=== PATIENT | male | born 1940 | race Caucasian/White ===

== ENCOUNTER → 2017-09-21 14:53 | Outpatient (CLI) | payer MEDICARE, OTHER, SELFPAY ==
[2017-09-21 18:01] LABS: BNP,B-Type NATRIURETIC PEPTIDE 116.3 pg/mL (0-100)
[2017-09-21 18:04] LABS: Anion Gap 8 (5-15); BUN 20 mg/dL (7-18); BUN/Creat Ratio 15.9 RATIO (10-20); Calcium,Total 8.7 mg/dL (8.5-10.1); Chloride 101 mmol/L (98-107); Creatinine, Serum 1.26 mg/dL (0.70-1.30); EST Glomerular Filtration Rate 59 mL/min (>60); Est Glom Filt Rate - Afr Amer 71 mL/min (>60); Glucose 116 mg/dL (70-110); Potassium 3.8 mmol/L (3.5-5.1); Sodium Level 136 mmol/L (136-145); Thyroid Stim Hormone (TSH) 2.13 uIU/mL (0.358-3.74)
== END ==
PROVIDERS: Family Provider Family Medicine; PCP Family Medicine; Visit Provider Family Medicine
DX: I50.9 Heart failure, unspecified (principal); R06.00 Dyspnea, unspecified
CPT/HCPCS: 36415; 80048; 83880; 84443

== ENCOUNTER → 2017-10-07 13:56 | Outpatient (CLI) | payer MEDICARE, OTHER, SELFPAY | PROVIDERS: Family Provider Family Medicine; PCP Family Medicine; Visit Provider Family Medicine | DX: I50.9 Heart failure, unspecified (principal); R06.00 Dyspnea, unspecified | CPT/HCPCS: 93306 ==

== ENCOUNTER → 2017-11-30 13:47 | Outpatient (CLI) | payer MEDICARE, OTHER, SELFPAY ==
[2017-11-30 15:59] LABS: AST(SGOT) 50 U/L (15-37); Alanine Aminotransfer ALT/SGPT 46 U/L (16-61); Albumin, Serum 3.6 g/dL (3.2-5.0); Alkaline Phosphatase 110 U/L (45-117); Anion Gap 9 (5-15); BUN 21 mg/dL (7-18); BUN/Creat Ratio 15.9 RATIO (10-20); Calcium,Total 8.7 mg/dL (8.5-10.1); Chloride 104 mmol/L (98-107); Creatinine, Serum 1.32 mg/dL (0.70-1.30); EST Glomerular Filtration Rate 56 mL/min (>60); Est Glom Filt Rate - Afr Amer 67 mL/min (>60); Globulin 3.6 g/dL (2.2-4.2); Glucose 102 mg/dL (74-106); Magnesium 1.9 mg/dL (1.6-2.6); Potassium 3.5 mmol/L (3.5-5.1); Protein, Total 7.2 g/dL (6.4-8.2); Sodium Level 141 mmol/L (136-145); T4 Free Direct 1.08 ng/dL (0.76-1.46); Thyroid Stim Hormone (TSH) 3.48 uIU/mL (0.358-3.74)
== END ==
PROVIDERS: Family Provider Family Medicine; PCP Family Medicine; Visit Provider Family Medicine
DX: I49.9 Cardiac arrhythmia, unspecified (principal); I10 Essential (primary) hypertension; E11.9 Type 2 diabetes mellitus without complications; R60.9 Edema, unspecified
CPT/HCPCS: 36415; 80053; 83735; 84439; 84443

== ENCOUNTER → 2017-12-24 12:53 | Outpatient (CLI) | payer MEDICARE, OTHER, SELFPAY ==
--- NOTE | 2017-12-24 12:55 | ECHOD_ITS ---
Reason For Study: NEW ONSET AFIB Procedure This was a 2D Doppler, Color Flow transthoracic echocardiogram. The exam was of poor technical quality due to body habitus. The study was technically difficult. Exam performed in department. Left Ventricle Normal LV size. Moderate concentric left ventricular hypertrophy. Left ventricular systolic function is normal. The estimated ejection fraction is 60 %. Unable to assess diastolic dysfunction due to arrhythmia. No regional wall motion abnormalities noted. Right Ventricle Normal RV size. Normal systolic function. Atria The left atrium is mildly enlarged. The right atrium is moderately enlarged. No doppler evidence for ASD. Mitral Valve There is no mitral annular calcification. Normal mitral valve. Trivial mitral valve insufficiency. Tricuspid Valve Normal tricuspid valve. Mild tricuspid valve insufficiency. Right ventricular systolic pressure estimated to be 37 mmHg. Aortic Valve Trisinus/trileaflet aortic valve. Mild focal aortic valve thickening. Pulmonic Valve The pulmonic valve is not well visualized. Trivial pulmonic valve insufficiency. Great Vessels Normal sized aortic root. Pericardium/Pleural No pericardial effusion. MMode/2D Measurements & Calculations LVIDd: 4.0 cm IVSd: 1.8 cm Ao root diam: 3.3 cm LVIDs: 2.9 cm LVPWd: 1.6 cm RVDd: 4.3 cm FS: 27.6 % LAV(MOD-bp): 77.1 ml EDV(MOD-sp4): 89.4 ml SV(MOD-sp4): 47.0 ml LAV(MOD-bp) Indexed: 33.7 ml/m2 ESV(MOD-sp4): 42.4 ml LAV(MOD-sp2): 88.0 ml EF(MOD-sp4): 52.5 % LAV(MOD-sp4): 64.6 ml LA A4 area: 22.7 cm2 RA A4 area: 21.5 cm2 Doppler Measurements & Calculations MV E max mary: 78.0 cm/sec Ao V2 max: 95.6 cm/sec LV V1 max: 86.7 cm/sec Ao max P.7 mmHg LV V1 max P.0 mmHg PA V2 max: 99.9 cm/sec TR max mary: 270.6 cm/sec TR max P.3 mmHg Interpretation Summary The study was technically difficult. Left ventricular systolic function is normal. The estimated ejection fraction is 60 %. Moderate concentric left ventricular hypertrophy. The left atrium is mildly enlarged. The right atrium is moderately enlarged. Trivial mitral valve insufficiency. Mild tricuspid valve insufficiency. Mild focal aortic valve thickening. Trivial pulmonic valve insufficiency. Right ventricular systolic pressure estimated to be 37 mmHg. Unable to assess diastolic dysfunction due to arrhythmia. Ordering Physician: Man Cha Referring Physician: Man Cha Performed By: Clemencia Matos RDCS
== END ==
PROVIDERS: Family Provider Family Medicine; PCP Family Medicine; Visit Provider Family Medicine
DX: I48.91 Unspecified atrial fibrillation (principal); R60.0 Localized edema
CPT/HCPCS: 93306

== ENCOUNTER → 2018-03-22 10:57 | Day surgery (SDC) | payer MEDICARE, OTHER, SELFPAY ==
[2018-03-21 10:48] VITALS: BMI 37.4
[2018-03-22 11:16] LABS: Prothrombin Time Fingerstick 23.7 SEC (11.9-14.4)
--- NOTE | 2018-03-22 13:08 | OP.PCM_ITS ---
Operative Report Date of Procedure: 03/22/18 CONSCIOUS SEDATION REPORT DATE OF SERVICE: March 22, 2018 BRIEF HISTORY OF PRESENT ILLNESS: The patient is a 77-year-old male who presented to [facility] for elective outpatient cardioversion due to underlying atrial fibrillation. The patient's last surface echocardiogram completed in December 2017 revealed moderate concentric LVH with an ejection fraction of 60%. The patient does have suspected obstructive sleep apnea, but is never undergone formal polysomnogram. He denies a history of COPD or asthma. He is not oxygen dependent at his baseline. He denies any recent constitutional symptoms such as fevers, chills, nausea or vomiting. He has never undergone a previous cardioversion. PHYSICAL EXAMINATION: VITAL SIGNS: Reviewed and were acceptable. GENERAL: The patient is a male, in no apparent distress, speaking in full sentences. HEENT: Normocephalic, atraumatic. Mucous membranes are moist and pink. Good mouth opening noted. Trachea is midline. Good neck mobility. MP III CHEST: S1, S2 irregularly irregular. No murmurs, rubs or gallops were noted. LUNGS: Clear to auscultation bilaterally without appreciable wheezes, rales or rhonchi. ABDOMEN: Soft, nontender, nondistended. Positive bowel sounds. Obese. EXTREMITIES: There is no clubbing, cyanosis or edema. ASA Class: II DESCRIPTION OF PROCEDURE: After confirmation of informed consent, the patient's anesthesia plan was reviewed in detail. Propofol was chosen. Risks and benefits were reviewed and the patient agreed to proceed. At 1238, the patient was given 40 mg of propofol. The patient achieved an appropriate level of sedation and was given a 200 joule synchronized cardioversion by Dr. Sanabria at the bedside. This was successful in achieving normal sinus rhythm. The patient was monitored until 1246, at which time he reached his baseline mental status and function. The patient tolerated the procedure well. COMPLICATIONS: None ESTIMATED BLOOD LOSS: None RECOMMENDATIONS: Okay to recover in usual fashion. Code Visit 9xxxx: Other Procedure See Report - [id number]
--- NOTE | 2018-03-22 13:50 | PCM.OP.BLANK ---
Problem List (1) Atrial fibrillation Status: Acute Qualifiers: Atrial fibrillation type: persistent Qualified Code(s): I48.1 - Persistent atrial fibrillation Operative Report Date of Procedure: 03/22/18 Procedure: Synchronized biphasic DC cardioversion Indications: Atrial fibrillation Consent: Per the patient Anesthesia: Per Dr. Dalton of pulmonology and critical care medicine with propofol 40 mg IV push total Procedure: Synchronized biphasic DC cardioversion: 200 J ?1: Result: Sinus rhythm; PACs Complications: No apparent complications This note was generated with TRIRIGAation software. It may contain incorrect words, spelling, and punctuation that were not noted in checking the note before signing.
--- NOTE | 2018-03-22 13:53 | OP.PCM_ITS ---
Problem List (1) Atrial fibrillation Status: Acute Qualifiers: Atrial fibrillation type: persistent Qualified Code(s): I48.1 - Persistent atrial fibrillation Operative Report Date of Procedure: 03/22/18 Procedure: Synchronized biphasic DC cardioversion Indications: Atrial fibrillation Consent: Per the patient Anesthesia: Per Dr. Dalton of pulmonology and critical care medicine with propofol 40 mg IV push total Procedure: Synchronized biphasic DC cardioversion: 200 J ?1: Result: Sinus rhythm; PACs Complications: No apparent complications This note was generated with CrossTxation software. It may contain incorrect words, spelling, and punctuation that were not noted in checking the note before signing.
== END ==
PROVIDERS: Family Provider Family Medicine; PCP Family Medicine; Visit Provider Internal Medicine Cardiovascular Disease
DX: I48.0 Paroxysmal atrial fibrillation (principal); I48.1 Persistent atrial fibrillation; I10 Essential (primary) hypertension; E78.5 Hyperlipidemia, unspecified; E11.9 Type 2 diabetes mellitus without complications; Z79.01 Long term (current) use of anticoagulants; Z79.84 Long term (current) use of oral hypoglycemic drugs; Z79.899 Other long term (current) drug therapy
CPT/HCPCS: 36416; 85610; 92960; 93005; J7040

== ENCOUNTER → 2018-06-21 12:44 | Outpatient (CLI) | payer MEDICARE, OTHER, SELFPAY ==
--- NOTE | 2018-06-21 12:46 | CT_ITS ---
STUDY: CT LEFT SHOULDER REASON FOR EXAM: Male, 77 years old. Osteoarthritis. RADIATION DOSAGE (If Supplied By Facility): CTDIvol = ( 47.97 ) mGy, DLP = ( 1258.83 ) mGycm TECHNIQUE: The patient was scanned in a multi detector CT scanner. High resolution transaxial imaging was performed without the administration of intravenous contrast material. Sagittal and coronal images were reconstructed. Individualized dose optimization techniques were used for this CT. COMPARISON: None. FINDINGS: There is severe osteoarthritis, with severe articular joint space narrowing, osteoarthritic spurring, articular remodeling, and with articular erosions. There is joint effusion. There is 0.8 cm loose body in the joint. There is decreased subacromial space consistent with chronic rotator cuff tear. There is atrophy of the supraspinatus and infraspinatus muscles Normal glenoid rim, neck and visualized scapula. Normal humeral head, neck and tuberosities. Normal coracoid process. Normal visualized lateral clavicle. There is hypertrophic osteoarthritis with prominent osseous hypertrophy, with a potential for impingement upon the supraspinatus muscle. There is a Type II morphology (curved) acromion, with a neutral orientation. Normal visualized soft tissue structures. Fibrotic densities in the lungs. CT/Extremity Upper without Contra IMPRESSION: Glenohumeral and acromioclavicular arthrosis. Chronic rotator cuff tear. Electronically Signed: Maxim Espinoza MD at 20:34 EDT , Service support ,
== END ==
PROVIDERS: Family Provider Family Medicine; PCP Family Medicine; Referring Provider Specialist; Visit Provider Specialist
DX: Z01.818 Encounter for other preprocedural examination (principal); M19.212 Secondary osteoarthritis, left shoulder
CPT/HCPCS: 73200

== ENCOUNTER 2018-08-03 05:27 | Inpatient (IN) | payer MEDICARE, OTHER, SELFPAY ==
[2018-03-21 10:48] VITALS: BMI 37.4
[2018-07-22 15:35] VITALS: BP 136/65; PULSE 77; RESP 16; TEMP 36.4; O2SAT 97; BMI 37.8
[2018-07-22 16:13] LABS: Absolute Lymphocyte Count 1.33 X10^3/ul (0.83-4.51); Absolute Neutrophil Count 7.3 X10^3/uL (2.0-7.7); Basophil# 0.02 X10^3/uL; Basophil% 0.2 % (0-1); Eosinophil# 0.04 X10^3/uL; Eosinophils% 0.4 % (0-5); Hemoglobin 15.2 g/dl (13.0-16.5); Lymphocyte # 1.33 X10^3/ul (4.0); Lymphocyte % 14.2 % (19-41); Mean Corp Hgb Conc 33.8 g/gl (32-36); Mean Corpuscular Hgb 31.2 pg (27.0-32.0); Mean Corpuscular Volume 92.4 fL (80-94); Mean Platelet Vol. 9.3 fl (6.2-12.0); Monocyte# 0.63 X10^3/uL; Monocyte% 6.7 % (0-10); Neutrophil # 7.34 X10^3/uL (2.7-7.7); Neutrophil % 78.2 % (47-70); Platelet Count 244 K/mm3 (150-450); RBC Distribution Width SD 43.7 fl (35.1-43.9); Red Blood Count 4.87 M/mm3 (4.6-6.2); White Blood Count 9.4 K/mm3 (4.4-11.0)
[2018-07-22 16:14] LABS: POSITIVE COUNT NO; POSITIVE DIFFERENTIAL NO; POSITIVE MORPHOLOGY NO
[2018-07-22 17:07] LABS: Anion Gap 9 (5-15); BUN 21 mg/dL (7-18); BUN/Creat Ratio 16.3 RATIO (10-20); Calcium,Total 8.9 mg/dL (8.5-10.1); Chloride 102 mmol/L (98-107); Creatinine, Serum 1.29 mg/dL (0.70-1.30); EST Glomerular Filtration Rate 57 mL/min (>60); Est Glom Filt Rate - Afr Amer 69 mL/min (>60); Estimated Creatinine Clearance 45.67 ml/min; Glucose 164 mg/dL (74-106); Potassium 3.7 mmol/L (3.5-5.1); Sodium Level 139 mmol/L (136-145)
--- NOTE | 2018-07-22 22:54 | HP.PCM_ITS ---
History and Physical DATE OF SURGERY: 08/03/2018 SCHEDULED PROCEDURE: Left Reverse Total Shoulder Arthroplasty HISTORY OF PRESENT ILLNESS: This is an 78-year-old male whose been having ongoing pain in his left shoulder for several years. Patient does report having an injury years ago when he tripped and fell. He states over the past several months it has progressively increased. Patient has difficult time and pain with activities overhead. Patient has limited motion on the left side when compared to his right dominant side. X-rays do reveal severe rotator cuff arthropathy on the left shoulder. After failing conservative measures and discussing treatment options with Dr. Vick Faulkner, the patient would like to proceed with a reverse left total shoulder arthroplasty. Patient does have a medical history pertinent for history of atrial fibrillation in which she underwent a cardioversion approximately 2-3 months ago. Patient has been on Coumadin. He has been treated and seen by his cash management clerk Dr. Henry. We have obtain surgical clearance from the cash management clerk and able to stop the Coumadin 3-5 days prior to surgery. We will also obtain surgical clearance from the primary care physician. Patient also has medical history pertinent for hypertension, gout, type 2 diabetes mellitus. Patient currently denies any recent chest pain, shortness of breath, fevers chills. REVIEW OF SYSTEMS: ROS: Const: Denies change in appetite, fever and weight change. CV: Reports irregular heartbeat, but denies chest pain and heart murmur. Resp: Denies cough, pneumonia, shortness of breath, tuberculosis and wheezing. GI: Denies constipation, diarrhea, heartburn, nausea, rectal itching, bloody stools and vomiting. : Denies incontinence. Musculo: Reports leg swelling, trouble walking and weakness, but denies pain. Skin: Denies Raynaud's, history of shingles and tattoo. Neuro: Reports difficulty with balance and numbness/tingling but denies ambulatory dysfunction, dizziness and tremor. Psych: Denies anxiety, insomnia and stress. Rowdy/Lymph: Denies anemia, bleeding/bruising tendency and past transfusion. Reviewed, no changes. PAST MEDICAL HISTORY: Advance Care Plan: Other Directive, POA Effective Date: 06/16/2018 Other Directive, LIVING WILL Effective Date: 06/16/2018 PMH: Medical Problems: Arthritis, Congestive Heart Failure (CHF), Diabetes, Gout, High Blood Pressure, Kidney Stones Accidents: Fracture - RT WRIST---1951 Surgical Hx: Hernia Repair - (2009) Kidney Stones - (1999) RT CTR, LT CTR RT TKR - (2003) LT TKR - (2009) Back SX - (2009) Anesthesia Complications: None Assistive Devices: Cane Reviewed, no changes. SOCIAL HISTORY: SH: Marital: .Occupation: Retired.Work Status: Retired.Hand Dominance: Right-handed. Personal Habits: Cigarette Use: Light tobacco smoker (10 or fewer cigarettes/day) - PIPE.Smokeless Tobacco: Never Used Smokeless Tobacco.Alcohol: Denies use.Drug Use: Denies Use.Enjoy Exercising: Never Exercises. Reviewed, no changes. VITALS: Ht: 68.5 Wt: 252lb Wt k.307 BMI: 37.8 BP: 136/80 Pulse: 76 Resp: 16 T: 97.5 T: 36.4C ALLERGIES: No Known Drug Allergy MEDICATIONS: Metformin HCL 500 mg 1 by mouth twice a day, Atenolol 100 mg 1 tab PO daily, Allopurinol 100 mg 1 tab PO daily, Oxybutynin Chloride ER 20mg 1 tab PO daily, Amlodipine Besylate 5 mg 1 tab PO daily, Hydrochlorothiazide 12.5 mg 1 tab PO daily, Warfarin Sodium 2.5 mg 1 tab PO daily, Warfarin Sodium 1 mg 1 tab PO along with 2.5 mg every other day (3.5mg) PRE-OP EXAM: General appearance:NORMAL Other: Eyes: Conjunctivae and lids: NORMAL Pupils: ERR Ears, Nose, Mouth, and Throat: NORMAL Other: Inspection of lips, teeth and gums: NORMAL Other: Neck: Examination of neck: no masses noted. Respiratory: Assessment of respiratory effort: NORMAL Other: Auscultation of lungs: clear to auscultation no wheezes, rhonchi or rales. Cardiovascular: Auscultation of heart: regular rate and rhythm, no murmurs, gallops or rubs. Exam of carotid arteries: NORMAL Other: Gastrointestinal: Exam of abdomen: soft, nontender, nondistended bowel sounds present. PHYSICAL EXAMINATION: Left shoulder is cool to touch without erythema or signs of infection. Patient has tenderness to palpation diffusely left shoulder. Range of motion left shoulder internal rotation to beltline, forward elevation 50 actively, 140 passively, sensation intact to light touch axillary, radial, median, ulnar nerve distribution. Patient has 1/5 supraspinatus strength test. Motor intact to AIN, PA, and ulnar nerve. IMAGING STUDIES: X-rays of the left shoulder reveals severe glenohumeral joint space narrowing with superior migration of the humeral head and impaction lesions on the undersurface of the acromion and lateral greater tuberosity. This is consistent with severe rotator cuff arthropathy. There is associated subchondral sclerosis and osteophyte formation. IMPRESSION: 1. Severe left shoulder rotator cuff arthropathy 2. History of atrial fibrillation: Currently on Coumadin 3. Type 2 diabetes mellitus 4. History of gout 5. Hypertension 6. History of kidney stones. PLAN: Dr. Vick Faulkner did discuss and review with the patient all treatment options including surgical versus nonsurgical options. Patient does wish to proceed with the above-stated procedure. Potential risks, benefits, and complications of the procedure were discussed in detail including but not limited to , infection, nerve and blood vessel damage, persistent pain, numbness, tingling, paresthesias, blood clot, pulmonary embolism, and requirement for possible further surgery. The patient expressed full understanding and has no further questions for the doctor. Patient does agree to proceed with the above-stated procedure and has signed the surgery consent form. This dictation was created using voice recognition software. Phonetic and/or grammatical errors may exist.. ___ I have re-examined the patient. There are no clinical changes since date of exam. ___ See progress notes for changes. ___ Dictated on admission Date: Time: Signature:
[2018-07-27 13:56] LABS: Albumin, Serum 3.4 g/dL (3.2-5.0)
[2018-08-03] VITALS (10 sets, daily range): BP systolic 95–123; BP diastolic 63–76; PULSE 62–73; RESP 16–18; TEMP 36.1–36.7; O2SAT 96–100; BMI 37.8
[2018-08-03] MEDS: Acetaminophen 500 MG Tablet 1000 MG PO ×3 (06:15→22:14)
[2018-08-03] MEDS: Celecoxib 200 MG Capsule 400 MG PO (06:16)
[2018-08-03 06:25] LABS: Bedside Glucose 146 mg/dL (70-110)
[2018-08-03] MEDS: Ipratropium/Albuterol Sulfate 3 ML AMPUL.NEB INHALATION (07:00)
[2018-08-03] MEDS: Cefazolin 2 GM in 0.9% Normal Saline 100 ML IV (07:15)
[2018-08-03] MEDS: Ketorolac 30 MG/ML Syringe (08:40)
--- NOTE | 2018-08-03 08:41 | PCM.OPRPT ---
Report of Operation Date of Procedure: 08/03/18 Pre-Operative Diagnosis: Left shoulder cuff tear arthropathy Post-Operative Diagnosis: Left shoulder cuff tear arthropathy Surgery/Procedure Performed:: Left reverse total shoulder replacement Description of Surgical Findings:: Stable shoulder retail account specialist: Renata Salamanca Type of Anesthesia:: General Anesthesiologist: Jakob Livingston Special Medications: 2 g Ancef, 2 g TXA 1 minute lavage in joint at end of case, 10 mg Decadron, joint cocktail (5 mg Duramorph, 30 mL of 0.5% Ropivicaine, 1000 units of epinephrine, 30 mg of Toradol) vancomycin IV throughout the case Specimen's removed: Bony cuts Estimated Blood Loss (mL): 150 Fluids Replaced: 600 mL crystalloid Description of Procedure: Components used 1. glenoid baseplate for reverse TSA 2. 36, 2 mm eccentric, +2 mm Glenosphere 3. 36 mm, 4mm humeral liner 4. Reverse TSA humeral adapter tray 36, 4mm 5. Humeral stem primary press-fit 4mm size Brief history/Operative indications: 78 yo m with history of l shoulder pain and cuff tear arthropathy. Patient failed conservative measures as mentioned in the H&P. After discussion of risk and benefits of reverse total shoulder replacement including but not limited to blood loss, DVTs, PEs, nerve vessel damage, infection, general risk of anesthesia including loss of life, instability and stiffness patient demonstrating understanding wish to proceed was able to sign informed consent. Medical clearance was obtained. Procedure: On the date of the procedure, patient's L upper extremity was marked in the preoperative area. Patient was taken back to the operating room where they were placed on the table in the supine position. Anesthesia assumed control of the C-spine and airway, then administered anesthetic. All bony prominences were identified well-padded, the head was secured and the patient was placed in the beachchair position at about 35? inclination. Anesthesia remained in control of the C-spine airway throughout the remainder of the procedure. Patient was then appropriately fastened to the table and the L upper extremity was prepped in a sterile fashion. The surgeons then scrubbed. Upon reentering the room, the L upper extremity was draped in a sterile fashion and the incision was marked out. Timeout was called, everyone agreed upon the side, the site, the procedure to be performed, patient identity and antibiotics given. Incision was taken down through skin and subcutaneous tissue, fat down to fascia. The stripe of the deltopectoral interval and cephalic vein were identified and blunt dissection was used to retract the deltoid. The cephalic vein was retracted laterally. Clavipectoral fascia was then incised and a cobra retractor was placed in the wound. The proximal one third of the pectoralis major insertion was released. Pectoralis tendon insertion was used to tenodesed the biceps tendon which was identified in the bicipital groove. Tenodesis was done with #1 Vicryl. Proximally we followed the biceps tendon after transecting it into the rotator interval. The rotator interval was split and the arm was externally rotated. The split was 1 cm medial to the bicipital groove. Subscapularis tendon was released. We released down the anterior portion of the humeral head and a phan elevator was used to release the inferior portion of the humeral head. The arm was externally rotated and the shoulder was dislocated. The [employer] humeral head cutting guide was used to make humeral cut. This was done at 20? retroversion. Once his humeral head cut was made humerus was retracted out of the way and the glenoid was exposed. After exposing the glenoid, the labrum and the remaining proximal biceps were debrided. At this time we are able to view the entire outer edge of the glenoid. A central pin was placed we sequentially reamed over this central pin to 36mm. Once this was completed the central pedicle was drilled. The glenoid baseplate was impacted into place. Wound was closely irrigated out with normal saline we then drilled sequentially for 2 screws. Screws were placed superiorly and inferiorly and tightened down the screws. Once the screws were appropriately tightened into place the glenoid baseplate was compressed against the exposed subchondral bone. A 36 mm glenosphere was impacted into place engaging the Celaya taper. Attention was then turned towards the humerus. The humerus was again externally rotated exposing the proximal portion of the humerus. Central canal finder was then used to open up the canal. We reamed to a 16mm reamer. We then broached to a 16mm stem. We trialed the 4mm liner, with the 4mm humeral baseplate. We obtained an adequate reduction at this time with a nice stable shoulder. Good internal rotation to the gluteus, forward elevation to 140?, external rotation to 20?. Final components were then assembled on the back table, trials were removed and the wound was copiously irrigated with normal saline after dislocating the shoulder. Once the final components were assembled they were impacted into place. Shoulder was then reduced and found to be stable with good range of motion. Subscapularis tendon was not repairable. The wound was then copiously irrigated out with a 1 L normal saline lavage. The deltopectoral fascia was then closed using #1 Vicryl skin was closed using 2-0 Vicryl interrupted sutures and final skin closure was done with 3-0 Monocryl. Steri-Strips are placed for final skin closure. Sterile dressing was placed patient was then placed in a sling and awakened by anesthesia. Patient was then transferred to the PACU for recovery. Postoperative plan: Patient will be admitted to the hospital overnight. They will get physical therapy starting in 2 weeks with normal postoperative regimen. Patient will be placed on asa daily for DVT prophylaxis. The first postoperative appointment will be in 2 weeks for wound check and initiation of phase 1 physical therapy. Grafts/Implants Used: Sloan reunion reverse total shoulder - Complications None - Admit VTE Documentation VTE Present on Admission: No VTE Mechan Device Prophylaxis: SCD's, Thigh High ALBERTO Hose VTE Pharm Prophylaxis ordered?: Yes
[2018-08-03] MEDS: Scopolamine 1mg/72hr Patch 1 PATCH TD (09:45)
--- NOTE | 2018-08-03 09:45 | RAD_ITS ---
STUDY: X-RAY - LEFT SHOULDER REASON FOR EXAM: Male, 78 years old. Status post left shoulder replacement. TECHNIQUE: 2 view(s) of the shoulder. COMPARISON: Comparison is made with prior CT scan of the left shoulder dated June 21, 2018. FINDINGS: The patient is status post left reverse shoulder replacement. There is good alignment. Postoperative soft tissue changes. RAD/Shoulder One View IMPRESSION: Status post left shoulder replacement. There is good alignment. Postoperative soft tissue changes. Electronically Signed: Dong Multani MD at 12:18 EST Tel [phone], Service support ,
[2018-08-03 10:15] LABS: Bedside Glucose 196 mg/dL (70-110)
[2018-08-03] MEDS: Lactated Ringers 1,000 ML 125 ML IV ×3 (10:18→20:29)
[2018-08-03 12:10] LABS: Bedside Glucose 180 mg/dL (70-110)
--- NOTE | 2018-08-03 12:22 | PCM.PN.HOSP ---
Subjective: Patient seen and examined. 78-year-old male past medical history of CHF with preserved EF, type II DM, hypertension, history of gout, kidney stones, who has been having ongoing left shoulder pain after an injury. Pain in the left shoulder has been restricting his activities. He was admitted for elective left shoulder arthroplasty Patient is postop day #0 status post left shoulder arthroplasty Vitals/I&O's: Vital Signs Temp Pulse Resp BP Pulse Ox 97.8 F 64 18 104/71 96 08/03/18 10:41 08/03/18 10:41 08/03/18 10:41 08/03/18 10:41 08/03/18 10:41 Oxygen Flow Rate (L/min) 2 Oxygen Delivery Method Room Air Weight: 116.3 kg Body Mass Index (BMI) 37.8 Finger Stick Blood Glucose 196 Intake and Output for Last 24 Hours 08/01/18 08/02/18 08/03/18 23:59 23:59 23:59 Intake Total 1000 / 1000 Balance 1000 / 1000 General: Alert, Oriented x3, Cooperative, No apparent distress, - - obese HEENT: Atraumatic, PERRLA, EOMI, Normocephalic Oral: Moist Mucosa Neck: Supple, No JVD, Negative Carotid Bruits Lungs: Clear to auscultation, Normal air movement Cardiovascular: Regular rate, No murmurs Abdomen: Bowel Sounds Present, Soft, Non Tender, Non-Distended, No Hepato-splenomegaly Extremities: No edema, Edema - Left shoulder in a brace, dressing and cooling mat in place. Skin: No rashes, No breakdown Musculoskeletal: No Tenderness to Palpation of Joints or Extremities Lymphatic: No Cervical, Supraclavicular, or Inguinal Adenopathy Neurological: Cranial nerves II-XII grossly intact, Neuro grossly intact Psych/Mental Status: Normal Affect, Appropriate Laboratory Results 08/03/18 05:56: POC Glucose 146 H 08/03/18 05:58: POC PT 14.0, INR 1.20 08/03/18 10:09: POC Glucose 196 H 08/03/18 11:54: POC Glucose 180 H Current Medications Acetaminophen (Tylenol) 1,000 mg PO Q8 DENIZ Albuterol Sulfate (Ventolin Aerosols) 2.5 mg INHALATION Q4H PRN PRN PRN Reason: SOB &/OR WHEEZING Allopurinol (Zyloprim) 300 mg PO DAILY@0800 [facility] Amlodipine Besylate (Norvasc) 5 mg PO DAILY [facility] Famotidine (Pepcid) 20 mg PO DAILY [facility] Furosemide (Lasix) 20 mg PO MOWE [facility] Hydrochlorothiazide () 12.5 mg PO DAILY [facility] Cefazolin Sodium () 1 gm in 50 mls @ 150 mls/hr IV Q8H [facility] Stop: 08/03/18 23:19 Lactated Ringer's () 1,000 mls @ 125 mls/hr IV .Q8H [facility] Last Admin: 08/03/18 11:45 Dose: 125 mls/hr Insulin Human Lispro (Humalog Kwikpen (Bkc)) 0 unit SC [facility]; Protocol Last Admin: 08/03/18 11:55 Dose: Not Given Ketorolac Tromethamine (Toradol) 15 mg IV Q6H PRN PRN PRN Reason: PAIN [facility] Last Admin: 08/03/18 10:49 Dose: Not Given Metoprolol Succinate (Toprol Xl (Beta Zeina)) 50 mg PO DAILY [facility] Morphine Sulfate () 2 - 4 mg IV Q2H PRN PRN PRN Reason: Severe pain (6-10) Morphine Sulfate () 2 - 4 mg IV Q2H PRN PRN PRN Reason: Severe pain (6-10) Nutritional Formula (Lactose Free) (Glucerna Shake) 120 [facility] Ondansetron HCl (Zofran) 4 mg IV Q6H PRN PRN PRN Reason: Nausea Oxycodone HCl (Oxyir) 5 - 10 mg PO Q4H PRN PRN PRN Reason: PAIN Potassium Chloride (K-Dur) 20 meq [facility] Last Admin: 08/03/18 10:49 Dose: Not Given Promethazine HCl (Phenergan) 12.5 mg IV Q6H PRN PRN PRN Reason: NAUSEA/VOMITING Scopolamine HBr (Transderm-Scop) 1 patch TD Q3D [facility] Last Admin: 08/03/18 09:45 Dose: 1 patch Senna/Docusate Sodium (Senokot-S, Meseret-Colace) 2 tablet PO BID PRN PRN PRN Reason: Constipation Sodium Chloride () 5 - 15 ml IV UD PRN PRN Reason: SALINE FLUSH Tolterodine Tartrate (Detrol La) 4 mg PO DAILY [facility] Warfarin Sodium (Coumadin (Pbkc)) 2.5 mg PO QODAY@1700 [facility] Warfarin Sodium (Coumadin (Pbkc)) 3 mg PO QODAY@1700 [facility] Medical Necessity - Tobacco Use Smoking Status: Current some day smoker Tobacco Use: Pipe Assessment/Plan All Active Problems Atrial fibrillation (Acute) 78-year-old with past medical history of chronic atrial fibrillation, heart failure preserved EF, hypertension, type II DM, who comes in with complaints of left shoulder pain ongoing for years, limiting his activities. Patient is status post left shoulder replacement. 1. POD #0 status post left total shoulder arthroplasty for left shoulder cuff tear arthroplasty, pain is controlled, further management per orthopedic surgery. 2. Chronic atrial fibrillation, rate controlled, metoprolol, Coumadin, INR is subtherapeutic now at 1.20 3. Hypertension, controlled, on amlodipine, HCTZ, metoprolol, will continue to monitor. 4. Type II DM, HgBA1c is 7.0, on metformin, will continue with accucheks and ISS 5. Gout, no signs of acute gouty attack, on allopurinol 6. DVT PPx- on coumadin, SCDS and early ambulation; INR is subtherapeutic. Code Visit Inpatient E&M: 16509 Subs Hosp L2
--- NOTE | 2018-08-03 12:28 | PN_ITS ---
Subjective: Patient seen and examined. 78-year-old male past medical history of CHF with preserved EF, type II DM, hypertension, history of gout, kidney stones, who has been having ongoing left shoulder pain after an injury. Pain in the left shoulder has been restricting his activities. He was admitted for elective left shoulder arthroplasty Patient is postop day #0 status post left shoulder arthroplasty Vitals/I&O's: Vital Signs Temp Pulse Resp BP Pulse Ox 97.8 F 64 18 104/71 96 08/03/18 10:41 08/03/18 10:41 08/03/18 10:41 08/03/18 10:41 08/03/18 10:41 Oxygen Flow Rate (L/min) 2 Oxygen Delivery Method Room Air Weight: 116.3 kg Body Mass Index (BMI) 37.8 Finger Stick Blood Glucose 196 Intake and Output for Last 24 Hours 08/01/18 08/02/18 08/03/18 23:59 23:59 23:59 Intake Total 1000 / 1000 Balance 1000 / 1000 General: Alert, Oriented x3, Cooperative, No apparent distress, - - obese HEENT: Atraumatic, PERRLA, EOMI, Normocephalic Oral: Moist Mucosa Neck: Supple, No JVD, Negative Carotid Bruits Lungs: Clear to auscultation, Normal air movement Cardiovascular: Regular rate, No murmurs Abdomen: Bowel Sounds Present, Soft, Non Tender, Non-Distended, No Hepato- splenomegaly Extremities: No edema, Edema - Left shoulder in a brace, dressing and cooling mat in place. Skin: No rashes, No breakdown Musculoskeletal: No Tenderness to Palpation of Joints or Extremities Lymphatic: No Cervical, Supraclavicular, or Inguinal Adenopathy Neurological: Cranial nerves II-XII grossly intact, Neuro grossly intact Psych/Mental Status: Normal Affect, Appropriate Laboratory Results 08/03/18 05:56: POC Glucose 146 H 08/03/18 05:58: POC PT 14.0, INR 1.20 08/03/18 10:09: POC Glucose 196 H 08/03/18 11:54: POC Glucose 180 H Current Medications Acetaminophen (Tylenol) 1,000 mg PO Q8 DENIZ Albuterol Sulfate (Ventolin Aerosols) 2.5 mg INHALATION Q4H PRN PRN PRN Reason: SOB &/OR WHEEZING Allopurinol (Zyloprim) 300 mg PO DAILY@0800 [facility] Amlodipine Besylate (Norvasc) 5 mg PO DAILY [facility] Famotidine (Pepcid) 20 mg PO DAILY [facility] Furosemide (Lasix) 20 mg PO MOWE [facility] Hydrochlorothiazide () 12.5 mg PO DAILY [facility] Cefazolin Sodium () 1 gm in 50 mls @ 150 mls/hr IV Q8H [facility] Stop: 08/03/18 23:19 Lactated Ringer's () 1,000 mls @ 125 mls/hr IV .Q8H [facility] Last Admin: 08/03/18 11:45 Dose: 125 mls/hr Insulin Human Lispro (Humalog Kwikpen (Bkc)) 0 unit SC [facility]; Protocol Last Admin: 08/03/18 11:55 Dose: Not Given Ketorolac Tromethamine (Toradol) 15 mg IV Q6H PRN PRN PRN Reason: PAIN Metformin [facility] (Glucophage) [facility] Last Admin: 08/03/18 10:49 Dose: Not Given Metoprolol Succinate (Toprol Xl (Beta Zeina)) 50 mg PO DAILY [facility] Morphine Sulfate () 2 - 4 mg IV Q2H PRN PRN PRN Reason: Severe pain (6-10) Morphine Sulfate () 2 - 4 mg IV Q2H PRN PRN PRN Reason: Severe pain (6-10) Nutritional Formula (Lactose Free) (Glucerna Shake) 120 [facility] Ondansetron HCl (Zofran) 4 mg IV Q6H PRN PRN PRN Reason: Nausea Oxycodone HCl (Oxyir) 5 - 10 mg PO Q4H PRN PRN PRN Reason: PAIN Potassium Chloride (K-Dur) 20 meq [facility] Last Admin: 08/03/18 10:49 Dose: Not Given Promethazine HCl (Phenergan) 12.5 mg IV Q6H PRN PRN PRN Reason: NAUSEA/VOMITING Scopolamine HBr (Transderm-Scop) 1 patch TD Q3D [facility] Last Admin: 08/03/18 09:45 Dose: 1 patch Senna/Docusate Sodium (Senokot-S, Meseret-Colace) 2 tablet PO BID PRN PRN PRN Reason: Constipation Sodium Chloride () 5 - 15 ml IV UD PRN PRN Reason: SALINE FLUSH Tolterodine Tartrate (Detrol La) 4 mg PO DAILY [facility] Warfarin Sodium (Coumadin (Pbkc)) 2.5 mg PO QODAY@1700 [facility] Warfarin Sodium (Coumadin (Pbkc)) 3 mg PO QODAY@1700 [facility] Medical Necessity - Tobacco Use Smoking Status: Current some day smoker Tobacco Use: Pipe Assessment/Plan All Active Problems Atrial fibrillation (Acute) 78-year-old with past medical history of chronic atrial fibrillation, heart failure preserved EF, hypertension, type II DM, who comes in with complaints of left shoulder pain ongoing for years, limiting his activities. Patient is status post left shoulder replacement. 1. POD #0 status post left total shoulder arthroplasty for left shoulder cuff tear arthroplasty, pain is controlled, further management per orthopedic surgery. 2. Chronic atrial fibrillation, rate controlled, metoprolol, Coumadin, INR is subtherapeutic now at 1.20 3. Hypertension, controlled, on amlodipine, HCTZ, metoprolol, will continue to monitor. 4. Type II DM, HgBA1c is 7.0, on metformin, will continue with accucheks and ISS 5. Gout, no signs of acute gouty attack, on allopurinol 6. DVT PPx- on coumadin, SCDS and early ambulation; INR is subtherapeutic. Code Visit Inpatient E&M: 14899 Subs Hosp L2
[2018-08-03] MEDS: hydroCHLOROthiazide 12.5mg 12.5 MG PO (12:41)
[2018-08-03] MEDS: Famotidine 20 MG Tablet PO (12:41)
[2018-08-03] MEDS: Tolterodine Tartrate 4 MG CAP.SA PO (12:42)
[2018-08-03] MEDS: Allopurinol 300 MG Tablet PO (12:42)
[2018-08-03] MEDS: Cefazolin 1 GM/50 ML BAG IV ×2 (15:00→22:57)
[2018-08-03 16:35] LABS: Bedside Glucose 169 mg/dL (70-110)
[2018-08-03 22:36] LABS: Bedside Glucose 118 mg/dL (70-110)
[2018-08-03] MEDS: MELATONIN 10 MG TABLET 5 MG PO (23:15)
[2018-08-04 02:35] VITALS: BP 126/70; PULSE 80; RESP 18; TEMP 36.8; O2SAT 95
[2018-08-04] MEDS: 0.9% NaCl Peripheral Flush Adult/Peds IV (03:03)
[2018-08-04] MEDS: Ketorolac 15 MG/ML Vial IV (03:03)
[2018-08-04 06:35] VITALS: BP 146/87; PULSE 99; RESP 20; TEMP 36.7; O2SAT 96
--- NOTE | 2018-08-04 06:40 | NURSING ---
SCOURING TRAIN OPERATOR CHIEF notified this nurse that pt was found sitting on the floor. Pt stated that I was leaning over to get my cane and slid out of the chair.. States that he did not hit his head or his shoulder. No injuries noted. Neuro checks wnl. BP 146/87, HR 99, R 20, 96% RA. Hand tank farm attendant equal. Denies pain, numbness/tingling to lt shoulder/hand. Call light was in reach, pt denied using it. Dr Faulkner notified. made aware.
[2018-08-04] MEDS: Acetaminophen 500 MG Tablet 1000 MG PO ×3 (06:47→22:18)
[2018-08-04 06:56] LABS: Bedside Glucose 140 mg/dL (70-110)
[2018-08-04 07:20] VITALS: BP 125/70; PULSE 80; RESP 18; TEMP 36.8; O2SAT 95
--- NOTE | 2018-08-04 07:41 | PN.ORTHO_ITS ---
Subjective: Patient is doing well this morning. He did have a reported fall overnight when he was trying to get out of his bed sounds like he slipped over the side of the bed when leaning forward. He reported some pulling in his shoulder during the time of the incident while they were helping him up however he reports no significant change in pain in his shoulder right now. X-rays been ordered we will follow-up on those. He has no chest pain or shortness of breath. He still eager to be discharged home today. Objective: Postoperative left shoulder radiographs show stable well-placed well reduced left reverse total shoulder replacement. - Physical Exam General: Alert, Oriented x3, Cooperative Extremities: - - Left upper extremity: Dressing has small area of spotting roughly the size of a quarter. Otherwise intact. Sensations intact light touch axillary/R/M/U. Motor is intact R/M/2 distally. Palpable radial pulse. Vital Signs Temp Pulse Resp BP Pulse Ox 98.2 F 80 18 126/70 H 95 08/04/18 02:35 08/04/18 02:35 08/04/18 02:35 08/04/18 02:35 08/04/18 02:35 Oxygen Flow Rate (L/min) 2 Oxygen Delivery Method Room Air Weight: 256 lb 6.362 oz Body Mass Index (BMI) 37.8 Finger Stick Blood Glucose 196 Intake and Output for Last 24 Hours 08/02/18 08/03/18 08/04/18 23:59 23:59 23:59 Intake Total 2189 / 2189 1396 / 1396 Output Total 200 / 200 Balance 2189 / 2189 1196 / 1196 POC Glucose 08/04/18 08/03/18 08/03/18 06:44 22:12 16:25 POC Glucose 140 H 118 H 169 H 08/03/18 08/03/18 11:54 10:09 POC Glucose 180 H 196 H Medical Necessity - Tobacco Use Smoking Status: Current some day smoker Tobacco Use: Pipe Assessment/Plan All Active Problems Atrial fibrillation (Acute) Postop day 1 left reverse total shoulder replacement, with follow overnight 1. Fall: We will have physical therapy assess for ambulation and transfers if he does well we will plan for discharge today 2. DVT prophylaxis: Aspirin daily 3. Therapy: PT to assess ambulation and transfers. OT for ADLs 4. Pain control: Pain controlled under current regimen 5. Disposition: Patient is doing well aside from the fall. Will obtain follow- up x-rays and have physical therapy assist in ambulation and transfers. If he does well we will plan on discharge today. [facility] Office:
--- NOTE | 2018-08-04 07:42 | PN_ITS ---
Subjective: Patient was seen and examined. No acute events. Denies any pain. Eyes any chest pain or dizziness or palpitation. In the left arm sling immobilizer. Objective: Physical exam: General: Alert, Oriented x3, Cooperative, No apparent distress, - - obese HEENT: Atraumatic, PERRLA, EOMI, Normocephalic Oral: Moist Mucosa Neck: Supple, No JVD, Negative Carotid Bruits Lungs: Clear to auscultation, Normal air movement Cardiovascular: Regular rate, No murmurs Abdomen: Bowel Sounds Present, Soft, Non Tender, Non-Distended, No Hepato- splenomegaly Extremities: No edema, Edema - Left shoulder in a brace, dressing and cooling mat in place. Skin: No rashes, No breakdown Musculoskeletal: No Tenderness to Palpation of Joints or Extremities Lymphatic: No Cervical, Supraclavicular, or Inguinal Adenopathy Neurological: Cranial nerves II-XII grossly intact, Neuro grossly intact Psych/Mental Status: Normal Affect, Appropriate Vitals/I&O's: Vital Signs Temp Pulse Resp BP Pulse Ox 98.2 F 80 18 126/70 H 95 08/04/18 02:35 08/04/18 02:35 08/04/18 02:35 08/04/18 02:35 08/04/18 02:35 Oxygen Flow Rate (L/min) 2 Oxygen Delivery Method Room Air Weight: 116.3 kg Body Mass Index (BMI) 37.8 Finger Stick Blood Glucose 196 Intake and Output for Last 24 Hours 08/02/18 08/03/18 08/04/18 23:59 23:59 23:59 Intake Total 2189 / 2189 1396 / 1396 Output Total 200 / 200 Balance 2189 / 2189 1196 / 1196 Laboratory Results 08/03/18 10:09: POC Glucose 196 H 08/03/18 11:54: POC Glucose 180 H 08/03/18 16:25: POC Glucose 169 H 08/03/18 22:12: POC Glucose 118 H 08/04/18 06:44: POC Glucose 140 H Current Medications Acetaminophen (Tylenol) 1,000 mg PO Q8 DENIZ Last Admin: 08/04/18 06:47 Dose: 1,000 mg Albuterol Sulfate (Ventolin Aerosols) 2.5 mg INHALATION Q4H PRN PRN PRN Reason: SOB &/OR WHEEZING Allopurinol (Zyloprim) 300 mg PO DAILY@0800 [facility] Last Admin: 08/03/18 12:42 Dose: 300 mg Amlodipine Besylate (Norvasc) 5 mg PO DAILY [facility] Famotidine (Pepcid) 20 mg PO DAILY [facility] Last Admin: 08/03/18 12:41 Dose: 20 mg Furosemide (Lasix) 20 mg PO MOWEFR [facility] Last Admin: 08/03/18 12:45 Dose: Not Given Hydrochlorothiazide () 12.5 mg PO DAILY [facility] Last Admin: 08/03/18 12:41 Dose: 12.5 mg Insulin Human Lispro (Humalog Kwikpen (Bkc)) 0 unit SC [facility]; Protocol Last Admin: 08/04/18 06:46 Dose: Not Given Ketorolac Tromethamine (Toradol) 15 mg IV Q6H PRN PRN PRN Reason: PAIN Last Admin: 08/04/18 03:03 Dose: 15 mg Melatonin (Melatonin) 5 mg PO QHS PRN PRN Reason: SLEEP Last Admin: 08/03/18 23:15 Dose: 5 mg Metformin [facility] ([facility]) [facility] Last Admin: 08/03/18 16:26 Dose: 500 mg Metoprolol Succinate (Toprol Xl (Beta Zeina)) 50 mg PO DAILY [facility] Morphine Sulfate () 2 - 4 mg IV Q2H PRN PRN PRN Reason: Severe pain (6-10) Morphine Sulfate () 2 - 4 mg IV Q2H PRN PRN PRN Reason: Severe pain (6-10) Nutritional Formula (Lactose Free) (Glucerna Shake) [facility] Last Admin: 08/03/18 16:27 Dose: Not Given Ondansetron HCl (Zofran) 4 mg IV Q6H PRN PRN PRN Reason: Nausea Oxycodone HCl (Oxyir) 5 - 10 mg PO Q4H PRN PRN PRN Reason: PAIN Potassium Chloride (K-Dur) [facility] Last Admin: 08/03/18 10:49 Dose: Not Given Promethazine HCl (Phenergan) 12.5 mg IV Q6H PRN PRN PRN Reason: NAUSEA/VOMITING Scopolamine HBr (Transderm-Scop) 1 patch TD Q3D [facility] Last Admin: 08/03/18 09:45 Dose: 1 patch Senna/Docusate Sodium (Senokot-S, Meseret-Colace) 2 tablet PO BID PRN PRN PRN Reason: Constipation Sodium Chloride () 5 - 15 ml IV UD PRN PRN Reason: SALINE FLUSH Last Admin: 08/04/18 03:03 Dose: 10 ml Tolterodine Tartrate (Detrol La) 4 mg PO DAILY [facility] Last Admin: 08/03/18 12:42 Dose: 4 mg Warfarin Sodium (Coumadin (Pbkc)) 2.5 mg PO QODAY@1700 [facility] Warfarin Sodium (Coumadin (Pbkc)) 3 mg PO QODAY@1700 [facility] Medical Necessity - Tobacco Use Smoking Status: Current some day smoker Tobacco Use: Pipe Assessment/Plan All Active Problems Atrial fibrillation (Acute) 78-year-old with past medical history of chronic atrial fibrillation, heart failure preserved EF, hypertension, type II DM, who comes in with complaints of left shoulder pain ongoing for years, limiting his activities. Patient is status post left shoulder replacement. 1. POD #1 status post left total shoulder arthroplasty for left shoulder cuff tear arthroplasty, pain is controlled, in left arm sling immobilizer, PT and OT consulted, further management per orthopedic surgery. 2. Chronic atrial fibrillation, rate controlled, metoprolol and Coumadin, INR is subtherapeutic now at 1.30 3. Hypertension, controlled, on amlodipine, HCTZ, metoprolol, will continue to monitor. 4. Type II DM, HgBA1c is 7.0, blood sugars are fairly controlled, on metformin, will continue with accucheks and ISS 5. Gout, no signs of acute gouty attack, on allopurinol 6. DVT PPx- on coumadin, SCDS and early ambulation; INR is subtherapeutic. Code Visit Inpatient E&M: 84691 Subs Hosp L2
[2018-08-04 08:23] LABS: International Normalized Ratio 1.3; Prothrombin Time (Protime)PT. 15.8 SECONDS (11.7-14.9)
--- NOTE | 2018-08-04 10:33 | RAD_ITS ---
STUDY: X-RAY - LEFT SHOULDER REASON FOR EXAM: Male, 78 years old. Recent shoulder replacement. Pain following fall. TECHNIQUE: 2 view(s) of the shoulder. COMPARISON: Comparison is made with prior study dated August 03, 2018. FINDINGS: The patient is status post left shoulder replacement of the reverse type. There is good alignment. Postoperative soft tissue swelling. Normal visualized pulmonary apex. RAD/Shoulder min 2 Views IMPRESSION: Status post left shoulder replacement. There has been no change. Electronically Signed: Dong Multani MD at 10:46 EST Tel [phone], Service support ,
[2018-08-04] MEDS: Famotidine 20 MG Tablet PO (10:41)
[2018-08-04] MEDS: amLODIPine 5 MG Tablet PO (10:42)
[2018-08-04] MEDS: Allopurinol 300 MG Tablet PO (10:42)
[2018-08-04] MEDS: Tolterodine Tartrate 4 MG CAP.SA PO (10:42)
[2018-08-04] MEDS: hydroCHLOROthiazide 12.5mg 12.5 MG PO (10:42)
[2018-08-04 10:43] VITALS: PULSE 82
[2018-08-04] MEDS: Metoprolol(XL)Succ 50 MG Tablet PO (10:43)
[2018-08-04] MEDS: Glucerna Shake 120 ML LIQUID PO ×2 (10:46→16:13)
--- NOTE | 2018-08-04 10:47 | DCINST_ITS ---
Discharge Diet: 1800 Calorie Control Diet Discharge Activity: May Not Drive May shower in (days): 1 - Turned dressing away from water Ice area for (Minutes): 20 - Ice area for 20 minutes each hour while awake Weight Bearing Status: Weight bearing as tolerated Keep extremity elevated above heart level: Operative Extremity Call your doctor if your incision/area has: Continuous Slow Oozing, Sudden Increased Bleeding, Increased Pain/ Swelling, Increased Redness, Foul Smelling Discharge Call your doctor if you observe: Fever of 101 or Higher, Coldness, Increased Pain, Numbness or Tingling, Change in Color Remove Dressing in (days):: 4 - Okay to remove on August 08, 2018 Additional Instructions: Follow [facility] postop instructions Allergies/Adverse Reactions: Allergies No Known Allergies Allergy (Verified 07/22/18 15:08) Medications to take at Discharge Allopurinol 300 mg PO DAILY 07/23/15 Metformin HCl [Glucophage] 500 mg PO BIDCM 07/23/15 Albuterol Inhaler [Ventolin Hfa] 2 puff INHALATION Q4H PRN PRN 03/21/18 Amlodipine [Norvasc] 5 mg PO DAILY 03/21/18 Furosemide [Lasix] 20 mg PO MOWEFR 03/21/18 Metoprolol Succinate [Toprol Xl] 50 mg PO DAILY 03/21/18 Oxybutynin Chloride [Ditropan Xl] 10 mg PO BID 03/21/18 Warfarin [Coumadin] 2.5 mg PO QODAY 03/21/18 Warfarin [Coumadin] 3 mg PO QODAY 03/21/18 hydroCHLOROthiazide [Hydrochlorothiazide] 12.5 mg PO DAILY 03/21/18 Magnesium 250 mg PO DAILY 07/22/18 Potassium Chloride [Klor-Con] 20 meq PO DAILY 07/22/18 Vitamin B Complex 1 each PO DAILY 07/22/18 Acetaminophen [Tylenol Extra Strength] 1,000 mg PO Q4H PRN PRN #100 tab 08/04/18 Oxycodone [Oxyir] 5 - 10 mg PO Q4H PRN PRN 4 Days #30 tab 08/04/18 Senna/Docusate Sodium [Senokot-S] 2 tab PO BID PRN PRN #20 tab 08/04/18 The following prescriptions were given: Acetaminophen [Tylenol Extra Strength] 1,000 mg PO Q4H PRN PRN #100 tab PRN Reason: Pain Oxycodone [Oxyir] 5 - 10 mg PO Q4H PRN PRN 4 Days #30 tab PRN Reason: Pain Senna/Docusate Sodium [Senokot-S] 2 tab PO BID PRN PRN #20 tab PRN Reason: Constipation Primary Care Physician: Man Cha MD [Primary Care Provider] - Test Results: Test results from this visit will be discussed in further detail at your follow- up appointment, if applicable. Please Follow Up With: [facility] When: 08/18/18 @ 3:30 pm with [place] Please Follow Up With: Dennis Page PA-C When: 08/18/18 @ 2:15 pm
--- NOTE | 2018-08-04 11:45 | CASEMGMT ---
ANTONIETA SCHWARTZ Face to Face with patient for initial transition planning/care coordination assessment. ANTONIETA SCHWARTZ introduced self and role at [facility]. Patient sitting in chair, alert and oriented, at bedside. Patient willing to participate in assessment and is able to answer all questions appropriately. Care providers, pharmacy, and demographics verified. Patient wishes to discharge home, discussed therapy's recommendations for placement at discharge. Patient and agreeable to placement with first choice TCU. Patient states he has no further needs or concerns at this time. FRANKLYN Levin updated with request for placement. Disposition Plan: Patient to discharge to TCU pending acceptance. Halina GUERRIER, RN, CM
[2018-08-04 11:51] LABS: Bedside Glucose 166 mg/dL (70-110)
[2018-08-04 13:20] VITALS: BP 139/77; PULSE 88; RESP 16; TEMP 36.9; O2SAT 99
--- NOTE | 2018-08-04 13:30 | CASEMGMT ---
Received update from that patient was accepted to TCU with planned discharge for Monday 08/06. ANTONIETA CM updated patient and .
[2018-08-04 16:21] LABS: Bedside Glucose 155 mg/dL (70-110)
--- NOTE | 2018-08-04 16:32 | CASEMGMT ---
Social Work Note SW received referral from RN EFREN that pt would like to go to TCU at discharge. SW placed a call to Beth in TCU. Per Beth she is able to accept pt. Plan: TCU Wednesday Halina Levin DATA ANALYST ETL DEVELOPER, CLAM BED WORKER
[2018-08-04 20:01] VITALS: BP 125/73; PULSE 100; RESP 18; TEMP 37.2; O2SAT 96
[2018-08-04 22:25] LABS: Bedside Glucose 133 mg/dL (70-110)
[2018-08-04] MEDS: MELATONIN 10 MG TABLET 5 MG PO (22:54)
[2018-08-05 02:12] VITALS: BP 157/107; PULSE 88; RESP 18; TEMP 37.1; O2SAT 96
[2018-08-05] MEDS: Acetaminophen 500 MG Tablet 1000 MG PO ×3 (06:45→22:08)
[2018-08-05 07:10] LABS: Bedside Glucose 117 mg/dL (70-110)
--- NOTE | 2018-08-05 07:32 | PN.ORTHO_ITS ---
Subjective: The patient was sitting in bed upon examination. Patient denies any chest pain, shortness of breath, dizziness, lightheadedness, nausea or vomiting, or calf pain. Pain is controlled on medications. No adverse overnight events. Plan was for possible discharge home yesterday. However patient did sustain a fall and after having therapy assessment patient is a fall risk. He has very unsteady when he is on his feet. Nursing states it took 2-3 people for patient to use the restroom due to his unsteadiness. At this time case management has b bethany on board and patient will be placed in transitional care unit. They are able to accept him tomorrow. Objective: Dressing is with minimal drainage over the distal one third which has been stable from yesterday Ultra-sling fitting appropriately Sensation intact to axillary, radial, median, and ulnar distribution Motor intact to AIN, PIN, and ulnar nerve - Physical Exam General: Alert, Oriented x3, Cooperative, No apparent distress Vital Signs Temp Pulse Resp BP Pulse Ox 98.7 F 88 18 157/107 H 96 08/05/18 02:12 08/05/18 02:12 08/05/18 02:12 08/05/18 02:12 08/05/18 02:12 Oxygen Flow Rate (L/min) 2 Oxygen Delivery Method Room Air Weight: 116.3 kg Body Mass Index (BMI) 37.8 Finger Stick Blood Glucose 196 Intake and Output for Last 24 Hours 08/03/18 08/04/18 08/05/18 23:59 23:59 23:59 Intake Total 2189 / 2189 2136 / 2136 200 / 200 Output Total 775 / 775 1450 / 1450 Balance 2189 / 2189 1361 / 1361 -1250 / -1250 Laboratory Tests Past 24 Hrs 08/04/18 07:52 PT 15.8 H INR 1.3 POC Glucose 08/05/18 08/04/18 08/04/18 06:41 22:17 16:12 POC Glucose 117 H 133 H 155 H 08/04/18 11:48 POC Glucose 166 H Medical Necessity - Tobacco Use Smoking Status: Current some day smoker Tobacco Use: Pipe Assessment/Plan All Active Problems Atrial fibrillation (Acute) 1. S/P left reverse total shoulder arthroplasty POD #2 2. Continue Pain Medications: Tylenol and OxyIR 3. DVT Prophylaxis: Patient has been placed back on his warfarin 4. PT/OT: No formal physical therapy until 2 weeks postoperatively. Physical therapy can work on pendulum exercises for the left shoulder. Also work on elbow, wrist, hand range of motion. 5. Continue postoperative medical management per medicine 6. Encouraged Incentive Spirometry 7. Disposition: Due to patient's fall risk and unsteadiness, patient will require transfer to half-way facility. Patient will be going to the transitional care unit at [facility] tomorrow August 06, 2018. Patient's prescriptions are attached to the chart.
[2018-08-05 08:00] VITALS: BP 133/90; PULSE 88; RESP 20; TEMP 36.8; O2SAT 94
--- NOTE | 2018-08-05 08:57 | PN_ITS ---
Subjective: Patient was seen and examined. He feels better. Denies any dizziness or shortness of breath. Waiting on insurance precertification for discharge to TCU Objective: Physical exam: General: Alert, Oriented x3, Cooperative, No apparent distress, - - obese HEENT: Atraumatic, PERRLA, EOMI, Normocephalic Oral: Moist Mucosa Neck: Supple, No JVD, Negative Carotid Bruits Lungs: Clear to auscultation, Normal air movement Cardiovascular: Regular rate, No murmurs Abdomen: Bowel Sounds Present, Soft, Non Tender, Non-Distended, No Hepato- splenomegaly Extremities: No edema, Edema - Left shoulder in a brace, dressing and cooling mat in place. Skin: No rashes, No breakdown Musculoskeletal: No Tenderness to Palpation of Joints or Extremities Lymphatic: No Cervical, Supraclavicular, or Inguinal Adenopathy Neurological: Cranial nerves II-XII grossly intact, Neuro grossly intact Psych/Mental Status: Normal Affect, Appropriate Vitals/I&O's: Vital Signs Temp Pulse Resp BP Pulse Ox 98.2 F 88 20 H 133/90 H 94 08/05/18 08:00 08/05/18 08:00 08/05/18 08:00 08/05/18 08:00 08/05/18 08:00 Oxygen Flow Rate (L/min) 2 Oxygen Delivery Method Room Air Weight: 116.3 kg Body Mass Index (BMI) 37.8 Finger Stick Blood Glucose 196 Intake and Output for Last 24 Hours 08/03/18 08/04/18 08/05/18 23:59 23:59 23:59 Intake Total 2189 / 2189 2136 / 2136 200 / 200 Output Total 775 / 775 1450 / 1450 Balance 2189 / 2189 1361 / 1361 -1250 / -1250 Laboratory Results 08/04/18 11:48: POC Glucose 166 H 08/04/18 16:12: POC Glucose 155 H 08/04/18 22:17: POC Glucose 133 H 08/05/18 06:41: POC Glucose 117 H Current Medications Acetaminophen (Tylenol) 1,000 mg PO Q8 DENIZ Last Admin: 08/05/18 06:45 Dose: 1,000 mg Albuterol Sulfate (Ventolin Aerosols) 2.5 mg INHALATION Q4H PRN PRN PRN Reason: SOB &/OR WHEEZING Allopurinol (Zyloprim) 300 mg PO DAILY@0800 [facility] Last Admin: 08/04/18 10:42 Dose: 300 mg Amlodipine Besylate (Norvasc) 5 mg PO DAILY [facility] Last Admin: 08/04/18 10:42 Dose: 5 mg Famotidine (Pepcid) 20 mg PO DAILY [facility] Last Admin: 08/04/18 10:41 Dose: 20 mg Furosemide (Lasix) 20 mg PO MOWEFR [facility] Last Admin: 08/03/18 12:45 Dose: Not Given Hydrochlorothiazide () 12.5 mg PO DAILY [facility] Last Admin: 08/04/18 10:42 Dose: 12.5 mg Insulin Human Lispro (Humalog Kwikpen (Bkc)) 0 unit SC [facility]; Protocol Last Admin: 08/05/18 06:44 Dose: Not Given Ketorolac Tromethamine (Toradol) 15 mg IV Q6H PRN PRN PRN Reason: PAIN Last Admin: 08/04/18 03:03 Dose: 15 mg Melatonin (Melatonin) 5 mg PO QHS PRN PRN Reason: SLEEP Last Admin: 08/04/18 22:54 Dose: 5 mg [facility] ([facility]) [facility] Last Admin: 08/04/18 16:12 Dose: 500 mg Metoprolol Succinate (Toprol Xl (Beta Zeina)) 50 mg PO DAILY [facility] Last Admin: 08/04/18 10:43 Dose: 50 mg Morphine Sulfate () 2 - 4 mg IV Q2H PRN PRN PRN Reason: Severe pain (6-10) Morphine Sulfate () 2 - 4 mg IV Q2H PRN PRN PRN Reason: Severe pain (6-10) Nutritional Formula (Lactose Free) (Glucerna Shake) [facility] Last Admin: 08/04/18 16:13 Dose: 120 ml Ondansetron HCl (Zofran) 4 mg IV Q6H PRN PRN PRN Reason: Nausea Oxycodone HCl (Oxyir) 5 - 10 mg PO Q4H PRN PRN PRN Reason: PAIN Potassium Chloride (K-Dur) 20 meq [facility] Last Admin: 08/04/18 10:42 Dose: 20 meq Promethazine HCl (Phenergan) 12.5 mg IV Q6H PRN PRN PRN Reason: NAUSEA/VOMITING Scopolamine HBr (Transderm-Scop) 1 patch TD Q3D [facility] Last Admin: 08/03/18 09:45 Dose: 1 patch Senna/Docusate Sodium (Senokot-S, Meseret-Colace) 2 tablet PO BID PRN PRN PRN Reason: Constipation Sodium Chloride () 5 - 15 ml IV UD PRN PRN Reason: SALINE FLUSH Last Admin: 08/04/18 03:03 Dose: 10 ml Tolterodine Tartrate (Detrol La) 4 mg PO DAILY [facility] Last Admin: 08/04/18 10:42 Dose: 4 mg Warfarin Sodium (Coumadin (Pbkc)) 2.5 mg PO QODAY@1700 [facility] Last Admin: 08/04/18 16:13 Dose: 2.5 mg Warfarin Sodium (Coumadin (Pbkc)) 3 mg PO QODAY@1700 [facility] Medical Necessity - Tobacco Use Smoking Status: Current some day smoker Tobacco Use: Pipe Assessment/Plan All Active Problems Atrial fibrillation (Acute) 78-year-old with past medical history of chronic atrial fibrillation, heart failure preserved EF, hypertension, type II DM, who comes in with complaints of left shoulder pain ongoing for years, limiting his activities. Patient is status post left shoulder replacement. 1. POD #2 status post left total shoulder arthroplasty for left shoulder cuff tear arthroplasty, pain is controlled, in left arm sling immobilizer, PT and OT consulted, further management per orthopedic surgery. 2. Chronic atrial fibrillation, rate controlled, metoprolol and Coumadin, INR is subtherapeutic 3. Hypertension, controlled, on amlodipine, HCTZ, metoprolol, will continue to monitor. 4. Type II DM, HgBA1c is 7.0, blood sugars are fairly controlled, on metformin, will continue with accucheks and ISS 5. Gout, no signs of acute gouty attack, on allopurinol 6. DVT PPx- on coumadin, SCDS and early ambulation; INR is subtherapeutic. Code Visit Inpatient E&M: 64048 Subs Hosp L2
[2018-08-05] MEDS: Glucerna Shake 120 ML LIQUID PO ×2 (09:34→18:05)
[2018-08-05] MEDS: Allopurinol 300 MG Tablet PO (09:35)
[2018-08-05 09:36] VITALS: BP 133/90; PULSE 88
[2018-08-05] MEDS: Metoprolol(XL)Succ 50 MG Tablet PO (09:36)
[2018-08-05] MEDS: Famotidine 20 MG Tablet PO (09:36)
[2018-08-05] MEDS: hydroCHLOROthiazide 12.5mg 12.5 MG PO (09:36)
[2018-08-05] MEDS: amLODIPine 5 MG Tablet PO (09:36)
[2018-08-05] MEDS: Tolterodine Tartrate 4 MG CAP.SA PO (09:37)
--- NOTE | 2018-08-05 10:16 | CASEMGMT ---
Social Work RN notified SW that pt presenting questions regarding insurance coverage in TCU. SW met with pt, and two adult children in room. SW explained Medicare coverage in SNF. SW also explained services and differences provided in SNF, home health services and outpatient therapy. All questions answered and pt and family are agreeable to short stay in TCU. Pt aware that d/c is planned for Wednesday08/06/18. Plan: TCU, Wednesday JASPREET Doherty
[2018-08-05 11:25] LABS: Bedside Glucose 149 mg/dL (70-110)
[2018-08-05 13:39] VITALS: BP 125/78; PULSE 91; RESP 20; TEMP 36.6; O2SAT 94
[2018-08-05 18:11] LABS: Bedside Glucose 137 mg/dL (70-110)
[2018-08-05 20:35] VITALS: BP 136/87; PULSE 91; RESP 20; TEMP 36.8; O2SAT 97
[2018-08-05] MEDS: Insulin Lispro 100 UNIT/ML INSULN.PEN SC (22:07)
[2018-08-05 22:56] LABS: Bedside Glucose 177 mg/dL (70-110)
[2018-08-06 03:32] VITALS: BP 143/86; PULSE 98; RESP 20; TEMP 36.9; O2SAT 95
[2018-08-06] MEDS: Acetaminophen 500 MG Tablet 1000 MG PO (06:00)
[2018-08-06] MEDS: Famotidine 20 MG Tablet PO (06:06)
[2018-08-06 07:05] LABS: Bedside Glucose 148 mg/dL (70-110)
--- NOTE | 2018-08-06 07:09 | PN.ORTHO_ITS ---
Subjective: Patient doing well this morning. Less confusion over the last 24 hours. Medically stable. Patient is received precertification for TCU today. Objective: Postoperative x-rays were reviewed showing stable well-placed left reverse total shoulder replacement - Physical Exam General: Alert, Oriented x3, Cooperative Extremities: - - Left upper extremity: Dressing clean dry and intact with stable quarter size saturation. Sensations intact light touch axillary/R/M/U. Motor is intact axillary/R/M/U. Palpable pulse readily. Vital Signs Temp Pulse Resp BP Pulse Ox 98.4 F 98 20 H 143/86 H 95 08/06/18 03:32 08/06/18 03:32 08/06/18 03:32 08/06/18 03:32 08/06/18 03:32 Oxygen Flow Rate (L/min) 2 Oxygen Delivery Method Room Air Weight: 256 lb 6.362 oz Body Mass Index (BMI) 37.8 Finger Stick Blood Glucose 196 Intake and Output for Last 24 Hours 08/04/18 08/05/18 08/06/18 23:59 23:59 23:59 Intake Total 2136 / 2136 1120 / 1120 700 / 700 Output Total 775 / 775 2660 / 2660 450 / 450 Balance 1361 / 1361 -1540 / -1540 250 / 250 POC Glucose 08/06/18 08/05/18 08/05/18 06:57 22:03 18:01 POC Glucose 148 H 177 H 137 H 08/05/18 08/05/18 11:18 06:41 POC Glucose 149 H 117 H Medical Necessity - Tobacco Use Smoking Status: Current some day smoker Tobacco Use: Pipe Assessment/Plan All Active Problems Atrial fibrillation (Acute) Postop day 3 left reverse total shoulder replacement, with follow overnight 1. Fall: Physical therapy was able to assess patient is having difficulty with ambulation and transfers. Recommended care home 2. DVT prophylaxis: Aspirin daily 3. Therapy: PT ambulation and transfers. OT for ADLs 4. Pain control: Pain controlled under current regimen 5. Disposition: Patient doing well. Precertification for TCU obtained. Patient will be discharged today. [facility] Office:
[2018-08-06 07:50] LABS: Absolute Lymphocyte Count 0.93 X10^3/ul (0.83-4.51); Absolute Neutrophil Count 8.2 X10^3/uL (2.0-7.7); Basophil# 0.01 X10^3/uL; Basophil% 0.1 % (0-1); Eosinophil# 0.09 X10^3/uL; Eosinophils% 0.9 % (0-5); Hematocrit 32.4 % (40-54); Hemoglobin 10.9 g/dl (13.0-16.5); Lymphocyte # 0.93 X10^3/ul (4.0); Lymphocyte % 9.2 % (19-41); Mean Corp Hgb Conc 33.6 g/gl (32-36); Mean Corpuscular Hgb 31.3 pg (27.0-32.0); Mean Corpuscular Volume 93.1 fL (80-94); Mean Platelet Vol. 9.3 fl (6.2-12.0); Monocyte# 0.85 X10^3/uL; Monocyte% 8.4 % (0-10); Neutrophil # 8.19 X10^3/uL (2.7-7.7); Neutrophil % 81.2 % (47-70); Platelet Count 207 K/mm3 (150-450); RBC Distribution Width CV 13.3 % (11.6-14.6); RBC Distribution Width SD 44.9 fl (35.1-43.9); Red Blood Count 3.48 M/mm3 (4.6-6.2); White Blood Count 10.1 K/mm3 (4.4-11.0)
[2018-08-06 07:55] LABS: POSITIVE COUNT NO; POSITIVE DIFFERENTIAL NO; POSITIVE MORPHOLOGY NO
[2018-08-06 07:57] LABS: International Normalized Ratio 1.3; Prothrombin Time (Protime)PT. 15.9 SECONDS (11.7-14.9)
[2018-08-06 08:14] LABS: Anion Gap 10 (5-15); BUN 20 mg/dL (7-18); BUN/Creat Ratio 17.9 RATIO (10-20); Calcium,Total 8.2 mg/dL (8.5-10.1); Chloride 103 mmol/L (98-107); Creatinine, Serum 1.12 mg/dL (0.70-1.30); EST Glomerular Filtration Rate 67 mL/min (>60); Est Glom Filt Rate - Afr Amer 81 mL/min (>60); Glucose 140 mg/dL (74-106); Potassium 3.2 mmol/L (3.5-5.1); Sodium Level 140 mmol/L (136-145)
[2018-08-06] MEDS: Glucerna Shake 120 ML LIQUID PO (08:15)
[2018-08-06] MEDS: amLODIPine 5 MG Tablet PO (08:20)
[2018-08-06 08:25] VITALS: PULSE 95
[2018-08-06] MEDS: Metoprolol(XL)Succ 50 MG Tablet PO (08:25)
[2018-08-06] MEDS: Allopurinol 300 MG Tablet PO (08:25)
[2018-08-06] MEDS: hydroCHLOROthiazide 12.5mg 12.5 MG PO (08:26)
[2018-08-06] MEDS: Tolterodine Tartrate 4 MG CAP.SA PO (08:26)
[2018-08-06 08:30] VITALS: BP 111/76; PULSE 97; RESP 20; TEMP 36.8; O2SAT 94
--- NOTE | 2018-08-06 08:40 | NURSING ---
Sitting up in chair eating breakfast. call light in reach. Personal Alarm on.
--- NOTE | 2018-08-06 09:27 | PN_ITS ---
Subjective: Patient was seen and examined. Complains of feeling slightly SOB. Denies chest pain, dizziness, fever or chills. Not on oxygen. Objective: Physical exam: General: Alert, Oriented x3, Cooperative, No apparent distress, - - obese HEENT: Atraumatic, PERRLA, EOMI, Normocephalic Oral: Moist Mucosa Neck: Supple, No JVD, Negative Carotid Bruits Lungs: Clear to auscultation, Normal air movement Cardiovascular: Regular rate, No murmurs Abdomen: Bowel Sounds Present, Soft, Non Tender, Non-Distended, No Hepato- splenomegaly Extremities: No edema, Edema - Left shoulder in a brace/sling, dressing and cooling mat in place. Skin: No rashes, No breakdown Musculoskeletal: No Tenderness to Palpation of Joints or Extremities Lymphatic: No Cervical, Supraclavicular, or Inguinal Adenopathy Neurological: Cranial nerves II-XII grossly intact, Neuro grossly intact Psych/Mental Status: Normal Affect, Appropriate Vitals/I&O's: Vital Signs Temp Pulse Resp BP Pulse Ox 98.2 F 97 20 H 111/76 94 08/06/18 08:30 08/06/18 08:30 08/06/18 08:30 08/06/18 08:30 08/06/18 08:30 Oxygen Flow Rate (L/min) 2 Oxygen Delivery Method Room Air Weight: 116.3 kg Body Mass Index (BMI) 37.8 Finger Stick Blood Glucose 196 Intake and Output for Last 24 Hours 08/04/18 08/05/18 08/06/18 23:59 23:59 23:59 Intake Total 2136 / 2136 1120 / 1120 700 / 700 Output Total 775 / 775 2660 / 2660 450 / 450 Balance 1361 / 1361 -1540 / -1540 250 / 250 Laboratory Results 08/05/18 11:18: POC Glucose 149 H 08/05/18 18:01: POC Glucose 137 H 08/05/18 22:03: POC Glucose 177 H 08/06/18 06:57: POC Glucose 148 H 08/06/18 07:30: WBC 10.1, RBC 3.48 L, Hgb 10.9 L, Hct 32.4 L, MCV 93.1, MCH 31.3, MCHC 33.6, RDW 13.3, RDW Differential 44.9 H, Plt Count 207, MPV 9.3, Immature Gran % (Auto) 0.200, Neut % (Auto) 81.2 H, Lymph % (Auto) 9.2 L, [place] % (Auto) 8.4, Eos % (Auto) 0.9, Baso % (Auto) 0.1, Absolute Neuts (auto) 8.2 H, A bsolute Lymphs (auto) 0.93, Total Counted Not Reportable 08/06/18 07:30: PT 15.9 H, INR 1.3 08/06/18 07:30: Sodium 140, Potassium 3.2 L, Chloride 103, Carbon Dioxide 27.0, Anion Gap 10, BUN 20 H, Creatinine 1.12, Estim Creat Clear Calc 52.60, Est GFR (MDRD) Af Amer 81, Est GFR (MDRD) Non-Af 67, BUN/Creatinine Ratio 17.9, Glucose 140 H, Calcium 8.2 L Current Medications Acetaminophen (Tylenol) 1,000 mg PO Q8 [facility] Last Admin: 08/06/18 06:00 Dose: 1,000 mg Albuterol Sulfate (Ventolin Aerosols) 2.5 mg INHALATION Q4H PRN PRN PRN Reason: SOB &/OR WHEEZING Allopurinol (Zyloprim) 300 mg PO DAILY@0800 [facility] Last Admin: 08/06/18 08:25 Dose: 300 mg Amlodipine Besylate (Norvasc) 5 mg PO DAILY [facility] Last Admin: 08/06/18 08:20 Dose: 5 mg Famotidine (Pepcid) 20 mg PO DAILY [facility] Last Admin: 08/06/18 06:06 Dose: 20 mg Furosemide (Lasix) 20 mg PO MOWEFR [facility] Last Admin: 08/05/18 09:37 Dose: Not Given Hydrochlorothiazide () 12.5 mg PO DAILY [facility] Last Admin: 08/06/18 08:26 Dose: 12.5 mg Insulin Human Lispro (Humalog Kwikpen (Bkc)) 0 unit SC [facility]; Protocol Last Admin: 08/06/18 06:59 Dose: Not Given Ketorolac Tromethamine (Toradol) 15 mg IV Q6H PRN PRN PRN Reason: PAIN Last Admin: 08/04/18 03:03 Dose: 15 mg Melatonin (Melatonin) 5 mg PO QHS PRN PRN Reason: SLEEP Last Admin: 08/04/18 22:54 Dose: 5 mg Met[facility] ([facility]) [facility] Last Admin: 08/06/18 08:26 Dose: 500 mg Metoprolol Succinate (Toprol Xl (Beta Zeina)) 50 mg PO DAILY [facility] Last Admin: 08/06/18 08:25 Dose: 50 mg Morphine Sulfate () 2 - 4 mg IV Q2H PRN PRN PRN Reason: Severe pain (6-10) Morphine Sulfate () 2 - 4 mg IV Q2H PRN PRN PRN Reason: Severe pain (6-10) Nutritional Formula (Lactose Free) (Glucerna Shake) [facility] Last Admin: 08/06/18 08:15 Dose: 120 ml Ondansetron HCl (Zofran) 4 mg IV Q6H PRN PRN PRN Reason: Nausea Oxycodone HCl (Oxyir) 5 - 10 mg PO Q4H PRN PRN PRN Reason: PAIN Potassium Chloride (K-Dur) [facility] Last Admin: 08/06/18 08:26 Dose: 20 meq Promethazine HCl (Phenergan) 12.5 mg IV Q6H PRN PRN PRN Reason: NAUSEA/VOMITING Scopolamine HBr (Transderm-Scop) 1 patch TD Q3D [facility] Last Admin: 08/06/18 04:56 Dose: Not Given Senna/Docusate Sodium (Senokot-S, Meseret-Colace) 2 tablet PO BID PRN PRN PRN Reason: Constipation Sodium Chloride () 5 - 15 ml IV UD PRN PRN Reason: SALINE FLUSH Last Admin: 08/04/18 03:03 Dose: 10 ml Tolterodine Tartrate (Detrol La) 4 mg PO DAILY [facility] Last Admin: 08/06/18 08:26 Dose: 4 mg Warfarin Sodium (Coumadin (Pbkc)) 2.5 mg PO QODAY@1700 [facility] Last Admin: 08/04/18 16:13 Dose: 2.5 mg Warfarin Sodium (Coumadin (Pbkc)) 3 mg PO QODAY@1700 [facility] Last Admin: 08/05/18 18:04 Dose: 3 mg Medical Necessity - Tobacco Use Smoking Status: Current some day smoker Tobacco Use: Pipe Assessment/Plan All Active Problems Atrial fibrillation (Acute) 78-year-old with past medical history of chronic atrial fibrillation, heart failure preserved EF, hypertension, type II DM, who comes in with complaints of left shoulder pain ongoing for years, limiting his activities. Patient is stat us post left shoulder replacement. 1. POD #2 status post left total shoulder arthroplasty for left shoulder cuff tear arthroplasty, pain is controlled, in left arm sling immobilizer, PT and OT consulted, further management per orthopedic surgery. 2. Chronic atrial fibrillation, rate controlled, metoprolol and Coumadin, INR is subtherapeutic 3. Hypertension, controlled, on amlodipine, HCTZ, metoprolol, will continue to monitor. 4. Type II DM, HgBA1c is 7.0, blood sugars are fairly controlled, on metformin, will continue with accucheks and ISS 5. Gout, no signs of acute gouty attack, on allopurinol 6. DVT PPx- on coumadin, SCDS and early ambulation; INR is subtherapeutic. Code Visit Inpatient E&M: 47289 Subs Hosp L2
--- NOTE | 2018-08-06 11:29 | NURSING ---
Report given to Joshua mendez in TCU at this time.
[2018-08-06 11:40] LABS: Bedside Glucose 156 mg/dL (70-110)
--- NOTE | 2018-08-08 07:32 | PCM.DC.SUM ---
Discharge Date and Diagnosis - Primary Discharge Diagnosis Left shoulder rotator cuff arthropathy - Secondary Discharge Diagnosis Chronic Problems Atrial fibrillation (Chronic) Right rotator cuff tear arthropathy (Chronic) Diabetes mellitus (Chronic) Hypertension (Chronic) Gout (Chronic) Osteoarthritis (Chronic) Chronic diastolic heart failure (Chronic) Kidney stones (Chronic) Hospital Course and Treatment Medicine Summary of Care Provided: Patient is a 78-year-old male who has left shoulder rotator cuff arthropathy. After failing conservative measures, the patient opted to proceed with a left reverse total shoulder arthroplasty. The patient underwent the above-stated procedure on August 03, 2018. Patient did receive perioperative antibiotics. Intraoperatively was uneventful. For details please see dictated operative note. The patient was placed in left shoulder UltraSling, bilateral SCDs, remained stable in recovery. Patient was admitted to the 3rd floor at [facility]. The patient's pain was managed with the use of IV and p.o. pain medications. Medicine was consulted for postoperative medical management. Patient participated in physical therapy. Patient did have difficulty with balance and required significant assistance with physical therapy. It was recommended that patient required fdc facility upon discharge. Patient was discharged on postoperative day #3 to transitional care unit at [facility]. Patient was given medications stated below. Patient will follow up with [facility] per postop instructions for reassessment. - Physical Exam Vital Signs Temp Pulse Resp BP Pulse Ox 98.2 F 97 20 H 111/76 94 08/06/18 08:30 08/06/18 08:30 08/06/18 08:30 08/06/18 08:30 08/06/18 08:30 Oxygen Flow Rate (L/min) 2 Oxygen Delivery Method Room Air Weight: 116.3 kg Body Mass Index (BMI) 37.8 Finger Stick Blood Glucose 196 Intake and Output for Last 24 Hours 08/06/18 08/07/18 08/08/18 23:59 23:59 23:59 Intake Total 700 / 700 Output Total 450 / 450 Balance 250 / 250 Discharge Diet: 1800 Calorie Control Diet Discharge Activity: May Not Drive May shower in (days): 1 - Turned dressing away from water Ice area for (Minutes): 20 - Ice area for 20 minutes each hour while awake Weight Bearing Status: Weight bearing as tolerated Keep extremity elevated above heart level: Operative Extremity Call your doctor if your incision/area has: Continuous Slow Oozing, Sudden Increased Bleeding, Increased Pain/ Swelling, Increased Redness, Foul Smelling Discharge Call your doctor if you observe: Fever of 101 or Higher, Coldness, Increased Pain, Numbness or Tingling, Change in Color Remove Dressing in (days):: 4 - Okay to remove on August 08, 2018 Home Medications: Medications to take at Discharge Allopurinol 300 mg PO DAILY 07/23/15 Metformin HCl [Glucophage] 500 mg PO BIDCM 07/23/15 Albuterol Inhaler [Ventolin Hfa] 2 puff INHALATION Q4H PRN PRN 03/21/18 Amlodipine [Norvasc] 5 mg PO DAILY 03/21/18 Furosemide [Lasix] 20 mg PO MOWEFR 03/21/18 Metoprolol Succinate [Toprol Xl] 50 mg PO DAILY 03/21/18 Oxybutynin Chloride [Ditropan Xl] 10 mg PO BID 03/21/18 Warfarin [Coumadin] 2.5 mg PO QODAY 03/21/18 Warfarin [Coumadin] 3 mg PO QODAY 03/21/18 hydroCHLOROthiazide [Hydrochlorothiazide] 12.5 mg PO DAILY 03/21/18 Magnesium 250 mg PO DAILY 07/22/18 Potassium Chloride [Klor-Con] 20 meq PO DAILY 07/22/18 Vitamin B Complex 1 each PO DAILY 07/22/18 Senna/Docusate Sodium [Senokot-S] 2 tab PO BID PRN PRN #20 tab 08/04/18 Acetaminophen [Tylenol Extra Strength] 1,000 mg PO Q8H PRN PRN 08/06/18 Following Prescrptions Were Given to Patient: Senna/Docusate Sodium [Senokot-S] 2 tab PO BID PRN PRN #20 tab PRN Reason: Constipation Primary Care Physician: Man Cha MD [Primary Care Provider] - Please Follow Up With: [facility] physical therapy When: 08/18/18 @ 3:30 pm with [place] Please Follow Up With: Dennis Page PA-C When: 08/18/18 @ 2:15 pm Additional Instructions: Follow [facility] postop instructions Medical Necessity - Tobacco Use Smoking Status: Current some day smoker Tobacco Use: Pipe Meaningful Use Info Meaningful Use Diagnoses (Choose all that apply): None applicable
--- OUTSIDE RECORDS SUMMARY | 2018-09-19 01:52 | XMS RPT_ITS ---
:1940 Author Organization OHIP Support Name Relationship Address Phone DONELL FLOYD Unavailable [address] + [place] [address] R Unavailable Unavailable Unavailable FOZIA, DONELL Unavailable [address] + [place] [address] R Unavailable Unavailable Unavailable FOZIA DONELL Unavailable [address] + [place] [address] R Unavailable Unavailable Unavailable FOZIA, DONELL Unavailable [address] + [place] [address] R Unavailable Unavailable Unavailable FOZIA, DONELL Unavailable [address] + [place] [address] R Unavailable Unavailable Unavailable FOZIA, DONELL Unavailable [address] + [place] [address] R Unavailable Unavailable Unavailable FOZIA, DONELL Unavailable [address] + [place] [address] R Unavailable Unavailable Unavailable FOZIA, DONELL Unavailable [address] + [place] [address] R Unavailable Unavailable Unavailable FOZIA, DONELL Unavailable [address] + [place] [address] R Unavailable Unavailable Unavailable FOZIA, DONELL Unavailable [address] + [place] [address] R Unavailable Unavailable Unavailable FOZAI, DONELL Unavailable [address] + [place] [address] R Unavailable Unavailable Unavailable FOZIA, DONELL Unavailable [address] + [place] [address] R Unavailable Unavailable Unavailable FOZIA, DONELL Unavailable [address] + [place] [address] R Unavailable Unavailable Unavailable FOZIA, DONELL Unavailable [address] + [place] [address] R Unavailable Unavailable Unavailable FOZIADUSTINCY Unavailable [address] + [place] [address] R Unavailable Unavailable Unavailable FOZIADUSTINCY Unavailable [address] + [place] [address] R Unavailable Unavailable Unavailable FOZIADONELL Unavailable [address] + [place] [address] R Unavailable Unavailable Unavailable FOZIADUSTINCY Unavailable [address] + [place] [address] R Unavailable Unavailable Unavailable FOZIADUSTINCY Unavailable [address] + [place] [address] R Unavailable Unavailable Unavailable FOZIADUSTINCY Unavailable [address] + [place] [address] R Unavailable Unavailable Unavailable FOZIADUSTINCY Unavailable [address] + [place] [address] R Unavailable Unavailable Unavailable FOZIADUSTINCY Unavailable [address] + [place] [address] R Unavailable Unavailable Unavailable Care Team Providers Name Role Phone Jp Sanabria Attending Unavailable Kaushik, Vick Referring Unavailable Kaushik, Vick Admitting Unavailable Paintsil, [place] Attending Unavailable Juve Faulkneren Referring Unavailable [facility] Care Unavailable Paintsil, [place] Consulting Unavailable Kaushik, Vick Consulting Unavailable Kaushik, Vick Admitting Unavailable Paintsil, [place] Attending Unavailable Kaushik Vick Referring Unavailable [facility], Man [facility] Care Unavailable Paintsil, [place] Consulting Unavailable Kaushik, Vick Consulting Unavailable Kaushik, Vick Admitting Unavailable Paintsil, [place] Attending Unavailable Kaushik Vick Referring Unavailable [facility], Man Primary Care Unavailable Paintsil, [place] Consulting Unavailable Kaushik Vick Consulting Unavailable Man Cha Attending Unavailable Starla, Man Primary Care Unavailable Man Cha Attending Unavailable Starla, Man Referring Unavailable [facility], Man Primary Care Unavailable Darwin Louis Attending Unavailable Starla, Man Referring Unavailable Kaushik, Vick Admitting Unavailable Paintsil, [place] Attending Unavailable Juve Faulkneren Referring Unavailable [facility], Man Primary Care Unavailable Paintsil, [place] Consulting Unavailable Kaushik, Vick Consulting Unavailable Franco, Nima Chi Admitting Unavailable Franco, Nima Chi Attending Unavailable [facility], Man Primary Care Unavailable Polo Carpenter Attending Unavailable Franco, Nima Chi Referring Unavailable Starla, Man Primary Care Unavailable Manoj Alberto Attending Unavailable Starla, Man Attending Unavailable Starla, Man Referring Unavailable Starla, Man Primary Care Unavailable Starla, Man Attending Unavailable Starla, Man Primary Care Unavailable Starla, Man Attending Unavailable Starla, Man Referring Unavailable Starla, Man Primary Care Unavailable Jp Sanabria Attending Unavailable Starla, Man Referring Unavailable Moodissen, Jp Attending Unavailable AnyisJp chatterjee Referring Unavailable Starla, Man Primary Care Unavailable Anish Dalton D.O. Attending Unavailable Jp Sanabria Referring Unavailable Starla, Man Primary Care Unavailable Jp Sanabria Consulting Unavailable Elly, Jp Attending Unavailable Jp Sanabria Referring Unavailable Starla, Man Primary Care Unavailable Jp Sanabria Consulting Unavailable Elly, Jp Attending Unavailable Jp Sanabria Referring Unavailable Vick Faulkner Attending Unavailable Starla, Man Primary Care Unavailable Kaushik Vick Referring Unavailable Kaushik Vick Admitting Unavailable Vick Faulkner Attending Unavailable Juve Faulkneren Referring Unavailable Starla, Man Primary Care Unavailable Paintsil, [place] Consulting Unavailable Vick Faulkner Attending Unavailable Starla, Man Primary Care Unavailable JUAN CHIN Attending Unavailable GIUSEPPE, JUAN E Referring Unavailable JUAN CHIN E Attending Unavailable GIUSEPPE, JUAN E Referring Unavailable GIUSEPPE, JUAN E Attending Unavailable GIUSEPPE, JUAN E Referring Unavailable GIUSEPPE, JUAN E Referring Unavailable GIUSEPPE, JUAN E Referring Unavailable GIUSEPPE, JUAN E Referring Unavailable GIUSEPPE, JUAN E Attending Unavailable GIUSEPPE, JUAN E Referring Unavailable NATHAN CHENEY Referring Unavailable GIUSEPPE, JUAN E Referring Unavailable GIUSEPPE, JUAN E Attending Unavailable GIUSEPPE, JUAN E Referring Unavailable GEOVANY CHINNETH Attending Unavailable GIUSEPPE, JUAN Referring Unavailable [facility], MAN Primary Care Unavailable JUAN CHIN Attending Unavailable GIUSEPPE, JUAN Referring Unavailable PROBLEMS PROBLEMS DATE TYPE CONDITION / CODE ATTENDING STATUS SOURCE 09/10/2018 Unknown R52 - Pain, Dolly, Active [place] unspecified / [place] Community R52(ICD-10) Hospital Repository 08/31/2018 Unknown R00.0 - Polo Carpenter Active [place] Tachycardia, Community unspecified / Hospital R00.0(ICD-10) Repository 08/09/2018 Unknown Z47.1 - Aftercare Franco, Nima Chi Active [place] following joint Community replacement surgery Hospital / Z47.1(ICD-10) Repository 08/09/2018 Unknown M12.811 - Other Franco, Nima Chi Active [place] specific Community arthropathies, not Hospital elsewhere Repository classified, right shoulder / M12.811(ICD-10) 08/09/2018 Unknown M75.101 - Franco, Nima Chi Active [place] Unspecified rotator Community cuff tear or Hospital rupture of right Repository shoulder, not specified as traumatic / M75.101(ICD-10) 08/06/2018 Unknown 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 KaushikVick hayden Active [place] of left artificial Community shoulder joint / Hospital Z96.612(ICD-10) Repository 08/01/2018 Unknown I10 - Essential MoodispawJp Active [place] (primary) Community hypertension / Hospital I10(ICD-10) Repository 05/02/2018 Unknown I48.0 - Paroxysmal MoodispawJp Active [place] atrial fibrillation Community / I48.0(ICD-10) Hospital Repository 05/02/2018 Unknown 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, 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 / I48.1(ICD-10) Hospital Repository 02/10/2018 Active Paroxysmal atrial NA Active [place] fibrillation / Clinic Main I48.0(ICD-10) [place] Repository 01/18/2018 Active Encounter for NA Active [place] screening for Clinic Main malignant neoplasm [place] of colon / Repository Z12.11(ICD-10) 2015 Active [facility] (primary) NA Active [place] hypertension / Clinic Main I10(ICD-10) [place] Repository 01/07/2018 Active 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) / Repository D50.0(ICD-10) 01/07/2018 Admitting Unknown / JUAN CHIN Active [place] General diagnosis [facility](Unknown[facility] Repository 11/30/2017 Unknown I49.9 - Cardiac Man Cha Active [place] arrhythmia, Community unspecified / Hospital I49.9(ICD-10) Repository 11/30/2017 Unknown E11.9 - Type 2 Man Cha diabetes mellitus Community without Hospital complications / Repository E11.9(ICD-10) 11/30/2017 Unknown R60.9 - Edema, Man Cha [place] unspecified / Community R60.9(ICD-10) Hospital Repository 10/07/2017 Unknown I50.9 - Heart Man Cha failure, Community unspecified / Hospital I50.9(ICD-10) Repository 10/07/2017 Unknown R06.00 - Dyspnea, Man Cha Active [place] unspecified / Community R06.00(ICD-10) Hospital Repository PROCEDURES PROCEDURES No Procedure Records FoundRESULTS RESULTS EXTREMITY LOWER Observed: 09/13/2018 Status: F Source: [place] WITHOUT CONTRA 11:46 AM [facility] REPOSITORY [facility] Imaging Services [address] [place] [address] Extremity Lower without Contra MR#: [id number] Acct: [id number] Name: PANDA FLOYD Rep #: [id number] : 1940 M 78 From: Dong Multani MD PCP: Man Cha MD Status: REG CLI Study: Extremity Lower without Contra Date of Exam: 09/13/18 Exam# [id number] Ordering Dr: Man Cha MD STUDY: CT SCAN HIP RIGHT REASON FOR EXAM: Male, 78 years old. 5 day history of hip pain. No known injury. RADIATION DOSAGE (If Supplied By Facility): CTDIvol = ( 44.30 ) mGy, DLP = ( 1530.44 ) mGycm. Individualized dose optimization techniques were used for this CT.? TECHNIQUE: Multiple axial tomographic images of the right hip joint were obtained without intravenous contrast administration. Coronal and sagittal reconstruction was obtained as well. COMPARISON: Comparison is made with prior radiograph of the right hip performed earlier today. FINDINGS: Is evidence of a diffuse soft tissue density within the hip joints. This extends to the overlying musculature. An inflammatory process or synovial hypertrophy should be ruled out. There is a mild irregularity of the greater trochanter of the hip. There is also evidence of a soft tissue prominence of the iliac is muscle. Tqaj-[id number] degree of degenerative changes of the hip joint. CT/Extremity Lower without Contra IMPRESSION: Diffuse soft tissue swelling involving the hip joint as described. An inflammatory process or synovial hypertrophy should be ruled out. Degenerative changes of the hip joint. Electronically Signed: Dong Multani MD at 13:48 EST Tel [phone], Service support , CC: Man Cha MD Business Support Administrator: Signed EMERGENCY DEPARTMENT Observed: 09/10/2018 Status: F Source: [place] SUMMARY 2:47 PM [facility] REPOSITORY [facility] Medical Records Department [address] [place] [address] Emergency Department Summary 09/10/18 0803 MR#: [id number] Acct: [id number] Name: PANDA FLOYD Rep #: [id number] : 1940 78 From: Manoj Alberto MD PCP: Man Cha MD Status: DEP ER - ER Visit Summary Date of Service: 09/10/18 Chief Complaint: [] 3 days of right posterior hip pain History of Present Illness: The patient is a 78 M [] history of left shoulder replacement 5 weeks ago, prior lumbar back surgery 7 years ago he reports for about 3 days he has had pain to the right hip that radiates from the right back region across the pelvic brim into the anterior thigh right, he is actually indicating when he walks forward he has more pain but can walk backwards with less pain he has trouble flexing at the hip, when you ask him to flex his knee toward his chest it causes pain, no trauma no fever no cough normal bowel bladder habits no other complaints he is healing well from his prior left shoulder replacement surgery and he has a long splint on Physical Examination: [] 152/80 afebrile General, no distress resting comfortably HEENT is generally unremarkable The neck is supple no adenopathy Cardiovascular, regular rate and rhythm Lungs, clear bilateral Abdomen, soft nontender Extremities, no clubbing cyanosis or edema, he has a pain from the right paralumbar musculature that crosses the pelvic ridge, goes down into the mid anterior right thigh, he cannot forward elevate or flex the hip knee toward chest, causes pain logrolling causes some pain, his knee function tib-fib ankle and foot are unremarkable pulses symmetric cap refill normal sensation normal, he indicates he has trouble going from supine to the standing position and when he stands he feels better but again if he tries to put his right foot in front of himself he complains of pain Neurologic, awake alert answering questions appropriately moving all 4 extremities Test Results: [] Emergency Department Course and Treatment: [] Patient indicates his health has been good his healing from the left shoulder surgery, he has been using a cane to support himself right upper extremity, he denies any trauma, his back condition lumbar spine surgery status is stable we discussed the long differential he is eating and drinking well no abdominal pain normal bowel bladder habits at this time x-rays were obtained pain management Treatment Plan: [] The patient's x-ray show DJD at all levels see those reports, no fractures nothing acute, reevaluation is resting cuffing the bed he states he feels much better we discussed inpatient versus outpatient management he does not wish to be under the hospital wants to go home prefers outpatient management, he and the indicate he is been leaning to the right side with a cane quite a bit and believe this may have exacerbated things, he is on Coumadin he does not believe he is a fall risk as again he is been very stable with a cane and he feels that he will have the walker to use should he require additional ambulatory support, his INRs have been therapeutic he will be prescribed a walker [place] No. 12 for pain to use as needed if Tylenol is ineffective and follow-up with his family physicians and return for change in symptoms Disposition: [] Impression: [] Right hip posterior back pain with some radicular symptoms, status post left shoulder replacement This note was generated with [employer] software. It may contain incorrect words, spelling, and punctuation that were not noted in review of the chart prior to signing ED Disposition - Plan for ED Patient: Chief Complaint: Lower Extremity Injury Instructions: ED Contusion Hip Prescriptions: Hydrocodone Bitart/Apap 5-325 [[place] 5MG-325MG] 1 tab PO Q4H PRN PRN 2 Days #10 tab PRN Reason: Pain Referrals: Man Cha MD [Primary Care Provider] - What to do if you have Problems For any increased pain, shortness of breath, bleeding, nausea or vomiting, chest pain, or any unexpected problems, contact your Primary Care Provider. Call [facility] ([phone]) or report to the closest Emergency Room. Call 911 if necessary. 09/10/18 1447 <Electronically signed by Manoj Alberto MD> Date Manoj Alberto MD Cosigner Signature (If Indicated): Date CC: Man Cha MD DISCHARGE INSTRUCTION Observed: 09/10/2018 Status: F Source: [place] 9:29 AM [facility] REPOSITORY [facility] Medical Records Department [address] [place] [address] Discharge Instruction 09/10/18926 MR#: [id number] Acct: [id number] Name: PANDA FLOYD Rep #: [id number] : 1940 78 From: Manoj Alberto MD PCP: Man Cha MD Status: REG ER ED Disposition - Plan for ED Patient: Chief Complaint: Lower Extremity Injury Instructions: ED Contusion Hip Prescriptions: Hydrocodone Bitart/Apap 5-325 [[place] 5MG-325MG] 1 tab PO Q4H PRN PRN 2 Days #10 tab PRN Reason: Pain Referrals: Man Cha MD [Primary Care Provider] - What to do if you have Problems For any increased pain, shortness of breath, bleeding, nausea or vomiting, chest pain, or any unexpected problems, contact your Primary Care Provider. Call [facility] ([phone]) or report to the closest Emergency Room. Call 911 if necessary. 09/10/18 0929 <Electronically signed by Manoj Alberto MD> Date Manoj Alberto MD Cosigner Signature (If Indicated): Date CC: Man Cha MD HIP, UNI W/ PELVIS Observed: 09/10/2018 Status: F Source: [place] 2-3 VIEWS 8:01 AM [facility] REPOSITORY [facility] Imaging Services [address] [facility] [place] [address] HIP, UNI W/ Pelvis 2-3 Views MR#: [id number] Acct: [id number] Name: PANDA FLOYD Rep #: [id number] : 1940 78 From: Fadumo Rivera MD PCP: Man Cha MD Status: REG ER Study: HIP, UNI W/ Pelvis 2-3 Views Date of Exam: 09/10/18 Exam# [id number] Ordering Dr: Manoj Alberto MD STUDY: X-RAY - RIGHT HIP REASON FOR EXAM: Male, 78 years old. Right-sided hip and thigh pain for several days. TECHNIQUE: 3 views of the hip. COMPARISON: MRI of the pelvis dated November 01, 2014. FINDINGS: There is multilevel degenerative disc disease in the degenerative arthropathy of the lumbar spine. There are osteoarthritic changes of the femoral head with marginal osteophyte formation. There is osteoarthritic spur formation of the acetabular rim. There is mild articular joint space narrowing. Normal visualized superior and inferior pubic rami and ischial tuberosities. There is no demonstrated hip fracture. RAD/HIP, UNI W/ Pelvis 2-3 Views IMPRESSION: 1. Moderately severe degenerative arthropathy of the right hip and mild degenerative arthropathy of left hip. 2. Moderately severe multilevel degenerative changes of the lumbar spine. Electronically Signed: Fadumo Rivera MD at 9:02 EST , Service support , CC: MD Sabina Alberto; Man Cha MD Business Support Administrator: Signed LUMBAR SPINE 2 OR 3 Observed: 09/10/2018 Status: F Source: [place] VIEWS 8:01 AM [facility] REPOSITORY [facility] Imaging Services [address] [place] [address] Lumbar Spine 2 or 3 Views MR#: [id number] Acct: [id number] Name: PANDA FLOYD Rep #: [id number] : 1940 M 78 From: Fadumo Rivera MD PCP: Man Cha MD Status: REG ER Study: Lumbar Spine 2 or 3 Views Date of Exam: 09/10/18 Exam# [id number] Ordering Dr: Manoj Alberto MD STUDY: X-RAY - LUMBAR SPINE REASON FOR EXAM: Male, 78 years old. Low back pain. TECHNIQUE: 3 view(s) of the lumbar spine were obtained. COMPARISON: Prior comparable comparison studies are not available for review at this time. FINDINGS: Normal lumbar lordosis. There is no substantial scoliosis. There is a normal alignment of the vertebrae. There is multilevel endplate spondylosis of the lumbar vertebrae. There is multi-level degenerative disc disease with multi-level disc space narrowing. There is moderately severe degenerative arthropathy the facet joints. Patient appears to have had laminectomies of L3, L4 and L5. There appears be dilated small bowel with maximum transverse dimension of approximately 4.5 cm. Pelvic calcifications are probably phleboliths. There are degenerative changes of the right hip. There are vascular calcifications of the abdominal aorta. RAD/Lumbar Spine 2 or 3 Views IMPRESSION: 1. Moderately severe multilevel degenerative disc disease and degenerative arthropathy of the lumbar spine. 2. Postoperative changes of the lumbar spine. 3. Dilated small bowel suggesting bowel obstruction. Electronically Signed: Fadumo Rivera MD at 9:06 EST , Service support , CC: MD Sabina Alberto; Man Cha MD Business Support Administrator: Signed 12 LEAD ELECTROCARDIOGRAM Observed: 08/17/2018 Status: F Source: [place] 2:53 PM [facility] REPOSITORY [facility] Cardiovascular Services [address] [place] [address] 12 Lead EKG 08/08/18 0937 MR#: [id number] Acct: [id number] Name: PANDA FLOYD Rep #: [id number] : 1940 78 From: Polo Carpenter MD Attending Dr: Franco LOPES,Nima Nguyen Status: DIS IN Ordering Dr: Nima Gamez MD Date: 08/08/18 Location: [facility] Sex: M C Admitted: 08/06/18 Test Reason : Blood Pressure : / mmHG Vent. Rate : 101 BPM Atrial Rate : 101 BPM P-R Int : 176 ms QRS Dur : 090 ms QT Int : 374 ms P-R-T Axes : 084 012 046 degrees QTc Int : 484 ms Sinus tachycardia with frequent Premature ventricular complexes Otherwise normal ECG When compared with ECG of 22-JUL-2018 15:43, Premature ventricular complexes are now Present Confirmed by POLO CARPENTER ([id number]), editor index QUENTIN RIVERA ([id number]) on 08/17/2018 2:53:15 PM Referred By: FRANCO Confirmed By:POLO CARPENTER 08/17/18 1453 Date Polo Carpenter MD CC: Man Cha MD; Nima Gamez MD Signed BEDSIDE GLUCOSE Collected: 08/09/2018 Status: F Source: [place] 6:16 AM [facility] REPOSITORY TYPE CODE TESTS RESULT OUT OF REFERENCE UNITS RANGE LAB L501.080 70-110 mg/dL High BEDSIDE GLU 163 Result Comment: MANAGEMENT OF PATIENT CARE PER NURSING PROTOCOL Performed By: #### L501.080 #### [facility] Laboratory Point of Care [address] [place] [address] DISCHARGE SUMMARY Observed: 08/08/2018 Status: F Source: [place] 8:26 PM [facility] REPOSITORY [facility] Medical Records Department [address] [place] [address] Discharge Summary 08/08/182024 MR#: [id number] Acct: [id number] Name: PANDA FLOYD Rep #: [id number] : 1940 78 From: Nima Gamez MD PCP: Man Cha MD Status: ADM IN Location: [place] [address] Discharge Date and Diagnosis Date of Admission: 08/06/18 Date of Discharge: 08/09/18 - Secondary Discharge Diagnosis Chronic Problems Atrial fibrillation (Chronic) Right rotator cuff tear arthropathy (Chronic) Diabetes mellitus (Chronic) Hypertension (Chronic) Gout (Chronic) Osteoarthritis (Chronic) Chronic diastolic heart failure (Chronic) Kidney stones (Chronic) Hospital Course and Treatment Imaging Results: 08/06/18 12:07 Diet: Calorie Controlled How many daily calories?: 1800 calorie Clinical Impression(s) from Imaging Studies Chest X-Ray 08/08/18 09:49 IMPRESSION: Mild increased markings at the lung bases suggestive of linear scarring. Electronically Signed: Dong Multani MD at 10:48 EST Tel [phone], Service support , Labs (Last 48 Hours) WBC 9.6 RBC 3.53 L Hgb 10.9 L Hct 33.2 L MCV 94.1 H MCH 30.9 MCHC 32.8 RDW 13.3 WBC RBC Hgb Hct MCV MCH MCHC WBC Operations: None Procedures: None Summary of Care Provided: The patient is a 78 year old Male with below past medical history hospitalized for left reverse total shoulder replacement 08/03/[address] Kaushik, complicated by fall, admitted to TCU with debility, here for rehabilitation, strengthening, prior to discharge home with spouse. Discharge home with spouse. - Physical Exam Vital Signs Temp Pulse Resp BP Pulse Ox 98.0 F 96 20 H 131/72 H 93 08/08/18 16:00 08/08/18 16:00 08/08/18 16:00 08/08/18 16:00 08/08/18 16:00 Oxygen Delivery Method Room Air Weight: 122.833 kg Body Mass Index (BMI) 39.9 Finger Stick Blood Glucose 196 Orthostatic Vital Signs Start: 08/08/18 10:38 Freq: X1 Status: Active Protocol: Activity Type Activity Date Activity User E-Sign Co-Sign Detail Recorded Client Recorded Date Recorded By Document 08/08/18 10:38 LATRELL [id number] 08/08/18 10:40 LATRELL Orthostatic Vitals Standing -Blood Pressure (90/60-120/80) 150/88 H -Extremity Use Right Arm -Pulse Rate (60-100) 90 Sitting -Blood Pressure (90/60-120/80) 140/92 H Intake and Output for Last 24 Hours Intake Total 360 / 360 1440 / 1440 1080 / 1080 Balance 360 / 360 1440 / 1440 1080 / 1080 Laboratory Tests Past 24 Hrs PT 16.1 H INR 1.3 POC Glucose POC Glucose 143 H 155 H Discharge Diet: No Restrictions Discharge Activity: Return to Normal Activity, May Shower, Use Walker Weight Bearing Status: Weight bearing as tolerated Call your doctor if you observe: Fever of 101 or Higher, Inability to urinate, Inability to have a bowel movement, Shortness of breath, Chest pain, Uncontrolled pain Home Medications: Medications to take at Discharge Allopurinol 300 mg PO DAILY 07/23/15 Metformin HCl [Glucophage] 500 mg PO BIDCM 07/23/15 Amlodipine [Norvasc] 5 mg PO DAILY 03/21/18 Oxybutynin Chloride [Ditropan Xl] 10 mg PO BID 03/21/18 Warfarin [Coumadin] 2.5 mg PO QODAY 03/21/18 Warfarin [Coumadin] 3 mg PO QODAY 03/21/18 hydroCHLOROthiazide [Hydrochlorothiazide] 12.5 mg PO DAILY 03/21/18 Magnesium 250 mg PO DAILY 07/22/18 Vitamin B Complex 1 each PO DAILY 07/22/18 Acetaminophen [Tylenol] 1,000 mg PO Q8H PRN PRN 08/06/18 Albuterol Inhaler [Ventolin Hfa] 2 puff INHALATION Q4H PRN PRN #1 inhaler 08/08/18 Furosemide [Lasix] 20 mg PO MOWEFR #12 tablet 08/08/18 Metoprolol(XL)Succ [Toprol Xl (Beta Armando)] 50 mg PO DAILY #30 tablet 08/08/18 Oxycodone [Oxyir] 5 - 10 mg PO Q4H PRN PRN 7 Days #30 tab 08/08/18 Peg 3350/Na Sulf,Bicarb,Cl/KCl [Peg-3350 and Electrolytes Soln] 4,000 ml PO X1 1 Days #4000 soln.recon 08/08/18 Polyethylene Glycol 3350 [Miralax] 17 gm PO DAILY #30 packet 08/08/18 Potassium Chloride [K-Dur] 20 meq PO DAILYCM #30 tablet 08/08/18 Senna/Docusate Sodium [Senokot-S] 2 tab PO BID PRN PRN #60 tab 08/08/18 Following Prescrptions Were Given to Patient: Albuterol Inhaler [Ventolin Hfa] 2 puff INHALATION Q4H PRN PRN #1 inhaler PRN Reason: Sob AND /Or Wheezing Oxycodone [Oxyir] 5 - 10 mg PO Q4H PRN PRN 7 Days #30 tab PRN Reason: Mod-Severe Pain (4-10/10) Furosemide [Lasix] 20 mg PO MOWEFR #12 tablet Metoprolol(XL)Succ [Toprol Xl (Beta Armando)] 50 mg PO DAILY #30 tablet Peg 3350/Na Sulf,Bicarb,Cl/KCl [Peg-3350 and Electrolytes Soln] 4,000 ml PO X1 1 Days #4000 soln.recon Polyethylene Glycol 3350 [Miralax] 17 gm PO DAILY #30 packet Potassium Chloride [K-Dur] 20 meq PO DAILYCM #30 tablet Senna/Docusate Sodium [Senokot-S] 2 tab PO BID PRN PRN #60 tab PRN Reason: Constipation Primary Care Physician: Man Cha MD [Primary Care Provider] - Please follow up with your Primary Care Physician in: 1 week. Please Follow Up With: Dennis Page PA-C When: 2 weeks. Please Follow Up With: [facility]- [place] When: 1 week. Please Follow Up With: Man Cha MD When: after DC Disposition: Home Minutes spent on discharge:: 30 Patient Condition:: Stable Medical Necessity - Tobacco Use Smoking Status: Current some day smoker Tobacco Use: Cigarettes Meaningful Use Info Meaningful Use Diagnoses (Choose all that apply): None applicable 08/08/182025 <Electronically signed by Nima Gamez MD> Date Nima Gamez MD Cosigner Signature (if applicable): Date CC: Man Cha MD; Nima Gamez MD Signed DISCHARGE INSTRUCTION Observed: 08/08/2018 Status: F Source: [place] 8:25 PM [facility] REPOSITORY [facility] Medical Records Department [address] [place] [address] Instructions for Home/Discharge Instructions 08/08/182022 MR#: [id number] Acct: [id number] Name: PANDA FLOYD Rep #: [id number] : 1940 78 From: Nima Gamez MD PCP: Man Cha MD Status: ADM IN - Discharge Diagnoses Current Active Problems: Current Active and Chronic Problems Right rotator cuff tear arthropathy (Chronic) Diabetes mellitus (Chronic) Hypertension (Chronic) Gout (Chronic) Osteoarthritis (Chronic) Chronic diastolic heart failure (Chronic) Kidney stones (Chronic) You will use the following diet at home:: No restrictions, Regular Your food should be the consistency of: Regular Your liquids should be the consistency of: Regular/Thin Discharge Activity: Return to Normal Activity, May Shower, Use Walker Weight Bearing Status: Weight bearing as tolerated Call your doctor if you observe: Fever of 101 or Higher, Inability to urinate, Inability to have a bowel movement, Shortness of breath, Chest pain, Uncontrolled pain Allergies/Adverse Reactions: Allergies No Known Allergies Allergy (Verified 07/22/18 15:08) Medications to take at Discharge Allopurinol 300 mg PO DAILY 07/23/15 Metformin HCl [Glucophage] 500 mg PO BIDCM 07/23/15 Amlodipine [Norvasc] 5 mg PO DAILY 03/21/18 Oxybutynin Chloride [Ditropan Xl] 10 mg PO BID 03/21/18 Warfarin [Coumadin] 2.5 mg PO QODAY 03/21/18 Warfarin [Coumadin] 3 mg PO QODAY 03/21/18 hydroCHLOROthiazide [Hydrochlorothiazide] 12.5 mg PO DAILY 03/21/18 Magnesium 250 mg PO DAILY 07/22/18 Vitamin B Complex 1 each PO DAILY 07/22/18 Acetaminophen [Tylenol] 1,000 mg PO Q8H PRN PRN 08/06/18 Albuterol Inhaler [Ventolin Hfa] 2 puff INHALATION Q4H PRN PRN #1 inhaler 08/08/18 Furosemide [Lasix] 20 mg PO MOWEFR #12 tablet 08/08/18 Metoprolol(XL)Succ [Toprol Xl (Beta Armando)] 50 mg PO DAILY #30 tablet 08/08/18 Oxycodone [Oxyir] 5 - 10 mg PO Q4H PRN PRN 7 Days #30 tab 08/08/18 Peg 3350/Na Sulf,Bicarb,Cl/KCl [Peg-3350 and Electrolytes Soln] 4,000 ml PO X1 1 Days #4000 soln.recon 08/08/18 Polyethylene Glycol 3350 [Miralax] 17 gm PO DAILY #30 packet 08/08/18 Potassium Chloride [K-Dur] 20 meq PO DAILYCM #30 tablet 08/08/18 Senna/Docusate Sodium [Senokot-S] 2 tab PO BID PRN PRN #60 tab 08/08/18 The following prescriptions were given: Albuterol Inhaler [Ventolin Hfa] 2 puff INHALATION Q4H PRN PRN #1 inhaler PRN Reason: Sob AND /Or Wheezing Oxycodone [Oxyir] 5 - 10 mg PO Q4H PRN PRN 7 Days #30 tab PRN Reason: Mod-Severe Pain (4-10/10) Furosemide [Lasix] 20 mg PO MOWEFR #12 tablet Metoprolol(XL)Succ [Toprol Xl (Beta Armando)] 50 mg PO DAILY #30 tablet Peg 3350/Na Sulf,Bicarb,Cl/KCl [Peg-3350 and Electrolytes Soln] 4,000 ml PO X1 1 Days #4000 soln.recon Polyethylene Glycol 3350 [Miralax] 17 gm PO DAILY #30 packet Potassium Chloride [K-Dur] 20 meq PO DAILYCM #30 tablet Senna/Docusate Sodium [Senokot-S] 2 tab PO BID PRN PRN #60 tab PRN Reason: Constipation Primary Care Physician: Man Cha MD [Primary Care Provider] - Please follow up with your Primary Care Physician in: 1 week. Test Results: Test results from this visit will be discussed in further detail at your follow-up appointment, if applicable. Please Follow Up With: Dennis Page PA-C When: 2 weeks. Please Follow Up With: [facility] [place] When: 1 week. Please Follow Up With: Man Cha MD When: after DC Proposed Discharge Date: 08/09/18 08/08/182024 <Electronically signed by Nima Gamez MD> Date Nima Gamez MD CC: Man Cha MD CHEST PA AND LATERAL Observed: 08/08/2018 Status: F Source: [place] 9:50 AM [facility] REPOSITORY [facility] Imaging Services [address] [place] [address] Chest PA and Lateral MR#: [id number] Acct: [id number] Name: PANDA FLOYD Rep #: [id number] : 1940 M 78 From: Dong Multani MD PCP: Man Cha MD Status: ADM IN Study: Chest PA and Lateral Date of Exam: 08/08/18 Exam# [id number] Ordering Dr: Nima Gamez MD STUDY: X-RAY CHEST REASON FOR EXAM: Male, 78 years old. Acute onset of chest pain. Recent left shoulder surgery. TECHNIQUE: PA and lateral views of the chest. COMPARISON: None. FINDINGS: Focal eventration of the anterior medial aspect of the right hemidiaphragm. Mild increased linear markings at the lung bases suggestive of mild bibasilar scarring. No focal infiltrate is seen. There is no demonstrated pleural abnormality. Normal size heart. Normal mediastinum and amauri. Normal visualized pulmonary arteries. There is atherosclerotic tortuosity of the aortic arch and descending thoracic aorta. There are diffuse degenerative changes of the visualized thoracic spine. The patient is status post left shoulder replacement. There is no demonstrated abnormality of the visualized soft tissue structures of the upper abdomen. RAD/Chest PA and Lateral IMPRESSION: Mild increased markings at the lung bases suggestive of linear scarring. Electronically Signed: Dong Multani MD at 10:48 EST Tel [phone], Service support , CC: Man Cha MD; iNma Gamez MD Business Support Administrator: Signed DISCHARGE SUMMARY Observed: 08/08/2018 Status: F Source: [place] 7:37 AM [facility] REPOSITORY [facility] Medical Records Department [address] [place] [id number] Discharge Summary 08/08/18 0732 MR#: [id number] Acct: [id number] Name: PANDA FLOYD Rep #: [id number] : 1940 78 From: Dennis Page PA-C PCP: Man Cha MD Status: DIS IN Y Location: [facility] [id number] Discharge Date and Diagnosis - Primary Discharge Diagnosis Left shoulder rotator cuff arthropathy - Secondary Discharge Diagnosis Chronic Problems Atrial fibrillation (Chronic) Right rotator cuff tear arthropathy (Chronic) Diabetes mellitus (Chronic) Hypertension (Chronic) Gout (Chronic) Osteoarthritis (Chronic) Chronic diastolic heart failure (Chronic) Kidney stones (Chronic) Hospital Course and Treatment Medicine Summary of Care Provided: Patient is a 78-year-old male who has left shoulder rotator cuff arthropathy. After failing conservative measures, the patient opted to proceed with a left reverse total shoulder arthroplasty. The patient underwent the above-stated procedure on August 03, 2018. Patient did receive perioperative antibiotics. Intraoperatively was uneventful. For details please see dictated operative note. The patient was placed in left shoulder UltraSling, bilateral SCDs, remained stable in recovery. Patient was admitted to the 3rd floor at [facility]. The patient's pain was managed with the use of IV and p.o. pain medications. Medicine was consulted for postoperative medical management. Patient participated in physical therapy. Patient did have difficulty with balance and required significant assistance with physical therapy. It was recommended that patient required care home facility upon discharge. Patient was discharged on postoperative day #3 to transitional care unit at [facility]. Patient was given medications stated below. Patient will follow up with [facility] per postop instructions for reassessment. - Physical Exam Vital Signs Temp Pulse Resp BP Pulse Ox 98.2 F 97 20 H 111/76 94 08/06/18 08:30 08/06/18 08:30 08/06/18 08:30 08/06/18 08:30 08/06/18 08:30 Oxygen Flow Rate (L/min) 2 Oxygen Delivery Method Room Air Weight: 116.3 kg Body Mass Index (BMI) 37.8 Finger Stick Blood Glucose 196 Intake and Output for Last 24 Hours Intake Total 700 / 700 Output Total 450 / 450 Balance 250 / 250 Discharge Diet: 1800 Calorie Control Diet Discharge Activity: May Not Drive May shower in (days): 1 - Turned dressing away from water Ice area for (Minutes): 20 - Ice area for 20 minutes each hour while awake Weight Bearing Status: Weight bearing as tolerated Keep extremity elevated above heart level: Operative Extremity Call your doctor if your incision/area has: Continuous Slow Oozing, Sudden Increased Bleeding, Increased Pain/ Swelling, Increased Redness, Foul Smelling Discharge Call your doctor if you observe: Fever of 101 or Higher, Coldness, Increased Pain, Numbness or Tingling, Change in Color Remove Dressing in (days):: 4 - Okay to remove on August 08, 2018 Home Medications: Medications to take at Discharge Allopurinol 300 mg PO DAILY 07/23/15 Metformin HCl [Glucophage] 500 mg PO BIDCM 07/23/15 Albuterol Inhaler [Ventolin Hfa] 2 puff INHALATION Q4H PRN PRN 03/21/18 Amlodipine [Norvasc] 5 mg PO DAILY 03/21/18 Furosemide [Lasix] 20 mg PO MOWEFR 03/21/18 Metoprolol Succinate [Toprol Xl] 50 mg PO DAILY 03/21/18 Oxybutynin Chloride [Ditropan Xl] 10 mg PO BID 03/21/18 Warfarin [Coumadin] 2.5 mg PO QODAY 03/21/18 Warfarin [Coumadin] 3 mg PO QODAY 03/21/18 hydroCHLOROthiazide [Hydrochlorothiazide] 12.5 mg PO DAILY 03/21/18 Magnesium 250 mg PO DAILY 07/22/18 Potassium Chloride [Klor-Con] 20 meq PO DAILY 07/22/18 Vitamin B Complex 1 each PO DAILY 07/22/18 Senna/Docusate Sodium [Senokot-S] 2 tab PO BID PRN PRN #20 tab 08/04/18 Acetaminophen [Tylenol Extra Strength] 1,000 mg PO Q8H PRN PRN 08/06/18 Following Prescrptions Were Given to Patient: Senna/Docusate Sodium [Senokot-S] 2 tab PO BID PRN PRN #20 tab PRN Reason: Constipation Primary Care Physician: Man Cha MD [Primary Care Provider] - Please Follow Up With: [facility] physical therapy When: 08/18/18 @ 3:30 pm with [place] Please Follow Up With: Dennis Page PA-C When: 08/18/18 @ 2:15 pm Additional Instructions: Follow [facility] postop instructions Medical Necessity - Tobacco Use Smoking Status: Current some day smoker Tobacco Use: Pipe Meaningful Use Info Meaningful Use Diagnoses (Choose all that apply): None applicable 08/08/18 0737 <Electronically signed by Dennis Page PA-C> Date Dennis Page PA-C Cosigner Signature (if applicable): Date CC: Dennis JOHNSON; Man Cha MD Signed BEDSIDE GLUCOSE Collected: 08/08/2018 Status: F Source: [place] 6:59 AM [facility] REPOSITORY TYPE CODE TESTS RESULT OUT OF REFERENCE UNITS RANGE LAB L501.080 70-110 mg/dL High BEDSIDE GLU 143 Result Comment: MANAGEMENT OF PATIENT CARE PER NURSING PROTOCOL Performed By: #### L501.080 #### [facility] Laboratory Point of Care [address] [place] [address] PROTHROMBIN TIME W/INR Collected: 08/08/2018 Status: F Source: [place] 5:10 AM [facility] REPOSITORY TYPE CODE TESTS RESULT OUT OF RANGE REFERENCE UNITS LAB L300.4150 11.7-14.9 SECONDS High PROTIME 16.1 LAB L300.4200 Normal INR 1.3 Performed By: #### L300.3900 #### [facility] Laboratory [address] [place], [address] BEDSIDE GLUCOSE Collected: 08/07/2018 Status: F Source: [place] 9:01 PM [facility] REPOSITORY TYPE CODE TESTS RESULT OUT OF REFERENCE UNITS RANGE LAB L501.080 70-110 mg/dL High BEDSIDE GLU 155 Result Comment: MANAGEMENT OF PATIENT CARE PER NURSING PROTOCOL Performed By: #### L501.080 #### [facility] Laboratory Point of Care [address] [place] [address] BEDSIDE GLUCOSE Collected: 08/07/2018 Status: F Source: [place] 5:33 PM [facility] REPOSITORY TYPE CODE TESTS RESULT OUT OF REFERENCE UNITS RANGE LAB L501.080 70-110 mg/dL High BEDSIDE GLU 180 Result Comment: MANAGEMENT OF PATIENT CARE PER NURSING PROTOCOL Performed By: #### L501.080 #### [facility] Laboratory Point of Care [address] [place] [address] BEDSIDE GLUCOSE Collected: 08/07/2018 Status: F Source: [place] 11:26 AM [facility] REPOSITORY TYPE CODE TESTS RESULT OUT OF REFERENCE UNITS RANGE LAB L501.080 70-110 mg/dL High BEDSIDE GLU 119 Result Comment: Dr Germain Followed MANAGEMENT OF PATIENT CARE PER NURSING PROTOCOL Performed By: #### L501.080 #### [facility] Laboratory Point of Care [address] [place] [address] CBC W/DIFF, AUTOMATED Collected: 08/07/2018 Status: F Source: [place] 6:46 AM [facility] REPOSITORY TYPE CODE TESTS RESULT OUT OF RANGE REFERENCE UNITS LAB L100.1000 4.4-11.0 K/mm3 Normal WBC 9.6 LAB L100.1200 4.6-6.2 M/mm3 Low RBC 3.53 LAB L100.1300 13.0-16.5 g/dl Low HGB 10.9 LAB L100.1400 40-54 % Low HCT 33.2 LAB L100.1500 80-94 fL High MCV 94.1 LAB L100.1600 27.0-32.0 pg Normal MCH 30.9 LAB L100.1700 32-36 g/gl Normal MCHC 32.8 LAB L100.1810 11.6-14.6 % Normal RDW CV 13.3 LAB L100.1820 35.1-43.9 fl High RDW SD 45.8 LAB L100.1900 150-450 K/mm3 Normal PLT 248 LAB L100.2000 6.2-12.0 fl Normal MPV 9.2 LAB L100.2100 47-70 % High NEUT% 82.0 LAB L100.2200 19-41 % Low LY% 7.4 LAB L100.2300 0-10 % Normal MONO% 9.7 LAB L100.2400 0-5 % Normal EO% 0.6 LAB L100.2500 0-1 % Normal BASO% 0.1 LAB L100.2550 0.0-0.9 % Normal IM GRAN % 0.200 Result Comment: IG% - Immature Granulocytes (promyelocytes, myelocytes and metamyelocytes) > 1% indicates that a LEFT SHIFT is Present. LAB L100.2620 2.0-7.7 X10 3/uL High Absolute Neut 7.8 LAB L100.2720 0.83-4.51 X10 3/ul Low Absolute Lymph 0.71 Performed By: #### L100.0100 #### [facility] Laboratory [address] [place], [address] BASIC METABOLIC Collected: 08/07/2018 Status: F Source: [place] PROFILE (BMP) 6:46 AM [facility] REPOSITORY TYPE CODE TESTS RESULT OUT OF RANGE REFERENCE UNITS LAB L501.0100 74-106 mg/dL High GLU 160 Result Comment: Fasting Glucose result greater than or equal to 126 mg/dL suggests DIABETES MELLITUS per A.D.A. criteria. Please note revised GLUCOSE reference range effective 2017. LAB L501.1000 7-18 mg/dL High BUN 19 LAB L501.1100 0.70-1.30 mg/dL Normal CREAT,SERUM 1.05 Result Comment: The validity of the calculated GFR AND GFRAA in patients over 70 years has not been determined. Clinical correlation is essential. LAB L501.1110 >60 mL/min Normal EST GFR 72 Result Comment: Non- GFR Calc LAB L501.1115 >60 mL/min Normal EST GFR - AA 87 Result Comment: GFR Calc LAB L501.1255 ml/min Normal Estimated CRCL 56.11 LAB L501.1300 10-20 RATIO Normal BUN/CRE 18.1 LAB L501.2200 8.5-10 mg/dL Low .1 CA 8.4 LAB L501.5300 136-14 mmol/L Normal 5 NA 139 LAB L501.5600 3.5-5. mmol/L Normal 1 K 3.9 LAB L501.5900 98-107 mmol/L Normal CL 103 LAB L501.6100 21.0-3 mmol/L Normal 2.0 CO2 29.0 LAB L501.6200 5-15 Normal GAP 7 Performed By: #### L500.2500 #### [facility] Laboratory [address] [place], [address] BEDSIDE GLUCOSE Collected: 08/07/2018 Status: F Source: [place] 6:36 AM [facility] REPOSITORY TYPE CODE TESTS RESULT OUT OF REFERENCE UNITS RANGE LAB L501.080 70-110 mg/dL High BEDSIDE GLU 153 Result Comment: MANAGEMENT OF PATIENT CARE PER NURSING PROTOCOL Performed By: #### L501.080 #### [facility] Laboratory Point of Care [address] [place], [place] [address] BEDSIDE GLUCOSE Collected: 08/06/2018 Status: F Source: [place] 9:05 PM [facility] REPOSITORY TYPE CODE TESTS RESULT OUT OF REFERENCE UNITS RANGE LAB L501.080 70-110 mg/dL High BEDSIDE GLU 146 Result Comment: MANAGEMENT OF PATIENT CARE PER NURSING PROTOCOL Performed By: #### L501.080 #### [facility] Laboratory Point of Care [address] [place], [place] [address] BEDSIDE GLUCOSE Collected: 08/06/2018 Status: F Source: [place] 5:02 PM [facility] REPOSITORY TYPE CODE TESTS RESULT OUT OF REFERENCE UNITS RANGE LAB L501.080 70-110 mg/dL High BEDSIDE GLU 150 Result Comment: MANAGEMENT OF PATIENT CARE PER NURSING PROTOCOL Performed By: #### L501.080 #### [facility] Laboratory Point of Care [address] [place] [address] HISTORY AND PHYSICAL Observed: 08/06/2018 Status: F Source: [place] EXAM 5:00 PM [facility] REPOSITORY [facility] Medical Records Department [address] [place] [address] History and Physical 08/06/18 1645 MR#: [id number] Acct: [id number] Name: PANDA FLOYD Rep #: [id number] : 1940 78 From: Nima Gamez MD PCP: Man Cha MD Status: ADM IN Y Location: [place] [address] Problem List (1) Right rotator cuff tear arthropathy Status: Chronic (2) Diabetes mellitus Status: Chronic (3) Hypertension Status: Chronic (4) Gout Status: Chronic (5) Osteoarthritis Status: Chronic (6) Chronic diastolic heart failure Status: Chronic (7) Kidney stones Status: Chronic (8) Atrial fibrillation Status: Chronic Qualifiers: History of Present Illness Date of Admission: 08/06/18 Chief Complaint: Here for rehabilitation, strengthening, prior to discharge home with spouse. The patient is a 78 year old Male with below past medical history admitted to hospital for left reverse total shoulder replacement 08/03/[address] Faulkner. 08/04/2018 Patient suffered fall while going to restroom due to unsteadiness, fall risk. 08/05/2018 On coumadin, INR subtherapeutic, recommend TCU. 08/06/2018 Admit to TCU with debility here for rehabilitation, strengthening, prior to discharge home with spouse. Past Medical History Past Medical History (Chronic Problems): Chronic Problems Atrial fibrillation (Chronic) Right rotator cuff tear arthropathy (Chronic) Diabetes mellitus (Chronic) Hypertension (Chronic) Gout (Chronic) Osteoarthritis (Chronic) Chronic diastolic heart failure (Chronic) Kidney stones (Chronic) Allergies No Known Allergies Allergy (Verified 07/22/18 15:08) Home Medications: Ambulatory Orders Medication Instructions Recorded Allopurinol 300 mg PO DAILY 07/23/15 Metformin HCl [Glucophage] 500 mg PO BIDCM 07/23/15 Albuterol Inhaler [Ventolin Hfa] 2 puff INHALATION Q4H PRN PRN 03/21/18 Surgical History: herniorrhaphy, total knee arthroplasty - Bilateral., - - Right wrist fracture, Kidney stones, Bilateral carpal tunnel release, back surgery. Psychiatric History: No pertinent psych hx Lives: Spouse/ Significant Other Smoking Status: Current some day smoker Tobacco Use: Cigarettes Alcohol: None Drugs: None - *Family History Maternal History Items: No pertinent history Paternal History Items: No pertinent history Review of Systems Constitutional: Denies: Chills, Fever, Weight Change HEENT: Denies: Head Aches, Sinus Congestion, Sinus Drainage Cardiovascular: Denies: Chest Pain, Palpitations Respiratory: Denies: Cough, Shortness of breath at rest, Sputum production Gastrointestinal: Reports: Abdominal Pain, Constipation. Denies: Nausea, Vomiting Genitourinary: Denies: Dysuria Musculoskeletal: Denies: Joint Pain, Joint Tenderness Skin: Denies: Rash, Wounds Neurological: Denies: Numbness, Tingling, Focal weakness Psychiatric: Denies: Anxiety, Depression, Homicidal Ideations, Suicidal Ideations Hematologic/ Lymphatic: Denies: Easy Bruising, Easy Bleeding VTE Information - Inpt Only VTE Present on Admission: No VTE Mechan Device Prophylaxis: Knee High ALBERTO Hose VTE Pharm Prophylaxis ordered?: No Reason prophylaxis not ordered:: Treatment Not Indicated - Physical Exam General: Alert, Oriented x3, Cooperative HEENT: Atraumatic, PERRLA, EOMI, Normocephalic Neck: Supple, No JVD, Negative Carotid Bruits Lungs: Clear to auscultation, Normal air movement Cardiovascular: Regular rate, No murmurs Abdomen: Bowel Sounds Present, Soft, Non Tender Extremities: No edema, Capillary Refill Less than 3 Seconds Skin: No rashes, No breakdown Musculoskeletal: No Tenderness to Palpation of Joints or Extremities, - - Left shoulder Ultra Sling, dressing clean, dry, intact. Neurological: Cranial nerves II-XII grossly intact Psych/Mental Status: Normal Affect, Appropriate Vital Signs Temp Pulse Resp BP Pulse Ox 98.2 F 97 20 H 111/76 94 08/06/18 16:00 08/06/18 16:00 08/06/18 16:00 08/06/18 16:00 08/06/18 16:00 Oxygen Delivery Method Room Air Weight: 122.833 kg Body Mass Index (BMI) 39.9 Finger Stick Blood Glucose 196 Assessment/Plan 78 year old male with below past medical history hospitalized for left reverse total shoulder replacement 08/03/[address] Faulkner, complicated by fall, admitted to TCU with debility, here for rehabilitation, strengthening, prior to discharge home with spouse. * Debility - PT/OT. * Pain - Tylenol 1000MG Q8H PRN mild pain, Oxycodone 5-10MG Q4H PRN moderate to severe pain. * Bowel - Miralax 17GM daily, Senna/colace 2 tablets BID, Dulcolax 10MG PO daily PRN, Mag citrate 300ML PO x 1 dose for clean out, may need Soap Suds Enema. * Pneumonia vaccination - Administer Prevnar 13 and/or Pneumovax 23 as necessary. * DVT prophylaxis - Not necessary, already on warfarin. * Shortness of breath - Albuterol 2 puffs Q4H PRN. * Gout - Allopurinol 300MG daily. * Hypertension - Metoprolol succinate 50MG daily, Amlodipine 5MG daily, HCTZ 12.5MG daily. * Chronic diastolic heart failure - Metoprolol succinate 50MG daily, Lasix 20MG MWF. * Nutrition - Glucerna Shake 120ML 4x/day. * Diabetes Mellitus II - Metformin 500MG BID. * Hypokalemia - K-Dur 20MEQ daily. * Overactive Bladder - Tolterodine 4MG daily. * Atrial Fibrillation - Metoprolol succinate 50MG daily, Warfarin 2.5/3MG alternating, follow INR. 08/06/18 1700 <Electronically signed by Nima Gamez MD> Date Nima Gamez MD Cosigner Signature: Date (if applicable) CC: Man Cha MD; Nima Gamez MD Signed BEDSIDE GLUCOSE Collected: 08/06/2018 Status: F Source: [place] 11:35 AM [facility] REPOSITORY TYPE CODE TESTS RESULT OUT OF REFERENCE UNITS RANGE LAB L501.080 70-110 mg/dL High BEDSIDE GLU 156 Result Comment: MANAGEMENT OF PATIENT CARE PER NURSING PROTOCOL Performed By: #### L501.080 #### [facility] Laboratory Point of Care [facility] [place] [address] CBC W/DIFF, AUTOMATED Collected: 08/06/2018 Status: F Source: [place] 7:30 AM [facility] REPOSITORY TYPE CODE TESTS RESULT OUT OF RANGE REFERENCE UNITS LAB L100.1000 4.4-11.0 K/mm3 Normal WBC 10.1 LAB L100.1200 4.6-6.2 M/mm3 Low RBC 3.48 LAB L100.1300 13.0-16.5 g/dl Low HGB 10.9 LAB L100.1400 40-54 % Low HCT 32.4 LAB L100.1500 80-94 fL Normal MCV 93.1 LAB L100.1600 27.0-32.0 pg Normal MCH 31.3 LAB L100.1700 32-36 g/gl Normal MCHC 33.6 LAB L100.1810 11.6-14.6 % Normal RDW CV 13.3 LAB L100.1820 35.1-43.9 fl High RDW SD 44.9 LAB L100.1900 150-450 K/mm3 Normal PLT 207 LAB L100.2000 6.2-12.0 fl Normal MPV 9.3 LAB L100.2100 47-70 % High NEUT% 81.2 LAB L100.2200 19-41 % Low LY% 9.2 LAB L100.2300 0-10 % Normal MONO% 8.4 LAB L100.2400 0-5 % Normal EO% 0.9 LAB L100.2500 0-1 % Normal BASO% 0.1 LAB L100.2550 0.0-0.9 % Normal IM GRAN % 0.200 Result Comment: IG% - Immature Granulocytes (promyelocytes, myelocytes and metamyelocytes) > 1% indicates that a LEFT SHIFT is Present. LAB L100.2620 2.0-7.7 X10 3/uL High Absolute Neut 8.2 LAB L100.2720 0.83-4.51 X10 3/ul Normal Absolute Lymph 0.93 Performed By: #### L100.0100 #### [facility] [address] [place], [address] PROTHROMBIN TIME W/INR Collected: 08/06/2018 Status: F Source: [place] 7:30 AM [facility] REPOSITORY TYPE CODE TESTS RESULT OUT OF RANGE REFERENCE UNITS LAB L300.4150 11.7-14.9 SECONDS High PROTIME 15.9 LAB L300.4200 Normal INR 1.3 Performed By: #### L300.3900 #### [facility] [address] [place], [address] BASIC METABOLIC Collected: 08/06/2018 Status: F Source: [place] PROFILE (BMP) 7:30 AM [facility] REPOSITORY TYPE CODE TESTS RESULT OUT OF RANGE REFERENCE UNITS LAB L501.0100 74-106 mg/dL High GLU 140 Result Comment: Fasting Glucose result greater than or equal to 126 mg/dL suggests DIABETES MELLITUS per A.D.A. criteria. Please note revised GLUCOSE reference range effective 2017. LAB L501.1000 7-18 mg/dL High BUN 20 LAB L501.1100 0.70-1.30 mg/dL Normal CREAT,SERUM 1.12 Result Comment: The validity of the calculated GFR AND GFRAA in patients over 70 years has not been determined. Clinical correlation is essential. LAB L501.1110 >60 mL/min Normal EST GFR 67 Result Comment: Non- GFR Calc LAB L501.1115 >60 mL/min Normal EST GFR - AA 81 Result Comment: GFR Calc LAB L501.1255 ml/min Normal Estimated CRCL 52.60 LAB L501.1300 10-20 RATIO Normal BUN/CRE 17.9 LAB L501.2200 8.5-10 mg/dL Low .1 CA 8.2 LAB L501.5300 136-14 mmol/L Normal 5 NA 140 LAB L501.5600 3.5-5. mmol/L Low 1 K 3.2 LAB L501.5900 98-107 mmol/L Normal CL 103 LAB L501.6100 21.0-3 mmol/L Normal 2.0 CO2 27.0 LAB L501.6200 5-15 Normal GAP 10 Performed By: #### L500.2500 #### [facility] [address] [place], [address] BEDSIDE GLUCOSE Collected: 08/06/2018 Status: F Source: [place] 6:57 AM [facility] REPOSITORY TYPE CODE TESTS RESULT OUT OF REFERENCE UNITS RANGE LAB L501.080 70-110 mg/dL High BEDSIDE GLU 148 Result Comment: MANAGEMENT OF PATIENT CARE PER NURSING PROTOCOL Performed By: #### L501.080 #### [facility] Point of Care [address] [place] [address] BEDSIDE GLUCOSE Collected: 08/05/2018 Status: F Source: [place] 10:03 PM [facility] REPOSITORY TYPE CODE TESTS RESULT OUT OF REFERENCE UNITS RANGE LAB L501.080 70-110 mg/dL High BEDSIDE GLU 177 Result Comment: MANAGEMENT OF PATIENT CARE PER NURSING PROTOCOL Performed By: #### L501.080 #### [facility] Point of Care [address] [place] [address] BEDSIDE GLUCOSE Collected: 08/05/2018 Status: F Source: [place] 6:01 PM [facility] REPOSITORY TYPE CODE TESTS RESULT OUT OF REFERENCE UNITS RANGE LAB L501.080 70-110 mg/dL High BEDSIDE GLU 137 Result Comment: MANAGEMENT OF PATIENT CARE PER NURSING PROTOCOL Performed By: #### L501.080 #### [facility] Point of Care [address] [place] [address] BEDSIDE GLUCOSE Collected: 08/05/2018 Status: F Source: [place] 11:18 AM [facility] REPOSITORY TYPE CODE TESTS RESULT OUT OF REFERENCE UNITS RANGE LAB L501.080 70-110 mg/dL High BEDSIDE GLU 149 Result Comment: MANAGEMENT OF PATIENT CARE PER NURSING PROTOCOL Performed By: #### L501.080 #### [facility] Point of Care [address] [place] [address] BEDSIDE GLUCOSE Collected: 08/05/2018 Status: F Source: [place] 6:41 AM [facility] REPOSITORY TYPE CODE TESTS RESULT OUT OF REFERENCE UNITS RANGE LAB L501.080 70-110 mg/dL High BEDSIDE GLU 117 Result Comment: MANAGEMENT OF PATIENT CARE PER NURSING PROTOCOL Performed By: #### L501.080 #### [facility] Point of Care [address] [place] [address] BEDSIDE GLUCOSE Collected: 08/04/2018 Status: F Source: [place] 10:17 PM [facility] REPOSITORY TYPE CODE TESTS RESULT OUT OF REFERENCE UNITS RANGE LAB L501.080 70-110 mg/dL High BEDSIDE GLU 133 Result Comment: MANAGEMENT OF PATIENT CARE PER NURSING PROTOCOL Performed By: #### L501.080 #### [facility] Point of Care [address] [place] [address] BEDSIDE GLUCOSE Collected: 08/04/2018 Status: F Source: [place] 4:12 PM [facility] REPOSITORY TYPE CODE TESTS RESULT OUT OF REFERENCE UNITS RANGE LAB L501.080 70-110 mg/dL High BEDSIDE GLU 155 Result Comment: MANAGEMENT OF PATIENT CARE PER NURSING PROTOCOL Performed By: #### L501.080 #### [facility] Point of Care [address] [place] [address] BEDSIDE GLUCOSE Collected: 08/04/2018 Status: F Source: [place] 11:48 AM [facility] REPOSITORY TYPE CODE TESTS RESULT OUT OF REFERENCE UNITS RANGE LAB L501.080 70-110 mg/dL High BEDSIDE GLU 166 Result Comment: MANAGEMENT OF PATIENT CARE PER NURSING PROTOCOL Performed By: #### L501.080 #### [facility] Point of Care [address] [place] [address] DISCHARGE INSTRUCTION Observed: 08/04/2018 Status: F Source: [place] 10:47 AM [facility] REPOSITORY [facility] Medical Records Department [address] [place] [address] Instructions for Home/Discharge Instructions 08/04/18 1045 MR#: [id number] Acct: [id number] Name: PANDA FLOYD Rep #: [id number] : 1940 78 From: Dennis Page PA-C PCP: Man Cha MD Status: ADM IN Discharge Diet: 1800 Calorie Control Diet Discharge Activity: May Not Drive May shower in (days): 1 - Turned dressing away from water Ice area for (Minutes): 20 - Ice area for 20 minutes each hour while awake Weight Bearing Status: Weight bearing as tolerated Keep extremity elevated above heart level: Operative Extremity Call your doctor if your incision/area has: Continuous Slow Oozing, Sudden Increased Bleeding, Increased Pain/ Swelling, Increased Redness, Foul Smelling Discharge Call your doctor if you observe: Fever of 101 or Higher, Coldness, Increased Pain, Numbness or Tingling, Change in Color Remove Dressing in (days):: 4 - Okay to remove on August 08, 2018 Additional Instructions: Follow [facility] postop instructions Allergies/Adverse Reactions: Allergies No Known Allergies Allergy (Verified 07/22/18 15:08) Medications to take at Discharge Allopurinol 300 mg PO DAILY 07/23/15 Metformin HCl [Glucophage] 500 mg PO BIDCM 07/23/15 Albuterol Inhaler [Ventolin Hfa] 2 puff INHALATION Q4H PRN PRN 03/21/18 Amlodipine [Norvasc] 5 mg PO DAILY 03/21/18 Furosemide [Lasix] 20 mg PO MOWEFR 03/21/18 Metoprolol Succinate [Toprol Xl] 50 mg PO DAILY 03/21/18 Oxybutynin Chloride [Ditropan Xl] 10 mg PO BID 03/21/18 Warfarin [Coumadin] 2.5 mg PO QODAY 03/21/18 Warfarin [Coumadin] 3 mg PO QODAY 03/21/18 hydroCHLOROthiazide [Hydrochlorothiazide] 12.5 mg PO DAILY 03/21/18 Magnesium 250 mg PO DAILY 07/22/18 Potassium Chloride [Klor-Con] 20 meq PO DAILY 07/22/18 Vitamin B Complex 1 each PO DAILY 07/22/18 Acetaminophen [Tylenol Extra Strength] 1,000 mg PO Q4H PRN PRN #100 tab 08/04/18 Oxycodone [Oxyir] 5 - 10 mg PO Q4H PRN PRN 4 Days #30 tab 08/04/18 Senna/Docusate Sodium [Senokot-S] 2 tab PO BID PRN PRN #20 tab 08/04/18 The following prescriptions were given: Acetaminophen [Tylenol Extra Strength] 1,000 mg PO Q4H PRN PRN #100 tab PRN Reason: Pain Oxycodone [Oxyir] 5 - 10 mg PO Q4H PRN PRN 4 Days #30 tab PRN Reason: Pain Senna/Docusate Sodium [Senokot-S] 2 tab PO BID PRN PRN #20 tab PRN Reason: Constipation Primary Care Physician: Man Cha MD [Primary Care Provider] - Test Results: Test results from this visit will be discussed in further detail at your follow-up appointment, if applicable. Please Follow Up With: [facility] physical therapy When: 08/18/18 @ 3:30 pm with [place] Please Follow Up With: Dennis Page PA-C When: 08/18/18 @ 2:15 pm 08/04/18 1047 <Electronically signed by Dennis Page PA-C> Date Dennis Page PA-C CC: Felipa Adames MD; Man Cha MD PROTHROMBIN TIME W/INR Collected: 08/04/2018 Status: F Source: [place] 7:52 AM [facility] REPOSITORY TYPE CODE TESTS RESULT OUT OF RANGE REFERENCE UNITS LAB L300.4150 11.7-14.9 SECONDS High PROTIME 15.8 LAB L300.4200 Normal INR 1.3 Performed By: #### L300.3900 #### [facility] [address] [place], [address] SHOULDER MIN 2 VIEWS Observed: 08/04/2018 Status: F Source: [place] 6:53 AM [facility] REPOSITORY [facility] Imaging Services [address] [place] [address] Shoulder min 2 Views MR#: [id number] Acct: [id number] Name: PANDA FLOYD Rep #: [id number] : 1940 M 78 From: Dong Multani MD PCP: Man Cha MD Status: ADM IN Study: Shoulder min 2 Views Date of Exam: 08/04/18 Exam# [id number] Ordering Dr: Vick Faulkner MD STUDY: X-RAY - LEFT SHOULDER REASON FOR EXAM: Male, 78 years old. Recent shoulder replacement. Pain following fall. TECHNIQUE: 2 view(s) of the shoulder. COMPARISON: Comparison is made with prior study dated August 03, 2018. FINDINGS: The patient is status post left shoulder replacement of the reverse type. There is good alignment. Postoperative soft tissue swelling. Normal visualized pulmonary apex. RAD/Shoulder min 2 Views IMPRESSION: Status post left shoulder replacement. There has been no change. Electronically Signed: Dong Multani MD at 10:46 EST Tel [phone], Service support , CC: Man Cha MD; Vick Faulkner MD Business Support Administrator: Signed BEDSIDE GLUCOSE Collected: 08/04/2018 Status: F Source: [place] 6:44 AM [facility] REPOSITORY TYPE CODE TESTS RESULT OUT OF REFERENCE UNITS RANGE LAB L501.080 70-110 mg/dL High BEDSIDE GLU 140 Result Comment: MANAGEMENT OF PATIENT CARE PER NURSING PROTOCOL Performed By: #### L501.080 #### [facility] Point of Care [address] [place], [place] [address] BEDSIDE GLUCOSE Collected: 08/03/2018 Status: F Source: [place] 10:12 PM [facility] REPOSITORY TYPE CODE TESTS RESULT OUT OF REFERENCE UNITS RANGE LAB L501.080 70-110 mg/dL High BEDSIDE GLU 118 Result Comment: MANAGEMENT OF PATIENT CARE PER NURSING PROTOCOL Performed By: #### L501.080 #### [facility] Point of Care [address] [place], [place] [address] BEDSIDE GLUCOSE Collected: 08/03/2018 Status: F Source: [place] 4:25 PM [facility] REPOSITORY TYPE CODE TESTS RESULT OUT OF REFERENCE UNITS RANGE LAB L501.080 70-110 mg/dL High BEDSIDE GLU 169 Result Comment: MANAGEMENT OF PATIENT CARE PER NURSING PROTOCOL Performed By: #### L501.080 #### [facility] Point of Care [address] [place], [place] [address] BEDSIDE GLUCOSE Collected: 08/03/2018 Status: F Source: [place] 11:54 AM [facility] REPOSITORY TYPE CODE TESTS RESULT OUT OF REFERENCE UNITS RANGE LAB L501.080 70-110 mg/dL High BEDSIDE GLU 180 Result Comment: MANAGEMENT OF PATIENT CARE PER NURSING PROTOCOL Performed By: #### L501.080 #### [facility] Point of Care [address] [place], [place] [address] BEDSIDE GLUCOSE Collected: 08/03/2018 Status: F Source: [place] 10:09 AM [facility] REPOSITORY TYPE CODE TESTS RESULT OUT OF REFERENCE UNITS RANGE LAB L501.080 70-110 mg/dL High BEDSIDE GLU 196 Result Comment: MANAGEMENT OF PATIENT CARE PER NURSING PROTOCOL Performed By: #### L501.080 #### [facility] Point of Care [address] [place], [place] [address] OPERATIVE REPORT Observed: 08/03/2018 Status: F Source: [place] 8:46 AM [facility] Medical Records Department [address] [place] [address] Operative Report 08/03/18 0841 MR#: [id number] Acct: [id number] Name: PANDA FLOYD Rep #: [id number] : 1940 78 From: Vick Faulkner MD PCP: Man Cha MD Status: ADM IN Y Location: MS3 [id number] Report of Operation Date of Procedure: 08/03/18 Pre-Operative Diagnosis: Left shoulder cuff tear arthropathy Post-Operative Diagnosis: Left shoulder cuff tear arthropathy Surgery/Procedure Performed:: Left reverse total shoulder replacement Description of Surgical Findings:: Stable shoulder vice president research: Renata Salamanca Type of Anesthesia:: General Anesthesiologist: Jakob Livingston Special Medications: 2 g Ancef, 2 g TXA 1 minute lavage in joint at end of case, 10 mg Decadron, joint cocktail (5 mg Duramorph, 30 mL of 0.5% Ropivicaine, 1000 units of epinephrine, 30 mg of Toradol) vancomycin IV throughout the case Specimen's removed: Bony cuts Estimated Blood Loss (mL): 150 Fluids Replaced: 600 mL crystalloid Description of Procedure: Components used 1. glenoid baseplate for reverse TSA 2. 36, 2 mm eccentric, +2 mm Glenosphere 3. 36 mm, 4mm humeral liner 4. Reverse TSA humeral adapter tray 36, 4mm 5. Humeral stem primary press-fit 4mm size Brief history/Operative indications: 78 yo m with history of l shoulder pain and cuff tear arthropathy. Patient failed conservative measures as mentioned in the H AND P. After discussion of risk and benefits of reverse total shoulder replacement including but not limited to blood loss, DVTs, PEs, nerve vessel damage, infection, general risk of anesthesia including loss of life, instability and stiffness patient demonstrating understanding wish to proceed was able to sign informed consent. Medical clearance was obtained. Procedure: On the date of the procedure, patient's L upper extremity was marked in the preoperative area. Patient was taken back to the operating room where they were placed on the table in the supine position. Anesthesia assumed control of the C-spine and airway, then administered anesthetic. All bony prominences were identified well-padded, the head was secured and the patient was placed in the beachchair position at about 35 inclination. Anesthesia remained in control of the C-spine airway throughout the remainder of the procedure. Patient was then appropriately fastened to the table and the L upper extremity was prepped in a sterile fashion. The surgeons then scrubbed. Upon reentering the room, the L upper extremity was draped in a sterile fashion and the incision was marked out. Timeout was called, everyone agreed upon the side, the site, the procedure to be performed, patient identity and antibiotics given. Incision was taken down through skin and subcutaneous tissue, fat down to fascia. The stripe of the deltopectoral interval and cephalic vein were identified and blunt dissection was used to retract the deltoid. The cephalic vein was retracted laterally. Clavipectoral fascia was then incised and a cobra retractor was placed in the wound. The proximal one third of the pectoralis major insertion was released. Pectoralis tendon insertion was used to tenodesed the biceps tendon which was identified in the bicipital groove. Tenodesis was done with #1 Vicryl. Proximally we followed the biceps tendon after transecting it into the rotator interval. The rotator interval was split and the arm was externally rotated. The split was 1 cm medial to the bicipital groove. Subscapularis tendon was released. We released down the anterior portion of the humeral head and a phan elevator was used to release the inferior portion of the humeral head. The arm was externally rotated and the shoulder was dislocated. The [employer] humeral head cutting guide was used to make humeral cut. This was done at 20 retroversion. Once his humeral head cut was made humerus was retracted out of the way and the glenoid was exposed. After exposing the glenoid, the labrum and the remaining proximal biceps were debrided. At this time we are able to view the entire outer edge of the glenoid. A central pin was placed we sequentially reamed over this central pin to 36mm. Once this was completed the central pedicle was drilled. The glenoid baseplate was impacted into place. Wound was closely irrigated out with normal saline we then drilled sequentially for 2 screws. Screws were placed superiorly and inferiorly and tightened down the screws. Once the screws were appropriately tightened into place the glenoid baseplate was compressed against the exposed subchondral bone. A 36 mm glenosphere was impacted into place engaging the [employer] taper. Attention was then turned towards the humerus. The humerus was again externally rotated exposing the proximal portion of the humerus. Central canal finder was then used to open up the canal. We reamed to a 16mm reamer. We then broached to a 16mm stem. We trialed the 4mm liner, with the 4mm humeral baseplate. We obtained an adequate reduction at this time with a nice stable shoulder. Good internal rotation to the gluteus, forward elevation to 140 , external rotation to 20 . Final components were then assembled on the back table, trials were removed and the wound was copiously irrigated with normal saline after dislocating the shoulder. Once the final components were assembled they were impacted into place. Shoulder was then reduced and found to be stable with good range of motion. Subscapularis tendon was not repairable. The wound was then copiously irrigated out with a 1 L normal saline lavage. The deltopectoral fascia was then closed using #1 Vicryl skin was closed using 2-0 Vicryl interrupted sutures and final skin closure was done with 3- 0 Monocryl. Steri-Strips are placed for final skin closure. Sterile dressing was placed patient was then placed in a sling and awakened by anesthesia. Patient was then transferred to the PACU for recovery. Postoperative plan: Patient will be admitted to the hospital overnight. They will get physical therapy starting in 2 weeks with normal postoperative regimen. Patient will be placed on asa daily for DVT prophylaxis. The first postoperative appointment will be in 2 weeks for wound check and initiation of phase 1 physical therapy. Grafts/Implants Used: Sloan reunion reverse total shoulder - Complications None - Admit VTE Documentation VTE Present on Admission: No VTE Mechan Device Prophylaxis: SCD's, Thigh High ALBERTO Hose VTE Pharm Prophylaxis ordered?: Yes 08/03/18 0846 <Electronically signed by Vick Faulkner MD> Date Vick Faulkner MD CC: Man Cha MD; Vick Faulkner MD Signed SHOULDER ONE VIEW Observed: 08/03/2018 Status: F Source: [place] 7:12 AM [facility] REPOSITORY [facility] Imaging Services [address] [place] [address] Shoulder One View MR#: [id number] Acct: [id number] Name: PANDA FLOYD Rep #: [id number] : 1940 M 78 From: Dong Multani MD PCP: Man Cha MD Status: ADM IN Study: Shoulder One View Date of Exam: 08/03/18 Exam# [id number] Ordering Dr: Vick Faulkner MD STUDY: X-RAY - LEFT SHOULDER REASON FOR EXAM: Male, 78 years old. Status post left shoulder replacement. TECHNIQUE: 2 view(s) of the shoulder. COMPARISON: Comparison is made with prior CT scan of the left shoulder dated June 21, 2018. FINDINGS: The patient is status post left reverse shoulder replacement. There is good alignment. Postoperative soft tissue changes. RAD/Shoulder One View IMPRESSION: Status post left shoulder replacement. There is good alignment. Postoperative soft tissue changes. Electronically Signed: Dong Multani MD at 12:18 EST Tel [phone], Service support , CC: Man Cha MD; Vick Faulkner MD Business Support Administrator: Signed PROTIME W/INR Collected: 08/03/2018 Status: F Source: [place] 5:58 AM [facility] REPOSITORY TYPE CODE TESTS RESULT OUT OF RANGE REFERENCE UNITS LAB L9200.1001 11.9-14.4 SEC Normal PROTIME ISTAT 14.0 Result Comment: Reference Range 11.9 - 14.4 LAB L9200.2000 Normal INR ISTAT 1.20 Result Comment: Critical Value > 3.5 Performed By: #### L9200.0000 #### [facility] Point of Care [address] [place], [place] [address] BEDSIDE GLUCOSE Collected: 08/03/2018 Status: F Source: [place] 5:56 AM [facility] REPOSITORY TYPE CODE TESTS RESULT OUT OF REFERENCE UNITS RANGE LAB L501.080 70-110 mg/dL High BEDSIDE GLU 146 Result Comment: MANAGEMENT OF PATIENT CARE PER NURSING PROTOCOL Performed By: #### L501.080 #### [facility] Point of Care [address] [place] [address] ALBUMIN, SERUM Collected: 07/27/2018 Status: F Source: [place] 12:13 PM [facility] REPOSITORY TYPE CODE TESTS RESULT OUT OF RANGE REFERENCE UNITS LAB L501.1800 3.2-5.0 g/dL Normal ALB 3.4 Performed By: #### L501.1800 #### [facility] [address] [place], [address] HISTORY AND PHYSICAL Observed: 07/22/2018 Status: F Source: [place] EXAM 10:54 PM [facility] REPOSITORY [facility] Medical Records Department [address] [place] [address] History and Physical 07/22/18 2253 MR#: [id number] Acct: [id number] Name: PANDA FLOYD Rep #: [id number] : 1940 78 From: Dennis Page PA-C PCP: Man Cha MD Status: PRE IN Y [facility] [facility] History and Physical DATE OF SURGERY: 08/03/2018 SCHEDULED PROCEDURE: Left Reverse Total Shoulder Arthroplasty HISTORY OF PRESENT ILLNESS: This is an 78-year-old male whose been having ongoing pain in his left shoulder for several years. Patient does report having an injury years ago when he tripped and fell. He states over the past several months it has progressively increased. Patient has difficult time and pain with activities overhead. Patient has limited motion on the left side when compared to his right dominant side. X-rays do reveal severe rotator cuff arthropathy on the left shoulder. After failing conservative measures and discussing treatment options with Dr. Vick Faulkner, the patient would like to proceed with a reverse left total shoulder arthroplasty. Patient does have a medical history pertinent for history of atrial fibrillation in which she underwent a cardioversion approximately 2-3 months ago. Patient has been on Coumadin. He has been treated and seen by his is architect Dr. Chin. We have obtain surgical clearance from the is architect and able to stop the Coumadin 3-5 days prior to surgery. We will also obtain surgical clearance from the primary care physician. Patient also has medical history pertinent for hypertension, gout, type 2 diabetes mellitus. Patient currently denies any recent chest pain, shortness of breath, fevers chills. REVIEW OF SYSTEMS: ROS: Const: Denies change in appetite, fever and weight change. CV: Reports irregular heartbeat, but denies chest pain and heart murmur. Resp: Denies cough, pneumonia, shortness of breath, tuberculosis and wheezing. GI: Denies constipation, diarrhea, heartburn, nausea, rectal itching, bloody stools and vomiting. : Denies incontinence. Musculo: Reports leg swelling, trouble walking and weakness, but denies pain. Skin: Denies Raynaud's, history of shingles and tattoo. Neuro: Reports difficulty with balance and numbness/tingling but denies ambulatory dysfunction, dizziness and tremor. Psych: Denies anxiety, insomnia and stress. Rowdy/Lymph: Denies anemia, bleeding/bruising tendency and past transfusion. Reviewed, no changes. PAST MEDICAL HISTORY: Advance Care Plan: Other Directive, POA Effective Date: 06/16/2018 Other Directive, LIVING WILL Effective Date: 06/16/2018 PMH: Medical Problems: Arthritis, Congestive Heart Failure (CHF), Diabetes, Gout, High Blood Pressure, Kidney Stones Accidents: Fracture - RT WRIST---1953 Surgical Hx: Hernia Repair - (2009) Kidney Stones - (1999) RT CTR, LT CTR RT TKR - (2003) LT TKR - (2009) Back SX - (2009) Anesthesia Complications: None Assistive Devices: Cane Reviewed, no changes. SOCIAL HISTORY: SH: Marital: .Occupation: Retired.Work Status: Retired.Hand Dominance: Right-handed. Personal Habits: Cigarette Use: Light tobacco smoker (10 or fewer cigarettes/day) - PIPE.Smokeless Tobacco: Never Used Smokeless Tobacco.Alcohol: Denies use.Drug Use: Denies Use.Enjoy Exercising: Never Exercises. Reviewed, no changes. VITALS: Ht: 68.5 Wt: 252lb Wt k.307 BMI: 37.8 BP: 136/80 Pulse: 76 Resp: 16 T: 97.5 T: 36.4C ALLERGIES: No Known Drug Allergy MEDICATIONS: Metformin HCL 500 mg 1 by mouth twice a day, Atenolol 100 mg 1 tab PO daily, Allopurinol 100 mg 1 tab PO daily, Oxybutynin Chloride ER 20mg 1 tab PO daily, Amlodipine Besylate 5 mg 1 tab PO daily, Hydrochlorothiazide 12.5 mg 1 tab PO daily, Warfarin Sodium 2.5 mg 1 tab PO daily, Warfarin Sodium 1 mg 1 tab PO along with 2.5 mg every other day (3.5mg) PRE-OP EXAM: General appearance:NORMAL Other: Eyes: Conjunctivae and lids: NORMAL Pupils: ERR Ears, Nose, Mouth, and Throat: NORMAL Other: Inspection of lips, teeth and gums: NORMAL Other: Neck: Examination of neck: no masses noted. Respiratory: Assessment of respiratory effort: NORMAL Other: Auscultation of lungs: clear to auscultation no wheezes, rhonchi or rales. Cardiovascular: Auscultation of heart: regular rate and rhythm, no murmurs, gallops or rubs. Exam of carotid arteries: NORMAL Other: Gastrointestinal: Exam of abdomen: soft, nontender, nondistended bowel sounds present. PHYSICAL EXAMINATION: Left shoulder is cool to touch without erythema or signs of infection. Patient has tenderness to palpation diffusely left shoulder. Range of motion left shoulder internal rotation to beltline, forward elevation 50 actively, 140 passively, sensation intact to light touch axillary, radial, median, ulnar nerve distribution. Patient has 1/5 supraspinatus strength test. Motor intact to AIN, PA, and ulnar nerve. IMAGING STUDIES: X-rays of the left shoulder reveals severe glenohumeral joint space narrowing with superior migration of the humeral head and impaction lesions on the undersurface of the acromion and lateral greater tuberosity. This is consistent with severe rotator cuff arthropathy. There is associated subchondral sclerosis and osteophyte formation. IMPRESSION: 1. Severe left shoulder rotator cuff arthropathy 2. History of atrial fibrillation: Currently on Coumadin 3. Type 2 diabetes mellitus 4. History of gout 5. Hypertension 6. History of kidney stones. PLAN: Dr. Vick Faulkner did discuss and review with the patient all treatment options including surgical versus nonsurgical options. Patient does wish to proceed with the above-stated procedure. Potential risks, benefits, and complications of the procedure were discussed in detail including but not limited to , infection, nerve and blood vessel damage, persistent pain, numbness, tingling, paresthesias, blood clot, pulmonary embolism, and requirement for possible further surgery. The patient expressed full understanding and has no further questions for the doctor. Patient does agree to proceed with the above-stated procedure and has signed the surgery consent form. This dictation was created using voice recognition software. Phonetic and/or grammatical errors may exist.. ___ I have re-examined the patient. There are no clinical changes since date of exam. ___ See progress notes for changes. ___ Dictated on admission Date: Time: Signature: 07/22/182253 <Electronically signed by Dennis Page PA-C> Date Dennis Page PA-C Cosigner Signature: Date (if applicable) CC: Dennis JOHNSON; Man Cha MD Signed CBC W/DIFF, AUTOMATED Collected: 07/22/2018 Status: F Source: [place] 3:50 PM [facility] REPOSITORY TYPE CODE TESTS RESULT OUT OF RANGE REFERENCE UNITS LAB L100.1000 4.4-11.0 K/mm3 Normal WBC 9.4 LAB L100.1200 4.6-6.2 M/mm3 Normal RBC 4.87 LAB L100.1300 13.0-16.5 g/dl Normal HGB 15.2 LAB L100.1400 40-54 % Normal HCT 45.0 LAB L100.1500 80-94 fL Normal MCV 92.4 LAB L100.1600 27.0-32.0 pg Normal MCH 31.2 LAB L100.1700 32-36 g/gl Normal MCHC 33.8 LAB L100.1810 11.6-14.6 % Normal RDW CV 13.0 LAB L100.1820 35.1-43.9 fl Normal RDW SD 43.7 LAB L100.1900 150-450 K/mm3 Normal PLT 244 LAB L100.2000 6.2-12.0 fl Normal MPV 9.3 LAB L100.2100 47-70 % High NEUT% 78.2 LAB L100.2200 19-41 % Low LY% 14.2 LAB L100.2300 0-10 % Normal MONO% 6.7 LAB L100.2400 0-5 % Normal EO% 0.4 LAB L100.2500 0-1 % Normal BASO% 0.2 LAB L100.2550 0.0-0.9 % Normal IM GRAN % 0.300 Result Comment: IG% - Immature Granulocytes (promyelocytes, myelocytes and metamyelocytes) > 1% indicates that a LEFT SHIFT is Present. LAB L100.2620 2.0-7.7 X10 3/uL Normal Absolute Neut 7.3 LAB L100.2720 0.83-4.51 X10 3/ul Normal Absolute Lymph 1.33 Performed By: #### L100.0100 #### [facility] [address] [place], [place], [address] BASIC METABOLIC Collected: 07/22/2018 Status: F Source: [place] PROFILE (BMP) 3:50 PM [facility] REPOSITORY TYPE CODE TESTS RESULT OUT OF RANGE REFERENCE UNITS LAB L501.0100 74-106 mg/dL High GLU 164 Result Comment: Fasting Glucose result greater than or equal to 126 mg/dL suggests DIABETES MELLITUS per A.D.A. criteria. Please note revised GLUCOSE reference range effective 2017. LAB L501.1000 7-18 mg/dL High BUN 21 LAB L501.1100 0.70-1.30 mg/dL Normal CREAT,SERUM 1.29 Result Comment: The validity of the calculated GFR AND GFRAA in patients over 70 years has not been determined. Clinical correlation is essential. LAB L501.1110 >60 mL/min Low EST GFR 57 Result Comment: Non- GFR Calc LAB L501.1115 >60 mL/min Normal EST GFR - AA 69 Result Comment: GFR Calc LAB L501.1255 ml/min Normal Estimated CRCL 45.67 LAB L501.1300 10-20 RATIO Normal BUN/CRE 16.3 LAB L501.2200 8.5-10 mg/dL Normal .1 CA 8.9 LAB L501.5300 136-14 mmol/L Normal 5 NA 139 LAB L501.5600 3.5-5. mmol/L Normal 1 K 3.7 LAB L501.5900 98-107 mmol/L Normal CL 102 LAB L501.6100 21.0-3 mmol/L Normal 2.0 CO2 28.0 LAB L501.6200 5-15 Normal GAP 9 Performed By: #### L500.2500 #### [facility] [address] [place], [address] HEMOGLOBIN A1C Collected: 07/22/2018 Status: F Source: [place] 3:50 PM [facility] REPOSITORY TYPE CODE TESTS RESULT OUT OF RANGE REFERENCE UNITS LAB L501.9985 4.2-6.3 % High HGB A1C 7.0 Performed By: #### L501.9985 #### [facility] [address] [place], [address] Observed: 07/22/2018 Status: F Source: [place] MRSA/SAID SCREEN 3:50 PM [facility] REPOSITORY MRSA/SAID SCRN S. AUREUS S. aureus Negative MRSA MRSA Negative Performed By: #### M100.651 #### [facility] [address], [address] PROGRESS Observed: 07/12/2018 Status: COMPLETED Source: [place] 2:06 PM [facility] REPOSITORY HNO ID: [id number] Author: Juan Chin Service: (none) Author Type: Physician Type: Progress Notes Filed: 07/12/2018 3:28 PM Note Text: PERTINENT CARDIAC HISTORY Abnormal EKG Hypertension Hyperlipidemia Diabetes PAF - C-V >2 ADHERENCE TO GUIDELINES ANAMARIA-I or ARB for HF with prior LVEF<40 (NQF 0081) - CRF ASA or Plavix for ASHD (NQF 0067) - N/A Beta armando for ASHD with prior [place] or prior LVEF<40 (NQF 0070) - N/A Beta armando for HF with prior LVEF<40 (NQF 0083) - N/A ANAMARIA-I or ARB for ASHD with DM or prior LVEF<40 (NQF 0066) - N/A Statin therapy for ASHD or FHL or DM - N/A BMI documented and plan if >25 (NQ 0421) - lifestyle recommendation form Tobacco use screening and referral (NQ 0028) - lifestyle recommendation form Recommendation for whole food, plant based diet - lifestyle recommendation form CLINICAL IMPRESSION/PLAN: Panda Floyd is doing well. There is no evidence of unstable ischemic heart disease, decompensated heart failure or arrhythmia. Exercise tolerance has been improving. There is no cardiac contraindication to surgery as planned. Risk of perioperative cardiac complications is low to intermediate. No further studies are recommended. No guarantees were made. I have no objection to him holding the warfarin for a few days prior to surgery. It should be restarted as soon as possible following surgery. INR will need to be checked 1 week after restart. This is currently followed in primary care. He is advised to continue his current medication. I will see him in 6 months or as needed. If he has recurrent atrial fibrillation, we will need to consider an antiarrhythmic drug. Written and verbal health teaching given to patient, patient verbalizes understanding and agrees with treatment plan. DIAGNOSIS FOR VISIT: Preoperative cardiac risk assessment Hypertension PAF HISTORY OF PRESENT ILLNESS Panda Floyd returns for preoperative cardiac risk assessment. He reports improvement in exercise tolerance since cardioversion. He's had better control of his edema and takes Lasix infrequently. He's had no chest discomfort. He is able to walk up stairs without difficulty. He has had no edema, syncope, palpitations, TIAs, amaurosis or claudication. Shoulder surgery is planned in the near future. General anesthesia will be required. ALLERGIES: ALLERGIES No Known Allergies CURRENT OUTPATIENT MEDICATIONS: B Complex Vitamins capsule Take 1 capsule by mouth once daily. warfarin (COUMADIN) 3 mg tablet Take 1 tablet by mouth once daily. As directed furosemide (LASIX) 20 mg tablet Take 1 tablet by mouth once daily. As needed warfarin (COUMADIN) 2 mg tablet Take 1 tablet by mouth daily as directed. Or as directed metoprolol succinate ER (TOPROL XL) 50 mg 24 hr tablet Take 100 mg by mouth once daily. warfarin (COUMADIN) 5 mg tablet Take 1 tablet by mouth once daily. metFORMIN (GLUCOPHAGE) 500 mg tablet TAKE 1 TABLET BY MOUTH TWICE DAILY WITH MEALS albuterol HFA (VENTOLIN HFA) 90 mcg/actuation inhaler Inhale 2 Puffs as instructed every 4 hours as needed for Wheezing/Shortness of Breath. Hydrochlorothiazide 12.5 mg capsule Take 1 capsule by mouth once daily. oxybutynin ER (DITROPAN XL) 10 mg 24 hr tablet Take 2 tablets by mouth once daily. allopurinol (ZYLOPRIM) 300 mg tablet Take 1 tablet by mouth once daily. For gout. amLODIPine (NORVASC) 5 mg tablet Take 1 tablet by mouth once daily. aspirin, enteric coated (ECOTRIN LOW STRENGTH) 81 mg EC tablet Take 1 tablet by mouth once daily. PHYSICAL EXAMINATION: VITAL SIGNS: BP 146/84 Pulse 88 Wt 254 lb 1.6 oz (115.3kg) Chest: Clear to auscultation. Trachea is midline. Air entry is equal. Cardiac: Regular rhythm. S1 and S2 are normal. PMI is nondisplaced. ThThere is a soft systolic ejection murmur Carotids are brisk without bruits. JVP is less than 10 cm. Abdomen: Soft and nontender. There are no pulsatile masses or bruits. No liver enlargement. Bowel sounds are active. Extremities: trace edema. Pulses are intact and symmetrical. Rhythm is sinus today. Electronically Signed: Juan Chin MD July 12, 2018 2:06 PM CC: Man Cha MD CNOV Observed: 07/12/2018 Status: COMPLETED Source: [place] 1:30 PM [facility] REPOSITORY Office Visit (CAWSTR) PANDA FLOYD ([id number]) 1940 M Date Time Provider Department 07/12/18 1:30 PM JUAN CHIN During your visit today, we recorded the following information about you: Pulse Blood pressure Weight 88/minute 146/84 115.3 kg Juan Chin MD 07/12/2018 3:28 PM Signed PERTINENT CARDIAC HISTORY Abnormal EKG Hypertension Hyperlipidemia Diabetes PAF - C-V >2 ADHERENCE TO GUIDELINES ANAMARIA-I or ARB for HF with prior LVEF<40 (NQF 0081) - CRF ASA or Plavix for ASHD (NQF 0067) - N/A Beta armando for ASHD with prior [place] or prior LVEF<40 (NQF 0070) - N/A Beta armando for HF with prior LVEF<40 (NQF 0083) - N/A ANAMARIA-I or ARB for ASHD with DM or prior LVEF<40 (NQF 0066) - N/A Statin therapy for ASHD or FHL or DM - N/A BMI documented and plan if >25 (NQF 0421) - lifestyle recommendation form Tobacco use screening and referral (NQF 0028) - lifestyle recommendation form Recommendation for whole food, plant based diet - lifestyle recommendation form CLINICAL IMPRESSION/PLAN: Panda Floyd is doing well. There is no evidence of unstable ischemic heart disease, decompensated heart failure or arrhythmia. Exercise tolerance has been improving. There is no cardiac contraindication to surgery as planned. Risk of perioperative cardiac complications is low to intermediate. No further studies are recommended. No guarantees were made. I have no objection to him holding the warfarin for a few days prior to surgery. It should be restarted as soon as possible following surgery. INR will need to be checked 1 week after restart. This is currently followed in primary care. He is advised to continue his current medication. I will see him in 6 months or as needed. If he has recurrent atrial fibrillation, we will need to consider an antiarrhythmic drug. Written and verbal health teaching given to patient, patient verbalizes understanding and agrees with treatment plan. DIAGNOSIS FOR VISIT: Preoperative cardiac risk assessment Hypertension PAF HISTORY OF PRESENT ILLNESS Panda Floyd returns for preoperative cardiac risk assessment. He reports improvement in exercise tolerance since cardioversion. He's had better control of his edema and takes Lasix infrequently. He's had no chest discomfort. He is able to walk up stairs without difficulty. He has had no edema, syncope, palpitations, TIAs, amaurosis or claudication. Shoulder surgery is planned in the near future. General anesthesia will be required. ALLERGIES: ALLERGIES No Known Allergies CURRENT OUTPATIENT MEDICATIONS: B Complex Vitamins capsule Take 1 capsule by mouth once daily. warfarin (COUMADIN) 3 mg tablet Take 1 tablet by mouth once daily. As directed furosemide (LASIX) 20 mg tablet Take 1 tablet by mouth once daily. As needed warfarin (COUMADIN) 2 mg tablet Take 1 tablet by mouth daily as directed. Or as directed metoprolol succinate ER (TOPROL XL) 50 mg 24 hr tablet Take 100 mg by mouth once daily. warfarin (COUMADIN) 5 mg tablet Take 1 tablet by mouth once daily. metFORMIN (GLUCOPHAGE) 500 mg tablet TAKE 1 TABLET BY MOUTH TWICE DAILY WITH MEALS albuterol HFA (VENTOLIN HFA) 90 mcg/actuation inhaler Inhale 2 Puffs as instructed every 4 hours as needed for Wheezing/Shortness of Breath. Hydrochlorothiazide 12.5 mg capsule Take 1 capsule by mouth once daily. oxybutynin ER (DITROPAN XL) 10 mg 24 hr tablet Take 2 tablets by mouth once daily. allopurinol (ZYLOPRIM) 300 mg tablet Take 1 tablet by mouth once daily. For gout. amLODIPine (NORVASC) 5 mg tablet Take 1 tablet by mouth once daily. aspirin, enteric coated (ECOTRIN LOW STRENGTH) 81 mg EC tablet Take 1 tablet by mouth once daily. PHYSICAL EXAMINATION: VITAL SIGNS: BP 146/84 Pulse 88 Wt 254 lb 1.6 oz (115.3kg) Chest: Clear to auscultation. Trachea is midline. Air entry is equal. Cardiac: Regular rhythm. S1 and S2 are normal. PMI is nondisplaced. ThThere is a soft systolic ejection murmur Carotids are brisk without bruits. JVP is less than 10 cm. Abdomen: Soft and nontender. There are no pulsatile masses or bruits. No liver enlargement. Bowel sounds are active. Extremities: trace edema. Pulses are intact and symmetrical. Rhythm is sinus today. Electronically Signed: Juan Chin MD July 12, 2018 2:06 PM CC: Man Cha MD Referring Provider: JUAN CHIN [[id number]] Allergies As of Date: 07/12/2018 (No Known Allergies) Date Reviewed: 07/12/2018 Reviewed by: Lizzie Timmons Ma - Fully Assessed Primary Visit Diagnosis:Preop cardiovascular exam [Z01.810] Other Visit Diagnosis:PAF (paroxysmal atrial fibrillation) (HCC) [I48.0] Prescriptions as of 07/12/2018 Sig: VITAMIN B COMPLEX CAPSULE Take 1 capsule by mouth once * WARFARIN 3 MG TABLET Take 1 tablet by mouth once d* FUROSEMIDE 20 MG TABLET Take 1 tablet by mouth once d* WARFARIN 2 MG TABLET Take 1 tablet by mouth daily * METOPROLOL SUCCINATE ER 50 MG* Take 100 mg by mouth once precious* WARFARIN 5 MG TABLET Take 1 tablet by mouth once d* METFORMIN 500 MG TABLET TAKE 1 TABLET BY MOUTH TWICE * ALBUTEROL SULFATE HFA 90 MCG/* Inhale 2 Puffs as instructed * HYDROCHLOROTHIAZIDE 12.5 MG C* Take 1 capsule by mouth once * OXYBUTYNIN CHLORIDE ER 10 MG * Take 2 tablets by mouth once * ALLOPURINOL 300 MG TABLET Take 1 tablet by mouth once d* AMLODIPINE 5 MG TABLET Take 1 tablet by mouth once d* ASPIRIN 81 MG TABLET,DELAYED * Take 1 tablet by mouth once d* Problem List As Of Date 07/12/2018 Noted Resolved Essential hypertension [I10] INVALID FOR* BENIGN HYPERTENSION [I10] 01/28/2006 DYSMETABOLIC SYNDROME X [E88.81] INVALID FOR*09/06/2007 Other malignant neoplasm of other specified sit*INVALID FOR*05/07/2011 Calculus of kidney [N20.0] INVALID FOR*05/07/2011 HEMATURIA [599.7] INVALID FOR*09/08/2006 PAIN ABDOMEN( Left Lower Quadrant) [R10.32] INVALID FOR*09/08/2006 Other specified disorders of pelvic joint [M25.*INVALID FOR*05/07/2011 Special Screening for Malignant Neoplasms, Seffner*INVALID FOR*10/11/2009 POLYP COLON [D12.6] INVALID FOR*10/11/2009 NEURALGIA/NEURITIS NOS [UPF3813] INVALID FOR* OBESITY NOS [E66.9] INVALID FOR* UMBILICAL HERNIA W/O GANGRENE/OBSTRUCTION [K42.*INVALID FOR*12/25/2010 PERSONAL HISTORY OF COLONIC POLYPS [Z86.010] INVALID FOR*05/07/2011 BPH (benign prostatic hypertrophy) with urinary*INVALID FOR* 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*10/11/2009 COPD (Chronic Obstructive Pulmonary Disease) [J*INVALID FOR* Smoker [F17.200] INVALID FOR* Cough due to angiotensin-converting enzyme inhi*INVALID FOR*03/29/2015 Metabolic syndrome [E88.81] INVALID FOR* Ganglion cyst [M67.40] INVALID FOR*03/29/2015 LBP (low back pain) [M54.5] INVALID FOR* Spinal stenosis [M48.00] INVALID FOR* Personal history of colonic polyps [Z86.010] INVALID FOR* Hematoma [T14.8XXA] INVALID FOR*03/29/2015 Gout [M10.9] INVALID FOR* Nocturia [R35.1] INVALID FOR* Frequency of micturition [R35.0] INVALID FOR*04/13/2016 Urgency of urination [R39.15] INVALID FOR* Type 2 diabetes mellitus with complication, wit*INVALID FOR* Chronic bronchitis (HCC) [J42] INVALID FOR* PAF (paroxysmal atrial fibrillation) (HCC) [I48*INVALID FOR* Encounter Status:Closed by JUAN CHIN MD on 07/12/18 EXTREMITY UPPER Observed: 06/21/2018 Status: F Source: [place] WITHOUT CONTRA 12:47 PM [facility] REPOSITORY [facility] Imaging Services [address] [place] [id number] Extremity Upper without Contra MR#: [id number] Acct: [id number] Name: PANDA FLOYD Rep #: [id number] : 1940 M 77 From: Maxim Espinoza MD PCP: Man Cha MD Status: REG CLI Study: Extremity Upper without Contra Date of Exam: 06/21/18 Exam# [id number] Ordering Dr: Vick Faulkner MD STUDY: CT LEFT SHOULDER REASON FOR EXAM: Male, 77 years old. Osteoarthritis. RADIATION DOSAGE (If Supplied By Facility): CTDIvol = ( 47.97 ) mGy, DLP = ( 1258.83 ) mGycm TECHNIQUE: The patient was scanned in a multi detector CT scanner. High resolution transaxial imaging was performed without the administration of intravenous contrast material. Sagittal and coronal images were reconstructed. Individualized dose optimization techniques were used for this CT. COMPARISON: None. FINDINGS: There is severe osteoarthritis, with severe articular joint space narrowing, osteoarthritic spurring, articular remodeling, and with articular erosions. There is joint effusion. There is 0.8 cm loose body in the joint. There is decreased subacromial space consistent with chronic rotator cuff tear. There is atrophy of the supraspinatus and infraspinatus muscles Normal glenoid rim, neck and visualized scapula. Normal humeral head, neck and tuberosities. Normal coracoid process. Normal visualized lateral clavicle. There is hypertrophic osteoarthritis with prominent osseous hypertrophy, with a potential for impingement upon the supraspinatus muscle. There is a Type II morphology (curved) acromion, with a neutral orientation. Normal visualized soft tissue structures. Fibrotic densities in the lungs. CT/Extremity Upper without Contra IMPRESSION: Glenohumeral and acromioclavicular arthrosis. Chronic rotator cuff tear. Electronically Signed: Maxim Espinoza MD at 20:34 EDT , Service support , CC: Man Cha MD; Vick Faulkner MD Business Support Administrator: Signed PROGRESS Observed: 05/12/2018 Status: COMPLETED Source: [place] 11:47 AM [facility] REPOSITORY HNO ID: [id number] Author: Juan Chin Service: (none) Author Type: Physician Type: Progress Notes Filed: 05/12/2018 4:33 PM Note Text: PERTINENT CARDIAC HISTORY Abnormal EKG Hypertension Hyperlipidemia Diabetes PAF - C-V >2 ADHERENCE TO GUIDELINES ANAMARIA-I or ARB for HF with prior LVEF<40 (NQF 0081) - CRF ASA or Plavix for ASHD (NQF 0067) - N/A Beta armando for ASHD with prior [place] or prior LVEF<40 (NQF 0070) - N/A Beta armando for HF with prior LVEF<40 (NQF 0083) - N/A ANAMARIA-I or ARB for ASHD with DM or prior LVEF<40 (NQF 0066) - N/A Statin therapy for ASHD or FHL or DM - N/A BMI documented and plan if >25 (NQF 0421) - lifestyle recommendation form Tobacco use screening and referral (NQF 0028) - lifestyle recommendation form Recommendation for whole food, plant based diet - lifestyle recommendation form CLINICAL IMPRESSION/PLAN: Panda Floyd is maintaining sinus rhythm. He has mild volume overload. I recommend that he use Lasix on a when necessary basis and let me know if this becomes a regular medication. We may need to discontinue HCTZ and go with Lasix and Aldactone/KCl . He confirmed the INR is followed in primary care. He will continue his current medications. I will see him in 6 months. I've asked him to pay attention to his heart rhythm and let me know if it becomes irregular again. Written and verbal health teaching given to patient, patient verbalizes understanding and agrees with treatment plan. DIAGNOSIS FOR VISIT: PAF Hypertension HISTORY OF PRESENT ILLNESS Panda Floyd returns for follow-up of his atrial fibrillation and hypertension. He underwent successful cardioversion. He reports that his exercise tolerance has improved. He is no longer taking Lasix. He denies chest pain. He's had no orthopnea. His edema has worsened slightly. He's had no syncope, palpitations, TIAs, amaurosis or claudication ALLERGIES: ALLERGIES No Known Allergies CURRENT OUTPATIENT MEDICATIONS: warfarin (COUMADIN) 3 mg tablet Take 1 tablet by mouth once daily. furosemide (LASIX) 20 mg tablet Take 1 tablet by mouth once daily. As needed warfarin (COUMADIN) 2 mg tablet Take 1 tablet by mouth daily as directed. Or as directed metoprolol succinate ER (TOPROL XL) 50 mg 24 hr tablet Take 100 mg by mouth once daily. warfarin (COUMADIN) 5 mg tablet Take 1 tablet by mouth once daily. metFORMIN (GLUCOPHAGE) 500 mg tablet TAKE 1 TABLET BY MOUTH TWICE DAILY WITH MEALS albuterol HFA (VENTOLIN HFA) 90 mcg/actuation inhaler Inhale 2 Puffs as instructed every 4 hours as needed for Wheezing/Shortness of Breath. Hydrochlorothiazide 12.5 mg capsule Take 1 capsule by mouth once daily. oxybutynin ER (DITROPAN XL) 10 mg 24 hr tablet Take 2 tablets by mouth once daily. allopurinol (ZYLOPRIM) 300 mg tablet Take 1 tablet by mouth once daily. For gout. amLODIPine (NORVASC) 5 mg tablet Take 1 tablet by mouth once daily. aspirin, enteric coated (ECOTRIN LOW STRENGTH) 81 mg EC tablet Take 1 tablet by mouth once daily. PHYSICAL EXAMINATION: VITAL SIGNS: BP 152/90 Pulse 87 Wt 256 lb 1.6 oz (116.2kg) Chest: Clear to auscultation. Trachea is midline. Air entry is equal. Cardiac: Regular rhythm. S1 and S2 are normal. PMI is nondisplaced. There is a soft systolic ejection murmur. Carotids are brisk without bruits. JVP is less than 10 cm. Abdomen: Soft and nontender. There are no pulsatile masses or bruits. No liver enlargement. Bowel sounds are active. Extremities: 2 plus edema. Pulses are intact and symmetrical. EKG post cardioversion shows sinus rhythm with ventricular bigeminy. Rhythm today is sinus without ectopy. Recent labs were reviewed. Renal function is noted. Magnesium level was normal. Electronically Signed: Juan Chin MD May 12, 2018 11:47 AM CC: Man Cha MD CNOV Observed: 05/12/2018 Status: COMPLETED Source: [place] 11:15 AM [facility] REPOSITORY Office Visit (CAWSTR) PANDA FLOYD ([id number]) 1940 M Date Time Provider Department 05/12/18 11:15 AM JUAN CHIN CAWSTR During your visit today, we recorded the following information about you: Pulse Blood pressure Weight 87/minute 152/90 116.2 kg Juan Chin MD 05/12/2018 4:33 PM Signed PERTINENT CARDIAC HISTORY Abnormal EKG Hypertension Hyperlipidemia Diabetes PAF - C-V >2 ADHERENCE TO GUIDELINES ANAMARIA-I or ARB for HF with prior LVEF<40 (NQF 0081) - CRF ASA or Plavix for ASHD (NQF 0067) - N/A Beta armando for ASHD with prior [place] or prior LVEF<40 (NQF 0070) - N/A Beta armando for HF with prior LVEF<40 (NQF 0083) - N/A ANAMARIA-I or ARB for ASHD with DM or prior LVEF<40 (NQF 0066) - N/A Statin therapy for ASHD or FHL or DM - N/A BMI documented and plan if >25 (NQF 0421) - lifestyle recommendation form Tobacco use screening and referral (NQF 0028) - lifestyle recommendation form Recommendation for whole food, plant based diet - lifestyle recommendation form CLINICAL IMPRESSION/PLAN: Panda Floyd is maintaining sinus rhythm. He has mild volume overload. I recommend that he use Lasix on a when necessary basis and let me know if this becomes a regular medication. We may need to discontinue HCTZ and go with Lasix and Aldactone/KCl . He confirmed the INR is followed in primary care. He will continue his current medications. I will see him in 6 months. I've asked him to pay attention to his heart rhythm and let me know if it becomes irregular again. Written and verbal health teaching given to patient, patient verbalizes understanding and agrees with treatment plan. DIAGNOSIS FOR VISIT: PAF Hypertension HISTORY OF PRESENT ILLNESS Panda Floyd returns for follow-up of his atrial fibrillation and hypertension. He underwent successful cardioversion. He reports that his exercise tolerance has improved. He is no longer taking Lasix. He denies chest pain. He's had no orthopnea. His edema has worsened slightly. He's had no syncope, palpitations, TIAs, amaurosis or claudication ALLERGIES: ALLERGIES No Known Allergies CURRENT OUTPATIENT MEDICATIONS: warfarin (COUMADIN) 3 mg tablet Take 1 tablet by mouth once daily. furosemide (LASIX) 20 mg tablet Take 1 tablet by mouth once daily. As needed warfarin (COUMADIN) 2 mg tablet Take 1 tablet by mouth daily as directed. Or as directed metoprolol succinate ER (TOPROL XL) 50 mg 24 hr tablet Take 100 mg by mouth once daily. warfarin (COUMADIN) 5 mg tablet Take 1 tablet by mouth once daily. metFORMIN (GLUCOPHAGE) 500 mg tablet TAKE 1 TABLET BY MOUTH TWICE DAILY WITH MEALS albuterol HFA (VENTOLIN HFA) 90 mcg/actuation inhaler Inhale 2 Puffs as instructed every 4 hours as needed for Wheezing/Shortness of Breath. Hydrochlorothiazide 12.5 mg capsule Take 1 capsule by mouth once daily. oxybutynin ER (DITROPAN XL) 10 mg 24 hr tablet Take 2 tablets by mouth once daily. allopurinol (ZYLOPRIM) 300 mg tablet Take 1 tablet by mouth once daily. For gout. amLODIPine (NORVASC) 5 mg tablet Take 1 tablet by mouth once daily. aspirin, enteric coated (ECOTRIN LOW STRENGTH) 81 mg EC tablet Take 1 tablet by mouth once daily. PHYSICAL EXAMINATION: VITAL SIGNS: BP 152/90 Pulse 87 Wt 256 lb 1.6 oz (116.2kg) Chest: Clear to auscultation. Trachea is midline. Air entry is equal. Cardiac: Regular rhythm. S1 and S2 are normal. PMI is nondisplaced. There is a soft systolic ejection murmur. Carotids are brisk without bruits. JVP is less than 10 cm. Abdomen: Soft and nontender. There are no pulsatile masses or bruits. No liver enlargement. Bowel sounds are active. Extremities: 2 plus edema. Pulses are intact and symmetrical. EKG post cardioversion shows sinus rhythm with ventricular bigeminy. Rhythm today is sinus without ectopy. Recent labs were reviewed. Renal function is noted. Magnesium level was normal. Electronically Signed: Juan Chin MD May 12, 2018 11:47 AM CC: MD Juan Cerda MD 05/12/2018 11:47 AM Signed LIFESTYLE CHANGE A healthy lifestyle is the most important component of your overall treatment plan. Please give serious thought to the following areas and commit to making mcc changes. EAT A WHOLE FOOD, PLANT BASED DIET The nutrition your body gets is more important than the medicine you take. What matters most is the overall way you eat. We encourage you to minimize the use of animal products (which include dairy and all meats except fatty fish) and use whole, unprocessed plant foods to provide your protein, vitamins and other nutrients. We have a lot of information to share with you on this topic. This is not a diet. It is a way of life that you will keep with you. EXERCISE REGULARLY It is not important to spend hours in the gym, lifting weights and perspiring heavily. A total of 2-3 hours per week of aerobic (causing you to be moderately short of breath) exercise is sufficient to improve your health. Talk to us before you begin a new exercise program, if you have heart disease or experience shortness of breath or chest pain. REDUCE STRESS Chronic emotional and physical stress leads to disease. Ways of reducing stress include meditation, visualization, prayer, yoga and other forms of relaxation therapy. Consistency is the phan. Find a technique that works for you and do it every day. CULTIVATE RELATIONSHIPS Loneliness and isolation have a major negative impact on health. Seek out others who can love, care for and nurture you. Avoid hurtful relationships. MAINTAIN IDEAL BODY WEIGHT The best way to do this is to do all the things above. Our bodies naturally find the right weight if we keep moving and feed ourselves the right food. If your BMI is greater than 25, we strongly recommend a referral to a weight management program. Please speak to us or your family physician about available programs. AVOID NICOTINE IN ALL FORMS This includes all tobacco products, whether chewed, smoked, vaped, or rubbed on the skin. Smoking cessation programs, which can make use of tobacco substitutes, medications to suppress cravings and behavior management, are available. Please contact your family physician about programs in your area. Referring Provider: JUAN CHIN [[id number]] Allergies As of Date: 05/12/2018 (No Known Allergies) Date Reviewed: 05/12/2018 Reviewed by: Alfonso Elliott RN - Fully Assessed Reason for Visit: Recheck [92] Primary Visit Diagnosis:Hypertension, essential [I10] Other Visit Diagnosis:PAF (paroxysmal atrial fibrillation) (HCC) [I48.0] Prescriptions as of 05/12/2018 Sig: WARFARIN 3 MG TABLET Take 1 tablet by mouth once d* FUROSEMIDE 20 MG TABLET Take 1 tablet by mouth once d* WARFARIN 2 MG TABLET Take 1 tablet by mouth daily * METOPROLOL SUCCINATE ER 50 MG* Take 100 mg by mouth once precious* WARFARIN 5 MG TABLET Take 1 tablet by mouth once d* METFORMIN 500 MG TABLET TAKE 1 TABLET BY MOUTH TWICE * ALBUTEROL SULFATE HFA 90 MCG/* Inhale 2 Puffs as instructed * HYDROCHLOROTHIAZIDE 12.5 MG C* Take 1 capsule by mouth once * OXYBUTYNIN CHLORIDE ER 10 MG * Take 2 tablets by mouth once * ALLOPURINOL 300 MG TABLET Take 1 tablet by mouth once d* AMLODIPINE 5 MG TABLET Take 1 tablet by mouth once d* ASPIRIN 81 MG TABLET,DELAYED * Take 1 tablet by mouth once d* Patient not taking: Reported on 01/07/2018 Problem List As Of Date 05/12/2018 Noted Resolved Essential hypertension [I10] INVALID FOR* BENIGN HYPERTENSION [I10] 01/28/2006 DYSMETABOLIC SYNDROME X [E88.81] INVALID FOR*09/06/2007 Other malignant neoplasm of other specified sit*INVALID FOR*05/07/2011 Calculus of kidney [N20.0] INVALID FOR*05/07/2011 HEMATURIA [599.7] INVALID FOR*09/08/2006 PAIN ABDOMEN( Left Lower Quadrant) [R10.32] INVALID FOR*09/08/2006 Other specified disorders of pelvic joint [M25.*INVALID FOR*05/07/2011 Special Screening for Malignant Neoplasms, Seffner*INVALID FOR*10/11/2009 POLYP COLON [D12.6] INVALID FOR*10/11/2009 NEURALGIA/NEURITIS NOS [WZQ8194] INVALID FOR* OBESITY NOS [E66.9] INVALID FOR* UMBILICAL HERNIA W/O GANGRENE/OBSTRUCTION [K42.*INVALID FOR*12/25/2010 PERSONAL HISTORY OF COLONIC POLYPS [Z86.010] INVALID FOR*05/07/2011 BPH (benign prostatic hypertrophy) with urinary*INVALID FOR* 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*10/11/2009 COPD (Chronic Obstructive Pulmonary Disease) [J*INVALID FOR* Smoker [F17.200] INVALID FOR* Cough due to angiotensin-converting enzyme inhi*INVALID FOR*03/29/2015 Metabolic syndrome [E88.81] INVALID FOR* Ganglion cyst [M67.40] INVALID FOR*03/29/2015 LBP (low back pain) [M54.5] INVALID FOR* Spinal stenosis [M48.00] INVALID FOR* Personal history of colonic polyps [Z86.010] INVALID FOR* Hematoma [T14.8XXA] INVALID FOR*03/29/2015 Gout [M10.9] INVALID FOR* Nocturia [R35.1] INVALID FOR* Frequency of micturition [R35.0] INVALID FOR*04/13/2016 Urgency of urination [R39.15] INVALID FOR* Type 2 diabetes mellitus with complication, wit*INVALID FOR* Chronic bronchitis (HCC) [J42] INVALID FOR* PAF (paroxysmal atrial fibrillation) (HCC) [I48*INVALID FOR* Other instructions from your clinician: LIFESTYLE CHANGE A healthy lifestyle is the most important component of your overall treatment plan. Please give serious thought to the following areas and commit to making intermediate manager changes. EAT A WHOLE FOOD, PLANT BASED DIET The nutrition your body gets is more important than the medicine you take. What matters most is the overall way you eat. We encourage you to minimize the use of animal products (which include dairy and all meats except fatty fish) and use whole, unprocessed plant foods to provide your protein, vitamins and other nutrients. We have a lot of information to share with you on this topic. This is not a diet. It is a way of life that you will keep with you. EXERCISE REGULARLY It is not important to spend hours in the gym, lifting weights and perspiring heavily. A total of 2-3 hours per week of aerobic (causing you to be moderately short of breath) exercise is sufficient to improve your health. Talk to us before you begin a new exercise program, if you have heart disease or experience shortness of breath or chest pain. REDUCE STRESS Chronic emotional and physical stress leads to disease. Ways of reducing stress include meditation, visualization, prayer, yoga and other forms of relaxation therapy. Consistency is the phan. Find a technique that works for you and do it every day. CULTIVATE RELATIONSHIPS Loneliness and isolation have a major negative impact on health. Seek out others who can love, care for and nurture you. Avoid hurtful relationships. MAINTAIN IDEAL BODY WEIGHT The best way to do this is to do all the things above. Our bodies naturally find the right weight if we keep moving and feed ourselves the right food. If your BMI is greater than 25, we strongly recommend a referral to a weight management program. Please speak to us or your family physician about available programs. AVOID NICOTINE IN ALL FORMS This includes all tobacco products, whether chewed, smoked, vaped, or rubbed on the skin. Smoking cessation programs, which can make use of tobacco substitutes, medications to suppress cravings and behavior management, are available. Please contact your family physician about programs in your area. Encounter Status:Closed by JUAN CHIN MD on 05/12/18 EKG1 Observed: 03/31/2018 Status: C Source: [place] 10:46 AM [facility] REPOSITORY NAME : PANDA FLOYD PID : [id number] : 1940 Gender : Male Race : ORD : Procedure Date : Mar 31 2018 10:46:22 Edit Date : Apr 04 2018 12:12:29 Diagnosis:SINUS RHYTHM WITH FREQUENT AND CONSECUTIVE PREMATURE VENTRICULAR COMPLEXES IN A PATTERN OF BIGEMINY PROLONGED QT INTERVAL OR TU FUSION, CONSIDER HYPOKALEMIA ABNORMAL ECG NO PREVIOUS ECGS AVAILABLE Confirmed by JUAN CHIN MD ([id number]) on 04/01/2018 8:09:25 AM Also confirmed by JUAN CHIN MD ([id number]), editor index HERMILO BAL ([id number]) on 04/04/2018 12:11:57 PM Ventricular Rate : 83 BPM Atrial Rate : 83 BPM P-R Interval : 200 ms QRS Duration : 86 ms Q-T Interval : 426 ms QTC Calculation(Bezet) : 500 ms P Nebo : 81 degrees R Nebo : 14 degrees T Nebo : 32 degrees Test Reason : Location : 136 : [facility] Overread By : JUAN CHIN MD Edited By : HERMILO BAL Referred By : JUAN CHIN Acquired by : MAICOL SAMS Observed: 03/31/2018 Status: COMPLETED Source: [place] 10:00 AM [facility] REPOSITORY Nurse Visit (CAWSTR) PANDA FLOYD ([id number]) 1940 M Date Time Provider Department 03/31/18 10:00 AM NURSE CARD ADMIN [facility] CAWSTR During your visit today, we recorded the following information about you: Referring Provider: JUAN CHIN [[id number]] Allergies As of Date: 03/31/2018 (No Known Allergies) Date Reviewed: 03/16/2018 Reviewed by: Marilu Burdick Ma - Fully Assessed Reason for Visit: Nurse Visit [792] Visit Diagnosis:Atrial fibrillation status post cardioversion (HCC) [I48.91] Prescriptions as of 03/31/2018 Sig: WARFARIN 3 MG TABLET Take 1 tablet by mouth once d* FUROSEMIDE 20 MG TABLET Take 1 tablet by mouth once d* WARFARIN 2 MG TABLET Take 1 tablet by mouth daily * METOPROLOL SUCCINATE ER 50 MG* Take 100 mg by mouth once precious* WARFARIN 5 MG TABLET Take 1 tablet by mouth once d* METFORMIN 500 MG TABLET TAKE 1 TABLET BY MOUTH TWICE * ALBUTEROL SULFATE HFA 90 MCG/* Inhale 2 Puffs as instructed * HYDROCHLOROTHIAZIDE 12.5 MG C* Take 1 capsule by mouth once * OXYBUTYNIN CHLORIDE ER 10 MG * Take 2 tablets by mouth once * ALLOPURINOL 300 MG TABLET Take 1 tablet by mouth once d* AMLODIPINE 5 MG TABLET Take 1 tablet by mouth once d* ASPIRIN 81 MG TABLET,DELAYED * Take 1 tablet by mouth once d* Patient not taking: Reported on 01/07/2018 Problem List As Of Date 03/31/2018 Noted Resolved Essential hypertension [I10] INVALID FOR* BENIGN HYPERTENSION [I10] 01/28/2006 DYSMETABOLIC SYNDROME X [E88.81] INVALID FOR*09/06/2007 Other malignant neoplasm of other specified sit*INVALID FOR*05/07/2011 Calculus of kidney [N20.0] INVALID FOR*05/07/2011 HEMATURIA [599.7] INVALID FOR*09/08/2006 PAIN ABDOMEN( Left Lower Quadrant) [R10.32] INVALID FOR*09/08/2006 Other specified disorders of pelvic joint [M25.*INVALID FOR*05/07/2011 Special Screening for Malignant Neoplasms, Seffner*INVALID FOR*10/11/2009 POLYP COLON [D12.6] INVALID FOR*10/11/2009 NEURALGIA/NEURITIS NOS [PXP5634] INVALID FOR* OBESITY NOS [E66.9] INVALID FOR* UMBILICAL HERNIA W/O GANGRENE/OBSTRUCTION [K42.*INVALID FOR*12/25/2010 PERSONAL HISTORY OF COLONIC POLYPS [Z86.010] INVALID FOR*05/07/2011 BPH (benign prostatic hypertrophy) with urinary*INVALID FOR* 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*10/11/2009 COPD (Chronic Obstructive Pulmonary Disease) [J*INVALID FOR* Smoker [F17.200] INVALID FOR* Cough due to angiotensin-converting enzyme inhi*INVALID FOR*03/29/2015 Metabolic syndrome [E88.81] INVALID FOR* Ganglion cyst [M67.40] INVALID FOR*03/29/2015 LBP (low back pain) [M54.5] INVALID FOR* Spinal stenosis [M48.00] INVALID FOR* Personal history of colonic polyps [Z86.010] INVALID FOR* Hematoma [T14.8XXA] INVALID FOR*03/29/2015 Gout [M10.9] INVALID FOR* Nocturia [R35.1] INVALID FOR* Frequency of micturition [R35.0] INVALID FOR*04/13/2016 Urgency of urination [R39.15] INVALID FOR* Type 2 diabetes mellitus with complication, wit*INVALID FOR* Chronic bronchitis (HCC) [J42] INVALID FOR* PAF (paroxysmal atrial fibrillation) (HCC) [I48*INVALID FOR* Encounter Status:Closed by ALFONSO ELLIOTT RN on 03/31/18 OPERATIVE REPORT Observed: 03/22/2018 Status: F Source: [place] 1:53 PM [facility] REPOSITORY [facility] Medical Records Department [address] [place] [address] [place] [address] Operative Report 03/22/18 1350 MR#: [id number] Acct: [id number] Name: PANDA FLOYD Rep #: [id number] : 1940 77 From: Jp Sanabria MD PCP: Man Cha MD Status: REG [facility] Location: [facility] Problem List (1) Atrial fibrillation Status: Acute Qualifiers: Atrial fibrillation type: persistent Qualified Code(s): I48.1 - Persistent atrial fibrillation Operative Report Date of Procedure: 03/22/18 Procedure: Synchronized biphasic DC cardioversion Indications: Atrial fibrillation Consent: Per the patient Anesthesia: Per Dr. Dalton of pulmonology and critical care medicine with propofol 40 mg IV push total Procedure: Synchronized biphasic DC cardioversion: 200 J 1: Result: Sinus rhythm; PACs Complications: No apparent complications This note was generated with [employer] software. It may contain incorrect words, spelling, and punctuation that were not noted in checking the note before signing. 03/22/18 1353 <Electronically signed by Jp Sanabria MD> Date Jp Sanabria MD CC: Juan Chin MD; Jp Sanabria MD; Man Cha MD Signed OPERATIVE REPORT Observed: 03/22/2018 Status: F Source: [place] 1:08 PM [facility] REPOSITORY [facility] Medical Records Department [address] [place] [address] Operative Report 03/22/18 1304 MR#: [id number] Acct: [id number] Name: PANDA FLOYD Rep #: [id number] : 1940 77 From: Anish Dalton DO PCP: Man Cha MD Status: REG [facility] Y Location: [facility] Operative Report Date of Procedure: 03/22/18 CONSCIOUS SEDATION REPORT DATE OF SERVICE: March 22, 2018 BRIEF HISTORY OF PRESENT ILLNESS: The patient is a 77-year-old male who presented to [facility] for elective outpatient cardioversion due to underlying atrial fibrillation. The patient's last surface echocardiogram completed in December 2017 revealed moderate concentric LVH with an ejection fraction of 60%. The patient does have suspected obstructive sleep apnea, but is never undergone formal polysomnogram. He denies a history of COPD or asthma. He is not oxygen dependent at his baseline. He denies any recent constitutional symptoms such as fevers, chills, nausea or vomiting. He has never undergone a previous cardioversion. PHYSICAL EXAMINATION: VITAL SIGNS: Reviewed and were acceptable. GENERAL: The patient is a male, in no apparent distress, speaking in full sentences. HEENT: Normocephalic, atraumatic. Mucous membranes are moist and pink. Good mouth opening noted. Trachea is midline. Good neck mobility. MP III CHEST: S1, S2 irregularly irregular. No murmurs, rubs or gallops were noted. LUNGS: Clear to auscultation bilaterally without appreciable wheezes, rales or rhonchi. ABDOMEN: Soft, nontender, nondistended. Positive bowel sounds. Obese. EXTREMITIES: There is no clubbing, cyanosis or edema. ASA Class: II DESCRIPTION OF PROCEDURE: After confirmation of informed consent, the patient's anesthesia plan was reviewed in detail. Propofol was chosen. Risks and benefits were reviewed and the patient agreed to proceed. At 1238, the patient was given 40 mg of propofol. The patient achieved an appropriate level of sedation and was given a 200 joule synchronized cardioversion by Dr. Sanabria at the bedside. This was successful in achieving normal sinus rhythm. The patient was monitored until 1246, at which time he reached his baseline mental status and function. The patient tolerated the procedure well. COMPLICATIONS: None ESTIMATED BLOOD LOSS: None RECOMMENDATIONS: Okay to recover in usual fashion. Code Visit 9xxxx: Other Procedure See Report - [id number] 03/22/18 1308 <Electronically signed by Anish Dalton DO> Date Anish Dalton DO CC: Anish Dalton D.O.; Jp Sanabria MD; Man Cha MD Signed PROTIME W/INR Collected: 03/22/2018 Status: F [facility] REPOSITORY TYPE CODE TESTS RESULT OUT OF REFERENCE UNITS RANGE LAB L9200.1001 11.9-14.4 SEC High PROTIME ISTAT 23.7 Result Comment: Reference Range 11.9 - 14.4 LAB L9200.2000 Normal INR ISTAT 2.00 Result Comment: Critical Value > 3.5 Performed By: #### L9200.0000 #### [facility] Laboratory Point of Care [address] [place] [address] CNNURSE Observed: 03/16/2018 Status: COMPLETED Source: [place] 3:30 PM [facility] REPOSITORY Nurse Visit (CAWSTR) PANDA FLOYD ([id number]) 1940 M Date Time Provider Department 03/16/18 3:30 PM NURSE CARD ADMIN [facility] CAWSTR During your visit today, we recorded the following information about you: Stacey Duarte MA 04/08/2018 1:21 PM Signed EKG completed and given to Dr Chin for review. Stacey Duarte MA Referring Provider: JUAN CHIN [[id number]] Allergies As of Date: 03/16/2018 (No Known Allergies) Date Reviewed: 03/16/2018 Reviewed by: Marilu Burdick Ma - Fully Assessed Reason for Visit: Allied Health Visit [5] Visit Diagnosis:PAF (paroxysmal atrial fibrillation) (HCC) [I48.0] Order(s):ECG COMPLETE W INTERPRETATION [ECG01] Order #: [id number] Prescriptions as of 03/16/2018 Sig: WARFARIN 3 MG TABLET Take 1 tablet by mouth once d* FUROSEMIDE 20 MG TABLET Take 1 tablet by mouth once d* WARFARIN 2 MG TABLET Take 1 tablet by mouth daily * METOPROLOL SUCCINATE ER 50 MG* Take 100 mg by mouth once precious* WARFARIN 5 MG TABLET Take 1 tablet by mouth once d* METFORMIN 500 MG TABLET TAKE 1 TABLET BY MOUTH TWICE * ALBUTEROL SULFATE HFA 90 MCG/* Inhale 2 Puffs as instructed * HYDROCHLOROTHIAZIDE 12.5 MG C* Take 1 capsule by mouth once * OXYBUTYNIN CHLORIDE ER 10 MG * Take 2 tablets by mouth once * ALLOPURINOL 300 MG TABLET Take 1 tablet by mouth once d* AMLODIPINE 5 MG TABLET Take 1 tablet by mouth once d* ASPIRIN 81 MG TABLET,DELAYED * Take 1 tablet by mouth once d* Patient not taking: Reported on 01/07/2018 Problem List As Of Date 03/16/2018 Noted Resolved Essential hypertension [I10] INVALID FOR* BENIGN HYPERTENSION [I10] 01/28/2006 DYSMETABOLIC SYNDROME X [E88.81] INVALID FOR*09/06/2007 Other malignant neoplasm of other specified sit*INVALID FOR*05/07/2011 Calculus of kidney [N20.0] INVALID FOR*05/07/2011 HEMATURIA [599.7] INVALID FOR*09/08/2006 PAIN ABDOMEN( Left Lower Quadrant) [R10.32] INVALID FOR*09/08/2006 Other specified disorders of pelvic joint [M25.*INVALID FOR*05/07/2011 Special Screening for Malignant Neoplasms, Seffner*INVALID FOR*10/11/2009 POLYP COLON [D12.6] INVALID FOR*10/11/2009 NEURALGIA/NEURITIS NOS [[id number]] INVALID FOR* OBESITY NOS [E66.9] INVALID FOR* UMBILICAL HERNIA W/O GANGRENE/OBSTRUCTION [K42.*INVALID FOR*12/25/2010 PERSONAL HISTORY OF COLONIC POLYPS [Z86.010] INVALID FOR*05/07/2011 BPH (benign prostatic hypertrophy) with urinary*INVALID FOR* 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*10/11/2009 COPD (Chronic Obstructive Pulmonary Disease) [J*INVALID FOR* Smoker [F17.200] INVALID FOR* Cough due to angiotensin-converting enzyme inhi*INVALID FOR*03/29/2015 Metabolic syndrome [E88.81] INVALID FOR* Ganglion cyst [M67.40] INVALID FOR*03/29/2015 LBP (low back pain) [M54.5] INVALID FOR* Spinal stenosis [M48.00] INVALID FOR* Personal history of colonic polyps [Z86.010] INVALID FOR* Hematoma [T14.8XXA] INVALID FOR*03/29/2015 Gout [M10.9] INVALID FOR* Nocturia [R35.1] INVALID FOR* Frequency of micturition [R35.0] INVALID FOR*04/13/2016 Urgency of urination [R39.15] INVALID FOR* Type 2 diabetes mellitus with complication, wit*INVALID FOR* Chronic bronchitis (HCC) [J42] INVALID FOR* PAF (paroxysmal atrial fibrillation) (HCC) [I48*INVALID FOR* Visit Notes: >> Stacey Duarte MA WedApr 08, 2018 1:21 PM Status: Signed EKG completed and given to Dr Chin for review. Stacey Duarte MA Encounter Status:Closed by STACEY DUARTE MA on 04/08/18 PROTIME Collected: 03/16/2018 Status: F Source: [place] 2:14 PM [facility] RE[facility] TYPE CODE TESTS RESULT OUT OF RANGE REFERENCE UNITS LAB PSEC 9.7-13.0 sec High PT Sec 20.6 LAB INR 0.9-1.3 High PT INR 2.1 Result Comment: Vitamin K Antagonist (VKA) Therapeutic Range: INR 2 to 3 (Target INR of 2.5) Note: For patients treated with VKA drugs, such as warfarin, the [employer] 2012 Guideline recommends a therapeutic INR range of 2 to 3 (target INR of 2.5). This recommendation includes high-risk patients with antiphospholipid syndrome with previous arterial or venous thromboembolism, current-generation mechanical or bioprosthetic aortic heart valve replacement. Note: Patients with mechanical aortic valve replacement and additional risk factors for thromboembolic events (atrial fibrillation, previous thromboembolism, LV dysfunction, hypercoagulable conditions) or an older generation mechanical AVR (i.e., ball in-Cage) or any mechanical MVR should have a INR therapeutic range of 2.5 to 3.5 (target INR of 3). Tomasz WING, et al. Chest 2012, 141:7S-47S Devaughn ROGEL et al. [facility] 2017, 70: 252-289 Performed By: #### PT, CBC, BMP, MG1 #### [facility] [address], [place] [address] CBC Collected: 03/16/2018 Status: F Source: [place] 2:14 PM [facility] REPOSITORY TYPE CODE TESTS RESULT OUT OF REFERENCE UNITS RANGE LAB WBC 3.70-11.00 k/uL WBC 10.60 LAB RBC 4.20-6.00 m/uL RBC 4.89 LAB HGB 13.0-17.0 g/dL Hemoglobin 15.2 LAB HCT 39.0-51.0 % Hematocrit 46.6 LAB MCV 80.0-100.0 fL MCV 95.3 LAB MCH 26.0-34.0 pG MCH 31.1 LAB MCHC 30.5-36.0 g/dL MCHC 32.6 LAB RDWCV 11.5-15.0 % RDW-CV 14.4 LAB PLTCT 150-400 k/uL Platelet Count 245 LAB MPV 9.0-12.7 fL MPV 10.1 LAB ABSNUC <0.01 k/uL Absolute nRBC <0.01 Performed By: #### PT, CBC, BMP, MG1 #### [facility] [address], [place] [address] BASIC METABOLIC PANL Collected: 03/16/2018 Status: F Source: [place] 2:14 PM [facility] REPOSITORY TYPE CODE TESTS RESULT OUT OF REFERENCE UNITS RANGE LAB GLU 74-99 mg/dL High Glucose 140 Result Comment: The [place] Diabetes [employer] (ADA) provides guidance for cutoff values for fasting glucose and random glucose. The ADA defines fasting as no caloric intake for at least 8 hours. Fas ting plasma glucose results between 100 to 125 mg/dL indicate increased risk for diabetes (prediabetes). Fasting plasma glucose results greater than or equal to 126 mg/dL meet the criteria for diagnosis of diabetes. In the absence of unequivocal hyperglycemia, results should be confirmed by repeat testing. In a patient with classic symptoms of hyperglycemia or hyperglycemic crisis, random plasma glucose results greater than or equal to 200 mg/dL meet the criteria for diagnosis of diabetes. Reference: Standards of Medical Care in Diabetes 2016, [place] Diabetes Association. Diabetes Care. 2016.39(Suppl 1). LAB BUN 9-24 mg/dL BUN 22 LAB CRET 0.73-1.22 mg/dL Creatinine 1.10 LAB NA 136-144 mmol/L Sodium 141 LAB K 3.7-5.1 mmol/L Potassium 4.3 LAB CL 97-105 mmol/L Chloride 99 LAB CO2 22-30 mmol/L CO2 26 LAB AGAP 9-18 mmol/L Anion Gap 16 LAB CA 8.5-10.2 mg/dL Calcium, Total 9.6 LAB GFRAA eGFR- Amer. >60 LAB GFRNAA . eGFR-All Other Races >60 Result Comment: eGFR (Estimated GFR) Units of measure: mL/min/1.73 meters squared eGFR is derived from the reexpressed MDRD Study equation using the following parameters: serum creatinine, age, gender and race. The creatinine assay has been calibrated to be traceable to IDMS. An eGFR <60 mL/min/1.73m2 for >3 months is consistent with chronic kidney disease. Refer to KDOQI guidelines for clinical interpretation. In patients with unstable renal function, e.g. those with acute kidney injury, the eGFR may not accurately reflect actual GFR. Performed By: #### PT, CBC, BMP, MG1 #### [facility] [address] [place], [place] [address] MAGNESIUM Collected: 03/16/2018 Status: F Source: [place] 2:14 PM [facility] REPOSITORY TYPE CODE TESTS RESULT OUT OF REFERENCE UNITS RANGE LAB MG 1.7-2.3 mg/dL Magnesium 1.8 Performed By: #### PT, CBC, BMP, MG1 #### [facility] [address] [place], [place] [address] EKG1 Observed: 03/16/2018 Status: F Source: [place] 1:49 PM [facility] REPOSITORY NAME : FOZIAPANDA PID : [id number] : 1940 Gender : Male Race : ORD : Procedure Date : Mar 16 2018 13:49:31 Edit Date : Mar 17 2018 08:45:56 Diagnosis:ATRIAL FIBRILLATION WITH PREMATURE VENTRICULAR COMPLEXES VERSUS ABERRANCY, WITH COUPLETS NON-SPECIFIC ST AND T WAVE CHANGES ABNORMAL ECG NO SIGNIFICANT CHANGE FROM PREVIOUS ECG Confirmed by JUAN CHIN MD ([id number]) on 03/17/2018 8:45:53 AM Ventricular Rate : 73 BPM Atrial Rate : 108 BPM QRS Duration : 96 ms Q-T Interval : 400 ms QTC Calculation(Bezet) : 441 ms R Nebo : 34 degrees T Nebo : -13 degrees Test Reason : Location : 136 : [place] Overread By : JUAN CHIN MD Edited By : JUAN CHIN MD Referred By : Enzo CHIN Acquired by : JOI EKG1 Observed: 03/16/2018 Status: F Source: [place] 1:48 PM [facility] REPOSITORY NAME : PANDA FLOYD PID : [id number] : 1940 Gender : Male Race : ORD : Procedure Date : Mar 16 2018 13:48:45 Edit Date : Mar 17 2018 08:44:31 Diagnosis:ATRIAL FIBRILLATION WITH PREMATURE VENTRICULAR COMPLEXES NON-SPECIFIC ST AND T WAVE CHANGES ABNORMAL ECG ATRIAL FIBRILLATION HAS REPLACED SINUS RHYTHM Confirmed by JUAN CHIN MD ([id number]) on 03/17/2018 8:44:30 AM Ventricular Rate : 71 BPM Atrial Rate : 93 BPM QRS Duration : 92 ms Q-T Interval : 434 ms QTC Calculation(Bezet) : 471 ms R Nebo : 30 degrees T Nebo : -8 degrees Test Reason : Location : 136 : [place] Overread By : JUAN CHIN MD Edited By : JUAN CHIN MD Referred By : Enzo CHIN Acquired by : JOI, PROGRESS Observed: 03/16/2018 Status: COMPLETED Source: [place] 1:42 PM [facility] REPOSITORY HNO ID: [id number] Author: Juan Chin Service: (none) Author Type: Physician Type: Progress Notes Filed: 03/16/2018 5:13 PM Note Text: PERTINENT CARDIAC HISTORY Abnormal EKG Hypertension Hyperlipidemia Diabetes PAF ADHERENCE TO GUIDELINES ANAMARIA-I or ARB for HF with prior LVEF<40 (NQF 0081) - CRF ASA or Plavix for ASHD (NQF 0067) - N/A Beta armando for ASHD with prior [place] or prior LVEF<40 (NQF 0070) - N/A Beta armando for HF with prior LVEF<40 (NQF 0083) - N/A ANAMARIA-I or ARB for ASHD with DM or prior LVEF<40 (NQF 0066) - N/A Statin therapy for ASHD or FHL or DM - N/A BMI documented and plan if >25 (NQF 0421) - lifestyle recommendation form Tobacco use screening and referral (NQF 0028) - lifestyle recommendation form Recommendation for whole food, plant based diet - lifestyle recommendation form CLINICAL IMPRESSION/PLAN: Panda Floyd desires return to sinus rhythm. He will be referred to [facility] for cardioversion. He has declined initiation of antiarrhythmic drug and voices understanding that his atrial fibrillation might recur. Labs will be checked today. He's been advised to restrict his sodium to get his edema under better control. I will arrange follow-up one week after his cardioversion. Written and verbal health teaching given to patient, patient verbalizes understanding and agrees with treatment plan. DIAGNOSIS FOR VISIT: Atrial fibrillation HISTORY OF PRESENT ILLNESS Panda Floyd returns for follow-up of his atrial fibrillation. He has now been 4 weeks with therapeutic anticoagulation. He desires cardioversion. He reports no significant improvement in his exercise tolerance. He's had no chest discomfort. His edema has been worse over the last several days as he has been eating fair food and has not been watching his sodium. He denies syncope, TIAs, claudication. He is unaware of his heart rhythm. ALLERGIES: ALLERGIES No Known Allergies CURRENT OUTPATIENT MEDICATIONS: warfarin (COUMADIN) 3 mg tablet Take 1 tablet by mouth once daily. furosemide (LASIX) 20 mg tablet Take 1 tablet by mouth once daily. As needed warfarin (COUMADIN) 2 mg tablet Take 1 tablet by mouth daily as directed. Or as directed metoprolol succinate ER (TOPROL XL) 50 mg 24 hr tablet Take 100 mg by mouth once daily. warfarin (COUMADIN) 5 mg tablet Take 1 tablet by mouth once daily. metFORMIN (GLUCOPHAGE) 500 mg tablet TAKE 1 TABLET BY MOUTH TWICE DAILY WITH MEALS albuterol HFA (VENTOLIN HFA) 90 mcg/actuation inhaler Inhale 2 Puffs as instructed every 4 hours as needed for Wheezing/Shortness of Breath. Hydrochlorothiazide 12.5 mg capsule Take 1 capsule by mouth once daily. oxybutynin ER (DITROPAN XL) 10 mg 24 hr tablet Take 2 tablets by mouth once daily. allopurinol (ZYLOPRIM) 300 mg tablet Take 1 tablet by mouth once daily. For gout. amLODIPine (NORVASC) 5 mg tablet Take 1 tablet by mouth once daily. aspirin, enteric coated (ECOTRIN LOW STRENGTH) 81 mg EC tablet Take 1 tablet by mouth once daily. PHYSICAL EXAMINATION: VITAL SIGNS: BP 133/76 Pulse 82 Wt 261 lb (118.4kg) Chest: Clear to percussion and auscultation. Trachea is midline. Air entry is equal. Cardiac: Irregularly irregular rhythm. S1 and S2 are normal. PMI is nondisplaced. There is a soft systolic ejection murmur. Carotids are brisk without bruits. JVP is less than 10 cm. Abdomen: Soft and nontender. There are no pulsatile masses or bruits. No liver enlargement. Bowel sounds are active. Extremities: 2 plus pedal edema. Pulses are intact and symmetrical. EKG confirms presence of atrial fibrillation with controlled response. There is no significant change. Last INR was 2.2 and has been therapeutic since 02/10. Electronically Signed: Juan Chin MD March 16, 2018 1:42 PM CC: Man Cha MD CNOV Observed: 03/16/2018 Status: COMPLETED Source: [place] 1:15 PM [facility] REPOSITORY Office Visit (CAWSTR) PANDA FLOYD ([id number]) 1940 M Date Time Provider Department 03/16/18 1:15 PM JUAN CHINWSTR During your visit today, we recorded the following information about you: Pulse Blood pressure Weight 82/minute 133/76 118.4 kg Marilu Burdick Ma 03/16/2018 1:26 PM Signed AMB ROOMING INTAKE FLOWSHEET DATA Risk Screening Do you have concerns about personal safety or safety in the home?: No Juan Chin MD 03/16/2018 5:13 PM Signed PERTINENT CARDIAC HISTORY Abnormal EKG Hypertension Hyperlipidemia Diabetes PAF ADHERENCE TO GUIDELINES ANAMARIA-I or ARB for HF with prior LVEF<40 (NQF 0081) - CRF ASA or Plavix for ASHD (NQF 0067) - N/A Beta armando for ASHD with prior [place] or prior LVEF<40 (NQF 0070) - N/A Beta armando for HF with prior LVEF<40 (NQF 0083) - N/A ANAMARIA-I or ARB for ASHD with DM or prior LVEF<40 (NQF 0066) - N/A Statin therapy for ASHD or FHL or DM - N/A BMI documented and plan if >25 (NQF 0421) - lifestyle recommendation form Tobacco use screening and referral (NQF 0028) - lifestyle recommendation form Recommendation for whole food, plant based diet - lifestyle recommendation form CLINICAL IMPRESSION/PLAN: Panda Floyd desires return to sinus rhythm. He will be referred to [facility] for cardioversion. He has declined initiation of antiarrhythmic drug and voices understanding that his atrial fibrillation might recur. Labs will be checked today. He's been advised to restrict his sodium to get his edema under better control. I will arrange follow-up one week after his cardioversion. Written and verbal health teaching given to patient, patient verbalizes understanding and agrees with treatment plan. DIAGNOSIS FOR VISIT: Atrial fibrillation HISTORY OF PRESENT ILLNESS Panda Floyd returns for follow-up of his atrial fibrillation. He has now been 4 weeks with therapeutic anticoagulation. He desires cardioversion. He reports no significant improvement in his exercise tolerance. He's had no chest discomfort. His edema has been worse over the last several days as he has been eating fair food and has not been watching his sodium. He denies syncope, TIAs, claudication. He is unaware of his heart rhythm. ALLERGIES: ALLERGIES No Known Allergies CURRENT OUTPATIENT MEDICATIONS: warfarin (COUMADIN) 3 mg tablet Take 1 tablet by mouth once daily. furosemide (LASIX) 20 mg tablet Take 1 tablet by mouth once daily. As needed warfarin (COUMADIN) 2 mg tablet Take 1 tablet by mouth daily as directed. Or as directed metoprolol succinate ER (TOPROL XL) 50 mg 24 hr tablet Take 100 mg by mouth once daily. warfarin (COUMADIN) 5 mg tablet Take 1 tablet by mouth once daily. metFORMIN (GLUCOPHAGE) 500 mg tablet TAKE 1 TABLET BY MOUTH TWICE DAILY WITH MEALS albuterol HFA (VENTOLIN HFA) 90 mcg/actuation inhaler Inhale 2 Puffs as instructed every 4 hours as needed for Wheezing/Shortness of Breath. Hydrochlorothiazide 12.5 mg capsule Take 1 capsule by mouth once daily. oxybutynin ER (DITROPAN XL) 10 mg 24 hr tablet Take 2 tablets by mouth once daily. allopurinol (ZYLOPRIM) 300 mg tablet Take 1 tablet by mouth once daily. For gout. amLODIPine (NORVASC) 5 mg tablet Take 1 tablet by mouth once daily. aspirin, enteric coated (ECOTRIN LOW STRENGTH) 81 mg EC tablet Take 1 tablet by mouth once daily. PHYSICAL EXAMINATION: VITAL SIGNS: BP 133/76 Pulse 82 Wt 261 lb (118.4kg) Chest: Clear to percussion and auscultation. Trachea is midline. Air entry is equal. Cardiac: Irregularly irregular rhythm. S1 and S2 are normal. PMI is nondisplaced. There is a soft systolic ejection murmur. Carotids are brisk without bruits. JVP is less than 10 cm. Abdomen: Soft and nontender. There are no pulsatile masses or bruits. No liver enlargement. Bowel sounds are active. Extremities: 2 plus pedal edema. Pulses are intact and symmetrical. EKG confirms presence of atrial fibrillation with controlled response. There is no significant change. Last INR was 2.2 and has been therapeutic since 02/10. Electronically Signed: Juan Chin MD March 16, 2018 1:42 PM CC: MD Juan Cerda MD 03/16/2018 1:43 PM Signed LIFESTYLE CHANGE A healthy lifestyle is the most important component of your overall treatment plan. Please give serious thought to the following areas and commit to making intermediate manager changes. EAT A WHOLE FOOD, PLANT BASED DIET The nutrition your body gets is more important than the medicine you take. What matters most is the overall way you eat. We encourage you to minimize the use of animal products (which include dairy and all meats except fatty fish) and use whole, unprocessed plant foods to provide your protein, vitamins and other nutrients. We have a lot of information to share with you on this topic. This is not a diet. It is a way of life that you will keep with you. EXERCISE REGULARLY It is not important to spend hours in the gym, lifting weights and perspiring heavily. A total of 2-3 hours per week of aerobic (causing you to be moderately short of breath) exercise is sufficient to improve your health. Talk to us before you begin a new exercise program, if you have heart disease or experience shortness of breath or chest pain. REDUCE STRESS Chronic emotional and physical stress leads to disease. Ways of reducing stress include meditation, visualization, prayer, yoga and other forms of relaxation therapy. Consistency is the phan. Find a technique that works for you and do it every day. CULTIVATE RELATIONSHIPS Loneliness and isolation have a major negative impact on health. Seek out others who can love, care for and nurture you. Avoid hurtful relationships. MAINTAIN IDEAL BODY WEIGHT The best way to do this is to do all the things above. Our bodies naturally find the right weight if we keep moving and feed ourselves the right food. If your BMI is greater than 25, we strongly recommend a referral to a weight management program. Please speak to us or your family physician about available programs. AVOID NICOTINE IN ALL FORMS This includes all tobacco products, whether chewed, smoked, vaped, or rubbed on the skin. Smoking cessation programs, which can make use of tobacco substitutes, medications to suppress cravings and behavior management, are available. Please contact your family physician about programs in your area. Referring Provider: JUAN CHIN [[id number]] Allergies As of Date: 03/16/2018 (No Known Allergies) Date Reviewed: 03/16/2018 Reviewed by: Marilu Burdick Ma - Fully Assessed Reason for Visit: Established Patient [175] Cmt: 1 month follow up AF/Hypertension Primary Visit Diagnosis:PAF (paroxysmal atrial fibrillation) (HCC) [I48.0] Order(s):CBC [SQCBC] Order #: [id number] FUTURE MAGNESIUM BLD [SQMG1] Order #: [id number] FUTURE BASIC METABOLIC PNL [SQBMP] Order #: [id number] FUTURE PROTHROMBIN TIME/PT [SQPT] Order #: [id number] FUTURE ECG COMPLETE W INTERPRETATION [ECG01] Order #: [id number] FUTURE Prescriptions as of 03/16/2018 Sig: WARFARIN 3 MG TABLET Take 1 tablet by mouth once d* FUROSEMIDE 20 MG TABLET Take 1 tablet by mouth once d* WARFARIN 2 MG TABLET Take 1 tablet by mouth daily * METOPROLOL SUCCINATE ER 50 MG* Take 100 mg by mouth once precious* WARFARIN 5 MG TABLET Take 1 tablet by mouth once d* METFORMIN 500 MG TABLET TAKE 1 TABLET BY MOUTH TWICE * ALBUTEROL SULFATE HFA 90 MCG/* Inhale 2 Puffs as instructed * HYDROCHLOROTHIAZIDE 12.5 MG C* Take 1 capsule by mouth once * OXYBUTYNIN CHLORIDE ER 10 MG * Take 2 tablets by mouth once * ALLOPURINOL 300 MG TABLET Take 1 tablet by mouth once d* AMLODIPINE 5 MG TABLET Take 1 tablet by mouth once d* ASPIRIN 81 MG TABLET,DELAYED * Take 1 tablet by mouth once d* Patient not taking: Reported on 01/07/2018 Problem List As Of Date 03/16/2018 Noted Resolved Essential hypertension [I10] INVALID FOR* BENIGN HYPERTENSION [I10] 01/28/2006 DYSMETABOLIC SYNDROME X [E88.81] INVALID FOR*09/06/2007 Other malignant neoplasm of other specified sit*INVALID FOR*05/07/2011 Calculus of kidney [N20.0] INVALID FOR*05/07/2011 HEMATURIA [599.7] INVALID FOR*09/08/2006 PAIN ABDOMEN( Left Lower Quadrant) [R10.32] INVALID FOR*09/08/2006 Other specified disorders of pelvic joint [M25.*INVALID FOR*05/07/2011 Special Screening for Malignant Neoplasms, [place]*INVALID FOR*10/11/2009 POLYP COLON [D12.6] INVALID FOR*10/11/2009 NEURALGIA/NEURITIS NOS [NCM6431] INVALID FOR* OBESITY NOS [E66.9] INVALID FOR* UMBILICAL HERNIA W/O GANGRENE/OBSTRUCTION [K42.*INVALID FOR*12/25/2010 PERSONAL HISTORY OF COLONIC POLYPS [Z86.010] INVALID FOR*05/07/2011 BPH (benign prostatic hypertrophy) with urinary*INVALID FOR* 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*10/11/2009 COPD (Chronic Obstructive Pulmonary Disease) [J*INVALID FOR* Smoker [F17.200] INVALID FOR* Cough due to angiotensin-converting enzyme inhi*INVALID FOR*03/29/2015 Metabolic syndrome [E88.81] INVALID FOR* Ganglion cyst [M67.40] INVALID FOR*03/29/2015 LBP (low back pain) [M54.5] INVALID FOR* Spinal stenosis [M48.00] INVALID FOR* Personal history of colonic polyps [Z86.010] INVALID FOR* Hematoma [T14.8XXA] INVALID FOR*03/29/2015 Gout [M10.9] INVALID FOR* Nocturia [R35.1] INVALID FOR* Frequency of micturition [R35.0] INVALID FOR*04/13/2016 Urgency of urination [R39.15] INVALID FOR* Type 2 diabetes mellitus with complication, wit*INVALID FOR* Chronic bronchitis (HCC) [J42] INVALID FOR* PAF (paroxysmal atrial fibrillation) (HCC) [I48*INVALID FOR* Other instructions from your clinician: LIFESTYLE CHANGE A healthy lifestyle is the most important component of your overall treatment plan. Please give serious thought to the following areas and commit to making mcc changes. EAT A WHOLE FOOD, PLANT BASED DIET The nutrition your body gets is more important than the medicine you take. What matters most is the overall way you eat. We encourage you to minimize the use of animal products (which include dairy and all meats except fatty fish) and use whole, unprocessed plant foods to provide your protein, vitamins and other nutrients. We have a lot of information to share with you on this topic. This is not a diet. It is a way of life that you will keep with you. EXERCISE REGULARLY It is not important to spend hours in the gym, lifting weights and perspiring heavily. A total of 2-3 hours per week of aerobic (causing you to be moderately short of breath) exercise is sufficient to improve your health. Talk to us before you begin a new exercise program, if you have heart disease or experience shortness of breath or chest pain. REDUCE STRESS Chronic emotional and physical stress leads to disease. Ways of reducing stress include meditation, visualization, prayer, yoga and other forms of relaxation therapy. Consistency is the phan. Find a technique that works for you and do it every day. CULTIVATE RELATIONSHIPS Loneliness and isolation have a major negative impact on health. Seek out others who can love, care for and nurture you. Avoid hurtful relationships. MAINTAIN IDEAL BODY WEIGHT The best way to do this is to do all the things above. Our bodies naturally find the right weight if we keep moving and feed ourselves the right food. If your BMI is greater than 25, we strongly recommend a referral to a weight management program. Please speak to us or your family physician about available programs. AVOID NICOTINE IN ALL FORMS This includes all tobacco products, whether chewed, smoked, vaped, or rubbed on the skin. Smoking cessation programs, which can make use of tobacco substitutes, medications to suppress cravings and behavior management, are available. Please contact your family physician about programs in your area. Visit Notes: >> Marilu Gennaro Noland WedMar 16, 2018 1:18 PM Status: Signed AMB ROOMING INTAKE FLOWSHEET DATA Risk Screening Do you have concerns about personal safety or safety in the home?: No Encounter Status:Closed by JUAN CHIN MD on 03/16/18 PROGRESS Observed: 02/10/2018 Status: COMPLETED Source: [place] 8:57 AM [facility] REPOSITORY HNO ID: [id number] Author: Juan Chin Service: (none) Author Type: Physician Type: Progress Notes Filed: 02/10/2018 11:03 AM Note Text: PERTINENT CARDIAC HISTORY Abnormal EKG Hypertension Hyperlipidemia Diabetes PAF ADHERENCE TO GUIDELINES ANAMARIA-I or ARB for HF with prior LVEF<40 (NQF 0081) - CRF ASA or Plavix for ASHD (NQF 0067) - N/A Beta armando for ASHD with prior [place] or prior LVEF<40 (NQF 0070) - N/A Beta armando for HF with prior LVEF<40 (NQF 0083) - N/A ANAMARIA-I or ARB for ASHD with DM or prior LVEF<40 (NQF 0066) - N/A Statin therapy for ASHD or FHL or DM - N/A BMI documented and plan if >25 (NQF 0421) - lifestyle recommendation form Tobacco use screening and referral (NQF 0028) - lifestyle recommendation form Recommendation for whole food, plant based diet - lifestyle recommendation form CLINICAL IMPRESSION/PLAN: Panda Floyd has atrial fibrillation which is persistent. Rate is well-controlled. There is mild volume overload at this time. Blood pressure at home has been in the 130-140 range. I asked him to have INR done. He is likely nearing the time when we can proceed with cardioversion. He would like to avoid being on an antiarrhythmic drug at this time. I discussed the possibility that his atrial fibrillation might recur. I will tentatively see him in one month. If we can proceed with cardioversion prior to that, we will do so. His blood pressure is borderline elevated. We will consider adding losartan back to his regimen. I've asked him to update me with vital signs next week. Written and verbal health teaching given to patient, patient verbalizes understanding and agrees with treatment plan. DIAGNOSIS FOR VISIT: Atrial fibrillation Hypertension HISTORY OF PRESENT ILLNESS Panda Floyd returns for follow-up of his recently detected atrial fibrillation. He has not had his INRs checked as recommended. He reports that his exercise tolerance is still limited, but stable. He's had minimal edema. He denies chest discomfort. He has had no syncope, TIAs, amaurosis. He is unaware of his heart rhythm. He denies any abnormal bleeding. He's had minimal increase in bruising. He has discontinued aspirin. ALLERGIES: ALLERGIES No Known Allergies CURRENT OUTPATIENT MEDICATIONS: warfarin (COUMADIN) 2 mg tablet Take 1 tablet by mouth daily as directed. Or as directed metoprolol succinate ER (TOPROL XL) 50 mg 24 hr tablet Take 100 mg by mouth once daily. metFORMIN (GLUCOPHAGE) 500 mg tablet TAKE 1 TABLET BY MOUTH TWICE DAILY WITH MEALS albuterol HFA (VENTOLIN HFA) 90 mcg/actuation inhaler Inhale 2 Puffs as instructed every 4 hours as needed for Wheezing/Shortness of Breath. Hydrochlorothiazide 12.5 mg capsule Take 1 capsule by mouth once daily. oxybutynin ER (DITROPAN XL) 10 mg 24 hr tablet Take 2 tablets by mouth once daily. allopurinol (ZYLOPRIM) 300 mg tablet Take 1 tablet by mouth once daily. For gout. amLODIPine (NORVASC) 5 mg tablet Take 1 tablet by mouth once daily. furosemide (LASIX) 20 mg tablet Take 1 tablet by mouth once daily. As needed warfarin (COUMADIN) 5 mg tablet Take 1 tablet by mouth once daily. aspirin, enteric coated (ECOTRIN LOW STRENGTH) 81 mg EC tablet Take 1 tablet by mouth once daily. PHYSICAL EXAMINATION: VITAL SIGNS: BP 146/77 Pulse 82 Wt 257 lb 1.6 oz (116.6kg) Chest: Clear to percussion and auscultation. Trachea is midline. Air entry is equal. Cardiac: Irregularly irregular rhythm. S1 and S2 are normal. PMI is nondisplaced. There is a soft systolic ejection murmur. Carotids are brisk without bruits. JVP is less than 10 cm. Abdomen: Soft and nontender. There are no pulsatile masses or bruits. No liver enlargement. Bowel sounds are active. Extremities: 1 plus edema. Pulses are intact and symmetrical. EKG shows atrial fibrillation with controlled ventricular response. There is no significant change. Electronically Signed: Juan Chin MD February 10, 2018 8:57 AM CC: Man Cha MD CNOV Observed: 02/10/2018 Status: COMPLETED Source: [place] 8:30 AM [facility] REPOSITORY Office Visit (CAWSTR) PANDA FLOYD ([id number]) 1940 M Date Time Provider Department 02/10/18 8:30 AM JUAN CHIN CAWSTR During your visit today, we recorded the following information about you: Pulse Blood pressure Weight 82/minute 146/77 116.6 kg Juan Chin MD 02/10/2018 11:03 AM Signed PERTINENT CARDIAC HISTORY Abnormal EKG Hypertension Hyperlipidemia Diabetes PAF ADHERENCE TO GUIDELINES ANAMARIA-I or ARB for HF with prior LVEF<40 (NQF 0081) - CRF ASA or Plavix for ASHD (NQF 0067) - N/A Beta armando for ASHD with prior [place] or prior LVEF<40 (NQF 0070) - N/A Beta armando for HF with prior LVEF<40 (NQF 0083) - N/A ANAMARIA-I or ARB for ASHD with DM or prior LVEF<40 (NQF 0066) - N/A Statin therapy for ASHD or FHL or DM - N/A BMI documented and plan if >25 (NQF 0421) - lifestyle recommendation form Tobacco use screening and referral (NQF 0028) - lifestyle recommendation form Recommendation for whole food, plant based diet - lifestyle recommendation form CLINICAL IMPRESSION/PLAN: Panda Floyd has atrial fibrillation which is persistent. Rate is well-controlled. There is mild volume overload at this time. Blood pressure at home has been in the 130-140 range. I asked him to have INR done. He is likely nearing the time when we can proceed with cardioversion. He would like to avoid being on an antiarrhythmic drug at this time. I discussed the possibility that his atrial fibrillation might recur. I will tentatively see him in one month. If we can proceed with cardioversion prior to that, we will do so. His blood pressure is borderline elevated. We will consider adding losartan back to his regimen. I've asked him to update me with vital signs next week. Written and verbal health teaching given to patient, patient verbalizes understanding and agrees with treatment plan. DIAGNOSIS FOR VISIT: Atrial fibrillation Hypertension HISTORY OF PRESENT ILLNESS Panda Floyd returns for follow-up of his recently detected atrial fibrillation. He has not had his INRs checked as recommended. He reports that his exercise tolerance is still limited, but stable. He's had minimal edema. He denies chest discomfort. He has had no syncope, TIAs, amaurosis. He is unaware of his heart rhythm. He denies any abnormal bleeding. He's had minimal increase in bruising. He has discontinued aspirin. ALLERGIES: ALLERGIES No Known Allergies CURRENT OUTPATIENT MEDICATIONS: warfarin (COUMADIN) 2 mg tablet Take 1 tablet by mouth daily as directed. Or as directed metoprolol succinate ER (TOPROL XL) 50 mg 24 hr tablet Take 100 mg by mouth once daily. metFORMIN (GLUCOPHAGE) 500 mg tablet TAKE 1 TABLET BY MOUTH TWICE DAILY WITH MEALS albuterol HFA (VENTOLIN HFA) 90 mcg/actuation inhaler Inhale 2 Puffs as instructed every 4 hours as needed for Wheezing/Shortness of Breath. Hydrochlorothiazide 12.5 mg capsule Take 1 capsule by mouth once daily. oxybutynin ER (DITROPAN XL) 10 mg 24 hr tablet Take 2 tablets by mouth once daily. allopurinol (ZYLOPRIM) 300 mg tablet Take 1 tablet by mouth once daily. For gout. amLODIPine (NORVASC) 5 mg tablet Take 1 tablet by mouth once daily. furosemide (LASIX) 20 mg tablet Take 1 tablet by mouth once daily. As needed warfarin (COUMADIN) 5 mg tablet Take 1 tablet by mouth once daily. aspirin, enteric coated (ECOTRIN LOW STRENGTH) 81 mg EC tablet Take 1 tablet by mouth once daily. PHYSICAL EXAMINATION: VITAL SIGNS: BP 146/77 Pulse 82 Wt 257 lb 1.6 oz (116.6kg) Chest: Clear to percussion and auscultation. Trachea is midline. Air entry is equal. Cardiac: Irregularly irregular rhythm. S1 and S2 are normal. PMI is nondisplaced. There is a soft systolic ejection murmur. Carotids are brisk without bruits. JVP is less than 10 cm. Abdomen: Soft and nontender. There are no pulsatile masses or bruits. No liver enlargement. Bowel sounds are active. Extremities: 1 plus edema. Pulses are intact and symmetrical. EKG shows atrial fibrillation with controlled ventricular response. There is no significant change. Electronically Signed: Juan Chin MD February 10, 2018 8:57 AM CC: Man Cha MD Referring Provider: JUAN CHIN [[id number]] Allergies As of Date: 02/10/2018 (No Known Allergies) Date Reviewed: 02/10/2018 Reviewed by: Alfonso Elliott RN - Fully Assessed Reason for Visit: Recheck [92] Primary Visit Diagnosis:Hypertension, essential [I10] Other Visit Diagnosis:PAF (paroxysmal atrial fibrillation) ([facility]) [I48.0] Order(s):furosemide (LASIX) 20 mg tabletTake 1 tablet by mouth once daily. As neededDisp: Rfl: ECG COMPLETE W INTERPRETATION [ECG01] Order #: [id number] FUTURE Prescriptions as of 02/10/2018 Sig: WARFARIN 2 MG TABLET Take 1 tablet by mouth daily * METOPROLOL SUCCINATE ER 50 MG* Take 100 mg by mouth once precious* METFORMIN 500 MG TABLET TAKE 1 TABLET BY MOUTH TWICE * ALBUTEROL SULFATE HFA 90 MCG/* Inhale 2 Puffs as instructed * HYDROCHLOROTHIAZIDE 12.5 MG C* Take 1 capsule by mouth once * OXYBUTYNIN CHLORIDE ER 10 MG * Take 2 tablets by mouth once * ALLOPURINOL 300 MG TABLET Take 1 tablet by mouth once d* AMLODIPINE 5 MG TABLET Take 1 tablet by mouth once d* FUROSEMIDE 20 MG TABLET Take 1 tablet by mouth once d* WARFARIN 5 MG TABLET Take 1 tablet by mouth once d* ASPIRIN 81 MG TABLET,DELAYED * Take 1 tablet by mouth once d* Patient not taking: Reported on 01/07/2018 Problem List As Of Date 02/10/2018 Noted Resolved Essential hypertension [I10] INVALID FOR* BENIGN HYPERTENSION [I10] 01/28/2006 DYSMETABOLIC SYNDROME X [E88.81] INVALID FOR*09/06/2007 Other malignant neoplasm of other specified sit*INVALID FOR*05/07/2011 Calculus of kidney [N20.0] INVALID FOR*05/07/2011 HEMATURIA [599.7] INVALID FOR*09/08/2006 PAIN ABDOMEN( Left Lower Quadrant) [R10.32] INVALID FOR*09/08/2006 Other specified disorders of pelvic joint [M25.*INVALID FOR*05/07/2011 Special Screening for Malignant Neoplasms, [place]*INVALID FOR*10/11/2009 POLYP COLON [D12.6] INVALID FOR*10/11/2009 NEURALGIA/NEURITIS NOS [HTQ6719] INVALID FOR* OBESITY NOS [E66.9] INVALID FOR* UMBILICAL HERNIA W/O GANGRENE/OBSTRUCTION [K42.*INVALID FOR*12/25/2010 PERSONAL HISTORY OF COLONIC POLYPS [Z86.010] INVALID FOR*05/07/2011 BPH (benign prostatic hypertrophy) with urinary*INVALID FOR* 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*10/11/2009 COPD (Chronic Obstructive Pulmonary Disease) [J*INVALID FOR* Smoker [F17.200] INVALID FOR* Cough due to angiotensin-converting enzyme inhi*INVALID FOR*03/29/2015 Metabolic syndrome [E88.81] INVALID FOR* Ganglion cyst [M67.40] INVALID FOR*03/29/2015 LBP (low back pain) [M54.5] INVALID FOR* Spinal stenosis [M48.00] INVALID FOR* Personal history of colonic polyps [Z86.010] INVALID FOR* Hematoma [T14.8XXA] INVALID FOR*03/29/2015 Gout [M10.9] INVALID FOR* Nocturia [R35.1] INVALID FOR* Frequency of micturition [R35.0] INVALID FOR*04/13/2016 Urgency of urination [R39.15] INVALID FOR* Type 2 diabetes mellitus with complication, wit*INVALID FOR* Chronic bronchitis (HCC) [J42] INVALID FOR* PAF (paroxysmal atrial fibrillation) (HCC) [I48*INVALID FOR* Prescriptions ordered this encounter Disp Refills Start End FUROSEMIDE 20 MG TABLET 02/10/2018 Class: Med Update Route: ORAL Sig: Take 1 tablet by mouth once daily. As needed Encounter Status:Closed by JUAN CHIN MD on 02/10/18 OCCULT BLOOD DIAG. Collected: 01/18/2018 Status: F Source: [place] 9:59 AM [facility] REPOSITORY TYPE CODE TESTS RESULT OUT OF REFERENCE UNITS RANGE LAB OBSRCE Occult Stool Blood Source: LAB OBD Occult Negative Blood Diag. Performed By: #### OBDX #### [facility] [address] [place], [place] [address] CBC Collected: 01/07/2018 Status: F Source: [place] 3:24 PM [facility] REPOSITORY TYPE CODE TESTS RESULT OUT OF REFERENCE UNITS RANGE LAB WBC 3.70-11.00 k/uL WBC 10.32 LAB RBC 4.20-6.00 m/uL RBC 4.90 LAB HGB 13.0-17.0 g/dL Hemoglobin 14.7 LAB HCT 39.0-51.0 % Hematocrit 45.7 LAB MCV 80.0-100.0 fL MCV 93.3 LAB MCH 26.0-34.0 pG MCH 30.0 LAB MCHC 30.5-36.0 g/dL MCHC 32.2 LAB RDWCV 11.5-15.0 % RDW-CV 14.2 LAB PLTCT 150-400 k/uL Platelet Count 288 LAB MPV 9.0-12.7 fL MPV 9.9 LAB ABSNUC <0.01 k/uL Absolute nRBC <0.01 Performed By: #### CBC, PT, BMP #### [facility] [address] [place], [place] [address] PROTIME Collected: 01/07/2018 Status: F Source: [place] 3:24 PM [facility] REPOSITORY TYPE CODE TESTS RESULT OUT OF RANGE REFERENCE UNITS LAB PSEC 9.7-13.0 sec PT Sec 10.9 LAB INR 0.9-1.3 PT INR 1.1 Result Comment: Vitamin K Antagonist (VKA) Therapeutic Range: INR 2 to 3 (Target INR of 2.5) Note: For patients treated with VKA drugs, such as warfarin, the [place] [employer] 2012 Guideline recommends a therapeutic INR range of 2 to 3 (target INR of 2.5). This recommendation includes high-risk patients with antiphospholipid syndrome with previous arterial or venous thromboembolism, current-generation mechanical or bioprosthetic aortic heart valve replacement. Note: Patients with mechanical aortic valve replacement and additional risk factors for thromboembolic events (atrial fibrillation, previous thromboembolism, LV dysfunction, hypercoagulable conditions) or an older generation mechanical AVR (i.e., ball in-Cage) or any mechanical MVR should have a INR therapeutic range of 2.5 to 3.5 (target INR of 3). Tomasz WING, et al. Chest 2012, 141:7S-47S Devaughn RA, et al. [facility] 2017, 70: 252-289 Performed By: #### CBC, PT, BMP #### [facility] [address] [place], [place] [address] BASIC METABOLIC PANL Collected: 01/07/2018 Status: F Source: [place] 3:24 PM [facility] REPOSITORY TYPE CODE TESTS RESULT OUT OF REFERENCE UNITS RANGE LAB GLU 74-99 mg/dL High Glucose 145 Result Comment: The [place] [employer] (ADA) provides guidance for cutoff values for fasting glucose and random glucose. The ADA defines fasting as no caloric intake for at least 8 hours. Fas ting plasma glucose results between 100 to 125 mg/dL indicate increased risk for diabetes (prediabetes). Fasting plasma glucose results greater than or equal to 126 mg/dL meet the criteria for diagnosis of diabetes. In the absence of unequivocal hyperglycemia, results should be confirmed by repeat testing. In a patient with classic symptoms of hyperglycemia or hyperglycemic crisis, random plasma glucose results greater than or equal to 200 mg/dL meet the criteria for diagnosis of diabetes. Reference: Standards of Medical Care in Diabetes 2016, [place] [employer] Association. Diabetes Care. 2016.39(Suppl 1). LAB BUN 9-24 mg/dL BUN 17 LAB CRET 0.73-1.22 mg/dL Creatinine 1.19 LAB NA 136-144 mmol/L Sodium 139 LAB K 3.7-5.1 mmol/L Potassium 3.9 LAB CL 97-105 mmol/L Chloride 98 LAB CO2 22-30 mmol/L CO2 25 LAB AGAP 9-18 mmol/L Anion Gap 16 LAB CA 8.5-10.2 mg/dL Calcium, Total 9.1 LAB GFRAA eGFR- Amer. >60 LAB GFRNAA . eGFR-All Other Races 59 Result Comment: eGFR (Estimated GFR) Units of measure: mL/min/1.73 meters squared eGFR is derived from the reexpressed MDRD Study equation using the following parameters: serum creatinine, age, gender and race. The creatinine assay has been calibrated to be traceable to IDMS. An eGFR <60 mL/min/1.73m2 for >3 months is consistent with chronic kidney disease. Refer to KDOQI guidelines for clinical interpretation. In patients with unstable renal function, e.g. those with acute kidney injury, the eGFR may not accurately reflect actual GFR. Performed By: #### CBC, PT, BMP #### [facility] [address] [place] [id number] PROGRESS Observed: 01/07/2018 Status: COMPLETED Source: [place] 2:52 PM [facility] REPOSITORY HNO ID: [id number] Author: Juan Chin Service: (none) Author Type: Physician Type: Progress Notes Filed: 01/07/2018 5:48 PM Note Text: PERTINENT CARDIAC HISTORY Abnormal EKG Hypertension Hyperlipidemia Diabetes PAF ADHERENCE TO GUIDELINES ANAMARIA-I or ARB for HF with prior LVEF<40 (NQF 0081) - N/A ASA or Plavix for ASHD (NQF 0067) - N/A Beta armando for ASHD with prior [place] or prior LVEF<40 (NQF 0070) - N/A Beta armando for HF with prior LVEF<40 (NQF 0083) - N/A ANAMARIA-I or ARB for ASHD with DM or prior LVEF<40 (NQF 0066) - N/A Statin therapy for ASHD or FHL or DM - N/A BMI documented and plan if >25 (NQF 0421) - lifestyle recommendation form Tobacco use screening and referral (NQF 0028) - lifestyle recommendation form Recommendation for whole food, plant based diet - lifestyle recommendation form CLINICAL IMPRESSION/PLAN: Panda Floyd has atrial fibrillation of uncertain duration. We discussed the pathophysiology, treatment and prognosis in depth. He has no contraindication to warfarin. He will be started at 5 milligrams daily. Baseline INR will be obtained today, as well as CBC. Stool occult blood will be obtained. Aspirin will be discontinued once his INR is therapeutic. We will arrange INR to be done in 5 days. I would like to manage for the next month until we determine whether he will be a candidate for cardioversion. His rate is well-controlled at this time and he will continue his current medication. I asked him to call me with vital signs in the next week. If possible, his losartan should be restarted. His mildly decreased renal function is not a contraindication. Written and verbal health teaching given to patient, patient verbalizes understanding and agrees with treatment plan. DIAGNOSIS FOR VISIT: PAF Hypertension HISTORY OF PRESENT ILLNESS Panda Floyd returns for follow-up visit. He was recently found to have an irregular pulse. EKG in Dr. Cha's office showed atrial fibrillation. His aspirin was increased. He is unaware of his heart rhythm. He has had no recent chest discomfort. He denies orthopnea. His edema has been stable. He's had no syncope, palpitations, TIAs, amaurosis or claudication. He denies any history of bleeding disorder. He tends to bruise easily. Losartan was recently discontinued due to an increased creatinine. ALLERGIES: ALLERGIES No Known Allergies CURRENT OUTPATIENT MEDICATIONS: aspirin 325 mg tablet Take 325 mg by mouth once daily. metoprolol succinate ER (TOPROL XL) 50 mg 24 hr tablet Take 100 mg by mouth once daily. metFORMIN (GLUCOPHAGE) 500 mg tablet TAKE 1 TABLET BY MOUTH TWICE DAILY WITH MEALS albuterol HFA (VENTOLIN HFA) 90 mcg/actuation inhaler Inhale 2 Puffs as instructed every 4 hours as needed for Wheezing/Shortness of Breath. Hydrochlorothiazide 12.5 mg capsule Take 1 capsule by mouth once daily. oxybutynin ER (DITROPAN XL) 10 mg 24 hr tablet Take 2 tablets by mouth once daily. allopurinol (ZYLOPRIM) 300 mg tablet Take 1 tablet by mouth once daily. For gout. amLODIPine (NORVASC) 5 mg tablet Take 1 tablet by mouth once daily. aspirin, enteric coated (ECOTRIN LOW STRENGTH) 81 mg EC tablet Take 1 tablet by mouth once daily. PAST MEDICAL HISTORY Diagnosis Date - Benign neoplasm of colon - BPH (benign prostatic hyperplasia) - Essential hypertension, benign - Osteoarthritis - Personal history of colonic polyps - Spinal stenosis of lumbar region PAST SURGICAL HISTORY Procedure Laterality Date - CARPAL TUNNEL bilateral - COLONOSCOP W/ OR W/O [facility] SPEC 4/13/12 repeat 5 years - COLONOSCOPY W/BX 09/24/06 Diminutive polpys x 2 - COLONOSCOPY W/BX 10/12/08 Diminutive polyp of mid sigmoid - KNEE SURGERY HX 08/20/15 right-arthroplasty Dr. Vásquez - MAL LESION FACE,EAR,EYEL 1.1-2CM 05/26/06 Left preauricular BCC - MAL LESION FACE,EAR,EYEL <5MM 01/09/09 Exc. right posterior ear helix skin lesion - PAST SURGICAL HISTORY OF laminectomy - REPAIR UMBILICAL BRINA,5+Y/O,REDUC 10-31-08 - TOTAL KNEE REPLACEMENT 01/09/2004 Knee replacement, total, left No family history on file. Social History Marital status: Spouse name: Years of education: Number of children: Social History Main Topics Smoking status: Current Every Day Smoker Packs/day: 0.00 Years: 0.00 Types: Pipe Smokeless tobacco: Never Used Comment: smokes a pipe- 1 pipe per day. Alcohol use: Yes Comment: 1 drink per month Drug use: No REVIEW OF SYSTEMS: General: No chills, fever, weight loss, night sweats. Respiratory: No productive cough. Cardiac: As noted above. GI: No melena. : No dysuria. Musculoskeletal: No myalgias. PHYSICAL EXAMINATION: S/he is alert and in no distress. VITAL SIGNS: BP 138/83 Pulse 79 Wt 255 lb (115.7kg) SHEENT: Skin is warm and dry. No xanthelasmas appreciated. Pharynx is benign. There is no oral cyanosis. Neck: supple. No adenopathy or thyroid enlargement. Chest: Clear to percussion and auscultation. Trachea is midline. Air entry is equal. There is no chest wall tenderness. Cardiac: Irregularly irregular rhythm. S1 and S2 are normal. PMI is nondisplaced. There is a soft systolic ejection murmur. No click is heard. Carotids are brisk without bruits. JVP is less than 10 cm. Abdomen: Soft and nontender. There are no pulsatile masses or bruits. No liver enlargement. Bowel sounds are active. Extremities: No edema. Pulses are intact and symmetrical. No clubbing or cyanosis. No femoral bruits. Neurologic: Grossly normal motor and sensory. S/he is alert and oriented x4. EKG demonstrates atrial fibrillation with controlled ventricular response. There is no evidence of ischemia. Recent labs were reviewed. Basic profile is noted for a creatinine of 1.3. Magnesium and TSH were normal. Recent echocardiogram shows normal left ventricular function. There is no significant valvular disease. Electronically Signed: Juan Chin MD January 07, 2018 2:52 PM CC:No primary care provider on file. CNOV Observed: 01/07/2018 Status: COMPLETED Source: [place] 2:00 PM [facility] REPOSITORY Office Visit (AGCARDWST) PANDA FLOYD ([id number]) 1940 M Date Time Provider Department 01/07/18 2:00 PM JUAN CHIN During your visit today, we recorded the following information about you: Pulse Blood pressure Weight 79/minute 138/83 115.7 kg Juan Chin MD 01/07/2018 5:48 PM Signed PERTINENT CARDIAC HISTORY Abnormal EKG Hypertension Hyperlipidemia Diabetes PAF ADHERENCE TO GUIDELINES ANAMARIA-I or ARB for HF with prior LVEF<40 (NQF 0081) - N/A ASA or Plavix for ASHD (NQF 0067) - N/A Beta armando for ASHD with prior [place] or prior LVEF<40 (NQF 0070) - N/A Beta armando for HF with prior LVEF<40 (NQF 0083) - N/A ANAMARIA-I or ARB for ASHD with DM or prior LVEF<40 (NQF 0066) - N/A Statin therapy for ASHD or FHL or DM - N/A BMI documented and plan if >25 (NQF 0421) - lifestyle recommendation form Tobacco use screening and referral (NQF 0028) - lifestyle recommendation form Recommendation for whole food, plant based diet - lifestyle recommendation form CLINICAL IMPRESSION/PLAN: Panda Floyd has atrial fibrillation of uncertain duration. We discussed the pathophysiology, treatment and prognosis in depth. He has no contraindication to warfarin. He will be started at 5 milligrams daily. Baseline INR will be obtained today, as well as CBC. Stool occult blood will be obtained. Aspirin will be discontinued once his INR is therapeutic. We will arrange INR to be done in 5 days. I would like to manage for the next month until we determine whether he will be a candidate for cardioversion. His rate is well-controlled at this time and he will continue his current medication. I asked him to call me with vital signs in the next week. If possible, his losartan should be restarted. His mildly decreased renal function is not a contraindication. Written and verbal health teaching given to patient, patient verbalizes understanding and agrees with treatment plan. DIAGNOSIS FOR VISIT: PAF Hypertension HISTORY OF PRESENT ILLNESS Panda Floyd returns for follow-up visit. He was recently found to have an irregular pulse. EKG in Dr. Cha's office showed atrial fibrillation. His aspirin was increased. He is unaware of his heart rhythm. He has had no recent chest discomfort. He denies orthopnea. His edema has been stable. He's had no syncope, palpitations, TIAs, amaurosis or claudication. He denies any history of bleeding disorder. He tends to bruise easily. Losartan was recently discontinued due to an increased creatinine. ALLERGIES: ALLERGIES No Known Allergies CURRENT OUTPATIENT MEDICATIONS: aspirin 325 mg tablet Take 325 mg by mouth once daily. metoprolol succinate ER (TOPROL XL) 50 mg 24 hr tablet Take 100 mg by mouth once daily. metFORMIN (GLUCOPHAGE) 500 mg tablet TAKE 1 TABLET BY MOUTH TWICE DAILY WITH MEALS albuterol HFA (VENTOLIN HFA) 90 mcg/actuation inhaler Inhale 2 Puffs as instructed every 4 hours as needed for Wheezing/Shortness of Breath. Hydrochlorothiazide 12.5 mg capsule Take 1 capsule by mouth once daily. oxybutynin ER (DITROPAN XL) 10 mg 24 hr tablet Take 2 tablets by mouth once daily. allopurinol (ZYLOPRIM) 300 mg tablet Take 1 tablet by mouth once daily. For gout. amLODIPine (NORVASC) 5 mg tablet Take 1 tablet by mouth once daily. aspirin, enteric coated (ECOTRIN LOW STRENGTH) 81 mg EC tablet Take 1 tablet by mouth once daily. PAST MEDICAL HISTORY Diagnosis Date - Benign neoplasm of colon - BPH (benign prostatic hyperplasia) - Essential hypertension, benign - Osteoarthritis - Personal history of colonic polyps - Spinal stenosis of lumbar region PAST SURGICAL HISTORY Procedure Laterality Date - CARPAL TUNNEL bilateral - COLONOSCOP W/ OR W/O [facility] SPEC 12/04/11 repeat 5 years - COLONOSCOPY W/BX 09/24/06 Diminutive polpys x 2 - COLONOSCOPY W/BX 10/12/08 Diminutive polyp of mid sigmoid - KNEE SURGERY HX 08/20/15 right-arthroplasty Dr. Vásquez - MAL LESION FACE,EAR,EYEL 1.1-2CM 05/26/06 Left preauricular BCC - MAL LESION FACE,EAR,EYEL <5MM 01/09/09 Exc. right posterior ear helix skin lesion - PAST SURGICAL HISTORY OF laminectomy - REPAIR UMBILICAL BRINA,5+Y/O,REDUC 10-31-08 - TOTAL KNEE REPLACEMENT 01/09/2004 Knee replacement, total, left No family history on file. Social History Marital status: Spouse name: Years of education: Number of children: Social History Main Topics Smoking status: Current Every Day Smoker Packs/day: 0.00 Years: 0.00 Types: Pipe Smokeless tobacco: Never Used Comment: smokes a pipe- 1 pipe per day. Alcohol use: Yes Comment: 1 drink per month Drug use: No REVIEW OF SYSTEMS: General: No chills, fever, weight loss, night sweats. Respiratory: No productive cough. Cardiac: As noted above. GI: No melena. : No dysuria. Musculoskeletal: No myalgias. PHYSICAL EXAMINATION: S/he is alert and in no distress. VITAL SIGNS: BP 138/83 Pulse 79 Wt 255 lb (115.7kg) SHEENT: Skin is warm and dry. No xanthelasmas appreciated. Pharynx is benign. There is no oral cyanosis. Neck: supple. No adenopathy or thyroid enlargement. Chest: Clear to percussion and auscultation. Trachea is midline. Air entry is equal. There is no chest wall tenderness. Cardiac: Irregularly irregular rhythm. S1 and S2 are normal. PMI is nondisplaced. There is a soft systolic ejection murmur. No click is heard. Carotids are brisk without bruits. JVP is less than 10 cm. Abdomen: Soft and nontender. There are no pulsatile masses or bruits. No liver enlargement. Bowel sounds are active. Extremities: No edema. Pulses are intact and symmetrical. No clubbing or cyanosis. No femoral bruits. Neurologic: Grossly normal motor and sensory. S/he is alert and oriented x4. EKG demonstrates atrial fibrillation with controlled ventricular response. There is no evidence of ischemia. Recent labs were reviewed. Basic profile is noted for a creatinine of 1.3. Magnesium and TSH were normal. Recent echocardiogram shows normal left ventricular function. There is no significant valvular disease. Electronically Signed: Juan Chin MD January 07, 2018 2:52 PM CC:No primary care provider on file. Juan Chin MD 01/07/2018 2:53 PM Signed LIFESTYLE CHANGE A healthy lifestyle is the most important component of your overall treatment plan. Please give serious thought to the following areas and commit to making intermediate manager changes. EAT A WHOLE FOOD, PLANT BASED DIET The nutrition your body gets is more important than the medicine you take. What matters most is the overall way you eat. We encourage you to minimize the use of animal products (which include dairy and all meats except fatty fish) and use whole, unprocessed plant foods to provide your protein, vitamins and other nutrients. We have a lot of information to share with you on this topic. This is not a diet. It is a way of life that you will keep with you. EXERCISE REGULARLY It is not important to spend hours in the gym, lifting weights and perspiring heavily. A total of 2-3 hours per week of aerobic (causing you to be moderately short of breath) exercise is sufficient to improve your health. Talk to us before you begin a new exercise program, if you have heart disease or experience shortness of breath or chest pain. REDUCE STRESS Chronic emotional and physical stress leads to disease. Ways of reducing stress include meditation, visualization, prayer, yoga and other forms of relaxation therapy. Consistency is the phan. Find a technique that works for you and do it every day. CULTIVATE RELATIONSHIPS Loneliness and isolation have a major negative impact on health. Seek out others who can love, care for and nurture you. Avoid hurtful relationships. MAINTAIN IDEAL BODY WEIGHT The best way to do this is to do all the things above. Our bodies naturally find the right weight if we keep moving and feed ourselves the right food. If your BMI is greater than 25, we strongly recommend a referral to a weight management program. Please speak to us or your family physician about available programs. AVOID NICOTINE IN ALL FORMS This includes all tobacco products, whether chewed, smoked, vaped, or rubbed on the skin. Smoking cessation programs, which can make use of tobacco substitutes, medications to suppress cravings and behavior management, are available. Please contact your family physician about programs in your area. Philly Antunez LPN 01/07/2018 3:07 PM Signed Nahed at Dr Cha's office informed that patient was started on warfarin today and will need an INR done on Wednesday and DR chin is requesting that Dr Cha take over management.Philly Antunez LPN Referring Provider: JUAN CHIN [[id number]] Allergies As of Date: 01/07/2018 (No Known Allergies) Date Reviewed: 01/07/2018 Reviewed by: Rocael (Rn) Rosalind - Fully Assessed Reason for Visit: New Patient [172] Cmt: new onset a-fib - former [facility] patient Primary Visit Diagnosis:PAF (paroxysmal atrial fibrillation) (HCC) [I48.0] Other Visit Diagnoses:Essential hypertension [I10] Anemia due to chronic blood loss [D50.0] Order(s):CBC [SQCBC] Order #: [id number] FUTURE PROTHROMBIN TIME/PT [SQPT] Order #: [id number] FUTURE OCCULT BLD EXAM-DIAG [SQOB] Order #: [id number] FUTURE BASIC METABOLIC PNL [SQBMP] Order #: [id number] FUTURE warfarin (COUMADIN) 5 mg tabletTake 1 tablet by mouth once daily.Disp: 30 tabletRfl: 6 Prescriptions as of 01/07/2018 Sig: ASPIRIN 325 MG TABLET Take 325 mg by mouth once precious* METOPROLOL SUCCINATE ER 50 MG* Take 100 mg by mouth once precious* METFORMIN 500 MG TABLET TAKE 1 TABLET BY MOUTH TWICE * ALBUTEROL SULFATE HFA 90 MCG/* Inhale 2 Puffs as instructed * HYDROCHLOROTHIAZIDE 12.5 MG C* Take 1 capsule by mouth once * OXYBUTYNIN CHLORIDE ER 10 MG * Take 2 tablets by mouth once * ALLOPURINOL 300 MG TABLET Take 1 tablet by mouth once d* AMLODIPINE 5 MG TABLET Take 1 tablet by mouth once d* WARFARIN 5 MG TABLET Take 1 tablet by mouth once d* ASPIRIN 81 MG TABLET,DELAYED * Take 1 tablet by mouth once d* Patient not taking: Reported on 01/07/2018 Problem List As Of Date 01/07/2018 Noted Resolved Essential hypertension [I10] INVALID FOR* BENIGN HYPERTENSION [I10] 01/28/2006 DYSMETABOLIC SYNDROME X [E88.81] INVALID FOR*09/06/2007 Other malignant neoplasm of other specified sit*INVALID FOR*05/07/2011 Calculus of kidney [N20.0] INVALID FOR*05/07/2011 HEMATURIA [599.7] INVALID FOR*09/08/2006 PAIN ABDOMEN( Left Lower Quadrant) [R10.32] INVALID FOR*09/08/2006 Other specified disorders of pelvic joint [M25.*INVALID FOR*05/07/2011 Special Screening for Malignant Neoplasms, Seffner*INVALID FOR*10/11/2009 POLYP COLON [D12.6] INVALID FOR*10/11/2009 NEURALGIA/NEURITIS NOS [XSJ3800] INVALID FOR* OBESITY NOS [E66.9] INVALID FOR* UMBILICAL HERNIA W/O GANGRENE/OBSTRUCTION [K42.*INVALID FOR*12/25/2010 PERSONAL HISTORY OF COLONIC POLYPS [Z86.010] INVALID FOR*05/07/2011 BPH (benign prostatic hypertrophy) with urinary*INVALID FOR* 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*10/11/2009 COPD (Chronic Obstructive Pulmonary Disease) [J*INVALID FOR* Smoker [F17.200] INVALID FOR* Cough due to angiotensin-converting enzyme inhi*INVALID FOR*03/29/2015 Metabolic syndrome [E88.81] INVALID FOR* Ganglion cyst [M67.40] INVALID FOR*03/29/2015 LBP (low back pain) [M54.5] INVALID FOR* Spinal stenosis [M48.00] INVALID FOR* Personal history of colonic polyps [Z86.010] INVALID FOR* Hematoma [T14.8XXA] INVALID FOR*03/29/2015 Gout [M10.9] INVALID FOR* Nocturia [R35.1] INVALID FOR* Frequency of micturition [R35.0] INVALID FOR*04/13/2016 Urgency of urination [R39.15] INVALID FOR* Type 2 diabetes mellitus with complication, wit*INVALID FOR* Chronic bronchitis (HCC) [J42] INVALID FOR* Other instructions from your clinician: LIFESTYLE CHANGE A healthy lifestyle is the most important component of your overall treatment plan. Please give serious thought to the following areas and commit to making intermediate manager changes. EAT A WHOLE FOOD, PLANT BASED DIET The nutrition your body gets is more important than the medicine you take. What matters most is the overall way you eat. We encourage you to minimize the use of animal products (which include dairy and all meats except fatty fish) and use whole, unprocessed plant foods to provide your protein, vitamins and other nutrients. We have a lot of information to share with you on this topic. This is not a diet. It is a way of life that you will keep with you. EXERCISE REGULARLY It is not important to spend hours in the gym, lifting weights and perspiring heavily. A total of 2-3 hours per week of aerobic (causing you to be moderately short of breath) exercise is sufficient to improve your health. Talk to us before you begin a new exercise program, if you have heart disease or experience shortness of breath or chest pain. REDUCE STRESS Chronic emotional and physical stress leads to disease. Ways of reducing stress include meditation, visualization, prayer, yoga and other forms of relaxation therapy. Consistency is the phan. Find a technique that works for you and do it every day. CULTIVATE RELATIONSHIPS Loneliness and isolation have a major negative impact on health. Seek out others who can love, care for and nurture you. Avoid hurtful relationships. MAINTAIN IDEAL BODY WEIGHT The best way to do this is to do all the things above. Our bodies naturally find the right weight if we keep moving and feed ourselves the right food. If your BMI is greater than 25, we strongly recommend a referral to a weight management program. Please speak to us or your family physician about available programs. AVOID NICOTINE IN ALL FORMS This includes all tobacco products, whether chewed, smoked, vaped, or rubbed on the skin. Smoking cessation programs, which can make use of tobacco substitutes, medications to suppress cravings and behavior management, are available. Please contact your family physician about programs in your area. Visit Notes: >> Philly Antunez WedJanuary 07, 2018 3:04 PM Status: Signed Nahed at Dr Cha's office informed that patient was started on warfarin today and will need an INR done on Wednesday and DR chin is requesting that Dr Cha take over management.Philly Antunez LPN Prescriptions ordered this encounter Disp Refills Start End WARFARIN 5 MG TABLET 30 t* 6 01/07/2018 Route: ORAL Sig: Take 1 tablet by mouth once daily. Medications Discontinued During This Encounter atenolol (TENORMIN) 100 mg tablet 90 t* 3 10/13/2016 01/07/2018 Route: ORAL Sig: Take 1 tablet by mouth once daily. Patient not taking: Reported on 01/07/2018 Disc: Reason for discontinue is not on file. Follow-up and Disposition History Recorded Encounter Status:Closed by JUAN CHIN MD on 01/07/18 ECHOCARDIOGRAM COMPLETE Observed: 12/24/2017 Status: F Source: [place] 2:39 PM [facility] REPOSITORY [facility] Cardiovascular Services [address] [place] [address] Echo Complete 12/24/17 1303 MR#: [id number] Acct: [id number] Name: PANDA FLOYD Rep #: [id number] : 1940 77 From: Jp Sanabria MD Attending Dr: Man Cha Status: REG CLI Ordering Dr: Man Cha MD Date: 12/24/17 Location: [facility] Sex: M C Admitted: Reason For Study: NEW ONSET AFIB Procedure This was a 2D Doppler, Color Flow transthoracic echocardiogram. The exam was of poor technical quality due to body habitus. The study was technically difficult. Exam performed in department. Left Ventricle Normal LV size. Moderate concentric left ventricular hypertrophy. Left ventricular systolic function is normal. The estimated ejection fraction is 60 %. Unable to assess diastolic dysfunction due to arrhythmia. No regional wall motion abnormalities noted. Right Ventricle Normal RV size. Normal systolic function. Atria The left atrium is mildly enlarged. The right atrium is moderately enlarged. No doppler evidence for ASD. Mitral Valve There is no mitral annular calcification. Normal mitral valve. Trivial mitral valve insufficiency. Tricuspid Valve Normal tricuspid valve. Mild tricuspid valve insufficiency. Right ventricular systolic pressure estimated to be 37 mmHg. Aortic Valve Trisinus/trileaflet aortic valve. Mild focal aortic valve thickening. Pulmonic Valve The pulmonic valve is not well visualized. Trivial pulmonic valve insufficiency. Great Vessels Normal sized aortic root. Pericardium/Pleural No pericardial effusion. MMode/2D Measurements AND Calculations LVIDd: 4.0 cm IVSd: 1.8 cm Ao root diam: 3.3 cm LVIDs: 2.9 cm LVPWd: 1.6 cm RVDd: 4.3 cm FS: 27.6 % LAV(MOD-bp): 77.1 ml EDV(MOD-sp4): 89.4 ml SV(MOD-sp4): 47.0 ml LAV(MOD-bp) Indexed: 33.7 ml/m2 ESV(MOD-sp4): 42.4 ml LAV(MOD-sp2): 88.0 ml EF(MOD-sp4): 52.5 % LAV(MOD-sp4): 64.6 ml LA A4 area: 22.7 cm2 RA A4 area: 21.5 cm2 Doppler Measurements AND Calculations MV E max mary: 78.0 cm/sec Ao V2 max: 95.6 cm/sec LV V1 max: 86.7 cm/sec Ao max P.7 mmHg LV V1 max P.0 mmHg PA V2 max: 99.9 cm/sec TR max mary: 270.6 cm/sec TR max P.3 mmHg Interpretation Summary The study was technically difficult. Left ventricular systolic function is normal. The estimated ejection fraction is 60 %. Moderate concentric left ventricular hypertrophy. The left atrium is mildly enlarged. The right atrium is moderately enlarged. Trivial mitral valve insufficiency. Mild tricuspid valve insufficiency. Mild focal aortic valve thickening. Trivial pulmonic valve insufficiency. Right ventricular systolic pressure estimated to be 37 mmHg. Unable to assess diastolic dysfunction due to arrhythmia. Ordering Physician: Man Cha Referring Physician: Man Cha Performed By: Clemencia Matos RDCS 12/24/17 1439 Date Jp Sanabria MD CC: Man Cha Date Dictated: 12/24/17 1303 Date Transcribed: 12/24/17 1439 Business Support Administrator: Signed COMPREHENSIVE METABOLIC Collected: 11/30/2017 Status: F Source: [place] 1:49 PM [facility] REPOSITORY TYPE CODE TESTS RESULT OUT OF RANGE REFERENCE UNITS LAB L501.0100 74-106 mg/dL Normal GLU 102 Result Comment: Fasting Glucose result from 100 to 125 mg/dL suggests IMPAIRED HOMEOSTASIS per A.D.A. criteria. Please note revised GLUCOSE reference range effective 2017. LAB L501.1000 7-18 mg/dL High BUN 21 LAB L501.1100 0.70-1.30 mg/dL High CREAT,SERUM 1.32 Result Comment: The validity of the calculated GFR AND GFRAA in patients over 70 years has not been determined. Clinical correlation is essential. LAB L501.1110 >60 mL/min Low EST GFR 56 Result Comment: Non- GFR Calc LAB L501.1115 >60 mL/min Normal EST GFR - AA 67 Result Comment: GFR Calc LAB L501.1300 10-20 RATIO Normal BUN/CRE 15.9 LAB L501.1500 6.4-8.2 g/dL T Normal PROT 7.2 LAB L501.1800 3.2-5.0 g/dL Normal ALB 3.6 LAB L501.1950 2.2-4.2 g/dL Normal GLOB 3.6 LAB L501.2000 0.9-2.4 RATIO Normal A/G 1.0 LAB L501.2200 8.5-10.1 mg/dL CA Normal 8.7 LAB L501.4100 15-37 U/L High AST 50 LAB L501.4305 45-117 U/L Normal ALK P 110 LAB L501.4405 16-61 U/L Normal ALT 46 Result Comment: Please note revised ALT reference range effective 2017. LAB L501.4600 0.20-1.00 mg/dL High T BILI 1.30 LAB L501.5300 136-145 mmol/L Normal NA 141 LAB L501.5600 3.5-5.1 mmol/L Normal K 3.5 LAB L501.5900 98-107 mmol/L Normal CL 104 LAB L501.6100 21.0-32.0 mmol/L Normal CO2 28.0 LAB L501.6200 5-15 Normal GAP 9 Performed By: #### L500.4050, L501.5200, L501.9520, L506.0400 #### [facility] [address] [place], [place], [address] MAGNESIUM Collected: 11/30/2017 Status: F Source: [place] 1:49 PM [facility] REPOSITORY TYPE CODE TESTS RESULT OUT OF RANGE REFERENCE UNITS LAB L501.5200 1.6-2.6 mg/dL Normal MG 1.9 Result Comment: Please note revised Magnesium reference range effective 2017. Performed By: #### L500.4050, L501.5200, L501.9520, L506.0400 #### [facility] [address] [place], [address] THYROID STIM HORMONE Collected: 11/30/2017 Status: F Source: [place] (TSH) 1:49 PM [facility] REPOSITORY TYPE CODE TESTS RESULT OUT OF RANGE REFERENCE UNITS LAB L501.9520 0.358-3.74 uIU/mL Normal TSH 3.48 Performed By: #### L500.4050, L501.5200, L501.9520, L506.0400 #### [facility] [address] [place], [address] T4 FREE DIRECT Collected: 11/30/2017 Status: F Source: [place] 1:49 PM [facility] REPOSITORY TYPE CODE TESTS RESULT OUT OF RANGE REFERENCE UNITS LAB L506.0400 0.76-1.46 ng/dL Normal T4 FREE 1.08 DIRECT Performed By: #### L500.4050, L501.5200, L501.9520, L506.0400 #### [facility] [address] 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 Cheney as PCP. Ivory Love MA PROGRESS Observed: 11/23/2017 Status: COMPLETED Source: [place] 12:06 PM [facility] REPOSITORY HNO ID: [id number] Author: Giancarlo Hayden Service: (none) Author Type: Nurse Practitioner Type: Progress Notes Filed: 11/29/2017 9:09 AM Note Text: Labs filed. Giancarlo Hayden APRN.CNP PROGRESS Observed: 11/23/2017 Status: COMPLETED Source: [place] 10:28 AM [facility] REPOSITORY HNO ID: [id number] Author: Ivory Love Service: (none) Author Type: Container Filler Type: Progress Notes Filed: 11/29/2017 9:09 AM Note Text: PHMA TEAMLET DOCUMENTATION Provider Action/FYI: Patient needs appointment, needs labs ordered, needs Foot and Eye exam. IFOBT CMP lipids PSR Action/FYI: Teamlet has identified patient by name and date of . Team: Samantha Ferraro MA, Ave Sanon MA, Ivory Love MA, VANESSA Barragan, Dr. Nathan Cheney, Kendra Parkinson PSR, ? Last Office Visit:Visit date not found ? Next Office Visit: Visit date not found ? Last BP/Labs: Blood Pressure: Last 3 Encounter BP Readings: Date: BP: 12/22/2016 150/90 12/07/2016 158/88 10/13/2016 136/88[rechecked after office visit[ Lipids: Cholesterol, Total (mg/dL) Date Value 10/09/2016 170 04/09/2016 171 HDL Cholesterol (mg/dL) Date Value 10/09/2016 45 04/09/2016 46 LDL Cholesterol (mg/dL) Date Value 10/09/2016 102 04/09/2016 105 Triglyceride (mg/dL) Date Value 10/09/2016 113 04/09/2016 101 HGB A1C: Lab Results Component Value Date HBA1C 6.8 10/09/2016 HBA1C 6.9 04/09/2016 HBA1C 7.0 10/08/2015 TSH: No results found for: TSH) Care Gap: DM - Need Urine Albumin / NOT checked in last 12 months Needs dilated eye exam - HM overdue Plan: ? Confirm PCP / Status ? Type of appointment needed: Follow-up Consultation Appointments Labs, HM and Immunization: Labs: Albumin Creatinine Urine CMP HGB A1C Fecal Occult Blood Test Lipids Colon Cancer Screening Diabetic Eye Exam Diabetic Foot Exam Ivory Love MA CNPTOUTREACH Observed: 11/23/2017 Status: COMPLETED Source: [place] 12:00 AM [facility] REPOSITORY Patient Outreach (FAMPWS) PANDA FLOYD ([id number]) 1940 M Date Time Provider Department 11/23/17 IVORY LOVE) MESHAPWS During your visit today, we recorded the following information about you: Ivory Love MA 11/29/2017 9:09 AM Signed PHMA TEAMLET DOCUMENTATION Provider Action/FYI: Patient needs appointment, needs labs ordered, needs Foot and Eye exam. IFOBT CMP lipids PSR Action/FYI: Teamlet has identified patient by name and date of . Team: Samantha Ferraro MA, Ave Sanon MA, Ivory Love MA, VANESSA Barragan, Dr. Nathan Cheney, Kendra Parkinson PSR, ? Last Office Visit:Visit date not found ? Next Office Visit: Visit date not found ? Last BP/Labs: Blood Pressure: Last 3 Encounter BP Readings: Date: BP: 12/22/2016 150/90 12/07/2016 158/88 10/13/2016 136/88[rechecked after office visit[ Lipids: Cholesterol, Total (mg/dL) Date Value 10/09/2016 170 04/09/2016 171 HDL Cholesterol (mg/dL) Date Value 10/09/2016 45 04/09/2016 46 LDL Cholesterol (mg/dL) Date Value 10/09/2016 102 04/09/2016 105 Triglyceride (mg/dL) Date Value 10/09/2016 113 04/09/2016 101 HGB A1C: Lab Results Component Value Date HBA1C 6.8 10/09/2016 HBA1C 6.9 04/09/2016 HBA1C 7.0 10/08/2015 TSH: No results found for: TSH) Care Gap: DM - Need Urine Albumin / NOT checked in last 12 months Needs dilated eye exam - HM overdue Plan: ? Confirm PCP / Status ? Type of appointment needed: Follow-up Consultation Appointments Labs, HM and Immunization: Labs: Albumin Creatinine Urine CMP HGB A1C Fecal Occult Blood Test Lipids Colon Cancer Screening Diabetic Eye Exam Diabetic Foot Exam DHARA Luciano APRN.REJI 11/29/2017 9:09 AM Signed Labs filed. 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 Ivory Love MA Allergies As of Date: 11/23/2017 (No Known Allergies) Date Reviewed: 12/22/2016 Reviewed by: Bianca White - Fully Assessed Reason for Visit: PHMA/Care Gap Outreach [3605] Primary Visit Diagnosis:Type 2 diabetes mellitus with complication, without long-term current use of insulin (HCC) [E11.8] Other Visit Diagnoses:Essential hypertension [I10] Screening for hyperlipidemia [Z13.220] Encounter for screening fecal occult blood testing [Z12.11] Order(s):COMP METABOLIC PANEL [SQCMP] Order #: [id number] FUTURE LIPID PANEL BASIC [SQLIPB] Order #: [id number] FUTURE HGB A1C [AWHMM1I] Order #: [id number] FUTURE FECAL OCCULT BLOOD TEST [SQIFOBT] Order #: [id number] FUTURE ALBUMIN RANDOM URINE [SQUALBR] Order #: [id number] FUTURE Prescriptions as of 11/23/2017 Sig: METFORMIN 500 MG TABLET TAKE 1 TABLET BY MOUTH TWICE * ALBUTEROL SULFATE HFA 90 MCG/* Inhale 2 Puffs as instructed * HYDROCHLOROTHIAZIDE 12.5 MG C* Take 1 capsule by mouth once * OXYBUTYNIN CHLORIDE ER 10 MG * Take 2 tablets by mouth once * ATENOLOL 100 MG TABLET Take 1 tablet by mouth once d* ALLOPURINOL 300 MG TABLET Take 1 tablet by mouth once d* AMLODIPINE 5 MG TABLET Take 1 tablet by mouth once d* ASPIRIN 81 MG TABLET,DELAYED * Take 1 tablet by mouth once d* Problem List As Of Date 11/23/2017 Noted Resolved Essential hypertension [I10] INVALID FOR* BENIGN HYPERTENSION [I10] 01/28/2006 DYSMETABOLIC SYNDROME X [E88.81] INVALID FOR*09/06/2007 Other malignant neoplasm of other specified sit*INVALID FOR*05/07/2011 Calculus of kidney [N20.0] INVALID FOR*05/07/2011 HEMATURIA [599.7] INVALID FOR*09/08/2006 PAIN ABDOMEN( Left Lower Quadrant) [R10.32] INVALID FOR*09/08/2006 Other specified disorders of pelvic joint [M25.*INVALID FOR*05/07/2011 Special Screening for Malignant Neoplasms, Seffner*INVALID FOR*10/11/2009 POLYP COLON [D12.6] INVALID FOR*10/11/2009 NEURALGIA/NEURITIS NOS [WNC5931] INVALID FOR* OBESITY NOS [E66.9] INVALID FOR* UMBILICAL HERNIA W/O GANGRENE/OBSTRUCTION [K42.*INVALID FOR*12/25/2010 PERSONAL HISTORY OF COLONIC POLYPS [Z86.010] INVALID FOR*05/07/2011 BPH (benign prostatic hypertrophy) with urinary*INVALID FOR* 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*10/11/2009 COPD (Chronic Obstructive Pulmonary Disease) [J*INVALID FOR* Smoker [F17.200] INVALID FOR* Cough due to angiotensin-converting enzyme inhi*INVALID FOR*03/29/2015 Metabolic syndrome [E88.81] INVALID FOR* Ganglion cyst [M67.40] INVALID FOR*03/29/2015 LBP (low back pain) [M54.5] INVALID FOR* Spinal stenosis [M48.00] INVALID FOR* Personal history of colonic polyps [Z86.010] INVALID FOR* Hematoma [T14.8XXA] INVALID FOR*03/29/2015 Gout [M10.9] INVALID FOR* Nocturia [R35.1] INVALID FOR* Frequency of micturition [R35.0] INVALID FOR*04/13/2016 Urgency of urination [R39.15] INVALID FOR* Type 2 diabetes mellitus with complication, wit*INVALID FOR* Chronic bronchitis (HCC) [J42] INVALID FOR* Encounter Status:Closed by IVORY LOVE on 11/29/17 BNP,B-TYPE NATRIURETIC Collected: 09/21/2017 Status: F Source: [place] 2:56 PM [facility] REPOSITORY TYPE CODE TESTS RESULT OUT OF RANGE REFERENCE UNITS LAB L503.6620 0-100 pg/mL High B-TYPE 116.3 PILAR PEP Performed By: #### L503.6620 #### [facility] [address] [place], [address] BASIC METABOLIC Collected: 09/21/2017 Status: F Source: [place] (BMP) 2:56 PM [facility] REPOSITORY TYPE CODE TESTS RESULT OUT OF RANGE REFERENCE UNITS LAB L501.0100 70-110 mg/dL High GLU 116 Result Comment: Fasting Glucose result from 110 to <126 mg/dL suggests IMPAIRED HOMEOSTASIS per A.D.A. criteria. LAB L501.1000 7-18 mg/dL High BUN 20 LAB L501.1100 0.70-1.30 mg/dL Normal CREAT,SERUM 1.26 Result Comment: The validity of the calculated GFR AND GFRAA in patients over 70 years has not been determined. Clinical correlation is essential. LAB L501.1110 >60 mL/min Low EST GFR 59 Result Comment: Non- GFR Calc LAB L501.1115 >60 mL/min Normal EST GFR - AA 71 Result Comment: GFR Calc LAB L501.1300 10-20 RATIO Normal BUN/CRE 15.9 LAB L501.2200 8.5-10.1 mg/dL CA Normal 8.7 LAB L501.5300 136-145 mmol/L NA Normal 136 LAB L501.5600 3.5-5.1 mmol/L K Normal 3.8 LAB L501.5900 98-107 mmol/L CL Normal 101 LAB L501.6100 21.0-32.0 mmol/L Normal CO2 27.0 LAB L501.6200 5-15 Normal GAP 8 Performed By: #### L500.2500, L501.9520 #### [facility] [address] [place], [place], [id number] THYROID STIM HORMONE Collected: 09/21/2017 Status: F Source: [place] (TSH) 2:56 PM [facility] REPOSITORY TYPE CODE TESTS RESULT OUT OF RANGE REFERENCE UNITS LAB L501.9520 0.358-3.74 uIU/mL Normal TSH 2.13 Performed By: #### L500.2500, L501.9520 #### [facility] [address] [place], [place], [id number] ALLERGIES ALLERGIES DATE TYPE / CODE NAME / CODE REACTION SEVERITY SOURCE 09/10/2018 Drug No Known Unknown [facility] Allergy/416 Allergies/[id number] [facility] [id number](SNOM 0388(RXNORM) Repository ED CT) Drug NO KNOWN [facility] Class/60351 ALLERGIES [facility] [place] 1003(SNOMED Repository CT) NG/[id number] NO KNOWN [facility] 6(SNOMED ALLERGIES [facility]) Repository ENCOUNTERS ENCOUNTERS ADMIT/DISCHARGE ACCOUNT NUMBER ADMITTING ENCOUNTER LOCATION SOURCE CLASS 09/13/2018 [id number] Ambulatory [facility] ding:CT Repository 09/10/2018/09/10/19 [id number] Emergency [address] ding:ED Repository 08/08/2018 [id number] Ambulatory BMSBuilding: [facility] Repository 08/06/2018/08/09/20 [id number] Nima Gamez Chi Inpatient [address] ding:TCURoom Repository : MAS05Nqf: 1 08/03/2018 [id number] Kaushik, Ambulatory BMSBuilding: [place] BMS.[facility] Repository 08/03/2018 [id number] Kaushik, Ambulatory BMSBuilding: [place] BMS.[facility] Repository 08/03/2018 [id number] Kaushik, Ambulatory BMSBuilding: [place] BMS.[facility] Repository 08/03/2018 [id number] Kaushik, Ambulatory BMSBuilding: [place] BMS.[facility] Repository 08/03/2018/08/06/20 [id number] Kaushik, Inpatient [address] ding:VF9Towe Repository : AW010Mud: 1 07/27/2018 [id number] Ambulatory [facility] ding:LAB.FUT Repository URE 07/22/2018 [id number] Ambulatory BMSBuilding: [facility] Repository 07/12/2018/07/13/20 [id number] Ambulatory [address] Repository 06/21/2018 [id number] Ambulatory [facility] ding:CT Repository 05/12/2018/05/13/20 [id number] Ambulatory [address] Repository 03/31/2018/03/31/20 [id number] Ambulatory [address] Repository 03/22/2018 [id number] Ambulatory [facility] ding:CLSP Repository 03/22/2018 [id number] Ambulatory BMSBuilding: [place] BMS.CF.[facility] Repository 03/22/2018 [id number] Ambulatory BMSBuilding: [place] BMS.[facility] Repository 03/22/2018 [id number] Ambulatory BMSBuilding: [facility] Repository 03/16/2018/03/17/20 [id number] Ambulatory [address] [place] Repository 03/16/2018/03/16/20 [id number] Ambulatory [address] [place] Repository 03/16/2018/03/16/20 [id number] Ambulatory [address] [place] Repository 02/10/2018/02/11/20 [id number] Ambulatory [address] [place] Repository 02/10/2018 [id number] Ambulatory [facility] MEDICAL Repository CENTERBuildi ng:CAGWS 01/18/2018/01/19/20 [id number] Ambulatory [address] [place] Repository 01/07/2018/01/08/20 [id number] Ambulatory [address] Repository 01/07/2018/01/08/20 [id number] Ambulatory [address] [place] Repository 01/07/2018/01/08/20 [id number] Ambulatory [address] MEDICAL Repository CENTERBuildi ng:CAGWS 12/24/2017 [id number] Ambulatory [facility] ding:[facility] Repository 12/24/2017 [id number] Ambulatory BMSBuilding: [facility] Repository 11/30/2017 [id number] Ambulatory [facility] ding:BFAB Repository 10/07/2017 [id number] Ambulatory [facility] ding:[facility] Repository 10/07/2017 [id number] Ambulatory BMSBuilding: [facility] Repository 09/21/2017 [id number] Ambulatory [facility] ding:BFHLAB Repository PAYERS PAYERS ENCOUNTER GUARANTOR PAYER SUBSCRIBER SOURCE 09/13/2018 PANDA Richard Primary PANDA [id number] Insurance:MEDICARE ELAINEB: [facility] PART A BPolicy Number: [id number] [id number] Repository 90343Vdg: (330) Date:2018-09-13 [phone] () 09/13/2018 Secondary PANDA R [place] Insurance:HUMANA KEENERDOB: Community COMMERCIALPolicy [id number] Hospital Number: Repository [id number] Date:1029-93-29II [address] [place] [address]IT: 09/13/2018 Tertiary NOT GIVENUNK [place] Insurance:SELF PAY [facility] Number: Effective Repository Date:2018-09-13 09/10/2018 PANDA R Primary PANDA R [place] [id number] Insurance:MEDICARE KEENERDOB: Community [place] PART A BPolicy Number: [id number], [place] [id number] Repository 97558Vkc: 330) Date:2018-09-10 [phone] () 09/10/2018 Secondary PANDA R [place] Insurance:HUMANA KEENERDOB: [facility], [facility] [id number] Hospital Number: Repository [id number] Date:5790-10-76DA [address] [place] [address]CM: 09/10/2018 Tertiary NOT GIVENUNK [place] Insurance:SELF PAY [facility], [facility] Number: Effective Repository Date:2018-09-10 08/08/2018 PANDA R Primary PANDA R [place] [id number] Insurance:MEDICARE KEENERDOB: Community [place] PART A BPolicy Number: [id number], [place] [id number] Repository 21448Dsk: (330) Date:2018-08-06 [phone] () 08/08/2018 Secondary PANDA R [place] Insurance:HUMANA KEENERDOB: Community [facility] [id number] Hospital Number: Repository [id number] Date:6729-78-02IV [address] [place] [address]AI: 08/08/2018 Tertiary NOT GIVENUNK [place] Insurance:SELF PAY [facility], [facility] Number: Effective Repository Date:2018-08-08 08/06/2018 PANDA R Primary PANDA R [place] [id number] Insurance:MEDICARE KEENERDOB: Community [place] PART A BPolicy Number: [id number], [place] [id number] Repository 57[address]Pip: 330) Date:2018-08-06 [phone] () 08/06/2018 Secondary PANDA R [place] Insurance:HUMANA KEENERDOB: [facility], [facility] [id number] Hospital Number: Repository [id number] Date:0048-58-64GH[address] [address]VD: 08/06/2018 Tertiary NOT GIVENUNK [place] Insurance:SELF PAY [facility], [facility] Number: Effective Repository Date:2018-08-06 08/03/2018 PANDA R Primary PANDA R [place] [id number] Insurance:MEDICARE KEENERDOB: Community [place] PART A BPolicy Number: [id number], [place] [id number] Repository 81742Pms: 330) Date:2018-06-21 [phone] () 08/03/2018 Secondary PANDA R [place] Insurance:HUMANA KEENERDOB: [facility], [facility] [id number] Hospital Number: Repository [id number] Date:5772-45-14PB [address] [address]KR: 08/03/2018 Tertiary NOT GIVENUNK [place] Insurance:SELF PAY [facility], [facility] Number: Effective Repository Date:2018-08-03 08/03/2018 PANDA R Primary PANDA R [place] [id number] Insurance:MEDICARE KEENERDOB: Community [place] PART A BPolicy Number: [id number], [place] [id number] Repository 71696Vvv: 165) Date:2018-06-21 [phone] () 08/03/2018 Secondary PANDA R [place] Insurance:HUMANA KEENERDOB: [facility], [facility] [id number] Hospital Number: Repository [id number] Date:0900-97-54JA [address] [place] [address]EN: 08/03/2018 Tertiary NOT GIVENUNK [place] Insurance:SELF PAY [facility] Hospital Number: Effective Repository Date:2018-08-03 08/03/2018 PANDA R Primary PANDA R [place] [id number] Insurance:MEDICARE KEENERDOB: Community [place] PART A BPolicy Number: [id number], [place] [id number] Repository 060[address]Cyy: 330) Date:2018-06-21 [phone] () 08/03/2018 Secondary PANDA R [place] Insurance:HUMANA KEENERDOB: [facility] [id number] Hospital Number: Repository [id number] Date:3245-81-92PH [address] [place] [address]QB: 08/03/2018 Tertiary NOT GIVENUNK [place] Insurance:SELF PAY [facility] Number: Effective Repository Date:2018-08-03 08/03/2018 PANDA R Primary PANDA R [place] [id number] Insurance:MEDICARE KEENERDOB: Community [place] PART A BPolicy Number: [id number], [place] [id number] Repository 54[address]Wrf: 330) Date:2018-06-21 [phone] () 08/03/2018 Secondary PANDA R [place] Insurance:HUMANA KEENERDOB: [facility] [id number] Hospital Number: Repository [id number] Date:0442-25-10KV [address] [place] [address]YC: 08/03/2018 Tertiary NOT GIVENUNK [place] Insurance:SELF PAY [facility] Hospital Number: Effective Repository Date:2018-08-03 08/03/2018 PANDA R Primary PANDA R [place] [id number] Insurance:MEDICARE KEENERDOB: Community [place] PART A BPolicy Number: [id number], [place] [id number] Repository 64[address]Kpp: (330) Date:2018-06-21 [phone] () 08/03/2018 Secondary PANDA R [place] Insurance:HUMANA KEENERDOB: [facility], [facility]CIAL[facility] Hospital[facility] [id number] Hospital Number: Repository [id number] Date:5863-73-86IM [address] [place] [address]WW: 08/03/2018 Tertiary NOT GIVENUNK [place] Insurance:SELF PAY [facility], [facility] Number: Effective Repository Date:2018-06-21 07/27/2018 PANDA R Primary PANDA R [place] [id number] Insurance:MEDICARE KEENERDOB: Community [place] PART A BPolicy Number: [id number], [place] [id number] Repository 97833Wzn: 330) Date:2018-07-27 [phone] () 07/27/2018 Secondary PANDA R [place] Insurance:HUMANA KEENERDOB: [facility] [id number] Hospital Number: Repository [id number] Date:6031-07-57LI [address] [address]MY: 07/27/2018 Tertiary NOT GIVENUNK [place] Insurance:SELF PAY [facility] Hospital Number: Effective Repository Date:2018-07-27 07/22/2018 PANDA R Primary PANDA R [place] [id number] Insurance:MEDICARE KEENERDOB: Community [place] PART A BPolicy Number: [id number], [place] [id number] Repository 09784Hds: (330) Date:2018-07-22 [phone] () 07/22/2018 Secondary PANDA R [place] Insurance:HUMANA KEENERDOB: [facility] [id number] Hospital Number: Repository [id number] Date:6970-82-40XF [address] [place] [address]LL: 07/22/2018 Tertiary NOT GIVENUNK [place] Insurance:SELF PAY [facility], [facility] Number: Effective Repository Date:2018-07-22 06/21/2018 PANDA R Primary PANDA R [place] [id number] Insurance:MEDICARE KEENERDOB: Community [place] PART A BPolicy Number: [id number], [place] [id number] Repository 26700Atw: (146) Date:2018-06-16 [phone] () 06/21/2018 Secondary PANDA R [place] Insurance:HUMANA KEENERDOB: [facility], [facility] [id number] Hospital Number: Repository [id number] Date:9049-81-51N[address] [address]GK: 06/21/2018 Tertiary NOT GIVENUNK [place] Insurance:SELF PAY [facility], [facility] Number: Effective Repository Date:2018-06-16 03/22/2018 PANDA R Primary PANDA R [place] [id number] Insurance:MEDICARE KEENERDOB: Community [place] PART A BPolicy Number: [id number], [place] [id number] Repository 83378Rmq: (704) Date:2018-03-18 [phone] () 03/22/2018 Secondary PANDA R [place] Insurance:HUMANA KEENERDOB: [facility], 1928–[facility] [id number] Hospital Number: Repository [id number] Date:1356-28-20JI [address] [place] [address]PZ: 03/22/2018 Tertiary NOT GIVENUNK [place] Insurance:SELF PAY [facility], [facility] Number: Effective Repository Date:2018-03-18 03/22/2018 PANDA R Primary PANDA R [place] [id number] Insurance:MEDICARE KEENERDOB: Community [place] PART A BPolicy Number: [id number], [place] [id number] Repository 77415Jvy: (330) Date:2018-03-18 [phone] () 03/22/2018 Secondary PANDA R [place] Insurance:HUMANA KEENERDOB: Community [facility] [id number] Hospital Number: Repository [id number] Date:3389-23-45SY [address] [place] [address]XX: 03/22/2018 Tertiary NOT GIVENUNK [place] Insurance:SELF PAY [facility] Number: Effective Repository Date:2018-03-22 03/22/2018 PANDA R Primary PANDA R [place] [id number] Insurance:MEDICARE KEENERDOB: Community [place] PART A BPolicy Number: [id number], [place] [id number] Repository 97181Siy: (330) Date:2018-03-18 [phone] () 03/22/2018 Secondary PANDA R [place] Insurance:HUMANA KEENERDOB: [facility], [facility]–1983 [facility] [id number] Hospital Number: Repository [id number] Date:2621-81-27ZW [address] [place] [address]WB: 03/22/2018 Tertiary NOT GIVENUNK [place] Insurance:SELF PAY [facility] Hospital Number: Effective Repository Date:2018-03-22 03/22/2018 PANDA R Primary PANDA R [place] [id number] Insurance:MEDICARE KEENERDOB: Community [place] PART A BPolicy Number: [id number], [place] [id number] Repository 02993Xwb: 330) Date:2018-03-18 [phone] () 03/22/2018 Secondary PANDA R [place] Insurance:HUMANA KEENERDOB: [facility], [facility] [id number] Hospital Number: Repository [id number] Date:0257-74-93UB [address] [place] [address]WI: 03/22/2018 Tertiary NOT GIVENUNK [place] Insurance:SELF PAY Community [facility] Number: Effective Repository Date:2018-03-22 02/10/2018 PANDA R Primary PANDA R [facility] KEENERDOB: Insurance:MEDICARE A KEENERDOB: Health System AND BPolicy Number: [id number] Repository [facility] [id number] [place], [place] Date: [address]Hfi: () 02/10/2018 Secondary PANDA R [facility] Insurance:HUMANA KEENERDOB: Health System MEDICARE [id number] Repository SUPPLEMENTPolicy Number: [id number] Date: 01/07/2018 PANDA R Primary PANDA R [facility] KEENERDOB: Insurance:MEDICARE A KEENERDOB: Health System AND BPolicy Number: [id number] Repository [facility] [id number] [place], [place] Date: [address]Tcs: () 01/07/2018 Secondary PANDA R [facility] Insurance:HUMANA KEENERDOB: Health System MEDICARE [id number] Repository SUPPLEMENTPolicy Number: [id number] Date: 12/24/2017 Panda R Primary Panda R [place] [id number] Insurance:MEDICARE KeenerDOB: [facility] PART A BPolicy Number: [id number] [place] [id number] Repository 552[address]Fyh: 330) Date:2017-12-02 [phone] () 12/24/2017 Secondary Panda R [place] Insurance:HUMANA KeenerDOB: [facility], [facility]–1983 [facility] [id number] Hospital Number: Repository [id number] Date:8079-84-17AH[address] [address]NH: 12/24/2017 Tertiary NOT GIVENUNK [place] Insurance:SELF PAY [facility], [facility] Number: Effective Repository Date:2017-12-02 12/24/2017 Panda R Primary Panda R [place] [id number] Insurance:MEDICARE KeenerDOB: Community [place] PART A BPolicy Number: [id number], [place] [id number] Repository 63787Mym: 330) Date:2017-12-02 [phone] () 12/24/2017 Secondary Panda R [place] Insurance:HUMANA KeenerDOB: [facility], [facility]–1983 [facility] [id number] Hospital Number: Repository [id number] Date:2467-87-77VH [address] [address]ZD: 12/24/2017 Tertiary NOT GIVENUNK [place] Insurance:SELF PAY [facility] Hospital Number: Effective Repository Date:2017-12-24 11/30/2017 Panda R Primary Panda R [place] [id number] Insurance:MEDICARE KeenerDOB: Community [place] PART A BPolicy Number: [id number], [place] [id number] Repository 58363Ljb: 330) Date:2017-11-30 [phone] () 11/30/2017 Secondary Panda R [place] Insurance:HUMANA KeenerDOB: [facility], [facility]–1983 [facility] [id number] Hospital Number: Repository [id number] Date:0638-12-69GG [address] [address]JH: 11/30/2017 Tertiary NOT GIVENUNK [place] Insurance:SELF PAY [facility] Hospital Number: Effective Repository Date:2017-11-30 10/07/2017 Panda R Primary Panda R [place] [id number] Insurance:MEDICARE KeenerDOB: Community [place] PART A BPolicy Number: [id number], [place] [id number] Repository 449[address]Lko: 330) Date:2017-09-22 [phone] () 10/07/2017 Secondary Panda R [place] Insurance:HUMANA KeenerDOB: [facility], 1928–1983 [facility] [id number] Hospital Number: Repository [id number] Date:5629-06-20DB [address] [address]OI: 10/07/2017 Tertiary NOT GIVENUNK [place] Insurance:SELF PAY [facility], [facility] Number: Effective Repository Date:2017-09-22 10/07/2017 Panda R Primary Panda R [place] [id number] Insurance:MEDICARE KeenerDOB: Community [place] PART A BPolicy Number: [id number], [place] [id number] Repository 95187Fgz: (955) Date:2017-09-22 [phone] (HP) 10/07/2017 Secondary Panda R [place] Insurance:HUMANA KeenerDOB: [facility], 1928–1983 [facility] [id number] Hospital Number: Repository [id number] Date:3978-77-66WT [address] [address]HI: 10/07/2017 Tertiary NOT GIVENUNK [place] Insurance:SELF PAY [facility] Hospital Number: Effective Repository Date:2017-10-07 09/21/2017 Panda R Primary Panda R [place] [id number] Insurance:MEDICARE KeenerDOB: Community [place] PART A BPolicy Number: [id number], [place] [id number] Repository 03306Apq: (893) Date:2017-09-21 [phone] (HP) 09/21/2017 Secondary Panda R [place] Insurance:HUMANA KeenerDOB: [facility], [facility] [id number] Hospital Number: Repository [id number] Date:7897-01-69[place] [address] [address]PO: 09/21/2017 Tertiary NOT GIVENUNK [place] Insurance:SELF PAY [facility], [facility] Number: Effective Repository Date:2017-09-21
== END 2018-08-06 11:43 | disposition skilled nursing facility (03) | DRG 483 ==
LOC: ACINP 05:28 → MS3 07:35
PROVIDERS: Internal Medicine; Admitting Provider Specialist; Family Provider Family Medicine; PCP Family Medicine; Referring Provider Specialist; Visit Provider Specialist
PROC: 0RRK00Z Replacement of Left Shoulder Joint with Reverse Ball and Socket Synthetic Substitute, Open Approach (ICD-10-PCS; CPT 23472; principal; 2018-08-03 06:45)
DX: M12.812 Other specific arthropathies, not elsewhere classified, left shoulder (principal); I50.32 Chronic diastolic (congestive) heart failure; E11.9 Type 2 diabetes mellitus without complications; M10.9 Gout, unspecified; M75.102 Unspecified rotator cuff tear or rupture of left shoulder, not specified as traumatic; I11.0 Hypertensive heart disease with heart failure; I48.2 Chronic atrial fibrillation; Z79.84 Long term (current) use of oral hypoglycemic drugs; Z79.899 Other long term (current) drug therapy; Z79.01 Long term (current) use of anticoagulants; Z87.442 Personal history of urinary calculi; F17.290 Nicotine dependence, other tobacco product, uncomplicated; M19.90 Unspecified osteoarthritis, unspecified site
CPT/HCPCS: 36415; 36416; 73020; 73030; 80048; 82040; 82962; 83036; 85025; 85610; 87081; 94640; 97110; 97162; 97165; 97530; 97535; 99406; C1776; J7040; J7120; A4216

== ENCOUNTER 2018-08-06 11:50 | Inpatient (IN) | payer MEDICARE, OTHER, SELFPAY ==
[2018-08-06 12:12] VITALS: BP 131/84; PULSE 89; RESP 18; TEMP 36.4; O2SAT 95
[2018-08-06 12:14] VITALS: BMI 39.9
[2018-08-06 12:19] VITALS: BMI 40.0
--- NOTE | 2018-08-06 12:31 | NURSING ---
R' ARRIVED ON UNIT AT 1150 VIA WHEELCHAIR FROM MS.
--- NOTE | 2018-08-06 12:31 | NURSING ---
CODE STATUS DISCUSSED WITH R' AND . WISHES TO BE FULL CODE.
[2018-08-06] MEDS: Magnesium Citrate 300 ML PO (13:49)
[2018-08-06 16:00] VITALS: BP 111/76; PULSE 97; RESP 20; TEMP 36.8; O2SAT 94
--- NOTE | 2018-08-06 16:45 | PCM.HP.STD ---
Problem List (1) Right rotator cuff tear arthropathy Status: Chronic (2) Diabetes mellitus Status: Chronic (3) Hypertension Status: Chronic (4) Gout Status: Chronic (5) Osteoarthritis Status: Chronic (6) Chronic diastolic heart failure Status: Chronic (7) Kidney stones Status: Chronic (8) Atrial fibrillation Status: Chronic Qualifiers: History of Present Illness Date of Admission: 08/06/18 Chief Complaint: Here for rehabilitation, strengthening, prior to discharge home with spouse. The patient is a 78 year old Male with below past medical history admitted to hospital for left reverse total shoulder replacement 08/03/[address] Faulkner. 08/04/2018 Patient suffered fall while going to restroom due to unsteadiness, fall risk. 08/05/2018 On coumadin, INR subtherapeutic, recommend TCU. 08/06/2018 Admit to TCU with debility here for rehabilitation, strengthening, prior to discharge home with spouse. Past Medical History Past Medical History (Chronic Problems): Chronic Problems Atrial fibrillation (Chronic) Right rotator cuff tear arthropathy (Chronic) Diabetes mellitus (Chronic) Hypertension (Chronic) Gout (Chronic) Osteoarthritis (Chronic) Chronic diastolic heart failure (Chronic) Kidney stones (Chronic) Allergies No Known Allergies Allergy (Verified 07/22/18 15:08) Home Medications: Ambulatory Orders Medication Instructions Recorded Allopurinol 300 mg PO DAILY 07/23/15 Metformin HCl [Glucophage] 500 mg PO BIDCM 07/23/15 Albuterol Inhaler [Ventolin Hfa] 2 puff INHALATION Q4H PRN PRN 03/21/18 Amlodipine [Norvasc] 5 mg PO DAILY 03/21/18 Furosemide [Lasix] 20 mg PO MOWEFR 03/21/18 Metoprolol Succinate [Toprol Xl] 50 mg PO DAILY 03/21/18 Oxybutynin Chloride [Ditropan Xl] 10 mg PO BID 03/21/18 Warfarin [Coumadin] 2.5 mg PO QODAY 03/21/18 Warfarin [Coumadin] 3 mg PO QODAY 03/21/18 hydroCHLOROthiazide 12.5 mg PO DAILY 03/21/18 [Hydrochlorothiazide] Magnesium 250 mg PO DAILY 07/22/18 Potassium Chloride [Klor-Con] 20 meq PO DAILY 07/22/18 Vitamin B Complex 1 each PO DAILY 07/22/18 Oxycodone [Oxyir] 5 - 10 mg PO Q4H PRN PRN 4 Days 08/04/18 #30 tab Senna/Docusate Sodium [Senokot-S] 2 tab PO BID PRN PRN #20 tab 08/04/18 Acetaminophen [Tylenol Extra 1,000 mg PO Q8H PRN PRN 08/06/18 Strength] Surgical History: herniorrhaphy, total knee arthroplasty - Bilateral., - - Right wrist fracture, Kidney stones, Bilateral carpal tunnel release, back surgery. Psychiatric History: No pertinent psych hx Lives: Spouse/ Significant Other Smoking Status: Current some day smoker Tobacco Use: Cigarettes Alcohol: None Drugs: None - *Family History Maternal History Items: No pertinent history Paternal History Items: No pertinent history Review of Systems Constitutional: Denies: Chills, Fever, Weight Change HEENT: Denies: Head Aches, Sinus Congestion, Sinus Drainage Cardiovascular: Denies: Chest Pain, Palpitations Respiratory: Denies: Cough, Shortness of breath at rest, Sputum production Gastrointestinal: Reports: Abdominal Pain, Constipation. Denies: Nausea, Vomiting Genitourinary: Denies: Dysuria Musculoskeletal: Denies: Joint Pain, Joint Tenderness Skin: Denies: Rash, Wounds Neurological: Denies: Numbness, Tingling, Focal weakness Psychiatric: Denies: Anxiety, Depression, Homicidal Ideations, Suicidal Ideations Hematologic/ Lymphatic: Denies: Easy Bruising, Easy Bleeding VTE Information - Inpt Only VTE Present on Admission: No VTE Mechan Device Prophylaxis: Knee High ALBERTO Hose VTE Pharm Prophylaxis ordered?: No Reason prophylaxis not ordered:: Treatment Not Indicated - Physical Exam General: Alert, Oriented x3, Cooperative HEENT: Atraumatic, PERRLA, EOMI, Normocephalic Neck: Supple, No JVD, Negative Carotid Bruits Lungs: Clear to auscultation, Normal air movement Cardiovascular: Regular rate, No murmurs Abdomen: Bowel Sounds Present, Soft, Non Tender Extremities: No edema, Capillary Refill Less than 3 Seconds Skin: No rashes, No breakdown Musculoskeletal: No Tenderness to Palpation of Joints or Extremities, - - Left shoulder Ultra Sling, dressing clean, dry, intact. Neurological: Cranial nerves II-XII grossly intact Psych/Mental Status: Normal Affect, Appropriate Vital Signs Temp Pulse Resp BP Pulse Ox 98.2 F 97 20 H 111/76 94 08/06/18 16:00 08/06/18 16:00 08/06/18 16:00 08/06/18 16:00 08/06/18 16:00 Oxygen Delivery Method Room Air Weight: 122.833 kg Body Mass Index (BMI) 39.9 Finger Stick Blood Glucose 196 Assessment/Plan 78 year old male with below past medical history hospitalized for left reverse total shoulder replacement 08/03/[address] Faulkner, complicated by fall, admitted to TCU with debility, here for rehabilitation, strengthening, prior to discharge home with spouse. Debility - PT/OT. Pain - Tylenol 1000MG Q8H PRN mild pain, Oxycodone 5-10MG Q4H PRN moderate to severe pain. Bowel - Miralax 17GM daily, Senna/colace 2 tablets BID, Dulcolax 10MG PO daily PRN, Mag citrate 300ML PO x 1 dose for clean out, may need Soap Suds Enema. Pneumonia vaccination - Administer Prevnar 13 and/or Pneumovax 23 as necessary. DVT prophylaxis - Not necessary, already on warfarin. Shortness of breath - Albuterol 2 puffs Q4H PRN. Gout - Allopurinol 300MG daily. Hypertension - Metoprolol succinate 50MG daily, Amlodipine 5MG daily, HCTZ 12.5MG daily. Chronic diastolic heart failure - Metoprolol succinate 50MG daily, Lasix 20MG MW. Nutrition - Glucerna Shake 120ML 4x/day. Diabetes Mellitus II - Metformin 500MG BID. Hypokalemia - K-Dur 20MEQ daily. Overactive Bladder - Tolterodine 4MG daily. Atrial Fibrillation - Metoprolol succinate 50MG daily, Warfarin 2.5/3MG alternating, follow INR.
[2018-08-06] MEDS: Glucerna Shake 120 ML LIQUID PO ×2 (16:49→20:54)
--- NOTE | 2018-08-06 16:49 | HP.PCM_ITS ---
Problem List (1) Right rotator cuff tear arthropathy Status: Chronic (2) Diabetes mellitus Status: Chronic (3) Hypertension Status: Chronic (4) Gout Status: Chronic (5) Osteoarthritis Status: Chronic (6) Chronic diastolic heart failure Status: Chronic (7) Kidney stones Status: Chronic (8) Atrial fibrillation Status: Chronic Qualifiers: History of Present Illness Date of Admission: 08/06/18 Chief Complaint: Here for rehabilitation, strengthening, prior to discharge home with spouse. The patient is a 78 year old Male with below past medical history admitted to hospital for left reverse total shoulder replacement 08/03/[address] Faulkner. 08/04/2018 Patient suffered fall while going to restroom due to unsteadiness, fall risk. 08/05/2018 On coumadin, INR subtherapeutic, recommend TCU. 08/06/2018 Admit to TCU with debility here for rehabilitation, strengthening, prior to discharge home with spouse. Past Medical History Past Medical History (Chronic Problems): Chronic Problems Atrial fibrillation (Chronic) Right rotator cuff tear arthropathy (Chronic) Diabetes mellitus (Chronic) Hypertension (Chronic) Gout (Chronic) Osteoarthritis (Chronic) Chronic diastolic heart failure (Chronic) Kidney stones (Chronic) Allergies No Known Allergies Allergy (Verified 07/22/18 15:08) Home Medications: Ambulatory Orders Medication Instructions Recorded Allopurinol 300 mg PO DAILY 07/23/15 Metformin HCl [Glucophage] 500 mg PO BIDCM 07/23/15 Albuterol Inhaler [Ventolin Hfa] 2 puff INHALATION Q4H PRN PRN 03/21/18 Amlodipine [Norvasc] 5 mg PO DAILY 03/21/18 Furosemide [Lasix] 20 mg PO MOWEFR 03/21/18 Metoprolol Succinate [Toprol Xl] 50 mg PO DAILY 03/21/18 Oxybutynin Chloride [Ditropan Xl] 10 mg PO BID 03/21/18 Warfarin [Coumadin] 2.5 mg PO QODAY 03/21/18 Warfarin [Coumadin] 3 mg PO QODAY 03/21/18 hydroCHLOROthiazide 12.5 mg PO DAILY 03/21/18 [Hydrochlorothiazide] Magnesium 250 mg PO DAILY 07/22/18 Potassium Chloride [Klor-Con] 20 meq PO DAILY 07/22/18 Vitamin B Complex 1 each PO DAILY 07/22/18 Oxycodone [Oxyir] 5 - 10 mg PO Q4H PRN PRN 4 Days 08/04/18 #30 tab Senna/Docusate Sodium [Senokot-S] 2 tab PO BID PRN PRN #20 tab 08/04/18 Acetaminophen [Tylenol Extra 1,000 mg PO Q8H PRN PRN 08/06/18 Strength] Surgical History: herniorrhaphy, total knee arthroplasty - Bilateral., - - Right wrist fracture, Kidney stones, Bilateral carpal tunnel release, back surgery. Psychiatric History: No pertinent psych hx Lives: Spouse/ Significant Other Smoking Status: Current some day smoker Tobacco Use: Cigarettes Alcohol: None Drugs: None - *Family History Maternal History Items: No pertinent history Paternal History Items: No pertinent history Review of Systems Constitutional: Denies: Chills, Fever, Weight Change HEENT: Denies: Head Aches, Sinus Congestion, Sinus Drainage Cardiovascular: Denies: Chest Pain, Palpitations Respiratory: Denies: Cough, Shortness of breath at rest, Sputum production Gastrointestinal: Reports: Abdominal Pain, Constipation. Denies: Nausea, Vomiting Genitourinary: Denies: Dysuria Musculoskeletal: Denies: Joint Pain, Joint Tenderness Skin: Denies: Rash, Wounds Neurological: Denies: Numbness, Tingling, Focal weakness Psychiatric: Denies: Anxiety, Depression, Homicidal Ideations, Suicidal Ideations Hematologic/ Lymphatic: Denies: Easy Bruising, Easy Bleeding VTE Information - Inpt Only VTE Present on Admission: No VTE Mechan Device Prophylaxis: Knee High ALBERTO Hose VTE Pharm Prophylaxis ordered?: No Reason prophylaxis not ordered:: Treatment Not Indicated - Physical Exam General: Alert, Oriented x3, Cooperative HEENT: Atraumatic, PERRLA, EOMI, Normocephalic Neck: Supple, No JVD, Negative Carotid Bruits Lungs: Clear to auscultation, Normal air movement Cardiovascular: Regular rate, No murmurs Abdomen: Bowel Sounds Present, Soft, Non Tender Extremities: No edema, Capillary Refill Less than 3 Seconds Skin: No rashes, No breakdown Musculoskeletal: No Tenderness to Palpation of Joints or Extremities, - - Left shoulder Ultra Sling, dressing clean, dry, intact. Neurological: Cranial nerves II-XII grossly intact Psych/Mental Status: Normal Affect, Appropriate Vital Signs Temp Pulse Resp BP Pulse Ox 98.2 F 97 20 H 111/76 94 08/06/18 16:00 08/06/18 16:00 08/06/18 16:00 08/06/18 16:00 08/06/18 16:00 Oxygen Delivery Method Room Air Weight: 122.833 kg Body Mass Index (BMI) 39.9 Finger Stick Blood Glucose 196 Assessment/Plan 78 year old male with below past medical history hospitalized for left reverse total shoulder replacement 08/03/[address] Faulkner, complicated by fall, admitted to TCU with debility, here for rehabilitation, strengthening, prior to discharge home with spouse. * Debility - PT/OT. * Pain - Tylenol 1000MG Q8H PRN mild pain, Oxycodone 5-10MG Q4H PRN moderate to severe pain. * Bowel - Miralax 17GM daily, Senna/colace 2 tablets BID, Dulcolax 10MG PO daily PRN, Mag citrate 300ML PO x 1 dose for clean out, may need Soap Suds Enema. * Pneumonia vaccination - Administer Prevnar 13 and/or Pneumovax 23 as necessary. * DVT prophylaxis - Not necessary, already on warfarin. * Shortness of breath - Albuterol 2 puffs Q4H PRN. * Gout - Allopurinol 300MG daily. * Hypertension - Metoprolol succinate 50MG daily, Amlodipine 5MG daily, HCTZ 12.5MG daily. * Chronic diastolic heart failure - Metoprolol succinate 50MG daily, Lasix 20MG MWF. * Nutrition - Glucerna Shake 120ML 4x/day. * Diabetes Mellitus II - Metformin 500MG BID. * Hypokalemia - K-Dur 20MEQ daily. * Overactive Bladder - Tolterodine 4MG daily. * Atrial Fibrillation - Metoprolol succinate 50MG daily, Warfarin 2.5/3MG alternating, follow INR.
[2018-08-06 17:11] LABS: Bedside Glucose 150 mg/dL (70-110)
[2018-08-06] MEDS: Senna/Docusate Sodium 1 Tablet 2 TABLET PO (17:56)
[2018-08-06 21:16] LABS: Bedside Glucose 146 mg/dL (70-110)
[2018-08-07] MEDS: Polyethylene Glycol 3350 17 GM PACKET PO (05:45)
[2018-08-07] MEDS: Glucerna Shake 120 ML LIQUID PO ×4 (05:45→21:08)
[2018-08-07 05:46] VITALS: BP 148/87; PULSE 98
[2018-08-07] MEDS: Metoprolol(XL)Succ 50 MG Tablet PO (05:46)
[2018-08-07] MEDS: Tolterodine Tartrate 4 MG CAP.SA PO (05:46)
[2018-08-07] MEDS: hydroCHLOROthiazide 12.5mg 12.5 MG PO (05:46)
[2018-08-07] MEDS: amLODIPine 5 MG Tablet PO (05:46)
[2018-08-07] MEDS: Allopurinol 300 MG Tablet PO (05:48)
[2018-08-07] MEDS: Senna/Docusate Sodium 1 Tablet 2 TABLET PO ×2 (05:48→16:54)
[2018-08-07 06:46] LABS: Bedside Glucose 153 mg/dL (70-110)
[2018-08-07 07:12] LABS: Absolute Lymphocyte Count 0.71 X10^3/ul (0.83-4.51); Absolute Neutrophil Count 7.8 X10^3/uL (2.0-7.7); Basophil# 0.01 X10^3/uL; Basophil% 0.1 % (0-1); Eosinophil# 0.06 X10^3/uL; Eosinophils% 0.6 % (0-5); Hematocrit 33.2 % (40-54); Hemoglobin 10.9 g/dl (13.0-16.5); Lymphocyte # 0.71 X10^3/ul (4.0); Lymphocyte % 7.4 % (19-41); Mean Corp Hgb Conc 32.8 g/gl (32-36); Mean Corpuscular Hgb 30.9 pg (27.0-32.0); Mean Corpuscular Volume 94.1 fL (80-94); Mean Platelet Vol. 9.2 fl (6.2-12.0); Monocyte# 0.93 X10^3/uL; Monocyte% 9.7 % (0-10); Neutrophil # 7.82 X10^3/uL (2.7-7.7); Platelet Count 248 K/mm3 (150-450); RBC Distribution Width CV 13.3 % (11.6-14.6); RBC Distribution Width SD 45.8 fl (35.1-43.9); Red Blood Count 3.53 M/mm3 (4.6-6.2); White Blood Count 9.6 K/mm3 (4.4-11.0)
[2018-08-07 07:13] LABS: POSITIVE COUNT NO; POSITIVE DIFFERENTIAL NO; POSITIVE MORPHOLOGY NO
[2018-08-07 07:27] LABS: Anion Gap 7 (5-15); BUN 19 mg/dL (7-18); BUN/Creat Ratio 18.1 RATIO (10-20); Calcium,Total 8.4 mg/dL (8.5-10.1); Chloride 103 mmol/L (98-107); Creatinine, Serum 1.05 mg/dL (0.70-1.30); EST Glomerular Filtration Rate 72 mL/min (>60); Est Glom Filt Rate - Afr Amer 87 mL/min (>60); Estimated Creatinine Clearance 56.11 ml/min; Glucose 160 mg/dL (74-106); Potassium 3.9 mmol/L (3.5-5.1); Sodium Level 139 mmol/L (136-145)
[2018-08-07] MEDS: Tuberculin,Purif.prot.deriv. 50 TU/ML Vial 5 ML ID (10:14)
[2018-08-07 11:36] LABS: Bedside Glucose 119 mg/dL (70-110)
[2018-08-07 14:52] VITALS: BP 135/88; PULSE 83; RESP 24; TEMP 36.5; O2SAT 95
[2018-08-07 15:03] VITALS: PULSE 109; RESP 18; O2SAT 96
[2018-08-07 17:40] LABS: Bedside Glucose 180 mg/dL (70-110)
[2018-08-07 21:06] LABS: Bedside Glucose 155 mg/dL (70-110)
[2018-08-08] MEDS: oxyCODONE 5 MG Tablet PO ×2 (02:22→07:57)
[2018-08-08 05:29] VITALS: BP 156/95; PULSE 91
[2018-08-08] MEDS: amLODIPine 5 MG Tablet PO (05:29)
[2018-08-08] MEDS: Metoprolol(XL)Succ 50 MG Tablet PO (05:29)
[2018-08-08] MEDS: Senna/Docusate Sodium 1 Tablet 2 TABLET PO ×2 (05:29→17:06)
[2018-08-08] MEDS: Allopurinol 300 MG Tablet PO (05:29)
[2018-08-08] MEDS: Polyethylene Glycol 3350 17 GM PACKET PO (05:29)
[2018-08-08] MEDS: Tolterodine Tartrate 4 MG CAP.SA PO (05:29)
[2018-08-08] MEDS: hydroCHLOROthiazide 12.5mg 12.5 MG PO (05:29)
[2018-08-08] MEDS: Glucerna Shake 120 ML LIQUID PO ×4 (05:30→19:58)
[2018-08-08 06:23] LABS: International Normalized Ratio 1.3; Prothrombin Time (Protime)PT. 16.1 SECONDS (11.7-14.9)
[2018-08-08 07:16] LABS: Bedside Glucose 143 mg/dL (70-110)
--- NOTE | 2018-08-08 09:35 | EKG12_ITS ---
Test Reason : Blood Pressure : / mmHG Vent. Rate : 101 BPM Atrial Rate : 101 BPM P-R Int : 176 ms QRS Dur : 090 ms QT Int : 374 ms P-R-T Axes : 084 012 046 degrees QTc Int : 484 ms Sinus tachycardia with frequent Premature ventricular complexes Otherwise normal ECG When compared with ECG of 22-JUL-2018 15:43, Premature ventricular complexes are now Present Confirmed by CRUZITO CARPENTER ([id number]), editorial intern QUENTIN RIVERA ([id number]) on 08/17/2018 2:53:15 PM Referred By: MARK Confirmed By:CRUZITO CARPENTER
--- NOTE | 2018-08-08 09:38 | NURSING ---
Addendum entered by Barbra Gan 08/08/18 17:18: dr ellis reviewed xray results, no new orders. Original Note: Addendum entered by Barbra Gan 08/08/18 11:04: ortho's negative. pt doing fine now. requesting to go home soon, JASPREET Fairchild aware. Original Note: Addendum entered by Barbra Gan 08/08/18 09:55: Dr Ellis updated, new order for chest xray & check ortho's. If positive, give 1/2 liter bolus NS, if negative. Nothing else needed. Pt going down for chest xray at this time via WC Original Note: Pt returned from therapy very diaphoretic, short of breath with audible expiratory wheezes. HR 118 Respirations 20 BP 157/106. Spo2 74% , Spo2 improved with rest. Pt face red and flushed. Barbra FUNG aware EKG ordered.
[2018-08-08 09:46] VITALS: BP 157/106; PULSE 108; RESP 20; O2SAT 90
--- NOTE | 2018-08-08 09:49 | RAD_ITS ---
STUDY: X-RAY CHEST REASON FOR EXAM: Male, 78 years old. Acute onset of chest pain. Recent left shoulder surgery. TECHNIQUE: PA and lateral views of the chest. COMPARISON: None. FINDINGS: Focal eventration of the anterior medial aspect of the right hemidiaphragm. Mild increased linear markings at the lung bases suggestive of mild bibasilar scarring. No focal infiltrate is seen. There is no demonstrated pleural abnormality. Normal size heart. Normal mediastinum and amauri. Normal visualized pulmonary arteries. There is atherosclerotic tortuosity of the aortic arch and descending thoracic aorta. There are diffuse degenerative changes of the visualized thoracic spine. The patient is status post left shoulder replacement. There is no demonstrated abnormality of the visualized soft tissue structures of the upper abdomen. RAD/Chest PA and Lateral IMPRESSION: Mild increased markings at the lung bases suggestive of linear scarring. Electronically Signed: Dong Multani MD at 10:48 EST Tel [phone], Service support ,
[2018-08-08 10:00] VITALS: PULSE 106; RESP 18; O2SAT 90
[2018-08-08 10:38] VITALS: BP 138/94; BP 140/92; BP 150/88; PULSE 88; PULSE 90
--- NOTE | 2018-08-08 13:28 | CASEMGMT ---
Brief interview for mental status (BIMS) and resident mood interview (PHQ-9) completed on this day. BIMS score 14/15. PHQ-9 score 01/16. JASPREET Apodaca, QUARTZ CUTTER
--- NOTE | 2018-08-08 13:28 | CASEMGMT ---
Social Work Spoke with resident and resident spouse in room. Resident requesting for discharge date to be set for 08/09/18. Team agreeable to discharge date. Resident plans to discharge to home with spouse. Physical therapy is recommending for resident to continue with service within the home for endurance training. Resident is not agreeable to recommendation and plans to follow up with surgeon on 08/18/18 to see further recommendations for therapy. Resident spouse to provide transportation home for resident at time of discharge. Resident reporting to have all needed durable medical equipment already set up within the home. Support given. Proposed discharge date: 08/09/18 PLAN: Discharge to home with spouse. JASPREET Apodaca, RESEARCH PHLEBOTOMIST
[2018-08-08 16:00] VITALS: BP 131/72; PULSE 96; RESP 20; TEMP 36.7; O2SAT 93
--- NOTE | 2018-08-08 20:25 | DCINST_ITS ---
- Discharge Diagnoses Current Active Problems: Current Active and Chronic Problems Right rotator cuff tear arthropathy (Chronic) Diabetes mellitus (Chronic) Hypertension (Chronic) Gout (Chronic) Osteoarthritis (Chronic) Chronic diastolic heart failure (Chronic) Kidney stones (Chronic) You will use the following diet at home:: No restrictions, Regular Your food should be the consistency of: Regular Your liquids should be the consistency of: Regular/Thin Discharge Activity: Return to Normal Activity, May Shower, Use Walker Weight Bearing Status: Weight bearing as tolerated Call your doctor if you observe: Fever of 101 or Higher, Inability to urinate, Inability to have a bowel movement, Shortness of breath, Chest pain, Uncontrolled pain Allergies/Adverse Reactions: Allergies No Known Allergies Allergy (Verified 07/22/18 15:08) Medications to take at Discharge Allopurinol 300 mg PO DAILY 07/23/15 Metformin HCl [Glucophage] 500 mg PO BIDCM 07/23/15 Amlodipine [Norvasc] 5 mg PO DAILY 03/21/18 Oxybutynin Chloride [Ditropan Xl] 10 mg PO BID 03/21/18 Warfarin [Coumadin] 2.5 mg PO QODAY 03/21/18 Warfarin [Coumadin] 3 mg PO QODAY 03/21/18 hydroCHLOROthiazide [Hydrochlorothiazide] 12.5 mg PO DAILY 03/21/18 Magnesium 250 mg PO DAILY 07/22/18 Vitamin B Complex 1 each PO DAILY 07/22/18 Acetaminophen [Tylenol] 1,000 mg PO Q8H PRN PRN 08/06/18 Albuterol Inhaler [Ventolin Hfa] 2 puff INHALATION Q4H PRN PRN #1 inhaler 08/08/18 Furosemide [Lasix] 20 mg PO MOWEFR #12 tablet 08/08/18 Metoprolol(XL)Succ [Toprol Xl (Beta Zeina)] 50 mg PO DAILY #30 tablet 08/08/18 Oxycodone [Oxyir] 5 - 10 mg PO Q4H PRN PRN 7 Days #30 tab 08/08/18 Peg 3350/Na Sulf,Bicarb,Cl/KCl [Peg-3350 and Electrolytes Soln] 4,000 ml PO X1 1 Days #4000 soln.recon 08/08/18 Polyethylene Glycol 3350 [Miralax] 17 gm PO DAILY #30 packet 08/08/18 Potassium Chloride [K-Dur] 20 meq PO DAILYCM #30 tablet 08/08/18 Senna/Docusate Sodium [Senokot-S] 2 tab PO BID PRN PRN #60 tab 08/08/18 The following prescriptions were given: Albuterol Inhaler [Ventolin Hfa] 2 puff INHALATION Q4H PRN PRN #1 inhaler PRN Reason: Sob &/Or Wheezing Oxycodone [Oxyir] 5 - 10 mg PO Q4H PRN PRN 7 Days #30 tab PRN Reason: Mod-Severe Pain (-06/01) Furosemide [Lasix] 20 mg PO MOWEFR #12 tablet Metoprolol(XL)Succ [Toprol Xl (Beta Zeina)] 50 mg PO DAILY #30 tablet Peg 3350/Na Sulf,Bicarb,Cl/KCl [Peg-3350 and Electrolytes Soln] 4,000 ml PO X1 1 Days #4000 soln.recon Polyethylene Glycol 3350 [Miralax] 17 gm PO DAILY #30 packet Potassium Chloride [K-Dur] 20 meq PO DAILYCM #30 tablet Senna/Docusate Sodium [Senokot-S] 2 tab PO BID PRN PRN #60 tab PRN Reason: Constipation Primary Care Physician: Man Cha MD [Primary Care Provider] - Please follow up with your Primary Care Physician in: 1 week. Test Results: Test results from this visit will be discussed in further detail at your follow- up appointment, if applicable. Please Follow Up With: Dennis Page PA-C When: 2 weeks. Please Follow Up With: [facility] PT- [place] When: 1 week. Please Follow Up With: Man Cha MD When: after DC Proposed Discharge Date: 08/09/18
--- NOTE | 2018-08-08 20:25 | PCM.DC.SUM ---
Discharge Date and Diagnosis Date of Admission: 08/06/18 Date of Discharge: 08/09/18 - Secondary Discharge Diagnosis Chronic Problems Atrial fibrillation (Chronic) Right rotator cuff tear arthropathy (Chronic) Diabetes mellitus (Chronic) Hypertension (Chronic) Gout (Chronic) Osteoarthritis (Chronic) Chronic diastolic heart failure (Chronic) Kidney stones (Chronic) Hospital Course and Treatment Imaging Results: 08/06/18 12:07 Diet: Calorie Controlled How many daily calories?: 1800 calorie Clinical Impression(s) from Imaging Studies Chest X-Ray 08/08/18 09:49 IMPRESSION: Mild increased markings at the lung bases suggestive of linear scarring. Electronically Signed: Dong Multani MD at 10:48 EST Tel [phone], Service support , Labs (Last 48 Hours) 08/06/18 08/07/18 08/07/18 21:05 06:36 06:46 WBC 9.6 RBC 3.53 L Hgb 10.9 L Hct 33.2 L MCV 94.1 H MCH 30.9 MCHC 32.8 RDW 13.3 RDW Differential 45.8 H Plt Count 248 MPV 9.2 Immature Gran % (Auto) 0.200 Neut % (Auto) 82.0 H Lymph % (Auto) 7.4 L [place] % (Auto) 9.7 Eos % (Auto) 0.6 Baso % (Auto) 0.1 Absolute Neuts (auto) 7.8 H Absolute Lymphs (auto) 0.71 L Total Counted Not Reportable PT INR Sodium Potassium Chloride Carbon Dioxide Anion Gap BUN Creatinine Estim Creat Clear Calc Est GFR (MDRD) Af Amer Est GFR (MDRD) Non-Af BUN/Creatinine Ratio Glucose Calcium POC Glucose 146 H 153 H 08/07/18 08/07/18 08/07/18 06:46 11:26 17:33 WBC RBC Hgb Hct MCV MCH MCHC RDW RDW Differential Plt Count MPV Immature Gran % (Auto) Neut % (Auto) Lymph % (Auto) [place] % (Auto) Eos % (Auto) Baso % (Auto) Absolute Neuts (auto) Absolute Lymphs (auto) Total Counted PT INR Sodium 139 Potassium 3.9 Chloride 103 Carbon Dioxide 29.0 Anion Gap 7 BUN 19 H Creatinine 1.05 Estim Creat Clear Calc 56.11 Est GFR (MDRD) Af Amer 87 Est GFR (MDRD) Non-Af 72 BUN/Creatinine Ratio 18.1 Glucose 160 H Calcium 8.4 L POC Glucose 119 H 180 H 08/07/18 08/08/18 08/08/18 21:01 05:10 06:59 WBC RBC Hgb Hct MCV MCH MCHC RDW RDW Differential Plt Count MPV Immature Gran % (Auto) Neut % (Auto) Lymph % (Auto) [place] % (Auto) Eos % (Auto) Baso % (Auto) Absolute Neuts (auto) Absolute Lymphs (auto) Total Counted PT 16.1 H INR 1.3 Sodium Potassium Chloride Carbon Dioxide Anion Gap BUN Creatinine Estim Creat Clear Calc Est GFR (MDRD) Af Amer Est GFR (MDRD) Non-Af BUN/Creatinine Ratio Glucose Calcium POC Glucose 155 H 143 H Operations: None Procedures: None Summary of Care Provided: The patient is a 78 year old Male with below past medical history hospitalized for left reverse total shoulder replacement 08/03/[address] Faulkner, complicated by fall, admitted to TCU with debility, here for rehabilitation, strengthening, prior to discharge home with spouse. Discharge home with spouse. - Physical Exam Vital Signs Temp Pulse Resp BP Pulse Ox 98.0 F 96 20 H 131/72 H 93 08/08/18 16:00 08/08/18 16:00 08/08/18 16:00 08/08/18 16:00 08/08/18 16:00 Oxygen Delivery Method Room Air Weight: 122.833 kg Body Mass Index (BMI) 39.9 Finger Stick Blood Glucose 196 Orthostatic Vital Signs Start: 08/08/18 10:38 Freq: X1 Status: Active Protocol: Activity Type Activity Date Activity User E-Sign Co-Sign Detail Recorded Client Recorded Date Recorded By Document 08/08/18 10:38 LATRELL [id number] 08/08/18 10:40 LATRELL 08/08/18 10:38 Orthostatic Vitals Standing -Blood Pressure (90/60-120/80) 150/88 H -Extremity Use Right Arm -Pulse Rate (60-100) 90 Sitting -Blood Pressure (90/60-120/80) 140/92 H -Extremity Use Right Arm -Pulse Rate (60-100) 90 Lying -Blood Pressure (90/60-120/80) 138/94 H -Extremity Use Right Arm -Pulse Rate (60-100) 88 Intake and Output for Last 24 Hours 08/06/18 08/07/18 08/08/18 23:59 23:59 23:59 Intake Total 360 / 360 1440 / 1440 1080 / 1080 Balance 360 / 360 1440 / 1440 1080 / 1080 Laboratory Tests Past 24 Hrs 08/08/18 05:10 PT 16.1 H INR 1.3 POC Glucose 08/08/18 08/07/18 06:59 21:01 POC Glucose 143 H 155 H Discharge Diet: No Restrictions Discharge Activity: Return to Normal Activity, May Shower, Use Walker Weight Bearing Status: Weight bearing as tolerated Call your doctor if you observe: Fever of 101 or Higher, Inability to urinate, Inability to have a bowel movement, Shortness of breath, Chest pain, Uncontrolled pain Home Medications: Medications to take at Discharge Allopurinol 300 mg PO DAILY 07/23/15 Metformin HCl [Glucophage] 500 mg PO BIDCM 07/23/15 Amlodipine [Norvasc] 5 mg PO DAILY 03/21/18 Oxybutynin Chloride [Ditropan Xl] 10 mg PO BID 03/21/18 Warfarin [Coumadin] 2.5 mg PO QODAY 03/21/18 Warfarin [Coumadin] 3 mg PO QODAY 03/21/18 hydroCHLOROthiazide [Hydrochlorothiazide] 12.5 mg PO DAILY 03/21/18 Magnesium 250 mg PO DAILY 07/22/18 Vitamin B Complex 1 each PO DAILY 07/22/18 Acetaminophen [Tylenol] 1,000 mg PO Q8H PRN PRN 08/06/18 Albuterol Inhaler [Ventolin Hfa] 2 puff INHALATION Q4H PRN PRN #1 inhaler 08/08/18 Furosemide [Lasix] 20 mg PO MOWEFR #12 tablet 08/08/18 Metoprolol(XL)Succ [Toprol Xl (Beta Zeina)] 50 mg PO DAILY #30 tablet 08/08/18 Oxycodone [Oxyir] 5 - 10 mg PO Q4H PRN PRN 7 Days #30 tab 08/08/18 Peg 3350/Na Sulf,Bicarb,Cl/KCl [Peg-3350 and Electrolytes Soln] 4,000 ml PO X1 1 Days #4000 soln.recon 08/08/18 Polyethylene Glycol 3350 [Miralax] 17 gm PO DAILY #30 packet 08/08/18 Potassium Chloride [K-Dur] 20 meq PO DAILYCM #30 tablet 08/08/18 Senna/Docusate Sodium [Senokot-S] 2 tab PO BID PRN PRN #60 tab 08/08/18 Following Prescrptions Were Given to Patient: Albuterol Inhaler [Ventolin Hfa] 2 puff INHALATION Q4H PRN PRN #1 inhaler PRN Reason: Sob &/Or Wheezing Oxycodone [Oxyir] 5 - 10 mg PO Q4H PRN PRN 7 Days #30 tab PRN Reason: Mod-Severe Pain (-06/01) Furosemide [Lasix] 20 mg PO MOWEFR #12 tablet Metoprolol(XL)Succ [Toprol Xl (Beta Zeina)] 50 mg PO DAILY #30 tablet Peg 3350/Na Sulf,Bicarb,Cl/KCl [Peg-3350 and Electrolytes Soln] 4,000 ml PO X1 1 Days #4000 soln.recon Polyethylene Glycol 3350 [Miralax] 17 gm PO DAILY #30 packet Potassium Chloride [K-Dur] 20 meq PO DAILYCM #30 tablet Senna/Docusate Sodium [Senokot-S] 2 tab PO BID PRN PRN #60 tab PRN Reason: Constipation Primary Care Physician: Man Cha MD [Primary Care Provider] - Please follow up with your Primary Care Physician in: 1 week. Please Follow Up With: Dennis Page PA-C When: 2 weeks. Please Follow Up With: [facility]- [place] When: 1 week. Please Follow Up With: Man Cha MD When: after DC Disposition: Home Minutes spent on discharge:: 30 Patient Condition:: Stable Medical Necessity - Tobacco Use Smoking Status: Current some day smoker Tobacco Use: Cigarettes Meaningful Use Info Meaningful Use Diagnoses (Choose all that apply): None applicable
[2018-08-09] MEDS: Allopurinol 300 MG Tablet PO (05:28)
[2018-08-09] MEDS: hydroCHLOROthiazide 12.5mg 12.5 MG PO (05:29)
[2018-08-09] MEDS: amLODIPine 5 MG Tablet PO (05:29)
[2018-08-09] MEDS: Senna/Docusate Sodium 1 Tablet 2 TABLET PO (05:30)
[2018-08-09] MEDS: Tolterodine Tartrate 4 MG CAP.SA PO (05:30)
[2018-08-09 05:32] VITALS: BP 137/90; PULSE 90
[2018-08-09] MEDS: Metoprolol(XL)Succ 50 MG Tablet PO (05:32)
[2018-08-09] MEDS: Glucerna Shake 120 ML LIQUID PO (05:33)
[2018-08-09 06:40] LABS: Bedside Glucose 163 mg/dL (70-110)
--- NOTE | 2018-08-09 09:11 | NURSING ---
PT REFUSED THE PSV-23. STATED HE ALREADY HAD THE SHOT.
[2018-08-09 09:48] VITALS: PULSE 111; RESP 18; O2SAT 92
[2018-08-09 12:39] VITALS: BP 146/82; PULSE 88; RESP 22; TEMP 36.9; O2SAT 96
--- NOTE | 2018-08-11 11:48 | MDS.RN ---
Information for the mds was obtained from review of the clinical record, interview of resident, staff, and direct observation of resident's care.
--- OUTSIDE RECORDS SUMMARY | 2018-11-09 10:14 | XMS RPT_ITS ---
:1940 Author Organization OHIP Support Name Relationship Address Phone DONELL FLOYD Unavailable [address] + [place] [address] R Unavailable Unavailable Unavailable FOZIA, DONELL Unavailable [address] + [place] [address] R Unavailable Unavailable Unavailable FOZIA DONELL Unavailable [address] + [place] [address] R Unavailable Unavailable Unavailable FOZIA, DONELL Unavailable [address] + [place] [address] R Unavailable Unavailable Unavailable FOZIA, DONELL Unavailable [address] + [place] [address] R Unavailable Unavailable Unavailable FOZIA, DONELL Unavailable [address] + [place] [address] R Unavailable Unavailable Unavailable FOZIA, DONELL Unavailable [address] + [place] [address] R Unavailable Unavailable Unavailable FOZIA, DONELL Unavailable [address] + [place] [address] R Unavailable Unavailable Unavailable FOZIA, DONELL Unavailable [address] + [place] [address] R Unavailable Unavailable Unavailable FOZIA, DONELL Unavailable [address] + [place] [address] R Unavailable Unavailable Unavailable FOZIA, DONELL Unavailable [address] + [place] [address] R Unavailable Unavailable Unavailable FOZIA, DONELL Unavailable [address] + [place] [address] R Unavailable Unavailable Unavailable FOZIA, DONELL Unavailable [address] + [place] [address] R Unavailable Unavailable Unavailable FOZIA, DONELL Unavailable [address] + [place] [address] R Unavailable Unavailable Unavailable FOZIADUSTINCY Unavailable [address] + [place] [address] R Unavailable Unavailable Unavailable FOZIADUSTINCY Unavailable [address] + [place] [address] R Unavailable Unavailable Unavailable FOZIADONELL Unavailable [address] + [place] [address] R Unavailable Unavailable Unavailable FOZIADUSTINCY Unavailable [address] + [place] [address] R Unavailable Unavailable Unavailable FOZIADUSTINCY Unavailable [address] + [place] [address] R Unavailable Unavailable Unavailable FOZIADUSTINCY Unavailable [address] + [place] [address] R Unavailable Unavailable Unavailable FOZIADUSTINCY Unavailable [address] + [place] [address] R Unavailable Unavailable Unavailable FOZIADUSTINCY Unavailable [address] + [place] [address] R Unavailable Unavailable Unavailable Care Team Providers Name Role Phone JUAN CHIN Attending Unavailable JUAN CHIN Referring Unavailable [facility] MAN [facility] Care Unavailable FELICE CHINH Attending Unavailable GIUSEPPE, JUAN Referring Unavailable GIUSEPPE, JUAN E Referring Unavailable NATHAN CHENEY Referring Unavailable GIUSEPPE, JUAN E Attending Unavailable [...] Attending Unavailable GIUSEPPE, JUAN E Referring Unavailable Jp Sanabria Attending Unavailable Vick Faulkner Referring Unavailable Vick Faulkner Admitting Unavailable Paintsil, [place] Attending Unavailable Vick Faulkner Referring Unavailable [facility], Man Primary Care Unavailable Paint[place], [place] Consulting Unavailable Vick Faulkner Consulting Unavailable Vick Faulkner Admitting Unavailable Paint[place], [place] Attending Unavailable Kaushik, Vick Referring Unavailable Starla, Man Primary Care Unavailable Paint[place], [place] Consulting Unavailable Kaushik, Vick Consulting Unavailable Kaushik, Vick Admitting Unavailable Paint[place], [place] Attending Unavailable Kaushik, Vick Referring Unavailable [facility], Man Primary Care Unavailable Paint[place], [place] Consulting Unavailable Kaushik, Vick Consulting Unavailable Kaushik, Vick Admitting Unavailable Paintsil, [place] Attending Unavailable Kaushik, Vick Referring Unavailable [facility], Man Primary Care Unavailable Paintsil, [place] Consulting Unavailable Kaushik, Vick Consulting Unavailable Franco, Nima Chi Admitting Unavailable Franco, Nima Chi Attending Unavailable [facility], [place] Primary Care Unavailable Polo Carpenter Attending Unavailable Franco, Nima Chi Referring Unavailable [facility], Man Primary Care Unavailable Manoj Alberto Attending Unavailable Starla, Man Attending Unavailable Starla, Man Referring Unavailable [facility], [facility] Care Unavailable Starla, Man Attending Unavailable Starla, Man Referring Unavailable [facility], [facility] Care Unavailable Jp Sanabria Attending Unavailable MoodisJp chatterjee Referring Unavailable Starla, [place] Primary Care Unavailable Moodissen, Jp Consulting Unavailable Kaushik, Vick Attending Unavailable Starla, [facility] Care Unavailable Kaushik, Vick Admitting Unavailable Kaushik, Vick Attending Unavailable Juve Faulkneren Referring Unavailable [facility], [facility] Care Unavailable Paintsil, [place] Consulting Unavailable Kaushik, Vick Attending Unavailable [facility], [facility] Care Unavailable Vick Faulkner Referring Unavailable Moodissen, Jp Attending Unavailable MoodJp gaspar Referring Unavailable Anish Dalton D.O. Attending Unavailable Jp Sanabria Referring Unavailable Starla, Man Primary Care Unavailable MoodisJp chatterjee Consulting Unavailable MoodisJp chatterjee Attending Unavailable Jp Sanabria Referring Unavailable Starla, Man Primary Care Unavailable Starla, Man Attending Unavailable Starla, Man Referring Unavailable [facility], Man Primary Care Unavailable Starla, Man Attending Unavailable [facility], [place] Primary Care Unavailable Darwin Louis Attending Unavailable Starla, Man Referring Unavailable Starla, Man Attending Unavailable [facility], Man Primary Care Unavailable Jp Sanabria Attending Unavailable Starla, Man Referring Unavailable PROBLEMS PROBLEMS DATE TYPE CONDITION / CODE ATTENDING STATUS SOURCE 09/10/2018 Unknown R52 - Pain, Dolly, Active [place] unspecified / [facility] R52(ICD-10) Hospital Repository 08/31/2018 Unknown R00.0 - Polo Carpenter Active [place] Tachycardia, Community unspecified / Hospital R00.0(ICD-10) Repository 08/09/2018 Unknown Z47.1 - Aftercare Franco, Nima Chi Active [place] following joint Community replacement surgery Hospital / Z47.1(ICD-10) Repository 08/09/2018 Unknown M12.811 - Other Franco, Nima Chi Active [facility] specific Community arthropathies, not Hospital elsewhere Repository classified, right shoulder / M12.811(ICD-10) 08/09/2018 Unknown M75.101 - Franco, Nima Chi Active [place] Unspecified rotator Community cuff tear or Hospital rupture of right Repository shoulder, not specified as traumatic / M75.101(ICD-10) 08/06/2018 Unknown 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 KaushikVick hayden Active [facility] of left artificial Community shoulder joint / Hospital Z96.612(ICD-10) Repository 08/01/2018 Unknown I10 - Essential MoodispawJp Active [facility] (primary) Community hypertension / Hospital I10(ICD-10) Repository 05/02/2018 Unknown I48.0 - Paroxysmal MoodispawJp Active [facility] atrial fibrillation Community / I48.0(ICD-10) Hospital Repository 05/02/2018 Unknown 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, 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 / I48.1(ICD-10) Hospital Repository 02/10/2018 Active Paroxysmal atrial NA Active [place] fibrillation / Clinic Main I48.0(ICD-10) [facility] Repository 01/18/2018 Active Encounter for NA Active [place] screening for Clinic Main malignant neoplasm [facility] of colon / Repository Z12.11(ICD-10) 2015 Active [facility] (primary) NA Active [place] hypertension / Clinic Main I10(ICD-10) [facility] Repository 01/07/2018 Active 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) / Repository D50.0(ICD-10) 01/07/2018 Admitting Unknown / JUAN CHIN Active [place] [facility] diagnosis [facility] Repository 11/30/2017 Unknown I49.9 - Cardiac Man Cha Active [facility] arrhythmia, Community unspecified / Hospital I49.9(ICD-10) Repository 11/30/2017 Unknown E11.9 - Type 2 Man Cha diabetes mellitus Community without Hospital complications / Repository E11.9(ICD-10) 11/30/2017 Unknown R60.9 - Edema, Man Cha [facility] unspecified / Community R60.9(ICD-10) Hospital Repository 10/07/2017 Unknown I50.9 - Heart Man Cha failure, Community unspecified / Hospital I50.9(ICD-10) Repository 10/07/2017 Unknown R06.00 - Dyspnea, Man Cha Active [facility] unspecified / Community R06.00(ICD-10) Hospital Repository PROCEDURES PROCEDURES No Procedure Records FoundRESULTS RESULTS EXTREMITY LOWER Observed: 09/13/2018 Status: F Source: [place] WITHOUT CONTRA 11:46 AM [facility] Imaging Services [address] [place] [address] Extremity Lower without Contra MR#: [id number] Acct: [id number] Name: PANDA FLOYD Rep #: [id number] : 1940 M 78 From: Dong Multani MD PCP: Man Cha MD Status: REG CLI Study: Extremity Lower without Contra Date of Exam: 09/13/18 Exam# [id number] Ordering Dr: Man Cha MD STUDY: CT [...] tissue prominence of the iliac is muscle. Ktyj-fu-kemcufmq degree of degenerative changes of the hip joint. CT/Extremity Lower without Contra IMPRESSION: Diffuse soft tissue swelling involving the hip joint as described. An inflammatory process or synovial hypertrophy should be ruled out. Degenerative changes of the hip joint. Electronically Signed: Dong Multani MD at 13:48 EST Tel [phone], Service support , CC: Man Cha MD Assisted Living Nursing Director: Signed EMERGENCY DEPARTMENT Observed: 09/10/2018 Status: F Source: [place] SUMMARY 2:47 PM [facility] Medical Records Department [address] [place] [address] Emergency Department Summary 09/10/18 0803 MR#: [id number] Acct: [id number] Name: PANDA FLOYD Rep #: [id number] : 1940 78 From: Manoj Alberto MD [...] therapeutic he will be prescribed a walker Eustace No. 12 for pain to use as needed if Tylenol is ineffective and follow-up with his family physicians and return for change in symptoms Disposition: [] Impression: [] Right hip posterior back pain with some radicular symptoms, status post left shoulder replacement This note was generated with HangItation software. It may contain incorrect words, spelling, and punctuation that were not noted in review of the chart prior to signing ED Disposition - Plan for ED Patient: Chief Complaint: Lower Extremity Injury Instructions: ED Contusion Hip Prescriptions: Hydrocodone Bitart/Apap 5-325 [Eustace 5MG-325MG] 1 tab PO Q4H PRN PRN 2 Days #10 tab PRN Reason: Pain Referrals: Man Cha MD [Primary Care Provider] - What to do if you have Problems For any increased pain, shortness of breath, bleeding, nausea or vomiting, chest pain, or any unexpected problems, contact your Primary Care Provider. Call [facility] ([phone]) or report to the closest Emergency Room. Call 911 if necessary. 09/10/18 1447 <Electronically signed by Manoj Alberto MD> Date Manoj Alberto MD Cosigner Signature (If Indicated): Date CC: Man Cha MD DISCHARGE INSTRUCTION Observed: 09/10/2018 Status: F Source: [place] 9:29 AM [facility] Medical Records Department [address] [place] [address] Discharge Instruction 09/10/18926 MR#: [id number] Acct: [id number] Name: PANDA FLOYD Rep #: [id number] : 1940 78 From: Manoj Alberto MD PCP: Man Cha MD Status: REG ER ED Disposition - Plan for ED Patient: Chief Complaint: Lower Extremity Injury Instructions: ED Contusion Hip Prescriptions: Hydrocodone Bitart/Apap 5-325 [Eustace 5MG-325MG] 1 tab PO Q4H PRN PRN 2 Days #10 tab PRN Reason: Pain Referrals: Man Cha MD [Primary Care Provider] - What to do if you have Problems For any increased pain, shortness of breath, bleeding, nausea or vomiting, chest pain, or any unexpected problems, contact your Primary Care Provider. Call [facility] ([phone]) or report to the closest Emergency Room. Call 911 if necessary. 09/10/18 0929 <Electronically signed by Manoj Alberto MD> Date Manoj Alberto MD Cosigner Signature (If Indicated): Date CC: Man Cha MD HIP, UNI W/ PELVIS Observed: 09/10/2018 Status: F Source: [place] 2-3 VIEWS 8:01 AM [facility] Imaging Services [address] [facility] [address] HIP, UNI W/ Pelvis 2-3 Views MR#: [id number] Acct: [id number] Name: PANDA FLOYD Rep #: [id number] : 1940 78 From: Fadumo Rivera MD PCP: Man Cha MD Status: REG ER Study: HIP, UNI W/ Pelvis 2-3 Views Date of Exam: 09/10/18 Exam# [id number] Ordering Dr: Manoj Alberto MD STUDY: X-RAY [...] CC: MD Sabina Alberto; Man Cha MD Assisted Living Nursing Director: Signed LUMBAR SPINE 2 OR 3 Observed: 09/10/2018 Status: F Source: [place] VIEWS 8:01 AM [facility] Imaging Services [address] [place] [address] Lumbar Spine 2 or 3 Views MR#: [id number] Acct: [id number] Name: PANDA FLOYD Rep #: [id number] : 1940 M 78 From: Fadumo Rivera MD PCP: Man Cha MD Status: REG ER Study: Lumbar Spine 2 or 3 Views Date of Exam: 09/10/18 Exam# [id number] Ordering Dr: Manoj Alberto MD STUDY: X-RAY [...] CC: MD Sabina Alberto; Man Cha MD Assisted Living Nursing Director: Signed 12 LEAD ELECTROCARDIOGRAM Observed: 08/17/2018 Status: F Source: [place] 2:53 PM [facility] Cardiovascular Services [address] [place] [address] 12 Lead EKG 08/08/18 0937 MR#: [id number] Acct: [id number] Name: PANDA FLOYD Rep #: [id number] : 1940 78 From: Polo Carpenter MD Attending Dr: Franco LOPES,Nima Nguyen Status: DIS IN Ordering Dr: Nima Gamez MD Date: 08/08/18 Location: [facility] Sex: M C Admitted: 08/06/18 Test Reason [...] now Present Confirmed by POLO CARPENTER ([id number]), editorial specialist QUENTIN RIVERA ([id number]) on 08/17/2018 2:53:15 PM Referred By: FRANCO Confirmed By:POLO CARPENTER 08/17/18 1453 Date Polo Carpenter MD CC: Man Cha MD; Nima Gamez MD Signed BEDSIDE GLUCOSE Collected: 08/09/2018 Status: F Source: [place] 6:16 AM [facility] TYPE CODE TESTS RESULT OUT OF REFERENCE UNITS RANGE LAB L501.080 70-110 mg/dL High BEDSIDE GLU 163 Result Comment: MANAGEMENT OF PATIENT CARE PER NURSING PROTOCOL Performed By: #### L501.080 #### [facility] Point of Care [address] [place] [address] DISCHARGE SUMMARY Observed: 08/08/2018 Status: F Source: [place] 8:26 PM [facility] Medical Records Department [address] [place] [address] Discharge Summary 08/08/182024 MR#: [id number] Acct: [id number] Name: PANDA FLOYD Rep #: [id number] : 1940 78 From: Nima Gamez MD PCP: Man Cha MD Status: ADM IN Location: [place] [address] Discharge Date and Diagnosis Date of Admission: [...] Dong Multani MD at 10:48 EST Tel [phone], Service support , Labs (Last 48 Hours) [...] Date Recorded By Document 08/08/18 10:38 LATRELL [id number] 08/08/18 10:40 LATRELL Orthostatic Vitals Standing -Blood [...] When: 2 weeks. Please Follow Up With: [facility] [place] When: 1 week. Please [...] DISCHARGE INSTRUCTION Observed: 08/08/2018 Status: F Source: [place] 8:25 PM [facility] Medical Records Department [address] [place] [address] Instructions for Home/Discharge Instructions 08/08/182022 MR#: [id number] Acct: [id number] Name: PANDA FLOYD Rep #: [id number] : 1940 78 From: Nima Gamez MD [...] When: 2 weeks. Please Follow Up With: [facility] [place] When: 1 week. Please Follow Up With: Man Cha MD When: after DC Proposed Discharge Date: 08/09/18 08/08/182024 <Electronically signed by Nima Gamez MD> Date Nima Gamez MD CC: Man Cha MD CHEST PA AND LATERAL Observed: 08/08/2018 Status: F Source: [place] 9:50 AM [facility] Imaging Services [address] [place] [address] Chest PA and Lateral MR#: [id number] Acct: [id number] Name: PANDA FLOYD Rep #: [id number] : 1940 M 78 From: Dong Multani MD PCP: Man Cha MD Status: ADM IN Study: Chest PA and Lateral Date of Exam: 08/08/18 Exam# [id number] Ordering Dr: Nima Gamez MD STUDY: X-RAY [...] Dong Multani MD at 10:48 EST Tel [phone], Service support , CC: Man Cha MD; Nima Gamez MD Assisted Living Nursing Director: Signed DISCHARGE SUMMARY Observed: 08/08/2018 Status: F Source: [place] 7:37 AM [facility] Medical Records Department [address] [place] [address] Discharge Summary 08/08/18 0732 MR#: [id number] Acct: [id number] Name: PANDA FLOYD Rep #: [id number] : 1940 78 From: Dennis Page PA-C PCP: Man Cha MD Status: DIS IN Y [place] [id number] Discharge Date and Diagnosis - Primary Discharge [...] was admitted to the 3rd floor at [facility]. The patient's pain was managed with the use of IV and p.o. pain medications. Medicine was consulted for postoperative medical management. Patient participated in physical therapy. Patient did have difficulty with balance and required significant assistance with physical therapy. It was recommended that patient required usp facility upon discharge. Patient was discharged on postoperative day #3 to transitional care unit at [facility]. Patient was given medications stated below. Patient will follow up with [facility] per postop instructions for reassessment. - [...] 08/08/2018 Status: F Source: [place] 6:59 AM [facility] TYPE CODE TESTS RESULT OUT OF REFERENCE UNITS RANGE LAB L501.080 70-110 mg/dL High BEDSIDE GLU 143 Result Comment: MANAGEMENT OF PATIENT CARE PER NURSING PROTOCOL Performed By: #### L501.080 #### [facility] Point of Care [address] [place] [address] PROTHROMBIN TIME W/INR Collected: 08/08/2018 Status: F Source: [place] 5:10 AM [facility] TYPE CODE TESTS RESULT OUT OF RANGE REFERENCE UNITS LAB L300.4150 11.7-14.9 SECONDS High PROTIME 16.1 LAB L300.4200 Normal INR 1.3 Performed By: #### L300.3900 #### [facility] [address] [place], [address] BEDSIDE GLUCOSE Collected: 08/07/2018 Status: F Source: [place] 9:01 PM [facility] TYPE CODE TESTS RESULT OUT OF REFERENCE UNITS RANGE LAB L501.080 70-110 mg/dL High BEDSIDE GLU 155 Result Comment: MANAGEMENT OF PATIENT CARE PER NURSING PROTOCOL Performed By: #### L501.080 #### [facility] Point of Care [address] [place] [address] BEDSIDE GLUCOSE Collected: 08/07/2018 Status: F Source: [place] 5:33 PM [facility] TYPE CODE TESTS RESULT OUT OF REFERENCE UNITS RANGE LAB L501.080 70-110 mg/dL High BEDSIDE GLU 180 Result Comment: MANAGEMENT OF PATIENT CARE PER NURSING PROTOCOL Performed By: #### L501.080 #### [facility] Point of Care [address] [place] [address] BEDSIDE GLUCOSE Collected: 08/07/2018 Status: F Source: [place] 11:26 AM [facility] TYPE CODE TESTS RESULT OUT OF REFERENCE UNITS RANGE LAB L501.080 70-110 mg/dL High BEDSIDE GLU 119 Result Comment: Dr Germain Followed MANAGEMENT OF PATIENT CARE PER NURSING PROTOCOL Performed By: #### L501.080 #### [facility] Point of Care [address] [place] [address] CBC W/DIFF, AUTOMATED Collected: 08/07/2018 Status: F Source: [place] 6:46 AM [facility] TYPE CODE TESTS RESULT OUT OF [...] Lymph 0.71 Performed By: #### L100.0100 #### [facility] [address] [place], [address] BASIC METABOLIC Collected: 08/07/2018 Status: F Source: [place] PROFILE (BMP) 6:46 AM [facility] TYPE CODE TESTS RESULT OUT OF [...] GAP 7 Performed By: #### L500.2500 #### [facility] [address] [place], [address] BEDSIDE GLUCOSE Collected: 08/07/2018 Status: F Source: [place] 6:36 AM [facility] TYPE CODE TESTS RESULT OUT OF REFERENCE UNITS RANGE LAB L501.080 70-110 mg/dL High BEDSIDE GLU 153 Result Comment: MANAGEMENT OF PATIENT CARE PER NURSING PROTOCOL Performed By: #### L501.080 #### [facility] Point of Care [address] [place], [place] [address] BEDSIDE GLUCOSE Collected: 08/06/2018 Status: F Source: [place] 9:05 PM [facility] TYPE CODE TESTS RESULT OUT OF REFERENCE UNITS RANGE LAB L501.080 70-110 mg/dL High BEDSIDE GLU 146 Result Comment: MANAGEMENT OF PATIENT CARE PER NURSING PROTOCOL Performed By: #### L501.080 #### [facility] Point [facility] [address] [place], [place] [address] BEDSIDE GLUCOSE Collected: 08/06/2018 Status: F Source: [place] 5:02 PM [facility] TYPE CODE TESTS RESULT OUT OF REFERENCE UNITS RANGE LAB L501.080 70-110 mg/dL High BEDSIDE GLU 150 Result Comment: MANAGEMENT OF PATIENT CARE PER NURSING PROTOCOL Performed By: #### L501.080 #### [facility] Point of Care [address] [place] [address] HISTORY AND PHYSICAL Observed: 08/06/2018 Status: F Source: [place] EXAM 5:00 PM [facility] Medical Records Department [address] [place] [address] History and Physical 08/06/18 1645 MR#: [id number] Acct: [id number] Name: PANDA FLOYD Rep #: [id number] : 1940 78 From: Nima Gamez MD PCP: Man Cha MD Status: ADM IN Y Location: [place] [address] Problem List (1) Right rotator cuff tear [...] reverse total shoulder replacement 08/03/[address] Faulknre. 08/04/2018 Patient suffered fall while going to [...] Cosigner Signature: Date (if applicable) CC: Man Cah MD; Nima Gamez MD Signed BEDSIDE GLUCOSE Collected: 08/06/2018 Status: F Source: [place] 11:35 AM [facility] TYPE CODE TESTS RESULT OUT OF REFERENCE UNITS RANGE LAB L501.080 70-110 mg/dL High BEDSIDE GLU 156 Result Comment: MANAGEMENT OF PATIENT CARE PER NURSING PROTOCOL Performed By: #### L501.080 #### [facility] Point of Care [facility] [place] [address] CBC W/DIFF, AUTOMATED Collected: 08/06/2018 Status: F Source: [place] 7:30 AM [facility] TYPE CODE TESTS RESULT OUT OF [...] Lymph 0.93 Performed By: #### L100.0100 #### [facility] [address] [facility] [place], [address] PROTHROMBIN TIME W/INR Collected: 08/06/2018 Status: F Source: [place] 7:30 AM [facility] TYPE CODE TESTS RESULT OUT OF RANGE REFERENCE UNITS LAB L300.4150 11.7-14.9 SECONDS High PROTIME 15.9 LAB L300.4200 Normal INR 1.3 Performed By: #### L300.3900 #### [facility] [address] [facility] [place], [address] BASIC METABOLIC Collected: 08/06/2018 Status: F Source: [place] PROFILE (BMP) 7:30 AM [facility] TYPE CODE TESTS RESULT OUT OF [...] GAP 10 Performed By: #### L500.2500 #### [facility] [address] [place], [address] BEDSIDE GLUCOSE Collected: 08/06/2018 Status: F Source: [place] 6:57 AM [facility] TYPE CODE TESTS RESULT OUT OF REFERENCE UNITS RANGE LAB L501.080 70-110 mg/dL High BEDSIDE GLU 148 Result Comment: MANAGEMENT OF PATIENT CARE PER NURSING PROTOCOL Performed By: #### L501.080 #### [facility] Point of Care [address] [place] [address] BEDSIDE GLUCOSE Collected: 08/05/2018 Status: F Source: [place] 10:03 PM [facility] TYPE CODE TESTS RESULT OUT OF REFERENCE UNITS RANGE LAB L501.080 70-110 mg/dL High BEDSIDE GLU 177 Result Comment: MANAGEMENT OF PATIENT CARE PER NURSING PROTOCOL Performed By: #### L501.080 #### [facility] Point of Care [address] [place] [address] BEDSIDE GLUCOSE Collected: 08/05/2018 Status: F Source: [place] 6:01 PM [facility] [place] TYPE CODE TESTS RESULT OUT OF REFERENCE UNITS RANGE LAB L501.080 70-110 mg/dL High BEDSIDE GLU 137 Result Comment: MANAGEMENT OF PATIENT CARE PER NURSING PROTOCOL Performed By: #### L501.080 #### [facility] Point of Care [address] [place] [address] BEDSIDE GLUCOSE Collected: 08/05/2018 Status: F Source: [place] 11:18 AM [facility] [place] TYPE CODE TESTS RESULT OUT OF REFERENCE UNITS RANGE LAB L501.080 70-110 mg/dL High BEDSIDE GLU 149 Result Comment: MANAGEMENT OF PATIENT CARE PER NURSING PROTOCOL Performed By: #### L501.080 #### [facility] Point of Care [address] [place] [address] BEDSIDE GLUCOSE Collected: 08/05/2018 Status: F Source: [place] 6:41 AM [facility] [place] TYPE CODE TESTS RESULT OUT OF REFERENCE UNITS RANGE LAB L501.080 70-110 mg/dL High BEDSIDE GLU 117 Result Comment: MANAGEMENT OF PATIENT CARE PER NURSING PROTOCOL Performed By: #### L501.080 #### [facility] Point of Care [address] [place] [address] BEDSIDE GLUCOSE Collected: 08/04/2018 Status: F Source: [place] 10:17 PM [facility] [place] TYPE CODE TESTS RESULT OUT OF REFERENCE UNITS RANGE LAB L501.080 70-110 mg/dL High BEDSIDE GLU 133 Result Comment: MANAGEMENT OF PATIENT CARE PER NURSING PROTOCOL Performed By: #### L501.080 #### [facility] Point of Care [address] [place] [address] BEDSIDE GLUCOSE Collected: 08/04/2018 Status: F Source: [place] 4:12 PM [facility] [place] TYPE CODE TESTS RESULT OUT OF REFERENCE UNITS RANGE LAB L501.080 70-110 mg/dL High BEDSIDE GLU 155 Result Comment: MANAGEMENT OF PATIENT CARE PER NURSING PROTOCOL Performed By: #### L501.080 #### [facility] Point of Care [address] [place] [address] BEDSIDE GLUCOSE Collected: 08/04/2018 Status: F Source: [place] 11:48 AM [facility] [place] TYPE CODE TESTS RESULT OUT OF REFERENCE UNITS RANGE LAB L501.080 70-110 mg/dL High BEDSIDE GLU 166 Result Comment: MANAGEMENT OF PATIENT CARE PER NURSING PROTOCOL Performed By: #### L501.080 #### [facility] Point of Care [address] [place] [address] DISCHARGE INSTRUCTION Observed: 08/04/2018 Status: F Source: [place] 10:47 AM [facility] [place] [facility] Medical Records Department [address] [place] [address] Instructions for Home/Discharge Instructions 08/04/18 1045 MR#: [id number] Acct: [id number] Name: PANDA FLOYD Rep #: [id number] : 1940 78 From: Dennis Page PA-C [...] on August 08, 2018 Additional Instructions: Follow [facility] postop instructions Allergies/Adverse Reactions: Allergies No [...] 08/04/2018 Status: F Source: [place] 7:52 AM [facility] [place] TYPE CODE TESTS RESULT OUT OF RANGE REFERENCE UNITS LAB L300.4150 11.7-14.9 SECONDS High PROTIME 15.8 LAB L300.4200 Normal INR 1.3 Performed By: #### L300.3900 #### [facility] [address] [place], [id number] SHOULDER MIN 2 VIEWS Observed: 08/04/2018 Status: F Source: [place] 6:53 AM [facility] [place] [facility] Imaging Services [address] [place] [address] Shoulder min 2 Views MR#: [id number] Acct: [id number] Name: PANDA FLOYD Rep #: [id number] : 1940 M 78 From: Dong Multani MD PCP: Man Cha MD Status: ADM IN Study: Shoulder min 2 Views Date of Exam: 08/04/18 Exam# [id number] Ordering Dr: Vick Faulkner MD STUDY: X-RAY [...] Dong Multani MD at 10:46 EST Tel [phone], Service support , CC: Man Cha MD; Vick Faulkner MD Assisted Living Nursing Director: Signed BEDSIDE GLUCOSE Collected: 08/04/2018 Status: F Source: [place] 6:44 AM [facility] [place] TYPE CODE TESTS RESULT OUT OF REFERENCE UNITS RANGE LAB L501.080 70-110 mg/dL High BEDSIDE GLU 140 Result Comment: MANAGEMENT OF PATIENT CARE PER NURSING PROTOCOL Performed By: #### L501.080 #### [facility] Point of Care [address] [place], [place] [address] BEDSIDE GLUCOSE Collected: 08/03/2018 Status: F Source: [place] 10:12 PM [facility] [place] TYPE CODE TESTS RESULT OUT OF REFERENCE UNITS RANGE LAB L501.080 70-110 mg/dL High BEDSIDE GLU 118 Result Comment: MANAGEMENT OF PATIENT CARE PER NURSING PROTOCOL Performed By: #### L501.080 #### [facility] Point of Care [address] [place], [place] [address] BEDSIDE GLUCOSE Collected: 08/03/2018 Status: F Source: [place] 4:25 PM [facility] [place] TYPE CODE TESTS RESULT OUT OF REFERENCE UNITS RANGE LAB L501.080 70-110 mg/dL High BEDSIDE GLU 169 Result Comment: MANAGEMENT OF PATIENT CARE PER NURSING PROTOCOL Performed By: #### L501.080 #### [facility] Point of Care [address] [place], [place] [address] BEDSIDE GLUCOSE Collected: 08/03/2018 Status: F Source: [place] 11:54 AM [facility] [place] TYPE CODE TESTS RESULT OUT OF REFERENCE UNITS RANGE LAB L501.080 70-110 mg/dL High BEDSIDE GLU 180 Result Comment: MANAGEMENT OF PATIENT CARE PER NURSING PROTOCOL Performed By: #### L501.080 #### [facility] Point of Care [address] [place], [place] [address] BEDSIDE GLUCOSE Collected: 08/03/2018 Status: F Source: [place] 10:09 AM [facility] [place] TYPE CODE TESTS RESULT OUT OF REFERENCE UNITS RANGE LAB L501.080 70-110 mg/dL High BEDSIDE GLU 196 Result Comment: MANAGEMENT OF PATIENT CARE PER NURSING PROTOCOL Performed By: #### L501.080 #### [facility] Point of Care [address] [place], [place] [address] OPERATIVE REPORT Observed: 08/03/2018 Status: F Source: [place] 8:46 AM [facility] Medical Records Department [address] [place] [address] Operative Report 08/03/18 0841 MR#: [id number] Acct: [id number] Name: PANDA FLOYD Rep #: [id number] : 1940 78 From: Vick Faulkner MD PCP: Man Cha MD Status: ADM IN Y Location: MS3 AN030-5 Report of Operation Date of Procedure: 08/03/18 Pre-Operative Diagnosis: Left shoulder cuff tear arthropathy Post-Operative Diagnosis: Left shoulder cuff tear arthropathy Surgery/Procedure Performed:: Left reverse total shoulder replacement Description of Surgical Findings:: Stable shoulder plant safety leader: Renata Salamanca Type of Anesthesia:: General Anesthesiologist: [...] rotated and the shoulder was dislocated. The FanDuel humeral head cutting guide was used to [...] 08/03/2018 Status: F Source: [place] 7:12 AM [facility] [place] [facility] Imaging Services [address] [place] [address] Shoulder One View MR#: [id number] Acct: [id number] Name: PANDA FLOYD Rep #: [id number] : 1940 M 78 From: Dong Multani MD PCP: Man Cha MD Status: ADM IN Study: Shoulder One View Date of Exam: 08/03/18 Exam# [id number] Ordering Dr: Vick Faulkner MD STUDY: X-RAY [...] Dong Multani MD at 12:18 EST Tel [phone], Service support , CC: Man Cha MD; Vick Faulkner MD Assisted Living Nursing Director: Signed PROTIME W/INR Collected: 08/03/2018 Status: F Source: [place] FINGER[place] 5:58 AM [facility] [place] TYPE CODE TESTS RESULT OUT OF RANGE REFERENCE UNITS LAB L9200.1001 11.9-14.4 SEC Normal PROTIME ISTAT 14.0 Result Comment: Reference Range 11.9 - 14.4 LAB L9200.2000 Normal INR ISTAT 1.20 Result Comment: Critical Value > 3.5 Performed By: #### L9200.0000 #### [facility] Point of Care [address] [place], [place] [address] BEDSIDE GLUCOSE Collected: 08/03/2018 Status: F Source: [place] 5:56 AM [facility] [place] TYPE CODE TESTS RESULT OUT OF REFERENCE UNITS RANGE LAB L501.080 70-110 mg/dL High BEDSIDE GLU 146 Result Comment: MANAGEMENT OF PATIENT CARE PER NURSING PROTOCOL Performed By: #### L501.080 #### [facility] Point of Care [address] [place] [address] ALBUMIN, SERUM Collected: 07/27/2018 Status: F Source: [place] 12:13 PM [facility] [place] TYPE CODE TESTS RESULT OUT OF RANGE REFERENCE UNITS LAB L501.1800 3.2-5.0 g/dL Normal ALB 3.4 Performed By: #### L501.1800 #### [facility] [address] [place], [address] HISTORY AND PHYSICAL Observed: 07/22/2018 Status: F Source: [place] EXAM 10:54 PM [facility] [place] [facility] Medical Records Department [address] [place] [id number] History and Physical 07/22/18 2253 MR#: [id number] Acct: [id number] Name: PANDA FLOYD Rep #: [id number] : 1940 78 From: Dennis Page PA-C PCP: Man Cha MD Status: PRE IN Y Location: [facility] History and Physical DATE OF SURGERY: 08/03/2018 [...] has been treated and seen by his hardboard factory worker Dr. Chin. We have obtain surgical clearance from the hardboard factory worker and able to stop the Coumadin 3-5 [...] 07/22/2018 Status: F Source: [place] 3:50 PM [facility] [place] TYPE CODE TESTS RESULT OUT OF [...] Lymph 1.33 Performed By: #### L100.0100 #### [facility] [address] [place], [place], [address] BASIC METABOLIC Collected: 07/22/2018 Status: F Source: [place] PROFILE (BMP) 3:50 PM [facility] [place] TYPE CODE TESTS RESULT OUT OF [...] GAP 9 Performed By: #### L500.2500 #### [facility] [address] [facility] [place], [address] HEMOGLOBIN A1C Collected: 07/22/2018 Status: F Source: [place] 3:50 PM [facility] [place] TYPE CODE TESTS RESULT OUT OF RANGE REFERENCE UNITS LAB L501.9985 4.2-6.3 % High HGB A1C 7.0 Performed By: #### L501.9985 #### [facility] [address] [place], [address] Observed: 07/22/2018 Status: F Source: [place] MRSA/SAID SCREEN 3:50 PM [facility] [place] MRSA/SAID SCRN S. AUREUS S. aureus Negative MRSA MRSA Negative Performed By: #### M100.651 #### [facility] [address] [place], [address] PROGRESS Observed: 07/12/2018 Status: COMPLETED Source: [place] 2:06 PM [facility] REPOSITORY HNO ID: [id number] Author: Juan Chin Service: (none) Author Type: Physician Type: Progress Notes Filed: 07/12/2018 3:28 PM Note Text: PERTINENT CARDIAC HISTORY Abnormal EKG Hypertension Hyperlipidemia Diabetes PAF - C-V >2 ADHERENCE TO GUIDELINES ANAMARIA-I or ARB for HF with prior LVEF<40 (NQF 0081) - CRF ASA or Plavix for ASHD (NQF 0067) - N/A Beta armando for ASHD with prior ID or prior LVEF<40 (NQF 0070) - N/A [...] MD CNOV Observed: 07/12/2018 Status: COMPLETED Source: [place] 1:30 PM [facility] REPOSITORY Office Visit (CAWSTR) PANDA FLOYD ([id number]) 1940 M Date Time Provider Department 07/12/18 [...] N/A Beta armando for ASHD with prior ID or prior LVEF<40 (NQF 0070) - N/A [...] Man Cha MD Referring Provider: JUAN CHIN [[id number]] Allergies As of Date: 07/12/2018 (No Known [...] [M25.*INVALID FOR*05/07/2011 Special Screening for Malignant Neoplasms, Kosse*INVALID FOR*10/11/2009 POLYP COLON [D12.6] INVALID FOR*10/11/2009 NEURALGIA/NEURITIS NOS [[id number]] INVALID FOR* OBESITY NOS [E66.9] INVALID FOR* [...] EXTREMITY UPPER Observed: 06/21/2018 Status: F Source: [place] WITHOUT CONTRA 12:47 PM [facility] [place] [facility] Imaging Services [address] [place] [address] Extremity Upper without Contra MR#: [id number] Acct: [id number] Name: PANDA FLOYD Rep #: [id number] : 1940 M 77 From: Maxim Espinoza MD PCP: Man Cha MD Status: REG CLI Study: Extremity Upper without Contra Date of Exam: 06/21/18 Exam# [id number] Ordering Dr: Vick Faulkner MD STUDY: CT [...] CC: Man Cha MD; Vick Faulkner MD Assisted Living Nursing Director: Signed PROGRESS Observed: 05/12/2018 Status: COMPLETED Source: [place] 11:47 AM [facility] REPOSITORY HNO ID: [id number] Author: Juan Chin Service: (none) Author Type: Physician Type: Progress Notes Filed: 05/12/2018 4:33 PM Note Text: PERTINENT CARDIAC HISTORY Abnormal EKG Hypertension Hyperlipidemia Diabetes PAF - C-V >2 ADHERENCE TO GUIDELINES ANAMARIA-I or ARB for HF with prior LVEF<40 (NQF 0081) - CRF ASA or Plavix for ASHD (NQF 0067) - N/A Beta armando for ASHD with prior ID or prior LVEF<40 (NQF 0070) - N/A [...] MD CNOV Observed: 05/12/2018 Status: COMPLETED Source: [place] 11:15 AM [facility] REPOSITORY Office Visit (CAWSTR) PANDA FLOYD ([id number]) 1940 M Date Time Provider Department 05/12/18 [...] N/A Beta armando for ASHD with prior ID or prior LVEF<40 (NQF 0070) - N/A [...] following areas and commit to making intermediate changes. EAT A WHOLE FOOD, PLANT BASED [...] in your area. Referring Provider: JUAN CHIN [[id number]] Allergies As of Date: 05/12/2018 (No Known [...] [M25.*INVALID FOR*05/07/2011 Special Screening for Malignant Neoplasms, Kosse*INVALID FOR*10/11/2009 POLYP COLON [D12.6] INVALID FOR*10/11/2009 NEURALGIA/NEURITIS NOS [[id number]] INVALID FOR* OBESITY NOS [E66.9] INVALID FOR* [...] the following areas and commit to making buttermaker helper changes. EAT A WHOLE FOOD, PLANT BASED [...] 05/12/18 EKG1 Observed: 03/31/2018 Status: C Source: [place] 10:46 AM [facility] REPOSITORY NAME : PANDA FLOYD PID : [id number] : 1940 Gender : Male Race : [...] Also confirmed by JUAN CHIN MD ([id number]), editorial specialist HERMILO BAL ([id number]) on 04/04/2018 12:11:57 PM Ventricular Rate : 83 BPM Atrial Rate : 83 BPM P-R Interval : 200 ms QRS Duration : 86 ms Q-T Interval : 426 ms QTC Calculation(Bezet) : 500 ms P Keene : 81 degrees R Keene : 14 degrees T Keene : 32 degrees Test Reason : Location : 136 : [facility] Overread By : JUAN CHIN MD Edited By : HERMILO BAL Referred By : JUAN CHIN Acquired by : MAICOL SAMS Observed: 03/31/2018 Status: COMPLETED Source: [place] 10:00 AM [facility] REPOSITORY Nurse Visit (CAWSTR) PANDA FLOYD ([id number]) 1940 M Date Time Provider Department 03/31/18 10:00 AM [facility] CAWSTR During your visit today, we recorded the following information about you: Referring Provider: JUAN CHIN [[id number]] Allergies As of Date: 03/31/2018 (No Known [...] [M25.*INVALID FOR*05/07/2011 Special Screening for Malignant Neoplasms, Kosse*INVALID FOR*10/11/2009 POLYP COLON [D12.6] INVALID FOR*10/11/2009 NEURALGIA/NEURITIS NOS [[id number]] INVALID FOR* OBESITY NOS [E66.9] INVALID FOR* [...] OPERATIVE REPORT Observed: 03/22/2018 Status: F Source: [place] 1:53 PM [facility] [place] [facility] Medical Records Department [address] [place] [address] [place] [address] Operative Report 03/22/18 1350 MR#: [id number] Acct: [id number] Name: PANDA FLOYD Rep #: [id number] : 1940 77 From: Jp Sanabria MD PCP: Man Cha MD Status: REG [facility] Y Location: [facility] Problem List (1) Atrial fibrillation Status: Acute [...] apparent complications This note was generated with HangItation software. It may contain incorrect words, spelling, and punctuation that were not noted in checking the note before signing. 03/22/18 1353 <Electronically signed by Jp Sanabria MD> Date Jp Sanabria MD CC: Juan Chin MD; Jp Sanabria MD; Man Cha MD Signed OPERATIVE REPORT Observed: 03/22/2018 Status: F Source: [place] 1:08 PM [facility] [place] [facility] Medical Records Department [address] [place] [address] Operative Report 03/22/18 1304 MR#: [id number] Acct: [id number] Name: PANDA FLOYD Rep #: [id number] : 1940 77 From: Anish Dalton DO PCP: Man Cha MD Status: REG SDC Y Location: [facility] Operative Report Date of Procedure: 03/22/18 CONSCIOUS SEDATION REPORT DATE OF SERVICE: March 22, 2018 BRIEF HISTORY OF PRESENT ILLNESS: The patient is a 77-year-old male who presented to [facility] for elective outpatient cardioversion due to [...] Visit 9xxxx: Other Procedure See Report - [id number] 03/22/18 1308 <Electronically signed by Anish Dalton DO> Date Anish Dalton DO CC: Anish Dalton D.O.; Jp Sanabria MD; Man Cha MD Signed PROTIME W/INR Collected: 03/22/2018 Status: F [facility] AM [facility] [place] TYPE CODE TESTS RESULT OUT OF REFERENCE UNITS RANGE LAB L9200.1001 11.9-14.4 SEC High PROTIME ISTAT 23.7 Result Comment: Reference Range 11.9 - 14.4 LAB L9200.2000 Normal INR ISTAT 2.00 Result Comment: Critical Value > 3.5 Performed By: #### L9200.0000 #### [facility] Point of Care [address] [place] [address] CNNURSE Observed: 03/16/2018 Status: COMPLETED Source: [place] 3:30 PM [facility] REPOSITORY Nurse Visit (CAWSTR) PANDA FLOYD ([id number]) 1940 M Date Time Provider Department 03/16/18 3:30 PM NUR[facility] CAWSTR During your visit today, we recorded the following information about you: Stacey Duarte MA 04/08/2018 1:21 PM Signed EKG completed and given to Dr Chin for review. Stacey Duarte MA Referring Provider: JUAN CHIN [[id number]] Allergies As of Date: 03/16/2018 (No Known Allergies) Date Reviewed: 03/16/2018 Reviewed by: Marilu Burdick Ma - Fully Assessed Reason for Visit: Allied Health Visit [5] Visit Diagnosis:PAF (paroxysmal atrial fibrillation) (HCC) [I48.0] Order(s):ECG COMPLETE W INTERPRETATION [ECG01] Order #: [id number] Prescriptions as of 03/16/2018 Sig: WARFARIN 3 [...] [M25.*INVALID FOR*05/07/2011 Special Screening for Malignant Neoplasms, Kosse*INVALID FOR*10/11/2009 POLYP COLON [D12.6] INVALID FOR*10/11/2009 NEURALGIA/NEURITIS NOS [[id number]] INVALID FOR* OBESITY NOS [E66.9] INVALID FOR* [...] 04/08/18 PROTIME Collected: 03/16/2018 Status: F Source: [place] 2:14 PM [facility] REPOSITORY TYPE CODE TESTS RESULT OUT OF RANGE REFERENCE UNITS LAB PSEC 9.7-13.0 sec High PT Sec 20.6 LAB INR 0.9-1.3 High PT INR 2.1 Result Comment: Vitamin K Antagonist (VKA) Therapeutic Range: INR 2 to 3 (Target INR of 2.5) Note: For patients treated with VKA drugs, such as warfarin, the [place] [employer]icians 2012 Guideline recommends [...] Chest 2012, 141:7S-47S Devaughn ROGEL et al. [facility] 2017, 70: 252-289 Performed By: #### PT, CBC, BMP, MG1 #### [facility] [address] [place], [place] [address] CBC Collected: 03/16/2018 Status: F Source: [place] 2:14 PM [facility] REPOSITORY TYPE CODE TESTS RESULT OUT OF [...] By: #### PT, CBC, BMP, MG1 #### [facility] [address] [place], [place] [address] BASIC METABOLIC PANL Collected: 03/16/2018 Status: F Source: [place] 2:14 PM [facility] REPOSITORY TYPE CODE TESTS RESULT OUT OF REFERENCE UNITS RANGE LAB GLU 74-99 mg/dL High Glucose 140 Result Comment: The [place] Diabetes Association (ADA) provides guidance for cutoff [...] Standards of Medical Care in Diabetes 2016, [place] [employer] Association. Diabetes Care. 2016.39(Suppl 1). LAB [...] By: #### PT, CBC, BMP, MG1 #### [facility] [address] [place], [place] [address] MAGNESIUM Collected: 03/16/2018 Status: F Source: [place] 2:14 PM [facility] REPOSITORY TYPE CODE TESTS RESULT OUT OF REFERENCE UNITS RANGE LAB MG 1.7-2.3 mg/dL Magnesium 1.8 Performed By: #### PT, CBC, BMP, MG1 #### [facility] [address] [place], [place] [address] EKG1 Observed: 03/16/2018 Status: F Source: [place] 1:49 PM [facility] REPOSITORY NAME : FOZIAPANDA PID : [id number] : 1940 Gender : Male Race : [...] ms QTC Calculation(Bezet) : 441 ms R Keene : 34 degrees T Keene : -13 degrees Test Reason : Location : 136 : [facility] Overread By : JUAN CHIN MD Edited By : JUAN CHIN MD Referred By : Enzo CHIN Acquired by : JOI EKG1 Observed: 03/16/2018 Status: F Source: [place] 1:48 PM [facility] REPOSITORY NAME : PANDA FLOYD PID : [id number] : 1940 Gender : Male Race : [...] ms QTC Calculation(Bezet) : 471 ms R Keene : 30 degrees T Keene : -8 degrees Test Reason : Location : 136 : [facility] Overread By : JUAN CHIN MD Edited By : JUAN CHIN MD Referred By : Enzo CHIN Acquired by : JOI, PROGRESS Observed: 03/16/2018 Status: COMPLETED Source: [place] 1:42 PM [facility] REPOSITORY HNO ID: [id number] Author: Juan Chin Service: (none) Author Type: Physician Type: Progress Notes Filed: 03/16/2018 5:13 PM Note Text: PERTINENT CARDIAC HISTORY Abnormal EKG Hypertension Hyperlipidemia Diabetes PAF ADHERENCE TO GUIDELINES ANAMARIA-I or ARB for HF with prior LVEF<40 (NQF 0081) - CRF ASA or Plavix for ASHD (NQF 0067) - N/A Beta armando for ASHD with prior ID or prior LVEF<40 (NQF 0070) - N/A [...] sinus rhythm. He will be referred to [facility] for cardioversion. He has declined [...] MD CNOV Observed: 03/16/2018 Status: COMPLETED Source: [place] 1:15 PM [facility] REPOSITORY Office Visit (CAWSTR) PANDA FLOYD ([id number]) 1940 M Date Time Provider Department 03/16/18 [...] N/A Beta armando for ASHD with prior ID or prior LVEF<40 (NQF 0070) - N/A [...] sinus rhythm. He will be referred to [facility] for cardioversion. He has declined [...] the following areas and commit to making buttermaker helper changes. EAT A WHOLE FOOD, PLANT BASED [...] about programs in your area. Referring Provider: UJAN CHIN [[id number]] Allergies As of Date: 03/16/2018 (No Known Allergies) Date Reviewed: 03/16/2018 Reviewed by: Marilu Burdick Ma - Fully Assessed Reason for Visit: Established Patient [175] Cmt: 1 month follow up AF/Hypertension Primary Visit Diagnosis:PAF (paroxysmal atrial fibrillation) (HCC) [I48.0] Order(s):CBC [SQCBC] Order #: [id number] FUTURE MAGNESIUM BLD [SQMG1] Order #: [id number] FUTURE BASIC METABOLIC PNL [SQBMP] Order #: [id number] FUTURE PROTHROMBIN TIME/PT [SQPT] Order #: [id number] FUTURE ECG COMPLETE W INTERPRETATION [ECG01] Order #: [id number] FUTURE Prescriptions as of 03/16/2018 Sig: WARFARIN [...] [M25.*INVALID FOR*05/07/2011 Special Screening for Malignant Neoplasms, Kosse*INVALID FOR*10/11/2009 POLYP COLON [D12.6] INVALID FOR*10/11/2009 NEURALGIA/NEURITIS NOS [ZSQ8396] INVALID FOR* OBESITY NOS [E66.9] INVALID FOR* [...] following areas and commit to making intermediate changes. EAT A WHOLE FOOD, PLANT BASED [...] 03/16/18 PROGRESS Observed: 02/10/2018 Status: COMPLETED Source: [place] 8:57 AM [facility] REPOSITORY HNO ID: [id number] Author: Juan Chin Service: (none) Author Type: Physician Type: Progress Notes Filed: 02/10/2018 11:03 AM Note Text: PERTINENT CARDIAC HISTORY Abnormal EKG Hypertension Hyperlipidemia Diabetes PAF ADHERENCE TO GUIDELINES ANAMARIA-I or ARB for HF with prior LVEF<40 (NQF 0081) - CRF ASA or Plavix for ASHD (NQF 0067) - N/A Beta armando for ASHD with prior ID or prior LVEF<40 (NQF 0070) - N/A [...] MD CNOV Observed: 02/10/2018 Status: COMPLETED Source: [place] 8:30 AM [facility] REPOSITORY Office Visit (CAWSTR) PANDA FLOYD ([id number]) 1940 M Date Time Provider Department 02/10/18 [...] N/A Beta armando for ASHD with prior ID or prior LVEF<40 (NQF 0070) - N/A [...] Man Cha MD Referring Provider: JUAN CHIN [[id number]] Allergies As of Date: 02/10/2018 (No Known Allergies) Date Reviewed: 02/10/2018 Reviewed by: Alfonso Elliott RN - Fully Assessed Reason for Visit: Recheck [92] Primary Visit Diagnosis:Hypertension, essential [I10] Other Visit Diagnosis:PAF (paroxysmal atrial fibrillation) ([facility] [facility]) [I48.0] Order(s):furosemide (LASIX) 20 mg tabletTake 1 tablet by mouth once daily. As neededDisp: Rfl: ECG COMPLETE W INTERPRETATION [ECG01] Order #: [id number] FUTURE Prescriptions as of 02/10/2018 Sig: WARFARIN [...] [M25.*INVALID FOR*05/07/2011 Special Screening for Malignant Neoplasms, Kosse*INVALID FOR*10/11/2009 POLYP COLON [D12.6] INVALID FOR*10/11/2009 NEURALGIA/NEURITIS NOS [RJO8199] INVALID FOR* OBESITY NOS [E66.9] INVALID FOR* [...] BLOOD DIAG. Collected: 01/18/2018 Status: F Source: [place] 9:59 AM [facility] REPOSITORY TYPE CODE TESTS RESULT OUT OF REFERENCE UNITS RANGE LAB OBSRCE Occult Stool Blood Source: LAB OBD Occult Negative Blood Diag. Performed By: #### OBDX #### [facility] [address] [place], [place] [address] CBC Collected: 01/07/2018 Status: F Source: [place] 3:24 PM [facility] REPOSITORY TYPE CODE TESTS RESULT OUT OF [...] Performed By: #### CBC, PT, BMP #### [facility] [address] [place], [place] [address] PROTIME Collected: 01/07/2018 Status: F Source: [place] 3:24 PM [facility] REPOSITORY TYPE CODE TESTS RESULT OUT OF RANGE REFERENCE UNITS LAB PSEC 9.7-13.0 sec PT Sec 10.9 LAB INR 0.9-1.3 PT INR 1.1 Result Comment: Vitamin K Antagonist (VKA) Therapeutic Range: INR 2 to 3 (Target INR of 2.5) Note: For patients treated with VKA drugs, such as warfarin, the [place] [employer]icians 2012 Guideline recommends [...] Chest 2012, 141:7S-47S Devaughn RA, et al. [facility] 2017, 70: 252-289 Performed By: #### CBC, PT, BMP #### [facility] [address] [place], [place] [address] BASIC METABOLIC PANL Collected: 01/07/2018 Status: F Source: [place] 3:24 PM [facility] [place] REPOSITORY TYPE CODE TESTS RESULT OUT OF REFERENCE UNITS RANGE LAB GLU 74-99 mg/dL High Glucose 145 Result Comment: The [place] Diabetes Association (ADA) provides guidance for cutoff [...] Standards of Medical Care in Diabetes 2016, [place] [employer] Association. Diabetes Care. 2016.39(Suppl 1). LAB [...] Performed By: #### CBC, PT, BMP #### [facility] [address] [place] [id number] PROGRESS Observed: 01/07/2018 Status: COMPLETED Source: [place] 2:52 PM [facility] OTHER CAMPUS REPOSITORY HNO ID: [id number] Author: Juan Chin Service: (none) Author Type: Physician Type: Progress Notes Filed: 01/07/2018 5:48 PM Note Text: PERTINENT CARDIAC HISTORY Abnormal EKG Hypertension Hyperlipidemia Diabetes PAF ADHERENCE TO GUIDELINES ANAMARIA-I or ARB for HF with prior LVEF<40 (NQF 0081) - N/A ASA or Plavix for ASHD (NQF 0067) - N/A Beta armando for ASHD with prior ID or prior LVEF<40 (NQF 0070) - N/A [...] TUNNEL bilateral - COLONOSCOP W/ OR W/O RUST SPEC 4/13/12 repeat 5 years - COLONOSCOPY [...] file. CNOV Observed: 01/07/2018 Status: COMPLETED Source: [place] 2:00 PM [facility] REPOSITORY Office Visit (AGCARDWST) PANDA FLOYD ([id number]) 1940 M Date Time Provider Department 01/07/18 [...] N/A Beta armando for ASHD with prior ID or prior LVEF<40 (NQF 0070) - N/A [...] TUNNEL bilateral - COLONOSCOP W/ OR W/O RUST SPEC 12/04/11 repeat 5 years - COLONOSCOPY [...] the following areas and commit to making buttermaker helper changes. EAT A WHOLE FOOD, PLANT BASED [...] management.Philly Antunez LPN Referring Provider: JUAN CHIN [[id number]] Allergies As of Date: 01/07/2018 (No Known Allergies) Date Reviewed: 01/07/2018 Reviewed by: Rocael (Rn) Rosalind - Fully Assessed Reason for Visit: New Patient [172] Cmt: new onset a-fib - former [facility] patient Primary Visit Diagnosis:PAF (paroxysmal atrial fibrillation) (HCC) [I48.0] Other Visit Diagnoses:Essential hypertension [I10] Anemia due to chronic blood loss [D50.0] Order(s):CBC [SQCBC] Order #: [id number] FUTURE PROTHROMBIN TIME/PT [SQPT] Order #: [id number] FUTURE OCCULT BLD EXAM-DIAG [SQOB] Order #: [id number] FUTURE BASIC METABOLIC PNL [SQBMP] Order #: [id number] FUTURE warfarin (COUMADIN) 5 mg tabletTake 1 [...] [M25.*INVALID FOR*05/07/2011 Special Screening for Malignant Neoplasms, Kosse*INVALID FOR*10/11/2009 POLYP COLON [D12.6] INVALID FOR*10/11/2009 NEURALGIA/NEURITIS NOS [KAQ9246] INVALID FOR* OBESITY NOS [E66.9] INVALID FOR* [...] the following areas and commit to making buttermaker helper changes. EAT A WHOLE FOOD, PLANT BASED [...] ECHOCARDIOGRAM COMPLETE Observed: 12/24/2017 Status: F Source: [place] 2:39 PM [facility] [address] [place] [address] Echo Complete 12/24/17 1303 MR#: [id number] Acct: [id number] Name: PANDA FLOYD Rep #: [id number] : 1940 77 From: Jp Sanabria MD Attending Dr: Man Cha Status: REG CLI Ordering Dr: Man Cha MD Date: 12/24/17 Location: [facility] Sex: M C Admitted: Reason For Study: [...] Dictated: 12/24/17 1303 Date Transcribed: 12/24/17 1439 Assisted Living Nursing Director: Signed COMPREHENSIVE METABOLIC Collected: 11/30/2017 Status: F Source: [place] 1:49 PM [facility] REPOS[place] TYPE CODE TESTS RESULT OUT OF [...] By: #### L500.4050, L501.5200, L501.9520, L506.0400 #### [facility] [address] [facility] [place], [place], [address] MAGNESIUM Collected: 11/30/2017 Status: F Source: [place] 1:49 PM [facility] REPOSITORY TYPE CODE TESTS RESULT OUT OF RANGE REFERENCE UNITS LAB L501.5200 1.6-2.6 mg/dL Normal MG 1.9 Result Comment: Please note revised Magnesium reference range effective 2017. Performed By: #### L500.4050, L501.5200, L501.9520, L506.0400 #### [facility] [address] [place] [place], [address] THYROID STIM HORMONE Collected: 11/30/2017 Status: F Source: [place] (TSH) 1:49 PM [facility] REPOS[place] TYPE CODE TESTS RESULT OUT OF RANGE REFERENCE UNITS LAB L501.9520 0.358-3.74 uIU/mL Normal TSH 3.48 Performed By: #### L500.4050, L501.5200, L501.9520, L506.0400 #### [facility] [address] [facility] [place], [address] T4 FREE DIRECT Collected: 11/30/2017 Status: F Source: [place] 1:49 PM [facility] REPOSITORY TYPE CODE TESTS RESULT OUT OF RANGE REFERENCE UNITS LAB L506.0400 0.76-1.46 ng/dL Normal T4 FREE 1.08 DIRECT Performed By: #### L500.4050, L501.5200, L501.9520, L506.0400 #### [facility] [address] [facility] 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 Will remove Dr. Cheney as PCP. Ivory Love MA PROGRESS Observed: 11/23/2017 Status: COMPLETED Source: [place] 12:06 PM [facility] REPOSITORY HNO ID: [id number] Author: Giancarlo Hayden Service: (none) Author Type: Nurse Practitioner Type: Progress Notes Filed: 11/29/2017 9:09 AM Note Text: Labs filed. Giancarlo Hayden APRN.CNP PROGRESS Observed: 11/23/2017 Status: COMPLETED Source: [place] 10:28 AM [facility] REPOSITORY HNO ID: [id number] Author: Ivory Love Service: (none) Author Type: Coring Machine Operator Type: Progress Notes Filed: 11/29/2017 9:09 AM Note Text: PHMA TEAMLET DOCUMENTATION Provider Action/FYI: Patient needs appointment, needs labs ordered, needs Foot and Eye exam. IFOBT CMP lipids PSR Action/FYI: Teamlet has identified patient by name and date of . Team: Samantha Ferraro MA, Ave Sanon MA, Ivory Love MA, VANESSA Barragan, Dr. Natahn Cheney, Kendra Parkinson PSR, ? Last Office [...] MA CNPTOUTREACH Observed: 11/23/2017 Status: COMPLETED Source: [place] 12:00 AM [facility] REPOSITORY Patient Outreach (FAMPWS) PANDA FLOYD ([id number]) 1940 M Date Time Provider Department 11/23/17 [...] 9:09 AM Signed Labs filed. Giancarlo Hayden APRN.INTERN ARCHITECT Ivory Love MA 11/29/2017 9:09 AM Signed [...] [Z12.11] Order(s):COMP METABOLIC PANEL [SQCMP] Order #: [id number] FUTURE LIPID PANEL BASIC [SQLIPB] Order #: [id number] FUTURE HGB A1C [LXMFV6J] Order #: [id number] FUTURE FECAL OCCULT BLOOD TEST [SQIFOBT] Order #: [id number] FUTURE ALBUMIN RANDOM URINE [SQUALBR] Order #: [id number] FUTURE Prescriptions as of 11/23/2017 Sig: METFORMIN [...] [M25.*INVALID FOR*05/07/2011 Special Screening for Malignant Neoplasms, Kosse*INVALID FOR*10/11/2009 POLYP COLON [D12.6] INVALID FOR*10/11/2009 NEURALGIA/NEURITIS NOS [LHN7319] INVALID FOR* OBESITY NOS [E66.9] INVALID FOR* [...] Status: F Source: [place] 2:56 PM [facility] REPOSIT[place] TYPE CODE TESTS RESULT OUT OF RANGE REFERENCE UNITS LAB L503.6620 0-100 pg/mL High B-TYPE 116.3 PILAR PEP Performed By: #### L503.6620 #### [facility] [address] [place], [address] BASIC METABOLIC Collected: 09/21/2017 Status: F Source: [place] PRO[place] (BMP) 2:56 PM [facility] REPOSITORY TYPE CODE TESTS RESULT OUT OF [...] 8 Performed By: #### L500.2500, L501.9520 #### [facility] [address] [place], [place], [address] THYROID STIM HORMONE Collected: 09/21/2017 Status: F Source: [place] (TSH) 2:56 PM [facility] REPOSITORY TYPE CODE TESTS RESULT OUT OF RANGE REFERENCE UNITS LAB L501.9520 0.358-3.74 uIU/mL Normal TSH 2.13 Performed By: #### L500.2500, L501.9520 #### [facility] [address] [place], [place], [address] ALLERGIES ALLERGIES DATE TYPE / CODE NAME / CODE REACTION SEVERITY SOURCE 09/10/2018 Drug No Known Unknown [facility] Allergy/416 Allergies/B05563 [facility] 487269(SNOM 0388(RXNORM) Repository ED CT) Drug NO KNOWN [facility] Class/84333 ALLERGIES Main [place] 1003(SNOMED Repository CT) NG/62435032 NO KNOWN [facility] 6(SNOMED ALLERGIES Health [facility] CT) Repository ENCOUNTERS ENCOUNTERS ADMIT/DISCHARGE ACCOUNT NUMBER ADMITTING ENCOUNTER LOCATION SOURCE CLASS 09/13/2018 [id number] [facility] ding:CT Repository 09/10/2018/09/10/19 [id number] Emergency [address] ding:ED Repository 08/08/2018 [id number] Ambulatory BMSBuilding: [facility] Repository 08/06/2018/08/09/20 [id number] Nima Gamez Chi Inpatient [address] ding:TCURoom Repository : FXM75Ylc: 1 08/03/2018 [id number] Kaushik, Ambulatory BMSBuilding: [place] BMS.[facility] Repository 08/03/2018 [id number] Kaushik, Ambulatory BMSBuilding: [place] BMS.[facility] Repository 08/03/2018 [id number] Kaushik, Ambulatory BMSBuilding: [place] BMS.[facility] Repository 08/03/2018 [id number] Kaushik, Ambulatory BMSBuilding: [place] BMS.[facility] Repository 08/03/2018/08/06/20 [id number] Kaushik, Inpatient [address] ding:QM6Rjfa Repository : GL444Exm: 1 07/27/2018 [id number] [facility] ding:LAB.FUT Repository URE 07/22/2018 [id number] Ambulatory BMSBuilding: [facility] Repository 07/12/2018/07/13/20 [id number] Ambulatory [address] Repository 06/21/2018 [id number] [facility] ding:CT Repository 05/12/2018/05/13/20 [id number] Ambulatory [address] Repository 03/31/2018/03/31/20 [id number] Ambulatory [address] Repository 03/22/2018 [id number] Ambulatory BMSBuilding: [place] [facility] Repository 03/22/2018 [id number] Ambulatory BMSBuilding: [facility] Repository 03/22/2018 [id number] Ambulatory BMSBuilding: [place] BMS.CF[facility] Repository 03/22/2018 [id number] [facility] 03/16/2018/03/17/20 [id number] Ambulatory [address] [place] Repository 03/16/2018/03/16/20 [id number] Ambulatory [address] [place] Repository 03/16/2018/03/16/20 [id number] Ambulatory [address] [place] Repository 02/10/2018/02/11/20 [id number] Ambulatory [address] [place] Repository 02/10/2018 [id number] Ambulatory [facility] MEDICAL Repository CENTERBuildi ng:CAGWS 01/18/2018/01/19/20 [id number] Ambulatory [address] [facility] [place] Repository 01/07/2018/01/08/20 [id number] Ambulatory [address] Repository 01/07/2018/01/08/20 [id number] Ambulatory [address] Other [place] Repository 01/07/2018/01/08/20 [id number] Ambulatory [address] MEDICAL Repository CENTERBuildi ng:CAGWS 12/24/2017 [id number] [facility] ding:[facility] Repository 12/24/2017 [id number] Ambulatory BMSBuilding: [facility] Repository 11/30/2017 [id number] [facility] ding:BFAB Repository 10/07/2017 [id number] [facility] ding:[facility] Repository 10/07/2017 [id number] Ambulatory BMSBuilding: [facility] Repository 09/21/2017 [id number] [facility] ding:BFHLAB Repository PAYERS PAYERS ENCOUNTER GUARANTOR PAYER SUBSCRIBER SOURCE 09/13/2018 PANDA Richard Primary PANDA Richard [place] [id number] Insurance[facility] PART A BPolicy Number: [id number] [id number] Repository [address]Ofn: (330) Date:2018-09-13 [phone] () 09/13/2018 Secondary PANDA R [place] Insurance:HUMANA KEENERDOB: Community COMMERCIALPolicy [id number] Hospital Number: Repository [id number] Date:1679-42-35XO [address] [place] [address]GT: 09/13/2018 Tertiary NOT GIVENUNK [place] Insurance:SELF PAY [facility] Hospital Number: Effective Repository Date:2018-09-13 09/10/2018 PANDA R Primary PANDA R [place] [id number] Insurance:MEDICARE KEENERDOB: Community [place] PART A BPolicy Number: [id number], [place] [id number] Repository [address]93Dgi: 330) Date:2018-09-10 [phone] () 09/10/2018 Secondary PANDA R [place] Insurance:HUMANA KEENERDOB: [facility] [id number] Hospital Number: Repository [id number] Date:7596-27-91VP [address] [place] [address]RX: 09/10/2018 Tertiary NOT GIVENUNK [place] Insurance:SELF PAY [facility] Hospital Number: Effective Repository Date:2018-09-10 08/08/2018 PANDA R Primary PANDA R [place] [id number] Insurance:MEDICARE KEENERDOB: Community [place] PART A BPolicy Number: [id number], [place] [id number] Repository [address]Ner: (330) Date:2018-08-06 [phone] () 08/08/2018 Secondary PANDA R [place] Insurance:HUMANA KEENERDOB: [facility] [id number] Hospital Number: Repository [id number] Date:4434-13-34TJ [address] [place] [address]SA: 08/08/2018 Tertiary NOT GIVENUNK [place] Insurance:SELF PAY [facility] Hospital Number: Effective Repository Date:2018-08-08 08/06/2018 PANDA R Primary PANDA R [place] [id number] Insurance:MEDICARE KEENERDOB: Community [place] PART A BPolicy Number: [id number], [place] [id number] Repository [address]Hfe: 330) Date:2018-08-06 [phone] () 08/06/2018 Secondary PANDA R [place] Insurance:HUMANA KEENERDOB: [facility] [id number] Hospital Number: Repository [id number] Date:3263-29-31BM[address] [address]DG: 08/06/2018 Tertiary NOT GIVENUNK [place] Insurance:SELF PAY [facility] Hospital Number: Effective Repository Date:2018-08-06 08/03/2018 PANDA R Primary PANDA R [place] [id number] Insurance:MEDICARE KEENERDOB: Community [place] PART A BPolicy Number: [id number], [place] [id number] Repository [address]Ync: 330) Date:2018-06-21 [phone] () 08/03/2018 Secondary PANDA R [place] Insurance:HUMANA KEENERDOB: [facility] [id number] Hospital Number: Repository [id number] Date:6528-86-00RF [address] [address]NI: 08/03/2018 Tertiary NOT GIVENUNK [place] Insurance:SELF PAY [facility] Hospital Number: Effective Repository Date:2018-08-03 08/03/2018 PANDA R Primary PANDA R [place] [id number] Insurance:MEDICARE KEENERDOB: Community [place] PART A BPolicy Number: [id number], [place] [id number] Repository [address]Mvr: 652) Date:2018-06-21 [phone] () 08/03/2018 Secondary PANDA R [place] Insurance:HUMANA KEENERDOB: [facility] [id number] Hospital Number: Repository [id number] Date:2867-74-34WP [address] [place] [address]UR: 08/03/2018 Tertiary NOT GIVENUNK [place] Insurance:SELF [facility]Y [facility] Hospital Number: Effective Repository Date:2018-08-03 08/03/2018 PANDA R Primary PANDA R [place] [id number] Insurance:MEDICARE KEENERDOB: Community [place] PART A BPolicy Number: [id number], [place] [id number] Repository [address]Suz: 330) Date:2018-06-21 [phone] () 08/03/2018 Secondary PANDA R [place] Insurance:HUMANA KEENERDOB: [facility] [id number] Hospital Number: Repository [id number] Date:9598-36-97NI [address] [place] [address]RE: 08/03/2018 Tertiary NOT GIVENUNK [place] Insurance:SELF PAY [facility] Number: Effective Repository Date:2018-08-03 08/03/2018 PANDA R Primary PANDA R [place] [id number] Insurance:MEDICARE KEENERDOB: Community [place] PART A BPolicy Number: [id number] [place], [place] [id number] Repository [address]Kka: 330) Date:2018-06-21 [phone] () 08/03/2018 Secondary PANDA R [place] Insurance:HUMANA KEENERDOB: [facility] [id number] Hospital Number: Repository [id number] Date:2430-09-86CU [address] [place] [address]QU: 08/03/2018 Tertiary NOT GIVENUNK [place] Insurance:SELF [facility]Y [facility] Hospital Number: Effective Repository Date:2018-08-03 08/03/2018 PANDA R Primary PANDA R [place] [id number] Insurance:MEDICARE KEENERDOB: Community [place] PART A BPolicy Number: [id number], [place] [id number] Repository [address]Uzs: (330) Date:2018-06-21 [phone] () 08/03/2018 Secondary PANDA R [place] Insurance:HUMANA KEENERDOB: [facility] COMMERCIALChan [facility] [id number] Hospital Number: Repository [id number] Date:4649-97-43UY [address] [place] [address]UO: 08/03/2018 Tertiary NOT GIVENUNK [place] Insurance:SELF PAY [facility] Hospital Number: Effective Repository Date:2018-06-21 07/27/2018 PANDA R Primary PANDA R [place] [id number] Insurance:MEDICARE KEENERDOB: Community [place] PART A BPolicy Number: [id number] [place], [place] [id number] Repository [address]Gyc: 330) Date:2018-07-27 [phone] () 07/27/2018 Secondary PANDA R [place] Insurance:HUMANA KEENERDOB: [facility] [id number] Hospital Number: Repository [id number] Date:[address] [address]AY: 07/27/2018 Tertiary NOT GIVENUNK [place] Insurance:SELF PAY [facility] Hospital Number: Effective Repository Date:2018-07-27 07/22/2018 PANDA R Primary PANDA R [place] [id number] Insurance:MEDICARE KEENERDOB: Community [place] PART A BPolicy Number: [id number] [place], [place] [id number] Repository [address]Dtg: (330) Date:2018-07-22 [phone] () 07/22/2018 Secondary PANDA R [place] Insurance:HUMANA KEENERDOB: [facility] [id number] Hospital Number: Repository [id number] Date:5024-62-87RB [address] [place] [address]CS: 07/22/2018 Tertiary NOT GIVENUNK [place] Insurance:SELF PAY [facility] Hospital Number: Effective Repository Date:2018-07-22 06/21/2018 PANDA R Primary PANDA R [place] [id number] Insurance:MEDICARE KEENERDOB: Community [place] PART A BPolicy Number: [id number] [id number] Repository [address]Nhg: (781) Date:2018-06-16 [phone] () 06/21/2018 Secondary PANDA R [place] Insurance:HUMANA KEENERDOB: [facility] [id number] Hospital Number: Repository [id number] Date:2449-12-39LF[address] [address]IG: 06/21/2018 Tertiary NOT GIVENUNK [place] Insurance:SELF PAY [facility] Hospital Number: Effective Repository Date:2018-06-16 03/22/2018 PANDA R Primary PANDA R [place] [id number] Insurance:MEDICARE KEENERDOB: Community [place] PART A BPolicy Number: [id number], [place] [id number] Repository [address]Lro: (648) Date:2018-03-18 [phone] () 03/22/2018 Secondary PANDA R [place] Insurance:HUMANA KEENERDOB: [facility] [id number] Hospital Number: Repository [id number] Date:4366-29-36BK [address] [place] [address]JQ: 03/22/2018 Tertiary NOT GIVENUNK [place] Insurance:SELF PAY [facility] Hospital Number: Effective Repository Date:2018-03-22 03/22/2018 PANDA R Primary PANDA R [place] [id number] Insurance:MEDICARE KEENERDOB: Community [place] PART A BPolicy Number: [id number], [place] [id number] Repository [address]Hfr: (330) Date:2018-03-18 [phone] () 03/22/2018 Secondary PANDA R [place] Insurance:HUMANA KEENERDOB: [facility] [id number] Hospital Number: Repository [id number] Date:6335-87-76GL [address] [place] [address]AT: 03/22/2018 Tertiary NOT GIVENUNK [place] Insurance:SELF PAY [facility] Number: Effective Repository Date:2018-03-22 03/22/2018 PANDA R Primary PANDA R [place] [id number] Insurance:MEDICARE KEENERDOB: Community [place] PART A BPolicy Number: [id number], [place] [id number] Repository [address]Xar: (330) Date:2018-03-18 [phone] () 03/22/2018 Secondary PANDA R [place] Insurance:HUMANA KEENERDOB: [facility] [id number] Hospital Number: Repository [id number] Date:0244-56-60JQ [address] [place] [address]FH: 03/22/2018 Tertiary NOT GIVENUNK [place] Insurance:[facility]LF [facility]Y [facility] Hospital Number: Effective Repository Date:2018-03-22 03/22/2018 PANDA R Primary PANDA R [place] [id number] Insurance:MEDICARE KEENERDOB: Community [place] PART A BPolicy Number: [id number], [place] [id number] Repository [address]Kxq: 330) Date:2018-03-18 [phone] () 03/22/2018 Secondary PANDA R [place] Insurance:HUMANA KEENERDOB: [facility] [id number] Hospital Number: Repository [id number] Date:0606-40-55YS [address] [place] [address]FX: 03/22/2018 Tertiary NOT GIVENUNK [place] Insurance:SELF PAY [facility] Hospital Number: Effective Repository Date:2018-03-18 02/10/2018 PANDA R Primary PANDA R [facility] KEENERDOB: Insurance:MEDICARE A KEENERDOB: Health System AND BPolicy Number: [id number] Repository [facility] [id number] [place], [place] Date: [address]Tst: () 02/10/2018 Secondary PANDA R [facility] Insurance:HUMANA KEENERDOB: Health System MEDICARE [id number] Repository SUPPLEMENTPolicy Number: [id number] Date: 01/07/2018 PANDA R Primary PANDA R [facility] KEENERDOB: Insurance:MEDICARE A KEENERDOB: Health System AND BPolicy Number: [id number] Repository [facility] [id number] [place], [place] Date: [address]Maw: () 01/07/2018 Secondary PANDA R [place] [facility] Insurance:HUMANA KEENERDOB: Health System MEDICARE [id number] Repository SUPPLEMENTPolicy Number: [id number] Date: 12/24/2017 Panda R Primary Panda R [place] [id number] Insurance:MEDICARE KeenerDOB: [facility] PART A BPolicy Number: [id number] [place] [id number] Repository 17162Qli: 330) Date:2017-12-02 [phone] () 12/24/2017 Secondary Panda R [place] Insurance:HUMANA KeenerDOB: [facility] [id number] Hospital Number: Repository [id number] Date:[id number] [address]HG: 12/24/2017 Tertiary NOT GIVENUNK [place] Insurance:SELF PAY [facility] Hospital Number: Effective Repository Date:2017-12-02 12/24/2017 Panda R Primary Panda R [place] [id number] Insurance:MEDICARE KeenerDOB: [facility] PART A BPolicy Number: [id number] [id number] Repository [address]Ynf: 330) Date:2017-12-02 [phone] () 12/24/2017 Secondary Panda R [place] Insurance:HUMANA KeenerDOB: [facility] [id number] Hospital Number: Repository [id number] Date:[id number] [address] [address]KB: 12/24/2017 Tertiary NOT GIVENUNK [place] Insurance:[facility] Hospital Number: Effective Repository Date:2017-12-24 11/30/2017 Panda R Primary Panda R [place] [id number] Insurance:MEDICARE KeenerDOB: [facility] PART A BPolicy Number: [id number] [id number] Repository [address]Yec: 330) Date:2017-11-30 [phone] () 11/30/2017 Secondary Panda R [place] Insurance:HUMANA KeenerDOB: [facility] [id number] Hospital Number: Repository [id number] Date:4501-12-12KQ [address] [address]MU: 11/30/2017 Tertiary NOT GIVENUNK [place] Insurance:SELF [facility] Hospital Number: Effective Repository Date:2017-11-30 10/07/2017 Panda R Primary Panda R [place] [id number] Insurance:MEDICARE KeenerDOB: [facility] PART A BPolicy Number: [id number], [place] [id number] Repository [address]Pvd: 330) Date:2017-09-22 [phone] () 10/07/2017 Secondary Panda R [place] Insurance:HUMANA KeenerDOB: [facility] [id number] Hospital Number: Repository [id number] Date:7027-89-14TU [address] [address]FE: 10/07/2017 Tertiary NOT GIVENUNK [place] Insurance:SELF PAY [facility] Hospital Number: Effective Repository Date:2017-09-22 10/07/2017 Panda R Primary Panda R [place] [id number] Insurance:MEDICARE KeenerDOB: [facility] PART A BPolicy Number: [id number], [place] [id number] Repository [address]Xee: ([phone]) Date:2017-09-22 [phone] (HP) 10/07/2017 Secondary Panda R [place] Insurance:HUMANA KeenerDOB: [facility] [id number] Hospital Number: Repository [id number] Date:[id number] [address] [address]PY: 10/07/2017 Tertiary NOT GIVENUNK [place] Insurance:[facility]LF [facility]Y [facility] Hospital Number: Effective Repository Date:2017-10-07 09/21/2017 Panda R Primary Panda R [place] [id number] Insurance:MEDICARE KeenerDOB: [facility] PART A BPolicy Number: [id number], [place] [id number] Repository [address]Gco: ([phone]) Date:2017-09-21 [phone] (HP) 09/21/2017 Secondary Panda R [place] Insurance:HUMANA KeenerDOB: [facility] [id number] Hospital Number: Repository [id number] Date:[id number] [address] [address]PL: 09/21/2017 Tertiary NOT GIVENUNK [place] Insurance:SELF PAY [facility] Hospital Number: Effective Repository Date:2017-09-21
== END 2018-08-09 11:30 | disposition home or self-care (01) | DRG 560 ==
PROVIDERS: Admitting Provider Family Medicine Geriatric Medicine; Family Provider Family Medicine; PCP Family Medicine; Visit Provider Family Medicine Geriatric Medicine
DX: Z47.1 Aftercare following joint replacement surgery (principal); I50.32 Chronic diastolic (congestive) heart failure; Z96.612 Presence of left artificial shoulder joint; Z91.81 History of falling; I48.2 Chronic atrial fibrillation; E11.9 Type 2 diabetes mellitus without complications; I11.0 Hypertensive heart disease with heart failure; M19.90 Unspecified osteoarthritis, unspecified site; M1A.9XX0 Chronic gout, unspecified, without tophus (tophi); F17.210 Nicotine dependence, cigarettes, uncomplicated; N32.81 Overactive bladder; E87.6 Hypokalemia
CPT/HCPCS: 36415; 71046; 80048; 82962; 85025; 85610; 93005; 97110; 97116; 97162; 97166; 97530; 97535; 97802

== ENCOUNTER 2018-09-10 07:31 | Emergency (ER) | payer MEDICARE, OTHER, SELFPAY ==
[2018-09-10 07:33] VITALS: BP 152/92; PULSE 77; RESP 17; TEMP 36.5; O2SAT 95; BMI 37.6
--- NOTE | 2018-09-10 07:59 | RAD_ITS ---
STUDY: X-RAY - RIGHT HIP REASON FOR EXAM: Male, 78 years old. Right-sided hip and thigh pain for several days. TECHNIQUE: 3 views of the hip. COMPARISON: MRI of the pelvis dated November 01, 2014. FINDINGS: There is multilevel degenerative disc disease in the degenerative arthropathy of the lumbar spine. There are osteoarthritic changes of the femoral head with marginal osteophyte formation. There is osteoarthritic spur formation of the acetabular rim. There is mild articular joint space narrowing. Normal visualized superior and inferior pubic rami and ischial tuberosities. There is no demonstrated hip fracture. RAD/HIP, UNI W/ Pelvis 2-3 Views IMPRESSION: 1. Moderately severe degenerative arthropathy of the right hip and mild degenerative arthropathy of left hip. 2. Moderately severe multilevel degenerative changes of the lumbar spine. Electronically Signed: Fadumo Arevalo MD at 9:02 EST , Service support ,
--- NOTE | 2018-09-10 08:00 | RAD_ITS ---
STUDY: X-RAY - LUMBAR SPINE REASON FOR EXAM: Male, 78 years old. Low back pain. TECHNIQUE: 3 view(s) of the lumbar spine were obtained. COMPARISON: Prior comparable comparison studies are not available for review at this time. FINDINGS: Normal lumbar lordosis. There is no substantial scoliosis. There is a normal alignment of the vertebrae. There is multilevel endplate spondylosis of the lumbar vertebrae. There is multi-level degenerative disc disease with multi-level disc space narrowing. There is moderately severe degenerative arthropathy the facet joints. Patient appears to have had laminectomies of L3, L4 and L5. There appears be dilated small bowel with maximum transverse dimension of approximately 4.5 cm. Pelvic calcifications are probably phleboliths. There are degenerative changes of the right hip. There are vascular calcifications of the abdominal aorta. RAD/Lumbar Spine 2 or 3 Views IMPRESSION: 1. Moderately severe multilevel degenerative disc disease and degenerative arthropathy of the lumbar spine. 2. Postoperative changes of the lumbar spine. 3. Dilated small bowel suggesting bowel obstruction. Electronically Signed: Fadumo Arevalo MD at 9:06 EST , Service support ,
--- NOTE | 2018-09-10 08:03 | ED.VISSUMM ---
- ER Visit Summary Date of Service: 09/10/18 Chief Complaint: [] 3 days of right posterior hip pain History of Present Illness: The patient is a 78 M [] history of left shoulder replacement 5 weeks ago, prior lumbar back surgery 7 years ago he reports for about 3 days he has had pain to the right hip that radiates from the right back region across the pelvic brim into the anterior thigh right, he is actually indicating when he walks forward he has more pain but can walk backwards with less pain he has trouble flexing at the hip, when you ask him to flex his knee toward his chest it causes pain, no trauma no fever no cough normal bowel bladder habits no other complaints he is healing well from his prior left shoulder replacement surgery and he has a long splint on Physical Examination: [] 152/80 afebrile General, no distress resting comfortably HEENT is generally unremarkable The neck is supple no adenopathy Cardiovascular, regular rate and rhythm Lungs, clear bilateral Abdomen, soft nontender Extremities, no clubbing cyanosis or edema, he has a pain from the right paralumbar musculature that crosses the pelvic ridge, goes down into the mid anterior right thigh, he cannot forward elevate or flex the hip knee toward chest, causes pain logrolling causes some pain, his knee function tib-fib ankle and foot are unremarkable pulses symmetric cap refill normal sensation normal, he indicates he has trouble going from supine to the standing position and when he stands he feels better but again if he tries to put his right foot in front of himself he complains of pain Neurologic, awake alert answering questions appropriately moving all 4 extremities Test Results: [] Emergency Department Course and Treatment: [] Patient indicates his health has been good his healing from the left shoulder surgery, he has been using a cane to support himself right upper extremity, he denies any trauma, his back condition lumbar spine surgery status is stable we discussed the long differential he is eating and drinking well no abdominal pain normal bowel bladder habits at this time x-rays were obtained pain management Treatment Plan: [] The patient's x-ray show DJD at all levels see those reports, no fractures nothing acute, reevaluation is resting cuffing the bed he states he feels much better we discussed inpatient versus outpatient management he does not wish to be under the hospital wants to go home prefers outpatient management, he and the indicate he is been leaning to the right side with a cane quite a bit and believe this may have exacerbated things, he is on Coumadin he does not believe he is a fall risk as again he is been very stable with a cane and he feels that he will have the walker to use should he require additional ambulatory support, his INRs have been therapeutic he will be prescribed a walker [place] No. 12 for pain to use as needed if Tylenol is ineffective and follow-up with his family physicians and return for change in symptoms Disposition: [] Impression: [] Right hip posterior back pain with some radicular symptoms, status post left shoulder replacement This note was generated with [employer] dictation software. It may contain incorrect words, spelling, and punctuation that were not noted in review of the chart prior to signing ED Disposition - Plan for ED Patient: Chief Complaint: Lower Extremity Injury Instructions: ED Contusion Hip Prescriptions: Hydrocodone Bitart/Apap 5-325 [[place] 5MG-325MG] 1 tab PO Q4H PRN PRN 2 Days #10 tab PRN Reason: Pain Referrals: Man Cha MD [Primary Care Provider] -
--- NOTE | 2018-09-10 08:06 | ED.DCSUM_ITS ---
- ER Visit Summary Date of Service: 09/10/18 Chief Complaint: [] 3 days of right posterior hip pain History of Present Illness: The patient is a 78 M [] history of left shoulder replacement 5 weeks ago, prior lumbar back surgery 7 years ago he reports for about 3 days he has had pain to the right hip that radiates from the right back region across the pelvic brim into the anterior thigh right, he is actually indicating when he walks forward he has more pain but can walk backwards with less pain he has trouble flexing at the hip, when you ask him to flex his knee toward his chest it causes pain, no trauma no fever no cough normal bowel bladder habits no other complaints he is healing well from his prior left shoulder replacement surgery and he has a long splint on Physical Examination: [] 152/80 afebrile General, no distress resting comfortably HEENT is generally unremarkable The neck is supple no adenopathy Cardiovascular, regular rate and rhythm Lungs, clear bilateral Abdomen, soft nontender Extremities, no clubbing cyanosis or edema, he has a pain from the right para lumbar musculature that crosses the pelvic ridge, goes down into the mid anterior right thigh, he cannot forward elevate or flex the hip knee toward chest, causes pain logrolling causes some pain, his knee function tib-fib ankle and foot are unremarkable pulses symmetric cap refill normal sensation normal, he indicates he has trouble going from supine to the standing position and when he stands he feels better but again if he tries to put his right foot in front of himself he complains of pain Neurologic, awake alert answering questions appropriately moving all 4 extremities Test Results: [] Emergency Department Course and Treatment: [] Patient indicates his health has been good his healing from the left shoulder surgery, he has been using a cane to support himself right upper extremity, he denies any trauma, his back condition lumbar spine surgery status is stable we discussed the long differential he is eating and drinking well no abdominal pain normal bowel bladder habits at this time x-rays were obtained pain management Treatment Plan: [] The patient's x-ray show DJD at all levels see those reports, no fractures nothing acute, reevaluation is resting cuffing the bed he states he feels much better we discussed inpatient versus outpatient management he does not wish to be under the hospital wants to go home prefers outpatient management, he and the indicate he is been leaning to the right side with a cane quite a bit and believe this may have exacerbated things, he is on Coumadin he does not believe he is a fall risk as again he is been very stable with a cane and he feels that he will have the walker to use should he require additional ambulatory support, his INRs have been therapeutic he will be prescribed a walker [place] No. 12 for pain to use as needed if Tylenol is ineffective and follow-up with his family physicians and return for change in symptoms Disposition: [] Impression: [] Right hip posterior back pain with some radicular symptoms, status post left shoulder replacement This note was generated with [employer] dictation software. It may contain incorrect words, spelling, and punctuation that were not noted in review of the chart prior to signing ED Disposition - Plan for ED Patient: Chief Complaint: Lower Extremity Injury Instructions: ED Contusion Hip Prescriptions: Hydrocodone Bitart/Apap 5-325 [[place] 5MG-325MG] 1 tab PO Q4H PRN PRN 2 Days #10 tab PRN Reason: Pain Referrals: Man Cha MD [Primary Care Provider] -
[2018-09-10] MEDS: Ondansetron ODT 4 MG Tablet PO (08:08)
[2018-09-10] MEDS: morphine 10 MG/ML Syringe 8 MG SC (08:08)
--- NOTE | 2018-09-10 09:29 | DCINST.ED_ITS ---
ED Disposition - Plan for ED Patient: Chief Complaint: Lower Extremity Injury Instructions: ED Contusion Hip Prescriptions: Hydrocodone Bitart/Apap 5-325 [[place] 5MG-325MG] 1 tab PO Q4H PRN PRN 2 Days #10 tab PRN Reason: Pain Referrals: Man Cha MD [Primary Care Provider] -
[2018-09-10 09:31] VITALS: BP 147/83; PULSE 91; RESP 14; O2SAT 99
--- OUTSIDE RECORDS SUMMARY | 2018-11-14 09:14 | XMS RPT_ITS ---
:1940 Author Organization OHIP Support Name Relationship Address Phone DONELL FLOYD Unavailable [address] + [place] [address] R Unavailable Unavailable Unavailable FOZIA, DONELL Unavailable [address] + [place] [address] R Unavailable Unavailable Unavailable FOZIA DONELL Unavailable [address] + [place] [address] R Unavailable Unavailable Unavailable FOZIA, DONELL Unavailable [address] + [place] [address] R Unavailable Unavailable Unavailable FOZIA, DONELL Unavailable [address] + [place] [address] R Unavailable Unavailable Unavailable FOZIA, DONELL Unavailable [address] + [place] [address] R Unavailable Unavailable Unavailable FOIZA, DONELL Unavailable [address] + [place] [address] R Unavailable Unavailable Unavailable FOZIA, DONELL Unavailable [address] + [place] [address] R Unavailable Unavailable Unavailable FOZIA, DONELL Unavailable [address] + [place] [address] R Unavailable Unavailable Unavailable FOZIA, DONELL Unavailable [address] + [place] [address] R Unavailable Unavailable Unavailable FOZIA, DONELL Unavailable [address] + [place] [address] R Unavailable Unavailable Unavailable FOZIA, DONELL Unavailable [address] + [place] [address] R Unavailable Unavailable Unavailable FOZIA, DONELL Unavailable [address] + [place] [address] R Unavailable Unavailable Unavailable FOZIA, DONELL Unavailable [address] + [place] [address] R Unavailable Unavailable Unavailable FOZIADUSTINCY Unavailable [address] + [place] [address] R Unavailable Unavailable Unavailable FOZIADUSTINCY Unavailable [address] + [place] [address] R Unavailable Unavailable Unavailable FOZIADONELL Unavailable [address] + [place] [address] R Unavailable Unavailable Unavailable FOZIADUSTINCY Unavailable [address] + [place] [address] R Unavailable Unavailable Unavailable FOZIADUSTINCY Unavailable [address] + [place] [address] R Unavailable Unavailable Unavailable FOZIADUSTINCY Unavailable [address] + [place] [address] R Unavailable Unavailable Unavailable FOZIADUSTINCY Unavailable [address] + [place] [address] R Unavailable Unavailable Unavailable FOZIADUSTINCY Unavailable [address] + [place] [address] R Unavailable Unavailable Unavailable Care Team Providers Name Role Phone Jp Sanabria Attending Unavailable Kaushik, Vick Referring Unavailable Kaushik, Vick Admitting Unavailable Paintsil, Concrete Attending Unavailable Kaushik, Vick Referring Unavailable [facility] Unavailable Paintsil, Concrete Consulting Unavailable Kaushik, Vick Consulting Unavailable Kaushik, Vick Admitting Unavailable Paintsil, Concrete Attending Unavailable Kaushik, Vick Referring Unavailable [facility] Unavailable Paintsil, Concrete Consulting Unavailable Kaushik, Vick Consulting Unavailable Kaushik, Vick Admitting Unavailable Paintsil, Concrete Attending Unavailable Kaushik, Vick Referring Unavailable [facility] Unavailable Paintsil, Concrete Consulting Unavailable Kaushik, Vick Consulting Unavailable Kaushik, Vick Admitting Unavailable Paintsil, Concrete Attending Unavailable Kaushik, Vick Referring Unavailable [facility] Unavailable Paintsil, Concrete Consulting Unavailable Kaushik, Vick Consulting Unavailable Franco, Nima Chi Admitting Unavailable Franco, Nima Chi Attending Unavailable [facility] Unavailable Polo Carpenter Attending Unavailable Franco, Nima Chi Referring Unavailable [facility] Unavailable Manoj Alberto Attending Unavailable Starla, Man Attending Unavailable Starla, Man Referring Unavailable Starla, Man Primary Care Unavailable Starla, Man Attending Unavailable Starla, Man Primary Care Unavailable Starla, Man Attending Unavailable Starla, Man Referring Unavailable Starla, Man Primary Care Unavailable Darwin Louis Attending Unavailable Starla, Man Referring Unavailable Starla, Man Attending Unavailable Starla, Man Primary Care Unavailable Starla, Man Attending Unavailable Starla, Man Referring Unavailable Starla, Man Primary Care Unavailable Jp Sanabria Attending Unavailable Starla, Man Referring Unavailable Moodhubert, Jp Attending Unavailable Jp Sanabria Referring Unavailable Starla, Man Primary Care Unavailable Anish Dalton D.O. Attending Unavailable Jp Sanabria Referring Unavailable Starla, Man Primary Care Unavailable Jp Sanabria Consulting Unavailable Jp Sanabria Attending Unavailable Jp Sanabria Referring Unavailable Starla, Man Primary Care Unavailable Jp Sanabria Consulting Unavailable Jp Sanabria Attending Unavailable Jp Sanabria Referring Unavailable Vick Faulkner Attending Unavailable Starla, Man Primary Care Unavailable Kaushik Vick Referring Unavailable Kaushik Vick Admitting Unavailable Vick Faulkner Attending Unavailable Vick Faulkner Referring Unavailable Starla, Man Primary Care Unavailable Paintsil, Concrete Consulting Unavailable Vick Faulkner Attending Unavailable Starla, [...] GIUSEPPE, JUAN E Referring Unavailable GIUSEPPE, JUAN Attending Unavailable GIUSEPPE, JUAN Referring Unavailable STARLA, MAN Primary Care Unavailable JUAN CHIN Attending Unavailable GIUSEPPE, JUAN Referring Unavailable PROBLEMS PROBLEMS DATE TYPE CONDITION / CODE ATTENDING STATUS SOURCE 09/10/2018 Unknown R52 - Pain, Jwayyed, Active [place] unspecified / [place] [facility] R52(ICD-10) Hospital Repository 08/31/2018 Unknown R00.0 - Polo Carpenter Active [place] Tachycardia, Community unspecified / Hospital R00.0(ICD-10) Repository 08/09/2018 Unknown Z47.1 - Aftercare Franco, Nima Chi Active [place] following joint Community replacement surgery Hospital / Z47.1(ICD-10) Repository 08/09/2018 Unknown M12.811 - Other Franco, Nima Chi Active [facility] specific Community arthropathies, not Hospital elsewhere Repository classified, right shoulder / M12.811(ICD-10) 08/09/2018 Unknown M75.101 - Franco, Nima Chi Active [place] Unspecified rotator Community cuff tear or Hospital rupture of right Repository shoulder, not specified as traumatic / M75.101(ICD-10) 08/06/2018 Unknown 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 KaushikVick hayden Active [facility] of left artificial Community shoulder joint / Hospital Z96.612(ICD-10) Repository 08/01/2018 Unknown I10 - Essential MoodispawJp Active [facility] (primary) Community hypertension / Hospital I10(ICD-10) Repository 05/02/2018 Unknown I48.0 - Paroxysmal Moodispashira Jp Active [facility] atrial fibrillation Community / I48.0(ICD-10) Hospital Repository 05/02/2018 Unknown 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, 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 / I48.1(ICD-10) Hospital Repository 02/10/2018 Active Paroxysmal atrial NA Active [place] fibrillation / Clinic Main I48.0(ICD-10) [place] Repository 01/18/2018 Active Encounter for NA Active [place] screening for Clinic Main malignant neoplasm [place] of colon / Repository Z12.11(ICD-10) 2015 Active Essential (primary) NA Active [place] hypertension / Clinic Main I10(ICD-10) [place] Repository 01/07/2018 Active 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) / Repository D50.0(ICD-10) 01/07/2018 Admitting Unknown / JUAN CHIN Active [place] [facility] UNK(Unknown) [facility] Repository 11/30/2017 Unknown I49.9 - Cardiac Starla, Man Active [place] arrhythmia, Community unspecified / Hospital I49.9(ICD-10) Repository 11/30/2017 Unknown E11.9 - Type 2 Man Cha diabetes mellitus Community without Hospital complications / Repository E11.9(ICD-10) 11/30/2017 Unknown R60.9 - Edema, Man [place] unspecified / Community R60.9(ICD-10) Hospital Repository 10/07/2017 Unknown I50.9 - Heart Man Cha failure, Community unspecified / Hospital I50.9(ICD-10) Repository 10/07/2017 Unknown R06.00 - Dyspnea, Man Cha Active [facility] unspecified / Community R06.00(ICD-10) Hospital Repository PROCEDURES PROCEDURES No Procedure Records FoundRESULTS RESULTS EXTREMITY LOWER Observed: 09/13/2018 Status: F Source: [place] WITHOUT CONTRA 11:46 AM [facility] [place] [facility] Imaging Services [address] [place] [address] Extremity Lower without Contra MR#: [id number] Acct: [id number] Name: PANDA FLOYD Rep #: [id number] : 1940 M 78 From: Dong Multani MD PCP: Man Cha MD Status: REG CLI Study: Extremity Lower without Contra Date of Exam: 09/13/18 Exam# [id number] Ordering Dr: Man Cha MD STUDY: CT [...] tissue prominence of the iliac is muscle. [id number] degree of degenerative changes of the hip joint. CT/Extremity Lower without Contra IMPRESSION: Diffuse soft tissue swelling involving the hip joint as described. An inflammatory process or synovial hypertrophy should be ruled out. Degenerative changes of the hip joint. Electronically Signed: Dong Multani MD at 13:48 EST Tel [phone], Service support , CC: Man Cha MD Housing Specialist: Signed EMERGENCY DEPARTMENT Observed: 09/10/2018 Status: F Source: [place] SUMMARY 2:47 PM [facility] [place] [facility] Medical Records Department [address] [place] [address] Emergency Department Summary 09/10/18 0803 MR#: [id number] Acct: [id number] Name: PANDA FLOYD Rep #: [id number] : 1940 78 From: Manoj Alberto MD [...] therapeutic he will be prescribed a walker Keller No. 12 for pain to use as needed if Tylenol is ineffective and follow-up with his family physicians and return for change in symptoms Disposition: [] Impression: [] Right hip posterior back pain with some radicular symptoms, status post left shoulder replacement This note was generated with [employer] dictation software. It may contain incorrect words, spelling, and punctuation that were not noted in review of the chart prior to signing ED Disposition - Plan for ED Patient: Chief Complaint: Lower Extremity Injury Instructions: ED Contusion Hip Prescriptions: Hydrocodone Bitart/Apap 5-325 [Keller 5MG-325MG] 1 tab PO Q4H PRN PRN 2 Days #10 tab PRN Reason: Pain Referrals: Man Cha MD [Primary Care Provider] - What to do if you have Problems For any increased pain, shortness of breath, bleeding, nausea or vomiting, chest pain, or any unexpected problems, contact your Primary Care Provider. Call [facility] ([phone]) or report to the closest Emergency Room. Call 911 if necessary. 09/10/18 1447 <Electronically signed by Manoj Alberto MD> Date Manoj Alberto MD Cosigner Signature (If Indicated): Date CC: Man Cha MD DISCHARGE INSTRUCTION Observed: 09/10/2018 Status: F Source: [place] 9:29 AM [facility] [place] [facility] Medical Records Department [address] [place] [address] Discharge Instruction 09/10/18926 MR#: [id number] Acct: [id number] Name: PANDA FLOYD Rep #: [id number] : 1940 78 From: Manoj Alberto MD PCP: Man Cha MD Status: REG ER ED Disposition - Plan for ED Patient: Chief Complaint: Lower Extremity Injury Instructions: ED Contusion Hip Prescriptions: Hydrocodone Bitart/Apap 5-325 [Keller 5MG-325MG] 1 tab PO Q4H PRN PRN 2 Days #10 tab PRN Reason: Pain Referrals: Man Cha MD [Primary Care Provider] - What to do if you have Problems For any increased pain, shortness of breath, bleeding, nausea or vomiting, chest pain, or any unexpected problems, contact your Primary Care Provider. Call [facility] ([phone]) or report to the closest Emergency Room. Call 911 if necessary. 09/10/18 0929 <Electronically signed by Manoj Alberto MD> Date Manoj Alberto MD Cosigner Signature (If Indicated): Date CC: Man Cha MD HIP, UNI W/ PELVIS Observed: 09/10/2018 Status: F Source: [place] 2-3 VIEWS 8:01 AM [facility] [place] [facility] Imaging Services [address] [place] [address] HIP, UNI W/ Pelvis 2-3 Views MR#: [id number] Acct: [id number] Name: PANDA FLOYD Rep #: [id number] : 1940 M 78 From: Fadumo Rivera MD PCP: Man Cha MD Status: REG ER Study: HIP, UNI W/ Pelvis 2-3 Views Date of Exam: 09/10/18 Exam# [id number] Ordering Dr: Manoj Alberto MD STUDY: X-RAY [...] CC: MD Sabina Alberto; Man Cha MD Housing Specialist: Signed LUMBAR SPINE 2 OR 3 Observed: 09/10/2018 Status: F Source: [place] VIEWS 8:01 AM [facility] [place] [facility] Imaging Services [address] [place] [address] [place] [address] Lumbar Spine 2 or 3 Views MR#: [id number] Acct: [id number] Name: PANDA FLOYD Rep #: [id number] : 1940 78 From: Fadumo Rivera MD PCP: Man Cha MD Status: REG ER Study: Lumbar Spine 2 or 3 Views Date of Exam: 09/10/18 Exam# [id number] Ordering Dr: Manoj Alberto MD STUDY: X-RAY [...] CC: MD Sabina Alberto; Man Cha MD Housing Specialist: Signed 12 LEAD ELECTROCARDIOGRAM Observed: 08/17/2018 Status: F Source: [place] 2:53 PM [facility] [facility] Cardiovascular Services [address] [place] [address] 12 Lead EKG 08/08/18 0937 MR#: [id number] Acct: [id number] Name: PANDA FLOYD Rep #: [id number] : 1940 78 From: Polo Carpenter MD Attending Dr: Franco LOPES,Nima Nguyen Status: DIS IN Ordering Dr: Nima Gamez MD Date: 08/08/18 Location: [facility] Sex: M C Admitted: 08/06/18 Test [...] now Present Confirmed by POLO CARPENTER ([id number]), film editor QUENTIN RIVERA ([id number]) on 08/17/2018 2:53:15 PM [...] NURSING PROTOCOL Performed By: #### L501.080 #### [facility] Laboratory Point of Care [address] [place] [address] DISCHARGE SUMMARY Observed: 08/08/2018 Status: F Source: [place] 8:26 PM [facility] [place] [facility] Medical Records Department [address] [place] [address] Discharge Summary 08/08/182024 MR#: [id number] Acct: [id number] Name: PANDA FLOYD Rep #: [id number] : 1940 78 From: Nima Gamez MD PCP: Man Cha MD Status: ADM IN Location: [place] [address] Discharge Date and Diagnosis Date of Admission: [...] Dong Multani MD at 10:48 EST Tel [phone], Service support , Labs (Last 48 Hours) [...] Date Recorded By Document 08/08/18 10:38 LATRELL [id number] 08/08/18 10:40 LATRELL Orthostatic Vitals Standing -Blood [...] When: 2 weeks. Please Follow Up With: [facility] [place] When: 1 week. Please [...] (if applicable): Date CC: Man Cha MD; Nmia Gamez MD Signed DISCHARGE INSTRUCTION Observed: 08/08/2018 Status: F Source: [place] 8:25 PM [facility] [facility] Medical Records Department [address] [place] [address] Instructions for Home/Discharge Instructions 08/08/182022 MR#: [id number] Acct: [id number] Name: PANDA FLOYD Rep #: [id number] : 1940 78 From: Nima Gamez MD [...] When: 2 weeks. Please Follow Up With: [facility] [place] When: 1 week. Please Follow Up With: Man Cha MD When: after DC Proposed Discharge Date: 08/09/18 08/08/182024 <Electronically signed by Nima Gamez MD> Date Nima Gamez MD CC: Man Cha MD CHEST PA AND LATERAL Observed: 08/08/2018 Status: F Source: [place] 9:50 AM [facility] [place] [facility] Imaging Services [address] [place] [address] Chest PA and Lateral MR#: [id number] Acct: [id number] Name: PANDA FLOYD Rep #: [id number] : 1940 M 78 From: Dong Multani MD PCP: Man Cha MD Status: ADM IN Study: Chest PA and Lateral Date of Exam: 08/08/18 Exam# [id number] Ordering Dr: Nima Gamez MD STUDY: X-RAY [...] Dong Multani MD at 10:48 EST Tel [phone], Service support , CC: Man Cha MD; Nima Gamez MD Housing Specialist: Signed DISCHARGE SUMMARY Observed: 08/08/2018 Status: F Source: [place] 7:37 AM [facility] [facility] Medical Records Department [address] [place] [address] Discharge Summary 08/08/18 0732 MR#: [id number] Acct: [id number] Name: PANDA FLOYD Rep #: [id number] : 1940 78 From: Dennis Page PA-C PCP: Man Cha MD Status: DIS IN Y Location: MD3 TG490-6 Discharge Date and Diagnosis - Primary Discharge [...] was admitted to the 3rd floor at [facility]. The patient's pain was managed with the use of IV and p.o. pain medications. Medicine was consulted for postoperative medical management. Patient participated in physical therapy. Patient did have difficulty with balance and required significant assistance with physical therapy. It was recommended that patient required detention facility upon discharge. Patient was discharged on postoperative day #3 to transitional care unit at [facility]. Patient was given medications stated below. Patient will follow up with [facility] per postop instructions for reassessment. - [...] NURSING PROTOCOL Performed By: #### L501.080 #### [facility] Laboratory Point of Care [address] [place], [place] [address] PROTHROMBIN TIME W/INR Collected: 08/08/2018 Status: F Source: [place] 5:10 AM [facility] [place] [facility] TYPE CODE TESTS RESULT OUT OF RANGE REFERENCE UNITS LAB L300.4150 11.7-14.9 SECONDS High PROTIME 16.1 LAB L300.4200 Normal INR 1.3 Performed By: #### L300.3900 #### [facility] Laboratory [address] [place], [place], [address] BEDSIDE GLUCOSE Collected: 08/07/2018 Status: F Source: [place] 9:01 PM [facility] TYPE CODE TESTS RESULT OUT OF REFERENCE UNITS RANGE LAB L501.080 70-110 mg/dL High BEDSIDE GLU 155 Result Comment: MANAGEMENT OF PATIENT CARE PER NURSING PROTOCOL Performed By: #### L501.080 #### [facility] Point of Care [address] [place], [place] [address] BEDSIDE GLUCOSE Collected: 08/07/2018 Status: F Source: [place] 5:33 PM [facility] TYPE CODE TESTS RESULT OUT OF REFERENCE UNITS RANGE LAB L501.080 70-110 mg/dL High BEDSIDE GLU 180 Result Comment: MANAGEMENT OF PATIENT CARE PER NURSING PROTOCOL Performed By: #### L501.080 #### [facility] Point of Care [address] [place], [place] [address] BEDSIDE GLUCOSE Collected: 08/07/2018 Status: F Source: [place] 11:26 AM [facility] TYPE CODE TESTS RESULT OUT OF REFERENCE UNITS RANGE LAB L501.080 70-110 mg/dL High BEDSIDE GLU 119 Result Comment: Dr Germain Followed MANAGEMENT OF PATIENT CARE PER NURSING PROTOCOL Performed By: #### L501.080 #### [facility] Point of Care [address] [place] [address] CBC W/DIFF, AUTOMATED Collected: 08/07/2018 Status: F Source: [place] 6:46 AM [facility] [place] [...] Lymph 0.71 Performed By: #### L100.0100 #### [facility] [address] [place], [address] BASIC METABOLIC Collected: 08/07/2018 Status: F Source: [place] PROFILE ([facility]) 6:46 AM [facility] [place] [...] GAP 7 Performed By: #### L500.2500 #### [facility] [address] [place], [address] BEDSIDE GLUCOSE Collected: 08/07/2018 Status: F Source: [place] 6:36 AM [facility] [place] [facility] TYPE CODE TESTS RESULT OUT OF REFERENCE UNITS RANGE LAB L501.080 70-110 mg/dL High BEDSIDE GLU 153 Result Comment: MANAGEMENT OF PATIENT CARE PER NURSING PROTOCOL Performed By: #### L501.080 #### [facility] Point of Care [address] [place] [address] [place] [address] BEDSIDE GLUCOSE Collected: 08/06/2018 Status: F Source: [place] 9:05 PM [facility] TYPE CODE TESTS RESULT OUT OF REFERENCE UNITS RANGE LAB L501.080 70-110 mg/dL High BEDSIDE GLU 146 Result Comment: MANAGEMENT OF PATIENT CARE PER NURSING PROTOCOL Performed By: #### L501.080 #### [facility] Point of Care [address] [place] [address] BEDSIDE GLUCOSE Collected: 08/06/2018 Status: F Source: [place] 5:02 PM [facility] TYPE CODE TESTS RESULT OUT OF REFERENCE UNITS RANGE LAB L501.080 70-110 mg/dL High BEDSIDE GLU 150 Result Comment: MANAGEMENT OF PATIENT CARE PER NURSING PROTOCOL Performed By: #### L501.080 #### [facility] Point of Care [address] [facility] [place] [address] HISTORY AND PHYSICAL Observed: 08/06/2018 Status: F Source: [place] EXAM 5:00 PM [facility] Medical Records Department [address] [place] [address] History and Physical 08/06/18 1645 MR#: [id number] Acct: [id number] Name: PANDA FLOYD Rep #: [id number] : 1940 78 From: Nima Gamez MD PCP: Man Cha MD Status: ADM IN Location: [place] [address] Problem List (1) Right rotator cuff tear [...] - Metoprolol succinate 50MG daily, Lasix 20MG MW. * Nutrition - Glucerna Shake 120ML 4x/day. [...] BEDSIDE GLUCOSE Collected: 08/06/2018 Status: F Source: [place] 11:35 AM [facility] TYPE CODE TESTS RESULT OUT OF REFERENCE UNITS RANGE LAB L501.080 70-110 mg/dL High BEDSIDE GLU 156 Result Comment: MANAGEMENT OF PATIENT CARE PER NURSING PROTOCOL Performed By: #### L501.080 #### [facility] Point of Care [address] [place], [place] [address], [place] [address] CBC W/DIFF, AUTOMATED Collected: 08/06/2018 Status: F [...] Lymph 0.93 Performed By: #### L100.0100 #### [facility] [address] [facility] [place], [place], [address] PROTHROMBIN TIME W/INR Collected: 08/06/2018 Status: F Source: [place] 7:30 AM [facility] TYPE CODE TESTS RESULT OUT OF RANGE REFERENCE UNITS LAB L300.4150 11.7-14.9 SECONDS High PROTIME 15.9 LAB L300.4200 Normal INR 1.3 Performed By: #### L300.3900 #### [facility] [address] [place], [place], [address] BASIC METABOLIC Collected: 08/06/2018 Status: F Source: [place] PROFILE ([facility]) 7:30 AM [facility] [...] GAP 10 Performed By: #### L500.2500 #### [facility] [address] [place], [address] BEDSIDE GLUCOSE Collected: 08/06/2018 Status: F Source: [place] 6:57 AM [facility] [facility] TYPE CODE TESTS RESULT OUT OF REFERENCE UNITS RANGE LAB L501.080 70-110 mg/dL High BEDSIDE GLU 148 Result Comment: MANAGEMENT OF PATIENT CARE PER NURSING PROTOCOL Performed By: #### L501.080 #### [facility] Point of Care [address] [place] [address] BEDSIDE GLUCOSE Collected: 08/05/2018 Status: F Source: [place] 10:03 PM [facility] TYPE CODE TESTS RESULT OUT OF REFERENCE UNITS RANGE LAB L501.080 70-110 mg/dL High BEDSIDE GLU 177 Result Comment: MANAGEMENT OF PATIENT CARE PER NURSING PROTOCOL Performed By: #### L501.080 #### [facility] Point of Care [address] [place] [address] BEDSIDE GLUCOSE Collected: 08/05/2018 Status: F Source: [place] 6:01 PM [facility] TYPE CODE TESTS RESULT OUT OF REFERENCE UNITS RANGE LAB L501.080 70-110 mg/dL High BEDSIDE GLU 137 Result Comment: MANAGEMENT OF PATIENT CARE PER NURSING PROTOCOL Performed By: #### L501.080 #### [facility] Point of Care [address] [place] [address] BEDSIDE GLUCOSE Collected: 08/05/2018 Status: F Source: [place] 11:18 AM [facility] [place] [facility] TYPE CODE TESTS RESULT OUT OF REFERENCE UNITS RANGE LAB L501.080 70-110 mg/dL High BEDSIDE GLU 149 Result Comment: MANAGEMENT OF PATIENT CARE PER NURSING PROTOCOL Performed By: #### L501.080 #### [facility] Point of Care [address] [place] [address] BEDSIDE GLUCOSE Collected: 08/05/2018 Status: F Source: [place] 6:41 AM [facility] [place] [facility] TYPE CODE TESTS RESULT OUT OF REFERENCE UNITS RANGE LAB L501.080 70-110 mg/dL High BEDSIDE GLU 117 Result Comment: MANAGEMENT OF PATIENT CARE PER NURSING PROTOCOL Performed By: #### L501.080 #### [facility] Point of Care [address] [place], [place] [address] BEDSIDE GLUCOSE Collected: 08/04/2018 Status: F Source: [place] 10:17 PM [facility] TYPE CODE TESTS RESULT OUT OF REFERENCE UNITS RANGE LAB L501.080 70-110 mg/dL High BEDSIDE GLU 133 Result Comment: MANAGEMENT OF PATIENT CARE PER NURSING PROTOCOL Performed By: #### L501.080 #### [facility] Point of Care [address] [place] [place] [address] BEDSIDE GLUCOSE Collected: 08/04/2018 Status: F Source: [place] 4:12 PM [facility] [place] TYPE CODE TESTS RESULT OUT OF REFERENCE UNITS RANGE LAB L501.080 70-110 mg/dL High BEDSIDE GLU 155 Result Comment: MANAGEMENT OF PATIENT CARE PER NURSING PROTOCOL Performed By: #### L501.080 #### [facility] Point of Care [address] [place] [address] BEDSIDE GLUCOSE Collected: 08/04/2018 Status: F Source: NELSON 11:48 AM [facility] [place] TYPE CODE TESTS RESULT OUT OF REFERENCE UNITS RANGE LAB L501.080 70-110 mg/dL High BEDSIDE GLU 166 Result Comment: MANAGEMENT OF PATIENT CARE PER NURSING PROTOCOL Performed By: #### L501.080 #### [facility] Point of Care [address] [place] [address] DISCHARGE INSTRUCTION Observed: 08/04/2018 Status: F Source: [place] 10:47 AM [facility] [place] [facility] Medical Records Department [address] [place] [address] Instructions for Home/Discharge Instructions 08/04/18 1045 MR#: [id number] Acct: [id number] Name: PANDA FLOYD Rep #: [id number] : 1940 78 From: Dennis Page PA-C [...] on August 08, 2018 Additional Instructions: Follow [facility] postop instructions Allergies/Adverse Reactions: Allergies No [...] INR 1.3 Performed By: #### L300.3900 #### [facility] [address] [place], [address] SHOULDER MIN 2 VIEWS Observed: 08/04/2018 Status: F Source: [place] 6:53 AM [facility] [place] [facility] Imaging Services [address] [place] [address] Shoulder min 2 Views MR#: [id number] Acct: [id number] Name: PANDA FLOYD Rep #: [id number] : 1940 M 78 From: Dong Multani MD PCP: Man Cha MD Status: ADM IN Study: Shoulder min 2 Views Date of Exam: 08/04/18 Exam# [id number] Ordering Dr: Vick Faulkner MD STUDY: X-RAY [...] Dong Multani MD at 10:46 EST Tel [phone], Service support , CC: Man Cha MD; Vick Faulkner MD Housing Specialist: Signed BEDSIDE GLUCOSE Collected: 08/04/2018 Status: F Source: [place] 6:44 AM [facility] [place] TYPE CODE TESTS RESULT OUT OF REFERENCE UNITS RANGE LAB L501.080 70-110 mg/dL High BEDSIDE GLU 140 Result Comment: MANAGEMENT OF PATIENT CARE PER NURSING PROTOCOL Performed By: #### L501.080 #### [facility] Point of Care [address] [place] [address] BEDSIDE GLUCOSE Collected: 08/03/2018 Status: F Source: NELSON 10:12 PM [facility] [place] TYPE CODE TESTS RESULT OUT OF REFERENCE UNITS RANGE LAB L501.080 70-110 mg/dL High BEDSIDE GLU 118 Result Comment: MANAGEMENT OF PATIENT CARE PER NURSING PROTOCOL Performed By: #### L501.080 #### [facility] Point of Care [address] [place], [place] [address] BEDSIDE GLUCOSE Collected: 08/03/2018 Status: F Source: NELSON 4:25 PM [facility] [place] TYPE CODE TESTS RESULT OUT OF REFERENCE UNITS RANGE LAB L501.080 70-110 mg/dL High BEDSIDE GLU 169 Result Comment: MANAGEMENT OF PATIENT CARE PER NURSING PROTOCOL Performed By: #### L501.080 #### [facility] Point of Care [address] [place] [address] BEDSIDE GLUCOSE Collected: 08/03/2018 Status: F Source: NELSON 11:54 AM [facility] [place] TYPE CODE TESTS RESULT OUT OF REFERENCE UNITS RANGE LAB L501.080 70-110 mg/dL High BEDSIDE GLU 180 Result Comment: MANAGEMENT OF PATIENT CARE PER NURSING PROTOCOL Performed By: #### L501.080 #### [facility] Point of Care [address] [place], [place] [address] BEDSIDE GLUCOSE Collected: 08/03/2018 Status: F Source: [place]ELSON 10:09 AM [facility] [place] TYPE CODE TESTS RESULT OUT OF REFERENCE UNITS RANGE LAB L501.080 70-110 mg/dL High BEDSIDE GLU 196 Result Comment: MANAGEMENT OF PATIENT CARE PER NURSING PROTOCOL Performed By: #### L501.080 #### [facility] Point of Care [address] [place] [address] OPERATIVE REPORT Observed: 08/03/2018 Status: F Source: [place]EL[place] 8:46 AM [facility] [place] [facility] Medical Records Department [address] [place] [address] Operative Report 08/03/18 0841 MR#: [id number] Acct: [id number] Name: PANDA FLOYD Rep #: [id number] : 1940 78 From: Vick Faulkner MD PCP: Man Cha MD Status: ADM IN Y Location: MD3 [id number] Report of Operation Date of Procedure: 08/03/18 Pre-Operative Diagnosis: Left shoulder cuff tear arthropathy Post-Operative Diagnosis: Left shoulder cuff tear arthropathy Surgery/Procedure Performed:: Left reverse total shoulder replacement Description of Surgical Findings:: Stable shoulder electronic heat seal operator: Renata Salamanca Type of Anesthesia:: General Anesthesiologist: Jaokb Livingston Special Medications: 2 g Ancef, 2 [...] rotated and the shoulder was dislocated. The NXT-ID humeral head cutting guide was used to [...] of phase 1 physical therapy. Grafts/Implants Used: Donnellson reunion reverse total shoulder - Complications None - Admit VTE Documentation VTE Present on Admission: No VTE Mechan Device Prophylaxis: SCD's, Thigh High ALBERTO Hose VTE Pharm Prophylaxis ordered?: Yes 08/03/18 0846 <Electronically signed by Vick Faulkner MD> Date Vick Faulkner MD CC: Man Cha MD; Vick Faulkner MD Signed SHOULDER ONE VIEW Observed: 08/03/2018 Status: F Source: [place] 7:12 AM [facility] [place] [facility] Imaging Services [address] [place] [address] Shoulder One View MR#: [id number] Acct: [id number] Name: FOZIAPANDA R Rep #: [id number] : 1940 M 78 From: Dong Multani MD PCP: Man Cha MD Status: ADM IN Study: Shoulder One View Date of Exam: 08/03/18 Exam# [id number] Ordering Dr: Vick Faulkner MD STUDY: X-RAY [...] Dong Multani MD at 12:18 EST Tel [phone], Service support , CC: Man Cha MD; Vick Faulkner MD Housing Specialist: Signed PROTIME W/INR Collected: 08/03/2018 Status: F Source: NELSON FINGERSTICK 5:58 AM [facility] [place] TYPE CODE TESTS RESULT OUT OF RANGE REFERENCE UNITS LAB L9200.1001 11.9-14.4 SEC Normal PROTIME ISTAT 14.0 Result Comment: Reference Range 11.9 - 14.4 LAB L9200.2000 Normal INR ISTAT 1.20 Result Comment: Critical Value > 3.5 Performed By: #### L9200.0000 #### [facility] Point of Care [address] [place], [place] [address] BEDSIDE GLUCOSE Collected: 08/03/2018 Status: F Source: NELSON 5:56 AM [facility] [place] TYPE CODE TESTS RESULT OUT OF REFERENCE UNITS RANGE LAB L501.080 70-110 mg/dL High BEDSIDE GLU 146 Result Comment: MANAGEMENT OF PATIENT CARE PER NURSING PROTOCOL Performed By: #### L501.080 #### [facility] Point of Care [address] [place] [address] ALBUMIN, SERUM Collected: 07/27/2018 Status: F Source: [place] 12:13 PM [facility] [place] TYPE CODE TESTS RESULT OUT OF RANGE REFERENCE UNITS LAB L501.1800 3.2-5.0 g/dL Normal ALB 3.4 Performed By: #### L501.1800 #### [facility] [address] [place], [address] HISTORY AND PHYSICAL Observed: 07/22/2018 Status: F Source: [place] EXAM 10:54 PM [facility] [place] [facility] Medical Records Department [address] [place] [address] History and Physical 07/22/18 2253 MR#: [id number] Acct: [id number] Name: PANDA FLOYD Rep #: [id number] : 1940 78 From: Dennis Page PA-C PCP: Man Cha MD Status: PRE IN Y Location: [facility] History and Physical DATE OF SURGERY: 08/03/2018 [...] has been treated and seen by his propeller tester Dr. Chin. We have obtain surgical clearance from the propeller tester and able to stop the Coumadin 3-5 [...] Lymph 1.33 Performed By: #### L100.0100 #### [facility] [address] [place], [place], [address] BASIC METABOLIC Collected: 07/22/2018 Status: F Source: [place] PROFILE (BMP) 3:50 PM [facility] [...] GAP 9 Performed By: #### L500.2500 #### [facility] [address] [place], [address] HEMOGLOBIN A1C Collected: 07/22/2018 Status: F Source: [place] 3:50 PM [facility] [place] TYPE CODE TESTS RESULT OUT OF RANGE REFERENCE UNITS LAB L501.9985 4.2-6.3 % High HGB A1C 7.0 Performed By: #### L501.9985 #### [facility] [address] [place], [address] Observed: 07/22/2018 Status: F Source: [place] MRSA/SAID SCREEN 3:50 PM [facility] [place] MRSA/SAID SCRN S. AUREUS S. aureus Negative MRSA MRSA Negative Performed By: #### M100.651 #### [facility] [address] [place], [address] PROGRESS Observed: 07/12/2018 Status: COMPLETED Source: [place]LL[place] 2:06 PM [facility] REPOSITORY HNO ID: [id number] Author: Juan Chin Service: (none) Author Type: Physician Type: Progress Notes Filed: 07/12/2018 3:28 PM Note Text: PERTINENT CARDIAC HISTORY Abnormal EKG Hypertension Hyperlipidemia Diabetes PAF - C-V >2 ADHERENCE TO GUIDELINES ANAMARIA-I or ARB for HF with prior LVEF<40 (NQF 0081) - CRF ASA or Plavix for ASHD (NQF 0067) - N/A Beta armando for ASHD with prior MO or prior LVEF<40 (NQF 0070) - N/A Beta armando for HF with prior LVEF<40 (NQ 0083) - N/A ANAMARIA-I or ARB for ASHD with DM or prior LVEF<40 (NQ 0066) - N/A Statin therapy for ASHD [...] MD CNOV Observed: 07/12/2018 Status: COMPLETED Source: [place]LL[place] 1:30 PM [facility] REPOSITORY Office Visit (CAWSTR) PANDA FLOYD ([id number]) 1940 M Date Time Provider Department 07/12/18 [...] N/A Beta armando for ASHD with prior MO or prior LVEF<40 (NQF 0070) - N/A [...] Man Cha MD Referring Provider: JUAN CHIN [[id number]] Allergies As of Date: 07/12/2018 (No Known [...] [M25.*INVALID FOR*05/07/2011 Special Screening for Malignant Neoplasms, [place]*INVALID FOR*10/11/2009 POLYP COLON [D12.6] INVALID FOR*10/11/2009 NEURALGIA/NEURITIS NOS [[id number]] INVALID FOR* OBESITY NOS [E66.9] INVALID FOR* [...] EXTREMITY UPPER Observed: 06/21/2018 Status: F Source: S[place] WITHOUT CONTRA 12:47 PM [facility] [place] [facility] Imaging Services [address] [place] [address] Extremity Upper without Contra MR#: [id number] Acct: [id number] Name: PANDA FLOYD Rep #: [id number] : 1940 M 77 From: Maxim Espinoza MD PCP: Man Cha MD Status: REG CLI Study: Extremity Upper without Contra Date of Exam: 06/21/18 Exam# [id number] Ordering Dr: Vick Faulkner MD STUDY: CT [...] CC: Man Cha MD; Vick Faulkner MD Housing Specialist: Signed PROGRESS Observed: 05/12/2018 Status: COMPLETED Source: [place] 11:47 AM [facility] REPOSITORY HNO ID: [id number] Author: Juan Chin Service: (none) Author Type: Physician Type: Progress Notes Filed: 05/12/2018 4:33 PM Note Text: PERTINENT CARDIAC HISTORY Abnormal EKG Hypertension Hyperlipidemia Diabetes PAF - C-V >2 ADHERENCE TO GUIDELINES ANAMARIA-I or ARB for HF with prior LVEF<40 (NQF 0081) - CRF ASA or Plavix for ASHD (NQF 0067) - N/A Beta armando for ASHD with prior MO or prior LVEF<40 (NQF 0070) - N/A [...] MD CNOV Observed: 05/12/2018 Status: COMPLETED Source: [place] 11:15 AM [facility] REPOSITORY Office Visit (CAWSTR) PANDA FLOYD ([id number]) 1940 M Date Time Provider Department 05/12/18 11:15 AM JUAN CHINTR During your visit today, we recorded the [...] N/A Beta armando for ASHD with prior MO or prior LVEF<40 (NQF 0070) - N/A [...] the following areas and commit to making group home changes. EAT A WHOLE FOOD, PLANT BASED [...] in your area. Referring Provider: JUAN CHIN [[id number]] Allergies As of Date: 05/12/2018 (No Known [...] [M25.*INVALID FOR*05/07/2011 Special Screening for Malignant Neoplasms, [place]*INVALID FOR*10/11/2009 POLYP COLON [D12.6] INVALID FOR*10/11/2009 NEURALGIA/NEURITIS NOS [[id number]] INVALID FOR* OBESITY NOS [E66.9] INVALID FOR* [...] the following areas and commit to making vermin exterminator changes. EAT A WHOLE FOOD, PLANT BASED [...] 05/12/18 EKG1 Observed: 03/31/2018 Status: C Source: [place] 10:46 AM [facility] REPOSITORY NAME : PANDA FLOYD PID : [id number] : 1940 Gender : Male Race : [...] Also confirmed by JUAN CHIN MD ([id number]), film editor HERMILO BAL ([id number]) on 04/04/2018 12:11:57 PM Ventricular Rate : 83 BPM Atrial Rate : 83 BPM P-R Interval : 200 ms QRS Duration : 86 ms Q-T Interval : 426 ms QTC Calculation(Bezet) : 500 ms P Faunsdale : 81 degrees R Faunsdale : 14 degrees T Faunsdale : 32 degrees Test Reason : Location : 136 : [facility] Overread By : JUAN CHIN MD Edited By : HERMILO BAL Referred By : JUAN CHIN Acquired by : MAICOL SAMS Observed: 03/31/2018 Status: COMPLETED Source: JELL[place] 10:00 AM [facility] REPOSITORY Nurse Visit (CAWSTR) PANDA FLOYD ([id number]) 1940 M Date Time Provider Department 03/31/18 10:00 AM NURSE CARD ADMIN [facility] CAWSTR During your visit today, we recorded the following information about you: Referring Provider: JUAN CHIN [[id number]] Allergies As of Date: 03/31/2018 (No Known [...] [M25.*INVALID FOR*05/07/2011 Special Screening for Malignant Neoplasms, [place]*INVALID FOR*10/11/2009 POLYP COLON [D12.6] INVALID FOR*10/11/2009 NEURALGIA/NEURITIS NOS [[id number]] INVALID FOR* OBESITY NOS [E66.9] INVALID FOR* [...] OPERATIVE REPORT Observed: 03/22/2018 Status: F Source: [place] 1:53 PM [facility] [place] [facility] Medical Records Department [address] [place] [address] [place] [address] Operative Report 03/22/18 1350 MR#: [id number] Acct: [id number] Name: PANDA FLOYD Rep #: [id number] : 1940 77 From: Jp Sanabria MD PCP: Man Cha MD Status: REG [facility] Y Location: [facility] Problem List (1) Atrial fibrillation [...] apparent complications This note was generated with [employer] software. It may contain incorrect words, spelling, and punctuation that were not noted in checking the note before signing. 03/22/18 1353 <Electronically signed by Jp Sanabria MD> Date Jp Sanabria MD CC: Juan Chin MD; Jp Sanabria MD; Man Cha MD Signed OPERATIVE REPORT Observed: 03/22/2018 Status: F Source: [place] 1:08 PM [facility] [place] [facility] Medical Records Department [address] [place] [address] Operative Report 03/22/18 1304 MR#: [id number] Acct: [id number] Name: PANDA FLOYD Rep #: [id number] : 1940 77 From: Anish Dalton DO PCP: Man Cha MD Status: REG SDC Y Location: [facility] Operative Report Date of Procedure: 03/22/18 CONSCIOUS SEDATION REPORT DATE OF SERVICE: March 22, 2018 BRIEF HISTORY OF PRESENT ILLNESS: The patient is a 77-year-old male who presented to [facility] for elective outpatient cardioversion due to underlying [...] Visit 9xxxx: Other Procedure See Report - [id number] 03/22/18 1308 <Electronically signed by Anish Dalton DO> Date Anish Dalton DO CC: Anish Dalton D.O.; Jp Sanabria MD; Man Cha MD Signed PROTIME W/INR Collected: 03/22/2018 Status: F Source: [place] STON[place] 11:06 AM [facility] [place] TYPE CODE TESTS RESULT OUT OF REFERENCE UNITS RANGE LAB L9200.1001 11.9-14.4 SEC High PROTIME ISTAT 23.7 Result Comment: Reference Range 11.9 - 14.4 LAB L9200.2000 Normal INR ISTAT 2.00 Result Comment: Critical Value > 3.5 Performed By: #### L9200.0000 #### [facility] Point of Care [address] [place] [address] CNNURSE Observed: 03/16/2018 Status: COMPLETED Source: GONZALEZ 3:30 PM [facility] REPOSITORY Nurse Visit (CAWSTR) PANDA FLOYD ([id number]) 1940 M Date Time Provider Department 03/16/18 3:30 PM NURSE CARD ADMIN [facility] CAWSTR During your visit today, we recorded the following information about you: Stacey Duarte MA 04/08/2018 1:21 PM Signed EKG completed and given to Dr Chin for review. Stacey Duarte MA Referring Provider: JUAN CHIN [[id number]] Allergies As of Date: 03/16/2018 (No Known Allergies) Date Reviewed: 03/16/2018 Reviewed by: Marilu Burdick Ma - Fully Assessed Reason for Visit: Allied Health Visit [5] Visit Diagnosis:PAF (paroxysmal atrial fibrillation) (HCC) [I48.0] Order(s):ECG COMPLETE W INTERPRETATION [ECG01] Order #: [id number] Prescriptions as of 03/16/2018 Sig: WARFARIN 3 [...] [M25.*INVALID FOR*05/07/2011 Special Screening for Malignant Neoplasms, [place]*INVALID FOR*10/11/2009 POLYP COLON [D12.6] INVALID FOR*10/11/2009 NEURALGIA/NEURITIS NOS [[id number]] INVALID FOR* OBESITY NOS [E66.9] INVALID FOR* [...] 04/08/18 PROTIME Collected: 03/16/2018 Status: F Source: [place] 2:14 PM [facility] REPOSIT[facility] TYPE CODE TESTS RESULT OUT OF RANGE REFERENCE UNITS LAB PSEC 9.7-13.0 sec High PT Sec 20.6 LAB INR 0.9-1.3 High PT INR 2.1 Result Comment: Vitamin K Antagonist (VKA) Therapeutic Range: INR 2 to 3 (Target INR of 2.5) Note: For patients treated with VKA drugs, such as warfarin, the [place] [employer]icians 2012 Guideline recommends [...] WING, et al. Chest 2012, 141:7S-47S Devaughn ROGEL, et al. [facility] 2017, 70: 252-289 Performed By: #### PT, CBC, BMP, MG1 #### [facility] [address] [place], [place] [address] CBC Collected: 03/16/2018 Status: F Source: [place] 2:14 PM [facility] REPOSITORY TYPE CODE TESTS [...] CBC, BMP, MG1 #### [facility] [address] [place], [place] [address] BASIC METABOLIC PANL Collected: 03/16/2018 Status: F Source: [place] 2:14 PM [facility] REPOSITORY TYPE CODE TESTS RESULT OUT OF REFERENCE UNITS RANGE LAB GLU 74-99 mg/dL High Glucose 140 Result Comment: The [place] Diabetes Association (ADA) provides guidance for cutoff [...] Standards of Medical Care in Diabetes 2016, [place] Diabetes Association. Diabetes Care. 2016.39(Suppl 1). LAB [...] CBC, BMP, MG1 #### [facility] [employer] [address] [place], [place] [address] MAGNESIUM Collected: 03/16/2018 Status: F Source: [place] 2:14 PM [facility] REPOSITORY TYPE CODE TESTS RESULT OUT OF REFERENCE UNITS RANGE LAB MG 1.7-2.3 mg/dL Magnesium 1.8 Performed By: #### PT, CBC, BMP, MG1 #### [facility] [employer] [address] [place], [place] [address] EKG1 Observed: 03/16/2018 Status: F Source: [place] 1:49 PM [facility] REPOSITORY NAME : PANDA FLOYD PID : [id number] : 1940 Gender : Male Race : [...] ms QTC Calculation(Bezet) : 441 ms R Faunsdale : 34 degrees T Faunsdale : -13 degrees Test Reason : Location : 136 : [facility] Overread By : JUAN CHIN MD Edited By : JUAN CHIN MD Referred By : Enzo CHIN Acquired by : JOI, EKG1 Observed: 03/16/2018 Status: F Source: JELL[place] 1:48 PM [facility] REPOSITORY NAME : PANDA FLOYD PID : [id number] : 1940 Gender : Male Race : [...] ms QTC Calculation(Bezet) : 471 ms R Faunsdale : 30 degrees T Faunsdale : -8 degrees Test Reason : Location : 136 : [facility] Overread By : JUAN CHIN MD Edited By : JUAN CHIN MD Referred By : Enzo CHIN Acquired by : JOI, PROGRESS Observed: 03/16/2018 Status: COMPLETED Source: [place]LL[place] 1:42 PM [facility] REPOSITORY HNO ID: [id number] Author: Juan Chin Service: (none) Author Type: Physician Type: Progress Notes Filed: 03/16/2018 5:13 PM Note Text: PERTINENT CARDIAC HISTORY Abnormal EKG Hypertension Hyperlipidemia Diabetes PAF ADHERENCE TO GUIDELINES ANAMARIA-I or ARB for HF with prior LVEF<40 (NQF 0081) - CRF ASA or Plavix for ASHD (NQF 0067) - N/A Beta armando for ASHD with prior MO or prior LVEF<40 (NQF 0070) - N/A [...] sinus rhythm. He will be referred to [facility] for cardioversion. He has declined [...] MD CNOV Observed: 03/16/2018 Status: COMPLETED Source: [place] 1:15 PM [facility] REPOSITORY Office Visit (CAWSTR) PANDA FLOYD ([id number]) 1940 M Date Time Provider Department 03/16/18 1:15 PM JUAN CHINTR During your visit today, we recorded the [...] N/A Beta armando for ASHD with prior MO or prior LVEF<40 (NQF 0070) - N/A [...] sinus rhythm. He will be referred to [facility] for cardioversion. He has declined [...] the following areas and commit to making group home changes. EAT A WHOLE FOOD, PLANT BASED [...] in your area. Referring Provider: JUAN CHIN [[id number]] Allergies As of Date: 03/16/2018 (No Known Allergies) Date Reviewed: 03/16/2018 Reviewed by: Marilu Burdick Ma - Fully Assessed Reason for Visit: Established Patient [175] Cmt: 1 month follow up AF/Hypertension Primary Visit Diagnosis:PAF (paroxysmal atrial fibrillation) (HCC) [I48.0] Order(s):CBC [SQCBC] Order #: [id number] FUTURE MAGNESIUM BLD [SQMG1] Order #: [id number] FUTURE BASIC METABOLIC PNL [SQBMP] Order #: [id number] FUTURE PROTHROMBIN TIME/PT [SQPT] Order #: [id number] FUTURE ECG COMPLETE W INTERPRETATION [ECG01] Order #: [id number] FUTURE Prescriptions as of 03/16/2018 Sig: WARFARIN [...] [M25.*INVALID FOR*05/07/2011 Special Screening for Malignant Neoplasms, [place]*INVALID FOR*10/11/2009 POLYP COLON [D12.6] INVALID FOR*10/11/2009 NEURALGIA/NEURITIS NOS [[id number]] INVALID FOR* OBESITY NOS [E66.9] INVALID FOR* [...] the following areas and commit to making group home changes. EAT A WHOLE FOOD, PLANT BASED [...] 03/16/18 PROGRESS Observed: 02/10/2018 Status: COMPLETED Source: [place] 8:57 AM [facility] REPOSITORY HNO ID: [id number] Author: Juan Chin Service: (none) Author Type: Physician Type: Progress Notes Filed: 02/10/2018 11:03 AM Note Text: PERTINENT CARDIAC HISTORY Abnormal EKG Hypertension Hyperlipidemia Diabetes PAF ADHERENCE TO GUIDELINES ANAMARIA-I or ARB for HF with prior LVEF<40 (NQF 0081) - CRF ASA or Plavix for ASHD (NQF 0067) - N/A Beta armando for ASHD with prior MO or prior LVEF<40 (NQF 0070) - N/A [...] MD CNOV Observed: 02/10/2018 Status: COMPLETED Source: [place] 8:30 AM [facility] REPOSITORY Office Visit (CAWSTR) PANDA FLOYD ([id number]) 1940 M Date Time Provider Department 02/10/18 [...] N/A Beta armando for ASHD with prior MO or prior LVEF<40 (NQF 0070) - N/A [...] Man Cha MD Referring Provider: JUAN CHIN [[id number]] Allergies As of Date: 02/10/2018 (No Known Allergies) Date Reviewed: 02/10/2018 Reviewed by: Alfonso Elliott RN - Fully Assessed Reason for Visit: Recheck [92] Primary Visit Diagnosis:Hypertension, essential [I10] Other Visit Diagnosis:PAF (paroxysmal atrial fibrillation) (HCC) [I48.0] Order(s):furosemide (LASIX) 20 mg tabletTake 1 tablet by mouth once daily. As neededDisp: Rfl: ECG COMPLETE W INTERPRETATION [ECG01] Order #: [id number] FUTURE Prescriptions as of 02/10/2018 Sig: WARFARIN [...] [M25.*INVALID FOR*05/07/2011 Special Screening for Malignant Neoplasms, [place]*INVALID FOR*10/11/2009 POLYP COLON [D12.6] INVALID FOR*10/11/2009 NEURALGIA/NEURITIS NOS [[id number]] INVALID FOR* OBESITY NOS [E66.9] INVALID FOR* [...] BLOOD DIAG. Collected: 01/18/2018 Status: F Source: [place] 9:59 AM [facility] REPOSITORY TYPE CODE TESTS RESULT OUT OF REFERENCE UNITS RANGE LAB OBSRCE Occult Stool Blood Source: LAB OBD Occult Negative Blood Diag. Performed By: #### OBDX #### [facility] [address] [place], [place] [address] CBC Collected: 01/07/2018 Status: F Source: [place] 3:24 PM [facility] REPOSITORY TYPE CODE TESTS [...] CBC, PT, BMP #### [facility] [address] [place], [place] [address] PROTIME Collected: 01/07/2018 Status: F Source: [place] 3:24 PM [facility] REPOSITORY TYPE CODE TESTS RESULT OUT OF RANGE REFERENCE UNITS LAB PSEC 9.7-13.0 sec PT Sec 10.9 LAB INR 0.9-1.3 PT INR 1.1 Result Comment: Vitamin K Antagonist (VKA) Therapeutic Range: INR 2 to 3 (Target INR of 2.5) Note: For patients treated with VKA drugs, such as warfarin, the [place] [employer] 2012 Guideline recommends [...] Chest 2012, 141:7S-47S Devaughn RA, et al. [facility] 2017, 70: 252-289 Performed By: #### CBC, PT, BMP #### [facility] [employer] [address] [place], [place] [address] BASIC METABOLIC PANL Collected: 01/07/2018 Status: F Source: JELLICO 3:24 PM [facility] [place] REPOSITORY TYPE CODE TESTS RESULT OUT OF REFERENCE UNITS RANGE LAB GLU 74-99 mg/dL High Glucose 145 Result Comment: The [place] Diabetes Association (ADA) provides guidance for cutoff [...] Standards of Medical Care in Diabetes 2016, [place] Diabetes Association. Diabetes Care. 2016.39(Suppl 1). LAB [...] CBC, PT, BMP #### [facility] [address] [place], [place] [address] PROGRESS Observed: 01/07/2018 Status: COMPLETED Source: JELLICO 2:52 PM CLINIC OTHER CAMPUS REPOSITORY HNO ID: [id number] Author: Juan Chin Service: (none) Author Type: Physician Type: Progress Notes Filed: 01/07/2018 5:48 PM Note Text: PERTINENT CARDIAC HISTORY Abnormal EKG Hypertension Hyperlipidemia Diabetes PAF ADHERENCE TO GUIDELINES ANAMARIA-I or ARB for HF with prior LVEF<40 (NQF 0081) - N/A ASA or Plavix for ASHD (NQF 0067) - N/A Beta armando for ASHD with prior MO or prior LVEF<40 (NQF 0070) - N/A [...] TUNNEL bilateral - COLONOSCOP W/ OR W/O [facility] SPEC 12/04/11 repeat 5 years - COLONOSCOPY [...] file. CNOV Observed: 01/07/2018 Status: COMPLETED Source: JELLICO 2:00 PM [facility]IN[facility] OTHER CAMPUS REPOSITORY Office Visit (AGCARDWST) PANDA FLOYD ([id number]) 1940 M Date Time Provider Department 01/07/18 2:00 PM JUAN CHINARDWSRadha During your visit today, we recorded the [...] N/A Beta armando for ASHD with prior MO or prior LVEF<40 (NQF 0070) - N/A [...] TUNNEL bilateral - COLONOSCOP W/ OR W/O [facility] SPEC 12/04/11 repeat 5 years - COLONOSCOPY [...] the following areas and commit to making vermin exterminator changes. EAT A WHOLE FOOD, PLANT BASED [...] management.Philly Antunez LPN Referring Provider: JUAN CHIN [[id number]] Allergies As of Date: 01/07/2018 (No Known Allergies) Date Reviewed: 01/07/2018 Reviewed by: Rocael (Rn) Rosalind - Fully Assessed Reason for Visit: New Patient [172] Cmt: new onset a-fib - former polinski patient Primary Visit Diagnosis:PAF (paroxysmal atrial fibrillation) (HCC) [I48.0] Other Visit Diagnoses:Essential hypertension [I10] Anemia due to chronic blood loss [D50.0] Order(s):CBC [SQCBC] Order #: [id number] FUTURE PROTHROMBIN TIME/PT [SQPT] Order #: [id number] FUTURE OCCULT BLD EXAM-DIAG [SQOB] Order #: [id number] FUTURE BASIC METABOLIC PNL [SQBMP] Order #: [id number] FUTURE warfarin (COUMADIN) 5 mg tabletTake 1 [...] [M25.*INVALID FOR*05/07/2011 Special Screening for Malignant Neoplasms, [place]*INVALID FOR*10/11/2009 POLYP COLON [D12.6] INVALID FOR*10/11/2009 NEURALGIA/NEURITIS NOS [IGK1858] INVALID FOR* OBESITY NOS [E66.9] INVALID FOR* [...] the following areas and commit to making group home changes. EAT A WHOLE FOOD, PLANT BASED [...] ECHOCARDIOGRAM COMPLETE Observed: 12/24/2017 Status: F Source: SAVANNAH 2:39 PM [facility] [place] [facility] Cardiovascular Services [address] [place] [address] Echo Complete 12/24/17 1303 MR#: [id number] Acct: [id number] Name: PANDA FLOYD Rep #: [id number] : 1940 77 From: Jp Sanabria MD Attending Dr: Man Cha Status: REG CLI Ordering Dr: Man Cha MD Date: 12/24/17 Location: [facility] Sex: M C Admitted: Reason [...] Dictated: 12/24/17 1303 Date Transcribed: 12/24/17 1439 Housing Specialist: Signed COMPREHENSIVE METABOLIC Collected: 11/30/2017 Status: F [...] By: #### L500.4050, L501.5200, L501.9520, L506.0400 #### [facility] [address] [facility] [place], [place], [address] MAGNESIUM Collected: 11/30/2017 Status: F Source: [place]EL[place] 1:49 PM [facility] [place] TYPE CODE TESTS RESULT OUT OF RANGE REFERENCE UNITS LAB L501.5200 1.6-2.6 mg/dL Normal MG 1.9 Result Comment: Please note revised Magnesium reference range effective 2017. Performed By: #### L500.4050, L501.5200, L501.9520, L506.0400 #### [facility] [address] [facility] [place], [address] THYROID STIM HORMONE Collected: 11/30/2017 Status: F Source: NELSON (TSH) 1:49 PM [facility] [place] TYPE CODE TESTS RESULT OUT OF RANGE REFERENCE UNITS LAB L501.9520 0.358-3.74 uIU/mL Normal TSH 3.48 Performed By: #### L500.4050, L501.5200, L501.9520, L506.0400 #### [facility] [address] [place], [address] T4 FREE DIRECT Collected: 11/30/2017 Status: F Source: SAVANNAH 1:49 PM [facility] [place] TYPE CODE TESTS RESULT OUT OF RANGE REFERENCE UNITS LAB L506.0400 0.76-1.46 ng/dL Normal T4 FREE 1.08 DIRECT Performed By: #### L500.4050, L501.5200, L501.9520, L506.0400 #### [facility] [address] [facility] 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 Will remove Dr. Cheney as PCP. Ivory Love MA PROGRESS Observed: 11/23/2017 Status: COMPLETED Source: JELLICO 12:06 PM [facility] REPOSITORY HNO ID: [id number] Author: Giancarlo Hayden Service: (none) Author Type: Nurse Practitioner Type: Progress Notes Filed: 11/29/2017 9:09 AM Note Text: Labs filed. 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 Giancarlo Hayden APRN.REJI Love MA 11/29/2017 9:09 AM Signed Patient [...] [Z12.11] Order(s):COMP METABOLIC PANEL [SQCMP] Order #: [id number] FUTURE LIPID PANEL BASIC [SQLIPB] Order #: [id number] FUTURE HGB A1C [NMVQP1G] Order #: [id number] FUTURE FECAL OCCULT BLOOD TEST [SQIFOBT] Order #: [id number] FUTURE ALBUMIN RANDOM URINE [SQUALBR] Order #: [id number] FUTURE Prescriptions as of 11/23/2017 Sig: METFORMIN [...] [M25.*INVALID FOR*05/07/2011 Special Screening for Malignant Neoplasms, [place]*INVALID FOR*10/11/2009 POLYP COLON [D12.6] INVALID FOR*10/11/2009 NEURALGIA/NEURITIS NOS [FPA3580] INVALID FOR* OBESITY NOS [E66.9] INVALID FOR* [...] PILAR PEP Performed By: #### L503.6620 #### [facility] [address] [place], [address] BASIC METABOLIC Collected: 09/21/2017 Status: F Source: [...] 8 Performed By: #### L500.2500, L501.9520 #### [facility] [address] [address] [place], [place], [address] THYROID STIM HORMONE Collected: 09/21/2017 Status: F Source: SAVANNA[place] (TSH) 2:56 PM [facility] [place] TYPE CODE TESTS RESULT OUT OF RANGE REFERENCE UNITS LAB L501.9520 0.358-3.74 uIU/mL Normal TSH 2.13 Performed By: #### L500.2500, L501.9520 #### [facility] [address] [place], [place], [address] ALLERGIES ALLERGIES DATE TYPE / CODE NAME / CODE REACTION SEVERITY SOURCE 09/10/2018 Drug No Known Unknown [facility] Allergy/416 Allergies/X96850 Hospital 595835(SNOM 0388(RXNORM) Repository ED CT) Drug NO KNOWN [facility] Class/99891 ALLERGIES Other [place] 1003(SNOMED Repository CT) NG/19267492 NO KNOWN [facility] 6([employer] CT) Repository ENCOUNTERS ENCOUNTERS ADMIT/DISCHARGE ACCOUNT NUMBER ADMITTING ENCOUNTER LOCATION SOURCE CLASS 09/13/2018 [id number] Ambulatory [facility] ding:CT Repository 09/10/2018/09/10/19 [id number] Emergency [address] ding:ED Repository 08/08/2018 [id number] Ambulatory BMSBuilding: [facility] Repository 08/06/2018/08/09/20 [id number] Nima Gamez [facility] Inpatient [address] ding:TCURoom Repository : EHD73Dml: 1 08/03/2018 [id number] Kaushik, Ambulatory BMSBuilding: [place] BMS.[facility] Repository 08/03/2018 [id number] Kaushik, Ambulatory BMSBuilding: [place] BMS.[facility] Repository 08/03/2018 [id number] Kaushik, Ambulatory BMSBuilding: [place] BMS.[facility] Repository 08/03/2018 [id number] Kaushik, Ambulatory BMSBuilding: [place] BMS.[facility] Repository 08/03/2018/08/06/20 [id number] Kaushik, Inpatient [address] ding:PJ4Lgxd Repository : HI961Onw: 1 07/27/2018 [id number] Ambulatory [facility] ding:LAB.FUT Repository URE 07/22/2018 [id number] Ambulatory BMSBuilding: [facility] Repository 07/12/2018/07/13/20 [id number] Ambulatory [address] Repository 06/21/2018 [id number] Ambulatory [facility] ding:CT Repository 05/12/2018/05/13/20 [id number] Ambulatory [address] Repository 03/31/2018/03/31/20 [id number] Ambulatory [address] Repository 03/22/2018 [id number] Ambulatory [facility] ding:CLSP Repository 03/22/2018 [id number] Ambulatory BMSBuilding: [place] [facility] [place] 03/22/2018 [id number] Ambulatory BMSBuilding: [place] BMS.[facility] Repository 03/22/2018 [id number] Ambulatory BMSBuilding: [facility] Repository 03/16/2018/03/17/20 [id number] Ambulatory [address] Main [place] Repository 03/16/2018/03/16/20 [id number] Ambulatory [address] [place] Repository 03/16/2018/03/16/20 [id number] Ambulatory [address] [place] Repository 02/10/2018/02/11/20 [id number] Ambulatory [address] [place] Repository 02/10/2018 [id number] Ambulatory [facility] MEDICAL Repository CENTERBuildi ng:CAGWS 01/18/2018/01/19/20 [id number] Ambulatory [address] [place] Repository 01/07/2018/01/08/20 [id number] Ambulatory [address] Repository 01/07/2018/01/08/20 [id number] Ambulatory [address] Other [place] Repository 01/07/2018/01/08/20 [id number] Ambulatory [address] MEDICAL Repository CENTERBuildi ng:[facility] 12/24/2017 [id number] Ambulatory [facility] ding:[facility] Repository 12/24/2017 [id number] Ambulatory BMSBuilding: [facility] Repository 11/30/2017 [id number] Ambulatory [facility] ding:BFAB Repository 10/07/2017 [id number] Ambulatory [facility] ding:[facility] Repository 10/07/2017 [id number] Ambulatory BMSBuilding: [facility] Repository 09/21/2017 [id number] Ambulatory [facility] ding:BFHLAB Repository PAYERS PAYERS ENCOUNTER GUARANTOR PAYER SUBSCRIBER SOURCE 09/13/2018 PANDA Richard Primary PANDA [id number] Insurance:MEDICARE FOZIADOB: [facility] PART A BPolicy Number: [id number] [id number] Repository [address]4594Hrr: (330) Date:2018-09-13 [phone] () 09/13/2018 Secondary PANDA R [place] Insurance:HUMANA KEENERDOB: Community COMMERCIALPolicy [id number] Hospital Number: Repository [id number] Date:8219-42-18CE [address] [place] [address]EK: 09/13/2018 Tertiary NOT GIVENUNK [place] Insurance:SELF PAY [facility] Hospital Number: Effective Repository Date:2018-09-13 09/10/2018 PANDA R Primary PANDA R [place] [id number] Insurance:MEDICARE KEENERDOB: Community [place] PART A BPolicy Number: [id number] [id number] Repository [address]Xuw: 330) Date:2018-09-10 [phone] () 09/10/2018 Secondary PANDA R [place] Insurance:HUMANA KEENERDOB: [facility] [id number] Hospital Number: Repository [id number] Date:5886-45-75LG [address] [place] [address]RQ: 09/10/2018 Tertiary NOT GIVENUNK [place] Insurance:SELF PAY [facility] Hospital Number: Effective Repository Date:2018-09-10 08/08/2018 PANDA R Primary PANDA R [place] [id number] Insurance:MEDICARE KEENERDOB: Community [place] PART A BPolicy Number: [id number], [place] [id number] Repository [address]Bil: (330) Date:2018-08-06 [phone] () 08/08/2018 Secondary PANDA R [place] Insurance:HUMANA KEENERDOB: [facility] [id number] Hospital Number: Repository [id number] Date:2014-82-61JO [address] [place] [address]KK: 08/08/2018 Tertiary NOT GIVENUNK [place] Insurance:SELF PAY [facility] Hospital Number: Effective Repository Date:2018-08-08 08/06/2018 PANDA R Primary PANDA R [place] [id number] Insurance:MEDICARE KEENERDOB: Community [place] PART A BPolicy Number: [id number], [place] [id number] Repository [address]Bcj: 330) Date:2018-08-06 [phone] () 08/06/2018 Secondary PANDA R [place] Insurance:HUMANA KEENERDOB: [facility] [id number] Hospital Number: Repository [id number] Date:6297-49-44[address] [address]OG: 08/06/2018 Tertiary NOT GIVENUNK [place] Insurance:SELF PAY [facility] Hospital Number: Effective Repository Date:2018-08-06 08/03/2018 PANDA R Primary PANDA R [place] [id number] Insurance:MEDICARE KEENERDOB: Community [place] PART A BPolicy Number: [id number], [place] [id number] Repository 226[address]Scg: 330) Date:2018-06-21 [phone] () 08/03/2018 Secondary PANDA R [place] Insurance:HUMANA KEENERDOB: [facility] [id number] Hospital Number: Repository [id number] Date:8420-40-33CL[address] [address]HX: 08/03/2018 Tertiary NOT GIVENUNK [place] Insurance:SELF PAY [facility] Hospital Number: Effective Repository Date:2018-08-03 08/03/2018 PANDA R Primary PANDA R [place] [id number] Insurance:MEDICARE KEENERDOB: Community [place] PART A BPolicy Number: [id number], [place] [id number] Repository [address]11[address]Ghl: (684) Date:2018-06-21 [phone] () 08/03/2018 Secondary PANDA R [place] Insurance:HUMANA KEENERDOB: [facility] [id number] Hospital Number: Repository [id number] Date:2101-95-18LG [address] [place] [address]UQ: 08/03/2018 Tertiary NOT GIVENUNK [place] Insurance:SELF PAY [facility] Hospital Number: Effective Repository Date:2018-08-03 08/03/2018 PANDA R Primary PANDA R [place] [id number] Insurance:MEDICARE KEENERDOB: Community [place] PART A BPolicy Number: [id number], [place] [id number] Repository [address]Fnq: 330) Date:2018-06-21 [phone] () 08/03/2018 Secondary PANDA R [place] Insurance:HUMANA KEENERDOB: [facility] [id number] Hospital Number: Repository [id number] Date:1845-61-16PA [address] [place] [address]FX: 08/03/2018 Tertiary NOT GIVENUNK [place] Insurance:SELF PAY [facility] Hospital Number: Effective Repository Date:2018-08-03 08/03/2018 PANDA R Primary PANDA R [place] [id number] Insurance:MEDICARE KEENERDOB: Community [place] PART A BPolicy Number: [id number], [place] [id number] Repository [address]Eez: (330) Date:2018-06-21 [phone] () 08/03/2018 Secondary PANDA R [place] Insurance:HUMANA KEENERDOB: [facility] [id number] Hospital Number: Repository [id number] Date:0664-88-89BI [address] [place] [address]MC: 08/03/2018 Tertiary NOT GIVENUNK [place] Insurance:SELF PAY [facility] Hospital Number: Effective Repository Date:2018-08-03 08/03/2018 PANDA R Primary PANDA R [place] [id number] Insurance:MEDICARE KEENERDOB: Community [place] PART A BPolicy Number: [id number], [place] [id number] Repository [address]Dws: (330) Date:2018-06-21 [phone] () 08/03/2018 Secondary PANDA R [place] Insurance:HUMANA KEENERDOB: [facility] [id number] Hospital Number: Repository [id number] Date:1140-89-87ID [address] [place] [address]FB: 08/03/2018 Tertiary NOT GIVENUNK [place] Insurance:SELF PAY [facility] Hospital Number: Effective Repository Date:2018-06-21 07/27/2018 PANDA R Primary PANDA R [place] [id number] Insurance:MEDICARE KEENERDOB: Community [place] PART A BPolicy Number: [id number], [place] [id number] Repository [address]Ppa: 330) Date:2018-07-27 [phone] () 07/27/2018 Secondary PANDA R [place] Insurance:HUMANA KEENERDOB: [facility] [id number] Hospital Number: Repository [id number] Date:6608-98-41TL [address] [place] [address]DC: 07/27/2018 Tertiary NOT GIVENUNK [place] Insurance:SELF PAY [facility] Hospital Number: Effective Repository Date:2018-07-27 07/22/2018 PANDA R Primary PANDA R [place] [id number] Insurance:MEDICARE KEENERDOB: Community [place] PART A BPolicy Number: [id number], [place] [id number] Repository [address]Ztm: (330) Date:2018-07-22 [phone] () 07/22/2018 Secondary PANDA R [place] Insurance:HUMANA KEENERDOB: [facility] COMMERCIALPolicy [id number] Hospital Number: Repository [id number] Date:2851-96-55CY [address] [place] [address]JA: 07/22/2018 Tertiary NOT GIVENUNK [place] Insurance:SELF PAY [facility] Hospital Number: Effective Repository Date:2018-07-22 06/21/2018 PANDA R Primary PANDA R [place] [id number] Insurance:MEDICARE KEENERDOB: Community [place] PART A BPolicy Number: [id number], [place] [id number] Repository 258[address]Bfy: (827) Date:2018-06-16 [phone] () 06/21/2018 Secondary PANDA R [place] Insurance:HUMANA KEENERDOB: [facility] COMMERCIALPolic [id number] Hospital Number: Repository [id number] Date:6899-15-69WF [address] [address]UE: 06/21/2018 Tertiary NOT GIVENUNK [place] Insurance:SELF PAY [facility] Hospital Number: Effective Repository Date:2018-06-16 03/22/2018 PANDA R Primary PANDA R [place] [id number] Insurance:MEDICARE KEENERDOB: Community [place] PART A BPolicy Number: [id number], [place] [id number] Repository [address]Jdc: (245) Date:2018-03-18 [phone] () 03/22/2018 Secondary PANDA R [place] Insurance:HUMANA KEENERDOB: Community COMMERCIALPolicy [id number] Hospital Number: Repository [id number] Date:1095-39-51MN [address] [place] [address]NB: 03/22/2018 Tertiary NOT GIVENUNK [place] Insurance:SELF PAY [facility] Hospital Number: Effective Repository Date:2018-03-18 03/22/2018 PANDA R Primary PANDA R [place] [id number] Insurance:MEDICARE KEENERDOB: Community [place] PART A BPolicy Number: [id number], [place] [id number] Repository [address]Aos: (330) Date:2018-03-18 [phone] () 03/22/2018 Secondary PANDA R [place] Insurance:HUMANA KEENERDOB: [facility] [id number] Hospital Number: Repository [id number] Date:4323-55-32AT [address] [place] [address]IM: 03/22/2018 Tertiary NOT GIVENUNK [place] Insurance:SELF PAY [facility] Hospital Number: Effective Repository Date:2018-03-22 03/22/2018 PANDA R Primary PANDA R [place] [id number] Insurance:MEDICARE KEENERDOB: Community [place] PART A BPolicy Number: [id number], [place] [id number] Repository [address]Bkx: (330) Date:2018-03-18 [phone] () 03/22/2018 Secondary PANDA R [place] Insurance:HUMANA KEENERDOB: [facility] [id number] Hospital Number: Repository [id number] Date:0362-89-00ET [address] [place] [address]EY: 03/22/2018 Tertiary NOT GIVENUNK [place] Insurance:SELF PAY [facility] Hospital Number: Effective Repository Date:2018-03-22 03/22/2018 PANDA R Primary PANDA R [place] [id number] Insurance:MEDICARE KEENERDOB: Community [place] PART A BPolicy Number: [id number], [place] [id number] Repository [address]Qes: 330) Date:2018-03-18 [phone] () 03/22/2018 Secondary PANDA R [place] Insurance:HUMANA KEENERDOB: [facility] [id number] Hospital Number: Repository [id number] Date:9079-15-72YQ [address] [place] [address]IZ: 03/22/2018 Tertiary NOT GIVENUNK [place] Insurance:SELF PAY [facility] Hospital Number: Effective Repository Date:2018-03-22 02/10/2018 PANDA R Primary PANDA R [facility] KEENERDOB: Insurance:MEDICARE A KEENERDOB: [facility] System AND BPolicy Number: [id number] Repository [facility] [id number] [place], [place] Date: [address]Jxj: () 02/10/2018 Secondary PANDA R [facility] Insurance:HUMANA KEENERDOB: [facility] MEDICARE [id number] Repository SUPPLEMENTPolicy Number: [id number] Date: 01/07/2018 PANDA R Primary PANDA R [facility] KEENERDOB: Insurance:MEDICARE A KEENERDOB: [facility] AND BPolicy Number: [id number] Repository [facility] [id number] [place], [place] Date: [address]Tbt: () 01/07/2018 Secondary PANDA R [facility] Insurance:HUMANA KEENERDOB: [facility] MEDICARE [id number] Repository SUPPLEMENTPolicy Number: [id number] Date: 12/24/2017 Panda R Primary Panda R [place] [id number] Insurance:MEDICARE KeenerDOB: [facility] [place] PART A BPolicy Number: [id number] [place], [place] [id number] Repository 54[address]Hks: 330) Date:2017-12-02 [phone] () 12/24/2017 Secondary Panda R [place] Insurance:HUMANA KeenerDOB: [facility] [id number] Hospital Number: Repository [id number] Date:2459-94-78VA [address] [address]IN: 12/24/2017 Tertiary NOT GIVENUNK [place] Insurance:SELF PAY [facility] Hospital Number: Effective Repository Date:2017-12-02 12/24/2017 Panda R Primary Panda R [place] [id number] Insurance:MEDICARE KeenerDOB: Community [place] PART A BPolicy Number: [id number], [place] [id number] Repository [address]Lca: (330) Date:2017-12-02 [phone] (HP) 12/24/2017 Secondary Panda R [place] Insurance:HUMANA KeenerDOB: [facility] [id number] Hospital Number: Repository [id number] Date:1848-83-94AB [place] [address]WP: 12/24/2017 Tertiary NOT GIVENUNK [place] Insurance:SELF PAY [facility] Hospital Number: Effective Repository Date:2017-12-24 11/30/2017 Panda R Primary Panda R [place] [id number] Insurance:MEDICARE KeenerDOB: Community [place] PART A BPolicy Number: [id number], [place] [id number] Repository 15[address]Xkc: 330) Date:2017-11-30 [phone] () 11/30/2017 Secondary Panda R [place] Insurance:HUMANA KeenerDOB: [facility] [id number] Hospital Number: Repository [id number] Date:3648-91-39[place] [address]WP: 11/30/2017 Tertiary NOT GIVENUNK [place] Insurance:SELF PAY [facility] Hospital Number: Effective Repository Date:2017-11-30 10/07/2017 Panda R Primary Panda R [place] [id number] Insurance:MEDICARE KeenerDOB: Community [place] PART A BPolicy Number: [id number], [place] [id number] Repository [address]Fae: (330) Date:2017-09-22 [phone] (HP) 10/07/2017 Secondary Panda R [place] Insurance:HUMANA KeenerDOB: [facility] [id number] Hospital Number: Repository [id number] Date:9916-49-19HB [place] [id number]: 10/07/2017 Tertiary NOT GIVENUNK [place] Insurance:SELF PAY [facility] Number: Effective Repository Date:2017-09-22 10/07/2017 Panda R Primary Panda R [place] [id number] Insurance:MEDICARE KeenerDOB: Community Us[place] PART A BPolicy Number: [id number] [id number] Repository [address]Tpo: ([phone] Date:2017-09-22 [phone] (HP) 10/07/2017 Secondary Panda R [place] Insurance:HUMANA [id number] Number: Repository [id number] Date:[id number] [id number]: 10/07/2017 Tertiary NOT GIVENUNK [place] Insurance:SELF PAY [facility] Number: Effective Repository Date:2017-10-07 09/21/2017 Panda R Primary Panda R Winst[place] [id number] Insurance:MEDICARE KeenerDOB: Community Us[place] PART A BPolicy Number: [id number], [place] [id number] Repository [id number]: [phone] Date:2017-09-21 [phone] (HP) 09/21/2017 Secondary Panda R [place] Insurance:HUMANA KeenerDOB[facility] [id number] Number: Repository [id number] Date:[id number] [place] [id number]: 09/21/2017 Tertiary NOT GIVENUNK [place] Insurance:SELF PAY [facility] Number: Effective Repository Date:2017-09-21
== END 2018-09-10 09:51 | disposition home or self-care (01) ==
PROVIDERS: Emergency Provider Emergency Medicine; Family Provider Family Medicine; PCP Family Medicine
DX: M16.0 Bilateral primary osteoarthritis of hip (principal); M51.16 Intervertebral disc disorders with radiculopathy, lumbar region; M47.896 Other spondylosis, lumbar region; Z96.612 Presence of left artificial shoulder joint
CPT/HCPCS: 72100; 73502; 96372; 99282

== ENCOUNTER → 2018-09-13 11:42 | Outpatient (CLI) | payer MEDICARE, OTHER, SELFPAY ==
[2018-09-10 07:33] VITALS: BMI 37.6
--- NOTE | 2018-09-13 11:46 | CT_ITS ---
STUDY: CT SCAN HIP RIGHT REASON FOR EXAM: Male, 78 years old. 5 day history of hip pain. No known injury. RADIATION DOSAGE (If Supplied By Facility): CTDIvol = ( 44.30 ) mGy, DLP = ( 1530.44 ) mGycm. Individualized dose optimization techniques were used for this CT.? TECHNIQUE: Multiple axial tomographic images of the right hip joint were obtained without intravenous contrast administration. Coronal and sagittal reconstruction was obtained as well. COMPARISON: Comparison is made with prior radiograph of the right hip performed earlier today. FINDINGS: Is evidence of a diffuse soft tissue density within the hip joints. This extends to the overlying musculature. An inflammatory process or synovial hypertrophy should be ruled out. There is a mild irregularity of the greater trochanter of the hip. There is also evidence of a soft tissue prominence of the iliac is muscle. [id number] degree of degenerative changes of the hip joint. CT/Extremity Lower without Contra IMPRESSION: Diffuse soft tissue swelling involving the hip joint as described. An inflammatory process or synovial hypertrophy should be ruled out. Degenerative changes of the hip joint. Electronically Signed: Dong Multani MD at 13:48 EST Tel [phone], Service support ,
--- OUTSIDE RECORDS SUMMARY | 2018-11-15 15:37 | XMS RPT_ITS ---
:1940 Author Organization OHIP Support Name Relationship Address Phone DONELL FLOYD Unavailable [address] + [place] [address] R Unavailable Unavailable Unavailable FOZIA, DONELL Unavailable [address] + [place] [address] R Unavailable Unavailable Unavailable FOZIA DONELL Unavailable [address] + [place] [address] R Unavailable Unavailable Unavailable FOZIA, DONELL Unavailable [address] + [place] [address] R Unavailable Unavailable Unavailable FOZIA, DONELL Unavailable [address] + [place] [address] R Unavailable Unavailable Unavailable FOZIA, DONELL Unavailable [address] + [place] [address] R Unavailable Unavailable Unavailable FOZIA, DONELL Unavailable [address] + [place] [address] R Unavailable Unavailable Unavailable FOZIA, DONELL Unavailable [address] + [place] [address] R Unavailable Unavailable Unavailable FOZIA, DONELL Unavailable [address] + [place] [address] R Unavailable Unavailable Unavailable FOZIA, DONELL Unavailable [address] + [place] [address] R Unavailable Unavailable Unavailable FOZIA, DONELL Unavailable [address] + [place] [address] R Unavailable Unavailable Unavailable FOZIA, DONELL Unavailable [address] + [place] [address] R Unavailable Unavailable Unavailable FOZIA, DONELL Unavailable [address] + [place] [address] R Unavailable Unavailable Unavailable FOZIA, DONELL Unavailable [address] + [place] [address] R Unavailable Unavailable Unavailable FOZIADUSTINCY Unavailable [address] + [place] [address] R Unavailable Unavailable Unavailable FOZIADUSTINCY Unavailable [address] + [place] [address] R Unavailable Unavailable Unavailable FOZIADONELL Unavailable [address] + [place] [address] R Unavailable Unavailable Unavailable FOZIADUSTINCY Unavailable [address] + [place] [address] R Unavailable Unavailable Unavailable FOZIADUSTINCY Unavailable [address] + [place] [address] R Unavailable Unavailable Unavailable FOZIADUSTINCY Unavailable [address] + [place] [address] R Unavailable Unavailable Unavailable FOZIADUSTINCY Unavailable [address] + [place] [address] R Unavailable Unavailable Unavailable FOZIADUSTINCY Unavailable [address] + [place] [address] R Unavailable Unavailable Unavailable Care Team Providers Name Role Phone Jp Sanabria Attending Unavailable Kaushik, Vick Referring Unavailable Kaushik, Vick Admitting Unavailable [place], [place] Attending Unavailable Kaushik, Vick Referring Unavailable [facility] Unavailable [place], [place] Consulting Unavailable Kaushik, Vick Consulting Unavailable Kaushik, Vick Admitting Unavailable [place], [place] Attending Unavailable Kaushik, Vick Referring Unavailable [facility] Unavailable [place], [place] Consulting Unavailable [place], Vick Consulting Unavailable Kaushik, Vick Admitting Unavailable [place], [place] Attending Unavailable Kaushik, Vick Referring Unavailable [facility] Unavailable [place], [place] Consulting Unavailable Kaushik, Vick Consulting Unavailable Kaushik, Vick Admitting Unavailable [place], [place] Attending Unavailable Kaushik, Vick Referring Unavailable [facility] Unavailable [place], [place] Consulting Unavailable Kaushik, Vick Consulting Unavailable Franco, Nima Chi Admitting Unavailable Franco, Nima Chi Attending Unavailable [facility] Unavailable Polo Carpenter Attending Unavailable Franco, Nima Chi Referring Unavailable [facility] Unavailable Manoj Alberto Attending Unavailable Starla, [...] Unavailable Starla, Man Primary Care Unavailable [place], [place] Consulting Unavailable Vick Faulkner Attending Unavailable Starla, [...] M12.811 - Other Franco, Nima Chi Active [facility] arthropathies, not Hospital elsewhere Repository classified, right shoulder / M12.811(ICD-10) 08/09/2018 Unknown M75.101 - Franco, Nima Chi Active [place] Unspecified rotator Community cuff tear or Hospital rupture of right Repository shoulder, not specified as traumatic / M75.101(ICD-10) 08/06/2018 Unknown 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 KaushikVick hayden Active [place] of left artificial Community shoulder joint / Hospital Z96.612(ICD-10) Repository 08/01/2018 Unknown I10 - Essential MoodispawJp Active [place] (primary) Community hypertension / Hospital I10(ICD-10) Repository 05/02/2018 Unknown I48.0 - Paroxysmal Moodispashira Jp Active [place] atrial fibrillation Community / I48.0(ICD-10) Hospital Repository 05/02/2018 Unknown 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, 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 / I48.1(ICD-10) Hospital Repository 02/10/2018 Active Paroxysmal atrial NA Active [place] fibrillation / Clinic Main I48.0(ICD-10) [place] Repository 01/18/2018 Active Encounter for NA Active [facility] screening for Clinic Main malignant neoplasm [place] of colon / Repository Z12.11(ICD-10) 2015 Active Essential (primary) NA Active [place] hypertension / Clinic Main I10(ICD-10) [place] Repository 01/07/2018 Active 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) / Repository D50.0(ICD-10) 01/07/2018 Admitting Unknown / JUAN CHIN Active [facility] UNK(Unknown) [facility] Repository 11/30/2017 [...] Unknown R06.00 - Dyspnea, Man Cha Active [facility] unspecified / Community R06.00(ICD-10) Hospital Repository PROCEDURES PROCEDURES No Procedure Records FoundRESULTS RESULTS EXTREMITY LOWER Observed: 09/13/2018 Status: F Source: [place] WITHOUT CONTRA 11:46 AM [facility] REPOS[facility]ORY [facility] Imaging Services [address] [place] [address] Extremity Lower without Contra MR#: [id number] Acct: [id number] Name: PANDA FLOYD Rep #: [id number] : 1940 M 78 From: Dong Multani MD PCP: Man Cha MD Status: REG CLI Study: Extremity Lower without Contra Date of Exam: 09/13/18 Exam# [id number] Ordering Dr: Man Cha MD STUDY: CT [...] tissue prominence of the iliac is muscle. Xaqq-rq-[id number] degree of degenerative changes of the hip joint. CT/Extremity Lower without Contra IMPRESSION: Diffuse soft tissue swelling involving the hip joint as described. An inflammatory process or synovial hypertrophy should be ruled out. Degenerative changes of the hip joint. Electronically Signed: Dong Multani MD at 13:48 EST Tel [phone], Service support , CC: Man Cha MD Cavalry Scout: Signed EMERGENCY DEPARTMENT Observed: 09/10/2018 Status: F Source: [place] SUMMARY 2:47 PM [facility] RE[facility]ORY [facility] Medical Records Department [address] [place] [address] Emergency Department Summary 09/10/18 0803 MR#: [id number] Acct: [id number] Name: PANDA FLOYD Rep #: [id number] : 1940 78 From: Manoj Alberto MD [...] therapeutic he will be prescribed a walker Galva No. 12 for pain to use as needed if Tylenol is ineffective and follow-up with his family physicians and return for change in symptoms Disposition: [] Impression: [] Right hip posterior back pain with some radicular symptoms, status post left shoulder replacement This note was generated with [employer] Interactive dictation software. It may contain incorrect words, spelling, and punctuation that were not noted in review of the chart prior to signing ED Disposition - Plan for ED Patient: Chief Complaint: Lower Extremity Injury Instructions: ED Contusion Hip Prescriptions: Hydrocodone Bitart/Apap 5-325 [Galva 5MG-325MG] 1 tab PO Q4H PRN PRN 2 Days #10 tab PRN Reason: Pain Referrals: Man Cha MD [Primary Care Provider] - What to do if you have Problems For any increased pain, shortness of breath, bleeding, nausea or vomiting, chest pain, or any unexpected problems, contact your Primary Care Provider. Call [facility] ([phone]) or report to the closest Emergency Room. Call 911 if necessary. 09/10/18 1447 <Electronically signed by Manoj Alberto MD> Date Manoj Alberto MD Cosigner Signature (If Indicated): Date CC: Man Cha MD DISCHARGE INSTRUCTION Observed: 09/10/2018 Status: F Source: [place] 9:29 AM [facility] RE[facility] Medical Records Department [address] [place] [address] Discharge Instruction 09/10/18926 MR#: [id number] Acct: [id number] Name: PANDA FLOYD Rep #: [id number] : 1940 78 From: Manoj Alberto MD PCP: Man Cha MD Status: REG ER ED Disposition - Plan for ED Patient: Chief Complaint: Lower Extremity Injury Instructions: ED Contusion Hip Prescriptions: Hydrocodone Bitart/Apap 5-325 [Galva 5MG-325MG] 1 tab PO Q4H PRN PRN 2 Days #10 tab PRN Reason: Pain Referrals: Man Cha MD [Primary Care Provider] - What to do if you have Problems For any increased pain, shortness of breath, bleeding, nausea or vomiting, chest pain, or any unexpected problems, contact your Primary Care Provider. Call [facility] ([phone]) or report to the closest Emergency Room. Call 911 if necessary. 09/10/18 0929 <Electronically signed by Manoj Alberto MD> Date Manoj Alberto MD Cosigner Signature (If Indicated): Date CC: Man Cha MD HIP, UNI W/ PELVIS Observed: 09/10/2018 Status: F Source: [place] 2-3 VIEWS 8:01 AM [facility] RE[facility]ORY [facility] Imaging Services [address] [place] [address] HIP, UNI W/ Pelvis 2-3 Views MR#: [id number] Acct: [id number] Name: PANDA FLOYD Rep #: [id number] : 1940 M 78 From: Fadumo Rivera MD PCP: Man Cha MD Status: REG ER Study: HIP, UNI W/ Pelvis 2-3 Views Date of Exam: 09/10/18 Exam# [id number] Ordering Dr: Manoj Alberto MD STUDY: X-RAY [...] CC: MD Sabina Alberto; Man Cha MD Cavalry Scout: Signed LUMBAR SPINE 2 OR 3 Observed: 09/10/2018 Status: F Source: [place] VIEWS 8:01 AM [facility] REPOS[facility] Imaging Services [address] [place] [address] [place] [address] Lumbar Spine 2 or 3 Views MR#: [id number] Acct: [id number] Name: PANDA FLOYD Rep #: [id number] : 1940 78 From: Fadumo Rivera MD PCP: Man Cha MD Status: REG ER Study: Lumbar Spine 2 or 3 Views Date of Exam: 09/10/18 Exam# [id number] Ordering Dr: Manoj Alberto MD STUDY: X-RAY [...] CC: MD Sabina Alberto; Man Cha MD Cavalry Scout: Signed 12 LEAD ELECTROCARDIOGRAM Observed: 08/17/2018 Status: F Source: [place] 2:53 PM [facility] Cardiovascular Services [address] [place] [address] 12 Lead EKG 08/08/18 0937 MR#: [id number] Acct: [id number] Name: PANDA FLOYD Rep #: [id number] : 1940 78 From: Polo Carpenter MD Attending Dr: Franco LOPES,Nima Nguyen Status: DIS IN Ordering Dr: Nima Gamez MD Date: 08/08/18 Location: [facility] Sex: M C Admitted: 08/06/18 Test Reason [...] now Present Confirmed by POLO CARPENTER ([id number]), content editor QUENTIN RIVERA ([id number]) on 08/17/2018 2:53:15 PM Referred By: FRANCO Confirmed By:POLO CARPENTER 08/17/18 1453 Date Polo Carpenter MD CC: Man Cha MD; Nima Gamez MD Signed BEDSIDE GLUCOSE Collected: 08/09/2018 Status: F Source: [place] 6:16 AM [facility] REPOSITORY TYPE CODE TESTS RESULT OUT OF REFERENCE UNITS RANGE LAB L501.080 70-110 mg/dL High BEDSIDE GLU 163 Result Comment: MANAGEMENT OF PATIENT CARE PER NURSING PROTOCOL Performed By: #### L501.080 #### [facility] Laboratory Point of Care [address] [place] [address] DISCHARGE SUMMARY Observed: 08/08/2018 Status: F Source: [place] 8:26 PM [facility]ORY [facility] Medical Records Department [address] [place] [address] Discharge Summary 08/08/182024 MR#: [id number] Acct: [id number] Name: PANDA FLOYD Rep #: [id number] : 1940 78 From: Nima Gamez MD PCP: Man Cha MD Status: ADM IN Location: [place] [address] Discharge Date and Diagnosis Date of Admission: [...] Dong Multani MD at 10:48 EST Tel [phone], Service support , Labs (Last 48 Hours) [...] Date Recorded By Document 08/08/18 10:38 LATRELL [id number] 08/08/18 10:40 LATRELL Orthostatic Vitals Standing -Blood [...] When: 2 weeks. Please Follow Up With: [facility] [place] When: 1 week. Please [...] DISCHARGE INSTRUCTION Observed: 08/08/2018 Status: F Source: [place] 8:25 PM [facility] RE[facility]ORY [facility] Medical Records Department [address] [place] [address] Instructions for Home/Discharge Instructions 08/08/182022 MR#: [id number] Acct: [id number] Name: PANDA FLOYD Rep #: [id number] : 1940 78 From: Nima Gamez MD [...] When: 2 weeks. Please Follow Up With: [facility] [place] When: 1 week. Please Follow Up With: Man Cha MD When: after DC Proposed Discharge Date: 08/09/18 08/08/182024 <Electronically signed by Nima Gamez MD> Date Nima Gamez MD CC: Man Cha MD CHEST PA AND LATERAL Observed: 08/08/2018 Status: F Source: [place] 9:50 AM [facility] RE[facility]ORY [facility] Imaging Services [address] [place] [address] Chest PA and Lateral MR#: [id number] Acct: [id number] Name: PANDA FLOYD Rep #: [id number] : 1940 M 78 From: Dong Multani MD PCP: Man Cha MD Status: ADM IN Study: Chest PA and Lateral Date of Exam: 08/08/18 Exam# [id number] Ordering Dr: Nima Gamez MD STUDY: X-RAY [...] Dong Multani MD at 10:48 EST Tel [phone], Service support , CC: Man Cha MD; Nima Gamez MD Cavalry Scout: Signed DISCHARGE SUMMARY Observed: 08/08/2018 Status: F Source: [place] 7:37 AM [facility] REPOS[facility]ORY [facility] Medical Records Department [address] [place] [address] Discharge Summary 08/08/18 0732 MR#: [id number] Acct: [id number] Name: PANDA FLOYD Rep #: [id number] : 1940 78 From: Dennis Page PA-C PCP: Man Cha MD Status: DIS IN Y Location: [facility]3 [id number] Discharge Date and Diagnosis - Primary Discharge [...] was admitted to the 3rd floor at [facility]. The patient's pain was managed with the use of IV and p.o. pain medications. Medicine was consulted for postoperative medical management. Patient participated in physical therapy. Patient did have difficulty with balance and required significant assistance with physical therapy. It was recommended that patient required custodial facility upon discharge. Patient was discharged on postoperative day #3 to transitional care unit at [facility]. Patient was given medications stated below. Patient will follow up with [facility] per postop instructions for reassessment. - [...] 08/08/2018 Status: F Source: [place] 6:59 AM [facility] REPOSITORY TYPE CODE TESTS RESULT OUT OF REFERENCE UNITS RANGE LAB L501.080 70-110 mg/dL High BEDSIDE GLU 143 Result Comment: MANAGEMENT OF PATIENT CARE PER NURSING PROTOCOL Performed By: #### L501.080 #### [facility] Laboratory Point of Care [address] [place], [place] [address] PROTHROMBIN TIME W/INR Collected: 08/08/2018 Status: F Source: [place] 5:10 AM [facility] REPOSITORY TYPE CODE TESTS RESULT OUT OF RANGE REFERENCE UNITS LAB L300.4150 11.7-14.9 SECONDS High PROTIME 16.1 LAB L300.4200 Normal INR 1.3 Performed By: #### L300.3900 #### [facility] Laboratory [address] [place], [place], [address] BEDSIDE GLUCOSE Collected: 08/07/2018 Status: F Source: [place] 9:01 PM [facility] REPOSITORY TYPE CODE TESTS RESULT OUT OF REFERENCE UNITS RANGE LAB L501.080 70-110 mg/dL High BEDSIDE GLU 155 Result Comment: MANAGEMENT OF PATIENT CARE PER NURSING PROTOCOL Performed By: #### L501.080 #### [facility] Laboratory Point of Care [address] [place], [place] [address] BEDSIDE GLUCOSE Collected: 08/07/2018 Status: F Source: [place] 5:33 PM [facility] REPOSITORY TYPE CODE TESTS RESULT OUT OF REFERENCE UNITS RANGE LAB L501.080 70-110 mg/dL High BEDSIDE GLU 180 Result Comment: MANAGEMENT OF PATIENT CARE PER NURSING PROTOCOL Performed By: #### L501.080 #### [facility] Laboratory Point of Care [address] [place], [place] [address] BEDSIDE GLUCOSE Collected: 08/07/2018 Status: F Source: [place] 11:26 AM [facility] REPOSITORY TYPE CODE TESTS RESULT OUT OF REFERENCE UNITS RANGE LAB L501.080 70-110 mg/dL High BEDSIDE GLU 119 Result Comment: Dr Germain Followed MANAGEMENT OF PATIENT CARE PER NURSING PROTOCOL Performed By: #### L501.080 #### [facility] Laboratory Point of Care [address] [place] [address] CBC W/DIFF, AUTOMATED Collected: 08/07/2018 Status: F Source: [place] 6:46 AM [facility] REPOSITORY TYPE CODE TESTS RESULT OUT [...] Lymph 0.71 Performed By: #### L100.0100 #### [facility] Laboratory [address] [place], [address] BASIC METABOLIC Collected: 08/07/2018 Status: F Source: [place] PROFILE ([facility] 6:46 AM [facility] REPOSITORY TYPE CODE TESTS RESULT OUT [...] GAP 7 Performed By: #### L500.2500 #### [facility] Laboratory [address] [place], [address] BEDSIDE GLUCOSE Collected: 08/07/2018 Status: F Source: [place] 6:36 AM [facility] REPOSITORY TYPE CODE TESTS RESULT OUT OF REFERENCE UNITS RANGE LAB L501.080 70-110 mg/dL High BEDSIDE GLU 153 Result Comment: MANAGEMENT OF PATIENT CARE PER NURSING PROTOCOL Performed By: #### L501.080 #### [facility] Laboratory Point of Care [address] [place] [address] [place] [address] BEDSIDE GLUCOSE Collected: 08/06/2018 Status: F Source: [place] 9:05 PM [facility] REPOSITORY TYPE CODE TESTS RESULT OUT OF REFERENCE UNITS RANGE LAB L501.080 70-110 mg/dL High BEDSIDE GLU 146 Result Comment: MANAGEMENT OF PATIENT CARE PER NURSING PROTOCOL Performed By: #### L501.080 #### [facility] Laboratory Point of Care [address] [place] [address] BEDSIDE GLUCOSE Collected: 08/06/2018 Status: F Source: [place] 5:02 PM [facility] REPOSITORY TYPE CODE TESTS RESULT OUT OF REFERENCE UNITS RANGE LAB L501.080 70-110 mg/dL High BEDSIDE GLU 150 Result Comment: MANAGEMENT OF PATIENT CARE PER NURSING PROTOCOL Performed By: #### L501.080 #### [facility] Laboratory Point of Care [address] [place] [place] [address] HISTORY AND PHYSICAL Observed: 08/06/2018 Status: F Source: [place] EXAM 5:00 PM [facility] REPOS[facility]ORY [facility] Medical Records Department [address] [place] [address] History and Physical 08/06/18 1645 MR#: [id number] Acct: [id number] Name: PANDA FLOYD Rep #: [id number] : 1940 78 From: Nima Gamez MD PCP: Man Cha MD Status: ADM IN Location: [place] [address] Problem List (1) Right rotator cuff tear [...] BEDSIDE GLUCOSE Collected: 08/06/2018 Status: F Source: [place] 11:35 AM [facility] REPOSITORY TYPE CODE TESTS RESULT OUT OF REFERENCE UNITS RANGE LAB L501.080 70-110 mg/dL High BEDSIDE GLU 156 Result Comment: MANAGEMENT OF PATIENT CARE PER NURSING PROTOCOL Performed By: #### L501.080 #### [facility] Laboratory Point of Care [address] [place], [place] [address] [address] CBC W/DIFF, AUTOMATED Collected: 08/06/2018 Status: F Source: [place] 7:30 AM [facility] REPOSITORY TYPE CODE TESTS RESULT OUT [...] Lymph 0.93 Performed By: #### L100.0100 #### [facility] [address] [facility] [place], [place], [address] PROTHROMBIN TIME W/INR Collected: 08/06/2018 Status: F Source: [place] 7:30 AM [facility] REPOSITORY TYPE CODE TESTS RESULT OUT OF RANGE REFERENCE UNITS LAB L300.4150 11.7-14.9 SECONDS High PROTIME 15.9 LAB L300.4200 Normal INR 1.3 Performed By: #### L300.3900 #### [facility] [address] [place], [place], [address] BASIC METABOLIC Collected: 08/06/2018 Status: F Source: [place] PROFILE (BMP) 7:30 AM [facility] REPOSITORY TYPE CODE TESTS RESULT OUT [...] GAP 10 Performed By: #### L500.2500 #### [facility] Laboratory [address] [place], [address] BEDSIDE GLUCOSE Collected: 08/06/2018 Status: F Source: [place] 6:57 AM [facility] REPOSITORY TYPE CODE TESTS RESULT OUT OF REFERENCE UNITS RANGE LAB L501.080 70-110 mg/dL High BEDSIDE GLU 148 Result Comment: MANAGEMENT OF PATIENT CARE PER NURSING PROTOCOL Performed By: #### L501.080 #### [facility] Laboratory Point of Care [address] [place] [address] BEDSIDE GLUCOSE Collected: 08/05/2018 Status: F Source: [place] 10:03 PM [facility] REPOSITORY TYPE CODE TESTS RESULT OUT OF REFERENCE UNITS RANGE LAB L501.080 70-110 mg/dL High BEDSIDE GLU 177 Result Comment: MANAGEMENT OF PATIENT CARE PER NURSING PROTOCOL Performed By: #### L501.080 #### [facility] Laboratory Point of Care [address] [place] [address] BEDSIDE GLUCOSE Collected: 08/05/2018 Status: F Source: [place] 6:01 PM [facility] REPOSITORY TYPE CODE TESTS RESULT OUT OF REFERENCE UNITS RANGE LAB L501.080 70-110 mg/dL High BEDSIDE GLU 137 Result Comment: MANAGEMENT OF PATIENT CARE PER NURSING PROTOCOL Performed By: #### L501.080 #### [facility] Laboratory Point of Care [address] [place] [address] BEDSIDE GLUCOSE Collected: 08/05/2018 Status: F Source: [place] 11:18 AM [facility] REPOSITORY TYPE CODE TESTS RESULT OUT OF REFERENCE UNITS RANGE LAB L501.080 70-110 mg/dL High BEDSIDE GLU 149 Result Comment: MANAGEMENT OF PATIENT CARE PER NURSING PROTOCOL Performed By: #### L501.080 #### [facility] Laboratory Point of Care [address] [place] [address] BEDSIDE GLUCOSE Collected: 08/05/2018 Status: F Source: [place] 6:41 AM [facility] REPOSITORY TYPE CODE TESTS RESULT OUT OF REFERENCE UNITS RANGE LAB L501.080 70-110 mg/dL High BEDSIDE GLU 117 Result Comment: MANAGEMENT OF PATIENT CARE PER NURSING PROTOCOL Performed By: #### L501.080 #### [facility] Laboratory Point of Care [address] [place], [place] [address] BEDSIDE GLUCOSE Collected: 08/04/2018 Status: F Source: [place] 10:17 PM [facility] REPOSITORY TYPE CODE TESTS RESULT OUT OF REFERENCE UNITS RANGE LAB L501.080 70-110 mg/dL High BEDSIDE GLU 133 Result Comment: MANAGEMENT OF PATIENT CARE PER NURSING PROTOCOL Performed By: #### L501.080 #### [facility] Laboratory Point of Care [address] [place] [address] BEDSIDE GLUCOSE Collected: 08/04/2018 Status: F Source: [place] 4:12 PM [facility] REPOSITORY TYPE CODE TESTS RESULT OUT OF REFERENCE UNITS RANGE LAB L501.080 70-110 mg/dL High BEDSIDE GLU 155 Result Comment: MANAGEMENT OF PATIENT CARE PER NURSING PROTOCOL Performed By: #### L501.080 #### [facility] Laboratory Point of Care [address] [place] [address] BEDSIDE GLUCOSE Collected: 08/04/2018 Status: F Source: [place] 11:48 AM [facility] REPOSITORY TYPE CODE TESTS RESULT OUT OF REFERENCE UNITS RANGE LAB L501.080 70-110 mg/dL High BEDSIDE GLU 166 Result Comment: MANAGEMENT OF PATIENT CARE PER NURSING PROTOCOL Performed By: #### L501.080 #### [facility] Laboratory Point of Care [address] [place] [address] DISCHARGE INSTRUCTION Observed: 08/04/2018 Status: F Source: [place] 10:47 AM [facility] REPOSITORY [facility] Medical Records Department [address] [place] [address] Instructions for Home/Discharge Instructions 08/04/18 1045 MR#: [id number] Acct: [id number] Name: PANDA FLOYD Rep #: [id number] : 1940 78 From: Dennis Page PA-C [...] on August 08, 2018 Additional Instructions: Follow [facility] postop instructions Allergies/Adverse Reactions: Allergies No [...] 08/04/2018 Status: F Source: [place] 7:52 AM [facility] REPOSITORY TYPE CODE TESTS RESULT OUT OF RANGE REFERENCE UNITS LAB L300.4150 11.7-14.9 SECONDS High PROTIME 15.8 LAB L300.4200 Normal INR 1.3 Performed By: #### L300.3900 #### [facility] [address] [place], [address] SHOULDER MIN 2 VIEWS Observed: 08/04/2018 Status: F Source: FROID 6:53 AM [facility] REPOSITORY [facility] Imaging Services [address] [place] [address] Shoulder min 2 Views MR#: [id number] Acct: [id number] Name: PANDA FLOYD Rep #: [id number] : 1940 M 78 From: Dong Multani MD PCP: Man Cha MD Status: ADM IN Study: Shoulder min 2 Views Date of Exam: 08/04/18 Exam# [id number] Ordering Dr: Vick Faulkner MD STUDY: X-RAY [...] Dong Multani MD at 10:46 EST Tel [phone], Service support , CC: Man Cha MD; Vick Faulkner MD Cavalry Scout: Signed BEDSIDE GLUCOSE Collected: 08/04/2018 Status: F Source: FROID 6:44 AM [facility] REPOSITORY TYPE CODE TESTS RESULT OUT OF REFERENCE UNITS RANGE LAB L501.080 70-110 mg/dL High BEDSIDE GLU 140 Result Comment: MANAGEMENT OF PATIENT CARE PER NURSING PROTOCOL Performed By: #### L501.080 #### [facility] Point of Care [address] [place] [address] BEDSIDE GLUCOSE Collected: 08/03/2018 Status: F Source: [place] 10:12 PM [facility] REPOSITORY TYPE CODE TESTS RESULT OUT OF REFERENCE UNITS RANGE LAB L501.080 70-110 mg/dL High BEDSIDE GLU 118 Result Comment: MANAGEMENT OF PATIENT CARE PER NURSING PROTOCOL Performed By: #### L501.080 #### [facility] Point of Care [address] [place], [place] [address] BEDSIDE GLUCOSE Collected: 08/03/2018 Status: F Source: [place] 4:25 PM [facility] REPOSITORY TYPE CODE TESTS RESULT OUT OF REFERENCE UNITS RANGE LAB L501.080 70-110 mg/dL High BEDSIDE GLU 169 Result Comment: MANAGEMENT OF PATIENT CARE PER NURSING PROTOCOL Performed By: #### L501.080 #### [facility] Point of Care [address] [place] [address] BEDSIDE GLUCOSE Collected: 08/03/2018 Status: F Source: [place] 11:54 AM [facility] REPOSITORY TYPE CODE TESTS RESULT OUT OF REFERENCE UNITS RANGE LAB L501.080 70-110 mg/dL High BEDSIDE GLU 180 Result Comment: MANAGEMENT OF PATIENT CARE PER NURSING PROTOCOL Performed By: #### L501.080 #### [facility] Point of Care [address] [place], [place] [address] BEDSIDE GLUCOSE Collected: 08/03/2018 Status: F Source: [place] 10:09 AM [facility] REPOSITORY TYPE CODE TESTS RESULT OUT OF REFERENCE UNITS RANGE LAB L501.080 70-110 mg/dL High BEDSIDE GLU 196 Result Comment: MANAGEMENT OF PATIENT CARE PER NURSING PROTOCOL Performed By: #### L501.080 #### [facility] Point of Care [address] [place] [address] OPERATIVE REPORT Observed: 08/03/2018 Status: F Source: [place] 8:46 AM [facility] REPOSITORY [facility] Medical Records Department [address] [place] [address] Operative Report 08/03/18 0841 MR#: [id number] Acct: [id number] Name: PANDA FLOYD Rep #: [id number] : 1940 78 From: Vick Faulkner MD PCP: Man Cha MD Status: ADM IN Y Location: MA3 [id number] Report of Operation Date of Procedure: 08/03/18 Pre-Operative Diagnosis: Left shoulder cuff tear arthropathy Post-Operative Diagnosis: Left shoulder cuff tear arthropathy Surgery/Procedure Performed:: Left reverse total shoulder replacement Description of Surgical Findings:: Stable shoulder preparation center coordinator: Renata Salamanca Type of Anesthesia:: General Anesthesiologist: [...] rotated and the shoulder was dislocated. The LiveRamp humeral head cutting guide was used to [...] of phase 1 physical therapy. Grafts/Implants Used: Brinkley reunion reverse total shoulder - Complications None - Admit VTE Documentation VTE Present on Admission: No VTE Mechan Device Prophylaxis: SCD's, Thigh High ALBERTO Hose VTE Pharm Prophylaxis ordered?: Yes 08/03/18 0846 <Electronically signed by Vick Faulkner MD> Date Vick Faulkner MD CC: Man Cha MD; Vick Faulkner MD Signed SHOULDER ONE VIEW Observed: 08/03/2018 Status: F Source: FROID 7:12 AM [facility] REPOSITORY [facility] Imaging Services [address] [place] [address] Shoulder One View MR#: [id number] Acct: [id number] Name: FOZIAPANDA R Rep #: [id number] : 1940 M 78 From: Dong Multani MD PCP: Man Cha MD Status: ADM IN Study: Shoulder One View Date of Exam: 08/03/18 Exam# [id number] Ordering Dr: Vick Faulkner MD STUDY: X-RAY [...] Dong Multani MD at 12:18 EST Tel [phone], Service support , CC: Man Cha MD; Vick Faulkner MD Cavalry Scout: Signed PROTIME W/INR Collected: 08/03/2018 Status: F Source: [place] FINGERSTICK 5:58 AM [facility] REPOSITORY TYPE CODE TESTS RESULT OUT OF RANGE REFERENCE UNITS LAB L9200.1001 11.9-14.4 SEC Normal PROTIME ISTAT 14.0 Result Comment: Reference Range 11.9 - 14.4 LAB L9200.2000 Normal INR ISTAT 1.20 Result Comment: Critical Value > 3.5 Performed By: #### L9200.0000 #### [facility] Point of Care [address] [place], [place] [address] BEDSIDE GLUCOSE Collected: 08/03/2018 Status: F Source: [place] 5:56 AM [facility] REPOSITORY TYPE CODE TESTS RESULT OUT OF REFERENCE UNITS RANGE LAB L501.080 70-110 mg/dL High BEDSIDE GLU 146 Result Comment: MANAGEMENT OF PATIENT CARE PER NURSING PROTOCOL Performed By: #### L501.080 #### [facility] Point of Care [address] [place] [address] ALBUMIN, SERUM Collected: 07/27/2018 Status: F Source: FROID 12:13 PM [facility] REPOSITORY TYPE CODE TESTS RESULT OUT OF RANGE REFERENCE UNITS LAB L501.1800 3.2-5.0 g/dL Normal ALB 3.4 Performed By: #### L501.1800 #### [facility] [address] [place], [address] HISTORY AND PHYSICAL Observed: 07/22/2018 Status: F Source: FROID EXAM 10:54 PM [facility] REPOSITORY [facility] Medical Records Department [address] [place] [address] History and Physical 07/22/18 2253 MR#: [id number] Acct: [id number] Name: PANDA FLOYD Rep #: [id number] : 1940 78 From: Dennis Page PA-C PCP: Man Cha MD Status: PRE IN Y Location: [facility] [place] History and Physical DATE [...] has been treated and seen by his customer care manager Dr. Chin. We have obtain surgical clearance from the customer care manager and able to stop the Coumadin 3-5 [...] 07/22/2018 Status: F Source: [place] 3:50 PM [facility] REPOSITORY TYPE CODE TESTS RESULT OUT [...] Lymph 1.33 Performed By: #### L100.0100 #### [facility] [address] [place], [place], [address] BASIC METABOLIC Collected: 07/22/2018 Status: F Source: FROID PROFILE (BMP) 3:50 PM [facility] REPOSITORY TYPE CODE TESTS RESULT OUT [...] GAP 9 Performed By: #### L500.2500 #### [facility] [address] [place], [address] HEMOGLOBIN A1C Collected: 07/22/2018 Status: F Source: FROID 3:50 PM [facility] REPOSITORY TYPE CODE TESTS RESULT OUT OF RANGE REFERENCE UNITS LAB L501.9985 4.2-6.3 % High HGB A1C 7.0 Performed By: #### L501.9985 #### [facility] [address] [place], [address] Observed: 07/22/2018 Status: F Source: FROID MRSA/SAID SCREEN 3:50 PM [facility] REPOSITORY MRSA/SAID SCRN S. AUREUS S. aureus Negative MRSA MRSA Negative Performed By: #### M100.651 #### [facility] [address] [place], [address] PROGRESS Observed: 07/12/2018 Status: COMPLETED Source: [place] 2:06 PM [facility] REPOSITORY HNO ID: [id number] Author: Juan Chin Service: (none) Author Type: Physician Type: Progress Notes Filed: 07/12/2018 3:28 PM Note Text: PERTINENT CARDIAC HISTORY Abnormal EKG Hypertension Hyperlipidemia Diabetes PAF - C-V >2 ADHERENCE TO GUIDELINES ANAMARIA-I or ARB for HF with prior LVEF<40 (NQF 0081) - CRF ASA or Plavix for ASHD (NQF 0067) - N/A Beta armando for ASHD with prior [place] or prior LVEF<40 (NQF 0070) - N/A [...] MD CNOV Observed: 07/12/2018 Status: COMPLETED Source: [place] 1:30 PM [facility] REPOSITORY Office Visit (CAWSTR) PANDA FLOYD ([id number]) 1940 M Date Time Provider Department 07/12/18 [...] N/A Beta armando for ASHD with prior [place] or prior LVEF<40 (NQF 0070) - N/A [...] Man Cha MD Referring Provider: JUAN CHIN [[id number]] Allergies As of Date: 07/12/2018 (No Known [...] [M25.*INVALID FOR*05/07/2011 Special Screening for Malignant Neoplasms, Haslet*INVALID FOR*10/11/2009 POLYP COLON [D12.6] INVALID FOR*10/11/2009 NEURALGIA/NEURITIS NOS [[id number]] INVALID FOR* OBESITY NOS [E66.9] INVALID FOR* [...] EXTREMITY UPPER Observed: 06/21/2018 Status: F Source: FROID WITHOUT CONTRA 12:47 PM [facility] REPOSITORY [facility] Imaging Services [address] [place] [address] Extremity Upper without Contra MR#: [id number] Acct: [id number] Name: PANDA FLOYD Rep #: [id number] : 1940 M 77 From: Maxim Espinoza MD PCP: Man Cha MD Status: REG CLI Study: Extremity Upper without Contra Date of Exam: 06/21/18 Exam# [id number] Ordering Dr: Vick Faulkner MD STUDY: CT [...] CC: Man Cha MD; Vick Faulkner MD Cavalry Scout: Signed PROGRESS Observed: 05/12/2018 Status: COMPLETED Source: [place] 11:47 AM [facility] REPOSITORY HNO ID: [id number] Author: Juan Chin Service: (none) Author Type: Physician Type: Progress Notes Filed: 05/12/2018 4:33 PM Note Text: PERTINENT CARDIAC HISTORY Abnormal EKG Hypertension Hyperlipidemia Diabetes PAF - C-V >2 ADHERENCE TO GUIDELINES ANAMARIA-I or ARB for HF with prior LVEF<40 (NQF 0081) - CRF ASA or Plavix for ASHD (NQF 0067) - N/A Beta armando for ASHD with prior [place] or prior LVEF<40 (NQF 0070) - N/A [...] MD CNOV Observed: 05/12/2018 Status: COMPLETED Source: [place] 11:15 AM [facility] REPOSITORY Office Visit (CAWSTR) PANDA FLOYD ([id number]) 1940 M Date Time Provider Department 05/12/18 [...] N/A Beta armando for ASHD with prior [place] or prior LVEF<40 (NQF 0070) - N/A [...] the following areas and commit to making jail changes. EAT A WHOLE FOOD, PLANT BASED [...] in your area. Referring Provider: JUAN CHIN [[id number]] Allergies As of Date: 05/12/2018 (No Known [...] [M25.*INVALID FOR*05/07/2011 Special Screening for Malignant Neoplasms, Haslet*INVALID FOR*10/11/2009 POLYP COLON [D12.6] INVALID FOR*10/11/2009 NEURALGIA/NEURITIS NOS [[id number]] INVALID FOR* OBESITY NOS [E66.9] INVALID FOR* [...] the following areas and commit to making manager terminal changes. EAT A WHOLE FOOD, PLANT BASED [...] 05/12/18 EKG1 Observed: 03/31/2018 Status: C Source: [place] 10:46 AM [facility] REPOSITORY NAME : PANDA FLOYD PID : [id number] : 1940 Gender : Male Race : [...] Also confirmed by JUAN CHIN MD ([id number]), content editor HERMILO BAL ([id number]) on 04/04/2018 12:11:57 PM Ventricular Rate : 83 BPM Atrial Rate : 83 BPM P-R Interval : 200 ms QRS Duration : 86 ms Q-T Interval : 426 ms QTC Calculation(Bezet) : 500 ms P Paulding : 81 degrees R Paulding : 14 degrees T Paulding : 32 degrees Test Reason : Location : 136 : [facility] Overread By : JUAN CHIN MD Edited By : HERMILO BAL Referred By : JUAN CHIN Acquired by : MAICOL SAMS Observed: 03/31/2018 Status: COMPLETED Source: [place] 10:00 AM [facility] REPOSITORY Nurse Visit (CAWSTR) PANDA FLOYD ([id number]) 1940 M Date Time Provider Department 03/31/18 10:00 AM [facility] CAWSTR During your visit today, we recorded the following information about you: Referring Provider: JUAN CHIN [[id number]] Allergies As of Date: 03/31/2018 (No Known [...] [M25.*INVALID FOR*05/07/2011 Special Screening for Malignant Neoplasms, Haslet*INVALID FOR*10/11/2009 POLYP COLON [D12.6] INVALID FOR*10/11/2009 NEURALGIA/NEURITIS NOS [SCA6384] INVALID FOR* OBESITY NOS [E66.9] INVALID FOR* [...] OPERATIVE REPORT Observed: 03/22/2018 Status: F Source: [place] 1:53 PM [facility] REPOSITORY [facility] Medical Records Department [address] [place] [address] [place] [address] Operative Report 03/22/18 1350 MR#: [id number] Acct: [id number] Name: PANDA FLOYD Rep #: [id number] : 1940 77 From: Jp Sanabria MD PCP: Man Cha MD Status: REG [facility] Y Location: [facility] Problem List (1) Atrial fibrillation Status: [...] apparent complications This note was generated with Gatekeeper Systemation software. It may contain incorrect words, spelling, and punctuation that were not noted in checking the note before signing. 03/22/18 1353 <Electronically signed by Jp Sanabria MD> Date Jp Sanabria MD CC: Juan Chin MD; Jp Sanabria MD; Man Cha MD Signed OPERATIVE REPORT Observed: 03/22/2018 Status: F Source: [place] 1:08 PM [facility] REPOSITORY [facility] Medical Records Department [address] [place] [address] Operative Report 03/22/18 1304 MR#: [id number] Acct: [id number] Name: PANDA FLOYD Rep #: [id number] : 1940 77 From: Anish Dalton DO PCP: Man Cha MD Status: REG SDC Y Location: [facility] Operative Report Date of Procedure: 03/22/18 CONSCIOUS SEDATION REPORT DATE OF SERVICE: March 22, 2018 BRIEF HISTORY OF PRESENT ILLNESS: The patient is a 77-year-old male who presented to [facility] for elective outpatient cardioversion due to [...] Visit 9xxxx: Other Procedure See Report - [id number] 03/22/18 1308 <Electronically signed by Anish Dalton DO> Date Anish Dalton DO CC: Anish Dalton D.O.; Jp Sanabria MD; Man Cha MD Signed PROTIME W/INR Collected: 03/22/2018 Status: F Source: [place] STONETICEnzo 11:06 AM [facility] REPOSITORY TYPE CODE TESTS RESULT OUT OF REFERENCE UNITS RANGE LAB L9200.1001 11.9-14.4 SEC High PROTIME ISTAT 23.7 Result Comment: Reference Range 11.9 - 14.4 LAB L9200.2000 Normal INR ISTAT 2.00 Result Comment: Critical Value > 3.5 Performed By: #### L9200.0000 #### [facility] Laboratory Point of Care [address] [place] [address] CNNURSE Observed: 03/16/2018 Status: COMPLETED Source: [place] 3:30 PM [facility] REPOSITORY Nurse Visit (CAWSTR) PANDA FLOYD ([id number]) 1940 M Date Time Provider Department 03/16/18 3:30 PM NURSE CARD ADMIN [facility] CAWSTR During your visit today, we recorded the following information about you: Stacey Duarte MA 04/08/2018 1:21 PM Signed EKG completed and given to Dr Chin for review. Stacey Duarte MA Referring Provider: JUAN CHIN [[id number]] Allergies As of Date: 03/16/2018 (No Known Allergies) Date Reviewed: 03/16/2018 Reviewed by: Marilu Burdick Ma - Fully Assessed Reason for Visit: Allied Health Visit [5] Visit Diagnosis:PAF (paroxysmal atrial fibrillation) (HCC) [I48.0] Order(s):ECG COMPLETE W INTERPRETATION [ECG01] Order #: [id number] Prescriptions as of 03/16/2018 Sig: WARFARIN 3 [...] [M25.*INVALID FOR*05/07/2011 Special Screening for Malignant Neoplasms, Haslet*INVALID FOR*10/11/2009 POLYP COLON [D12.6] INVALID FOR*10/11/2009 NEURALGIA/NEURITIS NOS [[id number]] INVALID FOR* OBESITY NOS [E66.9] INVALID FOR* [...] 04/08/18 PROTIME Collected: 03/16/2018 Status: F Source: [place] 2:14 PM [facility] REPOSIT[facility] TYPE CODE TESTS RESULT OUT OF RANGE REFERENCE UNITS LAB PSEC 9.7-13.0 sec High PT Sec 20.6 LAB INR 0.9-1.3 High PT INR 2.1 Result Comment: Vitamin K Antagonist (VKA) Therapeutic Range: INR 2 to 3 (Target INR of 2.5) Note: For patients treated with VKA drugs, such as warfarin, the [place] [employer] 2012 Guideline recommends [...] Chest 2012, 141:7S-47S Devaughn ROGEL, et al. [facility] 2017, 70: 252-289 Performed By: #### PT, CBC, BMP, MG1 #### [facility] [address] [place], [place] [address] CBC Collected: 03/16/2018 Status: F Source: [place] 2:14 PM [facility] REPOSITORY TYPE CODE TESTS RESULT [...] By: #### PT, CBC, BMP, MG1 #### [facility] [address] [place], [place] [address] BASIC METABOLIC PANL Collected: 03/16/2018 Status: F Source: [place] 2:14 PM [facility] REPOSITORY TYPE CODE TESTS RESULT OUT OF REFERENCE UNITS RANGE LAB GLU 74-99 mg/dL High Glucose 140 Result Comment: The [place] Diabetes Association (ADA) provides guidance for cutoff [...] Standards of Medical Care in Diabetes 2016, [place] [employer]. Diabetes Care. 2016.39(Suppl 1). LAB [...] By: #### PT, CBC, BMP, MG1 #### [facility] [address] [place], [place] [address] MAGNESIUM Collected: 03/16/2018 Status: F Source: [place] 2:14 PM [facility] REPOSITORY TYPE CODE TESTS RESULT OUT OF REFERENCE UNITS RANGE LAB MG 1.7-2.3 mg/dL Magnesium 1.8 Performed By: #### PT, CBC, BMP, MG1 #### [facility] [address] [place], [place] [address] EKG1 Observed: 03/16/2018 Status: F Source: [place] 1:49 PM [facility] REPOSITORY NAME : PANDA FLOYD PID : [id number] : 1940 Gender : Male Race : [...] ms QTC Calculation(Bezet) : 441 ms R Paulding : 34 degrees T Paulding : -13 degrees Test Reason : Location : 136 : [facility] Overread By : JUAN CHIN MD Edited By : JUAN CHIN MD Referred By : Enzo CHIN Acquired by : JOI, EKG1 Observed: 03/16/2018 Status: F Source: [place] 1:48 PM [facility] REPOSITORY NAME : PANDA FLOYD PID : [id number] : 1940 Gender : Male Race : [...] ms QTC Calculation(Bezet) : 471 ms R Paulding : 30 degrees T Paulding : -8 degrees Test Reason : Location : 136 : [facility] Overread By : JUAN CHIN MD Edited By : JUAN CHIN MD Referred By : Enzo CHIN Acquired by : JOI, PROGRESS Observed: 03/16/2018 Status: COMPLETED Source: [place] 1:42 PM [facility] REPOSITORY HNO ID: [id number] Author: Juan Chin Service: (none) Author Type: Physician Type: Progress Notes Filed: 03/16/2018 5:13 PM Note Text: PERTINENT CARDIAC HISTORY Abnormal EKG Hypertension Hyperlipidemia Diabetes PAF ADHERENCE TO GUIDELINES ANAMARIA-I or ARB for HF with prior LVEF<40 (NQF 0081) - CRF ASA or Plavix for ASHD (NQF 0067) - N/A Beta armando for ASHD with prior [place] or prior LVEF<40 (NQF 0070) - N/A [...] sinus rhythm. He will be referred to [facility] for cardioversion. He has declined [...] MD CNOV Observed: 03/16/2018 Status: COMPLETED Source: [place] 1:15 PM [facility] REPOSITORY Office Visit (CAWSTR) PANDA FLOYD ([id number]) 1940 M Date Time Provider Department 03/16/18 [...] N/A Beta armando for ASHD with prior [place] or prior LVEF<40 (NQF 0070) - N/A [...] sinus rhythm. He will be referred to [facility] for cardioversion. He has declined [...] the following areas and commit to making jail changes. EAT A WHOLE FOOD, PLANT BASED [...] in your area. Referring Provider: JUAN CHIN [[id number]] Allergies As of Date: 03/16/2018 (No Known Allergies) Date Reviewed: 03/16/2018 Reviewed by: Marilu Burdick Ma - Fully Assessed Reason for Visit: Established Patient [175] Cmt: 1 month follow up AF/Hypertension Primary Visit Diagnosis:PAF (paroxysmal atrial fibrillation) (HCC) [I48.0] Order(s):CBC [SQCBC] Order #: [id number] FUTURE MAGNESIUM BLD [SQMG1] Order #: [id number] FUTURE BASIC METABOLIC PNL [SQBMP] Order #: [id number] FUTURE PROTHROMBIN TIME/PT [SQPT] Order #: [id number] FUTURE ECG COMPLETE W INTERPRETATION [ECG01] Order #: [id number] FUTURE Prescriptions as of 03/16/2018 Sig: WARFARIN [...] [M25.*INVALID FOR*05/07/2011 Special Screening for Malignant Neoplasms, Haslet*INVALID FOR*10/11/2009 POLYP COLON [D12.6] INVALID FOR*10/11/2009 NEURALGIA/NEURITIS NOS [PFO5948] INVALID FOR* OBESITY NOS [E66.9] INVALID FOR* [...] the following areas and commit to making jail changes. EAT A WHOLE FOOD, PLANT BASED [...] 03/16/18 PROGRESS Observed: 02/10/2018 Status: COMPLETED Source: [place] 8:57 AM [facility] REPOSITORY HNO ID: [id number] Author: Juan Chin Service: (none) Author Type: Physician Type: Progress Notes Filed: 02/10/2018 11:03 AM Note Text: PERTINENT CARDIAC HISTORY Abnormal EKG Hypertension Hyperlipidemia Diabetes PAF ADHERENCE TO GUIDELINES ANAMARIA-I or ARB for HF with prior LVEF<40 (NQF 0081) - CRF ASA or Plavix for ASHD (NQF 0067) - N/A Beta armando for ASHD with prior [place] or prior LVEF<40 (NQF 0070) - N/A [...] MD CNOV Observed: 02/10/2018 Status: COMPLETED Source: [place] 8:30 AM [facility] REPOSITORY Office Visit (CAWSTR) PANDA FLOYD ([id number]) 1940 M Date Time Provider Department 02/10/18 [...] N/A Beta armando for ASHD with prior [place] or prior LVEF<40 (NQF 0070) - N/A [...] Man Cha MD Referring Provider: JUAN CHIN [[id number]] Allergies As of Date: 02/10/2018 (No Known Allergies) Date Reviewed: 02/10/2018 Reviewed by: Alfonso Elliott RN - Fully Assessed Reason for Visit: Recheck [92] Primary Visit Diagnosis:Hypertension, essential [I10] Other Visit Diagnosis:PAF (paroxysmal atrial fibrillation) (HCC) [I48.0] Order(s):furosemide (LASIX) 20 mg tabletTake 1 tablet by mouth once daily. As neededDisp: Rfl: ECG COMPLETE W INTERPRETATION [ECG01] Order #: [id number] FUTURE Prescriptions as of 02/10/2018 Sig: WARFARIN [...] [M25.*INVALID FOR*05/07/2011 Special Screening for Malignant Neoplasms, Haslet*INVALID FOR*10/11/2009 POLYP COLON [D12.6] INVALID FOR*10/11/2009 NEURALGIA/NEURITIS NOS [[id number]] INVALID FOR* OBESITY NOS [E66.9] INVALID FOR* [...] BLOOD DIAG. Collected: 01/18/2018 Status: F Source: [place] 9:59 AM [facility] REPOSITORY TYPE CODE TESTS RESULT OUT OF REFERENCE UNITS RANGE LAB OBSRCE Occult Stool Blood Source: LAB OBD Occult Negative Blood Diag. Performed By: #### OBDX #### [facility] [address] [place], [place] [address] CBC Collected: 01/07/2018 Status: F Source: [place] 3:24 PM [facility] REPOSITORY TYPE CODE TESTS RESULT [...] Performed By: #### CBC, PT, BMP #### [facility] [address] [place], [place] [address] PROTIME Collected: 01/07/2018 Status: F Source: [place] 3:24 PM [facility] REPOSITORY TYPE CODE TESTS RESULT OUT OF RANGE REFERENCE UNITS LAB PSEC 9.7-13.0 sec PT Sec 10.9 LAB INR 0.9-1.3 PT INR 1.1 Result Comment: Vitamin K Antagonist (VKA) Therapeutic Range: INR 2 to 3 (Target INR of 2.5) Note: For patients treated with VKA drugs, such as warfarin, the [place] [employer] 2012 Guideline recommends [...] Performed By: #### CBC, PT, BMP #### [facility] [address] [place], [place] [address] BASIC METABOLIC PANL Collected: 01/07/2018 Status: F Source: [place] 3:24 PM [facility] REPOSITORY TYPE CODE TESTS RESULT OUT OF REFERENCE UNITS RANGE LAB GLU 74-99 mg/dL High Glucose 145 Result Comment: The [place] Diabetes [employer] (ADA) provides guidance for cutoff [...] Standards of Medical Care in Diabetes 2016, [place] [employer]. Diabetes Care. 2016.39(Suppl 1). LAB [...] Performed By: #### CBC, PT, BMP #### [facility] [address] [place], [place] [address] PROGRESS Observed: 01/07/2018 Status: COMPLETED Source: [place] 2:52 PM [facility] REPOSITORY HNO ID: [id number] Author: Juan Chin Service: (none) Author Type: Physician Type: Progress Notes Filed: 01/07/2018 5:48 PM Note Text: PERTINENT CARDIAC HISTORY Abnormal EKG Hypertension Hyperlipidemia Diabetes PAF ADHERENCE TO GUIDELINES ANAMARIA-I or ARB for HF with prior LVEF<40 (NQF 0081) - N/A ASA or Plavix for ASHD (NQF 0067) - N/A Beta armando for ASHD with prior [place] or prior LVEF<40 (NQF 0070) - N/A [...] file. CNOV Observed: 01/07/2018 Status: COMPLETED Source: [place] 2:00 PM [facility] REPOSITORY Office Visit (AGCARDWST) PANDA FLOYD ([id number]) 1940 M Date Time Provider Department 01/07/18 [...] N/A Beta armando for ASHD with prior [place] or prior LVEF<40 (NQF 0070) - N/A [...] TUNNEL bilateral - COLONOSCOP W/ OR W/O [facility] SPEC 12/04/11 repeat 5 years - [...] the following areas and commit to making manager terminal changes. EAT A WHOLE FOOD, PLANT BASED [...] management.Philly Antunez LPN Referring Provider: JUAN CHIN [[id number]] Allergies As of Date: 01/07/2018 (No Known Allergies) Date Reviewed: 01/07/2018 Reviewed by: Rocael (Rn) Rosalind - Fully Assessed Reason for Visit: New Patient [172] Cmt: new onset a-fib - former polinski patient Primary Visit Diagnosis:PAF (paroxysmal atrial fibrillation) (HCC) [I48.0] Other Visit Diagnoses:Essential hypertension [I10] Anemia due to chronic blood loss [D50.0] Order(s):CBC [SQCBC] Order #: [id number] FUTURE PROTHROMBIN TIME/PT [SQPT] Order #: [id number] FUTURE OCCULT BLD EXAM-DIAG [SQOB] Order #: [id number] FUTURE BASIC METABOLIC PNL [SQBMP] Order #: [id number] FUTURE warfarin (COUMADIN) 5 mg tabletTake 1 [...] [M25.*INVALID FOR*05/07/2011 Special Screening for Malignant Neoplasms, Haslet*INVALID FOR*10/11/2009 POLYP COLON [D12.6] INVALID FOR*10/11/2009 NEURALGIA/NEURITIS NOS [BRF5446] INVALID FOR* OBESITY NOS [E66.9] INVALID FOR* [...] the following areas and commit to making jail changes. EAT A WHOLE FOOD, PLANT BASED [...] ECHOCARDIOGRAM COMPLETE Observed: 12/24/2017 Status: F Source: FROID 2:39 PM [facility] REPOSITORY [facility] Cardiovascular Services [address] [place] [address] Echo Complete 12/24/17 1303 MR#: [id number] Acct: [id number] Name: PANDA FLOYD Rep #: [id number] : 1940 77 From: Jp Sanabria MD Attending Dr: Man Cha Status: REG CLI Ordering Dr: Man Cha MD Date: 12/24/17 Location: [facility] Sex: M C Admitted: Reason For Study: [...] Dictated: 12/24/17 1303 Date Transcribed: 12/24/17 1439 Cavalry Scout: Signed COMPREHENSIVE METABOLIC Collected: 11/30/2017 Status: F Source: NELSON MANUEL 1:49 PM [facility] REPOSITORY TYPE CODE TESTS RESULT OUT [...] By: #### L500.4050, L501.5200, L501.9520, L506.0400 #### [facility] [address] [place], [place], [address] MAGNESIUM Collected: 11/30/2017 Status: F Source: NELSON 1:49 PM [facility] REPOSITORY TYPE CODE TESTS RESULT OUT OF RANGE REFERENCE UNITS LAB L501.5200 1.6-2.6 mg/dL Normal MG 1.9 Result Comment: Please note revised Magnesium reference range effective 2017. Performed By: #### L500.4050, L501.5200, L501.9520, L506.0400 #### [facility] [address] [place] [place], [address] THYROID STIM HORMONE Collected: 11/30/2017 Status: F Source: NELSON (TSH) 1:49 PM [facility] REPOSITORY TYPE CODE TESTS RESULT OUT OF RANGE REFERENCE UNITS LAB L501.9520 0.358-3.74 uIU/mL Normal TSH 3.48 Performed By: #### L500.4050, L501.5200, L501.9520, L506.0400 #### [facility] [address] [place], [address] T4 FREE DIRECT Collected: 11/30/2017 Status: F Source: FROID 1:49 PM [facility] REPOSITORY TYPE CODE TESTS RESULT OUT OF RANGE REFERENCE UNITS LAB L506.0400 0.76-1.46 ng/dL Normal T4 FREE 1.08 DIRECT Performed By: #### L500.4050, L501.5200, L501.9520, L506.0400 #### [facility] [address] [place] 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 Will remove Dr. Cheney as PCP. Ivory Love MA PROGRESS Observed: 11/23/2017 Status: COMPLETED Source: [place] 12:06 PM [facility] REPOSITORY HNO ID: [id number] Author: Giancarlo Hayden Service: (none) Author Type: Nurse Practitioner Type: Progress Notes Filed: 11/29/2017 9:09 AM Note Text: Labs filed. Giancarlo Hayden APRN.CNP PROGRESS Observed: 11/23/2017 Status: COMPLETED Source: [place] 10:28 AM [facility] REPOSITORY HNO ID: [id number] Author: Ivory Love Service: (none) Author Type: Chemical Analyst Type: Progress Notes Filed: 11/29/2017 9:09 AM [...] MA CNPTOUTREACH Observed: 11/23/2017 Status: COMPLETED Source: [place] 12:00 AM [facility] REPOSITORY Patient Outreach (FAMPWS) PANDA FLOYD ([id number]) 1940 M Date Time Provider Department 11/23/17 [...] Samantha Ferraro MA, Ave Sanon MA, Ivory Lvoe MA, VANESSA Barragan, Dr. 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 Giancarlo [...] [Z12.11] Order(s):COMP METABOLIC PANEL [SQCMP] Order #: [id number] FUTURE LIPID PANEL BASIC [SQLIPB] Order #: [id number] FUTURE HGB A1C [OOAYW2K] Order #: [id number] FUTURE FECAL OCCULT BLOOD TEST [SQIFOBT] Order #: [id number] FUTURE ALBUMIN RANDOM URINE [SQUALBR] Order #: [id number] FUTURE Prescriptions as of 11/23/2017 Sig: METFORMIN [...] [M25.*INVALID FOR*05/07/2011 Special Screening for Malignant Neoplasms, Haslet*INVALID FOR*10/11/2009 POLYP COLON [D12.6] INVALID FOR*10/11/2009 NEURALGIA/NEURITIS NOS [UVT6771] INVALID FOR* OBESITY NOS [E66.9] INVALID FOR* [...] Status: F Source: NELSON PEPTIDE 2:56 PM [facility] REPOSITORY TYPE CODE TESTS RESULT OUT OF RANGE REFERENCE UNITS LAB L503.6620 0-100 pg/mL High B-TYPE 116.3 PILAR PEP Performed By: #### L503.6620 #### [facility] [address] [place], [address] BASIC METABOLIC Collected: 09/21/2017 Status: F Source: NELSON PROFILE (BMP) 2:56 PM [facility] REPOSITORY TYPE CODE TESTS RESULT OUT [...] 8 Performed By: #### L500.2500, L501.9520 #### [facility] [address] [place], [place], [address] THYROID STIM HORMONE Collected: 09/21/2017 Status: F Source: FROID (TSH) 2:56 PM [facility] REPOSITORY TYPE CODE TESTS RESULT OUT OF RANGE REFERENCE UNITS LAB L501.9520 0.358-3.74 uIU/mL Normal TSH 2.13 Performed By: #### L500.2500, L501.9520 #### [facility] [address] [place], [place], [address] ALLERGIES ALLERGIES DATE TYPE / CODE NAME / CODE REACTION SEVERITY SOURCE 09/10/2018 Drug No Known Unknown [facility] Allergy/416 Allergies/J24976 Hospital 521979(SNOM 0388(RXNORM) Repository ED CT) Drug NO KNOWN [facility] Class/21681 ALLERGIES Other [place] 1003(SNOMED Repository CT) NG/[id number] NO KNOWN [facility] 6(besomebody. System CT) Repository ENCOUNTERS ENCOUNTERS ADMIT/DISCHARGE ACCOUNT NUMBER ADMITTING ENCOUNTER LOCATION SOURCE CLASS 09/13/2018 [id number] Ambulatory [facility] ding:CT Repository 09/10/2018/09/10/19 [id number] Emergency [address] ding:ED Repository 08/08/2018 [id number] Ambulatory BMSBuilding: [facility] Repository 08/06/2018/08/09/20 [id number] Nima Gamez Chi Inpatient [address] ding:TCURoom Repository : UKT76Ghr: 1 08/03/2018 [id number] Kaushik, Ambulatory BMSBuilding: [place] BMS.[facility] Repository 08/03/2018 [id number] Kaushik, Ambulatory BMSBuilding: [place] BMS.[facility] Repository 08/03/2018 [id number] Kaushik, Ambulatory BMSBuilding: [place] BMS.[facility] Repository 08/03/2018 [id number] Kaushik, Ambulatory BMSBuilding: [place] BMS.[facility] Repository 08/03/2018/08/06/20 [id number] Kaushik, Inpatient [address] ding:QV2Idym Repository : VF444Ixz: 1 07/27/2018 [id number] Ambulatory [facility] ding:LAB.FUT Repository URE 07/22/2018 [id number] Ambulatory BMSBuilding: [facility] Repository 07/12/2018/07/13/20 [id number] Ambulatory [address] Repository 06/21/2018 [id number] Ambulatory [facility] ding:CT Repository 05/12/2018/05/13/20 [id number] Ambulatory [address] Repository 03/31/2018/03/31/20 [id number] Ambulatory [address] Repository 03/22/2018 [id number] Ambulatory [facility] ding:CLSP Repository 03/22/2018 [id number] Ambulatory BMSBuilding: [place] BMS.[facility] Repository 03/22/2018 [id number] Ambulatory BMSBuilding: [place] BMS.[facility] Repository 03/22/2018 [id number] Ambulatory BMSBuilding: [facility] Repository 03/16/2018/03/17/20 [id number] Ambulatory [address] [place] Repository 03/16/2018/03/16/20 [id number] Ambulatory [address] [place] Repository 03/16/2018/03/16/20 [id number] Ambulatory [address] [place] Repository 02/10/2018/02/11/20 [id number] Ambulatory [address] [place] Repository 02/10/2018 [id number] Ambulatory [facility] MEDICAL Repository CENTERBuildi ng:CAGWS 01/18/2018/01/19/20 [id number] Ambulatory [address] [place] Repository 01/07/2018/01/08/20 [id number] Ambulatory [address] Repository 01/07/2018/01/08/20 [id number] Ambulatory [address] Other [place] Repository 01/07/2018/01/08/20 [id number] Ambulatory [address] MEDICAL Repository CENTERBuildi ng:[facility] 12/24/2017 [id number] Ambulatory [facility] ding:[facility] Repository 12/24/2017 [id number] Ambulatory BMSBuilding: [facility] Repository 11/30/2017 [id number] Ambulatory [facility] ding:BFAB Repository 10/07/2017 [id number] Ambulatory [facility] ding:[facility] Repository 10/07/2017 [id number] Ambulatory BMSBuilding: [facility] Repository 09/21/2017 [id number] Ambulatory [facility] ding:BFHLAB Repository PAYERS PAYERS ENCOUNTER GUARANTOR PAYER SUBSCRIBER SOURCE 09/13/2018 PANDA Richard Primary PANDA [id number] Insurance:MEDICARE FOZIADOB: [facility] PART A BPolicy Number: [id number] [id number] Repository [address]Ucq: (330) Date:2018-09-13 [phone] () 09/13/2018 Secondary PANDA R [place] Insurance:HUMANA KEENERDOB: Community COMMERCIALPolicy [id number] Hospital Number: Repository [id number] Date:3855-75-99OD [address] [place] [address]HA: 09/13/2018 Tertiary NOT GIVENUNK [place] Insurance:SELF PAY [facility] Hospital Number: Effective Repository Date:2018-09-13 09/10/2018 PANDA R Primary PANDA R [place] [id number] Insurance:MEDICARE KEENERDOB: Community [place] PART A BPolicy Number: [id number], [place] [id number] Repository 655[address]Vzo: 330) Date:2018-09-10 [phone] () 09/10/2018 Secondary PANDA R [place] Insurance:HUMANA KEENERDOB: [facility] [id number] Hospital Number: Repository [id number] Date:1880-35-03EM [address] [place] [address]GR: 09/10/2018 Tertiary NOT GIVENUNK [place] Insurance:SELF PAY [facility] Hospital Number: Effective Repository Date:2018-09-10 08/08/2018 PANDA R Primary PANDA R [place] [id number] Insurance:MEDICARE KEENERDOB: Community [place] PART A BPolicy Number: [id number] [id number] Repository 93755Qyv: (330) Date:2018-08-06 [phone] () 08/08/2018 Secondary PANDA R [place] Insurance:HUMANA KEENERDOB: [facility] [id number] Hospital Number: Repository [id number] Date:9042-45-57UT [address] [place] [address]XH: 08/08/2018 Tertiary NOT GIVENUNK [place] Insurance:SELF PAY [facility] Hospital Number: Effective Repository Date:2018-08-08 08/06/2018 PANDA R Primary PANDA R [place] [id number] Insurance:MEDICARE KEENERDOB: Community [place] PART A BPolicy Number: [id number], [place] [id number] Repository [address]Sva: 330) Date:2018-08-06 [phone] () 08/06/2018 Secondary PANDA R [place] Insurance:HUMANA KEENERDOB: [facility] [id number] Hospital Number: Repository [id number] Date:6270-03-90[address] [address]VS: 08/06/2018 Tertiary NOT GIVENUNK [place] Insurance:SELF PAY [facility] Hospital Number: Effective Repository Date:2018-08-06 08/03/2018 PANDA R Primary PANDA R [place] [id number] Insurance:MEDICARE KEENERDOB: Community [place] PART A BPolicy Number: [id number], [place] [id number] Repository 37390Bxu: 330) Date:2018-06-21 [phone] () 08/03/2018 Secondary PANDA R [place] Insurance:HUMANA KEENERDOB: [facility] [id number] Hospital Number: Repository [id number] Date:3349-15-43[address] [address]PS: 08/03/2018 Tertiary NOT GIVENUNK [place] Insurance:SELF PAY [facility] Hospital Number: Effective Repository Date:2018-08-03 08/03/2018 PANDA R Primary PANDA R [place] [id number] Insurance:MEDICARE KEENERDOB: Community [place] PART A BPolicy Number: [id number] [id number] Repository 226[address]Ase: (231) Date:2018-06-21 [phone] () 08/03/2018 Secondary PANDA R [place] Insurance:HUMANA KEENERDOB: [facility] [id number] Hospital Number: Repository [id number] Date:5289-52-21VR [address] [place] [address]XX: 08/03/2018 Tertiary NOT GIVENUNK [place] Insurance:SELF PAY [facility] Hospital Number: Effective Repository Date:2018-08-03 08/03/2018 PANDA R Primary PANDA R [place] [id number] Insurance:MEDICARE KEENERDOB: Community [place] PART A BPolicy Number: [id number], [place] [id number] Repository 14651Wti: 330) Date:2018-06-21 [phone] () 08/03/2018 Secondary PANDA R [place] Insurance:HUMANA KEENERDOB: [facility] [id number] Hospital Number: Repository [id number] Date:8422-46-52FC [address] [place] [address]KG: 08/03/2018 Tertiary NOT GIVENUNK [place] Insurance:SELF PAY [facility] Hospital Number: Effective Repository Date:2018-08-03 08/03/2018 PANDA R Primary PANDA R [place] [id number] Insurance:MEDICARE KEENERDOB: Community [place] PART A BPolicy Number: [id number] [id number] Repository 93888Fyg: (330) Date:2018-06-21 [phone] () 08/03/2018 Secondary PANDA R [place] Insurance:HUMANA KEENERDOB: [facility] [id number] Hospital Number: Repository [id number] Date:7122-14-95PD [address] [place] [address]ZM: 08/03/2018 Tertiary NOT GIVENUNK [place] Insurance:SELF PAY [facility] Hospital Number: Effective Repository Date:2018-08-03 08/03/2018 PANDA R Primary PANDA R [place] [id number] Insurance:MEDICARE KEENERDOB: Community [place] PART A BPolicy Number: [id number], [place] [id number] Repository 459[address]Eaf: (330) Date:2018-06-21 [phone] () 08/03/2018 Secondary PANDA R [place] Insurance:HUMANA KEENERDOB: [facility] [id number] Hospital Number: Repository [id number] Date:1025-52-98XA [address] [place] [address]JK: 08/03/2018 Tertiary NOT GIVENUNK [place] Insurance:SELF PAY [facility] Hospital Number: Effective Repository Date:2018-06-21 07/27/2018 PANDA R Primary PANDA R [place] [id number] Insurance:MEDICARE KEENERDOB: Community [place] PART A BPolicy Number: [id number], [place] [id number] Repository 98[address]Cbz: 330) Date:2018-07-27 [phone] () 07/27/2018 Secondary PANDA R [place] Insurance:HUMANA KEENERDOB: [facility] [id number] Hospital Number: Repository [id number] Date:4408-91-20PX [address] [place] [address]ZM: 07/27/2018 Tertiary NOT GIVENUNK [place] Insurance:SELF PAY [facility] Hospital Number: Effective Repository Date:2018-07-27 07/22/2018 PANDA R Primary PANDA R [place] [id number] Insurance:MEDICARE KEENERDOB: Community [place] PART A BPolicy Number: [id number], [place] [id number] Repository 43[address]Qkm: (330) Date:2018-07-22 [phone] () 07/22/2018 Secondary PANDA R [place] Insurance:HUMANA KEENERDOB: [facility] COMMERCIALPolicy [id number] Hospital Number: Repository [id number] Date:2620-26-55UU [address] [place] [address]NC: 07/22/2018 Tertiary NOT GIVENUNK [place] Insurance:SELF PAY [facility] Hospital Number: Effective Repository Date:2018-07-22 06/21/2018 PANDA R Primary PANDA R [place] [id number] Insurance:MEDICARE KEENERDOB: Community [place] PART A BPolicy Number: [id number], [place] [id number] Repository 35582Bgb: (618) Date:2018-06-16 [phone] () 06/21/2018 Secondary PANDA R [place] Insurance:HUMANA KEENERDOB: [facility] COMMERCIALPolic [id number] Hospital Number: Repository [id number] Date:0819-28-02BQ [address] [address]AF: 06/21/2018 Tertiary NOT GIVENUNK [place] Insurance:SELF PAY [facility] Hospital Number: Effective Repository Date:2018-06-16 03/22/2018 PANDA R Primary PANDA R [place] [id number] Insurance:MEDICARE KEENERDOB: Community [place] PART A BPolicy Number: [id number], [place] [id number] Repository 88[address]Fdu: (632) Date:2018-03-18 [phone] () 03/22/2018 Secondary PANDA R [place] Insurance:HUMANA KEENERDOB: Community COMMERCIALPolicy [id number] Hospital Number: Repository [id number] Date:5337-54-52KM [address] [place] [address]RM: 03/22/2018 Tertiary NOT GIVENUNK [place] Insurance:SELF PAY [facility] Hospital Number: Effective Repository Date:2018-03-18 03/22/2018 PANDA R Primary PANDA R [place] [id number] Insurance:MEDICARE KEENERDOB: Community [place] PART A BPolicy Number: [id number], [place] [id number] Repository 49373Nej: (330) Date:2018-03-18 [phone] () 03/22/2018 Secondary PANDA R [place] Insurance:HUMANA KEENERDOB: [facility] [id number] Hospital Number: Repository [id number] Date:0835-49-08KN [address] [place] [address]VD: 03/22/2018 Tertiary NOT GIVENUNK [place] Insurance:SELF PAY [facility] Hospital Number: Effective Repository Date:2018-03-22 03/22/2018 PANDA R Primary PANDA R [place] [id number] Insurance:MEDICARE KEENERDOB: Community [place] PART A BPolicy Number: [id number], [place] [id number] Repository 97[address]Pmw: (330) Date:2018-03-18 [phone] () 03/22/2018 Secondary PANDA R [place] Insurance:HUMANA KEENERDOB: [facility] [id number] Hospital Number: Repository [id number] Date:3916-37-84WF [address] [place] [address]FF: 03/22/2018 Tertiary NOT GIVENUNK [place] Insurance:SELF PAY [facility] Hospital Number: Effective Repository Date:2018-03-22 03/22/2018 PANDA R Primary PANDA R [place] [id number] Insurance:MEDICARE KEENERDOB: Community [place] PART A BPolicy Number: [id number], [place] [id number] Repository 90974Tcy: 330) Date:2018-03-18 [phone] () 03/22/2018 Secondary PANDA R [place] Insurance:HUMANA KEENERDOB: [facility] [id number] Hospital Number: Repository [id number] Date:4594-89-74GE [address] [place] [address]NN: 03/22/2018 Tertiary NOT GIVENUNK [place] Insurance:SELF PAY [facility] Hospital Number: Effective Repository Date:2018-03-22 02/10/2018 PANDA R Primary PANDA R [facility] KEENERDOB: Insurance:MEDICARE A KEENERDOB: Health System AND BPolicy Number: [id number] Repository [facility] [id number] [place], [place] Date: [address]Qjt: () 02/10/2018 Secondary PANDA R [facility] Insurance:HUMANA KEENERDOB: Health System MEDICARE [id number] Repository SUPPLEMENTPolicy Number: [id number] Date: 01/07/2018 PANDA R Primary PANDA R [facility] KEENERDOB: Insurance:MEDICARE A KEENERDOB: Health System AND BPolicy Number: [id number] Repository [facility] [id number] [place], [place] Date: [address]Vsl: () 01/07/2018 Secondary PANDA R [facility] Insurance:HUMANA KEENERDOB: Health System MEDICARE [id number] Repository SUPPLEMENTPolicy Number: [id number] Date: 12/24/2017 Panda R Primary Panda R [place] [id number] Insurance:MEDICARE KeenerDOB: [facility] [place] PART A BPolicy Number: [id number] [place], [place] [id number] Repository 176[address]Oqk: 330) Date:2017-12-02 [phone] () 12/24/2017 Secondary Panda R [place] Insurance:HUMANA KeenerDOB: [facility] [id number] Hospital Number: Repository [id number] Date:3903-41-12SJ [address] [address]XU: 12/24/2017 Tertiary NOT GIVENUNK [place] Insurance:SELF PAY [facility] Hospital Number: Effective Repository Date:2017-12-02 12/24/2017 Panda R Primary Panda R [place] [id number] Insurance:MEDICARE KeenerDOB: Community [place] PART A BPolicy Number: [id number], [place] [id number] Repository 937[address]Grw: (330) Date:2017-12-02 [phone] (HP) 12/24/2017 Secondary Panda R [place] Insurance:HUMANA KeenerDOB: [facility] [id number] Hospital Number: Repository [id number] Date:1613-25-54PF [place] 70[address]212-[address]WP: 12/24/2017 Tertiary NOT GIVENUNK [place] Insurance:SELF PAY [facility] Hospital Number: Effective Repository Date:2017-12-24 11/30/2017 Panda R Primary Panda R [place] [id number] Insurance:MEDICARE KeenerDOB: Community [place] PART A BPolicy Number: [id number], [place] [id number] Repository 006[address]Eus: 330) Date:2017-11-30 [phone] () 11/30/2017 Secondary Panda R [place] Insurance:HUMANA KeenerDOB: [facility] [id number] Hospital Number: Repository [id number] Date:6440-25-22[place] [address]WP: 11/30/2017 Tertiary NOT GIVENUNK [place] Insurance:SELF PAY [facility] Hospital Number: Effective Repository Date:2017-11-30 10/07/2017 Panda R Primary Panda R [place] [id number] Insurance:MEDICARE KeenerDOB: Community [place] PART A BPolicy Number: [id number], [place] [id number] Repository 18576Aax: (330) Date:2017-09-22 [phone] (HP) 10/07/2017 Secondary Panda R [place] Insurance:HUMANA KeenerDOB: [facility] [id number] Hospital Number: Repository [id number] Date:7869-89-76VW [place] 7045212-[address]WP: 10/07/2017 Tertiary NOT GIVENUNK [place] Insurance:SELF PAY [facility] Hospital Number: Effective Repository Date:2017-09-22 10/07/2017 Panda R Primary Panda R [place] [id number] Insurance:MEDICARE KeenerDOB: Community [place] PART A BPolicy Number: [id number], [place] [id number] Repository 21699Qmz: (078) Date:2017-09-22 [phone] (HP) 10/07/2017 Secondary Panda R [place] Insurance:HUMANA [facility] [id number] Hospital Number: Repository [id number] Date:[id number] [address] [address]NW: 10/07/2017 Tertiary NOT GIVENUNK [place] Insurance:SELF PAY [facility] Number: Effective Repository Date:2017-10-07 09/21/2017 Panda R Primary Panda R [place] [id number] Insurance:MEDICARE KeenerDOB: [facility] PART A BPolicy [place]: [id number] [id number] Repository [id number]: 330) Date:2017-09-21 [phone] (HP) 09/21/2017 Secondary Panda R [place] Insurance:HUMANA [facility]enerDOB[facility] [id number] Hospital Number: Repository [id number] Date:6108-03-07HU [address] [place] [id number]: 09/21/2017 Tertiary NOT GIVENUNK [place] Insurance:SELF PAY [facility] Number: Effective Repository Date:2017-09-21
== END ==
PROVIDERS: Family Provider Family Medicine; PCP Family Medicine; Referring Provider Family Medicine; Visit Provider Family Medicine
DX: M25.551 Pain in right hip (principal)
CPT/HCPCS: 73700

== ENCOUNTER → 2018-10-27 09:00 | Outpatient (CLI) | payer MEDICARE, OTHER, SELFPAY ==
[2018-10-27 12:28] LABS: Absolute Lymphocyte Count 0.57 X10^3/ul (0.83-4.51); Absolute Neutrophil Count 12.6 X10^3/uL (2.0-7.7); Basophil# 0.01 X10^3/uL; Basophil% 0.1 % (0-1); Hematocrit 42.3 % (40-54); Hemoglobin 12.6 g/dl (13.0-16.5); Lymphocyte # 0.57 X10^3/ul (4.0); Lymphocyte % 4.1 % (19-41); Mean Corp Hgb Conc 29.8 g/gl (32-36); Mean Corpuscular Hgb 28.4 pg (27.0-32.0); Mean Corpuscular Volume 95.3 fL (80-94); Mean Platelet Vol. 9.4 fl (6.2-12.0); Monocyte# 0.62 X10^3/uL; Monocyte% 4.5 % (0-10); Neutrophil # 12.57 X10^3/uL (2.7-7.7); Neutrophil % 91.1 % (47-70); Platelet Count 383 K/mm3 (150-450); RBC Distribution Width CV 15.2 % (11.6-14.6); RBC Distribution Width SD 52.5 fl (35.1-43.9); Red Blood Count 4.44 M/mm3 (4.6-6.2); White Blood Count 13.8 K/mm3 (4.4-11.0)
[2018-10-27 12:33] LABS: Differential Indicated SCAN CRITERIA MET; POSITIVE COUNT NO; POSITIVE DIFFERENTIAL YES; POSITIVE MORPHOLOGY NO
[2018-10-27 12:34] LABS: AST(SGOT) 48 U/L (15-37); Alanine Aminotransfer ALT/SGPT 51 U/L (16-61); Albumin, Serum 3.7 g/dL (3.2-5.0); Alkaline Phosphatase 125 U/L (45-117); Anion Gap 10 (5-15); BUN 25 mg/dL (7-18); BUN/Creat Ratio 20.7 RATIO (10-20); Calcium,Total 8.8 mg/dL (8.5-10.1); Chloride 104 mmol/L (98-107); Creatinine, Serum 1.21 mg/dL (0.70-1.30); EST Glomerular Filtration Rate 61 mL/min (>60); Est Glom Filt Rate - Afr Amer 74 mL/min (>60); Globulin 3.7 g/dL (2.2-4.2); Glucose 177 mg/dL (74-106); Potassium 4.1 mmol/L (3.5-5.1); Protein, Total 7.4 g/dL (6.4-8.2); Sodium Level 140 mmol/L (136-145)
== END ==
PROVIDERS: Family Provider Family Medicine; PCP Family Medicine; Visit Provider Family Medicine
DX: I48.91 Unspecified atrial fibrillation (principal); R60.9 Edema, unspecified; R06.00 Dyspnea, unspecified
CPT/HCPCS: 36415; 80053; 83880; 85025

== ENCOUNTER → 2018-11-16 10:07 | Outpatient (CLI) | payer MEDICARE, OTHER, SELFPAY ==
[2018-11-16 12:43] LABS: Absolute Lymphocyte Count 0.97 X10^3/ul (0.83-4.51); Absolute Neutrophil Count 7.4 X10^3/uL (2.0-7.7); Basophil# 0.03 X10^3/uL; Basophil% 0.3 % (0-1); Eosinophil# 0.05 X10^3/uL; Eosinophils% 0.5 % (0-5); Hematocrit 43.7 % (40-54); Hemoglobin 13.7 g/dl (13.0-16.5); Lymphocyte # 0.97 X10^3/ul (4.0); Lymphocyte % 10.6 % (19-41); Mean Corp Hgb Conc 31.4 g/gl (32-36); Mean Corpuscular Hgb 28.5 pg (27.0-32.0); Mean Platelet Vol. 9.5 fl (6.2-12.0); Monocyte# 0.74 X10^3/uL; Monocyte% 8.1 % (0-10); Neutrophil # 7.38 X10^3/uL (2.7-7.7); Neutrophil % 80.3 % (47-70); Platelet Count 255 K/mm3 (150-450); RBC Distribution Width CV 15.6 % (11.6-14.6); White Blood Count 9.2 K/mm3 (4.4-11.0)
[2018-11-16 12:46] LABS: POSITIVE COUNT NO; POSITIVE DIFFERENTIAL NO; POSITIVE MORPHOLOGY NO
[2018-11-16 13:36] LABS: Anion Gap 8 (5-15); BUN 22 mg/dL (7-18); BUN/Creat Ratio 17.6 RATIO (10-20); Calcium,Total 8.7 mg/dL (8.5-10.1); Chloride 102 mmol/L (98-107); Creatinine, Serum 1.25 mg/dL (0.70-1.30); EST Glomerular Filtration Rate 59 mL/min (>60); Est Glom Filt Rate - Afr Amer 71 mL/min (>60); Glucose 148 mg/dL (74-106); Magnesium 2.1 mg/dL (1.6-2.6); Potassium 3.5 mmol/L (3.5-5.1); Sodium Level 138 mmol/L (136-145); Thyroid Stim Hormone (TSH) 2.58 uIU/mL (0.358-3.74); Uric Acid 6.4 mg/dL (3.5-7.2)
== END ==
PROVIDERS: Family Provider Family Medicine; PCP Family Medicine; Visit Provider Family Medicine
DX: I48.91 Unspecified atrial fibrillation (principal); I10 Essential (primary) hypertension; M10.9 Gout, unspecified
CPT/HCPCS: 36415; 80048; 83735; 84443; 84550; 85025

== ENCOUNTER → 2019-01-19 13:25 | Outpatient (CLI) | payer MEDICARE, OTHER, SELFPAY ==
[2019-01-19 15:48] LABS: Anion Gap 8 (5-15); BUN 34 mg/dL (7-18); Calcium,Total 9.2 mg/dL (8.5-10.1); Chloride 97 mmol/L (98-107); Creatinine, Serum 1.48 mg/dL (0.70-1.30); EST Glomerular Filtration Rate 49 mL/min (>60); Est Glom Filt Rate - Afr Amer 59 mL/min (>60); Glucose 118 mg/dL (74-106); Potassium 3.1 mmol/L (3.5-5.1); Sodium Level 136 mmol/L (136-145)
== END ==
PROVIDERS: Family Provider Family Medicine; PCP Family Medicine; Visit Provider Family Medicine
DX: R60.0 Localized edema (principal)
CPT/HCPCS: 36415; 80048; 83735

== ENCOUNTER 2019-01-25 07:26 | Inpatient (IN) | payer MEDICARE, OTHER, SELFPAY ==
[2019-01-25] VITALS (9 sets, daily range): BP systolic 122–143; BP diastolic 63–81; PULSE 69–79; RESP 16–18; TEMP 36.6–36.9; O2SAT 92–94; BMI 35.4
[2019-01-25] MEDS: 0.9% Normal Saline 1,000 ML 125 ML IV (08:11)
[2019-01-25 08:18] LABS: Absolute Lymphocyte Count 0.58 X10^3/ul (0.83-4.51); Absolute Neutrophil Count 13.2 X10^3/uL (2.0-7.7); Basophil# 0.01 X10^3/uL; Basophil% 0.1 % (0-1); Eosinophil# 0.01 X10^3/uL; Eosinophils% 0.1 % (0-5); Hemoglobin 15.3 g/dl (13.0-16.5); Lymphocyte # 0.58 X10^3/ul (4.0); Mean Corp Hgb Conc 33.3 g/gl (32-36); Mean Corpuscular Hgb 29.4 pg (27.0-32.0); Mean Corpuscular Volume 88.5 fL (80-94); Mean Platelet Vol. 9.3 fl (6.2-12.0); Monocyte# 0.79 X10^3/uL; Monocyte% 5.4 % (0-10); Neutrophil # 13.21 X10^3/uL (2.7-7.7); Neutrophil % 90.2 % (47-70); Platelet Count 245 K/mm3 (150-450); RBC Distribution Width CV 16.6 % (11.6-14.6); RBC Distribution Width SD 53.9 fl (35.1-43.9); White Blood Count 14.6 K/mm3 (4.4-11.0)
[2019-01-25 08:19] LABS: International Normalized Ratio 1.3; POSITIVE COUNT NO; POSITIVE DIFFERENTIAL YES; POSITIVE MORPHOLOGY NO; Prothrombin Time (Protime)PT. 15.9 SECONDS (11.7-14.9)
[2019-01-25 08:22] LABS: Differential Indicated SCAN CRITERIA MET
--- NOTE | 2019-01-25 08:25 | CT_ITS ---
STUDY: CT ABDOMEN AND PELVIS WITH CONTRAST REASON FOR EXAM: Male, 78 years old. Rectal bleeding. Abdominal pain. RADIATION DOSAGE (If Supplied By Facility): CTDIvol = ( 22.06 ) mGy, DLP = ( 1329.87 ) mGycm TECHNIQUE: Transaxial images were obtained from the dome of the diaphragm to the symphysis pubis without oral contrast. 100CC IV Isovue 300 was administered. Sagittal and coronal images were reconstructed. Individualized dose optimization techniques were used for this CT. COMPARISON: None. FINDINGS: Mild degree of increased linear markings at the lung bases suggestive of mild scarring. Coronary artery calcification. There are multiple hepatic cysts throughout the right and left lobes of the liver. The largest measures 4.6 cm x 4.6 cm. There are multiple gallstones. Normal spleen. Normal pancreas. Normal bilateral adrenal glands. There is a 3.3 cm x 2.9 cm cyst in lower pole of the right kidney. 1 cm cyst in the posterior upper pole of the left kidney. Normal visualized stomach. Normal small intestine. There is evidence of colitis involving the distal portion of the transverse colon as well as the descending colon, sigmoid colon. The appendix is visualized and appears normal. There is diffuse atherosclerotic calcification of the abdominal aorta, without a demonstrated aneurysm. Normal inferior vena cava. There is borderline retroperitoneal lymphadenopathy with enlarged nodes no greater than 10mm in the short axis diameter. Normal urinary bladder. There are prostatic calcifications. The prostate measures 5.4 signs by 3.8 cm. This causes indentation at the bladder base. Normal abdominal wall. There are diffuse degenerative changes of the visualized lumbar spine. CT/Abdomen/Pelvis W IV Cont ONLY IMPRESSION: Colitis of the distal portion of the transverse colon as well as the descending colon and sigmoid colon. Multiple hepatic cysts. Bilateral renal cysts. Multiple gallstones. Electronically Signed: Dong Multani, at 9:13 EDT , Service support ,
[2019-01-25 08:27] LABS: Anion Gap 6 (5-15); BUN 32 mg/dL (7-18); BUN/Creat Ratio 23.9 RATIO (10-20); Calcium,Total 9.2 mg/dL (8.5-10.1); Chloride 95 mmol/L (98-107); Creatinine, Serum 1.34 mg/dL (0.70-1.30); EST Glomerular Filtration Rate 54 mL/min (>60); Est Glom Filt Rate - Afr Amer 66 mL/min (>60); Estimated Creatinine Clearance 43.97 ml/min; Glucose 182 mg/dL (74-106); Sodium Level 135 mmol/L (136-145)
--- NOTE | 2019-01-25 08:46 | ED.RN ---
LAB RESULTED LACTIC 2.1, PHYSICIAN NOTIFIED
[2019-01-25 08:47] LABS: Lactic Acid 2.1 mmol/L (0.4-2.0)
--- NOTE | 2019-01-25 09:19 | EKG12_ITS ---
Test Reason : GI BLEED Blood Pressure : / mmHG Vent. Rate : 069 BPM Atrial Rate : 330 BPM P-R Int : 000 ms QRS Dur : 104 ms QT Int : 400 ms P-R-T Axes : 000 034 233 degrees QTc Int : 428 ms Atrial flutter with variable A-V block ST&T wave abnormality, consider anterior lateral ischemia Abnormal ECG Confirmed by BHARTI LOPES, LAURA ([id number]), newspaper managing editor QUENTIN RIVERA ([id number]) on 01/27/2019 6:35:07 AM Referred By: JESSEE Confirmed By:LAURA HAY MD
--- NOTE | 2019-01-25 09:25 | NURSING ---
DR CROW TIJERINA
--- NOTE | 2019-01-25 09:27 | NURSING ---
PCU LOWER GI BLEED, HYPOKALEMIA KORAM
--- NOTE | 2019-01-25 09:32 | ED.VISSUMM ---
- ER Visit Summary Date of Service: 01/25/19 Chief Complaint: [Rectal bleeding] History of Present Illness: The patient is a 78 M resents the emergency department with rectal bleeding since 9 PM last night. Patient states that initially had some lower abdominal discomfort followed by bloody stool. Patient had a total of 3 bloody stools since last night. Patient states the lower abdominal discomfort is improved but still has some mild discomfort. Patient does have a history of A. fib and is on Coumadin currently. His last INR was about a week ago and was 1.2. Patient has a history of CHF, diabetes, and hypertension. He has not had rectal bleeding before. Patient has had a colonoscopy in the last was about 3 or [address] Thomas Lange. Patient denies urinary symptoms. He denies any fever. He has not had any vomiting. [] Physical Examination: [HEENT-PERRLA, EOMI. Cranial nerves II through XII grossly intact. TMs clear. Mucous membranes moist. No adenopathy. Cardiovascular-regular rate and rhythm without murmur or ectopy Lungs-clear to auscultation, chest wall stable without crepitus or subcu emphysema Abdomen-normoactive bowel sounds, soft. Patient has some mild lower abdominal discomfort on exam. Abdomen slightly distended. No rebound, rigidity, or perineal signs. Rectal exam-patient has blood about the anus. No hemorrhoids noted no fissures noted. Extremities-intact ?4, normal range of motion, normal pulses, atraumatic] Test Results: [CBC with differential showed a white count of 14.6, hemoglobin 15, hematocrit 46, platelets 245. Chemistries unremarkable other than slightly depressed potassium at 3.0. BUN was 32 and creatinine 1.34. INR was 1.3. Lactate was 2.1. CT scan of the abdomen and pelvis with IV contrast showed colitis of the transverse colon as well as the descending and sigmoid colon.] Emergency Department Course and Treatment: [Patient was given normal saline. Given patient's history of A. fib and elevated lactate and evidence of colitis on CT I suspect likely ischemic colitis as the etiology of his symptoms. Case was discussed with Dr. Thomas Lange. Patient case also discussed with hospitalist who will evaluate patient for admission.] Treatment Plan: [Admit ] Disposition: [Admit] Impression: [Ischemic colitis Rectal bleeding Coumadin coagulopathy Hypokalemia] This note was generated with [employer] ([employer]) dictation software. It may contain incorrect words, spelling, and punctuation that were not noted in review of the chart prior to signing ED Disposition - Plan for ED Patient: Referrals: Man Cha MD [Primary Care Provider] -
--- NOTE | 2019-01-25 10:26 | HP.PCM_ITS ---
History of Present Illness Date of Admission: 01/25/19 Chief Complaint: abdominal pain, rectal bleeding The patient is a 78 year old M with a past medical history as listed which includes hypertension, diabetes mellitus and chronic A. fib on Coumadin therapy. He was admitted through the ED on 01/25/2019 with a complaint of lower abdominal pain and rectal bleeding of one day duration. Patient states on the night before presentation he noticed that he was having severe cramping lower abdominal pain which he rated at about 7/10. He subsequently had rectal bleeding with bowel movements. He states his bowel movement was initially hard but subsequently became watery. Patient is on Coumadin and his last INR checked was around 1.2 a week ago and was 1.3 on admission. He has not had rectal bleeding before he denies any history of diverticular disease. He has been compliant with his medications and had a colonoscopy about 3 or [address] Mckeon. He admitted to feeling lightheaded or dizzy and having palpitations at time of symptoms but these had resolved at time of review. In the ED, vitals were significant for hemoglobin of 15, white cell count of 14.6 and platelets of 245. Potassium was 3 and creatinine was 1.34. INR was 1.3 and lactic acid was 2.1. CT of the abdomen and pelvis done with IV contrast showed colitis of the transverse as well as descending and sigmoid colon. He was started on IV fluids and is been admitted to be managed for rectal bleeding likely due to acute is chemic colitis. [] Past Medical History Past Medical History (Chronic Problems): Chronic Problems Atrial fibrillation (Chronic) Right rotator cuff tear arthropathy (Chronic) Diabetes mellitus (Chronic) Hypertension (Chronic) Gout (Chronic) Osteoarthritis (Chronic) Chronic diastolic heart failure (Chronic) Kidney stones (Chronic) Allergies No Known Allergies Allergy (Verified 01/25/19 07:27) Home Medications: Ambulatory Orders Medication Instructions Recorded Allopurinol 300 mg PO DAILY 07/23/15 metFORMIN HCl [Glucophage] 500 mg PO BIDCM 07/23/15 Amlodipine [Norvasc] 5 mg PO DAILY 03/21/18 Oxybutynin Chloride [Ditropan Xl] 10 mg PO BID 03/21/18 Warfarin [Coumadin] 2.5 mg PO QODAY 03/21/18 hydroCHLOROthiazide 12.5 mg PO DAILY 03/21/18 [Hydrochlorothiazide] Magnesium 250 mg PO DAILY 11/30/18 Vitamin B Complex 1 each PO DAILY 07/22/18 Acetaminophen [Tylenol] 1,000 mg PO Q8H PRN PRN 08/06/18 Albuterol Inhaler [Ventolin Hfa] 2 puff INHALATION Q4H PRN PRN #1 08/08/18 inhaler Furosemide [Lasix] 20 mg PO MOWEFR #12 tablet 08/08/18 Metoprolol(XL)Succ [Toprol Xl 50 mg PO DAILY #30 tablet 08/08/18 (Beta Zeina)] Polyethylene Glycol 3350 [Miralax] 17 gm PO DAILY #30 packet 08/08/18 Potassium Chloride [K-Dur] 20 meq PO DAILYCM #30 tablet 08/08/18 Senna/Docusate Sodium [Senokot-S] 2 tab PO BID PRN PRN #60 tab 08/08/18 Gabapentin [Neurontin] 100 mg PO TID 01/25/19 Surgical History: herniorrhaphy, total knee arthroplasty - Bilateral., - - Right wrist fracture, Kidney stones, Bilateral carpal tunnel release, back surgery. Psychiatric History: No pertinent psych hx Smoking Status: Current every day smoker Tobacco Use: Pipe Alcohol: Occasional Drugs: None - *Family History Maternal History Items: No pertinent history Paternal History Items: No pertinent history Sibling History Items: Cancer, Diabetes, Heart Disease Review of Systems Constitutional: Denies: Chills, Fever, Malaise, Weakness, Weight Change, Fatigue Eyes: Denies: Blurred vision HEENT: Denies: Head Aches, Sinus Congestion, Sinus Drainage Cardiovascular: Denies: Chest Pain, Palpitations Respiratory: Denies: Cough, Shortness of Breath, Shortness of breath at rest, Shortness of breath upon exertion, Sputum production Gastrointestinal: Reports: Diarrhea, Hematochezia. Denies: Abdominal Pain, Nausea, Vomiting Genitourinary: Denies: Dysuria Musculoskeletal: Denies: Joint Pain, Joint Tenderness Skin: Denies: Rash, Wounds Neurological: Denies: Numbness, Tingling, Focal weakness Psychiatric: Denies: Anxiety, Depression, Homicidal Ideations, Suicidal Ideations Hematologic/ Lymphatic: Denies: Easy Bruising, Easy Bleeding VTE Information - Inpt Only VTE Present on Admission: No VTE Mechan Device Prophylaxis: SCD's VTE Pharm Prophylaxis ordered?: No Reason prophylaxis not ordered:: Medical Contraindication - rectal bleeding Patient Problems: Active and Suspected Problems Rectal bleeding (Acute) Acute hemorrhagic colitis (Acute) - Physical Exam General: Alert, Oriented x3, Cooperative, No apparent distress HEENT: Atraumatic, PERRLA, EOMI, Normocephalic Oral: Moist Mucosa Neck: Supple, No JVD, Negative Carotid Bruits Lungs: Clear to auscultation, Normal air movement, No rhonchi, No wheeze, No rales Cardiovascular: Regular rate, Regular Rhythm, Normal S1, Normal S2, No murmurs Abdomen: Bowel Sounds Present, Soft, Non Tender, Non-Distended, No Hepato- splenomegaly Extremities: No clubbing, No cyanosis, No edema, Capillary Refill Less than 3 Seconds Skin: No rashes, No breakdown Musculoskeletal: No Tenderness to Palpation of Joints or Extremities Lymphatic: No Cervical, Supraclavicular, or Inguinal Adenopathy Neurological: Cranial nerves II-XII grossly intact, Neuro grossly intact, Motor Exam 5/5 strength throughout Psych/Mental Status: Normal Affect, Appropriate, Alert and oriented to time, place, person, mood and affect Vital Signs Temp Pulse Resp BP Pulse Ox 98.4 F 70 18 131/81 H 94 01/25/19 07:27 01/25/19 07:27 01/25/19 09:43 01/25/19 07:27 01/25/19 07:27 Oxygen Delivery Method Room Air Weight: 240 lb Body Mass Index (BMI) 35.4 Finger Stick Blood Glucose 196 Laboratory Tests Past 24 Hrs 01/25/19 01/25/19 01/25/19 07:58 07:58 07:58 WBC 14.6 H RBC 5.20 Hgb 15.3 Hct 46.0 MCV 88.5 MCH 29.4 MCHC 33.3 RDW 16.6 H RDW Differential 53.9 H Plt Count 245 MPV 9.3 Immature Gran % (Auto) 0.200 Neut % (Auto) 90.2 H Lymph % (Auto) 4.0 L [place] % (Auto) 5.4 Eos % (Auto) 0.1 Baso % (Auto) 0.1 Absolute Neuts (auto) 13.2 H Absolute Lymphs (auto) 0.58 L Total Counted Not Reportable PT INR Sodium 135 L Potassium 3.0 L Chloride 95 L Carbon Dioxide 34.0 H Anion Gap 6 BUN 32 H Creatinine 1.34 H Estim Creat Clear Calc 43.97 Est GFR (MDRD) Af Amer 66 Est GFR (MDRD) Non-Af 54 L BUN/Creatinine Ratio 23.9 H Glucose 182 H Lactic Acid 2.1 H Calcium 9.2 Blood Type Antibody Screen 01/25/19 01/25/19 07:58 07:58 WBC RBC Hgb Hct MCV MCH MCHC RDW RDW Differential Plt Count MPV Immature Gran % (Auto) Neut % (Auto) Lymph % (Auto) [place] % (Auto) Eos % (Auto) Baso % (Auto) Absolute Neuts (auto) Absolute Lymphs (auto) Total Counted PT 15.9 H INR 1.3 Sodium Potassium Chloride Carbon Dioxide Anion Gap BUN Creatinine Estim Creat Clear Calc Est GFR (MDRD) Af Amer Est GFR (MDRD) Non-Af BUN/Creatinine Ratio Glucose Lactic Acid Calcium Blood Type O POSITIVE Antibody Screen NEGATIVE Diagnostic Data Abdomen/Pelvis CT 01/25/19 08:25 IMPRESSION: Colitis of the distal portion of the transverse colon as well as the descending colon and sigmoid colon. Multiple hepatic cysts. Bilateral renal cysts. Multiple gallstones. Electronically Signed: Dong Nerissa, at 9:13 EDT , Service support , Assessment/Plan All Active Problems Rectal bleeding (Acute) Acute hemorrhagic colitis (Acute) 78 y/o male admitted with a complaint of abdominal pain and rectal bleeding 1. Lower GI bleed likely due to acute ischemic colitis * admit to PCU with telemetry * CT abdomen showed colitis of the transverse, descending and sigmoid colon * keep NPO * hydrate with IVF NS @ 125cc/hr; lactic acid was elevated at 2.1 and white cell count was 14.6 which is likely reactive. * hold all BP meds; goal is to keep BP>140/90 to ensure adequate perfusion of colon * hold coumadin- INR was 1.3 * general surgery consulted * give IV ciprofloxacin and IV metronidazole * 2. Hypokalemia: K is 3. Will replace and monitor 3. Lactic acidosis: lactic acid is 2.1. Likely due to decreased perfusion of colon. Hydrate with IV fluids and recheck. 4. Afib: * metoprolol on hold. Currently rate and rhythm controlled. * coumadin on hold. * in light of subtherapeutic INR, an embolic/thrombotic cause of the ischemic colitis cannot be ruled out. 5. Diabetes mellitus: home Metformin on hold. Insulin sliding scale. Accu- Cheks AC at bedtime. DVT prophylaxis: SCDs. Coumadin on hold. Code Visit Inpatient E&M: 18687 Init Hosp L3
--- NOTE | 2019-01-25 10:45 | CON.PCM_ITS ---
Problem List (1) Rectal bleeding Status: Acute (2) Acute hemorrhagic colitis Status: Acute Reason for Consult Date of Consultation: 01/25/19 History of Present Illness: The patient is a 78 year old M who presented to the emergency room this morning. I have been asked to see him in surgical consultation by Dr. Villar a written compromise surgical consult will be available in the electronic medical records. 78-year-old gentleman. He has paroxysmal atrial fibrillation. By report he was in atrial flutter upon presentation. Last night he developed a low suprapubic abdominal pain. This was followed by stool mixed with blood. This was followed by a large amount of clotted blood. He then remained at home the remainder of the evening. He presented to the emergency room this morning. At this time he states he has not received any pain medication and the pain has essentially resolved. He has not had any fever or chills or sweats. There is been no nausea or vomiting. Within the recent past apparently he had significant swelling of bilateral lower extremities. He had swelling to the point where he had spontaneously formed blisters that were weeping. He was seen by primary care and had his PRN furosemide doubled. The patient apparently took it for 2 weeks. He lost 27 pounds in fluid weight. The weeping from his legs ceased. He states that he mowed the lawn yesterday by writing on a mower. Claims that took him half a day. He did not take his furosemide yesterday at all. He states that he has never had a low abdominal pain like this in the past. He states that he has not had any previous rectal bleeding. He is on chronic Coumadin for his arrhythmia. However his INR is only 1.3. White blood cell count is 14.6 with hemoglobin 15.3 and hematocrit 46 and a platelet count of 24 5,000 with 90% segs. BUN is chronically elevated at 34. Creatinine elevated 1.48. Potassium is low at 3.1. The patient is a chronic tobacco user smoking a pipe. Previous abdominal surgery includes an umbilical hernia repair with mesh. Through the emergency room he had a CT scan. This demonstrates scarring of the lung bases. Multiple hepatic cysts. A 3.3 cm right kidney cyst. Diffuse apht hous chronic calcification of the abdominal aorta without aneurysm. Prostate 5.4 x 3.8 cm. Diffuse inflammation of the distal transverse descending and sigmoid colon consistent with acute colitis. No free air. The patient's most recent colonoscopy was performed by myself on December 04, 2011 at the [facility] surgery [place]. At that time unfortunately the patient's bowel prep was very poor making inspection compromised from small polyps. Procedure was completed with recommendation for follow-up in 5 years. The patient has not been compliant. The patient has a personal history of colon polyps. They have previously been benign. He currently is denying any chest pain or shortness of breath no cough. He is denying any abdominal pain. He is denying an area history of DVT. The patient admits that he is extraordinarily sedentary. 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 making movement difficult because they are numb Past Medical History Past Medical History (Chronic Problems): Chronic Problems Atrial fibrillation (Chronic) Right rotator cuff tear arthropathy (Chronic) Diabetes mellitus (Chronic) Hypertension (Chronic) Gout (Chronic) Osteoarthritis (Chronic) Chronic diastolic heart failure (Chronic) Kidney stones (Chronic) Allergies No Known Allergies Allergy (Verified 01/25/19 07:27) Home Medications: Ambulatory Orders Medication Instructions Recorded Allopurinol 300 mg PO DAILY 07/23/15 metFORMIN HCl [Glucophage] 500 mg PO BIDCM 07/23/15 Amlodipine [Norvasc] 5 mg PO DAILY 03/21/18 Oxybutynin Chloride [Ditropan Xl] 10 mg PO BID 03/21/18 Warfarin [Coumadin] 2.5 mg PO QODAY 03/21/18 hydroCHLOROthiazide 12.5 mg PO DAILY 03/21/18 [Hydrochlorothiazide] Magnesium 250 mg PO DAILY 07/22/18 Vitamin B Complex 1 each PO DAILY 07/22/18 Acetaminophen [Tylenol] 1,000 mg PO Q8H PRN PRN 08/06/18 Albuterol Inhaler [Ventolin Hfa] 2 puff INHALATION Q4H PRN PRN #1 08/08/18 inhaler Furosemide [Lasix] 20 mg PO MOWEFR #12 tablet 08/08/18 Metoprolol(XL)Succ [Toprol Xl 50 mg PO DAILY #30 tablet 08/08/18 (Beta Zeina)] Polyethylene Glycol 3350 [Miralax] 17 gm PO DAILY #30 packet 08/08/18 Potassium Chloride [K-Dur] 20 meq PO DAILYCM #30 tablet 08/08/18 Senna/Docusate Sodium [Senokot-S] 2 tab PO BID PRN PRN #60 tab 08/08/18 Gabapentin [Neurontin] 100 mg PO TID 01/25/19 Surgical History: herniorrhaphy, total knee arthroplasty - Bilateral., - - Right wrist fracture, Kidney stones, Bilateral carpal tunnel release, back surgery. Psychiatric History: No pertinent psych hx Smoking Status: Current every day smoker - *Family History Maternal History Items: No pertinent history Paternal History Items: No pertinent history Review of Systems Constitutional: Denies: Anorexia, Chills, Fever Eyes: Denies: Blurred vision HEENT: Denies: Difficulty Swallowing Cardiovascular: Denies: Chest Pain Respiratory: Denies: Cough Gastrointestinal: Reports: Hematochezia. Denies: Vomiting Skin: Reports: Wounds - Recent history of spontaneously weeping skin blisters bilateral lower extremities now improved Neurological: Reports: Balance problems Endocrine: Denies: Change in Body Habitus Patient Problems: Active and Suspected Problems Rectal bleeding (Acute) Acute hemorrhagic colitis (Acute) - Physical Exam General: Alert, Oriented x3, No apparent distress HEENT: - - Cheeks are very reddish in appearance Oral: Moist Mucosa Neck: Supple Lungs: Clear to auscultation, Normal air movement Cardiovascular: Regular rate, - Abdomen: Bowel Sounds Present, Soft, Non Tender, Obese Extremities: No Calf Tenderness, - - Hyperpigmentation bilateral lower extremities with dry blistered areas bilateral pretibial areas. 1+ bilateral malleolar pitting edema Musculoskeletal: No Tenderness to Palpation of Joints or Extremities Neurological: - - Cognition intact Psych/Mental Status: Normal Affect Vital Signs Temp Pulse Resp BP Pulse Ox 98.4 F 70 18 131/81 H 94 01/25/19 07:27 01/25/19 07:27 01/25/19 09:43 01/25/19 07:27 01/25/19 07:27 Oxygen Delivery Method Room Air Weight: 240 lb Body Mass Index (BMI) 35.4 Finger Stick Blood Glucose 196 Laboratory Tests Past 24 Hrs 01/25/19 01/25/19 01/25/19 07:58 07:58 07:58 WBC 14.6 H RBC 5.20 Hgb 15.3 Hct 46.0 MCV 88.5 MCH 29.4 MCHC 33.3 RDW 16.6 H RDW Differential 53.9 H Plt Count 245 MPV 9.3 Immature Gran % (Auto) 0.200 Neut % (Auto) 90.2 H Lymph % (Auto) 4.0 L [place] % (Auto) 5.4 Eos % (Auto) 0.1 Baso % (Auto) 0.1 Absolute Neuts (auto) 13.2 H Absolute Lymphs (auto) 0.58 L Total Counted Not Reportable PT INR Sodium 135 L Potassium 3.0 L Chloride 95 L Carbon Dioxide 34.0 H Anion Gap 6 BUN 32 H Creatinine 1.34 H Estim Creat Clear Calc 43.97 Est GFR (MDRD) Af Amer 66 Est GFR (MDRD) Non-Af 54 L BUN/Creatinine Ratio 23.9 H Glucose 182 H Lactic Acid 2.1 H Calcium 9.2 Blood Type Antibody Screen 01/25/19 01/25/19 07:58 07:58 WBC RBC Hgb Hct MCV MCH MCHC RDW RDW Differential Plt Count MPV Immature Gran % (Auto) Neut % (Auto) Lymph % (Auto) [place] % (Auto) Eos % (Auto) Baso % (Auto) Absolute Neuts (auto) Absolute Lymphs (auto) Total Counted PT 15.9 H INR 1.3 Sodium Potassium Chloride Carbon Dioxide Anion Gap BUN Creatinine Estim Creat Clear Calc Est GFR (MDRD) Af Amer Est GFR (MDRD) Non-Af BUN/Creatinine Ratio Glucose Lactic Acid Calcium Blood Type O POSITIVE Antibody Screen NEGATIVE Assessment/Plan All Active Problems Rectal bleeding (Acute) Acute hemorrhagic colitis (Acute) 78-year-old gentleman with findings consistent with rectal bleeding and suspected acute colitis. He does not take NSAIDs. He does have paroxysmal atrial fibrillation and presented in atrial flutter. He is under anticoagulated on Coumadin. Findings would be consistent with an acute ischemic colitis p ossible embolic possible thrombotic possible undetermined etiology. Clinically he is denying any abdominal pain and he has not received any analgesics. Clinically he has a obese but otherwise benign abdomen. I recommend bowel rest. I recommend mobilization and incentive spirometry. I anticipate serial clinical exams. He will be treated medically for his acute colitis and would concur with an tibiotic management. I do not suspect that he will require a colonoscopy during this hospitalization. I do have concerns that furosemide achieved a 27 pound weight loss for him. Not clear whether this was fluid retention secondary to cardiac issues or chronic renal failure. This clearly would affect the potential for future surgical inspection. I appreciate the opportunity of assisting with the surgical care and will follow with you. Thomas Lange M.D., F.A.C.S.
[2019-01-25 11:15] LABS: Bedside Glucose 154 mg/dL (70-110)
[2019-01-25] MEDS: Insulin Lispro 100 UNIT/ML INSULN.PEN SQ (11:20)
[2019-01-25 12:08] LABS: Reflex Lactate? Y
[2019-01-25 12:50] LABS: Lactic Acid 2.4 mmol/L (0.4-2.0)
[2019-01-25] MEDS: Ciprofloxacin 200 MG/100 ML BAG 100 MG IV ×2 (13:06→21:43)
[2019-01-25] MEDS: metroNIDAZOLE 500 MG/100 ML BAG 100 MG IV ×2 (13:06→21:43)
[2019-01-25] MEDS: 0.9% Normal Saline 1,000 ML 150 ML IV ×2 (13:22→20:24)
[2019-01-25 15:51] LABS: Lactic Acid 2.1 mmol/L (0.4-2.0)
[2019-01-25 17:06] LABS: Bedside Glucose 147 mg/dL (70-110)
[2019-01-25 19:17] LABS: Reflex Lactate? Y
[2019-01-25 20:10] LABS: Lactic Acid 1.4 mmol/L (0.4-2.0)
[2019-01-26] VITALS (9 sets, daily range): BP systolic 128–147; BP diastolic 66–90; PULSE 65–92; RESP 16–18; TEMP 36.4–36.6; O2SAT 95–98
[2019-01-26 00:16] LABS: Bedside Glucose 123 mg/dL (70-110)
[2019-01-26] MEDS: 0.9% Normal Saline 1,000 ML 150 ML IV ×2 (03:15→11:12)
[2019-01-26 05:30] LABS: Absolute Lymphocyte Count 1.01 X10^3/ul (0.83-4.51); Absolute Neutrophil Count 10.2 X10^3/uL (2.0-7.7); Basophil# 0.02 X10^3/uL; Basophil% 0.2 % (0-1); Eosinophil# 0.06 X10^3/uL; Eosinophils% 0.5 % (0-5); Hematocrit 41.7 % (40-54); Hemoglobin 13.7 g/dl (13.0-16.5); Lymphocyte # 1.01 X10^3/ul (4.0); Lymphocyte % 8.1 % (19-41); Mean Corp Hgb Conc 32.9 g/gl (32-36); Mean Corpuscular Hgb 28.9 pg (27.0-32.0); Mean Platelet Vol. 9.4 fl (6.2-12.0); Monocyte# 1.12 X10^3/uL; Platelet Count 199 K/mm3 (150-450); Red Blood Count 4.74 M/mm3 (4.6-6.2); White Blood Count 12.4 K/mm3 (4.4-11.0)
[2019-01-26 05:42] LABS: POSITIVE COUNT NO; POSITIVE DIFFERENTIAL NO; POSITIVE MORPHOLOGY NO
[2019-01-26 05:56] LABS: Anion Gap 9 (5-15); BUN 21 mg/dL (7-18); BUN/Creat Ratio 20.6 RATIO (10-20); Calcium,Total 8.2 mg/dL (8.5-10.1); Chloride 103 mmol/L (98-107); Creatinine, Serum 1.02 mg/dL (0.70-1.30); EST Glomerular Filtration Rate 75 mL/min (>60); Est Glom Filt Rate - Afr Amer 90 mL/min (>60); Estimated Creatinine Clearance 57.76 ml/min; Glucose 136 mg/dL (74-106); Sodium Level 141 mmol/L (136-145)
[2019-01-26] MEDS: metroNIDAZOLE 500 MG/100 ML BAG 100 MG IV ×3 (06:03→21:18)
--- NOTE | 2019-01-26 06:13 | PCM.PN.SRG ---
Patient Problems: Active and Suspected Problems Rectal bleeding (Acute) Acute hemorrhagic colitis (Acute) Subjective: Pt states he feels much improved No stool, 4 lessoning amounts of rectal bleeding No current abd pain or nausea - Physical Exam Lungs: Clear to auscultation Abdomen: Soft, Non Tender, Hypoactive Bowel Sounds, Distended Vital Signs Temp Pulse Resp BP Pulse Ox 97.8 F 65 18 140/82 H 95 01/26/19 03:15 01/26/19 03:15 01/26/19 03:15 01/26/19 03:15 01/26/19 03:15 Oxygen Delivery Method Room Air Weight: 239 lb 9.6 oz Body Mass Index (BMI) 35.4 Finger Stick Blood Glucose 196 Intake and Output for Last 24 Hours 01/24/19 01/25/19 01/26/19 23:59 23:59 23:59 Intake Total 712 / 712 2488 / 2488 Output Total 100 / 100 Balance 712 / 712 2388 / 2388 Laboratory Tests Past 24 Hrs 01/25/19 01/25/19 01/25/19 07:58 07:58 07:58 WBC 14.6 H RBC 5.20 Hgb 15.3 Hct 46.0 MCV 88.5 MCH 29.4 MCHC 33.3 RDW 16.6 H RDW Differential 53.9 H Plt Count 245 MPV 9.3 Immature Gran % (Auto) 0.200 Neut % (Auto) 90.2 H Lymph % (Auto) 4.0 L Adams % (Auto) 5.4 Eos % (Auto) 0.1 Baso % (Auto) 0.1 Absolute Neuts (auto) 13.2 H Absolute Lymphs (auto) 0.58 L Total Counted Not Reportable PT INR Sodium 135 L Potassium 3.0 L Chloride 95 L Carbon Dioxide 34.0 H Anion Gap 6 BUN 32 H Creatinine 1.34 H Estim Creat Clear Calc 43.97 Est GFR (MDRD) Af Amer 66 Est GFR (MDRD) Non-Af 54 L BUN/Creatinine Ratio 23.9 H Glucose 182 H Lactic Acid 2.1 H Calcium 9.2 Blood Type Antibody Screen 01/25/19 01/25/19 01/25/19 07:58 07:58 12:17 WBC RBC Hgb Hct MCV MCH MCHC RDW RDW Differential Plt Count MPV Immature Gran % (Auto) Neut % (Auto) Lymph % (Auto) Adams % (Auto) Eos % (Auto) Baso % (Auto) Absolute Neuts (auto) Absolute Lymphs (auto) Total Counted PT 15.9 H INR 1.3 Sodium Potassium Chloride Carbon Dioxide Anion Gap BUN Creatinine Estim Creat Clear Calc Est GFR (MDRD) Af Amer Est GFR (MDRD) Non-Af BUN/Creatinine Ratio Glucose Lactic Acid 2.4 H Calcium Blood Type O POSITIVE Antibody Screen NEGATIVE 01/25/19 01/25/19 01/26/19 15:15 19:35 05:00 WBC 12.4 H RBC 4.74 Hgb 13.7 Hct 41.7 MCV 88.0 MCH 28.9 MCHC 32.9 RDW 17.0 H RDW Differential 54.0 H Plt Count 199 MPV 9.4 Immature Gran % (Auto) 0.200 Neut % (Auto) 82.0 H Lymph % (Auto) 8.1 L Adams % (Auto) 9.0 Eos % (Auto) 0.5 Baso % (Auto) 0.2 Absolute Neuts (auto) 10.2 H Absolute Lymphs (auto) 1.01 Total Counted Not Reportable PT INR Sodium Potassium Chloride Carbon Dioxide Anion Gap BUN Creatinine Estim Creat Clear Calc Est GFR (MDRD) Af Amer Est GFR (MDRD) Non-Af BUN/Creatinine Ratio Glucose Lactic Acid 2.1 H 1.4 Calcium Blood Type Antibody Screen 01/26/19 05:00 WBC RBC Hgb Hct MCV MCH MCHC RDW RDW Differential Plt Count MPV Immature Gran % (Auto) Neut % (Auto) Lymph % (Auto) Adams % (Auto) Eos % (Auto) Baso % (Auto) Absolute Neuts (auto) Absolute Lymphs (auto) Total Counted PT INR Sodium 141 Potassium 3.0 L Chloride 103 Carbon Dioxide 29.0 Anion Gap 9 BUN 21 H Creatinine 1.02 Estim Creat Clear Calc 57.76 Est GFR (MDRD) Af Amer 90 Est GFR (MDRD) Non-Af 75 BUN/Creatinine Ratio 20.6 H Glucose 136 H Lactic Acid Calcium 8.2 L Blood Type Antibody Screen POC Glucose 01/26/19 01/25/19 01/25/19 00:02 16:59 11:10 POC Glucose 123 H 147 H 154 H Medical Necessity - Tobacco Use Smoking Status: Current every day smoker Tobacco Use: Pipe Assessment/Plan All Active Problems Rectal bleeding (Acute) Acute hemorrhagic colitis (Acute) Large abdomen, nontender On cipro/flagyl Leukocytosis improved from approx. 14 to 12 Will start clears. Continue medical care Hgb 13.7 and GI bleed component will not require emergency intervention at this time
[2019-01-26 06:21] LABS: Bedside Glucose 133 mg/dL (70-110)
[2019-01-26] MEDS: Ciprofloxacin 200 MG/100 ML BAG 100 MG IV ×2 (09:07→22:23)
--- NOTE | 2019-01-26 09:35 | PCM.PN.HOSP ---
Patient Problems: Active and Suspected Problems Rectal bleeding (Acute) Acute hemorrhagic colitis (Acute) Subjective: Patient seen and examined. Rectal bleeding is improving. He had scanty rectal bleeding with bowel movement this morning. He denies any lightheadedness, dizziness or palpitations. Review of systems is otherwise negative. labs and vitals reviewed. Vitals/I&O's: Vital Signs Temp Pulse Resp BP Pulse Ox 98 F 77 16 128/66 H 95 01/26/19 08:59 01/26/19 08:59 01/26/19 08:59 01/26/19 08:59 01/26/19 08:59 Oxygen Delivery Method Room Air Weight: 239 lb 9.6 oz Body Mass Index (BMI) 35.4 Finger Stick Blood Glucose 196 Intake and Output for Last 24 Hours 01/24/19 01/25/19 01/26/19 23:59 23:59 23:59 Intake Total 712 / 712 2488 / 2488 Output Total 100 / 100 Balance 712 / 712 2388 / 2388 General: Alert, Oriented x3, Cooperative, No apparent distress HEENT: Atraumatic, PERRLA, EOMI, Normocephalic Oral: Moist Mucosa Neck: Supple, No JVD, Negative Carotid Bruits Lungs: Clear to auscultation, Normal air movement, No rhonchi, No wheeze, No rales Cardiovascular: Regular rate, Regular Rhythm, Normal S1, Normal S2, No murmurs Abdomen: Bowel Sounds Present, Soft, Non Tender, Non-Distended, No Hepato-splenomegaly Extremities: No clubbing, No cyanosis, No edema, Capillary Refill Less than 3 Seconds Skin: No rashes, No breakdown Musculoskeletal: No Tenderness to Palpation of Joints or Extremities Lymphatic: No Cervical, Supraclavicular, or Inguinal Adenopathy Neurological: Cranial nerves II-XII grossly intact, Neuro grossly intact, Motor Exam 5/5 strength throughout Psych/Mental Status: Normal Affect, Appropriate, Alert and oriented to time, place, person, mood and affect Laboratory Results 01/25/19 11:10: POC Glucose 154 H 01/25/19 12:17: Lactic Acid 2.4 H 01/25/19 15:15: Lactic Acid 2.1 H 01/25/19 16:59: POC Glucose 147 H 01/25/19 19:35: Lactic Acid 1.4 01/26/19 00:02: POC Glucose 123 H 01/26/19 05:00: WBC 12.4 H, RBC 4.74, Hgb 13.7, Hct 41.7, MCV 88.0, MCH 28.9, MCHC 32.9, RDW 17.0 H, RDW Differential 54.0 H, Plt Count 199, MPV 9.4, Immature Gran % (Auto) 0.200, Neut % (Auto) 82.0 H, Lymph % (Auto) 8.1 L, Gregory % (Auto) 9.0, Eos % (Auto) 0.5, Baso % (Auto) 0.2, Absolute Neuts (auto) 10.2 H, Absolute Lymphs (auto) 1.01, Total Counted Not Reportable 01/26/19 05:00: Sodium 141, Potassium 3.0 L, Chloride 103, Carbon Dioxide 29.0, Anion Gap 9, BUN 21 H, Creatinine 1.02, Estim Creat Clear Calc 57.76, Est GFR (MDRD) Af Amer 90, Est GFR (MDRD) Non-Af 75, BUN/Creatinine Ratio 20.6 H, Glucose 136 H, Calcium 8.2 L 01/26/19 06:02: POC Glucose 133 H Current Medications Albuterol Sulfate (Ventolin Aerosols) 2.5 mg INHALATION Q4H PRN PRN PRN Reason: SOB &/OR WHEEZING Dextrose (D50w Syringe) 0 gm IV X1 PRN; Protocol PRN Reason: Hypoglycemia Glucagon () 1 mg IM .X1 PRN PRN Reason: Hypoglycemia Ciprofloxacin (Cipro) 200 mg in 100 mls @ 100 mls/hr IV Q12 [facility] Last Admin: 01/26/19 09:07 Dose: 100 mls/hr Metronidazole (Flagyl) 500 mg in 100 mls @ 100 mls/hr IV Q8 [facility] Last Admin: 01/26/19 06:03 Dose: 100 mls/hr Sodium Chloride () 1,000 mls @ 150 mls/hr IV .Q6H40M [facility] Last Admin: 01/26/19 03:15 Dose: 150 mls/hr Potassium Chloride () 10 meq in 100 mls @ 100 mls/hr IV BOLUS Q1H [facility] Stop: 01/26/19 11:59 Insulin Human Lispro (Humalog Kwikpen (Bkc)) 0 unit SQ Q6 DENIZ; Protocol Last Admin: 01/26/19 06:05 Dose: Not Given Ondansetron HCl (Zofran) 4 mg IV Q8H PRN PRN PRN Reason: NAUSEA/VOMITING Sodium Chloride () 5 - 15 ml IV UD PRN PRN Reason: SALINE FLUSH Medical Necessity - Tobacco Use Smoking Status: Current every day smoker Tobacco Use: Pipe Assessment/Plan All Active Problems Rectal bleeding (Acute) Acute hemorrhagic colitis (Acute) 78 y/o male admitted with a complaint of abdominal pain and rectal bleeding 1. Lower GI bleed likely due to acute ischemic colitis improving. Rectal bleeding has decreased significantly CT abdomen showed colitis of the transverse, descending and sigmoid colon on IVF NS @ 125cc/hr wbc down to 12 today on IV ciprofloxacin and IV metronidazole coumadin still on hold will cotninue holding BP meds to keep BP >140/90 to keep colon adequately perfused 2. Hypokalemia: K is 3. Will replace and monitor 3. Lactic acidosis: resolved with IVF administration. Lactic acid came down to 1.4 4. Afib: metoprolol on hold. Currently rate and rhythm controlled. coumadin on hold. 5. Hypertension: BP meds on hold as above. 6. Diabetes mellitus: home Metformin on hold. Insulin sliding scale. Accu-Cheks AC at bedtime. DVT prophylaxis: SCDs. Coumadin on hold. Code Visit Inpatient E&M: 92378 Subs Hosp L2
--- NOTE | 2019-01-26 09:39 | PN_ITS ---
Patient Problems: Active and Suspected Problems Rectal bleeding (Acute) Acute hemorrhagic colitis (Acute) Subjective: Patient seen and examined. Rectal bleeding is improving. He had scanty rectal bleeding with bowel movement this morning. He denies any lightheadedness, dizziness or palpitations. Review of systems is otherwise negative. labs and vitals reviewed. Vitals/I&O's: Vital Signs Temp Pulse Resp BP Pulse Ox 98 F 77 16 128/66 H 95 01/26/19 08:59 01/26/19 08:59 01/26/19 08:59 01/26/19 08:59 01/26/19 08:59 Oxygen Delivery Method Room Air Weight: 239 lb 9.6 oz Body Mass Index (BMI) 35.4 Finger Stick Blood Glucose 196 Intake and Output for Last 24 Hours 01/24/19 01/25/19 01/26/19 23:59 23:59 23:59 Intake Total 712 / 712 2488 / 2488 Output Total 100 / 100 Balance 712 / 712 2388 / 2388 General: Alert, Oriented x3, Cooperative, No apparent distress HEENT: Atraumatic, PERRLA, EOMI, Normocephalic Oral: Moist Mucosa Neck: Supple, No JVD, Negative Carotid Bruits Lungs: Clear to auscultation, Normal air movement, No rhonchi, No wheeze, No rales Cardiovascular: Regular rate, Regular Rhythm, Normal S1, Normal S2, No murmurs Abdomen: Bowel Sounds Present, Soft, Non Tender, Non-Distended, No Hepato- splenomegaly Extremities: No clubbing, No cyanosis, No edema, Capillary Refill Less than 3 Seconds Skin: No rashes, No breakdown Musculoskeletal: No Tenderness to Palpation of Joints or Extremities Lymphatic: No Cervical, Supraclavicular, or Inguinal Adenopathy Neurological: Cranial nerves II-XII grossly intact, Neuro grossly intact, Motor Exam 5/5 strength throughout Psych/Mental Status: Normal Affect, Appropriate, Alert and oriented to time, place, person, mood and affect Laboratory Results 01/25/19 11:10: POC Glucose 154 H 01/25/19 12:17: Lactic Acid 2.4 H 01/25/19 15:15: Lactic Acid 2.1 H 01/25/19 16:59: POC Glucose 147 H 01/25/19 19:35: Lactic Acid 1.4 01/26/19 00:02: POC Glucose 123 H 01/26/19 05:00: WBC 12.4 H, RBC 4.74, Hgb 13.7, Hct 41.7, MCV 88.0, MCH 28.9, MCHC 32.9, RDW 17.0 H, RDW Differential 54.0 H, Plt Count 199, MPV 9.4, Immature Gran % (Auto) 0.200, Neut % (Auto) 82.0 H, Lymph % (Auto) 8.1 L, [place] % (Auto) 9.0, Eos % (Auto) 0.5, Baso % (Auto) 0.2, Absolute Neuts (auto) 10.2 H, Absolute Lymphs (auto) 1.01, Total Counted Not Reportable 01/26/19 05:00: Sodium 141, Potassium 3.0 L, Chloride 103, Carbon Dioxide 29.0, Anion Gap 9, BUN 21 H, Creatinine 1.02, Estim Creat Clear Calc 57.76, Est GFR (MDRD) Af Amer 90, Est GFR (MDRD) Non-Af 75, BUN/Creatinine Ratio 20.6 H, Glucose 136 H, Calcium 8.2 L 01/26/19 06:02: POC Glucose 133 H Current Medications Albuterol Sulfate (Ventolin Aerosols) 2.5 mg INHALATION Q4H PRN PRN PRN Reason: SOB &/OR WHEEZING Dextrose (D50w Syringe) 0 gm IV X1 PRN; Protocol PRN Reason: Hypoglycemia Glucagon () 1 mg IM .X1 PRN PRN Reason: Hypoglycemia Ciprofloxacin (Cipro) 200 mg in 100 mls @ 100 mls/hr IV Q12 [facility] Last Admin: 01/26/19 09:07 Dose: 100 mls/hr Metronidazole (Flagyl) 500 mg in 100 mls @ 100 mls/hr IV Q8 [facility] Last Admin: 01/26/19 06:03 Dose: 100 mls/hr Sodium Chloride () 1,000 mls @ 150 mls/hr IV .Q6H40M [facility] Last Admin: 01/26/19 03:15 Dose: 150 mls/hr Potassium Chloride () 10 meq in 100 mls @ 100 mls/hr IV BOLUS Q1H [facility] Stop: 01/26/19 11:59 Insulin Human Lispro (Humalog Kwikpen (Bkc)) 0 unit SQ Q6 DENIZ; Protocol Last Admin: 01/26/19 06:05 Dose: Not Given Ondansetron HCl (Zofran) 4 mg IV Q8H PRN PRN PRN Reason: NAUSEA/VOMITING Sodium Chloride () 5 - 15 ml IV UD PRN PRN Reason: SALINE FLUSH Medical Necessity - Tobacco Use Smoking Status: Current every day smoker Tobacco Use: Pipe Assessment/Plan All Active Problems Rectal bleeding (Acute) Acute hemorrhagic colitis (Acute) 78 y/o male admitted with a complaint of abdominal pain and rectal bleeding 1. Lower GI bleed likely due to acute ischemic colitis * improving. Rectal bleeding has decreased significantly * CT abdomen showed colitis of the transverse, descending and sigmoid colon * on IVF NS @ 125cc/hr * wbc down to 12 today * on IV ciprofloxacin and IV metronidazole * coumadin still on hold * will cotninue holding BP meds to keep BP >140/90 to keep colon adequately perfused * * 2. Hypokalemia: K is 3. Will replace and monitor 3. Lactic acidosis: resolved with IVF administration. Lactic acid came down to 1.4 4. Afib: * metoprolol on hold. Currently rate and rhythm controlled. * coumadin on hold. 5. Hypertension: BP meds on hold as above. 6. Diabetes mellitus: home Metformin on hold. Insulin sliding scale. Accu- Cheks AC at bedtime. DVT prophylaxis: SCDs. Coumadin on hold. Code Visit Inpatient E&M: 10332 Subs Hosp L2
[2019-01-26] MEDS: Potassium Chloride 10mEq/100mL 10 MEQ/100 ML IV.SOLN. 100 MEQ IV BOLUS ×4 (10:00→13:12)
--- NOTE | 2019-01-26 11:06 | CASEMGMT ---
Patient has a Healthcare LW and a General Power of Medical Detailist on file at [facility]. SW printed documents and placed them in his chart. Seble HANSON
[2019-01-26] MEDS: Allopurinol 300 MG Tablet PO (11:11)
[2019-01-26] MEDS: Gabapentin 100 MG Capsule PO ×2 (11:11→22:23)
[2019-01-26] MEDS: Vitamin B Comp W-C Capsule 1 CAP PO (11:11)
[2019-01-26] MEDS: Magnesium Oxide 400 MG Tablet PO (11:11)
[2019-01-26] MEDS: Tolterodine Tartrate 2 MG CAP.SA PO ×2 (11:11→22:23)
--- NOTE | 2019-01-26 11:16 | CASEMGMT ---
ANTONIETA SCHWARTZ assessment: Face to Face with patient for initial transition planning/care coordination assessment. ANTONIETA SCHWARTZ introduced self and role at [facility], pt voices understanding and consents to assessment at this time. Pt is sitting up in chair in no distress at this time. Pt is A/Ox4 at this time and answers all questions appropriately at this time. Pt's is at bedside during assessment. Care providers, pharmacy, and demographics verified at this time. 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 Cha states that he 'will monitor for now.' Preferred Pharmacy: [facility] Insurance: MCR A/B, [employer] Prescription Benefit: Silver Rx Living Will/HPOA: Pt has LW and general POA on file at [facility] at this time. Pt states does not have HPOA and explanation done at this time. Pt aware that SW can complete, if needed, voices understanding and voices no further questions at this time. LNOK: Milagro Floyd, Living Arrangements: Pt states lives with in 1 story home with 3 steps in and states no concerns at home at this time. Pt states is independent with ADL's. Transportation: Pt states drives self and states no transportation concerns at this time. DME/HHC: Pt states has the following DME: cane, w/c, walker, and grab bars. Pt states no need for any further DME at this time. Pt states no hx of HHC or SNF in the past. Pt/ state no concerns with going home at time of discharge. Pt is retired. Pt states smokes a pipe and states drinks 'very little' ETOH. Pt states no further questions/concerns/needs at this time. CM to follow for any further discharge planning/needs. Advised pt/ to ask for CM if any further questions/concerns/needs arise, voice understanding. Pt Goal: Home Plan[place] ANTONIETA SCHWARTZ
[2019-01-26 11:56] LABS: Bedside Glucose 134 mg/dL (70-110)
[2019-01-26 16:41] LABS: Bedside Glucose 113 mg/dL (70-110)
[2019-01-26] MEDS: 0.9% NaCl Peripheral Flush Adult/Peds IV (21:18)
[2019-01-27 00:10] LABS: Bedside Glucose 123 mg/dL (70-110)
[2019-01-27] MEDS: 0.9% Normal Saline 1,000 ML 150 ML IV ×2 (00:56→10:07)
[2019-01-27 03:00] VITALS: PULSE 83
[2019-01-27 03:10] VITALS: BP 124/86; PULSE 87; RESP 16; TEMP 36.6; O2SAT 97
--- NOTE | 2019-01-27 05:32 | PCM.PN.SRG ---
Patient Problems: Active and Suspected Problems Rectal bleeding (Acute) Acute hemorrhagic colitis (Acute) Subjective: Pt states he thinks rectal bleeding certainly has slowed - Physical Exam Abdomen: Bowel Sounds Present - mild tenderness to deep palpation LLQ, Soft Vital Signs Temp Pulse Resp BP Pulse Ox 98 F 87 16 124/86 H 97 01/27/19 03:10 01/27/19 03:10 01/27/19 03:10 01/27/19 03:10 01/27/19 03:10 Oxygen Delivery Method Room Air Weight: 239 lb 9.6 oz Body Mass Index (BMI) 35.4 Finger Stick Blood Glucose 196 Intake and Output for Last 24 Hours 01/25/19 01/26/19 01/27/19 23:59 23:59 23:59 Intake Total 712 / 712 5459 / 5459 Output Total 100 / 100 Balance 712 / 712 5359 / 5359 Laboratory Tests Past 24 Hrs 01/26/19 01/26/19 01/27/19 05:00 05:00 05:14 WBC 12.4 H Pending RBC 4.74 Pending Hgb 13.7 Pending Hct 41.7 Pending MCV 88.0 Pending MCH 28.9 Pending MCHC 32.9 Pending RDW 17.0 H Pending RDW Differential 54.0 H Pending Plt Count 199 Pending MPV 9.4 Immature Gran % (Auto) 0.200 Neut % (Auto) 82.0 H Pending Lymph % (Auto) 8.1 L [place] % (Auto) 9.0 Eos % (Auto) 0.5 Baso % (Auto) 0.2 Absolute Neuts (auto) 10.2 H Pending Absolute Lymphs (auto) 1.01 Total Counted Not Reportable Pending Sodium 141 Potassium 3.0 L Chloride 103 Carbon Dioxide 29.0 Anion Gap 9 BUN 21 H Creatinine 1.02 Estim Creat Clear Calc 57.76 Est GFR (MDRD) Af Amer 90 Est GFR (MDRD) Non-Af 75 BUN/Creatinine Ratio 20.6 H Glucose 136 H Calcium 8.2 L 01/27/19 05:14 WBC RBC Hgb Hct MCV MCH MCHC RDW RDW Differential Plt Count MPV Immature Gran % (Auto) Neut % (Auto) Lymph % (Auto) Cache % (Auto) Eos % (Auto) Baso % (Auto) Absolute Neuts (auto) Absolute Lymphs (auto) Total Counted Sodium Pending Potassium Pending Chloride Pending Carbon Dioxide Pending Anion Gap Pending BUN Pending Creatinine Pending Estim Creat Clear Calc Est GFR (MDRD) Af Amer Pending Est GFR (MDRD) Non-Af Pending BUN/Creatinine Ratio Pending Glucose Pending Calcium Pending POC Glucose 01/26/19 01/26/19 01/26/19 23:56 16:35 11:51 POC Glucose 123 H 113 H 134 H 01/26/19 06:02 POC Glucose 133 H Medical Necessity - Tobacco Use Smoking Status: Current every day smoker Tobacco Use: Pipe Assessment/Plan All Active Problems Rectal bleeding (Acute) Acute hemorrhagic colitis (Acute) Advance diet, await labs Possible DC later today pending progress Plan for outpt surgical follow up and future colonoscopy
[2019-01-27 05:41] LABS: Absolute Lymphocyte Count 0.88 X10^3/ul (0.83-4.51); Absolute Neutrophil Count 9.2 X10^3/uL (2.0-7.7); Basophil# 0.03 X10^3/uL; Basophil% 0.3 % (0-1); Eosinophils% 0.9 % (0-5); Hematocrit 41.8 % (40-54); Hemoglobin 13.8 g/dl (13.0-16.5); Lymphocyte # 0.88 X10^3/ul (4.0); Lymphocyte % 7.8 % (19-41); Mean Corpuscular Hgb 29.6 pg (27.0-32.0); Mean Corpuscular Volume 89.5 fL (80-94); Mean Platelet Vol. 9.4 fl (6.2-12.0); Monocyte# 0.99 X10^3/uL; Monocyte% 8.8 % (0-10); Neutrophil % 81.9 % (47-70); Platelet Count 160 K/mm3 (150-450); RBC Distribution Width CV 16.9 % (11.6-14.6); RBC Distribution Width SD 54.7 fl (35.1-43.9); Red Blood Count 4.67 M/mm3 (4.6-6.2); White Blood Count 11.2 K/mm3 (4.4-11.0)
[2019-01-27 05:42] LABS: POSITIVE COUNT NO; POSITIVE DIFFERENTIAL NO; POSITIVE MORPHOLOGY NO
[2019-01-27 05:58] LABS: Anion Gap 9 (5-15); BUN 15 mg/dL (7-18); Calcium,Total 7.9 mg/dL (8.5-10.1); Chloride 106 mmol/L (98-107); Creatinine, Serum 0.94 mg/dL (0.70-1.30); EST Glomerular Filtration Rate 82 mL/min (>60); Est Glom Filt Rate - Afr Amer 100 mL/min (>60); Estimated Creatinine Clearance 62.68 ml/min; Glucose 129 mg/dL (74-106); Potassium 3.3 mmol/L (3.5-5.1); Sodium Level 141 mmol/L (136-145)
[2019-01-27] MEDS: metroNIDAZOLE 500 MG/100 ML BAG 100 MG IV ×2 (06:03→13:55)
[2019-01-27] MEDS: Gabapentin 100 MG Capsule PO ×2 (06:05→13:56)
[2019-01-27 07:05] LABS: Bedside Glucose 119 mg/dL (70-110)
[2019-01-27 07:06] VITALS: PULSE 103
[2019-01-27] MEDS: Allopurinol 300 MG Tablet PO (08:50)
[2019-01-27] MEDS: Ciprofloxacin 200 MG/100 ML BAG 100 MG IV (08:50)
[2019-01-27] MEDS: Vitamin B Comp W-C Capsule 1 CAP PO (08:50)
[2019-01-27] MEDS: Tolterodine Tartrate 2 MG CAP.SA PO (08:50)
[2019-01-27] MEDS: Magnesium Oxide 400 MG Tablet PO (08:50)
[2019-01-27 09:10] VITALS: BP 134/92; PULSE 74; RESP 16; TEMP 36.7; O2SAT 96
[2019-01-27 11:30] LABS: Bedside Glucose 148 mg/dL (70-110)
[2019-01-27] MEDS: 0.9% NaCl Peripheral Flush Adult/Peds IV (13:55)
--- NOTE | 2019-01-27 14:10 | DCINST_ITS ---
- Discharge Diagnoses Current Active Problems: Current Active and Chronic Problems Rectal bleeding (Acute) Acute hemorrhagic colitis (Acute) You will use the following diet at home:: Cardiac Your food should be the consistency of: Regular Your liquids should be the consistency of: Regular/Thin Discharge Activity: Return to Normal Activity Weight Bearing Status: Weight bearing as tolerated Call your doctor if you observe: Fever of 101 or Higher, - - abdominal pain. rectal bleeding Instructions: Ischemic Colitis Additional Instructions: follow up with PCP in 4-5 days for INR to be checked. Allergies/Adverse Reactions: Allergies No Known Allergies Allergy (Verified 01/25/19 07:27) Medications to take at Discharge Allopurinol 300 mg PO DAILY 07/23/15 metFORMIN HCl [Glucophage] 500 mg PO BIDCM 07/23/15 Amlodipine [Norvasc] 5 mg PO DAILY 03/21/18 Oxybutynin Chloride [Ditropan Xl] 10 mg PO BID 03/21/18 Warfarin [Coumadin] 2.5 mg PO QODAY 03/21/18 hydroCHLOROthiazide [Hydrochlorothiazide] 12.5 mg PO DAILY 03/21/18 Magnesium 250 mg PO DAILY 07/22/18 Vitamin B Complex 1 each PO DAILY 07/22/18 Acetaminophen [Tylenol] 1,000 mg PO Q8H PRN PRN 08/06/18 Albuterol Inhaler [Ventolin Hfa] 2 puff INHALATION Q4H PRN PRN #1 inhaler 08/08/18 Furosemide [Lasix] 20 mg PO MOWEFR #12 tablet 08/08/18 Metoprolol(XL)Succ [Toprol Xl (Beta Zeina)] 50 mg PO DAILY #30 tablet 08/08/18 Polyethylene Glycol 3350 [Miralax] 17 gm PO DAILY #30 packet 08/08/18 Senna/Docusate Sodium [Senokot-S] 2 tab PO BID PRN PRN #60 tab 08/08/18 Gabapentin [Neurontin] 100 mg PO TID 01/25/19 Ciprofloxacin HCl 500 mg PO Q12H 10 Days #20 tablet 01/27/19 Metronidazole 500 mg PO Q8 10 Days #30 tablet 01/27/19 Potassium Chloride [K-Dur] 20 meq PO DAILYCM 30 Days #30 tablet 01/27/19 The following prescriptions were given: Ciprofloxacin HCl 500 mg PO Q12H 10 Days #20 tablet Metronidazole 500 mg PO Q8 10 Days #30 tablet Potassium Chloride [K-Dur] 20 meq PO DAILYCM 30 Days #30 tablet Primary Care Physician: Man Cha MD [Primary Care Provider] - Please follow up with your Primary Care Physician in: 3-4 days Test Results: Test results from this visit will be discussed in further detail at your follow- up appointment, if applicable. Please Follow Up With: Thomas Lange MD When: February 06 @ 10am Proposed Discharge Date: 01/27/19
--- NOTE | 2019-01-27 14:13 | PCM.DC.SUM ---
Discharge Date and Diagnosis - Problem List Patient Problems: Active and Suspected Problems Rectal bleeding (Acute) Acute hemorrhagic colitis (Acute) Date of Admission: 01/25/19 Date of Discharge: 01/27/19 - Primary Discharge Diagnosis Active and Suspected Problems Rectal bleeding (acute) ischemic colitis (acute) - Secondary Discharge Diagnosis Chronic Problems Atrial fibrillation (Chronic) Right rotator cuff tear arthropathy (Chronic) Diabetes mellitus (Chronic) Hypertension (Chronic) Gout (Chronic) Osteoarthritis (Chronic) Chronic diastolic heart failure (Chronic) Kidney stones (Chronic) Hospital Course and Treatment Imaging Results: Diagnostic Data Abdomen/Pelvis CT 01/25/19 08:25 IMPRESSION: Colitis of the distal portion of the transverse colon as well as the descending colon and sigmoid colon. Multiple hepatic cysts. Bilateral renal cysts. Multiple gallstones. Electronically Signed: Dong Nerissa, at 9:13 EDT , Service support , Operations: None Procedures: None Summary of Care Provided: The patient is a 78 year old M with a past medical history as listed which includes hypertension, diabetes mellitus and chronic A. fib on Coumadin therapy. He was admitted through the ED on 01/25/2019 with a complaint of lower abdominal pain and rectal bleeding of one day duration. Patient states on the night before presentation he noticed that he was having severe cramping lower abdominal pain which he rated at about 7/10. He subsequently had rectal bleeding with bowel movements. He states his bowel movement was initially hard but subsequently became watery. Patient is on Coumadin and his last INR checked was around 1.2 a week ago and was 1.3 on admission. He has not had rectal bleeding before he denies any history of diverticular disease. He has been compliant with his medications and had a colonoscopy about 3 or [address] Mckeon. He admitted to feeling lightheaded or dizzy and having palpitations at time of symptoms but these had resolved at time of review. In the ED, vitals were significant for hemoglobin of 15, white cell count of 14.6 and platelets of 245. Potassium was 3 and creatinine was 1.34. INR was 1.3 and lactic acid was 2.1. CT of the abdomen and pelvis done with IV contrast showed colitis of the transverse as well as descending and sigmoid colon. He was started on IV fluids and was admitted to be managed for rectal bleeding likely due to acute ischemic colitis. He was kept n.p.o., started on IV fluids and blood pressure medications were initially held to allow for blood pressure more than 140/90 to allow for adequate perfusion of the colon. He was started on IV ciprofloxacin and Flagyl. General surgery was consulted. Coumadin was also held. General surgery plan for conservative management initially patient was kept n.p.o. Rectal bleeding gradually decreased and abdominal pain improved significantly. He was started on clear liquid diet which he tolerated and was advanced to soft diet which he also tolerated. His stay was comp located by hypo-kalemia which improved with replacement of IV potassium. Patient remained stable and was discharged home on 01/27/2019. Coumadin was resumed after discussion with general surgery. He was given a prescription for p.o. ciprofloxacin and p.o. metronidazole for time. Blood pressure medications were. He was also discharged with a prescription for p.o. potassium. He is to follow-up with his primary care doctor within 4 to 5 days for INR to be checked and also for potassium to be checked. He is also to follow-up with Dr. Mckeon on February 06 at 10 AM. Patient seen and examined prior to discharge. He had no complaints and felt well. He only had a tiny bowel movement in the early hours of this morning which was slightly bloody. Review of systems otherwise negative. Labs and vitals reviewed. Home medications reviewed and reconciled. o/e: Vital Signs Height 5 ft 9 in Weight: 239 lb 9.6 oz Weight in Pounds 239.6 lbs Pulse Ox 97 Temperature 98 F Pulse Rate 71 Respiratory Rate 16 Blood Pressure 142/80 Blood Pressure Position Sitting [] General: Alert, Oriented x3, Cooperative, No apparent distress HEENT: Atraumatic, PERRLA, EOMI, Normocephalic Oral: Moist Mucosa Neck: Supple, No JVD, Negative Carotid Bruits Lungs: Clear to auscultation, Normal air movement, No rhonchi, No wheeze, No rales Cardiovascular: Regular rate, Regular Rhythm, Normal S1, Normal S2, No murmurs Abdomen: Bowel Sounds Present, Soft, Non Tender, Non-Distended, No Hepato-splenomegaly Extremities: No clubbing, No cyanosis, No edema, Capillary Refill Less than 3 Seconds Skin: No rashes, No breakdown Musculoskeletal: No Tenderness to Palpation of Joints or Extremities Lymphatic: No Cervical, Supraclavicular, or Inguinal Adenopathy Neurological: Cranial nerves II-XII grossly intact, Neuro grossly intact, Motor Exam 5/5 strength throughout Psych/Mental Status: Normal Affect, Appropriate, Alert and oriented to time, place, person, mood and affect Plan as above. Patient Problems: Active and Suspected Problems Rectal bleeding (Acute) Acute hemorrhagic colitis (Acute) - Physical Exam Vital Signs Temp Pulse Resp BP Pulse Ox 98.1 F 74 16 134/92 H 96 01/27/19 09:10 01/27/19 09:10 01/27/19 09:10 01/27/19 09:10 01/27/19 09:10 Oxygen Delivery Method Room Air Weight: 239 lb 9.6 oz Body Mass Index (BMI) 35.4 Finger Stick Blood Glucose 196 Intake and Output for Last 24 Hours 01/25/19 01/26/19 01/27/19 23:59 23:59 23:59 Intake Total 712 / 712 5459 / 5459 1496 / 1496 Output Total 100 / 100 Balance 712 / 712 5359 / 5359 1496 / 1496 Laboratory Tests Past 24 Hrs 01/27/19 01/27/19 01/27/19 05:14 05:14 13:50 WBC 11.2 H RBC 4.67 Hgb 13.8 Hct 41.8 MCV 89.5 MCH 29.6 MCHC 33.0 RDW 16.9 H RDW Differential 54.7 H Plt Count 160 MPV 9.4 Immature Gran % (Auto) 0.300 Neut % (Auto) 81.9 H Lymph % (Auto) 7.8 L Wetzel % (Auto) 8.8 Eos % (Auto) 0.9 Baso % (Auto) 0.3 Absolute Neuts (auto) 9.2 H Absolute Lymphs (auto) 0.88 Total Counted Not Reportable Sodium 141 Potassium 3.3 L Pending Chloride 106 Carbon Dioxide 26.0 Anion Gap 9 BUN 15 Creatinine 0.94 Estim Creat Clear Calc 62.68 Est GFR (MDRD) Af Amer 100 Est GFR (MDRD) Non-Af 82 BUN/Creatinine Ratio 16.0 Glucose 129 H Calcium 7.9 L POC Glucose 01/27/19 01/27/19 01/26/19 11:25 06:09 23:56 POC Glucose 148 H 119 H 123 H 01/26/19 16:35 POC Glucose 113 H Discharge Diet: Low fat/ Low Cholesterol Discharge Activity: Return to Normal Activity Weight Bearing Status: Weight bearing as tolerated Call your doctor if you observe: Fever of 101 or Higher, - - abdominal pain. rectal bleeding Home Medications: Medications to take at Discharge Allopurinol 300 mg PO DAILY 07/23/15 metFORMIN HCl [Glucophage] 500 mg PO BIDCM 07/23/15 Amlodipine [Norvasc] 5 mg PO DAILY 03/21/18 Oxybutynin Chloride [Ditropan Xl] 10 mg PO BID 03/21/18 Warfarin [Coumadin] 2.5 mg PO QODAY 03/21/18 hydroCHLOROthiazide [Hydrochlorothiazide] 12.5 mg PO DAILY 03/21/18 Magnesium 250 mg PO DAILY 07/22/18 Vitamin B Complex 1 each PO DAILY 07/22/18 Acetaminophen [Tylenol] 1,000 mg PO Q8H PRN PRN 08/06/18 Albuterol Inhaler [Ventolin Hfa] 2 puff INHALATION Q4H PRN PRN #1 inhaler 08/08/18 Furosemide [Lasix] 20 mg PO MOWEFR #12 tablet 08/08/18 Metoprolol(XL)Succ [Toprol Xl (Beta Zeina)] 50 mg PO DAILY #30 tablet 08/08/18 Polyethylene Glycol 3350 [Miralax] 17 gm PO DAILY #30 packet 08/08/18 Senna/Docusate Sodium [Senokot-S] 2 tab PO BID PRN PRN #60 tab 08/08/18 Gabapentin [Neurontin] 100 mg PO TID 01/25/19 Ciprofloxacin HCl 500 mg PO Q12H 10 Days #20 tablet 01/27/19 Metronidazole 500 mg PO Q8 10 Days #30 tablet 01/27/19 Potassium Chloride [K-Dur] 20 meq PO DAILYCM 30 Days #30 tablet 01/27/19 Following Prescrptions Were Given to Patient: Ciprofloxacin HCl 500 mg PO Q12H 10 Days #20 tablet Metronidazole 500 mg PO Q8 10 Days #30 tablet Potassium Chloride [K-Dur] 20 meq PO DAILYCM 30 Days #30 tablet Primary Care Physician: Man Cha MD [Primary Care Provider] - Please follow up with your Primary Care Physician in: 3-4 days Please Follow Up With: Thomas Lange MD When: February 06 @ 10am Patient Instructions: Ischemic Colitis Disposition: Home Minutes spent on discharge:: 40 Patient Condition:: Stable Medical Necessity - Tobacco Use Smoking Status: Current every day smoker Tobacco Use: Pipe Meaningful Use Info Meaningful Use Diagnoses (Choose all that apply): None applicable Code Visit Inpatient E&M: 26273 Disch Hosp
[2019-01-27 14:25] LABS: Potassium 3.5 mmol/L (3.5-5.1)
[2019-01-27 14:29] VITALS: BP 142/80; PULSE 71; RESP 16; TEMP 36.6; O2SAT 97
--- NOTE | 2019-01-31 15:40 | CASEMGMT ---
ANTONIETA SCHWARTZ Discharge Follow-Up Phone Call. Lace: 11 Strata: 3 Discharge Date: 01/27/19 Adm Dx: Lower GIB, A-fib, hypokalemia. Attempted discharge follow-up phone call. No answer. Message left for pt to return call to PRINCIPAL PROCESS ENGINEERHalina FUNG CM, if he has any questions/concerns re: discharge instructions, medications, or follow-up appts. Phone number provided. Konstantin GUERRIER RN, CM
== END 2019-01-27 16:01 | disposition home or self-care (01) | DRG 394 ==
LOC: ED 08:03 → PCU 09:37
PROVIDERS: Surgery; Admitting Provider Student in an Organized Health Care Education/Training Program; Emergency Provider Emergency Medicine; Family Provider Family Medicine; PCP Family Medicine; Visit Provider Student in an Organized Health Care Education/Training Program
DX: K55.039 Acute (reversible) ischemia of large intestine, extent unspecified (principal); I50.32 Chronic diastolic (congestive) heart failure; E87.2 Acidosis; K92.1 Melena; I11.0 Hypertensive heart disease with heart failure; I48.2 Chronic atrial fibrillation; E11.9 Type 2 diabetes mellitus without complications; M1A.9XX0 Chronic gout, unspecified, without tophus (tophi); M19.90 Unspecified osteoarthritis, unspecified site; E87.6 Hypokalemia; F17.200 Nicotine dependence, unspecified, uncomplicated; Z86.010 Personal history of colon polyps; Z87.442 Personal history of urinary calculi; Z91.19 Patient's noncompliance with other medical treatment and regimen; Z79.01 Long term (current) use of anticoagulants; Z79.84 Long term (current) use of oral hypoglycemic drugs; Z79.899 Other long term (current) drug therapy
CPT/HCPCS: 36415; 74177; 80048; 82962; 83605; 84132; 85025; 85610; 86850; 86900; 93005; 97162; 97530; 99285; J7030; Q9967; A4216; J0744

== ENCOUNTER 2019-03-07 07:55 | Day surgery (SDC) | payer MEDICARE, OTHER, SELFPAY ==
[2019-02-06 10:32] VITALS: BMI 35.4
--- NOTE | 2019-02-07 11:14 | HP_ITS ---
Intake Vital Signs 02/06/19 Body Mass Index (BMI) 35.4 02/06/19 Height 5 ft 9 in 02/06/19 Weight: 239 lb 02/06/19 Body Mass Index (BMI) 35.2 02/06/19 Blood Pressure 121/76 H 02/06/19 Blood Pressure Location Rt brachial 02/06/19 Blood Pressure Position Sitting 02/06/19 Respiratory Rate 16 02/06/19 Pulse Rate 63 02/06/19 Pulse Source Monitor 02/06/19 Temperature 97.9 F 02/06/19 Temperature Source Oral 02/06/19 Pulse Ox 95 02/06/19 Oxygen Delivery Method room air Intake Visit Reasons: colitis, set up c-scope RC Chief Complaint: ABD PAIN Custom Decorating Consultant Required: No Is patient in pain?: No Allergies No Known Allergies Allergy (Verified 02/06/19 10:35) Medications Allopurinol 300 mg PO DAILY 07/23/15 [History Confirmed 02/06/19] metFORMIN HCl [Glucophage] 500 mg PO BIDCM 07/23/15 [History Confirmed 02/06/19] Amlodipine [Norvasc] 5 mg PO DAILY 03/21/18 [History Confirmed 02/06/19] Oxybutynin Chloride [Ditropan Xl] 10 mg PO BID 03/21/18 [History Confirmed 02/06/19] Warfarin [Coumadin] 2.5 mg PO QODAY 03/21/18 [History Confirmed 02/06/19] hydroCHLOROthiazide [Hydrochlorothiazide] 12.5 mg PO DAILY 03/21/18 [History Confirmed 02/06/19] Magnesium 250 mg PO DAILY 07/22/18 [History Confirmed 02/06/19] Vitamin B Complex 1 ea PO DAILY 07/22/18 [History Confirmed 02/06/19] Acetaminophen [Tylenol] 1,000 mg PO Q8H PRN PRN 08/06/18 [History Confirmed 02/06/19] Albuterol Inhaler [Ventolin Hfa] 2 puff INHALATION Q4H PRN PRN #1 inhaler 08/08/18 [Rx Confirmed 02/06/19] Furosemide [Lasix] 20 mg PO MOWEFR #12 tab 08/08/18 [Rx Confirmed 02/06/19] Metoprolol(XL)Succ [Toprol Xl (Beta Zeina)] 50 mg PO DAILY #30 tab 08/08/18 [Rx Confirmed 02/06/19] Polyethylene Glycol 3350 [Miralax] 17 gm PO DAILY #30 packet 08/08/18 [Rx Confirmed 02/06/19] Senna/Docusate Sodium [Senokot-S] 2 tab PO BID PRN PRN #60 tab 08/08/18 [Rx Confirmed 02/06/19] Gabapentin [Neurontin] 100 mg PO TID 01/25/19 [History Confirmed 02/06/19] Potassium Chloride [K-Dur] 20 meq PO DAILYCM 30 Days #30 tab 01/27/19 [Rx Confirmed 02/06/19] PFSH Medical History Black tarry stools (Acute) COPD (chronic obstructive pulmonary disease) (Chronic) Atrial fibrillation (Chronic) Right rotator cuff tear arthropathy (Chronic) Diabetes mellitus (Chronic) Hypertension (Chronic) Gout (Chronic) Osteoarthritis (Chronic) Chronic diastolic heart failure (Chronic) Kidney stones (Chronic) Rectal bleeding (Acute) Acute hemorrhagic colitis (Acute) Surgical History Hx of umbilical hernia repair (Acute) Hx of shoulder surgery (Acute) History of back surgery (Acute) History of bilateral knee arthroplasty (Acute) Family History Brother Diabetes Sister Cancer Bladder cancer Social History (Updated 02/07/19 @ 11:16 by Alejandrina Gonzalez PA-C) Smoking Status: Current every day smoker second hand exposure: No alcohol intake: current alcohol intake frequency: a few times a month substance use type: does not use caffeine: Yes what type of physical activity do you participate in: none frequency: does not exercise HPI HPI HPI: PANDA MARCELO, is a 78 M who presents to the office today for HPI HPI Surgical H&P: Yes HPI: PANDA MARCELO, is a 78 M who presents to the office today after follow-up from hospitalization of colitis. Patient notes he is almost completed with the antibiotics. Patient notes the bright red blood has resolved. He note having black tarry stools now. Patient is on Coumadin currently for A fib. Patient denies previous myocardial infarction, stroke and blood clots. His last colonoscopy was in [address] Lange. Findings included decreased sphincter tone, hemorrhoids and unremarkable colon. Patient's bowel prep was poor. Recommendation for follow-up scope was made for 5 years. ROS General General: Yes fatigue; no weight change, appetite, colon cancer, breast cancer or weakness HEENT HEENT: No difficulty swallowing, eye injury, eye surgery, swollen glands or hoarseness Endo Endocrine: Yes diabetes mellitus; no thyroid disease, thyroid cancer, Hair loss, heat intolerance or cold intolerance Skin Skin: No rash or changing moles Musc Musculoskeletal: Yes back problems and arthritis; no rheumatoid arthritis, gout or joint pain Cardio Cardiovascular: Yes atrial fibrillation; no murmur, pacemaker, heart disease, high blood pressure, heart attack, heart stent, palpitations, shortness of breat with exertion or chest pain Psych Psychiatric: No depression, anxiety or hearing voices Resp Respiratory: No shortness of breath, No sleep apnea, No cough, Yes COPD, No asthma, No emphysema, No wheezing Gastro Gastrointestinal: No abdominal pain, No nausea or vomiting, No diarrhea, No constipation, No blood in stool, No acid reflux, No hemorrhoids, No ulcers, No gallbladder problem, Yes black,tarry stools Rowdy Hematologic: Yes blood thinners, No blood disorders, No bleeding, No anemia, No blood clots Neuro Neurologic: Yes numbness, Yes tingling, No weakness Exam Const General: cooperative, healthy appearing, comfortable, no acute distress [facility] Head: normal to inspection Eyes General: appearance normal, both eyes and all related structures Neck Neck: normal visual inspection Neck mass: No Resp Effort & Inspection: normal respiratory effort Auscultation: clear to auscultation bilaterally Cardio Rate: regular rate Rhythm: regular rhythm Heart Sounds: no murmurs GI Inspection: normal to inspection Palpation: soft Auscultation: normal bowel sounds Skin General: no rashes or lesions noted Neuro General: no focal motor deficits, CN's II-XI intact bilaterally Extrem General: normal to inspection Psych Appearance: grossly normal Affect: normal affect Assessment & Plan Problems 1. Black tarry stools K92.1 2. Acute hemorrhagic colitis K52.[address] Lange will plan to perform an upper and lower endoscopy. Procedure details, risks and benefits have been explained. Patient has had the opportunity to ask and have questions answered. Patient verbally understands and agrees to proceed with the proposed procedure. We will plan 2 days of Miralax bowel prep prior to the procedure. Hold Coumadin 3 days prior to the procedure. Coding Level of Care Code Off vis,est,level 3 Diagnoses Black tarry stools K92.1 Acute hemorrhagic colitis K52.9 02/07/19 1116 <Electronically signed by Alejandrina ortega PA-C> Date _ Alejandrina Gonzalez PA-C I have re-examined the patient. There are no clinical changes since date of exam.
[2019-02-28 11:20] VITALS: BMI 34.9
[2019-03-07] VITALS (8 sets, daily range): BP systolic 88–126; BP diastolic 46–73; PULSE 64–79; RESP 14–20; TEMP 36.3–36.6; O2SAT 94–99; BMI 34.4
[2019-03-07 08:25] LABS: Prothrombin Time Fingerstick 18.8 SEC (11.9-14.4)
[2019-03-07 08:45] LABS: Bedside Glucose 122 mg/dL (70-110)
--- NOTE | 2019-03-07 09:00 | EGD_PTH ---
PATIENT: PANDA MARCELO LOC: EN U#:[id number] AGE/SX: 78/M ROOM: RE03/07/[address]: Dr. Thomas Lange MD : 1940 BED: DIS: 03/07/2019 SPEC #: [id number] RECD: 03/07/19 11:03 STATUS: SOTO SHAHZAD #: [id number] MONY: 03/07/19 09:[address]: Thomas Lange DEPT: SURGICAL PATHOLOGY RECD BY: Vandana Carter ENTERED: 03/07/19 11:26 SP TYPE: EGD BIOPSY [facility] DR: Dr. Man Cha MD Tissues: A - Gastric mucous membrane B - Esophagus, NOS C - Ascending colon D - Transverse colon E - Descending colon F - Descending colon Procedures: Surgery Specimen Level IV HEADER OPERATION: Colonoscopy, EGD ([facility] [place]) PRE-OP DIAGNOSIS: Black tarry stools, hemorrhagic colitis TISSUE SUBMITTED: A. Antrum biopsy for histo and H. pylori, B. Distal esophagus biopsy, C. Ascending colon polyp biopsy, D. Proximal transverse polyp biopsy, E. Descending colon polyp biopsy, F. Descending polyp MICROSCOPIC DIAGNOSIS A. Antrum, biopsy: Mild gastritis. See microscopic description and comment. B. Distal esophagus, biopsy: Fragments of squamous epithelium with minimal chronic inflammation. C. Ascending colon polyp, biopsy: Fragments of tubular adenoma. D. Proximal transverse colon polyp, biopsy: Tubular adenoma. E. Descending colon polyp, biopsy: Polypoid fragment of colonic mucosa, no pathologic diagnosis. F. Descending colon polyp, biopsy: Tubular adenoma. SJ:marita 03/08/19 COMMENT A. The results of immunohistochemistry for Helicobacter pylori will be reported separately ([id number]). MICROSCOPIC DESCRIPTION Slides are reviewed. A. The specimen shows fragments of gastric mucosa with chronic inflammatory cell infiltrates in the lamina propria consisting of lymphocytes and plasma cells, consistent with mild chronic gastritis. GROSS DESCRIPTION A - Received in fixative is one container labeled with the patient's name and designated antrum biopsy. The specimen consists of two irregular fragments of light diamond soft tissue that in aggregate measure 0.4 x 0.2 x 0.1 cm. The specimen is totally submitted in one cassette. B - Received in fixative is one container labeled with the patient's name and designated distal esophagus biopsy. The specimen consists of multiple irregular fragments of light diamond soft tissue that in aggregate measure 0.5 x 0.3 x 0.1 cm. The specimen is totally submitted in one cassette. C - Received in fixative is one container labeled with the patient's name and designated ascending colon polyp. The specimen consists of multiple irregular fragments of light diamond soft tissue that in aggregate measure 1 x 0.4 x 0.1 cm. The specimen is totally submitted in one cassette. D - Received in fixative is one container labeled with the patient's name and designated proximal transverse polyp biopsy. The specimen consists of one irregular fragment of light diamond soft tissue that measures 0.4 x 0.3 x 0.1 cm. The specimen is totally submitted in one cassette. E - Received in fixative is one container labeled with the patient's name and designated descending colon polyp biopsy. The specimen consists of one irregular fragment of light diamond soft tissue that measures 0.3 x 0.2 x 0.1 cm. The specimen is totally submitted in one cassette. F - Received in fixative is one container labeled with the patient's name and designated descending colon polyp. The specimen consists of a piece of diamond-pink polyp measuring 0.7 x 0.5 x 0.5 cm. The specimen is totally submitted in one cassette. / SJ:rg 03/07/19 TC:1 [facility]: [id number] x6 ADDENDUM ADDENDUM ADDENDUM 03/13/2019 11:47 ADDENDUM 03/13/2019 11:47 ADDENDUM 03/13/2019 11:47 ADDENDUM 03/13/2019 11:47 ADDENDUM 03/13/2019 11:47 E. Descending colon polyp, biopsy: During QC review, Dr. Gu favored the diagnosis of focal acute colitis/cryptitis.
--- NOTE | 2019-03-07 09:00 | IMM_PTH ---
PATIENT: PANDA MARCELO LOC: EN U#:[id number] AGE/SX: 78/M ROOM: RE03/07/[address]: Dr. Thomas Lange MD : 1940 BED: DIS: 03/07/2019 SPEC #: [id number] RECD: 03/07/19 13:41 STATUS: SOTO REMartha #: [id number] OMNY: 03/07/19 09:[address]: Thomas Lange DEPT: IMMUNOHISTOCHEMISTRY RECD BY: Isabel Mensah ENTERED: 03/07/19 13:42 SP TYPE: IMMUNO OTHR DR: Dr. Man Cha MD Tissues: A - Stomach, NOS Procedures: H Pylori (initial) PHYSICIAN & INSTITUTION [place] [id number] SPECIMEN INFORMATION: Tissue Source: A - Antrum biopsy Clinical Info: Black, tarry stools; hemorrhagic colitis Specimen Number: [id number] CPT code: 91127 METHODOLOGY: Deparaffinized sections of prefer/formalin-fixed tissue or PAP/DQ stained slides are incubated with monoclonal/polyclonal antibodies/oligonucleotide probes. Localization is made via biotin free immunoperoxidase method. Appropriate controls are performed and reacted as expected. Results on target cell population are indicated in the following table: RESULTS: ANTIBODY / CLONE RESULT Block A H Pylori (polyclonal) negative These tests were developed and their performance characteristics determined by [facility]. They may not have been cleared or approved by the U.S. Food and Drug Administration. The FDA has determined that such clearance or approval is not necessary. INTERPRETATION: A. Antrum biopsy: Negative for Helicobacter pylori organisms. SJ:marita 03/08/19
--- NOTE | 2019-03-07 10:08 | OP.ENDO_ITS ---
03/07/2019 Man Cha Re : Upper GI endoscopy procedure for Channing oGetzr Starla This procedure was performed on Thursday, March 07, 2019. My impressions and recommendations are as follows: Impressions : - Z-line regular, 42 cm from the incisors. Biopsied. - 1 cm hiatal hernia. - Erythematous mucosa in the antrum. Biopsied. - Normal examined duodenum. Recommendations : - Discharge patient to home. - Resume previous diet. - Continue present medications. - Telephone my office for pathology results in 1 week. Mild antral erythema and minimal blood/mucous streaks may be consistent with melena. Will treat with acid suppression My findings are described in the full procedure note, which is enclosed. If I can be of further assistance, please feel free to contact me at Doctor phone number(s): Work: . Sincerely, Thomas Lange MD 03/07/2019 10:07:19 AM This report has been signed electronically.
--- NOTE | 2019-03-07 10:11 | OP.ENDO_ITS ---
03/07/2019 Man Cha Re : Colonoscopy procedure for Channing Floyd Dear Starla This procedure was performed on Thursday, March 07, 2019. My impressions and recommendations are as follows: Impressions : - Hemorrhoids found on perianal exam. - Diverticulosis in the sigmoid colon. - One 6 mm polyp in the proximal ascending colon, removed with a cold biopsy forceps. Resected and retrieved. - One 4 mm polyp in the proximal transverse colon, removed with a cold biopsy forceps. Resected and retrieved. - One 3 mm polyp in the mid descending colon, removed with a cold biopsy forceps. Resected and retrieved. - One 9 mm polyp in the distal descending colon, removed with a hot snare. Resected and retrieved. Recommendations : - Await pathology results. - Repeat colonoscopy in 3 years for surveillance. - Telephone my office for pathology results in 1 week. - Discharge patient to home. - Resume previous diet. - Continue present medications. My findings are described in the full procedure note, which is enclosed. If I can be of further assistance, please feel free to contact me at Doctor phone number(s): Work: . Sincerely, Thomas Lange MD 03/07/2019 10:11:03 AM This report has been signed electronically.
== END 2019-03-07 10:51 | disposition home or self-care (01) ==
LOC: EN 07:55 → AC 07:56
PROVIDERS: Family Provider Family Medicine; PCP Family Medicine; Referring Provider Family Medicine; Visit Provider Surgery
PROC: 0DJD8ZZ Inspection of Lower Intestinal Tract, Via Natural or Artificial Opening Endoscopic (ICD-10-PCS; CPT 45378; principal; 2019-03-07 08:55)
DX: K52.9 Noninfective gastroenteritis and colitis, unspecified (principal); D12.2 Benign neoplasm of ascending colon; D12.3 Benign neoplasm of transverse colon; K44.9 Diaphragmatic hernia without obstruction or gangrene; K64.9 Unspecified hemorrhoids; K92.1 Melena; K57.30 Diverticulosis of large intestine without perforation or abscess without bleeding; D12.4 Benign neoplasm of descending colon; I48.91 Unspecified atrial fibrillation; Z79.01 Long term (current) use of anticoagulants; Z79.899 Other long term (current) drug therapy; Z79.84 Long term (current) use of oral hypoglycemic drugs; J44.9 Chronic obstructive pulmonary disease, unspecified; E11.9 Type 2 diabetes mellitus without complications; I50.32 Chronic diastolic (congestive) heart failure; I11.0 Hypertensive heart disease with heart failure; M19.90 Unspecified osteoarthritis, unspecified site; M10.9 Gout, unspecified; F17.200 Nicotine dependence, unspecified, uncomplicated
CPT/HCPCS: 43239; 45380; 45385; 36416; 82962; 85610; 88305; 88342; J7120

== ENCOUNTER → 2019-07-25 16:07 | Outpatient (CLI) | payer MEDICARE, OTHER, SELFPAY ==
[2019-03-07 08:18] VITALS: BMI 34.4
[2019-07-25 17:23] LABS: Absolute Lymphocyte Count 0.53 X10^3/uL (0.83-4.51); Absolute Neutrophil Count 6.1 X10^3/uL (2.0-7.7); Basophil# 0.05 X10^3/uL; Basophil% 0.7 % (0-1); Eosinophil# 0.01 X10^3/uL; Eosinophils% 0.1 % (0-5); Hematocrit 45.6 % (40-54); Hemoglobin 14.5 g/dL (13.0-16.5); Lymphocyte # 0.53 X10^3/ul (4.0); Mean Corp Hgb Conc 31.8 g/dL (32-36); Mean Corpuscular Hgb 30.5 pg (27.0-32.0); Mean Corpuscular Volume 95.8 fL (80-94); Monocyte# 0.86 X10^3/uL; Monocyte% 11.3 % (0-10); NRBC Flagged by Analyzer 0 % (0-5); Neutrophil # 6.14 X10^3/uL (2.7-7.7); Neutrophil % 80.5 % (47-70); POSITIVE DIFFERENTIAL YES; Platelet Count 210 K/mm3 (150-450); RBC Distribution Width CV 15.2 % (11.6-14.6); RBC Distribution Width SD 52.9 fl (35.1-43.9); Red Blood Count 4.76 M/mm3 (4.6-6.2); White Blood Count 7.6 K/mm3 (4.4-11.0)
[2019-07-25 17:28] LABS: Differential Indicated SCAN CRITERIA MET
[2019-07-25 17:34] LABS: ALB/GLOB Ratio 0.9 RATIO (0.9-2.4); AST(SGOT) 42 U/L (15-37); Alanine Aminotransfer ALT/SGPT 42 U/L (16-61); Albumin, Serum 3.6 g/dL (3.2-5.0); Alkaline Phosphatase 152 U/L (45-117); Anion Gap 7 (5-15); BUN 18 mg/dL (7-18); Calcium,Total 9.3 mg/dL (8.5-10.1); Chloride 107 mmol/L (98-107); Creatinine, Serum 1.29 mg/dL (0.70-1.30); EST Glomerular Filtration Rate 57 mL/min (>60); Est Glom Filt Rate - Afr Amer 69 mL/min (>60); Globulin 3.8 g/dL (2.2-4.2); Glucose 148 mg/dL (74-106); Potassium 4.5 mmol/L (3.5-5.1); Protein, Total 7.4 g/dL (6.4-8.2); Sodium Level 139 mmol/L (136-145); Thyroid Stim Hormone (TSH) 3.47 uIU/mL (0.358-3.74)
[2019-07-25 17:58] LABS: Differential Comment SCANNED
[2019-07-25 18:12] LABS: BNP,B-Type NATRIURETIC PEPTIDE 325.6 pg/mL (0-100)
== END ==
LOC: LAB.FUTURE 16:09 → BFHLAB 16:09
PROVIDERS: Family Provider Family Medicine; PCP Family Medicine; Visit Provider Family Medicine
DX: I48.91 Unspecified atrial fibrillation (principal); I50.9 Heart failure, unspecified; R23.1 Pallor; R05 Cough; R09.02 Hypoxemia
CPT/HCPCS: 36415; 80053; 83735; 83880; 84443; 85025

== ENCOUNTER → 2019-07-31 10:59 | Outpatient (CLI) | payer MEDICARE, OTHER, SELFPAY ==
[2019-03-07 08:18] VITALS: BMI 34.4
[2019-07-31 12:43] LABS: ALB/GLOB Ratio 0.9 RATIO (0.9-2.4); AST(SGOT) 56 U/L (15-37); Alanine Aminotransfer ALT/SGPT 55 U/L (16-61); Albumin, Serum 3.5 g/dL (3.2-5.0); Alkaline Phosphatase 152 U/L (45-117); Anion Gap 5 (5-15); BUN 21 mg/dL (7-18); BUN/Creat Ratio 15.9 RATIO (10-20); Bilirubin, Direct 0.37 mg/dL (0.00-0.30); Calcium,Total 8.8 mg/dL (8.5-10.1); Chloride 103 mmol/L (98-107); Creatinine, Serum 1.32 mg/dL (0.70-1.30); EST Glomerular Filtration Rate 55 mL/min (>60); Est Glom Filt Rate - Afr Amer 67 mL/min (>60); Globulin 3.8 g/dL (2.2-4.2); Glucose 173 mg/dL (74-106); Potassium 4.2 mmol/L (3.5-5.1); Protein, Total 7.3 g/dL (6.4-8.2); Sodium Level 136 mmol/L (136-145)
[2019-07-31 12:46] LABS: BNP,B-Type NATRIURETIC PEPTIDE 265.6 pg/mL (0-100)
== END ==
PROVIDERS: Family Provider Family Medicine; PCP Family Medicine; Visit Provider Family Medicine
DX: I50.9 Heart failure, unspecified (principal); R17 Unspecified jaundice
CPT/HCPCS: 36415; 80053; 82248; 83880

== ENCOUNTER → 2019-09-28 09:47 | Outpatient (CLI) | payer MEDICARE, OTHER, SELFPAY ==
[2019-03-07 08:18] VITALS: BMI 34.4
[2019-09-05 13:16] VITALS: BMI 35.1
[2019-09-28 13:02] LABS: Anion Gap 6 (5-15); BUN 23 mg/dL (7-18); BUN/Creat Ratio 16.7 RATIO (10-20); Calcium,Total 9.2 mg/dL (8.5-10.1); Chloride 107 mmol/L (98-107); Creatinine, Serum 1.38 mg/dL (0.70-1.30); EST Glomerular Filtration Rate 53 mL/min (>60); Est Glom Filt Rate - Afr Amer 64 mL/min (>60); Glucose 145 mg/dL (74-106); Sodium Level 140 mmol/L (136-145)
[2019-09-28 13:10] LABS: BNP,B-Type NATRIURETIC PEPTIDE 173.6 pg/mL (0-100)
== END ==
PROVIDERS: Family Provider Family Medicine; PCP Family Medicine; Visit Provider Family Medicine
DX: I50.9 Heart failure, unspecified (principal); I11.9 Hypertensive heart disease without heart failure; R17 Unspecified jaundice
CPT/HCPCS: 36415; 80048; 83880

== ENCOUNTER → 2019-10-24 10:31 | Outpatient (CLI) | payer MEDICARE, OTHER, SELFPAY ==
[2019-09-05 13:16] VITALS: BMI 35.1
--- NOTE | 2019-10-23 | LES_PTH ---
PATIENT: PANDA MARCELO LOC: [facility] U#:[id number] AGE/SX: 85/M ROOM: RE10/24/[address]: Dr. Donovan Richmond MD : 1940 BED: DIS: SPEC #: [id number] RECD: 10/24/19 10:15 STATUS: SOTO SHAHZAD #: [id number] MONY: 10/23/19 00:[address]: Donovan Richmond DEPT: SURGICAL PATHOLOGY RECD BY: Randal Styles ENTERED: 10/24/19 13:34 SP TYPE: Lesion OTHR DR: Dr. Man Cha MD Tissues: Skin of eyelid, NOS Procedures: Surgery Specimen Level IV HEADER OPERATION: Biopsy of LLL lesion PRE-OP DIAGNOSIS: Ulcerated LLL margin lesion suspicious for BCCA TISSUE SUBMITTED: LLL lesion MICROSCOPIC DIAGNOSIS LLL lesion, biopsy: Basal cell carcinoma. CYNTHIA:marita 10/25/19 MICROSCOPIC DESCRIPTION Slides are reviewed. GROSS DESCRIPTION Received in fixative is one container labeled with the patient's name and designated LLL. The specimen consists of a piece of diamond-brown skin measuring 0.4 x 0.2 x 0.1 cm. The specimen is totally submitted in one cassette. / SJ:marita 10/24/19 TC:0 CPT: 55475
== END ==
PROVIDERS: PCP Family Medicine; Referring Provider Ophthalmology; Visit Provider Ophthalmology
DX: C44.91 Basal cell carcinoma of skin, unspecified (principal)
CPT/HCPCS: 88305

== ENCOUNTER → 2020-01-23 10:52 | Outpatient (CLI) | payer MEDICARE, OTHER, SELFPAY ==
[2019-09-05 13:16] VITALS: BMI 35.1
[2020-01-23 10:00] VITALS: BMI 35.1
[2020-01-23 11:34] LABS: Absolute Lymphocyte Count 0.74 X10^3/uL (0.83-4.51); Absolute Neutrophil Count 7.1 X10^3/uL (2.0-7.7); Basophil# 0.06 X10^3/uL; Basophil% 0.7 % (0-1); Eosinophil# 0.04 X10^3/uL; Eosinophils% 0.5 % (0-5); Hematocrit 46.3 % (40-54); Hemoglobin 14.2 g/dL (13.0-16.5); Lymphocyte # 0.74 X10^3/ul (4.0); Lymphocyte % 8.6 % (19-41); Mean Corp Hgb Conc 30.7 g/dL (32-36); Mean Corpuscular Hgb 29.6 pg (27.0-32.0); Mean Corpuscular Volume 96.7 fL (80-94); Mean Platelet Vol. 9.3 fl (6.2-12.0); Monocyte# 0.62 X10^3/uL; Monocyte% 7.2 % (0-10); NRBC Flagged by Analyzer 0 % (0-5); Neutrophil # 7.07 X10^3/uL (2.7-7.7); Neutrophil % 82.1 % (47-70); Platelet Count 292 K/mm3 (150-450); RBC Distribution Width CV 14.4 % (11.6-14.6); RBC Distribution Width SD 51.2 fl (35.1-43.9); Red Blood Count 4.79 M/mm3 (4.6-6.2); White Blood Count 8.6 K/mm3 (4.4-11.0)
[2020-01-23 12:01] LABS: BNP,B-Type NATRIURETIC PEPTIDE 271.9 pg/mL (0-100)
[2020-01-23 12:06] LABS: ALB/GLOB Ratio 0.9 RATIO (0.9-2.4); AST(SGOT) 46 U/L (15-37); Alanine Aminotransfer ALT/SGPT 43 U/L (16-61); Albumin, Serum 3.5 g/dL (3.2-5.0); Alkaline Phosphatase 145 U/L (45-117); Anion Gap 10 (5-15); BUN 26 mg/dL (7-18); BUN/Creat Ratio 18.4 RATIO (10-20); Calcium,Total 9.1 mg/dL (8.5-10.1); Chloride 102 mmol/L (98-107); Creatinine, Serum 1.41 mg/dL (0.70-1.30); EST Glomerular Filtration Rate 51 mL/min (>60); Est Glom Filt Rate - Afr Amer 62 mL/min (>60); Globulin 3.7 g/dL (2.2-4.2); Glucose 148 mg/dL (74-106); Potassium 4.2 mmol/L (3.5-5.1); Protein, Total 7.2 g/dL (6.4-8.2); Sodium Level 137 mmol/L (136-145)
[2020-01-23 12:07] LABS: Hemoglobin A1c 6.7 % (3.8-5.6)
== END ==
PROVIDERS: Physician Assistant Medical; PCP Family Medicine; Referring Provider Family Medicine; Visit Provider Family Medicine
DX: I48.92 Unspecified atrial flutter (principal); I12.9 Hypertensive chronic kidney disease with stage 1 through stage 4 chronic kidney disease, or unspecified chronic kidney disease; I50.32 Chronic diastolic (congestive) heart failure; R60.9 Edema, unspecified; E11.22 Type 2 diabetes mellitus with diabetic chronic kidney disease
CPT/HCPCS: 36415; 80053; 83036; 83880; 85025

== ENCOUNTER → 2020-01-26 12:51 | Outpatient (CLI) | payer MEDICARE, OTHER, SELFPAY ==
[2020-01-23 11:19] VITALS: BMI 37.3
--- NOTE | 2020-01-26 12:54 | ECHOD_ITS ---
Reason For Study: CHF Procedure This was a 2D Doppler, Color Flow transthoracic echocardiogram. The study was technically difficult. Exam performed portable in patient room. Left Ventricle Normal LV size. Concentric left ventricular hypertrophy. The estimated ejection fraction is 60 %. Stage 2 diastolic dysfunction. Right Ventricle Normal RV size. Normal systolic function. Atria The left atrium is moderately enlarged. The right atrium is moderately enlarged. No doppler evidence for ASD. Mitral Valve There is no mitral valve stenosis. Trivial mitral valve insufficiency. Tricuspid Valve There is no tricuspid stenosis. Trivial tricuspid valve insufficiency. Pulmonary artery systolic pressure is 45-50 mmHg. Aortic Valve Aortic sclerosis, no stenosis. There is no aortic stenosis. No aortic valve insufficiency. Pulmonic Valve There is no pulmonic valvular stenosis. No pulmonic valve insufficiency. Great Vessels Normal aortic root. Pericardium/Pleural No pericardial effusion. MMode/2D Measurements & Calculations LVIDd: 4.9 cm IVSd: 1.5 cm Ao root diam: 3.3 cm LVIDs: 3.5 cm LVPWd: 1.5 cm RVDd: 4.5 cm FS: 28.7 % LAV(MOD-bp): 95.1 ml LA A4 area: 29.2 cm2 LA dimension(2D): 5.3 cm LAV(MOD-bp) Indexed: 41.7 ml/m2 LAV(MOD-sp2): 67.8 ml LAV(MOD-sp4): 101.1 ml RA A4 area: 27.4 cm2 Doppler Measurements & Calculations Ao V2 max: 83.2 cm/sec LV V1 max: 73.0 cm/sec TR max mary: 309.3 cm/sec Ao max P.8 mmHg LV V1 max P.1 mmHg TR max P.3 mmHg Interpretation Summary The estimated ejection fraction is 60 %. Stage 2 diastolic dysfunction. Concentric left ventricular hypertrophy. The left atrium is moderately enlarged. The right atrium is moderately enlarged. Trivial mitral valve insufficiency. Pulmonary artery systolic pressure is 45-50 mmHg. Ordering Physician: Mey Holloway Referring Physician: SHARON ORTEGA Performed By: Jennifer Adair, RDCS, RVT
== END ==
PROVIDERS: PCP Family Medicine; Referring Provider Physician Assistant Medical; Visit Provider Physician Assistant Medical
DX: I48.0 Paroxysmal atrial fibrillation (principal)
CPT/HCPCS: 93306

== ENCOUNTER → 2020-01-30 11:42 | Outpatient (CLI) | payer MEDICARE, OTHER, SELFPAY ==
[2020-01-30 10:21] VITALS: BMI 34.5
[2020-01-30 12:24] LABS: Prothrombin Time (Protime)PT. 37.7 SECONDS (11.7-14.9)
[2020-01-30 12:34] LABS: International Normalized Ratio 3.9
[2020-01-30 12:40] LABS: Anion Gap 7 (5-15); BUN 25 mg/dL (7-18); BUN/Creat Ratio 19.2 RATIO (10-20); Calcium,Total 9.2 mg/dL (8.5-10.1); Chloride 98 mmol/L (98-107); EST Glomerular Filtration Rate 56 mL/min (>60); Est Glom Filt Rate - Afr Amer 68 mL/min (>60); Glucose 119 mg/dL (74-106); Potassium 3.4 mmol/L (3.5-5.1); Sodium Level 137 mmol/L (136-145)
== END ==
PROVIDERS: PCP Family Medicine; Referring Provider Physician Assistant Medical; Visit Provider Physician Assistant Medical
DX: I11.0 Hypertensive heart disease with heart failure (principal); I50.32 Chronic diastolic (congestive) heart failure; I48.0 Paroxysmal atrial fibrillation; E78.5 Hyperlipidemia, unspecified; L03.116 Cellulitis of left lower limb
CPT/HCPCS: 36415; 80048; 85610

== ENCOUNTER → 2020-07-29 09:37 | Outpatient (CLI) | payer MEDICARE, OTHER, SELFPAY ==
[2020-07-23 11:22] VITALS: BMI 37.0
[2020-07-29 10:35] LABS: Absolute Neutrophil Count 6.4 X10^3/uL (2.0-7.7); Basophil# 0.04 X10^3/uL; Basophil% 0.5 % (0-1); Eosinophils% 1.2 % (0-5); Hematocrit 42.8 % (40-54); Hemoglobin 14.1 g/dL (13.0-16.5); Lymphocyte % 11.7 % (19-41); Mean Corp Hgb Conc 32.9 g/dL (32-36); Mean Corpuscular Hgb 31.3 pg (27.0-32.0); Mean Corpuscular Volume 94.9 fL (80-94); Mean Platelet Vol. 9.9 fl (6.2-12.0); Monocyte# 0.96 X10^3/uL; Monocyte% 11.3 % (0-10); NRBC Flagged by Analyzer 0 % (0-5); Neutrophil # 6.38 X10^3/uL (2.7-7.7); Neutrophil % 74.7 % (47-70); Platelet Count 249 K/mm3 (150-450); RBC Distribution Width CV 14.4 % (11.6-14.6); RBC Distribution Width SD 49.7 fl (35.1-43.9); Red Blood Count 4.51 M/mm3 (4.6-6.2); White Blood Count 8.5 K/mm3 (4.4-11.0)
[2020-07-29 11:21] LABS: ALB/GLOB Ratio 0.9 RATIO (0.9-2.4); AST(SGOT) 50 U/L (15-37); Alanine Aminotransfer ALT/SGPT 44 U/L (16-61); Albumin, Serum 3.6 g/dL (3.2-5.0); Alkaline Phosphatase 195 U/L (45-117); Anion Gap 8 (5-15); BUN 29 mg/dL (7-18); BUN/Creat Ratio 19.6 RATIO (10-20); Chloride 95 mmol/L (98-107); Creatinine, Serum 1.48 mg/dL (0.70-1.30); EST Glomerular Filtration Rate 48 mL/min (>60); Est Glom Filt Rate - Afr Amer 59 mL/min (>60); Glucose 144 mg/dL (74-106); Potassium 2.6 mmol/L (3.5-5.1); Protein, Total 7.6 g/dL (6.4-8.2); Sodium Level 138 mmol/L (136-145)
== END ==
PROVIDERS: PCP Family Medicine; Referring Provider Specialist; Visit Provider Specialist
DX: I50.32 Chronic diastolic (congestive) heart failure (principal)
CPT/HCPCS: 36415; 80053; 85025

== ENCOUNTER → 2020-07-31 08:55 | Outpatient (CLI) | payer MEDICARE, OTHER, SELFPAY ==
[2020-07-23 11:22] VITALS: BMI 37.0
[2020-07-31 10:41] LABS: Anion Gap 4 (5-15); BUN 34 mg/dL (7-18); BUN/Creat Ratio 21.7 RATIO (10-20); Calcium,Total 9.5 mg/dL (8.5-10.1); Chloride 98 mmol/L (98-107); Creatinine, Serum 1.57 mg/dL (0.70-1.30); EST Glomerular Filtration Rate 45 mL/min (>60); Est Glom Filt Rate - Afr Amer 55 mL/min (>60); Glucose 131 mg/dL (74-106); Potassium 3.1 mmol/L (3.5-5.1); Sodium Level 137 mmol/L (136-145)
== END ==
PROVIDERS: PCP Family Medicine; Referring Provider Specialist; Visit Provider Specialist
DX: I50.32 Chronic diastolic (congestive) heart failure (principal); E87.6 Hypokalemia
CPT/HCPCS: 36415; 80048

== ENCOUNTER → 2020-08-10 10:02 | Outpatient (CLI) | payer MEDICARE, OTHER, SELFPAY ==
[2020-08-01 14:15] VITALS: BMI 33.7
[2020-08-10 11:56] LABS: Anion Gap 6 (5-15); BUN 34 mg/dL (7-18); BUN/Creat Ratio 21.1 RATIO (10-20); Calcium,Total 9.6 mg/dL (8.5-10.1); Chloride 101 mmol/L (98-107); Creatinine, Serum 1.61 mg/dL (0.70-1.30); EST Glomerular Filtration Rate 44 mL/min (>60); Est Glom Filt Rate - Afr Amer 53 mL/min (>60); Glucose 117 mg/dL (74-106); Potassium 3.4 mmol/L (3.5-5.1); Sodium Level 137 mmol/L (136-145)
== END ==
PROVIDERS: PCP Family Medicine; Referring Provider Specialist; Visit Provider Specialist
DX: I11.0 Hypertensive heart disease with heart failure (principal); I50.32 Chronic diastolic (congestive) heart failure; E78.5 Hyperlipidemia, unspecified
CPT/HCPCS: 36415; 80048

== ENCOUNTER → 2020-08-21 13:04 | Outpatient (CLI) | payer MEDICARE, OTHER, SELFPAY ==
[2020-08-01 14:15] VITALS: BMI 33.7
[2020-08-21 13:43] LABS: Anion Gap 6 (5-15); BUN 25 mg/dL (7-18); BUN/Creat Ratio 15.7 RATIO (10-20); Calcium,Total 9.1 mg/dL (8.5-10.1); Chloride 106 mmol/L (98-107); Creatinine, Serum 1.59 mg/dL (0.70-1.30); EST Glomerular Filtration Rate 45 mL/min (>60); Est Glom Filt Rate - Afr Amer 54 mL/min (>60); Glucose 116 mg/dL (74-106); Potassium 3.7 mmol/L (3.5-5.1); Sodium Level 140 mmol/L (136-145)
== END ==
PROVIDERS: PCP Family Medicine; Referring Provider Physician Assistant Medical; Visit Provider Physician Assistant Medical
DX: I10 Essential (primary) hypertension (principal)
CPT/HCPCS: 36415; 80048

== ENCOUNTER → 2020-09-19 09:47 | Outpatient (CLI) | payer MEDICARE, OTHER, SELFPAY ==
[2020-09-19 09:06] VITALS: BMI 34.7
[2020-09-19 11:07] LABS: Anion Gap 6 (5-15); BUN 26 mg/dL (7-18); BUN/Creat Ratio 18.2 RATIO (10-20); Calcium,Total 8.5 mg/dL (8.5-10.1); Chloride 104 mmol/L (98-107); Creatinine, Serum 1.43 mg/dL (0.70-1.30); EST Glomerular Filtration Rate 50 mL/min (>60); Est Glom Filt Rate - Afr Amer 61 mL/min (>60); Glucose 133 mg/dL (74-106); Sodium Level 139 mmol/L (136-145)
== END ==
PROVIDERS: PCP Family Medicine; Referring Provider Physician Assistant Medical; Visit Provider Physician Assistant Medical
DX: I11.0 Hypertensive heart disease with heart failure (principal); I50.32 Chronic diastolic (congestive) heart failure; I48.0 Paroxysmal atrial fibrillation
CPT/HCPCS: 36415; 80048

== ENCOUNTER → 2020-09-30 11:44 | Outpatient (CLI) | payer MEDICARE, OTHER, SELFPAY ==
[2020-09-30 12:24] LABS: Pathologist Comment May follow
--- NOTE | 2020-09-30 12:44 | VDLE_ITS ---
Reason For Study: Pain RIGHT GSV is normal. CFV is compressible, spontaneous, phasic, competent and demonstrates normal augmentation. FV is compressible, spontaneous, phasic, competent and demonstrates normal augmentation. POP V is compressible, spontaneous, phasic, competent and demonstrates normal augmentation. T/P Trunk is compressible. PTV is compressible. Unable to visualize Rt PeroV. Procedure Exam performed in department. A preliminary report was called and/or faxed to Dr. Cohen. Interpretation Summary There is no evidence of right lower extremity deep vein thrombosis. Right great saphenous vein appears patent and compressible segmentally. The right peroneal vein could not be visualized to document. Ordering Physician: Arik Cohen Referring Physician: Man Cha Performed By: Anaid Bynum, JUDE, RVT
[2020-09-30 12:51] LABS: Lactic Acid 2.3 mmol/L (0.4-1.9)
[2020-09-30 12:53] LABS: Absolute Lymphocyte Count 0.51 X10^3/uL (0.83-4.51); Absolute Neutrophil Count 9.8 X10^3/uL (2.0-7.7); Basophil# 0.03 X10^3/uL; Basophil% 0.3 % (0-1); Eosinophil# 0.01 X10^3/uL; Eosinophils% 0.1 % (0-5); Hematocrit 45.2 % (40-54); Lymphocyte # 0.51 X10^3/ul (4.0); Lymphocyte % 4.5 % (19-41); Mean Corpuscular Hgb 30.4 pg (27.0-32.0); Monocyte# 0.97 X10^3/uL; Monocyte% 8.5 % (0-10); NRBC Flagged by Analyzer 0 % (0-5); Neutrophil # 9.76 X10^3/uL (2.7-7.7); POSITIVE DIFFERENTIAL YES; Platelet Count 248 K/mm3 (150-450); RBC Distribution Width CV 15.3 % (11.6-14.6); RBC Distribution Width SD 55.3 fl (35.1-43.9); Red Blood Count 4.61 M/mm3 (4.6-6.2); White Blood Count 11.4 K/mm3 (4.4-11.0)
[2020-09-30 12:54] LABS: Differential Indicated SCAN CRITERIA MET
[2020-09-30 13:00] LABS: International Normalized Ratio 2.5; Prothrombin Time (Protime)PT. 26.4 SECONDS (11.7-14.9)
[2020-09-30 13:09] LABS: Erythrocyte Sedimentation Rate 48 mm/hr (0-20)
[2020-09-30 13:09] LABS: Synovial Fld Mononuclear WBC % 13.5 %; Synovial Fld Polynuclear WBC % 86.5 %
[2020-09-30 13:18] LABS: Uric Acid 5.1 mg/dL (3.5-7.2)
[2020-09-30 13:20] LABS: AUTO B FLUID DILUENT BKGD CT WBC <0.1 RBC <0.01 (W<.1,R<.01)
[2020-09-30 13:21] LABS: Appearance /Synovial Fluid Cloudy (CLEAR); Color / Synovial Fluid Yellow (Pale Yellow); Source- Body Fluid SYNOVIAL
[2020-09-30 13:59] LABS: Body Fluid QC Type(s) BF1Q,BF2Q; Lymph 1 %; Monocyte /Synovial Fluid 22 %; Neutrophil 77 % (0-25)
[2020-10-01 12:47] LABS: Pathologist Review Reviewed
[2020-10-01 13:12] LABS: GLUCOSE, SYNOVIAL FLUID 128 mg/dL (.)
== END ==
PROVIDERS: PCP Family Medicine; Referring Provider Orthopaedic Surgery; Visit Provider Orthopaedic Surgery
DX: M25.461 Effusion, right knee (principal); M25.561 Pain in right knee; M79.89 Other specified soft tissue disorders; E78.5 Hyperlipidemia, unspecified; Z96.659 Presence of unspecified artificial knee joint
CPT/HCPCS: 36415; 82945; 83605; 84157; 84550; 85025; 85610; 85652; 86140; 87070; 87075; 87205; 89050; 89051; 89060; 93971

== ENCOUNTER 2020-09-30 14:50 | Inpatient (IN) | payer MEDICARE, OTHER, SELFPAY ==
[2020-09-30] VITALS (8 sets, daily range): BP systolic 117–128; BP diastolic 62–85; PULSE 60–75; RESP 18–20; TEMP 36.4–37.9; O2SAT 93–96; BMI 34.7; BMI 35.4
--- NOTE | 2020-09-30 15:11 | ED.VISSUMM ---
- ER Visit Summary Date of Service: 09/30/20 Chief Complaint: Right knee pain History of Present Illness: The patient is a 80 M presenting with right knee pain. Patient states this started yesterday. He denies injury. He started having swelling and pain in his right knee and difficulty with ambulation. He was seen by orthopedics today. His knee was aspirated by orthopedics. He was sent to the ED for admission for surgery. He denies fever. Denies other complaints. Physical Examination: Vitals are stable. Patient is afebrile. Alert no acute distress. HEENT exam is unremarkable. Neck is supple. Lungs are clear and equal bilaterally. Heart is regular rate and rhythm. Abdomen is soft nontender nondistended. Extremities right knee swelling and tenderness. Painful range of motion. Neurovascular intact distally Skin is warm and dry. No focal neurologic deficit. Remainder of exam is unremarkable. Emergency Department Course and Treatment: Labs performed prior to arrival, white count 11.4. INR 2.4. Lactic acid 2.3. ESR 48, CRP 156. Synovial fluid shows white blood cell 68,420, 77% neutrophils, no crystals. Blood cultures were sent. He was given Vanc and Zosyn IV. Discussed with Dr Cruz and hospitalist for admission. Disposition: Admission Impression: Right knee infection This note was generated with [employer] dictation software. It may contain incorrect words, spelling, and punctuation that were not noted in review of the chart prior to signing ED Disposition - Plan for ED Patient: Referrals: Man Cha MD [Primary Care Provider] -
[2020-09-30 15:50] LABS: Anion Gap 6 (5-15); BUN 29 mg/dL (7-18); Chloride 104 mmol/L (98-107); Creatinine, Serum 1.38 mg/dL (0.70-1.30); EST Glomerular Filtration Rate 52 mL/min (>60); Est Glom Filt Rate - Afr Amer 63 mL/min (>60); Estimated Creatinine Clearance 42.61 ml/min; Glucose 142 mg/dL (74-106); Potassium 4.8 mmol/L (3.5-5.1); Sodium Level 135 mmol/L (136-145)
--- NOTE | 2020-09-30 15:53 | NURSING ---
DR MARIAJOSE ANTOINE
--- NOTE | 2020-09-30 16:10 | HP.PCM_ITS ---
Problem List (1) Septic arthritis of knee, right Status: Acute (2) Atrial flutter Status: Chronic Qualifiers: (3) Hyperlipidemia Status: Chronic Qualifiers: (4) Essential hypertension Status: Chronic (5) Paroxysmal atrial fibrillation Status: Chronic (6) COPD (chronic obstructive pulmonary disease) Status: Chronic (7) Chronic diastolic heart failure Status: Chronic History of Present Illness Date of Admission: 09/30/20 Chief Complaint: Right knee pain and swelling for 2 day The patient is a 80 year old M with multiple comorbidities as listed above including bilateral TKR, last right side in 2014 came to ER with right knee pain and swelling that started 2 days ago. Patient denies any fever or chills. It is started spontaneously without inciting/precipitating factor or trauma. Patient went to see Dr. Adame and had right knee aspiration was sent to ER for right knee incision and drainage. Patient denies nausea, vomiting, headache or other systemic symptoms. In ED, patient afebrile, heart rate 62/min, BP 117/85, RR 18, pulse ox 93% on room air. Labs shows mild leukocytosis 11.4 thousand, INR 2.5, BUN/creatinine 29/1.38 and sodium 135. Patient started on IV Zosyn in ED. Gram stain of synovial fluid shows 4+ WBCs but no organisms. Cell count shows WBC 68.4 thousand, neutrophils 53.3 thousand, 86.5%. Patient also has bilateral lower extremity edema, redness and chronically scabs, right more than left. Venous Doppler of right lower extremity is negative. Right knee x-ray shows prosthesis well aligned with increased in intra-articular space. Official report pending. Patient has history of atrial fibrillation/flutter on Coumadin, COPD not on home oxygen, chronic diastolic heart failure and hypertension. Past Medical History Past Medical History (Chronic Problems): Chronic Problems (Last Reviewed 09/19/20 @ 09:29 by Mey JOHNSON, PA) Atrial flutter (Chronic) Hyperlipidemia (Chronic) Essential hypertension (Chronic) Paroxysmal atrial fibrillation (Chronic) COPD (chronic obstructive pulmonary disease) (Chronic) Chronic diastolic heart failure (Chronic) Medical History: Medical History (Last Reviewed 09/19/20 @ 09:29 by Mey JOHNSON, PA) Atrial flutter (Chronic) I48.92 Hyperlipidemia (Chronic) E78.5 Essential hypertension (Chronic) I10 Paroxysmal atrial fibrillation (Chronic) I48.0 COPD (chronic obstructive pulmonary disease) (Chronic) J44.9 Chronic diastolic heart failure (Chronic) I50.32 Anticoagulated on Coumadin Z79.01 Colon polyps K63.5 Diabetic neuropathy E11.40 Gout M10.9 History of spinal stenosis Z87.39 OAB (overactive bladder) N32.81 Osteoarthritis M19.90 Type 2 diabetes mellitus without complication E11.9 Acute hemorrhagic colitis (Resolved) K52.9 Black tarry stools (Resolved) K92.1 Kidney stones N20.0 Rectal bleeding (Resolved) K62.5 Right rotator cuff tear arthropathy M75.101, M12.811 Allergies No Known Allergies Allergy (Verified 09/30/20 14:54) Home Medications: Ambulatory Orders Medication Instructions Recorded metFORMIN HCl [Glucophage] 500 mg PO BIDCM 07/23/15 Amlodipine [Norvasc] 5 mg PO DAILY 03/21/18 Metoprolol(XL)Succ [Toprol Xl 100 mg PO DAILY 02/20/19 (Beta Zeina)] allopurinol 300 mg tablet 300 mg PO DAILY 02/27/19 magnesium 250 mg tablet 250 mg PO DAILY 02/28/19 oxybutynin chloride 5 mg 5 mg PO BID tab 07/23/20 tablet,extended release 24 hr furosemide 40 mg tablet 40 mg PO BID tab 09/19/20 potassium chloride 20 mEq 20 meq PO BID tab 09/19/20 tablet,extended release(part/cryst) Vitamin B Complex 1 tab PO DAILY 09/30/20 Warfarin Sodium 2 mg PO DAILY 09/30/20 Surgical History: Surgical History (Last Reviewed 09/19/20 @ 09:29 by Mey JOHNSON, PA) History of back surgery Z98.890 History of bilateral knee replacement Z96.653 History of carpal tunnel release of both wrists Z98.890 Hx of shoulder surgery Z98.890 Left Hx of umbilical hernia repair Z98.890, Z87.19 Surgical History: herniorrhaphy, total knee arthroplasty - Bilateral., - - Right wrist fracture, Kidney stones, Bilateral carpal tunnel release, back surgery. Psychiatric History: No pertinent psych hx Smoking Status: Current every day smoker Tobacco Use: Pipe - *Family History Maternal Family History: Family History (Last Reviewed 09/19/20 @ 09:29 by Mey JOHNSON, PA) Brother Diabetes Sister Cancer Grandfather Heart disease Sister Alzheimers disease Sister Parkinson disease History Items: No pertinent history Paternal Family History: Family History (Last Reviewed 09/19/20 @ 09:29 by Mey JOHNSON, PA) Brother Diabetes Sister Cancer Grandfather Heart disease Sister Alzheimers disease Sister Parkinson disease History Items: No pertinent history Sibling Family History: Family History (Last Reviewed 09/19/20 @ 09:29 by Mey JOHNSON, PA) Brother Diabetes Sister Cancer Grandfather Heart disease Sister Alzheimers disease Sister Parkinson disease History Items: Cancer, Diabetes, Heart Disease Review of Systems Constitutional: Reports: Chills. Denies: Fever HEENT: Denies: Head Aches, Sinus Congestion, Sinus Drainage Cardiovascular: Denies: Chest Pain, Palpitations Respiratory: Denies: Cough, Shortness of breath at rest, Sputum production Gastrointestinal: Denies: Abdominal Pain, Nausea, Vomiting Genitourinary: Denies: Dysuria Musculoskeletal: Reports: Joint Pain, Joint stiffness, Joint swelling, Joint Tenderness Skin: Reports: Rash, - - Chronic scab. Denies: Wounds Neurological: Denies: Numbness, Tingling, Focal weakness Psychiatric: Denies: Anxiety, Depression, Homicidal Ideations, Suicidal Ideations Hematologic/ Lymphatic: Denies: Easy Bruising, Easy Bleeding VTE Information - Inpt Only VTE Present on Admission: No VTE Mechan Device Prophylaxis: None VTE Pharm Prophylaxis ordered?: No Reason prophylaxis not ordered:: Procedure Not Indicated - Patient already on Coumadin, INR therapeutic Patient Problems: Active and Suspected Problems (Last Reviewed 09/19/20 @ 09:29 by Mey JOHNSON, PA) Septic arthritis of knee, right (Acute) Objective: Physical exam General: Alert, Oriented x3, Cooperative HEENT: Atraumatic, PERRLA, EOMI, Normocephalic Oral: No Gingival or Mucosal Lesions/ Ulcerations Neck: Supple, No JVD, Negative Carotid Bruits Lungs: Air entry diminished in bilateral lung bases. No crepitation/rhonchi. No tachypnea or hypoxia Cardiovascular: Regular rate, Regular Rhythm, Normal S1, Normal S2, No murmurs Abdomen: Bowel Sounds Present, Soft, Non Tender, Non-Distended : No renal angle tenderness. No suprapubic tenderness. Extremities: Bilateral lower leg edema, right more than left. Mild erythema and scabs suggestive of venous edema/varicose vein. Capillary Refill Less than 3 Seconds Skin: No rashes, No breakdown Musculoskeletal: Right knee tender mainly femoral condyle. ROM restricted on right knee. Neurological: Cranial nerves II-XII grossly intact, Deep Tendon Reflexes 2+/4 and Symmetrical, Neuro grossly intact Psych/Mental Status: Normal Affect, Appropriate. - Physical Exam Vitals/I&O's: Vital Signs Temp Pulse Resp BP Pulse Ox 97.5 F L 62 18 117/85 H 93 09/30/20 14:53 09/30/20 14:53 09/30/20 14:53 09/30/20 14:53 09/30/20 14:53 Oxygen Delivery Method Room Air Weight: 242 lb Body Mass Index (BMI) 34.7 Finger Stick Blood Glucose 196 Laboratory Results 09/30/20 15:20: Sodium 135 L, Potassium 4.8, Chloride 104, Carbon Dioxide 25.0, Anion Gap 6, BUN 29 H, Creatinine 1.38 H, Estim Creat Clear Calc 42.61, Est GFR (MDRD) Af Amer 63, Est GFR (MDRD) Non-Af 52 L, BUN/Creatinine Ratio 21.0 H, Glucose 142 H, Calcium 9.0 Current Medications Vancomycin HCl 1,750 mg/ (Sodium Chloride) 535 mls @ 250 mls/hr IV X1 ONE Stop: 09/30/20 18:38 Assessment/Plan All Active Problems (Last Reviewed 09/19/20 @ 09:29 by Mey JOHNSON, PA) Septic arthritis of knee, right (Acute) Acute hemorrhagic colitis (Resolved) Black tarry stools (Resolved) Rectal bleeding (Resolved) The patient is a 80 year old M with multiple comorbidities as listed above including bilateral TKR, last right side in 2014 came to ER with right knee pain and swelling that started 2 days ago. Patient has history of atrial fibrillation/flutter on Coumadin, COPD not on home oxygen, chronic diastolic heart failure and hypertension. 1. Acute septic arthritis of right knee: Patient is being admitted on MedSurg floor. Patient received 1 dose of vancomycin and Zosyn in ED. started on IV Unasyn for coverage of gram-negative and gram-positive organisms. MRSA nasal screen ordered. If positive, start on vancomycin. Dr. Cohen has been consulted. Plan for possible incision and drainage on Wednesday/. Patient has moderate perioperative risk based on history of atrial flutter, hypertension and diabetes mellitus. Twelve-lead EKG and chest x-ray ordered. Rapid SARS-CoV-2 antigen negative 2. Paroxysmal A. fib on Coumadin: Monitor INR. Hold the Coumadin. 3. Diabetes mellitus type 2: A1c ordered for tomorrow a.m. Accu-Cheks and AG and cover with Humalog sliding scale. BMP shows glucose 142. Patient on Metformin at home and will hold it. 4. Hypertension, chronic diastolic heart failure, dyslipidemia: Continue home medication to hold if SBP less than 120 mmHg. Patient on metoprolol succinate 100 mg daily, furosemide 40 mg twice daily with potassium and magnesium supplement, amlodipine. 5. COPD, mild and possible gout: Patient not on maintenance inhaler. On allopurinol 300 mg daily. DVT prophylaxis: SCD on left leg. Hold Coumadin Living will/advanced directive/end of life care: Patient does not have living will or advanced directive. His Mrs. Milagro Floyd is power of insurance defense attorney for health. After discussion of benefits/risks procedures involved with full code, DNR CC arrest and DNR CC, the patient opted for DNR-CC Arrest with no intubation Patient does not want artificial life support including intubation, tube feed, ventilator and/chest compression, central venous catheter, vasopressor and DC shock if needed Total time spent in [id number] encounter in discussion of advanced directive 16 minutes. Microbiology Past 72 Hours 09/30/20 15:12 Mucosa - Nose SARS-CoV-2 Antigen (Rapid) - Final Laboratory Results 09/30/20 15:20: Sodium 135 L, Potassium 4.8, Chloride 104, Carbon Dioxide 25.0, Anion Gap 6, BUN 29 H, Creatinine 1.38 H, Estim Creat Clear Calc 42.61, Est GFR (MDRD) Af Amer 63, Est GFR (MDRD) Non-Af 52 L, BUN/Creatinine Ratio 21.0 H, Glucose 142 H, Calcium 9.0 Inpatient E&M: 91311 Init Hosp L3 Procedures: 50657 Advncd Care Plan 30 Min
--- NOTE | 2020-09-30 16:26 | NURSING ---
MED SURG MARIAJOSE RIGHT KNEE INFECTION
--- NOTE | 2020-09-30 16:28 | EKG12_ITS ---
Test Reason : PRE-OP Blood Pressure : / mmHG Vent. Rate : 074 BPM Atrial Rate : 296 BPM P-R Int : 000 ms QRS Dur : 094 ms QT Int : 396 ms P-R-T Axes : 137 029 140 degrees QTc Int : 439 ms Atrial flutter Nonspecific T wave abnormality Abnormal ECG Confirmed by BHARTI LOPES, LAURA ([id number]), video effects editor NANCY CALDERON ([id number]) on 10/02/2020 9:00:19 AM Referred By: MARIAJOSE Confirmed By:LAURA HAY MD
--- NOTE | 2020-09-30 16:47 | RAD_ITS ---
STUDY: X-RAY CHEST REASON FOR EXAM: Male, 80 years old. HYPERTENSION; HX OF COPD TECHNIQUE: Frontal and lateral views of the chest. COMPARISON: None. FINDINGS: There are interstitial fibrotic changes of the lungs. Small bilateral pleural effusions. Normal size heart. Normal mediastinum and amauri. Normal visualized pulmonary arteries. Normal visualized aortic arch and descending thoracic aorta. There are diffuse degenerative changes of the visualized thoracic spine. There is degenerative osteoarthritis of the bilateral shoulders. There is no demonstrated abnormality of the visualized soft tissue structures of the upper abdomen. RAD/Chest PA and Lateral IMPRESSION: There are interstitial fibrotic changes of the lung bases. Electronically Signed: Heaven Feng MD at 8:09 EST Tel , Service support ,
[2020-09-30 17:52] LABS: Magnesium 2.7 mg/dL (1.6-2.6)
[2020-09-30 17:55] LABS: Bedside Glucose 151 mg/dL (70-110)
[2020-09-30 19:15] LABS: M R Staph aureus DNA By PCR Negative (Negative); Probe Check PASS; Specimen Processing Control PASS
[2020-09-30] MEDS: Famotidine 20 MG Tablet PO (21:32)
[2020-09-30 21:36] LABS: Bedside Glucose 159 mg/dL (70-110)
[2020-10-01] VITALS (7 sets, daily range): BP systolic 124–143; BP diastolic 78–83; PULSE 54–87; RESP 16–18; TEMP 36.7–37.2; O2SAT 94–96
--- NOTE | 2020-10-01 02:22 | PCS.PANDOC ---
PANDEMIC DOCUMENTATION INITIATED: Date: 09/30/20 Time: 1899
[2020-10-01] MEDS: 0.9% Saline Lock 10 ML Syringe IV (06:30)
[2020-10-01 06:39] LABS: Absolute Lymphocyte Count 0.51 X10^3/uL (0.83-4.51); Basophil# 0.04 X10^3/uL; Basophil% 0.4 % (0-1); Hematocrit 38.7 % (40-54); Hemoglobin 12.6 g/dL (13.0-16.5); Lymphocyte # 0.51 X10^3/ul (4.0); Lymphocyte % 4.7 % (19-41); Mean Corp Hgb Conc 32.6 g/dL (32-36); Mean Corpuscular Hgb 31.3 pg (27.0-32.0); Mean Corpuscular Volume 96.3 fL (80-94); Mean Platelet Vol. 9.7 fl (6.2-12.0); Monocyte% 11.1 % (0-10); NRBC Flagged by Analyzer 0 % (0-5); Neutrophil # 8.99 X10^3/uL (2.7-7.7); Neutrophil % 83.3 % (47-70); POSITIVE DIFFERENTIAL YES; Platelet Count 255 K/mm3 (150-450); RBC Distribution Width CV 14.9 % (11.6-14.6); RBC Distribution Width SD 52.7 fl (35.1-43.9); Red Blood Count 4.02 M/mm3 (4.6-6.2); White Blood Count 10.8 K/mm3 (4.4-11.0)
[2020-10-01 06:40] LABS: Bedside Glucose 138 mg/dL (70-110)
[2020-10-01 06:41] LABS: Differential Indicated SCAN CRITERIA MET
[2020-10-01 06:49] LABS: International Normalized Ratio 2.6; Prothrombin Time (Protime)PT. 27.8 SECONDS (11.7-14.9)
[2020-10-01 07:02] LABS: Anion Gap 8 (5-15); BUN 29 mg/dL (7-18); BUN/Creat Ratio 21.6 RATIO (10-20); Calcium,Total 8.6 mg/dL (8.5-10.1); Chloride 102 mmol/L (98-107); Creatinine, Serum 1.34 mg/dL (0.70-1.30); EST Glomerular Filtration Rate 54 mL/min (>60); Est Glom Filt Rate - Afr Amer 66 mL/min (>60); Estimated Creatinine Clearance 43.88 ml/min; Glucose 142 mg/dL (74-106); Potassium 4.5 mmol/L (3.5-5.1); Sodium Level 133 mmol/L (136-145)
--- NOTE | 2020-10-01 07:17 | PCM.PN.HOSP ---
Patient Problems: Active and Suspected Problems (Last Reviewed 09/19/20 @ 09:29 by Mey Holloway PA, PA) Septic arthritis of knee, right (Acute) Subjective: Patient overnight with elevated temperatures but since has normalized. Patient notes right knee discomfort primarily with activity, up and ambulating. He does feel as though effusion is recurring to the right knee. He does report some recurrent decreased range of motion. He notes it is better since outpatient aspiration with orthopedic surgery but again progressively seems to be recurring. Patient denies fevers, chills, nausea, emesis, abdominal pain, chest pain or dyspnea. Objective: Physical Examination: General: awake, alert, oriented x 3 and cooperative, seated upright in the surgical bedside chair, no acute distress. Skin: normal color, turgor, no icterus, cyanosis except noted staged ecchymoses, right knee with bandage in place status post aspiration with no drainage noted. HEENT: AT/NC, EOMI, PERRLA, MMM. Lungs: Diminished breath sounds, greater bases, moderate effort, no rales, ronchi or wheezing. Heart: Regular rate and rhythm; no gallop, rub audible. Abdomen: soft, obese, NTTP, ND, normal BS. Extremities: no cyanosis or clubbing, right knee with some recurrent effusion, some decreased range of motion, no severe tenderness palpation, notes discomfort primarily with bearing weight and walking, similar warmth to bilateral knees. Neurological: patient awake, alert, oriented x 3; cognitive function intact; pupils equally reactive to light and accomodation; cranial nerves II-XII grossly normal, moving all 4 extremities although limited right lower extremity given acute presentation, strength accordingly moderately globally decreased. Psychiatric: affect appears mildly fatigued otherwise normal, no acute evidence of depressive or anxiety feelings. Vitals/I&O's: Vital Signs Temp Pulse Resp BP Pulse Ox 99.0 F 54 L 18 143/81 H 95 10/01/20 02:45 10/01/20 02:45 10/01/20 02:45 10/01/20 02:45 10/01/20 02:45 Oxygen Delivery Method Room Air Weight: 247 lb Body Mass Index (BMI) 35.4 Finger Stick Blood Glucose 196 Intake and Output for Last 24 Hours 09/29/20 09/30/20 10/01/20 23:59 23:59 23:59 Intake Total 835 / 835 1219.75 / 1219.75 Output Total 375 / 375 200 / 200 Balance 460 / 460 1019.75 / 1019.75 Microbiology Past 72 Hours 09/30/20 15:12 Mucosa - Nose SARS-CoV-2 Antigen (Rapid) - Final Laboratory Results 09/30/20 15:20: Sodium 135 L, Potassium 4.8, Chloride 104, Carbon Dioxide 25.0, Anion Gap 6, BUN 29 H, Creatinine 1.38 H, Estim Creat Clear Calc 42.61, Est GFR (MDRD) Af Amer 63, Est GFR (MDRD) Non-Af 52 L, BUN/Creatinine Ratio 21.0 H, Glucose 142 H, Calcium 9.0 09/30/20 15:20: Magnesium 2.7 H 09/30/20 17:22: POC Glucose 151 H 09/30/20 17:28: MRSA (PCR) Negative 09/30/20 21:27: POC Glucose 159 H 10/01/20 06:15: WBC 10.8, RBC 4.02 L, Hgb 12.6 L, Hct 38.7 L, MCV 96.3 H, MCH 31.3, MCHC 32.6 D, RDW Std Deviation 52.7 H, RDW Coeff of Willard 14.9 H, Plt Count 255, MPV 9.7, Immature Gran % (Auto) 0.500, Neut % (Auto) 83.3 H, Lymph % (Auto) 4.7 L, [place] % (Auto) 11.1 H, Eos % (Auto) 0.0, Baso % (Auto) 0.4, Absolute Neuts (auto) 9.0 H, Absolute Lymphs (auto) 0.51 L, Nucleated RBC % 0 10/01/20 06:15: PT 27.8 H, INR 2.6 10/01/20 06:15: Sodium 133 L, Potassium 4.5, Chloride 102, Carbon Dioxide 23.0, Anion Gap 8, BUN 29 H, Creatinine 1.34 H, Estim Creat Clear Calc 43.88, Est GFR (MDRD) Af Amer 66, Est GFR (MDRD) Non-Af 54 L, BUN/Creatinine Ratio 21.6 H, Glucose 142 H, Calcium 8.6, Phosphorus 3.0 10/01/20 06:15: Hemoglobin A1c Pending 10/01/20 06:28: POC Glucose 138 H Current Medications Acetaminophen (Acetaminophen 325 Mg Tablet) 650 mg PO Q6H PRN PRN PRN Reason: Pain Score 1-10/Temp > 100.7 F Al Hydroxide/Mg Hydroxide (Mag Hydrox/Al Hydrox/Simeth 30 Ml Udc) 30 ml PO Q6H PRN PRN PRN Reason: Gastric Burning Albuterol Sulfate (Albuterol 2.5 Mg/3 Ml Vial.Neb.) 2.5 mg INHALATION Q2H PRN PRN PRN Reason: Shortness of Breath/Wheezing Allopurinol (Allopurinol 300 Mg Tablet) 300 mg PO DAILY DENIZ Amlodipine Besylate (Amlodipine 5 Mg Tablet) 5 mg PO DAILY [facility] Dextrose (Dextrose 50%-Water 25 Gm/50 Ml Disp.Syrin) 0 gm IV X1 PRN; Protocol PRN Reason: Hypoglycemia Famotidine (Famotidine 20 Mg Tablet) 20 mg PO BID [facility] Last Admin: 09/30/20 21:32 Dose: 20 mg Documented by: Furosemide (Furosemide 40 Mg Tablet) 40 mg PO 1000,1800 DENIZ Glucagon (Glucagon 1 Mg/Ml Syringe) 1 mg IM .X1 PRN PRN Reason: Hypoglycemia Ampicillin Sodium/Sulbactam (Sodium 3 gm/ Sodium Chloride) 112 mls @ 150 mls/hr IV Q6 DENIZ Last Admin: 10/01/20 06:30 Dose: 150 mls/hr Documented by: Sodium Chloride () 250 mls @ 15 mls/hr IV .[id number] PRN PRN Reason: Saline Flush Last Infusion: 10/01/20 02:11 Dose: 0 mls/hr Documented by: Sodium Chloride () 250 mls @ 15 mls/hr IV .[id number] PRN PRN Reason: Additional IVPB Infusion Insulin Human Lispro (Insulin Lispro 100 Unit/Ml Insuln.Pen) 0 unit SC ACHS [facility]; Protocol Last Admin: 10/01/20 06:30 Dose: Not Given Documented by: Melatonin (Melatonin 3 Mg Tablet) 3 mg PO QHS PRN PRN PRN Reason: INSOMNIA Metoprolol Succinate (Metoprolol(Xl)Succ 100 Mg Tablet) 100 mg PO DAILY [facility] Morphine Sulfate (Morphine 2 Mg/Ml Syringe) 2 mg IV Q3H PRN PRN PRN Reason: Pain Score 6-10 Nitroglycerin (Nitroglycerin (Inpatient Use) 0.4 Mg Tab.Subl) 0.4 mg SUBLINGUAL Q5M PRN PRN Reason: CARDIAC/CHEST PAIN Oxycodone HCl (Oxycodone 5 Mg Tablet) 5 mg PO Q4H PRN PRN PRN Reason: Pain Score 4-5 Potassium Chloride (Potassium Chloride 20 Meq Tablet) 20 meq PO DAILYCM DENIZ Prochlorperazine Edisylate (Prochlorperazine 10 Mg/2 Ml Vial) 5 mg IV Q4H PRN PRN PRN Reason: Breakthrough nausea/vomiting Senna/Docusate Sodium (Senna/Docusate Sodium 1 Tablet) 2 tablet PO BID PRN PRN PRN Reason: Constipation Sodium Chloride (0.9% Saline Lock 10 Ml Syringe) 10 - 40 ml IV UD PRN PRN Reason: SALINE FLUSH Last Admin: 10/01/20 06:30 Dose: 20 ml Documented by: Tolterodine Tartrate (Tolterodine Tartrate 2 Mg Cap.Sa) 2 mg PO DAILY DENIZ Medical Necessity - Tobacco Use Smoking Status: Current every day smoker Tobacco Use: Pipe Assessment/Plan All Active Problems (Last Reviewed 09/19/20 @ 09:29 by Mey JOHNSON, PA) Septic arthritis of knee, right (Acute) Acute hemorrhagic colitis (Resolved) Black tarry stools (Resolved) Rectal bleeding (Resolved) The patient is an 80 y/o M w/ PMHx: CKD stage III, Chronic anemia, PAF on coumadin, Diabetes mellitus type II with neuropathy, Obesity, HTN, HLD, Chronic COPD, Chronic Diastolic CHF, Chronic back pain with stenosis, OA who presents to the [facility] ED on 09/30/[address] Cohen who evaluated him in the office for onset right knee pain, edema x48 hours with at that time no associated fevers or chills with outpatient aspiration with referral to the ED for I&D. 1. Acute right knee septic arthritis: Admission CBC with WBC 10.8 with left shift, elevated temperatures overnight which is since normalized, synovial fluid showed WBC 68,420, 77% neutrophils with no crystals admitted to medical surgical floor, administer vancomycin x1 in the ED, continued currently on Unasyn only with negative MRSA screen, pending cultures from aspiration per orthopedic surgery, orthopedic surgery consulted and following, continue to hold Coumadin with INR trending and will discuss with orthopedic surgery threshold for OR for I&D. As needed pain regimen. As needed antiemetic. Rapid Covid antigen negative. Cultures pending per ED. 2. PAF: We will continue patient home metoprolol regimen, holding Coumadin with INR trending as noted given #1. 3. Diabetes mellitus type II: Hold oral home regimen, ADA diet, accu checks w/ ISS. Hemoglobin A1c obtained and noted to be 6.7%. 4. Chronic Kidney Disease Stage III: Admission BUN/Cr 29/1.38, baseline renal function similar 1.3, continue to trend. 5. Chronic anemia: Admission hemoglobin 12.6, MCV 96.3, has been noted to have been decreased to 10-12 range previously, primarily 13, will continue to trend and assess further if necessary. 6. Chronic diastolic CHF: ED chest x-ray with chronic changes with no acute evidence of overload. We will continue patient metoprolol, Lasix, not on statin nor ANAMARIA inhibitor/ARB, encourage continued outpatient follow-up with cardiology. Holding Coumadin, continue monitoring INR given acute presentation with necessity for I&D. 7. Hypertension: Continue home regimen including metoprolol, Lasix, Norvasc with hold parameters, PRN hydralazine. 8. Hyperlipidemia: Not on statin, encourage outpatient follow-up with cardiology. 9. Obesity: Weight loss and lifestyle changes encouraged. 10. Gout: We will continue patient home allopurinol regimen. 11. DVT prophylaxis: SCDs, continue to trend INR with Coumadin hold for #1. 12. CODE STATUS: DNR CCA, no intubation status. Inpatient E&M: 05462 Subs Hosp L2
[2020-10-01 08:19] LABS: Hemoglobin A1c 6.7 % (3.8-5.6)
[2020-10-01] MEDS: Tolterodine Tartrate 2 MG CAP.SA PO (09:18)
[2020-10-01] MEDS: Furosemide 40 MG Tablet PO (09:18)
[2020-10-01] MEDS: amLODIPine 5 MG Tablet PO (09:18)
[2020-10-01] MEDS: Famotidine 20 MG Tablet PO ×2 (09:18→22:13)
[2020-10-01] MEDS: Metoprolol(XL)Succ 100 MG Tablet PO (09:19)
--- NOTE | 2020-10-01 09:40 | CASEMGMT ---
Social Work Note SW reviewed echart. DPOA and LW are on pt's echart. SW printed off, placed on pt's chart. Halina Levin CHILDREN LIBRARIAN, TELEPHONE REPAIRER
--- NOTE | 2020-10-01 09:45 | CASEMGMT ---
Addendum entered by Karlee Hdez 10/01/20 10:29: Inquired of pt if he would like HHC referral made. He states would like to wait until after I/D to decide and see what is recommended at that time. Also discussed CCN for COPD, CHF, and DM teaching. He states he would like to talk with his first. He was provided with CCN Rac card and made aware, if they decide they would like it, to either let CM know if he is still @ [facility], or they can call CCN once he has returned home. He voices understanding. Original Note: RN CM [employer]ES[employer] SPECIALIST CM to room to meet with patient for initial transition planning/care coordination assessment. RN CM introduced self and role at [facility]. Pt voices understanding and consents to assessment at this time. Pt sitting up in chair in room in no distress at this time. Pt is A/O at this time and answers all questions appropriately. Care providers, pharmacy, and demographics verified/updated at this time. PCP: Dr Man Cha Specialists: Dr Adame Preferred Pharmacy: [facility] Insurance: Where I've Been Prescription Benefit: Yes Living Will/HPOA: Has both LW and Healthcare POA, who is his , Milagro LNOK: , Milagro Living Arrangements:Lives w/his , Milagro, in one-story home w/3 steps to enter, with rails on one side. States assists him w/bathing/dressing. does home mgmt tasks. Pt/ work on medications/appts together. Transportation: Pt states drives self and states no transportation concerns at this time. also drives DME: States has the following DME: cane, walker, W/C, lift chair Pt states no need for further DME at this time. HHC/SNF: No hx of SNF. Has had HHC in the past in 2015 after knee surgery. States he may be interested in HHC. PT eval pending. Pt wishes to return home and states has no concerns with going home at time of discharge. CM to follow for discharge planning/needs. Pt voices no further concerns/needs at this time. Advised pt to ask for CM if any further questions/concerns/needs arise. Voices understanding. PLAN: Home. May be interested in HHC. PT eval pending. Konstantin GUERRIER RN CM
--- NOTE | 2020-10-01 09:58 | CON.PCM_ITS ---
Problem List (1) Septic arthritis of knee, right Status: Acute Reason for Consult: R knee PJI Consulted by: Dr. Chao History of Present Illness: The patient is a 80 year old M with bilat knee replacements several years ago, presented with 2-3 days of R knee pain, swelling. Had been having increased redness of R lower leg for several weeks. No trauma, no cuts, no drainage, no fever. Mild cough, no sick contacts, no change in taste or smell. Had aspiration done, admitted after vanc/zosyn in ED, changed to unasyn. Feeling about the same this Am. Full ROS performed and neg except as noted above. - Medical History Past Medical History (Chronic Problems): Chronic Problems (Last Reviewed 09/19/20 @ 09:29 by Mey JOHNSON, PA) Atrial flutter (Chronic) Hyperlipidemia (Chronic) Essential hypertension (Chronic) Paroxysmal atrial fibrillation (Chronic) COPD (chronic obstructive pulmonary disease) (Chronic) Chronic diastolic heart failure (Chronic) Allergies/Adverse Reactions: Allergies No Known Allergies Allergy (Verified 09/30/20 14:54) Home Medications: Ambulatory Orders Medication Instructions Recorded metFORMIN HCl [Glucophage] 500 mg PO BIDCM 07/23/15 Amlodipine [Norvasc] 5 mg PO DAILY 03/21/18 Metoprolol(XL)Succ [Toprol Xl 100 mg PO DAILY 02/20/19 (Beta Zeina)] allopurinol 300 mg tablet 300 mg PO DAILY 02/27/19 magnesium 250 mg tablet 250 mg PO DAILY 02/28/19 oxybutynin chloride 5 mg 5 mg PO BID tab 07/23/20 tablet,extended release 24 hr furosemide 40 mg tablet 40 mg PO BID tab 09/19/20 potassium chloride 20 mEq 20 meq PO BID tab 09/19/20 tablet,extended release(part/cryst) Vitamin B Complex 1 tab PO DAILY 09/30/20 Warfarin Sodium 2 mg PO DAILY 09/30/20 - Social History Tobacco Use: cigarettes Vital Signs Temp Pulse Resp BP Pulse Ox 98.0 F 74 16 125/83 H 94 10/01/20 08:45 10/01/20 09:19 10/01/20 08:45 10/01/20 08:45 10/01/20 08:45 Oxygen Delivery Method Room Air Weight: 112.037 kg Body Mass Index (BMI) 35.4 Finger Stick Blood Glucose 196 Microbiology Past 72 Hours 02/08/21 15:12 SARS-CoV-2 Antigen (Rapid) - Final Mucosa - Nose Laboratory Tests Past 24 Hrs 09/30/20 09/30/20 09/30/20 15:20 15:20 17:28 WBC RBC Hgb Hct MCV MCH MCHC RDW Std Deviation RDW Coeff of Willard Plt Count MPV Immature Gran % (Auto) Neut % (Auto) Lymph % (Auto) [place] % (Auto) Eos % (Auto) Baso % (Auto) Absolute Neuts (auto) Absolute Lymphs (auto) Nucleated RBC % PT INR Sodium 135 L Potassium 4.8 Chloride 104 Carbon Dioxide 25.0 Anion Gap 6 BUN 29 H Creatinine 1.38 H Estim Creat Clear Calc 42.61 Est GFR (MDRD) Af Amer 63 Est GFR (MDRD) Non-Af 52 L BUN/Creatinine Ratio 21.0 H Glucose 142 H Hemoglobin A1c Calcium 9.0 Phosphorus Magnesium 2.7 H MRSA (PCR) Negative 10/01/20 10/01/20 10/01/20 06:15 06:15 06:15 WBC 10.8 RBC 4.02 L Hgb 12.6 L Hct 38.7 L MCV 96.3 H MCH 31.3 MCHC 32.6 D RDW Std Deviation 52.7 H RDW Coeff of Willard 14.9 H Plt Count 255 MPV 9.7 Immature Gran % (Auto) 0.500 Neut % (Auto) 83.3 H Lymph % (Auto) 4.7 L [place] % (Auto) 11.1 H Eos % (Auto) 0.0 Baso % (Auto) 0.4 Absolute Neuts (auto) 9.0 H Absolute Lymphs (auto) 0.51 L Nucleated RBC % 0 PT 27.8 H INR 2.6 Sodium 133 L Potassium 4.5 Chloride 102 Carbon Dioxide 23.0 Anion Gap 8 BUN 29 H Creatinine 1.34 H Estim Creat Clear Calc 43.88 Est GFR (MDRD) Af Amer 66 Est GFR (MDRD) Non-Af 54 L BUN/Creatinine Ratio 21.6 H Glucose 142 H Hemoglobin A1c Calcium 8.6 Phosphorus 3.0 Magnesium MRSA (PCR) 10/01/20 06:15 WBC RBC Hgb Hct MCV MCH MCHC RDW Std Deviation RDW Coeff of Willard Plt Count MPV Immature Gran % (Auto) Neut % (Auto) Lymph % (Auto) [place] % (Auto) Eos % (Auto) Baso % (Auto) Absolute Neuts (auto) Absolute Lymphs (auto) Nucleated RBC % PT INR Sodium Potassium Chloride Carbon Dioxide Anion Gap BUN Creatinine Estim Creat Clear Calc Est GFR (MDRD) Af Amer Est GFR (MDRD) Non-Af BUN/Creatinine Ratio Glucose Hemoglobin A1c 6.7 H Calcium Phosphorus Magnesium MRSA (PCR) - Other Studies Radiology: [] reviewed Other Studies: [] Route of nutrition/ use of supplements: [] Nutritional Intake: [] IV Site: [] Anne Catheter: [] - Physical Exam General: Alert, Oriented x3, Cooperative, No apparent distress HEENT: Atraumatic, PERRLA, EOMI Neck: Supple, No Nodes Lungs: Clear to auscultation, Normal air movement Cardiovascular: Regular rate, Regular Rhythm Abdomen: Soft, Non Tender, Non-Distended Extremities: Edema Skin: - - bilateral ontiveros erythema IV Site: Peripheral, without redness Musculoskeletal: - - R knee some swelling and warmth Neurological: Cranial nerves II-XII grossly intact - Assessment/Plan Antibiotics: [] Assessment/Plan: [] Active and Suspected Problems (Last Reviewed 09/19/20 @ 09:29 by Mey Holloway PA, PA) Septic arthritis of knee, right (Acute) R knee PJI - aspiration 09/30 with no crystals, wbc over 60k, poly predominant. Cx pending. Will cover with vanc/ceftriaxone for now, OR planned. Will follow, thank you
[2020-10-01 11:45] LABS: Bedside Glucose 174 mg/dL (70-110)
[2020-10-01] MEDS: Insulin Lispro 100 UNIT/ML INSULN.PEN SC ×2 (12:38→17:01)
--- NOTE | 2020-10-01 14:52 | PCM.RX.CS ---
Consult Pharmacy has been consulted to manage selected antiobiotic: Vancomycin Type of Consult: New start Suspected Infection: Other Prior Doses of Antibiotics Received/Current Regimen: the patient received vancomycin 1750mg IV x1 in E.R. yesterday starting at 17:03 Labs: Sodium 133 mmol/L (136-145) L 10/01/20 06:15 Potassium 4.5 mmol/L (3.5-5.1) 10/01/20 06:15 Chloride 102 mmol/L (98-107) 10/01/20 06:15 Carbon Dioxide 23.0 mmol/L (21.0-32.0) 10/01/20 06:15 Anion Gap 8 (5-15) 10/01/20 06:15 BUN 29 mg/dL (7-18) H 10/01/20 06:15 Creatinine 1.34 mg/dL (0.70-1.30) H 10/01/20 06:15 Est GFR (MDRD) Af Amer 66 mL/min (>60) 10/01/20 06:15 Est GFR (MDRD) Non-Af 54 mL/min (>60) L 10/01/20 06:15 BUN/Creatinine Ratio 21.6 RATIO (10-20) H 10/01/20 06:15 Glucose 142 mg/dL (74-106) H 10/01/20 06:15 Microbiology: Microbiology 09/30/20 15:12 Mucosa - Nose SARS-CoV-2 Antigen (Rapid) - Final Weight used for dosin kg Estimated Creatinine Clearance: 53 ml/min Goal Trough: 15-20 mcg/mL Pharmacy Plan for Drug Dosing: The patient received the loading dose of 1750mg in E.R. less than 24 hours ago so will continue on with 1250mg IV q12h. Will check the trough level before the 4th dose of 1250mg. Pharmacy Service will continue to monitor and adjust dosing as required. Follow-Up Labs: Trough Vancomycin Labs to be done on [date and time ordered]: 10/03/20 01:30
--- NOTE | 2020-10-01 16:00 | CON.PCM_ITS ---
Reason for Consult Date of Consultation: 10/01/20 Reason for Consultation: right septic knee arthroplasty History of Present Illness: The patient is a pleasant 80 year old M who had only performed by Dr. Vásquez July 2015. He has not been happy with the knee since but was doing okay and ambulating. Patient reported to my office on 09/30/20 after reporting 24 hours severe right knee pain and swelling denies any injury denies any fevers or chills. He was unable to walk secondary to pain. He denies any recent illnesses. Patient has chronic lower extremity edema with venous stasis very thin skin with multiple varying aged superficial excoriations with scabbing none of which appear to be infected clinically. In the office aspiration was performed demonstrating 68,000 white blood cell count in the synovial fluid with 77% polys. No organisms seen initially but has since grown out Pseudomonas. No uric acid crystals were seen, although history of gout his uric acid was then within the normal range. on 09/30/20 CRP 156 ESR 48 lactic acid 2.3 serum WBC 11.4 she was also sent for Doppler ultrasound which was negative for DVT. She was then directed to the ER for admission has been started on IV antibiotics and his pain is much improved. Past Medical History Past Medical History (Chronic Problems): Chronic Problems (Last Reviewed 09/19/20 @ 09:29 by Mey JOHNSON, PA) Atrial flutter (Chronic) Hyperlipidemia (Chronic) Essential hypertension (Chronic) Paroxysmal atrial fibrillation (Chronic) COPD (chronic obstructive pulmonary disease) (Chronic) Chronic diastolic heart failure (Chronic) Medical History: Medical History (Last Reviewed 09/19/20 @ 09:29 by Mey JOHNSON PA) Atrial flutter (Chronic) I48.92 Hyperlipidemia (Chronic) E78.5 Essential hypertension (Chronic) I10 Paroxysmal atrial fibrillation (Chronic) I48.0 COPD (chronic obstructive pulmonary disease) (Chronic) J44.9 Chronic diastolic heart failure (Chronic) I50.32 Anticoagulated on Coumadin Z79.01 Colon polyps K63.5 Diabetic neuropathy E11.40 Gout M10.9 History of spinal stenosis Z87.39 OAB (overactive bladder) N32.81 Osteoarthritis M19.90 Type 2 diabetes mellitus without complication E11.9 Acute hemorrhagic colitis (Resolved) K52.9 Black tarry stools (Resolved) K92.1 Kidney stones N20.0 Rectal bleeding (Resolved) K62.5 Right rotator cuff tear arthropathy M75.101, M12.811 Allergies No Known Allergies Allergy (Verified 09/30/20 14:54) Home Medications: Ambulatory Orders Medication Instructions Recorded metFORMIN HCl [Glucophage] 500 mg PO BIDCM 07/23/15 Amlodipine [Norvasc] 5 mg PO DAILY 03/21/18 Metoprolol(XL)Succ [Toprol Xl 100 mg PO DAILY 02/20/19 (Beta Zeina)] allopurinol 300 mg tablet 300 mg PO DAILY 02/27/19 magnesium 250 mg tablet 250 mg PO DAILY 02/28/19 oxybutynin chloride 5 mg 5 mg PO BID tab 07/23/20 tablet,extended release 24 hr furosemide 40 mg tablet 40 mg PO BID tab 09/19/20 potassium chloride 20 mEq 20 meq PO BID tab 09/19/20 tablet,extended release(part/cryst) Vitamin B Complex 1 tab PO DAILY 09/30/20 Warfarin Sodium 2 mg PO DAILY 09/30/20 Surgical History: Surgical History (Last Reviewed 09/19/20 @ 09:29 by Mey JOHNSON, PA) History of back surgery Z98.890 History of bilateral knee replacement Z96.653 History of carpal tunnel release of both wrists Z98.890 Hx of shoulder surgery Z98.890 Left Hx of umbilical hernia repair Z98.890, Z87.19 Surgical History: herniorrhaphy, total knee arthroplasty - Bilateral., - - Right wrist fracture, Kidney stones, Bilateral carpal tunnel release, back surgery. Psychiatric History: No pertinent psych hx Smoking Status: Current every day smoker Tobacco Use: Pipe - *Family History Maternal Family History: Family History (Last Reviewed 09/19/20 @ 09:29 by Mey JOHNSON, PA) Brother Diabetes Sister Cancer Grandfather Heart disease Sister Alzheimers disease Sister Parkinson disease History Items: No pertinent history Paternal Family History: Family History (Last Reviewed 09/19/20 @ 09:29 by Mey JOHNSON, PA) Brother Diabetes Sister Cancer Grandfather Heart disease Sister Alzheimers disease Sister Parkinson disease History Items: No pertinent history Sibling Family History: Family History (Last Reviewed 09/19/20 @ 09:29 by Mey JOHNSON, PA) Brother Diabetes Sister Cancer Grandfather Heart disease Sister Alzheimers disease Sister Parkinson disease History Items: Cancer, Diabetes, Heart Disease Patient Problems: Active and Suspected Problems (Last Reviewed 09/19/20 @ 09:29 by Mey JOHNSON, PA) Septic arthritis of knee, right (Acute) - Physical Exam Vitals/I&O's: Vital Signs Temp Pulse Resp BP Pulse Ox 98.0 F 74 16 125/83 H 94 10/01/20 08:45 10/01/20 09:19 10/01/20 08:45 10/01/20 08:45 10/01/20 08:45 Oxygen Delivery Method Room Air Weight: 246 lb 15.989 oz Body Mass Index (BMI) 35.4 Finger Stick Blood Glucose 196 Intake and Output for Last 24 Hours 09/29/20 09/30/20 10/01/20 23:59 23:59 23:59 Intake Total 835 / 835 1441.75 / 1441.75 Output Total 375 / 375 200 / 200 Balance 460 / 460 1241.75 / 1241.75 General: Alert, Cooperative, No apparent distress Extremities: - - Lateral lower extremities with significant lower extremity edema venous stasis dermatitis multiple scabs there is superficial skin tearing of the mid leg as well as of the dorsum of one of the toes. Joint effusion present no erythema about the knee. He is able to extend the knee0-85 Microbiology Past 72 Hours 09/30/20 15:12 Mucosa - Nose SARS-CoV-2 Antigen (Rapid) - Final Laboratory Results 09/30/20 15:20: Magnesium 2.7 H 09/30/20 17:22: POC Glucose 151 H 09/30/20 17:28: MRSA (PCR) Negative 09/30/20 21:27: POC Glucose 159 H 10/01/20 06:15: WBC 10.8, RBC 4.02 L, Hgb 12.6 L, Hct 38.7 L, MCV 96.3 H, MCH 31.3, MCHC 32.6 D, RDW Std Deviation 52.7 H, RDW Coeff of [place]ard 14.9 H, Plt Count 255, MPV 9.7, Immature Gran % (Auto) 0.500, Neut % (Auto) 83.3 H, Lymph % (Auto) 4.7 L, [place] % (Auto) 11.1 H, Eos % (Auto) 0.0, Baso % (Auto) 0.4, Absolute Neuts (auto) 9.0 H, Absolute Lymphs (auto) 0.51 L, Nucleated RBC % 0 10/01/20 06:15: PT 27.8 H, INR 2.6 10/01/20 06:15: Sodium 133 L, Potassium 4.5, Chloride 102, Carbon Dioxide 23.0, Anion Gap 8, BUN 29 H, Creatinine 1.34 H, Estim Creat Clear Calc 43.88, Est GFR (MDRD) Af Amer 66, Est GFR (MDRD) Non-Af 54 L, BUN/Creatinine Ratio 21.6 H, Glucose 142 H, Calcium 8.6, Phosphorus 3.0 10/01/20 06:15: Hemoglobin A1c 6.7 H 10/01/20 06:28: POC Glucose 138 H 10/01/20 11:13: Blood Type O POSITIVE, Antibody Screen NEGATIVE 10/01/20 11:35: POC Glucose 174 H Current Medications Acetaminophen (Acetaminophen 325 Mg Tablet) 650 mg PO Q6H PRN PRN PRN Reason: Pain Score 1-10/Temp > 100.7 F Al Hydroxide/Mg Hydroxide (Mag Hydrox/Al Hydrox/Simeth 30 Ml Udc) 30 ml PO Q6H PRN PRN PRN Reason: Gastric Burning Albuterol Sulfate (Albuterol 2.5 Mg/3 Ml Vial.Neb.) 2.5 mg INHALATION Q2H PRN PRN PRN Reason: Shortness of Breath/Wheezing Allopurinol (Allopurinol 300 Mg Tablet) 300 mg PO QHS [facility] Amlodipine Besylate (Amlodipine 5 Mg Tablet) 5 mg PO DAILY [facility] Last Admin: 10/01/20 09:18 Dose: 5 mg Documented by: Dextrose (Dextrose 50%-Water 25 Gm/50 Ml Disp.Syrin) 0 gm IV X1 PRN; Protocol PRN Reason: Hypoglycemia Famotidine (Famotidine 20 Mg Tablet) 20 mg PO BID [facility] Last Admin: 10/01/20 09:18 Dose: 20 mg Documented by: Furosemide (Furosemide 40 Mg Tablet) 40 mg PO 1000,1800 [facility] Last Admin: 10/01/20 10:37 Dose: Not Given Documented by: Glucagon (Glucagon 1 Mg/Ml Syringe) 1 mg IM .X1 PRN PRN Reason: Hypoglycemia Hydralazine HCl (Hydralazine 20 Mg/Ml Vial) 10 mg IV Q4H PRN PRN PRN Reason: SBP > 160 Sodium Chloride () 250 mls @ 15 mls/hr IV .[id number] PRN PRN Reason: Saline Flush Last Admin: 10/01/20 14:36 Dose: 15 mls/hr Documented by: Sodium Chloride () 250 mls @ 15 mls/hr IV .[id number] PRN PRN Reason: Additional IVPB Infusion Vancomycin IV Pharmacy to Dose (1 ea/ Sodium Chloride) 500 mls @ 250 mls/hr IV X1 PRN; Protocol PRN Reason: Rx to Dose Ceftriaxone Sodium 2 gm/ (Sodium Chloride) 50 mls @ 100 mls/hr IV Q24 [facility] Last Admin: 10/01/20 12:39 Dose: 100 mls/hr Documented by: Vancomycin HCl 1,250 mg/ (Sodium Chloride) 275 mls @ 167 mls/hr IV Q12H [facility] Last Admin: 10/01/20 14:35 Dose: 167 mls/hr Documented by: Insulin Human Lispro (Insulin Lispro 100 Unit/Ml Insuln.Pen) 0 unit SC ACHS [facility]; Protocol Last Admin: 10/01/20 12:38 Dose: 2 u Documented by: Melatonin (Melatonin 3 Mg Tablet) 3 mg PO QHS PRN PRN PRN Reason: INSOMNIA Metoprolol Succinate (Metoprolol(Xl)Succ 100 Mg Tablet) 100 mg PO DAILY [facility] Last Admin: 10/01/20 09:19 Dose: 100 mg Documented by: Morphine Sulfate (Morphine 2 Mg/Ml Syringe) 2 mg IV Q3H PRN PRN PRN Reason: Pain Score 6-10 Nitroglycerin (Nitroglycerin (Inpatient Use) 0.4 Mg Tab.Subl) 0.4 mg SUBLINGUAL Q5M PRN PRN Reason: CARDIAC/CHEST PAIN Oxycodone HCl (Oxycodone 5 Mg Tablet) 5 mg PO Q4H PRN PRN PRN Reason: Pain Score 4-5 Potassium Chloride ([facility] 20 [facility]t) [facility] Last Admin: 10/01/20 09:18 Dose: 20 meq Documented by: Prochlorperazine Edisylate (Prochlorperazine 10 Mg/2 Ml Vial) 5 mg IV Q4H PRN PRN PRN Reason: Breakthrough nausea/vomiting Senna/Docusate Sodium (Senna/Docusate Sodium 1 Tablet) 2 tablet PO BID PRN PRN PRN Reason: Constipation Sodium Chloride (0.9% Saline Lock 10 Ml Syringe) 10 - 40 ml IV UD PRN PRN Reason: SALINE FLUSH Last Admin: 10/01/20 06:30 Dose: 20 ml Documented by: Tolterodine Tartrate (Tolterodine Tartrate 2 Mg Cap.Sa) 2 mg PO DAILY [facility] Last Admin: 10/01/20 09:18 Dose: 2 mg Documented by: Assessment/Plan All Active Problems (Last Reviewed 09/19/20 @ 09:29 by Mey Holloway PA, PA) Septic arthritis of knee, right (Acute) Acute hemorrhagic colitis (Resolved) Black tarry stools (Resolved) Rectal bleeding (Resolved) Right knee septic total joint Plan for OR for irrigation debridement and polyethylene exchange On Coumadin currently receiving vitamin K discussed with hospitalist who will order FFP in a.m. concern with multiple doses considering heart failure We will proceed if INR 1.5 or less tomorrow Patient will need PICC line and IV antibiotics for 6 weeks Appreciate infectious disease antibiotic management
[2020-10-01 17:11] LABS: Bedside Glucose 152 mg/dL (70-110)
[2020-10-01] MEDS: Allopurinol 300 MG Tablet PO (22:13)
[2020-10-01 22:31] LABS: Bedside Glucose 131 mg/dL (70-110)
[2020-10-02] VITALS (20 sets, daily range): BP systolic 107–142; BP diastolic 71–90; PULSE 52–104; RESP 15–24; TEMP 36.3–36.8; O2SAT 92–98; BMI 34.7
--- NOTE | 2020-10-02 03:04 | NURSING ---
Called blood bank and talked to [facility] to make sure that they were aware we would need the FFP ready at 0600 for this pt.
[2020-10-02 05:03] LABS: Absolute Lymphocyte Count 0.78 X10^3/uL (0.83-4.51); Absolute Neutrophil Count 8.9 X10^3/uL (2.0-7.7); Basophil# 0.06 X10^3/uL; Basophil% 0.5 % (0-1); Eosinophil# 0.04 X10^3/uL; Eosinophils% 0.4 % (0-5); Hematocrit 41.3 % (40-54); Hemoglobin 13.2 g/dL (13.0-16.5); Lymphocyte # 0.78 X10^3/ul (4.0); Mean Corpuscular Hgb 31.5 pg (27.0-32.0); Mean Corpuscular Volume 98.6 fL (80-94); Mean Platelet Vol. 9.6 fl (6.2-12.0); Monocyte# 1.34 X10^3/uL; Monocyte% 12.1 % (0-10); NRBC Flagged by Analyzer 0 % (0-5); Neutrophil # 8.85 X10^3/uL (2.7-7.7); Neutrophil % 79.6 % (47-70); Platelet Count 258 K/mm3 (150-450); RBC Distribution Width CV 14.8 % (11.6-14.6); RBC Distribution Width SD 54.3 fl (35.1-43.9); Red Blood Count 4.19 M/mm3 (4.6-6.2); White Blood Count 11.1 K/mm3 (4.4-11.0)
[2020-10-02 05:15] LABS: International Normalized Ratio 1.5; Prothrombin Time (Protime)PT. 17.5 SECONDS (11.7-14.9)
[2020-10-02 05:25] LABS: ALB/GLOB Ratio 0.7 RATIO (0.9-2.4); AST(SGOT) 34 U/L (15-37); Alanine Aminotransfer ALT/SGPT 36 U/L (16-61); Albumin, Serum 2.9 g/dL (3.2-5.0); Alkaline Phosphatase 143 U/L (45-117); Anion Gap 6 (5-15); BUN 31 mg/dL (7-18); BUN/Creat Ratio 22.3 RATIO (10-20); Calcium,Total 8.3 mg/dL (8.5-10.1); Chloride 103 mmol/L (98-107); Creatinine, Serum 1.39 mg/dL (0.70-1.30); EST Glomerular Filtration Rate 52 mL/min (>60); Est Glom Filt Rate - Afr Amer 63 mL/min (>60); Estimated Creatinine Clearance 42.31 ml/min; Globulin 4.1 g/dL (2.2-4.2); Glucose 168 mg/dL (74-106); Potassium 3.8 mmol/L (3.5-5.1); Sodium Level 132 mmol/L (136-145)
[2020-10-02] MEDS: Insulin Lispro 100 UNIT/ML INSULN.PEN SC (06:43)
[2020-10-02] MEDS: 0.9% Saline Lock 10 ML Syringe IV (06:43)
[2020-10-02 06:51] LABS: Bedside Glucose 155 mg/dL (70-110)
--- NOTE | 2020-10-02 07:10 | PN_ITS ---
Patient Problems: Active and Suspected Problems (Last Reviewed 09/19/20 @ 09:29 by Mey JOHNSON, PA) Septic arthritis of knee, right (Acute) Subjective: Patient still noting R knee pain, but again primarily with ambulation. Upon evaluation seated upright in the bedside chair noting he slept in that position which is what he does at home, sleeps upright in a chair and not in his bed. Discussed frankly that this is likely contributing to his lower extremity stasis disease. Patient is amenable to temporary IV Lasix given significant lower extremity stasis with edema and some stasis ulcers, wound RN consultation and Sabino wraps. Patient denies any current shortness of breath given FFP administration this morning and is aware for planned OR at noon. Patient denies fevers, chills, nausea, emesis, abdominal pain, chest pain or dyspnea. Objective: Physical Examination: General: awake, alert, oriented x 3 and cooperative, seated upright in the surgical bedside chair which he notes he slept in, no acute distress. Skin: normal color, turgor, no icterus, cyanosis except noted staged ecchymoses, right knee with bandage in place status post aspiration with no drainage noted, BL LE stasis disease with stasis ulcers, pitting edema which is chronic. HEENT: AT/NC, EOMI, PERRLA, MMM. Lungs: Diminished breath sounds, greater bases, moderate effort, no rales, ronchi or wheezing. Heart: Regular rate and rhythm; no gallop, rub audible. Abdomen: soft, obese, NTTP, ND, normal BS. Extremities: no cyanosis or clubbing, right knee with some recurrent effusion, some decreased range of motion, no severe tenderness palpation, notes discomfort primarily with bearing weight and walking, similar warmth to bilateral knees, BL LE stasis disease with stasis ulcers, pitting edema which is chronic. Neurological: patient awake, alert, oriented x 3; cognitive function intact; pupils equally reactive to light and accomodation; cranial nerves II-XII grossly normal, moving all 4 extremities although limited right lower extremity given acute presentation, strength accordingly moderately globally decreased. Psychiatric: affect appears normal, no acute evidence of depressive or anxiety feelings. Vitals/I&O's: Vital Signs Temp Pulse Resp BP Pulse Ox 97.5 F L 76 18 130/86 H 95 10/02/20 06:10 10/02/20 06:10 10/02/20 06:10 10/02/20 06:10 10/02/20 06:10 Oxygen Delivery Method Room Air Weight: 246 lb 15.989 oz Body Mass Index (BMI) 35.4 Finger Stick Blood Glucose 196 Intake and Output for Last 24 Hours 09/30/20 10/01/20 10/02/20 23:59 23:59 23:59 Intake Total 835 / 835 3327.25 / 3327.25 725 / 725 Output Total 375 / 375 275 / 275 500 / 500 Balance 460 / 460 3052.25 / 3052.25 225 / 225 Microbiology Past 72 Hours 09/30/20 15:12 Mucosa - Nose SARS-CoV-2 Antigen (Rapid) - Final Laboratory Results 10/01/20 06:15: Hemoglobin A1c 6.7 H 10/01/20 11:13: Blood Type O POSITIVE, Antibody Screen NEGATIVE 10/01/20 11:35: POC Glucose 174 H 10/01/20 16:59: POC Glucose 152 H 10/01/20 22:06: POC Glucose 131 H 10/02/20 04:58: WBC 11.1 H, RBC 4.19 L, Hgb 13.2, Hct 41.3, MCV 98.6 H, MCH 31.5, MCHC 32.0, RDW Std Deviation 54.3 H, RDW Coeff of [place] 14.8 H, Plt Count 258, MPV 9.6, Immature Gran % (Auto) 0.400, Neut % (Auto) 79.6 H, Lymph % (Auto) 7.0 L, [place] % (Auto) 12.1 H, Eos % (Auto) 0.4, Baso % (Auto) 0.5, Absolute Neuts (auto) 8.9 H, Absolute Lymphs (auto) 0.78 L, Nucleated RBC % 0 10/02/20 04:58: PT 17.5 H, INR 1.5 10/02/20 04:58: Sodium 132 L, Potassium 3.8, Chloride 103, Carbon Dioxide 23.0, Anion Gap 6, BUN 31 H, Creatinine 1.39 H, Estim Creat Clear Calc 42.31, Est GFR (MDRD) Af Amer 63, Est GFR (MDRD) Non-Af 52 L, BUN/Creatinine Ratio 22.3 H, Glucose 168 H, Calcium 8.3 L, Total Bilirubin 2.40 H, AST 34, ALT 36, Alkaline Phosphatase 143 H, Total Protein 7.0, Albumin 2.9 L, Globulin 4.1, Albumin/Globulin Ratio 0.7 L 10/02/20 06:41: POC Glucose 155 H Current Medications Acetaminophen (Acetaminophen 325 Mg Tablet) 650 mg PO Q6H PRN PRN PRN Reason: Pain Score 1-10/Temp > 100.7 F Al Hydroxide/Mg Hydroxide (Mag Hydrox/Al Hydrox/Simeth 30 Ml Udc) 30 ml PO Q6H PRN PRN PRN Reason: Gastric Burning Albuterol Sulfate (Albuterol 2.5 Mg/3 Ml Vial.Neb.) 2.5 mg INHALATION Q2H PRN PRN PRN Reason: Shortness of Breath/Wheezing Allopurinol (Allopurinol 300 Mg Tablet) 300 mg PO QHS [facility] Last Admin: 10/01/20 22:13 Dose: 300 mg Documented by: Amlodipine Besylate (Amlodipine 5 Mg Tablet) 5 mg PO DAILY [facility] Last Admin: 10/01/20 09:18 Dose: 5 mg Documented by: Dextrose (Dextrose 50%-Water 25 Gm/50 Ml Disp.Syrin) 0 gm IV X1 PRN; Protocol PRN Reason: Hypoglycemia Famotidine (Famotidine 20 Mg Tablet) 20 mg PO BID [facility] Last Admin: 10/01/20 22:13 Dose: 20 mg Documented by: Furosemide (Furosemide 40 Mg Tablet) 40 mg PO 1000,1800 [facility] Last Admin: 10/01/20 10:37 Dose: Not Given Documented by: Glucagon (Glucagon 1 Mg/Ml Syringe) 1 mg IM .X1 PRN PRN Reason: Hypoglycemia Hydralazine HCl (Hydralazine 20 Mg/Ml Vial) 10 mg IV Q4H PRN PRN PRN Reason: SBP > 160 Sodium Chloride () 250 mls @ 15 mls/hr IV .[id number] PRN PRN Reason: Saline Flush Last Infusion: 10/02/20 06:03 Dose: 0 mls/hr Documented by: Sodium Chloride () 250 mls @ 15 mls/hr IV .[id number] PRN PRN Reason: Additional IVPB Infusion Vancomycin IV Pharmacy to Dose (1 ea/ Sodium Chloride) 500 mls @ 250 mls/hr IV X1 PRN; Protocol PRN Reason: Rx to Dose Ceftriaxone Sodium 2 gm/ (Sodium Chloride) 50 mls @ 100 mls/hr IV Q24 [facility] Last Infusion: 10/01/20 13:09 Dose: Infused Documented by: Vancomycin HCl 1,250 mg/ (Sodium Chloride) 275 mls @ 167 mls/hr IV Q12H [facility] Last Infusion: 10/02/20 03:49 Dose: Infused Documented by: Insulin Human Lispro (Insulin Lispro 100 Unit/Ml Insuln.Pen) 0 unit SC ACHS [facility]; Protocol Last Admin: 10/02/20 06:43 Dose: 2 u Documented by: Melatonin (Melatonin 3 Mg Tablet) 3 mg PO QHS PRN PRN PRN Reason: INSOMNIA Metoprolol Succinate (Metoprolol(Xl)Succ 100 Mg Tablet) 100 mg PO DAILY [facility] Last Admin: 10/01/20 09:19 Dose: 100 mg Documented by: Morphine Sulfate (Morphine 2 Mg/Ml Syringe) 2 mg IV Q3H PRN PRN PRN Reason: Pain Score 6-10 Nitroglycerin (Nitroglycerin (Inpatient Use) 0.4 Mg Tab.Subl) 0.4 mg SUBLINGUAL Q5M PRN PRN Reason: CARDIAC/CHEST PAIN Oxycodone HCl (Oxycodone 5 Mg Tablet) 5 mg PO Q4H PRN PRN PRN Reason: Pain Score 4-5 Potassium Chloride (Pot[facility] Ch[facility] 20 [facility]) [facility] Last Admin: 10/01/20 09:18 Dose: 20 meq Documented by: Prochlorperazine Edisylate (Prochlorperazine 10 Mg/2 Ml Vial) 5 mg IV Q4H PRN PRN PRN Reason: Breakthrough nausea/vomiting Senna/Docusate Sodium (Senna/Docusate Sodium 1 Tablet) 2 tablet PO BID PRN PRN PRN Reason: Constipation Sodium Chloride (0.9% Saline Lock 10 Ml Syringe) 10 - 40 ml IV UD PRN PRN Reason: SALINE FLUSH Last Admin: 10/02/20 06:43 Dose: 10 ml Documented by: Tolterodine Tartrate (Tolterodine Tartrate 2 Mg Cap.Sa) 2 mg PO DAILY [facility] Last Admin: 10/01/20 09:18 Dose: 2 mg Documented by: STROKE Vital Signs/Narrative: Vital Signs Temp Pulse Resp BP Pulse Ox 10/02/20 06:10 97.5 F L 76 18 130/86 H 95 10/02/20 05:55 97.4 F L 83 18 123/87 H 96 Medical Necessity - Tobacco Use Smoking Status: Current every day smoker Tobacco Use: Pipe Assessment/Plan All Active Problems (Last Reviewed 09/19/20 @ 09:29 by Mey Holloway PA, PA) Septic arthritis of knee, right (Acute) Acute hemorrhagic colitis (Resolved) Black tarry stools (Resolved) Rectal bleeding (Resolved) The patient is an 80 y/o M w/ PMHx: CKD stage III, Chronic anemia, PAF on coumadin, Diabetes mellitus type II with neuropathy, Obesity, HTN, HLD, Chronic COPD, Chronic Diastolic CHF, Chronic back pain with stenosis, OA who presents to the [facility] ED on 09/30/[address] Cohen who evaluated him in the office for onset right knee pain, edema x48 hours with at that time no associated fevers or chills with outpatient aspiration with referral to the ED for I&D. 1. Acute right knee septic arthritis: Admission CBC with WBC 10.8 with left shift, elevated temperatures overnight which is since normalized, synovial fluid showed WBC 68,420, 77% neutrophils with no crystals. Patient admitted to medical surgical floor, administered vancomycin x1 in the ED, continued on Unasyn only with negative MRSA screen, pending cultures from aspiration per orthopedic surgery, orthopedic surgery consulted and following, coumadin held with per Orthopedic surgery discussions administration 10/01/20 vitamin K 5 mg and 10/02/20 6 am administration FFP x 1 pack with follow-up INR 1.5. Planned OR 10/02/20 noon. Will restart coumadin once Surgery amenable. Rapid Covid antigen negative. Bld Cultures pending per ED. Awaiting synovial cultures concurrently. Expect repeat cultures from OR. 2. Chronic BL LE Stasis Disease with stasis ulcers: Educated patient on sleepin g upright in a chair routinely, will elevated BL LE, place snug SABINO wraps and dose with IV lasix 40 mg x 3 doses and then transition back to his oral home regimen. 3. PAF: Patient coumadin held with per Orthopedic surgery discussions administration 10/01/20 vitamin K 5 mg and 10/02/20 6 am administration FFP x 1 pack with follow-up INR 1.5. Continued home metoprolol. 4. Diabetes mellitus type II: Hold oral home regimen, ADA diet, accu checks w/ ISS. Hemoglobin A1c obtained and noted to be 6.7%. 5. Chronic Kidney Disease Stage III: Admission BUN/Cr 29/1.38, baseline renal function similar 1.3, 10/02/20 BUN/Cr 31/1.39. 6. Chronic anemia: Admission hemoglobin 12.6, MCV 96.3, has been noted to have been decreased to 10-12 range previously, primarily 13, 10/02/20 Hgb 13.2. 7. Chronic diastolic CHF: ED chest x-ray with chronic changes with no acute evidence of overload. We will continue patient metoprolol, Lasix, not on statin nor SABINO inhibitor/ARB, encourage continued outpatient follow-up with cardiology Holding Coumadin with reversal as noted, add back once permitted. 8. Hypertension: Continue home regimen including metoprolol, Lasix, Norvasc with hold parameters, PRN hydralazine. 9. Hyperlipidemia: Not on statin, encourage outpatient follow-up with cardiology. 10. Obesity: Weight loss and lifestyle changes encouraged. 12. Gout: We will continue patient home allopurinol regimen. 13. DVT prophylaxis: SCDs, 10/02/20 INR 1.5, as noted plan restart coumadin once cleared per Orthopedic surgery. 14. CODE STATUS: DNR CCA, no intubation status. Inpatient E&M: 67246 Subs Hosp L2
[2020-10-02] MEDS: amLODIPine 5 MG Tablet PO (08:06)
[2020-10-02] MEDS: Famotidine 20 MG Tablet PO ×2 (08:06→22:15)
[2020-10-02] MEDS: Metoprolol(XL)Succ 100 MG Tablet PO (08:06)
[2020-10-02] MEDS: Tolterodine Tartrate 2 MG CAP.SA PO (08:06)
[2020-10-02] MEDS: Furosemide 40 MG Tablet PO (08:11)
[2020-10-02] MEDS: Furosemide 40 MG/4 ML Vial IV ×2 (09:33→18:40)
[2020-10-02 11:10] LABS: Bedside Glucose 108 mg/dL (70-110)
--- NOTE | 2020-10-02 12:30 | SYN_PTH ---
PATIENT: PANDA MARCELO LOC: MS3 U#:[id number] AGE/SX: 80/M ROOM: AR312 RE09/30/[address]: Dr. Wen Zimmer MD : [id number] BED: 1 DIS: 10/04/2020 SPEC #: [id number] RECD: 10/03/20 07:36 STATUS: SOTO REMartha #: [id number] MONY: 10/02/20 12:[address]: Arik Cohen DEPT: SURGICAL PATHOLOGY RECD BY: Muriel Ledezma ENTERED: 10/03/20 08:45 SP TYPE: SYNOVIUM OTHR DR: MD Dr. Arik Shaver DO Dr. Prakash Chand, MD Dr. Robert Leininger, MD Dr. Scott Hannan, MD Tissues: Synovial tissue of joint, NOS Procedures: Decalcification bone/plaque Surgery Specimen Level III Comments: @ Ordering doctor for SUIV edited from to @ by INEZ at 10/03/20 1253 @ Submitting doctor edited from to @ by RGOOD at 10/03/20 1253 HEADER OPERATION: Open knee poly exchange, I & D PRE-OP DIAGNOSIS: Septic arthritis of right knee TISSUE SUBMITTED: Synovial tissue right knee MICROSCOPIC DIAGNOSIS Right knee synovium, biopsy: Acute synovitis. Minute fragments of bone with fatty marrow and reactive change. AM:marita 10/07/2020 MICROSCOPIC DESCRIPTION Slides are reviewed. GROSS DESCRIPTION Received in fixative is one container labeled with the patient's name and designated synovial tissue right knee. The specimen consists of four variable sized pieces of soft tissue measuring 9 x 5 x 2 cm. A possible bone is also noted. No mass lesion is identified. News Camera Operator sections are submitted in four cassettes. Cassette 4 is submitted after decalcification. / SJ:marita 10/03/20 TC:2 CPT: 87897, 93926
--- NOTE | 2020-10-02 14:55 | PCM.OPRPT ---
Report of Operation Date of Procedure: 10/02/20 Description of Surgical Findings:: Preoperative diagnosis: Septic right total knee arthroplasty Postoperative diagnosis: Same Procedure: Irrigation and debridement with polyethylene exchange Anesthesia: General EBL: 250 Complications: None Specimen: Synovial tissue culture x2, pathology specimen synovial Condition: Stable to PACU Tourniquet time 0 minutes Indication for procedure: Pleasant 80-year-old male previously had total knee arthroplasty by another surgeon 2014 patient with chronic heart failure and chronic lower extremity swelling with very thin skin multiple excoriations with scabbing on his legs developed acute onset swelling and pain in the right knee on 09/30/2020 he had no prodromal symptoms no fevers chills he did present to my office on 10/01/2020, aspiration was performed and indicative of septic joint, initial culture grew Pseudomonas, patient admitted on Coumadin given vitamin K INR down to 1.5 morning of surgery risk benefits and alternatives were reviewed including risk of bleeding infection nerve, artery, bone, tissue damage, blood clot need for further surgery and continued pain. Procedure: Patient met in the preoperative holding area once again the operative extremity was then 5 by both patient and physician was marked patient was met by anesthesia and IV was started and he was brought back to the operating on a wheeled cart and transferred to the operating table in the supine position. Anesthesia was started. A well-padded tourniquet was placed on the right upper thigh but was not inflated during the procedure. Patient was prepped with a scrub Betadine and paint as there was multiple skin tears in the right lower extremity. He was draped in the usual sterile fashion a timeout was called to ensure the proper patient procedure and extremity were being contemplated. His previous incision was marked and was used extended slightly proximally for exposure full-thickness flaps were made with the use of a scalpel and electrocautery with careful soft tissue handling. A medial parapatellar arthrotomy was performed and immediately there was noted to be a gush of cloudy seropurulent fluid. The knee was brought to extension and radical synovectomy was performed synovial tissue was sent for cultures 2 separate specimens were sent in addition to a specimen for pathology. Quadriceps snip was performed to allow for complete access to remove the synovium and poly-, several liters of Pulsavac irrigation were used. An osteotome was used to remove the polyethylene component. Posterior capsule was debrided of synovium with a rongeur and a curette. There was a significant amount of synovial hypertrophy in the suprapatellar pouch. The medial and lateral gutters were evacuated. Electro cautery and aqua mantis were used for hemostasis. A undiluted Betadine lavage was allowed to sit within the knee and was rubbed into all of the soft tissue for 5 minutes following this several liters of sterile irrigant were used to flush the knee. An Aricept rinse was then used followed by several more liters of irrigation followed by the insertion of the appropriate size polyethylene spacer, which according to the operative report was a size 6 13mm however the undersurface surface of the polyethylene red a size 16mm, we did trial with a 13 and a 16 and 16 provided the appropriate stability with full extension. followed by several more liters of irrigation and Aricept rinse. The joint capsule was closed with #1 Prolene vertical mattresses. The quadriceps snip was repaired with #2 Prolene. Skin and subcutaneous tissue were closed with 2-0 Prolene vertical mattress. There was skin sloughing at the area where the Mepilex Ag adherent would be applied therefore a Mepilex plain was placed over this area and the Mepilex Ag was then placed over the incision overlapping this underlying dressing. A thigh-high ALBERTO hose was placed over top. There was noted to be fracture blistering before and after the case. Pulses remain present postoperatively. All counts were correct and patient was brought back to the PACU in stable condition he will start strict elevation immediately. And her standard protocol for recovery of a total knee. IV antibiotics will be continued.
[2020-10-02] MEDS: Lactated Ringers 1,000 ML 100 ML IV ×2 (15:39→15:41)
[2020-10-02 16:42] LABS: CRYSTALS, BODY FLUID See PATH REV
[2020-10-02 16:43] LABS: Body Fluid QC Type(s) BF1Q; Source- Body Fluid OTHER
[2020-10-02 16:45] LABS: Bedside Glucose 109 mg/dL (70-110)
[2020-10-02 16:50] LABS: Bedside Glucose 140 mg/dL (70-110)
[2020-10-02] MEDS: Albuterol 2.5 MG/3 ML VIAL.NEB. INHALATION (19:04)
[2020-10-02] MEDS: Acetaminophen 325 MG Tablet 650 MG PO (21:14)
[2020-10-02] MEDS: Allopurinol 300 MG Tablet PO (22:15)
[2020-10-02 22:26] LABS: Bedside Glucose 114 mg/dL (70-110)
--- NOTE | 2020-10-02 22:42 | NURSING ---
2230 dressing to rt knee had drainage on 3 sides and was starting to seep from the edges onto pts skin. skin cleaned and dressing replaced with another AG mepilex. pt tolerated well
[2020-10-03] VITALS (10 sets, daily range): BP systolic 118–128; BP diastolic 77–80; PULSE 72–85; RESP 12–20; TEMP 36.4–37.1; O2SAT 91–98; BMI 34.7
[2020-10-03 01:29] LABS: Absolute Lymphocyte Count 0.71 X10^3/uL (0.83-4.51); Absolute Neutrophil Count 10.1 X10^3/uL (2.0-7.7); Basophil# 0.05 X10^3/uL; Basophil% 0.4 % (0-1); Eosinophil# 0.01 X10^3/uL; Eosinophils% 0.1 % (0-5); Hematocrit 36.8 % (40-54); Lymphocyte # 0.71 X10^3/ul (4.0); Lymphocyte % 5.8 % (19-41); Mean Corp Hgb Conc 32.6 g/dL (32-36); Mean Corpuscular Hgb 31.4 pg (27.0-32.0); Mean Corpuscular Volume 96.3 fL (80-94); Mean Platelet Vol. 9.4 fl (6.2-12.0); Monocyte# 1.28 X10^3/uL; Monocyte% 10.5 % (0-10); NRBC Flagged by Analyzer 0 % (0-5); Neutrophil # 10.08 X10^3/uL (2.7-7.7); Neutrophil % 82.4 % (47-70); Platelet Count 274 K/mm3 (150-450); RBC Distribution Width CV 14.6 % (11.6-14.6); RBC Distribution Width SD 51.5 fl (35.1-43.9); Red Blood Count 3.82 M/mm3 (4.6-6.2); White Blood Count 12.2 K/mm3 (4.4-11.0)
[2020-10-03 01:37] LABS: International Normalized Ratio 1.5; Prothrombin Time (Protime)PT. 17.5 SECONDS (11.7-14.9)
[2020-10-03 01:46] LABS: ALB/GLOB Ratio 0.7 RATIO (0.9-2.4); AST(SGOT) 33 U/L (15-37); Alanine Aminotransfer ALT/SGPT 36 U/L (16-61); Albumin, Serum 2.7 g/dL (3.2-5.0); Alkaline Phosphatase 121 U/L (45-117); Anion Gap 6 (5-15); BUN 32 mg/dL (7-18); BUN/Creat Ratio 20.4 RATIO (10-20); Calcium,Total 8.1 mg/dL (8.5-10.1); Chloride 103 mmol/L (98-107); Creatinine, Serum 1.57 mg/dL (0.70-1.30); EST Glomerular Filtration Rate 45 mL/min (>60); Est Glom Filt Rate - Afr Amer 55 mL/min (>60); Estimated Creatinine Clearance 37.46 ml/min; Globulin 3.8 g/dL (2.2-4.2); Glucose 133 mg/dL (74-106); Potassium 3.9 mmol/L (3.5-5.1); Protein, Total 6.5 g/dL (6.4-8.2); Sodium Level 135 mmol/L (136-145)
--- NOTE | 2020-10-03 02:18 | PCM.RX.CS ---
Consult Pharmacy has been consulted to manage selected antiobiotic: Vancomycin Type of Consult: Follow-up Labs: Sodium 135 mmol/L (136-145) L 10/03/20 01:22 Potassium 3.9 mmol/L (3.5-5.1) 10/03/20 01:22 Chloride 103 mmol/L (98-107) 10/03/20 01:22 Carbon Dioxide 26.0 mmol/L (21.0-32.0) 10/03/20 01:22 Anion Gap 6 (5-15) 10/03/20 01:22 BUN 32 mg/dL (7-18) H 10/03/20 01:22 Creatinine 1.57 mg/dL (0.70-1.30) H 10/03/20 01:22 Est GFR (MDRD) Af Amer 55 mL/min (>60) L 10/03/20 01:22 Est GFR (MDRD) Non-Af 45 mL/min (>60) L 10/03/20 01:22 BUN/Creatinine Ratio 20.4 RATIO (10-20) H 10/03/20 01:22 Glucose 133 mg/dL (74-106) H 10/03/20 01:22 Vancomycin Trough 23.0 ug/mL (5.0-15.0) H 10/03/20 01:22 Microbiology: Microbiology 09/30/20 15:20 Blood Culture (Wb) - Left Hand Blood Culture - Preliminary No growth in 48 hours. 09/30/20 15:12 Mucosa - Nose SARS-CoV-2 Antigen (Rapid) - Final Goal Trough: 15-20 mcg/mL Pharmacy Plan for Drug Dosing: Pharmacy Service will continue to monitor and adjust dosing as required. LAST DOSE GIVEN 3 HOURS LATE DUE TO SURGERY, RUN THIIS DOSE AND REDRAW TROUGH BEFORE NEXT DOSE Follow-Up Labs: Trough Vancomycin Labs to be done on [date and time ordered]: 10/03 @ 5450
--- NOTE | 2020-10-03 02:21 | NURSING ---
0215 second mepilex dressing is now having breakthrough sang drainage. reinforced with 2 ABD pads and snug ANAMARIA wraps applied. sandbag applied on top of dressing. will cont to monitor. vitals are stable
[2020-10-03] MEDS: Lactated Ringers 1,000 ML 100 ML IV (02:29)
[2020-10-03] MEDS: Acetaminophen 325 MG Tablet 650 MG PO (05:44)
[2020-10-03 06:45] LABS: Bedside Glucose 124 mg/dL (70-110)
--- NOTE | 2020-10-03 07:50 | PN_ITS ---
Patient Problems: Active and Suspected Problems (Last Reviewed 09/19/20 @ 09:29 by Mey JOHNSON, PA) Septic arthritis of knee, right (Acute) Subjective: Patient overnight with bleeding postoperatively with dressing reinforcement required with placement of snug wrapping per orthopedic surgery request. Patient today with agreement to consideration TCU, PICC line also requested as patient will need prolonged antibiotic therapy. Patient still having notable discomfort to the right knee but primarily with ambulatory effort. Patient notes his swelling to the left lower extremity has improved and somewhat to his right but still sleeping upright in the chair with his legs lowered. Patient also with ALBERTO hose on instead of snug Sabino wraps. Patient denies fevers, chills, nausea, emesis, abdominal pain, chest pain or dyspnea. Objective: Physical Examination: General: awake, alert, oriented x 3 and cooperative, seated upright in the surgical bedside chair, again strongly encouraged him not to sleep in the chair, notes discomfort to the right knee is lessened since the OR but still discomfort with ambulatory effort. Skin: normal color, turgor, no icterus, cyanosis except noted staged ecchymoses, right knee with bandage in place status post aspiration with drainage noted with bleeding postoperatively, reinforce dressing in place, bilateral lower extremity with improved edema, left significantly more so than right, currently in ALBERTO hose not on sabino wraps, stasis ulcers with some drainage but improving. HEENT: AT/NC, EOMI, PERRLA, MMM. Lungs: Diminished breath sounds, greater bases, moderate effort, no rales, ronchi or wheezing. Heart: Regular rate and rhythm; no gallop, rub audible. Abdomen: soft, obese, NTTP, ND, normal BS. Extremities: no cyanosis or clubbing, right knee with some recurrent effusion, some decreased range of motion, no severe tenderness palpation, notes discomfort primarily with bearing weight and walking, see skin. Neurological: patient awake, alert, oriented x 3; cognitive function intact; pupils equally reactive to light and accomodation; cranial nerves II-XII grossly normal, moving all 4 extremities although limited right lower extremity given acute presentation, strength accordingly moderately globally decreased. Psychiatric: affect appears normal, no acute evidence of depressive or anxiety feelings. Vitals/I&O's: Vital Signs Temp Pulse Resp BP Pulse Ox 97.6 F L 72 18 120/77 98 10/03/20 01:53 10/03/20 01:53 10/03/20 01:53 10/03/20 01:53 10/03/20 01:53 Oxygen Flow Rate (L/min) 3 Oxygen Delivery Method Nasal Cannula Weight: 246 lb 15.989 oz Body Mass Index (BMI) 35.4 Finger Stick Blood Glucose 196 Intake and Output for Last 24 Hours 10/01/20 10/02/20 10/03/20 23:59 23:59 23:59 Intake Total 3327.25 / 3327.25 2850 / 2850 1875 / 1875 Output Total 275 / 275 2250 / 2250 300 / 300 Balance 3052.25 / 3052.25 600 / 600 1575 / 1575 Microbiology Past 72 Hours 09/30/20 15:50 Blood Culture (Wb) - Right Hand Blood Culture - Preliminary No growth in 48 hours. 09/30/20 15:20 Blood Culture (Wb) - Left Hand Blood Culture - Preliminary No growth in 48 hours. 09/30/20 15:12 Mucosa - Nose SARS-CoV-2 Antigen (Rapid) - Final Laboratory Results 10/02/20 11:06: POC Glucose 108 10/02/20 15:21: Fluid Crystals See PATH REV, Fluid Crystal Source OTHER, Fl Crystal Path Review Will follow 10/02/20 15:32: POC Glucose 109 10/02/20 16:45: POC Glucose 140 H 10/02/20 22:13: POC Glucose 114 H 10/03/20 01:22: WBC 12.2 H, RBC 3.82 L, Hgb 12.0 L, Hct 36.8 L, MCV 96.3 H, MCH 31.4, MCHC 32.6, RDW Std Deviation 51.5 H, RDW Coeff of [place]ard 14.6, Plt Count 274, MPV 9.4, Immature Gran % (Auto) 0.800, Neut % (Auto) 82.4 H, Lymph % (Auto) 5.8 L, [place] % (Auto) 10.5 H, Eos % (Auto) 0.1, Baso % (Auto) 0.4, Absolute Neuts (auto) 10.1 H, Absolute Lymphs (auto) 0.71 L, Nucleated RBC % 0 10/03/20 01:22: PT 17.5 H, INR 1.5 10/03/20 01:22: Sodium 135 L, Potassium 3.9, Chloride 103, Carbon Dioxide 26.0, Anion Gap 6, BUN 32 H, Creatinine 1.57 H, Estim Creat Clear Calc 37.46, Est GFR (MDRD) Af Amer 55 L, Est GFR (MDRD) Non-Af 45 L, BUN/Creatinine Ratio 20.4 H, Glucose 133 H, Calcium 8.1 L, Total Bilirubin 1.60 H, AST 33, ALT 36, Alkaline Phosphatase 121 H, Total Protein 6.5, Albumin 2.7 L, Globulin 3.8, Albumin/Globulin Ratio 0.7 L 10/03/20 01:22: Vancomycin Trough 23.0 H 10/03/20 06:33: POC Glucose 124 H Current Medications Acetaminophen (Acetaminophen 325 Mg Tablet) 650 mg PO Q6H PRN PRN PRN Reason: Pain Score 1-10/Temp > 100.7 F Last Admin: 10/03/20 05:44 Dose: 650 mg Documented by: Al Hydroxide/Mg Hydroxide (Mag Hydrox/Al Hydrox/Simeth 30 Ml Udc) 30 ml PO Q6H PRN PRN PRN Reason: Gastric Burning Albuterol Sulfate (Albuterol 2.5 Mg/3 Ml Vial.Neb.) 2.5 mg INHALATION Q2H PRN PRN PRN Reason: Shortness of Breath/Wheezing Last Admin: 10/02/20 19:04 Dose: 2.5 mg Documented by: Allopurinol (Allopurinol 300 Mg Tablet) 300 mg PO QHS [facility] Last Admin: 10/02/20 22:15 Dose: 300 mg Documented by: Amlodipine Besylate (Amlodipine 5 Mg Tablet) 5 mg PO DAILY [facility] Last Admin: 10/02/20 08:06 Dose: 5 mg Documented by: Dextrose (Dextrose 50%-Water 25 Gm/50 Ml Disp.Syrin) 0 gm IV X1 PRN; Protocol PRN Reason: Hypoglycemia Famotidine (Famotidine 20 Mg Tablet) 20 mg PO BID [facility] Last Admin: 10/02/20 22:15 Dose: 20 mg Documented by: Furosemide (Furosemide 40 Mg/4 Ml Vial) 40 mg IV BID@1000,1800 [facility] Stop: 10/03/20 10:01 Last Admin: 10/02/20 18:40 Dose: 40 mg Documented by: Glucagon (Glucagon 1 Mg/Ml Syringe) 1 mg IM .X1 PRN PRN Reason: Hypoglycemia Hydralazine HCl (Hydralazine 20 Mg/Ml Vial) 10 mg IV Q4H PRN PRN PRN Reason: SBP > 160 Sodium Chloride () 250 mls @ 15 mls/hr IV .[id number] PRN PRN Reason: Saline Flush Last Infusion: 10/03/20 06:38 Dose: Infused Documented by: Sodium Chloride () 250 mls @ 15 mls/hr IV .[id number] PRN PRN Reason: Additional IVPB Infusion Vancomycin IV Pharmacy to Dose (1 ea/ Sodium Chloride) 500 mls @ 250 mls/hr IV X1 PRN; Protocol PRN Reason: Rx to Dose Vancomycin HCl 1,250 mg/ (Sodium Chloride) 275 mls @ 167 mls/hr IV Q12H [facility] Last Infusion: 10/03/20 03:45 Dose: Infused Documented by: Cefepime HCl 2 gm/ Sodium (Chloride) 100 mls @ 200 mls/hr IV Q8 [facility] Last Infusion: 10/03/20 06:14 Dose: Infused Documented by: Lactated Ringer's () 1,000 mls @ 100 mls/hr IV .Q10H [facility] Last Infusion: 10/03/20 06:37 Dose: 100 mls/hr Documented by: Insulin Human Lispro (Insulin Lispro 100 Unit/Ml Insuln.Pen) 0 unit SC ACHS [facility]; Protocol Last Admin: 10/03/20 06:36 Dose: Not Given Documented by: Melatonin (Melatonin 3 Mg Tablet) 3 mg PO QHS PRN PRN PRN Reason: INSOMNIA Metoprolol Succinate (Metoprolol(Xl)Succ 100 Mg Tablet) 100 mg PO DAILY [facility] Last Admin: 10/02/20 08:06 Dose: 100 mg Documented by: Morphine Sulfate (Morphine 2 Mg/Ml Syringe) 2 mg IV Q3H PRN PRN PRN Reason: Pain Score 6-10 Nitroglycerin (Nitroglycerin (Inpatient Use) 0.4 Mg Tab.Subl) 0.4 mg SUBLINGUAL Q5M PRN PRN Reason: CARDIAC/CHEST PAIN Oxycodone HCl (Oxycodone 5 Mg Tablet) 5 mg PO Q4H PRN PRN PRN Reason: Pain Score 4-5 Potassium Chloride (Potassium Chloride 20 Meq Tablet) [facility] Last Admin: 10/02/20 08:06 Dose: 20 meq Documented by: Prochlorperazine Edisylate (Prochlorperazine 10 Mg/2 Ml Vial) 5 mg IV Q4H PRN PRN PRN Reason: Breakthrough nausea/vomiting Senna/Docusate Sodium (Senna/Docusate Sodium 1 Tablet) 2 tablet PO BID PRN PRN PRN Reason: Constipation Sodium Chloride (0.9% Saline Lock 10 Ml Syringe) 10 - 40 ml IV UD PRN PRN Reason: SALINE FLUSH Last Admin: 10/02/20 06:43 Dose: 10 ml Documented by: Tolterodine Tartrate (Tolterodine Tartrate 2 Mg Cap.Sa) 2 mg PO DAILY [facility] Last Admin: 10/02/20 08:06 Dose: 2 mg Documented by: Medical Necessity - Tobacco Use Smoking Status: Current every day smoker Tobacco Use: Pipe Assessment/Plan All Active Problems (Last Reviewed 09/19/20 @ 09:29 by Mey Holloway PA, PA) Septic arthritis of knee, right (Acute) Acute hemorrhagic colitis (Resolved) Black tarry stools (Resolved) Rectal bleeding (Resolved) The patient is an 80 y/o M w/ PMHx: CKD stage III, Chronic anemia, PAF on coumadin, Diabetes mellitus type II with neuropathy, Obesity, HTN, HLD, Chronic COPD, Chronic Diastolic CHF, Chronic back pain with stenosis, OA who presents to the [facility] ED on 09/30/[address] Cohen who evaluated him in the office for onset right knee pain, edema x48 hours with at that time no associated fevers or chills with outpatient aspiration with referral to the ED for I&D. 1. Acute right knee septic arthritis: Admission CBC with WBC 10.8 with left shift, elevated temperatures overnight which is since normalized, synovial fluid showed WBC 68,420, 77% neutrophils with no crystals. Patient admitted to medical surgical floor, administered vancomycin x1 in the ED, continued on Unasyn initially with eventual transition to cefepime with aspirate cultures with Pseudomonas aeruginosa, MRSA negative, coumadin held upon admission w/ 10/01/20 vitamin K 5 mg and 10/02/20 6 am administration FFP x 1 pack with follow-up INR 1.5. Orthopedic surgery Dr. Cohen 10/02/2020 OR with I&D total knee arthroplasty with polyethylene liner exchange with OR cultures pending however original aspirate with Pseudomonas aeruginosa growth noted, blood cultures remain negative, planned PICC line 10/03/2020, plan antibiotic therapy x6 weeks, noted dressing change may be left x72 hours following which it should be removed in the region clean with antibacterial soap and warm water with no submersion, pat dry and replace dry dressing with continue thigh-high ALBERTO hose with no tape or adhesive to that region but allowable light Sabino wrap over ABD if stockings removed. Orthopedic surgery requested follow-up in their office 10/21/2020 for suture removal and wound check with clearance for resumption of anticoagulant therapy. Given significant needs and planned PICC with IV prolonged antibiotic therapy will plan 10/04/2020 transition to TCU. Will continue coumadin starting 10/03/20 evening; however, closely monitoring for increased bleeding. 2. Chronic BL LE Stasis Disease with stasis ulcers: Educated patient on sleeping upright in a chair routinely, question continued snug SABINO wraps and dose with IV lasix 40 mg x 3 doses with improvement of lower extremity swelling, strongly again encouraged elevation lower extremities above heart, 10/03/2020 evening transition back to oral twice daily Lasix regimen. 3. PAF: Patient coumadin held with per Orthopedic surgery discussions administration 10/01/20 vitamin K 5 mg and 10/02/20 6 am administration FFP x 1 pack with follow-up INR 1.5. Continued home metoprolol. 10/03/2020 plan resumption Coumadin therapy with continued INR trending and close monitoring of patient operative site given bleeding. 4. Diabetes mellitus type II: Hold oral home regimen, ADA diet, accu checks w/ ISS. Hemoglobin A1c obtained and noted to be 6.7%. 5. Chronic Kidney Disease Stage III: Admission BUN/Cr 29/1.38, baseline renal function similar 1.3--> 10/03/2020 BUN/creatinine 32/1.57, likely elevated secondary to recent usage IV Lasix, transitioning back to oral regimen as noted, repeat level in AM. 6. Chronic anemia: Admission hemoglobin 12.6, MCV 96.3, has been noted to have been decreased to 10-12 range previously, primarily 13, 10/02/20 Hgb 13.2--> 10/03/2020 hemoglobin 12, will closely monitor repeat CBC given bleeding from operative site as noted. 7. Chronic diastolic CHF: ED chest x-ray with chronic changes with no acute evidence of overload. We will continue patient metoprolol, Lasix, not on statin nor SABINO inhibitor/ARB, encourage continued outpatient follow-up with cardiology. Held Coumadin upon presentation with results noted, 10/03/2020 resumption planned. 8. Hypertension: Continue home regimen including metoprolol, Lasix, Norvasc with hold parameters, PRN hydralazine. 9. Hyperlipidemia: Not on statin, encourage outpatient follow-up with cardiology. 10. Obesity: Weight loss and lifestyle changes encouraged. 12. Gout: We will continue patient home allopurinol regimen. 13. DVT prophylaxis: SCDs, 10/02/20 INR 1.5, 10/03/2020 Coumadin resumption with close monitoring as noted. Continue INR trending. 14. CODE STATUS: DNR CCA, no intubation status. Inpatient E&M: 37608 Subs Hosp L2
[2020-10-03] MEDS: Albuterol 2.5 MG/3 ML VIAL.NEB. INHALATION (08:00)
--- NOTE | 2020-10-03 09:22 | PCM.PN.ORT ---
Patient Problems: Active and Suspected Problems (Last Reviewed 09/19/20 @ 09:29 by Mey Holloway PA, PA) Septic arthritis of knee, right (Acute) Subjective: Patient seen and examined doing okay pain controlled no pain while sitting has done some ambulation with pain requiring much assist. Denies fever chills nausea vomiting shortness of breath or chest pain. - Physical Exam Vitals/I&O's: Vital Signs Temp Pulse Resp BP Pulse Ox 98.8 F 73 20 H 118/80 96 10/03/20 09:16 10/03/20 09:16 10/03/20 09:16 10/03/20 09:16 10/03/20 09:16 Oxygen Flow Rate (L/min) 3 Oxygen Delivery Method Nasal Cannula Weight: 246 lb 15.989 oz Body Mass Index (BMI) 35.4 Finger Stick Blood Glucose 196 Intake and Output for Last 24 Hours 10/01/20 10/02/20 10/03/20 23:59 23:59 23:59 Intake Total 3327.25 / 3327.25 2850 / 2850 1875 / 1875 Output Total 275 / 275 2250 / 2250 300 / 300 Balance 3052.25 / 3052.25 600 / 600 1575 / 1575 General: Cooperative, No apparent distress Extremities: - - Mepilex dressing with bloody drainage approaching edge of dressing was changed. Swelling in legs improved but still significant edema no further fracture blisters noted. Pulses palpable dorsalis pedis and posterior tibial brisk capillary refill range of motion is fair. No sign of compartment synd Microbiology Past 72 Hours 09/30/20 15:50 Blood Culture (Wb) - Right Hand Blood Culture - Preliminary No growth in 48 hours. 09/30/20 15:20 Blood Culture (Wb) - Left Hand Blood Culture - Preliminary No growth in 48 hours. 09/30/20 15:12 Mucosa - Nose SARS-CoV-2 Antigen (Rapid) - Final Laboratory Results 10/02/20 11:06: POC Glucose 108 10/02/20 15:21: Fluid Crystals See PATH REV, Fluid Crystal Source OTHER, Fl Crystal Path Review Will follow 10/02/20 15:32: POC Glucose 109 10/02/20 16:45: POC Glucose 140 H 10/02/20 22:13: POC Glucose 114 H 10/03/20 01:22: WBC 12.2 H, RBC 3.82 L, Hgb 12.0 L, Hct 36.8 L, MCV 96.3 H, MCH 31.4, MCHC 32.6, RDW Std Deviation 51.5 H, RDW Coeff of Willard 14.6, Plt Count 274, MPV 9.4, Immature Gran % (Auto) 0.800, Neut % (Auto) 82.4 H, Lymph % (Auto) 5.8 L, Butts % (Auto) 10.5 H, Eos % (Auto) 0.1, Baso % (Auto) 0.4, Absolute Neuts (auto) 10.1 H, Absolute Lymphs (auto) 0.71 L, Nucleated RBC % 0 10/03/20 01:22: PT 17.5 H, INR 1.5 10/03/20 01:22: Sodium 135 L, Potassium 3.9, Chloride 103, Carbon Dioxide 26.0, Anion Gap 6, BUN 32 H, Creatinine 1.57 H, Estim Creat Clear Calc 37.46, Est GFR (MDRD) Af Amer 55 L, Est GFR (MDRD) Non-Af 45 L, BUN/Creatinine Ratio 20.4 H, Glucose 133 H, Calcium 8.1 L, Total Bilirubin 1.60 H, AST 33, ALT 36, Alkaline Phosphatase 121 H, Total Protein 6.5, Albumin 2.7 L, Globulin 3.8, Albumin/Globulin Ratio 0.7 L 10/03/20 01:22: Vancomycin Trough 23.0 H 10/03/20 06:33: POC Glucose 124 H Current Medications Acetaminophen (Acetaminophen 325 Mg Tablet) 650 mg PO Q6H PRN PRN PRN Reason: Pain Score 1-10/Temp > 100.7 F Last Admin: 10/03/20 05:44 Dose: 650 mg Documented by: Al Hydroxide/Mg Hydroxide (Mag Hydrox/Al Hydrox/Simeth 30 Ml Udc) 30 ml PO Q6H PRN PRN PRN Reason: Gastric Burning Albuterol Sulfate (Albuterol 2.5 Mg/3 Ml Vial.Neb.) 2.5 mg INHALATION Q2H PRN PRN PRN Reason: Shortness of Breath/Wheezing Last Admin: 10/03/20 08:00 Dose: 2.5 mg Documented by: Allopurinol (Allopurinol 300 Mg Tablet) 300 mg PO QHS [facility] Last Admin: 10/02/20 22:15 Dose: 300 mg Documented by: Amlodipine Besylate (Amlodipine 5 Mg Tablet) 5 mg PO DAILY [facility] Last Admin: 10/02/20 08:06 Dose: 5 mg Documented by: Dextrose (Dextrose 50%-Water 25 Gm/50 Ml Disp.Syrin) 0 gm IV X1 PRN; Protocol PRN Reason: Hypoglycemia Famotidine (Famotidine 20 Mg Tablet) 20 mg PO BID [facility] Last Admin: 10/02/20 22:15 Dose: 20 mg Documented by: Furosemide (Furosemide 40 Mg/4 Ml Vial) 40 mg IV BID@1000,1800 [facility] Stop: 10/03/20 10:01 Last Admin: 10/02/20 18:40 Dose: 40 mg Documented by: Glucagon (Glucagon 1 Mg/Ml Syringe) 1 mg IM .X1 PRN PRN Reason: Hypoglycemia Hydralazine HCl (Hydralazine 20 Mg/Ml Vial) 10 mg IV Q4H PRN PRN PRN Reason: SBP > 160 Sodium Chloride () 250 mls @ 15 mls/hr IV .[id number] PRN PRN Reason: Saline Flush Last Infusion: 10/03/20 06:38 Dose: Infused Documented by: Sodium Chloride () 250 mls @ 15 mls/hr IV .[id number] PRN PRN Reason: Additional IVPB Infusion Vancomycin IV Pharmacy to Dose (1 ea/ Sodium Chloride) 500 mls @ 250 mls/hr IV X1 PRN; Protocol PRN Reason: Rx to Dose Vancomycin HCl 1,250 mg/ (Sodium Chloride) 275 mls @ 167 mls/hr IV Q12H [facility] Last Infusion: 10/03/20 03:45 Dose: Infused Documented by: Cefepime HCl 2 gm/ Sodium (Chloride) 100 mls @ 200 mls/hr IV Q8 [facility] Last Infusion: 10/03/20 06:14 Dose: Infused Documented by: Lactated Ringer's () 1,000 mls @ 100 mls/hr IV .Q10H [facility] Last Infusion: 10/03/20 06:37 Dose: 100 mls/hr Documented by: Insulin Human Lispro (Insulin Lispro 100 Unit/Ml Insuln.Pen) 0 unit SC ACHS [facility]; Protocol Last Admin: 10/03/20 06:36 Dose: Not Given Documented by: Melatonin (Melatonin 3 Mg Tablet) 3 mg PO QHS PRN PRN PRN Reason: INSOMNIA Metoprolol Succinate (Metoprolol(Xl)Succ 100 Mg Tablet) 100 mg PO DAILY [facility] Last Admin: 10/02/20 08:06 Dose: 100 mg Documented by: Morphine Sulfate (Morphine 2 Mg/Ml Syringe) 2 mg IV Q3H PRN PRN PRN Reason: Pain Score 6-10 Nitroglycerin (Nitroglycerin (Inpatient Use) 0.4 Mg Tab.Subl) 0.4 mg SUBLINGUAL Q5M PRN PRN Reason: CARDIAC/CHEST PAIN Oxycodone HCl (Oxycodone 5 Mg Tablet) 5 mg PO Q4H PRN PRN PRN Reason: Pain Score 4-5 Potassium Chloride ([facility] 20 [facility]) [facility] Last Admin: 10/02/20 08:06 Dose: 20 meq Documented by: Prochlorperazine Edisylate (Prochlorperazine 10 Mg/2 Ml Vial) 5 mg IV Q4H PRN PRN PRN Reason: Breakthrough nausea/vomiting Senna/Docusate Sodium (Senna/Docusate Sodium 1 Tablet) 2 tablet PO BID PRN PRN PRN Reason: Constipation Sodium Chloride (0.9% Saline Lock 10 Ml Syringe) 10 - 40 ml IV UD PRN PRN Reason: SALINE FLUSH Last Admin: 10/02/20 06:43 Dose: 10 ml Documented by: Tolterodine Tartrate (Tolterodine Tartrate 2 Mg Cap.Sa) 2 mg PO DAILY [facility] Last Admin: 10/02/20 08:06 Dose: 2 mg Documented by: Warfarin Sodium (Jantoven 2 Mg Tablet) 2 mg PO DAILY@1700 [facility] Medical Necessity - Tobacco Use Smoking Status: Current every day smoker Tobacco Use: Pipe Assessment/Plan All Active Problems (Last Reviewed 09/19/20 @ 09:29 by Mey JOHNSON, PA) Septic arthritis of knee, right (Acute) Acute hemorrhagic colitis (Resolved) Black tarry stools (Resolved) Rectal bleeding (Resolved) Postop day #1 irrigation and debridement total knee arthroplasty with polyethylene liner exchange. New cultures taken in OR are pending Pseudomonas aeruginosa's growth on original aspirate. Blood cultures negative PICC line will be ordered. Will need IV antibiotics 6 weeks. Would benefit from retirement facility before returning home patient is still hesitant. Significant lower extremity edema chronic concern for wound healing need strict elevation when not ambulating. On Lasix adjustment per admitting. Encourage ambulation and range of motion of knee ice and elevation Dressing change today may leave on for additional 72 hours if remains intact. Then should remove and clean with antibacterial soap and warm water but do not submerge. Pat dry and replace with dry dressing and thigh-high ALBERTO hose no tape or adhesive should be used. May use light Sabino wrap over ABD if stockings are removed. please follow up in office 10/21/2020. For suture removal wound check. resume anticoagulation.
--- NOTE | 2020-10-03 09:30 | CASEMGMT ---
ANTONIETA SCHWARTZ in to discuss discharge planning of home with HHC and IV ATBs vs SNF. Patient was provided a list of HHC, infusion,and SNF providers including quality and resource use data and consistent with the patient?s preferred geographic region, medical needs, and insurance network. The patient?s preferred provider is TCU if he would go to SNF. Patient wishes to discuss with when she comes in to visit. ANTONIETA SCHWARTZ updated SW regarding TCU referral.
--- NOTE | 2020-10-03 10:20 | PCM.PN.ID ---
Patient Problems: Active and Suspected Problems (Last Reviewed 09/19/20 @ 09:29 by Mey Holloway PA, PA) Septic arthritis of knee, right (Acute) Subjective: Feeling ok today s/p OR yesterday. No fever, no n/v/d. - Physical Exam Vitals/I&O's: Vital Signs Temp Pulse Resp BP Pulse Ox 98.8 F 73 20 H 118/80 97 10/03/20 09:53 10/03/20 09:53 10/03/20 09:53 10/03/20 09:53 10/03/20 09:53 Oxygen Flow Rate (L/min) 2 Oxygen Delivery Method Nasal Cannula Weight: 112.037 kg Body Mass Index (BMI) 35.4 Finger Stick Blood Glucose 196 Intake and Output for Last 24 Hours 10/01/20 10/02/20 10/03/20 23:59 23:59 23:59 Intake Total 3327.25 / 3327.25 2850 / 2850 1875 / 1875 Output Total 275 / 275 2250 / 2250 300 / 300 Balance 3052.25 / 3052.25 600 / 600 1575 / 1575 General: Alert, Cooperative, No apparent distress Lungs: Clear to auscultation, Normal air movement Cardiovascular: Regular rate, Regular Rhythm Abdomen: Soft, Non Tender, Non-Distended Skin: No rashes Microbiology Past 72 Hours 09/30/20 15:50 Blood Culture (Wb) - Right Hand Blood Culture - Preliminary No growth in 48 hours. 09/30/20 15:20 Blood Culture (Wb) - Left Hand Blood Culture - Preliminary No growth in 48 hours. 09/30/20 15:12 Mucosa - Nose SARS-CoV-2 Antigen (Rapid) - Final Laboratory Results 10/02/20 11:06: POC Glucose 108 10/02/20 15:21: Fluid Crystals See PATH REV, Fluid Crystal Source OTHER, Fl Crystal Path Review Will follow 10/02/20 15:32: POC Glucose 109 10/02/20 16:45: POC Glucose 140 H 10/02/20 22:13: POC Glucose 114 H 10/03/20 01:22: WBC 12.2 H, RBC 3.82 L, Hgb 12.0 L, Hct 36.8 L, MCV 96.3 H, MCH 31.4, MCHC 32.6, RDW Std Deviation 51.5 H, RDW Coeff of Willard 14.6, Plt Count 274, MPV 9.4, Immature Gran % (Auto) 0.800, Neut % (Auto) 82.4 H, Lymph % (Auto) 5.8 L, Pope % (Auto) 10.5 H, Eos % (Auto) 0.1, Baso % (Auto) 0.4, Absolute Neuts (auto) 10.1 H, Absolute Lymphs (auto) 0.71 L, Nucleated RBC % 0 10/03/20 01:22: PT 17.5 H, INR 1.5 10/03/20 01:22: Sodium 135 L, Potassium 3.9, Chloride 103, Carbon Dioxide 26.0, Anion Gap 6, BUN 32 H, Creatinine 1.57 H, Estim Creat Clear Calc 37.46, Est GFR (MDRD) Af Amer 55 L, Est GFR (MDRD) Non-Af 45 L, BUN/Creatinine Ratio 20.4 H, Glucose 133 H, Calcium 8.1 L, Total Bilirubin 1.60 H, AST 33, ALT 36, Alkaline Phosphatase 121 H, Total Protein 6.5, Albumin 2.7 L, Globulin 3.8, Albumin/Globulin Ratio 0.7 L 10/03/20 01:22: Vancomycin Trough 23.0 H 10/03/20 06:33: POC Glucose 124 H Current Medications Acetaminophen (Acetaminophen 325 Mg Tablet) 650 mg PO Q6H PRN PRN PRN Reason: Pain Score 1-10/Temp > 100.7 F Last Admin: 10/03/20 05:44 Dose: 650 mg Documented by: Al Hydroxide/Mg Hydroxide (Mag Hydrox/Al Hydrox/Simeth 30 Ml Udc) 30 ml PO Q6H PRN PRN PRN Reason: Gastric Burning Albuterol Sulfate (Albuterol 2.5 Mg/3 Ml Vial.Neb.) 2.5 mg INHALATION Q2H PRN PRN PRN Reason: Shortness of Breath/Wheezing Last Admin: 10/03/20 08:00 Dose: 2.5 mg Documented by: Allopurinol (Allopurinol 300 Mg Tablet) 300 mg PO QHS [facility] Last Admin: 10/02/20 22:15 Dose: 300 mg Documented by: Amlodipine Besylate (Amlodipine 5 Mg Tablet) 5 mg PO DAILY [facility] Last Admin: 10/02/20 08:06 Dose: 5 mg Documented by: Dextrose (Dextrose 50%-Water 25 Gm/50 Ml Disp.Syrin) 0 gm IV X1 PRN; Protocol PRN Reason: Hypoglycemia Famotidine (Famotidine 20 Mg Tablet) 20 mg PO BID [facility] Last Admin: 10/02/20 22:15 Dose: 20 mg Documented by: Furosemide (Furosemide 40 Mg Tablet) 40 mg PO BID@1000,1800 [facility] Glucagon (Glucagon 1 Mg/Ml Syringe) 1 mg IM .X1 PRN PRN Reason: Hypoglycemia Hydralazine HCl (Hydralazine 20 Mg/Ml Vial) 10 mg IV Q4H PRN PRN PRN Reason: SBP > 160 Sodium Chloride () 250 mls @ 15 mls/hr IV .[id number] PRN PRN Reason: Saline Flush Last Infusion: 10/03/20 06:38 Dose: Infused Documented by: Sodium Chloride () 250 mls @ 15 mls/hr IV .[id number] PRN PRN Reason: Additional IVPB Infusion Vancomycin IV Pharmacy to Dose (1 ea/ Sodium Chloride) 500 mls @ 250 mls/hr IV X1 PRN; Protocol PRN Reason: Rx to Dose Vancomycin HCl 1,250 mg/ (Sodium Chloride) 275 mls @ 167 mls/hr IV Q12H [facility] Last Infusion: 10/03/20 03:45 Dose: Infused Documented by: Cefepime HCl 2 gm/ Sodium (Chloride) 100 mls @ 200 mls/hr IV Q8 [facility] Last Infusion: 10/03/20 06:14 Dose: Infused Documented by: Lactated Ringer's () 1,000 mls @ 100 mls/hr IV .Q10H [facility] Last Infusion: 10/03/20 06:37 Dose: 100 mls/hr Documented by: Insulin Human Lispro (Insulin Lispro 100 Unit/Ml Insuln.Pen) 0 unit SC ACHS [facility]; Protocol Last Admin: 10/03/20 06:36 Dose: Not Given Documented by: Melatonin (Melatonin 3 Mg Tablet) 3 mg PO QHS PRN PRN PRN Reason: INSOMNIA Metoprolol Succinate (Metoprolol(Xl)Succ 100 Mg Tablet) 100 mg PO DAILY [facility] Last Admin: 10/02/20 08:06 Dose: 100 mg Documented by: Morphine Sulfate (Morphine 2 Mg/Ml Syringe) 2 mg IV Q3H PRN PRN PRN Reason: Pain Score 6-10 Nitroglycerin (Nitroglycerin (Inpatient Use) 0.4 Mg Tab.Subl) 0.4 mg SUBLINGUAL Q5M PRN PRN Reason: CARDIAC/CHEST PAIN Oxycodone HCl (Oxycodone 5 Mg Tablet) 5 mg PO Q4H PRN PRN PRN Reason: Pain Score 4-5 Potassium Chloride (Potassium Ch[facility]ide 20 Meq Tablet) [facility] Last Admin: 10/02/20 08:06 Dose: 20 meq Documented by: Prochlorperazine Edisylate (Prochlorperazine 10 Mg/2 Ml Vial) 5 mg IV Q4H PRN PRN PRN Reason: Breakthrough nausea/vomiting Senna/Docusate Sodium (Senna/Docusate Sodium 1 Tablet) 2 tablet PO BID PRN PRN PRN Reason: Constipation Sodium Chloride (0.9% Saline Lock 10 Ml Syringe) 10 - 40 ml IV UD PRN PRN Reason: SALINE FLUSH Last Admin: 10/02/20 06:43 Dose: 10 ml Documented by: Tolterodine Tartrate (Tolterodine Tartrate 2 Mg Cap.Sa) 2 mg PO DAILY [facility] Last Admin: 10/02/20 08:06 Dose: 2 mg Documented by: Warfarin Sodium (Jantoven 2 Mg Tablet) 2 mg PO DAILY@1700 [facility] Medical Necessity - Tobacco Use Smoking Status: Current every day smoker Tobacco Use: Pipe Route of nutrition/ use of supplements: [] Nutritional Intake: [] IV Site: [] Anne Catheter: [] - Assessment/Plan Antibiotics: [] Assessment/Plan: [] Active and Suspected Problems (Last Reviewed 09/19/20 @ 09:29 by Mey JOHNSON, PA) Septic arthritis of knee, right (Acute) R knee pseudomonas PJI - aspiration 09/30 with no crystals, wbc over 60k, poly predominant. Cx with PsA. Changed abx to cefepime. Taken to OR 10/02/[address] Cohen for I&D and poly exchange. Picc pending. Plan will be for 6 week course of iv cefepime, stop date 11/13/20, weekly bmp, cbc, and esr. I can follow him at TCU. Will follow
--- NOTE | 2020-10-03 10:27 | CASEMGMT ---
Social Work Note SW received referral that pt may be interested in TCU. SW placed a call to Annie in TCU, TCU would have a bed available tomorrow for pt. SW provided referral. Plan: Possibly TCU Halina Levin MSW, EMULSION OPERATOR
[2020-10-03] MEDS: Furosemide 40 MG/4 ML Vial IV (10:32)
[2020-10-03] MEDS: Tolterodine Tartrate 2 MG CAP.SA PO (10:33)
[2020-10-03] MEDS: Famotidine 20 MG Tablet PO (10:33)
[2020-10-03] MEDS: Metoprolol(XL)Succ 100 MG Tablet PO (10:34)
[2020-10-03] MEDS: 0.9% Saline Lock 10 ML Syringe IV ×2 (10:37→14:54)
[2020-10-03] MEDS: Insulin Lispro 100 UNIT/ML INSULN.PEN SC ×2 (11:36→17:19)
[2020-10-03 11:46] LABS: Bedside Glucose 190 mg/dL (70-110)
--- NOTE | 2020-10-03 13:10 | CASEMGMT ---
ANTONIETA SCHWARTZ in to discuss discharge planning with patient and . Patient and agreeable to TCU at discharge. ANTONIETA SCHWARTZ updated FRANKLYN Levin. TCU is able to accept patient and will have bed available Wednesday. Patient and updated and had no further questions or concerns at this time.
--- NOTE | 2020-10-03 13:25 | RAD_ITS ---
STUDY: X-RAY CHEST REASON FOR EXAM: Male, 80 years old. PICC LINE PLACEMENT. TECHNIQUE: Single AP portable view of the chest. COMPARISON: 09/30/2020 FINDINGS: PICC line seen on the right side its tip is at the cavoatrial junction is in good position. There are interstitial fibrotic changes of the lungs. Small bilateral pleural effusions. Normal size heart. Normal mediastinum and amauri. Normal visualized pulmonary arteries. Normal visualized aortic arch and descending thoracic aorta. There are diffuse degenerative changes of the visualized thoracic spine. There is degenerative osteoarthritis of the bilateral shoulders. There is no demonstrated abnormality of the visualized soft tissue structures of the upper abdomen. RAD/CXR for Line Placement IMPRESSION: There are interstitial fibrotic changes of the lung bases. Electronically Signed: Heaven Feng MD at 14:03 EST Tel , Service support ,
[2020-10-03 13:58] LABS: Pathologist Review Reviewed
[2020-10-03] MEDS: oxyCODONE 5 MG Tablet PO (14:57)
[2020-10-03 17:01] LABS: Bedside Glucose 168 mg/dL (70-110)
[2020-10-03] MEDS: Furosemide 40 MG Tablet PO (17:19)
[2020-10-03] MEDS: Jantoven 2 MG Tablet PO (17:20)
[2020-10-03] MEDS: Allopurinol 300 MG Tablet PO (22:32)
[2020-10-03 22:40] LABS: Bedside Glucose 133 mg/dL (70-110)
[2020-10-04 03:08] VITALS: BP 114/76; PULSE 69; RESP 17; TEMP 36.6; O2SAT 93
[2020-10-04] MEDS: 0.9% Saline Lock 10 ML Syringe IV ×2 (03:11→10:38)
[2020-10-04] MEDS: Insulin Lispro 100 UNIT/ML INSULN.PEN SC (06:31)
[2020-10-04 06:36] LABS: Absolute Lymphocyte Count 0.73 X10^3/uL (0.83-4.51); Absolute Neutrophil Count 8.3 X10^3/uL (2.0-7.7); Basophil# 0.05 X10^3/uL; Basophil% 0.5 % (0-1); Eosinophil# 0.06 X10^3/uL; Eosinophils% 0.6 % (0-5); Hematocrit 35.7 % (40-54); Hemoglobin 11.7 g/dL (13.0-16.5); Lymphocyte # 0.73 X10^3/ul (4.0); Lymphocyte % 7.1 % (19-41); Mean Corp Hgb Conc 32.8 g/dL (32-36); Mean Corpuscular Hgb 31.7 pg (27.0-32.0); Mean Corpuscular Volume 96.7 fL (80-94); Mean Platelet Vol. 9.4 fl (6.2-12.0); Monocyte# 1.15 X10^3/uL; Monocyte% 11.1 % (0-10); NRBC Flagged by Analyzer 0 % (0-5); Neutrophil # 8.27 X10^3/uL (2.7-7.7); Platelet Count 313 K/mm3 (150-450); RBC Distribution Width CV 14.3 % (11.6-14.6); RBC Distribution Width SD 51.1 fl (35.1-43.9); Red Blood Count 3.69 M/mm3 (4.6-6.2); White Blood Count 10.3 K/mm3 (4.4-11.0)
[2020-10-04 06:40] LABS: Bedside Glucose 153 mg/dL (70-110)
[2020-10-04 06:46] LABS: International Normalized Ratio 1.5; Prothrombin Time (Protime)PT. 17.2 SECONDS (11.7-14.9)
[2020-10-04 07:08] LABS: ALB/GLOB Ratio 0.7 RATIO (0.9-2.4); AST(SGOT) 43 U/L (15-37); Alanine Aminotransfer ALT/SGPT 39 U/L (16-61); Albumin, Serum 2.9 g/dL (3.2-5.0); Alkaline Phosphatase 159 U/L (45-117); Anion Gap 7 (5-15); BUN 39 mg/dL (7-18); Calcium,Total 8.4 mg/dL (8.5-10.1); Chloride 100 mmol/L (98-107); Creatinine, Serum 1.77 mg/dL (0.70-1.30); EST Glomerular Filtration Rate 39 mL/min (>60); Est Glom Filt Rate - Afr Amer 48 mL/min (>60); Estimated Creatinine Clearance 33.22 ml/min; Globulin 4.2 g/dL (2.2-4.2); Glucose 142 mg/dL (74-106); Protein, Total 7.1 g/dL (6.4-8.2); Sodium Level 133 mmol/L (136-145)
--- NOTE | 2020-10-04 07:09 | PCM.TXEXTCAR ---
- Diet 10/03/20 06:35 Diet: Cardiac - Heart Healthy/ADA 1800 calorie diet Is pt able to select menu?: Yes Admission Diagnoses: 1. Acute right knee Pseudomonas septic arthritis 2. Chronic BL LE Stasis Disease with stasis ulcers 3. PAF 4. Diabetes mellitus type II 5. Chronic Kidney Disease Stage III 6. Chronic anemia 7. Chronic diastolic CHF 8. Hypertension 9. Hyperlipidemia 10. Obesity 12. Gout - Routine Orders/Code Status Enema Type: Fleetz Enema Frequency: Daily PRN Suppository Type: Dulcolax 10mg Suppository Frequency: Daily PRN Keep PO Greater than or Equal to (%): 90 Routine Lab Work: - - Obtain INR trending 10/05/20 and as needed to monitor to achieve therapeutic level. Continue 6 week course IV cefepime per Dr. Martinez direction with weekly BMP, CBC, ESR to be faxed to Dr. Martinez. Code Status: DNRCC-A - DNR-CCA, no intubation status. - Wound(s) right medial knee Wound Type: sheer juan pablo lower legs Wound Type: Stasis Ulcer Dressing Change: Dry Sterile Dressing juan pablo third toes Wound Type: scabs Dressing Change: Dry Sterile Dressing right tibial Wound Type: Surgical Incision right upper ontiveros Wound Type: sheer - Suggestions for Active Care Change Position every (hours): 2 Hours to sit in a chair: 6 Times a day to sit in chair: 3 - Therapies Weight Bearing: Weight bearing as tolerated Extremity Affected:: Bilateral Lower - Above heart when seated and in bed, including at night. Physical Therapy: Eval and Treat Occupational Therapy: Eval and Treat - Allergies/Procedures Done in Hospital Allergies/Adverse Reactions: Allergies No Known Allergies Allergy (Verified 09/30/20 14:54) Procedures: PICC line placement, - - OR 10/02/[address] Cohen for I&D and poly exchange. - Type of Care/Length of Stay Estimated LOS: Convalescent Care Less Than 30 days Type of Care Needed: Skilled Rehab Potential: Good Prognosis: Good - Additional Orders/Day of Discharge Additional Orders: (1) Strongly encourage BL LE elevation above heart. (2) Would like patient to sleep in the bed with BL LE elevated and avoid the chair as he routinely sleeps in the chair with legs down. (3) Continue BL LE snug SABINO wraps, toes to knee, no skin showing, continuous, redo q shift and PRN if comes undone with (4) alterations per Orthopedic surgery as noted. (4) Dressing change in 72 hours if remains intact; however, if oozing which is expected then may change. Once removed clean with antibacterial soap and warm water but do not submerge, pat dry and replace with dry dressing and MAY use light Sabino wrap to RLE over ABD. (4) Follow-up with Orthopedic surgery 10/21/2020 for suture removal wound check. (5) Continue to closely monitor INR to achieve therapeutic level. (6) Fall precautions. (7) Continue IS 10x/hr 7a-7p. (8) Continue routine PICC line care per facility protocol. (8) Continue 6 week course IV cefepime per Dr. Martinez direction with weekly BMP, CBC, ESR to be faxed to Dr. Martinez. H&P will serve as current which was dated: 09/30/20 Day of Discharge: 10/04/20 - Dietary and Speech Recommendations Dietitian Recommendations/Changes: continue 1800 calorie controlled, cardiac diet as tolerated. - Follow Up Care Primary Care Physician: Man Cha MD [Primary Care Provider] - Please follow up with your Primary Care Physician in: Follow-up within 3-5 days discharge. Please Follow Up With: Arik Cohen DO When: Follow-up 10/21/20 for re-evaluation, suture removal. Please Follow Up With: Zofia yee When: Follow-up at [facility]ound Care center for BL LE stasis wounds/disease
[2020-10-04 07:25] VITALS: O2SAT 92
[2020-10-04 08:30] VITALS: BP 111/96; PULSE 75; RESP 20; TEMP 36.4; O2SAT 96
[2020-10-04 09:10] VITALS: BP 111/96; PULSE 81; RESP 18; TEMP 36.2; O2SAT 96
--- NOTE | 2020-10-04 09:19 | DS.PCM_ITS ---
Discharge Date and Diagnosis - Problem List Patient Problems: Active and Suspected Problems (Last Reviewed 09/19/20 @ 09:29 by Mey JOHNSON, PA) Septic arthritis of knee, right (Acute) Date of Admission: 09/30/20 Date of Discharge: 10/04/20 - Primary Discharge Diagnosis Acute Problems: Active Problems (Last Reviewed 09/19/20 @ 09:29 by Mey JOHNSON PA) 1. Acute right knee Pseudomonas septic arthritis 2. Chronic BL LE Stasis Disease with stasis ulcers 3. PAF 4. Diabetes mellitus type II 5. Chronic Kidney Disease Stage III 6. Chronic anemia 7. Chronic diastolic CHF 8. Hypertension 9. Hyperlipidemia 10. Obesity 12. Gout - Secondary Discharge Diagnosis Chronic Problems: Chronic Problems (Last Reviewed 09/19/20 @ 09:29 by Mey JOHNSON, PA) Atrial flutter (Chronic) Hyperlipidemia (Chronic) Essential hypertension (Chronic) Paroxysmal atrial fibrillation (Chronic) COPD (chronic obstructive pulmonary disease) (Chronic) Chronic diastolic heart failure (Chronic) Hospital Course and Treatment Dr. Cohen Orthopedic surgery Dr. Martinez Infectious disease Operations: - - OR 10/02/[address] Cohen for I&D and poly exchange. Procedures: PICC line placement Summary of Care Provided: The patient is an 80 y/o M w/ PMHx: CKD stage III, Chronic anemia, PAF on coumadin, Diabetes mellitus type II with neuropathy, Obesity, HTN, HLD, Chronic COPD, Chronic Diastolic CHF, Chronic back pain with stenosis, OA who presented to the [facility] ED on 09/30/[address] Cohen who evaluated him in the office for onset right knee pain, edema x48 hours with at that time no associated fevers or chills with outpatient aspiration with referral to the ED for I&D. Admission CBC with WBC 10.8 with left shift, elevated temperatures overnight which is since normalized, synovial fluid showed WBC 68,420, 77% neutrophils with no crystals. Patient admitted to medical surgical floor, administered vancomycin x1 in the ED, continued on Unasyn initially with eventual transition to cefepime with aspirate cultures with Pseudomonas aeruginosa, MRSA negative, coumadin held upon admission w/ 10/01/20 vitamin K 5 mg and 10/02/20 6 am administration FFP x 1 pack with follow-up INR 1.5. Orthopedic surgery Dr. Cohen 10/02/2020 OR with I&D total knee arthroplasty with polyethylene liner exchange with OR cultures pending however original aspirate with Pseudomonas aeruginosa growth noted, blood cultures remain negative, PICC line 10/03/2020, planned antibiotic therapy with cefepime x 6 weeks w/ noted dressing change may be left x 72 hours following which it should be removed in the region clean with antibacterial soap and warm water with no submersion, pat dry and replace dry dressing with continue thigh-high ALBERTO hose with no tape or adhesive to that region but allowable light Sabino wrap over ABD if stockings removed. Orthopedic surgery requested follow-up in their office 10/21/2020 for suture removal and wound check with clearance for resumption of anticoagulant therapy. Given significant needs and planned PICC with IV prolonged antibiotic therapy 10/04/2020 transition to TCU with continued coumadin with INR trending. During admission, educated patients several times on not sleeping upright in a chair routinely and strongly encouraged continued snug SABINO wraps with IV lasix dosing x 3 during admission with improvement of his BL LE lymphedema. Recommended upon discharge follow-up with Dr. Flores at the [facility]. Admission BUN/Cr 29/1.38, baseline renal function similar 1.3-->10/04/2020 BUN/creatinine 23/1.04, likely elevated secondary to recent usage IV Lasix, transitioned back to oral regimen as noted. Admission hemoglobin 12.6, MCV 96.3, has been noted to have been decreased to 10-12 range previously, primarily 13, 10/02/20 Hgb 13.2--> 10/04/2020 hemoglobin 12.6. DAY OF DISCHARGE PROGRESS NOTE: Subjective: Patient without acute event overnight per self and nursing report. Patient notes pain improved to the right knee, even with ambulation. Patient with occasional small amount of oozing, bleeding from the incision but this subsides with pressure an orthopedic surgery aware with planned evaluation upon DC transition on day of transition. Patient denies fever, chills, nausea, emesis, abdominal pain, chest pain or dyspnea. Patient agreeable to discharge to see with continued close evaluation per orthopedic surgery. Patient will be discharged with follow-up with primary care physician within 3-5 days in addition to follow-up on 10/21/[address] Cohen for evaluation of incision and suture removal. Objective: 98.9, heart rate 83, BP 133/85, respiratory rate 18, 98% on room air. Physical Examination: General: awake, alert, oriented x 3 and cooperative, seated upright in the surgical bedside chair, small oozing from the incision, pressure dressing being placed successfully. Skin: normal color, turgor, no icterus, cyanosis except noted staged ecchymoses, right knee with bandage in place status post aspiration with drainage noted with bleeding, still only small amount, pressure dressing being placed successfully, bilateral lower extremity swelling continues to improve, left greater than right, stasis ulcers with some drainage but improved. HEENT: AT/NC, EOMI, PERRLA, MMM. Lungs: Diminished breath sounds, greater bases, moderate effort, no rales, ronchi or wheezing. Heart: Regular rate and rhythm; no gallop, rub audible. Abdomen: soft, obese, NTTP, ND, normal BS. Extremities: no cyanosis or clubbing, see skin. Neurological: patient awake, alert, oriented x 3; cognitive function intact; pupils equally reactive to light and accomodation; cranial nerves II-XII grossly normal, moving all 4 extremities although limited right lower extremity given acute presentation, strength accordingly moderately globally decreased. Psychiatric: affect appears normal, no acute evidence of depressive or anxiety f eelings. Assessment and Plan: Please see hospital summary above. Patient Problems: Active and Suspected Problems (Last Reviewed 09/19/20 @ 09:29 by Mey JOHNSON, PA) Septic arthritis of knee, right (Acute) - Physical Exam Vitals/I&O's: Vital Signs Temp Pulse Resp BP Pulse Ox 97.5 F L 75 20 H 111/96 H 96 10/04/20 08:30 10/04/20 08:30 10/04/20 08:30 10/04/20 08:30 10/04/20 08:30 Oxygen Flow Rate (L/min) 2 Oxygen Delivery Method Room Air Weight: 246 lb 15.989 oz Body Mass Index (BMI) 35.4 Finger Stick Blood Glucose 196 Intake and Output for Last 24 Hours 10/02/20 10/03/20 10/04/20 23:59 23:59 23:59 Intake Total 2850 / 2850 4993.33 / 4993.33 1120 / 1120 Output Total 2250 / 2250 500 / 500 775 / 775 Balance 600 / 600 4493.33 / 4493.33 345 / 345 Microbiology Past 72 Hours 10/02/20 15:18 Tissue - Knee Gram Stain - Final 10/02/20 15:18 Tissue - Knee Anaerobic Culture - Preliminary No growth in 48 hours. 10/02/20 15:18 Tissue - Knee Gram Stain - Final 10/02/20 15:18 Tissue - Knee Wound Culture - Final Pseudomonas aeroginosa 10/02/20 15:18 Tissue - Knee Anaerobic Culture - Preliminary No growth in 48 hours. 09/30/20 15:50 Blood Culture (Wb) - Right Hand Blood Culture - Preliminary No growth in 48 hours. 09/30/20 15:20 Blood Culture (Wb) - Left Hand Blood Culture - Preliminary No growth in 48 hours. Laboratory Results 10/02/20 15:21: Fl Crystal Path Review Reviewed 10/03/20 11:34: POC Glucose 190 H 10/03/20 16:52: POC Glucose 168 H 10/03/20 22:29: POC Glucose 133 H 10/04/20 05:40: WBC 10.3, RBC 3.69 L, Hgb 11.7 L, Hct 35.7 L, MCV 96.7 H, MCH 31.7, MCHC 32.8, RDW Std Deviation 51.1 H, RDW Coeff of Willard 14.3, Plt Count 313, MPV 9.4, Immature Gran % (Auto) 0.700, Neut % (Auto) 80.0 H, Lymph % (Auto) 7.1 L, Ellis % (Auto) 11.1 H, Eos % (Auto) 0.6, Baso % (Auto) 0.5, Absolute Neuts (auto) 8.3 H, Absolute Lymphs (auto) 0.73 L, Nucleated RBC % 0 10/04/20 05:40: PT 17.2 H, INR 1.5 10/04/20 05:40: Sodium 133 L, Potassium 4.0, Chloride 100, Carbon Dioxide 26.0, Anion Gap 7, BUN 39 H, Creatinine 1.77 H, Estim Creat Clear Calc 33.22, Est GFR (MDRD) Af Amer 48 L, Est GFR (MDRD) Non-Af 39 L, BUN/Creatinine Ratio 22.0 H, Glucose 142 H, Calcium 8.4 L, Total Bilirubin 1.30 H, AST 43 H, ALT 39, Alkaline Phosphatase 159 H, Total Protein 7.1, Albumin 2.9 L, Globulin 4.2, Albumin/Globulin Ratio 0.7 L 10/04/20 06:29: POC Glucose 153 H Current Medications Acetaminophen (Acetaminophen 325 Mg Tablet) 650 mg PO Q6H PRN PRN PRN Reason: Pain Score 1-10/Temp > 100.7 F Last Admin: 10/03/20 05:44 Dose: 650 mg Documented by: Al Hydroxide/Mg Hydroxide (Mag Hydrox/Al Hydrox/Simeth 30 Ml Udc) 30 ml PO Q6H PRN PRN PRN Reason: Gastric Burning Albuterol Sulfate (Albuterol 2.5 Mg/3 Ml Vial.Neb.) 2.5 mg INHALATION Q2H PRN PRN PRN Reason: Shortness of Breath/Wheezing Last Admin: 10/03/20 08:00 Dose: 2.5 mg Documented by: Allopurinol (Allopurinol 300 Mg Tablet) 300 mg PO QHS [facility] Last Admin: 10/03/20 22:32 Dose: 300 mg Documented by: Amlodipine Besylate (Amlodipine 5 Mg Tablet) 5 mg PO DAILY [facility] Last Admin: 10/03/20 10:34 Dose: Not Given Documented by: Dextrose (Dextrose 50%-Water 25 Gm/50 Ml Disp.Syrin) 0 gm IV X1 PRN; Protocol PRN Reason: Hypoglycemia Famotidine (Famotidine 20 Mg Tablet) 20 mg PO DAILY [facility] Furosemide (Furosemide 40 Mg Tablet) 40 mg PO BID@1000,1800 [facility] Last Admin: 10/03/20 17:19 Dose: 40 mg Documented by: Glucagon (Glucagon 1 Mg/Ml Syringe) 1 mg IM .X1 PRN PRN Reason: Hypoglycemia Hydralazine HCl (Hydralazine 20 Mg/Ml Vial) 10 mg IV Q4H PRN PRN PRN Reason: SBP > 160 Sodium Chloride () 250 mls @ 15 mls/hr IV .[id number] PRN PRN Reason: Saline Flush Last Infusion: 10/03/20 06:38 Dose: Infused Documented by: Sodium Chloride () 250 mls @ 15 mls/hr IV .[id number] PRN PRN Reason: Additional IVPB Infusion Cefepime HCl 2 gm/ Sodium (Chloride) 100 mls @ 200 mls/hr IV Q12 [facility] Insulin Human Lispro (Insulin Lispro 100 Unit/Ml Insuln.Pen) 0 unit SC [facility]; Protocol Last Admin: 10/04/20 06:31 Dose: 2 u Documented by: Melatonin (Melatonin 3 Mg Tablet) 3 mg PO QHS PRN PRN PRN Reason: INSOMNIA Metoprolol Succinate (Metoprolol(Xl)Succ 100 Mg Tablet) 100 mg PO DAILY [facility] Last Admin: 10/03/20 10:34 Dose: 100 mg Documented by: Morphine Sulfate (Morphine 2 Mg/Ml Syringe) 2 mg IV Q3H PRN PRN PRN Reason: Pain Score 6-10 Nitroglycerin (Nitroglycerin (Inpatient Use) 0.4 Mg Tab.Subl) 0.4 mg SUBLINGUAL Q5M PRN PRN Reason: CARDIAC/CHEST PAIN Oxycodone HCl (Oxycodone 5 Mg Tablet) 5 mg PO Q4H PRN PRN PRN Reason: Pain Score 4-5 Last Admin: 10/03/20 14:57 Dose: 5 mg Documented by: Potassium Chloride (Potassium Chloride 20 Meq Tablet) [facility] Last Admin: 10/04/20 07:51 Dose: 20 meq Documented by: Prochlorperazine Edisylate (Prochlorperazine 10 Mg/2 Ml Vial) 5 mg IV Q4H PRN PRN PRN Reason: Breakthrough nausea/vomiting Senna/Docusate Sodium (Senna/Docusate Sodium 1 Tablet) 2 tablet PO BID PRN PRN PRN Reason: Constipation Sodium Chloride (0.9% Saline Lock 10 Ml Syringe) 10 - 40 ml IV UD PRN PRN Reason: SALINE FLUSH Last Admin: 10/04/20 03:11 Dose: 10 ml Documented by: Tolterodine Tartrate (Tolterodine Tartrate 2 Mg Cap.Sa) 2 mg PO DAILY [facility] Last Admin: 10/03/20 10:33 Dose: 2 mg Documented by: Warfarin Sodium (Jantoven 2 Mg Tablet) 2 mg PO DAILY@1700 [facility] Last Admin: 10/03/20 17:20 Dose: 2 mg Documented by: Home Medications: Medications to take at Discharge metFORMIN HCl [Glucophage] 500 mg PO BID 12/01/15 Amlodipine [Norvasc] 5 mg PO DAILY 03/21/18 Metoprolol(XL)Succ [Toprol Xl (Beta Zeina)] 100 mg PO DAILY 02/20/19 allopurinol 300 mg tablet 300 mg PO DAILY 02/27/19 magnesium 250 mg tablet 250 mg PO DAILY 02/28/19 oxybutynin chloride 5 mg tablet,extended release 24 hr 5 mg PO BID tab 07/23/20 furosemide 40 mg tablet 40 mg PO BID tab 09/19/20 potassium chloride 20 mEq tablet,extended release(part/cryst) 20 meq PO BID tab 09/19/20 Vitamin B Complex 1 tab PO DAILY 09/30/20 Warfarin Sodium 2 mg PO DAILY 09/30/20 Acetaminophen [Tylenol Tablet] 650 mg PO Q6H PRN PRN tab 10/04/20 Cefepime HCl [Maxipime] 2 gm IV Q8 10/04/20 Famotidine [Pepcid] 20 mg PO DAILY 10/04/20 Insulin Lispro [Humalog KwikPen] See Protocol [facility] ACHS 10/04/20 Mag Hydrox/Al Hydrox/Simeth [Mylanta II] 30 ml PO Q6H PRN PRN udc 10/04/20 Melatonin 3 mg PO QHS PRN PRN tab 10/04/20 Oxycodone [Oxyir] 5 mg PO Q4H PRN PRN 5 Days #20 tab 10/04/20 Senna/Docusate Sodium [Senokot-S] 2 tab PO BID PRN PRN tab 10/04/20 Following Prescriptions Were Given to Patient: Oxycodone [Oxyir] 5 mg PO Q4H PRN PRN 5 Days #20 tab PRN Reason: Pain Score 4-5 Prescription Printed Primary Care Physician: Man Cah MD [Primary Care Provider] - Please follow up with your Primary Care Physician in: Follow-up within 3-5 days discharge. Please Follow Up With: Arik Cohen DO When: Follow-up 10/21/20 for re-evaluation, suture removal. Please Follow Up With: Zofia flores When: Follow-up at [facility] for BL LE stasis wounds/disease Disposition: Long-Term facility Minutes spent on discharge:: 35 Patient Condition:: Fair Medical Necessity - Tobacco Use Smoking Status: Current every day smoker Tobacco Use: Pipe Meaningful Use Info Meaningful Use Diagnoses (Choose all that apply): None applicable Inpatient E&M: 88910 Disch Hosp
--- NOTE | 2020-10-04 09:28 | CASEMGMT ---
Social Work Note Pt is able to discharge to TCU today. SW spoke with Annie with TCU and updated her. SW spoke with pt, introduced self and role at [facility]. Pt is alert and orientated x3. SW updated pt that he will be discharged to TCU today. Pt states understanding. 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
[2020-10-04] MEDS: amLODIPine 5 MG Tablet PO (10:40)
[2020-10-04] MEDS: Tolterodine Tartrate 2 MG CAP.SA PO (10:40)
[2020-10-04] MEDS: Famotidine 20 MG Tablet PO (10:40)
[2020-10-04 10:41] VITALS: PULSE 81
[2020-10-04] MEDS: Furosemide 40 MG Tablet PO (10:41)
[2020-10-04] MEDS: Metoprolol(XL)Succ 100 MG Tablet PO (10:41)
[2020-10-04] MEDS: oxyCODONE 5 MG Tablet PO (10:54)
[2020-10-04] MEDS: Senna/Docusate Sodium 1 Tablet 2 TABLET PO (10:54)
[2020-10-04 11:31] LABS: Bedside Glucose 135 mg/dL (70-110)
--- NOTE | 2020-10-04 11:44 | PHA.DC.MR ---
Pharmacy Service has performed discharge medication reconciliation for this patient upon transfer to TCU Home Medications metFORMIN HCl [Glucophage] 500 mg PO BIDCM 07/23/15 Amlodipine [Norvasc] 5 mg PO DAILY 03/21/18 Metoprolol(XL)Succ [Toprol Xl (Beta Zeina)] 100 mg PO DAILY 02/20/19 allopurinol 300 mg tablet 300 mg PO DAILY 02/27/19 magnesium 250 mg tablet 250 mg PO DAILY 02/28/19 oxybutynin chloride 5 mg tablet,extended release 24 hr 5 mg PO BID tab 07/23/20 furosemide 40 mg tablet 40 mg PO BID tab 09/19/20 potassium chloride 20 mEq tablet,extended release(part/cryst) 20 meq PO BID tab 09/19/20 Vitamin B Complex 1 tab PO DAILY 09/30/20 Warfarin Sodium 2 mg PO DAILY 09/30/20 Cefepime HCl [Maxipime] 2 gm IV Q8 40 Days #120 vial 10/03/20 Acetaminophen [Tylenol Tablet] 650 mg PO Q6H PRN PRN tab 10/04/20 Famotidine [Pepcid] 20 mg PO DAILY tab 10/04/20 Insulin Lispro [Humalog KwikPen] See Protocol [facility] ACHS insuln.pen 10/04/20 Mag Hydrox/Al Hydrox/Simeth [Mylanta II] 30 ml PO Q6H PRN PRN udc 10/04/20 Melatonin 3 mg PO QHS PRN PRN tab 10/04/20 Oxycodone [Oxyir] 5 mg PO Q4H PRN PRN 5 Days #20 tab 10/04/20 Senna/Docusate Sodium [Senokot-S] 2 tab PO BID PRN PRN tab 10/04/20 The patient's discharge medication list was reviewed for discrepancies and discrepancies were resolved.
[2020-10-04 12:20] VITALS: BP 133/85; PULSE 83; RESP 18; TEMP 37.2; O2SAT 98
== END 2020-10-04 12:41 | disposition skilled nursing facility (03) | DRG 486 ==
LOC: ED 15:21 → MS3 16:30
PROVIDERS: Internal Medicine Infectious Disease; Orthopaedic Surgery; Admitting Provider Internal Medicine; Emergency Provider Emergency Medicine; PCP Family Medicine; Visit Provider Family Medicine
PROC: 0SPC09Z Removal of Liner from Right Knee Joint, Open Approach (ICD-10-PCS; CPT 27447; principal; 2020-10-02 12:05)
DX: T84.53XA Infection and inflammatory reaction due to internal right knee prosthesis, initial encounter (principal); I50.32 Chronic diastolic (congestive) heart failure; I13.0 Hypertensive heart and chronic kidney disease with heart failure and stage 1 through stage 4 chronic kidney disease, or unspecified chronic kidney disease; I48.92 Unspecified atrial flutter; L97.819 Non-pressure chronic ulcer of other part of right lower leg with unspecified severity; L97.829 Non-pressure chronic ulcer of other part of left lower leg with unspecified severity; Y83.1 Surgical operation with implant of artificial internal device as the cause of abnormal reaction of the patient, or of later complication, without mention of misadventure at the time of the procedure; M25.461 Effusion, right knee; M25.561 Pain in right knee; M79.89 Other specified soft tissue disorders; E78.5 Hyperlipidemia, unspecified; I48.0 Paroxysmal atrial fibrillation; N18.30 Chronic kidney disease, stage 3 unspecified; E11.22 Type 2 diabetes mellitus with diabetic chronic kidney disease; M10.9 Gout, unspecified; E66.9 Obesity, unspecified; J44.9 Chronic obstructive pulmonary disease, unspecified; B96.5 Pseudomonas (aeruginosa) (mallei) (pseudomallei) as the cause of diseases classified elsewhere; M19.90 Unspecified osteoarthritis, unspecified site; F17.210 Nicotine dependence, cigarettes, uncomplicated; Z96.659 Presence of unspecified artificial knee joint; Z68.35 Body mass index [BMI] 35.0-35.9, adult; I87.2 Venous insufficiency (chronic) (peripheral); Z66 Do not resuscitate; G89.29 Other chronic pain
CPT/HCPCS: 36415; 36569; 71045; 71046; 80048; 80053; 80202; 82945; 82962; 83036; 83605; 83735; 84100; 84157; 84550; 85025; 85610; 85652; 86140; 86850; 86900; 86901; 87015; 87040; 87070; 87075; 87077; 87102; 87116; 87176; 87186; 87205; 87206; 87426; 87641; 88304; 88305; 88311; 89050; 89051; 89060; 93005; 93971; 94640; 94762; 97110; 97116; 97162; 97164; 97166; 97530; 99284; C1776; J7040; J7050; J7120; P9017; A4216; J0295; J0696; J1940; J2405; J3490

== ENCOUNTER 2020-10-04 13:01 | Inpatient (IN) | payer MEDICARE, OTHER, SELFPAY ==
[2020-09-30 17:05] VITALS: BMI 35.4
[2020-10-04 13:04] VITALS: BP 134/89; PULSE 71; PULSE 74; RESP 20; TEMP 36; O2SAT 92; BMI 37.5
--- NOTE | 2020-10-04 13:05 | PCM.PN.ORT ---
Subjective: seen and examined pain controlled. no pain while sitting, pain with ambulation. no fever chills. - Physical Exam Vitals/I&O's: Body Mass Index (BMI) 35.4 Finger Stick Blood Glucose 196 General: Alert, Oriented x3, Cooperative, No apparent distress Extremities: - - some bloody drainge from lower end of incision. no dehisencs. swelling present. no worse. NVI Medical Necessity - Tobacco Use Smoking Status: Current every day smoker Assessment/Plan All Active Problems (Last Reviewed 09/19/20 @ 09:29 by Mey JOHNSON, PA) Septic arthritis of knee, right (Acute) Acute hemorrhagic colitis (Resolved) Black tarry stools (Resolved) Rectal bleeding (Resolved) evaluated for bloody drainage. expect this for 10 days or so. keep ABD fresh change daily and PRN. strict elevation when not ambulating. Thigh high alberto over abd and Sabino over ALBERTO. please change all dressings tomorrow and daily +PRN. IV abx per ID f/u in office 10/21/2020. call with any questions or concerns. if patient is still not home by then let me know and I can see him here.
--- NOTE | 2020-10-04 14:10 | PCM.HP.STD ---
Problem List (1) Debility Status: Acute (2) Infection of prosthetic right knee joint Status: Acute (3) Venous stasis dermatitis Status: Chronic (4) Atrial fibrillation Status: Chronic (5) Hypertension Status: Chronic (6) Chronic diastolic congestive heart failure Status: Chronic (7) Diabetes mellitus Status: Chronic (8) Gout Status: Chronic (9) Hypomagnesemia Status: Chronic (10) Overactive bladder Status: Chronic (11) Hypokalemia Status: Chronic (12) Hyperlipidemia Status: Chronic Qualifiers: (13) COPD (chronic obstructive pulmonary disease) Status: Chronic History of Present Illness Date of Admission: 10/04/20 Chief Complaint: Here for rehabilitation, strengthening, intravenous antibiotics, wound care, prior to discharge home with . 09/30/2020 The patient is a 80 year old Male with below past medical history presented to [facility] Emergency Department with right knee pain. 09/30/2020 EKG atrial flutter, nonspecific T wave abnormality. 09/30/2020 Chest X-ray bibasilar interstitial fibrotic changes. Right knee pain x 2 days, right knee swelling, difficult to walk. Orthopedics aspirated right knee, referred to Emergency Department for evaluation, admission to hospital. WBC 11.4, INR 2.4, Lactic acid 2.3, ESR 48, CRP 156. Synovial fluid consistent with infection, blood cultures sent. Vancomycin, Zosyn given. 09/30/2020 Admit to Hospital. Venous doppler right lower extremity negative DVT. Unasyn IV for prosthetic joint infection right knee. Swab for MRSA to consider Vancomycin. 10/01/2020 Infectious Disease recommended Vancomycin, Ceftriaxone IV. Cultures pending. 10/02/2020 Orthopedics performed right knee incision and drainage, polyethylene exchange. 10/03/2020 Cefepime IV right knee prosthetic joint infection. Aspirate culture grew Pseudomonas Aeruginosa. Fresh Frozen Plasma given to correct INR. ANAMARIA wraps, Lasix for bilateral lower extremity edema, venous stasis. 10/03/2020 Infectious Disease right knee Pseudomonas prosthetic joint infection. Cefepime IV thru 11/13/2020. 10/03/2020 Chest X-ray bibasilar interstitial fibrotic changes. 10/04/2020 Admit to TCU with debility, here for rehabilitation, strengthening, intravenous antibiotics, wound care, prior to discharge home with . Past Medical History Past Medical History (Chronic Problems): Chronic Problems (Last Reviewed 09/19/20 @ 09:29 by Mey JOHNSON, PA) Venous stasis dermatitis (Chronic) Atrial fibrillation (Chronic) Hypertension (Chronic) Chronic diastolic congestive heart failure (Chronic) Diabetes mellitus (Chronic) Gout (Chronic) Hypomagnesemia (Chronic) Overactive bladder (Chronic) Hypokalemia (Chronic) Atrial flutter (Chronic) Hyperlipidemia (Chronic) Essential hypertension (Chronic) Paroxysmal atrial fibrillation (Chronic) COPD (chronic obstructive pulmonary disease) (Chronic) Chronic diastolic heart failure (Chronic) Medical History: Medical History (Last Reviewed 09/19/20 @ 09:29 by Mey Holloway PA, PA) Atrial flutter (Chronic) I48.92 Hyperlipidemia (Chronic) E78.5 Essential hypertension (Chronic) I10 Paroxysmal atrial fibrillation (Chronic) I48.0 COPD (chronic obstructive pulmonary disease) (Chronic) J44.9 Chronic diastolic heart failure (Chronic) I50.32 Anticoagulated on Coumadin Z79.01 Colon polyps K63.5 Diabetic neuropathy E11.40 Gout M10.9 History of spinal stenosis Z87.39 OAB (overactive bladder) N32.81 Osteoarthritis M19.90 Type 2 diabetes mellitus without complication E11.9 Acute hemorrhagic colitis (Resolved) K52.9 Black tarry stools (Resolved) K92.1 Kidney stones N20.0 Rectal bleeding (Resolved) K62.5 Right rotator cuff tear arthropathy M75.101, M12.811 Allergies No Known Allergies Allergy (Verified 09/30/20 14:54) Home Medications: Ambulatory Orders Medication Instructions Recorded metFORMIN HCl [Glucophage] 500 mg PO BIDCM 07/23/15 Amlodipine [Norvasc] 5 mg PO DAILY 03/21/18 Metoprolol(XL)Succ [Toprol Xl 100 mg PO DAILY 02/20/19 (Beta Zeina)] allopurinol 300 mg tablet 300 mg PO DAILY 02/27/19 magnesium 250 mg tablet 250 mg PO DAILY 02/28/19 oxybutynin chloride 5 mg 5 mg PO BID tab 07/23/20 tablet,extended release 24 hr furosemide 40 mg tablet 40 mg PO BID tab 09/19/20 potassium chloride 20 mEq 20 meq PO BID tab 09/19/20 tablet,extended release(part/cryst) Vitamin B Complex 1 tab PO DAILY 09/30/20 Warfarin Sodium 2 mg PO DAILY 09/30/20 Acetaminophen [Tylenol Tablet] 650 mg PO Q6H PRN PRN tab 10/04/20 Cefepime HCl [Maxipime] 2 gm IV Q8 10/04/20 Famotidine [Pepcid] 20 mg PO DAILY 10/04/20 Insulin Lispro [Humalog KwikPen] See Protocol SC ACHS 10/04/20 Mag Hydrox/Al Hydrox/Simeth 30 ml PO Q6H PRN PRN udc 10/04/20 [Mylanta II] Melatonin 3 mg PO QHS PRN PRN tab 10/04/20 Oxycodone [Oxyir] 5 mg PO Q4H PRN PRN 5 Days #20 tab 10/04/20 Senna/Docusate Sodium [Senokot-S] 2 tab PO BID PRN PRN tab 10/04/20 Surgical History: Surgical History (Last Reviewed 09/19/20 @ 09:29 by Mey JOHNSON, PA) History of back surgery Z98.890 History of bilateral knee replacement Z96.653 History of carpal tunnel release of both wrists Z98.890 Hx of shoulder surgery Z98.890 Left Hx of umbilical hernia repair Z98.890, Z87.19 Surgical History: herniorrhaphy - Umbilical., total knee arthroplasty - Bilateral., - - Right wrist fracture, Kidney stones, Bilateral carpal tunnel release, back surgery. Psychiatric History: No pertinent psych hx Lives: Spouse/ Significant Other Smoking Status: Current every day smoker Tobacco Use: Cigarettes, Pipe Alcohol: None Drugs: None - *Family History Maternal Family History: Family History (Last Reviewed 09/19/20 @ 09:29 by Mey JOHNSON, PA) Brother Diabetes Sister Cancer Grandfather Heart disease Sister Alzheimers disease Sister Parkinson disease History Items: No pertinent history Paternal Family History: Family History (Last Reviewed 09/19/20 @ 09:29 by Mey JOHNSON, PA) Brother Diabetes Sister Cancer Grandfather Heart disease Sister Alzheimers disease Sister Parkinson disease History Items: No pertinent history Sibling Family History: Family History (Last Reviewed 09/19/20 @ 09:29 by Mey JOHNSON, PA) Brother Diabetes Sister Cancer Grandfather Heart disease Sister Alzheimers disease Sister Parkinson disease History Items: Cancer, Diabetes, Heart Disease Review of Systems Constitutional: Denies: Chills, Fever, Weight Change HEENT: Denies: Head Aches, Sinus Congestion, Sinus Drainage Cardiovascular: Denies: Chest Pain, Palpitations Respiratory: Denies: Cough, Shortness of breath at rest, Sputum production Gastrointestinal: Denies: Abdominal Pain, Nausea, Vomiting Genitourinary: Denies: Dysuria Musculoskeletal: Denies: Joint Pain, Joint Tenderness Skin: Denies: Rash, Wounds Neurological: Denies: Numbness, Tingling, Focal weakness Psychiatric: Denies: Anxiety, Depression, Homicidal Ideations, Suicidal Ideations Hematologic/ Lymphatic: Denies: Easy Bruising, Easy Bleeding VTE Information - Inpt Only VTE Present on Admission: No VTE Mechan Device Prophylaxis: Knee High ALBERTO Hose VTE Pharm Prophylaxis ordered?: No Reason prophylaxis not ordered:: Treatment Not Indicated Patient Problems: Active and Suspected Problems (Last Reviewed 09/19/20 @ 09:29 by Mey JOHNSON, PA) Debility (Acute) Infection of prosthetic right knee joint (Acute) - Physical Exam Vitals/I&O's: Vital Signs Temp Pulse Resp BP Pulse Ox 96.8 F L 74 20 H 134/89 H 92 10/04/20 13:04 10/04/20 13:04 10/04/20 13:04 10/04/20 13:04 10/04/20 13:04 Oxygen Flow Rate (L/min) 2 Oxygen Delivery Method Nasal Cannula Weight: 115.2 kg Body Mass Index (BMI) 37.5 Finger Stick Blood Glucose 196 General: Alert, Oriented x3, Cooperative HEENT: Atraumatic, PERRLA, EOMI, Normocephalic Neck: Supple, No JVD, Negative Carotid Bruits Lungs: Clear to auscultation, Normal air movement Cardiovascular: Regular rate, No murmurs Abdomen: Bowel Sounds Present, Soft, Non Tender Extremities: No edema, Capillary Refill Less than 3 Seconds, - - Right upper extremity PICC line. Skin: No rashes, No breakdown Musculoskeletal: No Tenderness to Palpation of Joints or Extremities, - - Right knee dressed. Neurological: Cranial nerves II-XII grossly intact Psych/Mental Status: Normal Affect, Appropriate Current Medications Acetaminophen (Acetaminophen 325 Mg Tablet) 650 mg PO Q6H PRN PRN PRN Reason: Pain Score 1-10/Temp > 100.7 F Al Hydroxide/Mg Hydroxide (Mag Hydrox/Al Hydrox/Simeth 30 Ml Udc) 30 ml PO Q6H PRN PRN PRN Reason: Gastric Burning Allopurinol (Allopurinol 300 Mg Tablet) 300 mg PO DAILY [facility] Amlodipine Besylate (Amlodipine 5 Mg Tablet) 5 mg PO DAILY [facility] Famotidine (Famotidine 20 Mg Tablet) 20 mg PO DAILY [facility] Furosemide (Furosemide 40 Mg Tablet) 40 mg PO BID [facility] Heparin Sodium (Beef Lung) (Heparin Pf Lock 10 Units/Ml 50 Units/5 Ml Syringe) 50 units IV UD PRN PRN Reason: PICC Line Heparin Flush Cefepime HCl 2 gm/ Sodium (Chloride) 100 mls @ 200 mls/hr IV Q12 DENIZ Stop: 11/13/20 00:00 Insulin Human Lispro (Insulin Lispro 100 Unit/Ml Insuln.Pen) 0 unit SC ACHS DENIZ; Protocol Magnesium Chloride (Magnesium Chloride 64 Mg Delay Rel.Tablet) 64 mg PO DAILY [facility] Magnesium Citrate (Magnesium Citrate 300 Ml) 300 ml PO X1 ONE Stop: 10/04/20 14:07 Melatonin (Melatonin 3 Mg Tablet) 3 mg PO QHS PRN PRN PRN Reason: INSOMNIA Metformin HCl (Metformin Hcl 500 Mg Tablet) [facility] Metoprolol Succinate (Metoprolol(Xl)Succ 100 Mg Tablet) 100 mg PO DAILY [facility] Multivitamins (Vitamin B Comp W-C Capsule) 1 capsule PO DAILY [facility] Oxycodone HCl (Oxycodone 5 Mg Tablet) 5 mg PO Q4H PRN PRN PRN Reason: Pain Score 4-10 Potassium Chloride (Potassium Chloride Oral Tablet 20 Meq) 20 meq PO BID [facility] Senna/Docusate Sodium (Senna/Docusate Sodium 1 Tablet) 1 tablet PO BID PRN PRN PRN Reason: Constipation Sodium Chloride (0.9 % Nacl (Sterile) Posiflush 10 Ml) 10 - 40 ml IV UD PRN PRN Reason: Port access or dressing change Sodium Chloride (0.9% Saline Lock 10 Ml Syringe) 10 - 40 ml IV UD PRN PRN Reason: Open End PICC Flush Tolterodine Tartrate (Tolterodine Tartrate 2 Mg Cap.Sa) 2 mg PO DAILY [facility] Tuberculin PPD (Tuberculin,Purif.Prot.Deriv. 50 Tu/Ml Vial) 5 tu ID X1 ONE Stop: 10/05/20 10:01 Tuberculin PPD (Tuberculin,Purif.Prot.Deriv. 50 Tu/Ml Vial) 5 tu ID X1 ONE Stop: 10/12/20 10:01 Warfarin Sodium (Jantoven 2 Mg Tablet) 2 mg PO DAILY@1700 [facility] Assessment/Plan All Active Problems (Last Reviewed 09/19/20 @ 09:29 by Mey Holloway PA, PA) Septic arthritis of knee, right (Acute) Debility (Acute) Infection of prosthetic right knee joint (Acute) Acute hemorrhagic colitis (Resolved) Black tarry stools (Resolved) Rectal bleeding (Resolved) 80 year old male with below past medical history hospitalized for Pseudomonas prosthetic joint infection right knee, underwent incision & drainage, polyethylene exchange 10/02/2020, admitted to TCU with debility, here for rehabilitation, strengthening, intravenous antibiotics, wound care, prior to discharge home with . Debility - PT/OT. Pain - Tylenol 1000MG Q6H PRN pain (1-3), Oxycodone 5MG Q4H PRN pain (4-10). Bowel - Miralax 17GM daily, Senna/colace 2 tablets BID, MOM 30ML daily PRN, Dulcolax 10MG RI daily PRN, Magnesium citrate 300ML PO x 1 bottle. Adult immunization - Administer Prevnar 13, Pneumovax 23, Fluzone, COVID19 vaccine as appropriate. DVT prophylaxis - Not necessary, already on warfarin. Gout - Allopurinol 300MG daily. Hypertension - Metoprolol succinate 100MG daily, Amlodipine 5MG daily. Pseudomonas prosthetic joint infection right knee status post incision/drainage polyethylene exchange - Cefepime 2GM IV Q12H thru 11/13/2020, consult Dr. Martinez. GERD - Famotidine 20MG daily. Chronic diastolic heart failure - Metoprolol succinate 100MG daily, Lasix 40MG BID. Diabetes Mellitus II - Metformin 500MG BID. Hypomagnesemia - Magnesium 64MG daily. Insomnia - Melatonin 3MG QHS PRN Hypokalemia - KCL 20MEQ BID. Overactive bladder - Tolterodine 2MG daily. Vitamin B deficiency - Vitamin B complex 1 tablet daily. Recurrent DVT - Warfarin 2MG daily, follow INR.
[2020-10-04] MEDS: Magnesium Citrate 300 ML PO (14:39)
--- NOTE | 2020-10-04 15:58 | CASEMGMT ---
Social Work Discussed code status with pt. Pt confirmed DNR-CCA, no intubation. MOLST form reviewed, communication to , placed in chart. Pt has HCPOA and LW on file, naming , Milagro Floyd, as POA. Completed Palliative Care screening tool. Score: 4. Will discuss with patient. Denise Madrigal, ELECTRONICS TECH CLIENT CARE CONSULTANT
--- NOTE | 2020-10-04 16:42 | NURSING ---
PICC dressing changed today, pt tolerated well, flushes easily and good blood return noted.
[2020-10-04] MEDS: Cefepime HCl 2 GM in 0.9% NS 100 ML Minibag Q12 IV (17:50)
[2020-10-04] MEDS: Jantoven 2 MG Tablet PO (17:57)
[2020-10-04] MEDS: Potassium Chloride Oral Tablet 20 MEQ PO (17:58)
[2020-10-04] MEDS: metFORMIN HCl 500 MG Tablet PO (17:58)
[2020-10-04] MEDS: Furosemide 40 MG Tablet PO (17:58)
[2020-10-04] MEDS: Senna/Docusate Sodium 1 Tablet 2 TABLET PO (17:59)
[2020-10-04] MEDS: 0.9% Saline Lock 10 ML Syringe IV (20:23)
--- NOTE | 2020-10-04 23:13 | NURSING ---
Cleansed right knee with normal saline, pat dry, abd applied with kerliex. Moderate serosanguineous drainage, incision well approximated, and sutures intact. This nurse noted a small dehiscence to incision. Rn made aware.
[2020-10-05] MEDS: Polyethylene Glycol 3350 17 GM PACKET PO (05:41)
[2020-10-05] MEDS: Furosemide 40 MG Tablet PO ×2 (05:41→17:12)
[2020-10-05] MEDS: Magnesium Chloride 64 MG Delay Rel.Tablet PO (05:41)
[2020-10-05] MEDS: Allopurinol 300 MG Tablet PO (05:41)
[2020-10-05] MEDS: amLODIPine 5 MG Tablet PO (05:41)
[2020-10-05] MEDS: Vitamin B Comp W-C Capsule 1 CAP PO (05:41)
[2020-10-05 05:42] VITALS: BP 126/77; PULSE 71
[2020-10-05] MEDS: Tolterodine Tartrate 2 MG CAP.SA PO (05:42)
[2020-10-05] MEDS: Potassium Chloride Oral Tablet 20 MEQ PO ×2 (05:42→17:11)
[2020-10-05] MEDS: Senna/Docusate Sodium 1 Tablet 2 TABLET PO ×2 (05:42→17:12)
[2020-10-05] MEDS: Metoprolol(XL)Succ 100 MG Tablet PO (05:42)
[2020-10-05] MEDS: Famotidine 20 MG Tablet PO (05:42)
[2020-10-05] MEDS: Cefepime HCl 2 GM in 0.9% NS 100 ML Minibag Q12 IV ×2 (05:48→17:21)
[2020-10-05] MEDS: 0.9% Saline Lock 10 ML Syringe IV ×3 (05:51→17:20)
--- NOTE | 2020-10-05 06:07 | NURSING ---
Patient given routine bowel protocol for bowel movement with warm prune juice.
[2020-10-05 06:20] LABS: Bedside Glucose 193 mg/dL (70-110)
[2020-10-05 07:00] VITALS: O2SAT 92
[2020-10-05 08:14] LABS: Absolute Lymphocyte Count 0.59 X10^3/uL (0.83-4.51); Absolute Neutrophil Count 8.4 X10^3/uL (2.0-7.7); Basophil# 0.08 X10^3/uL; Basophil% 0.8 % (0-1); Eosinophil# 0.09 X10^3/uL; Eosinophils% 0.9 % (0-5); Hematocrit 36.5 % (40-54); Hemoglobin 11.5 g/dL (13.0-16.5); Lymphocyte # 0.59 X10^3/ul (4.0); Lymphocyte % 5.7 % (19-41); Mean Corp Hgb Conc 31.5 g/dL (32-36); Mean Corpuscular Hgb 30.8 pg (27.0-32.0); Mean Corpuscular Volume 97.9 fL (80-94); Mean Platelet Vol. 9.7 fl (6.2-12.0); Monocyte# 1.14 X10^3/uL; NRBC Flagged by Analyzer 0 % (0-5); Neutrophil # 8.35 X10^3/uL (2.7-7.7); Neutrophil % 80.1 % (47-70); POSITIVE DIFFERENTIAL YES; Platelet Count 322 K/mm3 (150-450); RBC Distribution Width CV 14.2 % (11.6-14.6); RBC Distribution Width SD 51.3 fl (35.1-43.9); Red Blood Count 3.73 M/mm3 (4.6-6.2); White Blood Count 10.4 K/mm3 (4.4-11.0)
[2020-10-05 08:19] LABS: Differential Indicated SCAN CRITERIA MET
[2020-10-05] MEDS: Glucerna Shake 120 ML LIQUID PO (08:32)
[2020-10-05] MEDS: metFORMIN HCl 500 MG Tablet PO ×2 (08:33→17:10)
[2020-10-05 08:50] LABS: Anion Gap 5 (5-15); BUN 48 mg/dL (7-18); Calcium,Total 8.8 mg/dL (8.5-10.1); Chloride 101 mmol/L (98-107); Creatinine, Serum 2.29 mg/dL (0.70-1.30); EST Glomerular Filtration Rate 29 mL/min (>60); Est Glom Filt Rate - Afr Amer 35 mL/min (>60); Estimated Creatinine Clearance 24.87 ml/min; Glucose 143 mg/dL (74-106); Potassium 4.6 mmol/L (3.5-5.1); Sodium Level 131 mmol/L (136-145)
[2020-10-05 08:51] LABS: Erythrocyte Sedimentation Rate 63 mm/hr (0-20)
[2020-10-05 08:55] LABS: International Normalized Ratio 1.6; Prothrombin Time (Protime)PT. 18.5 SECONDS (11.7-14.9)
[2020-10-05 09:07] LABS: Differential Comment SCANNED
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
[2020-10-05] MEDS: Tuberculin,Purif.prot.deriv. 50 TU/ML Vial 5 ML ID (10:25)
--- NOTE | 2020-10-05 11:07 | NURSING ---
PT CALLED IN TO TALK TO THIS NURSE AND CHEWED HER ASS OUT AND WANTING TO KNOW WHY HIS WIFES DIET HAS CHANGED AND CANT HAVE WHAT SHE WANTS AFTER SHE HAS BEEN GETTING WHAT SHE HAS BEEN ORDERING. STATED/ CONCERNED CAUSE PT WEIGHTS NOTHING AND SO THIN. BLAMED DR. FLORES FOR DIET AND THIS NURSE TRIED TO EXPLANE TO THAT SPEECH THERAPY MAKES THOSE DECISIONS AND DIETARY AND STAFF MUST FOLLOW WHAT IS ORDERED. THIS NURSE EXPLAINED TO WHAT COULD HAPPEN LIKE CHOKING,ETC IF DIET NOT FOLLOWED. STATED ALL THIS IS IS WHAT IF AND I DONT LIKE THIS WHAT IF ITS NOTHING BUT BULL SHIT!! I WILL BE CALLING OUR ABOUT THIS AND IF [facility] NOT SATISFIED WITH THAT I WILL BE CALLING ADMINISTRATION ON WEDNESDAY. THIS NURSE STATED TO SHE UNDER STOOD AND IF HE HAD ANY MORE QUESTIONS OR CONCERNS TO PLEASE CALL US AT ANY TIME. REPORTED TO ANTONIETA
[2020-10-05 13:57] VITALS: BP 126/77; PULSE 68; RESP 20; TEMP 36.1; O2SAT 94
--- NOTE | 2020-10-05 14:58 | NURSING ---
CALLED TO UPDATE ON . NO ANSWER,LEFT MESSAGE.
[2020-10-05] MEDS: Jantoven 2 MG Tablet PO (17:11)
[2020-10-05] MEDS: Magnesium Hydroxide 30 ML UDC PO (18:19)
[2020-10-06] MEDS: oxyCODONE 5 MG Tablet PO ×2 (00:33→21:21)
[2020-10-06 02:13] VITALS: O2SAT 91
[2020-10-06 05:01] VITALS: BP 124/80; PULSE 71; RESP 18; TEMP 36.6; O2SAT 91
[2020-10-06] MEDS: Allopurinol 300 MG Tablet PO (05:03)
[2020-10-06] MEDS: Tolterodine Tartrate 2 MG CAP.SA PO (05:03)
[2020-10-06 05:04] VITALS: BP 124/80; PULSE 71
[2020-10-06] MEDS: Vitamin B Comp W-C Capsule 1 CAP PO (05:04)
[2020-10-06] MEDS: Metoprolol(XL)Succ 100 MG Tablet PO (05:04)
[2020-10-06] MEDS: Potassium Chloride Oral Tablet 20 MEQ PO ×2 (05:04→18:01)
[2020-10-06] MEDS: Furosemide 40 MG Tablet PO (05:04)
[2020-10-06] MEDS: Magnesium Chloride 64 MG Delay Rel.Tablet PO (05:04)
[2020-10-06] MEDS: Senna/Docusate Sodium 1 Tablet 2 TABLET PO ×2 (05:04→18:01)
[2020-10-06] MEDS: Polyethylene Glycol 3350 17 GM PACKET PO (05:05)
[2020-10-06] MEDS: amLODIPine 5 MG Tablet PO (05:05)
[2020-10-06] MEDS: Famotidine 20 MG Tablet PO (05:05)
[2020-10-06] MEDS: Cefepime HCl 2 GM in 0.9% NS 100 ML Minibag Q12 IV ×2 (05:05→18:07)
[2020-10-06] MEDS: Acetaminophen 500 MG Tablet 1000 MG PO ×2 (05:11→19:42)
[2020-10-06 06:20] LABS: Bedside Glucose 142 mg/dL (70-110)
[2020-10-06 06:57] LABS: Anion Gap 5 (5-15); BUN 60 mg/dL (7-18); BUN/Creat Ratio 23.4 RATIO (10-20); Calcium,Total 8.9 mg/dL (8.5-10.1); Chloride 100 mmol/L (98-107); Creatinine, Serum 2.56 mg/dL (0.70-1.30); EST Glomerular Filtration Rate 26 mL/min (>60); Est Glom Filt Rate - Afr Amer 31 mL/min (>60); Estimated Creatinine Clearance 22.25 ml/min; Glucose 135 mg/dL (74-106); Potassium 4.8 mmol/L (3.5-5.1); Sodium Level 133 mmol/L (136-145)
--- NOTE | 2020-10-06 07:16 | RAD_ITS ---
STUDY: X-RAY CHEST REASON FOR EXAM: Male, 80 years old. HEART FAILURE TECHNIQUE: PA and lateral views of the chest. COMPARISON: 10/03/2020 FINDINGS: Right upper extremity PICC which is unchanged. The lungs are clear and expanded. Small bilateral pleural effusions. Normal size heart. Normal mediastinum and amauri. Normal visualized pulmonary arteries. Normal visualized aortic arch and descending thoracic aorta. Normal visualized thoracic spine. Status post left shoulder reverse arthroplasty. There is no demonstrated abnormality of the visualized soft tissue structures of the upper abdomen. RAD/Chest PA and Lateral IMPRESSION: Small bilateral pleural effusions. Electronically Signed: Saul Maldonado MD at 8:55 EST Tel , Service support ,
--- NOTE | 2020-10-06 07:23 | RAD_ITS ---
STUDY: X-RAY - ABDOMEN/PELVIS REASON FOR EXAM: Male, 80 years old. CONSTIPATION TECHNIQUE: Single AP view of the abdomen / pelvis. COMPARISON: None. FINDINGS: Normal visualized lung bases. Gas in multiple loops of small bowel in a nonspecific bowel gas pattern. There is no demonstrated free abdominal air. The visualized liver, spleen and kidneys are grossly normal in size and morphology. Normal soft tissue structures. Dextroscoliosis lumbar spine with degenerative disc disease per RAD/Abdomen Single View IMPRESSION: Nonspecific bowel gas pattern. Electronically Signed: Saul Maldonado MD at 8:51 EST Tel , Service support ,
--- NOTE | 2020-10-06 07:50 | NURSING ---
dr ellis updated pt has not had BM for several days. new order for kub. labs reviewed and new orders for cxr, dc DONOVAN paul @ 75cc/hr, recheck BMP 10/07.
--- NOTE | 2020-10-06 07:53 | NURSING ---
pt back from xray via bed.
[2020-10-06] MEDS: 0.9% Normal Saline 1,000 ML 75 ML IV (08:01)
[2020-10-06] MEDS: metFORMIN HCl 500 MG Tablet PO ×2 (09:07→18:00)
[2020-10-06] MEDS: Glucerna Shake 120 ML LIQUID PO (09:07)
[2020-10-06] MEDS: Lactulose 20 GM/30 ML UDC PO (09:24)
[2020-10-06 10:50] VITALS: PULSE 71; RESP 18; O2SAT 95
--- NOTE | 2020-10-06 14:16 | RAD_ITS ---
STUDY: X-RAY CHEST REASON FOR EXAM: Male, 80 years old. PICC LINE PLACEMENT TECHNIQUE: Single AP portable view of the chest. COMPARISON: 10/06/2020 at 07 42 FINDINGS: Right upper extremity PICC which is unchanged. Poor inspiration with some bibasilar atelectasis. There is no demonstrated pleural abnormality. There is moderate cardiac enlargement. Normal mediastinum and amauri. Normal visualized pulmonary arteries. Normal visualized aortic arch and descending thoracic aorta. Normal visualized thoracic spine. Status post left shoulder reverse arthroplasty. There is no demonstrated abnormality of the visualized soft tissue structures of the upper abdomen. RAD/CXR for Line Placement IMPRESSION: Poor inspiration with some bibasilar atelectasis. Right upper extremity PICC which is unchanged. Electronically Signed: Saul Maldonado MD at 14:46 EST Tel , Service support ,
--- NOTE | 2020-10-06 14:18 | NURSING ---
Addendum entered by Barbra Gan 10/06/20 18:07: Dressing changed to RT upper arm PICC, 5 cm exposed. good blood return, flushed well, resistance. Addendum entered by Barbra Gan 10/06/20 17:07: studio musician notified of xray results, ok to use. Original Note: OMER dang notified this nurse that pt picc line was pulled by accident, will get chest xray for placement status.
[2020-10-06 14:53] VITALS: BP 126/84; PULSE 71; RESP 16; TEMP 36; O2SAT 92
--- NOTE | 2020-10-06 17:07 | NURSING ---
Addendum entered by Barbra Gan 10/06/20 18:06: pt had xlg amt soft, formed and liquid stool after enema. Original Note: When administering SSE d/t no BM several days, noted pitting edema to abdomen. Dr ellis updated, new order to restart lasix 40mg daily & DC IVF. pt assisted from bed to BSC & pt incont of brown liquid to floor on way to BSC, incont care provided. pt sitting on BSC, continues to relieve bowels. call light in reach
[2020-10-06] MEDS: Jantoven 2 MG Tablet PO (18:00)
--- NOTE | 2020-10-06 23:25 | NURSING ---
Yelling out, wanting to speak with , suspicious of staff, pulling at dressings and PICC line, trying to get out of chair, pt moved to room closer to NS. unable to reason with, TC to Dr Gamez and order obtained for Ativan
[2020-10-06] MEDS: LORazepam 0.5 MG Tablet PO (23:37)
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
[2020-10-07] MEDS: oxyCODONE 5 MG Tablet PO (01:20)
--- NOTE | 2020-10-07 02:13 | NURSING ---
Sitting on edge of bed, assisted to lie down, calmer at this time, eye closed, resp even, had been med for pain earlier
[2020-10-07] MEDS: Cefepime HCl 2 GM in 0.9% NS 100 ML Minibag Q12 IV (04:35)
[2020-10-07 06:17] LABS: International Normalized Ratio 1.9
[2020-10-07 06:22] LABS: Anion Gap 7 (5-15); BUN 68 mg/dL (7-18); BUN/Creat Ratio 23.9 RATIO (10-20); Calcium,Total 8.5 mg/dL (8.5-10.1); Chloride 99 mmol/L (98-107); Creatinine, Serum 2.85 mg/dL (0.70-1.30); EST Glomerular Filtration Rate 23 mL/min (>60); Est Glom Filt Rate - Afr Amer 28 mL/min (>60); Estimated Creatinine Clearance 19.98 ml/min; Glucose 148 mg/dL (74-106); Potassium 5.5 mmol/L (3.5-5.1); Sodium Level 130 mmol/L (136-145)
[2020-10-07 06:26] LABS: Bedside Glucose 148 mg/dL (70-110)
[2020-10-07 06:59] VITALS: BP 134/79; PULSE 68; RESP 18; TEMP 36.3; O2SAT 95
[2020-10-07 07:03] VITALS: BP 134/79; PULSE 68
[2020-10-07] MEDS: Furosemide 40 MG Tablet PO (07:03)
[2020-10-07] MEDS: Senna/Docusate Sodium 1 Tablet 2 TABLET PO (07:03)
[2020-10-07] MEDS: Metoprolol(XL)Succ 100 MG Tablet PO (07:03)
[2020-10-07] MEDS: amLODIPine 5 MG Tablet PO (07:03)
[2020-10-07] MEDS: Tolterodine Tartrate 2 MG CAP.SA PO (07:03)
[2020-10-07] MEDS: Famotidine 20 MG Tablet PO (07:03)
[2020-10-07] MEDS: Vitamin B Comp W-C Capsule 1 CAP PO (07:03)
[2020-10-07] MEDS: Allopurinol 300 MG Tablet PO (07:04)
[2020-10-07] MEDS: Magnesium Chloride 64 MG Delay Rel.Tablet PO (07:04)
--- NOTE | 2020-10-07 09:04 | NURSING ---
Pt confused, Calling out for , trying to get out of bed. Vitals BP L Arm lying 140/84 Pule 68 Spo2 94% on 4 L Temp 97.4 temporal. Changed dressing to right leg changed d/t being saturated.Dr. Gamez in room and sent pt to ER.
--- NOTE | 2020-10-07 13:40 | PHA.CONS_ITS ---
<Shameka Hall - Last Filed: 10/07/20 13:40> Progress Note - Pharmacy Subjective: TCU Admission Objective: Allergies No Known Allergies Allergy (Verified 10/07/20 08:35) Current Medications Generic Name Dose Route Start Last Admin Trade Name Freq PRN Reason Stop Dose Admin Acetaminophen 1,000 mg 10/04/20 14:55 10/06/20 19:42 Acetaminophen 500 Mg Tablet PO 1,000 mg Q6H PRN PRN Administration Pain Score 1-3 Al Hydroxide/Mg Hydroxide 30 ml 10/04/20 13:16 Mag Hydrox/Al Hydrox/Simeth 30 Ml Udc PO Q6H PRN PRN Gastric Burning Allopurinol 300 mg 10/05/20 06:00 10/07/20 07:04 Allopurinol 300 Mg Tablet PO 300 mg DAILY DENIZ Administration Amlodipine Besylate 5 mg 10/05/20 06:00 10/07/20 07:03 Amlodipine 5 Mg Tablet PO 5 mg DAILY DENIZ Administration Bisacodyl 10 mg 10/04/20 14:46 Bisacodyl 10 Mg Suppository RC DAILY PRN Constipation Famotidine 20 mg 10/05/20 06:00 10/07/20 07:03 Famotidine 20 Mg Tablet PO 20 mg DAILY DENIZ Administration Furosemide 40 mg 10/07/20 06:00 10/07/20 07:03 Furosemide 40 Mg Tablet PO 40 mg DAILY DENIZ Administration Heparin Sodium (Beef Lung) 50 units 10/05/20 10:48 Heparin Pf Lock 10 Units/Ml 50 Units/5 Ml Syringe IV UD PRN PICC Line Heparin Flush Cefepime HCl 2 gm/ Sodium 100 mls @ 200 mls/hr 10/04/20 18:00 10/07/20 04:35 Chloride IV 11/13/20 00:00 200 mls/hr Q12 DENIZ Administration Sodium Chloride 250 mls @ 15 mls/hr 10/04/20 16:03 IV .[id number] PRN Saline Flush Sodium Chloride 250 mls @ 15 mls/hr 10/04/20 16:03 IV .[id number] PRN Additional IVPB Infusion Magnesium Chloride 64 mg 10/05/20 06:00 10/07/20 07:04 Magnesium Chloride 64 Mg Delay Rel.Tablet PO 64 mg DAILY DENIZ Administration Magnesium Hydroxide 30 ml 10/04/20 14:45 10/05/20 18:19 Magnesium Hydroxide 30 Ml Udc PO 30 ml DAILY PRN Administration Constipation Melatonin 3 mg 10/04/20 13:16 Melatonin 3 Mg Tablet PO QHS PRN PRN INSOMNIA Metoprolol Succinate 100 mg 10/05/20 06:00 10/07/20 07:03 Metoprolol(Xl)Succ 100 Mg Tablet PO 100 mg DAILY DENIZ Administration Multivitamins 1 capsule 10/05/20 06:00 10/07/20 07:03 Vitamin B Comp W-C Capsule PO 1 capsule DAILY DENIZ Administration Nutritional Formula (Lactose Free) 120 ml 10/05/20 07:45 10/07/20 09:21 Glucerna Shake 120 Ml Liquid PO Not Given TIDCM DENIZ Oxycodone HCl 5 mg 10/04/20 13:16 10/07/20 01:20 Oxycodone 5 Mg Tablet PO 5 mg Q4H PRN PRN Administration Pain Score 4-10 Polyethylene Glycol 17 gm 10/05/20 06:00 10/07/20 07:04 Polyethylene Glycol 3350 17 Gm Packet PO Not Given DAILY DENIZ Senna/Docusate Sodium 2 tablet 10/04/20 18:00 10/07/20 07:03 Senna/Docusate Sodium 1 Tablet PO 2 tablet BID DENIZ Administration Sodium Chloride 10 - 40 ml 10/04/20 14:25 10/05/20 17:20 0.9% Saline Lock 10 Ml Syringe IV 20 ml UD PRN Administration Open End PICC Flush Sodium Chloride 10 - 40 ml 10/05/20 10:48 0.9% Saline Lock 10 Ml Syringe IV UD PRN Open End PICC Flush Sodium Chloride 10 - 40 ml 10/05/20 10:48 0.9 % Nacl (Sterile) Posiflush 10 Ml IV UD PRN Port access or dressing change Tolterodine Tartrate 2 mg 10/05/20 06:00 10/07/20 07:03 Tolterodine Tartrate 2 Mg Cap.Sa PO 2 mg DAILY DENIZ Administration Tuberculin PPD 5 tu 10/12/20 10:00 Tuberculin,Purif.Prot.Deriv. 50 Tu/Ml Vial ID 10/12/20 10:01 X1 ONE Warfarin Sodium 2 mg 10/04/20 17:00 10/06/20 18:00 Jantoven 2 Mg Tablet PO 2 mg DAILY@1700 DENIZ Administration Problem List (Last Reviewed 09/19/20 @ 09:29 by Mey Holloway PA, PA) Debility (Acute) Infection of prosthetic right knee joint (Acute) Venous stasis dermatitis (Chronic) Atrial fibrillation (Chronic) Hypertension (Chronic) Chronic diastolic congestive heart failure (Chronic) Diabetes mellitus (Chronic) Gout (Chronic) Hypomagnesemia (Chronic) Overactive bladder (Chronic) Hypokalemia (Chronic) Hyperlipidemia (Chronic) COPD (chronic obstructive pulmonary disease) (Chronic) Vital Signs Temp Pulse Resp BP Pulse Ox 97.4 F L 68 18 134/79 H 95 10/07/20 06:59 10/07/20 07:03 10/07/20 06:59 10/07/20 07:03 10/07/20 06:59 Oxygen Flow Rate (L/min) 4 Oxygen Delivery Method Nasal Cannula Weight: 115.212 kg Body Mass Index (BMI) 37.5 Finger Stick Blood Glucose 196 Sodium 130 mmol/L (136-145) L 10/07/20 05:30 Potassium 5.5 mmol/L (3.5-5.1) H 10/07/20 05:30 Chloride 99 mmol/L (98-107) 10/07/20 05:30 Carbon Dioxide 24.0 mmol/L (21.0-32.0) 10/07/20 05:30 Anion Gap 7 (5-15) 10/07/20 05:30 BUN 68 mg/dL (7-18) H 10/07/20 05:30 Creatinine 2.85 mg/dL (0.70-1.30) H 10/07/20 05:30 Est GFR (MDRD) Af Amer 28 mL/min (>60) L 10/07/20 05:30 Est GFR (MDRD) Non-Af 23 mL/min (>60) L 10/07/20 05:30 BUN/Creatinine Ratio 23.9 RATIO (10-20) H 10/07/20 05:30 Glucose 148 mg/dL (74-106) H 10/07/20 05:30 Assessment/Plan: 1. Pain: acetaminophen 1000mg PO Q6H PRN pain (1-3/10) and oxycodone 5mg PO Q4H PRN pain (4-10/10). Please continue to monitor for increased pain, PRN usage, constipation and respiratory depression. 2. 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 Decreased to Q24H due to renal function. Please continue to monitor renal function and worsening of infection. 3. Chronic diastolic heart failure/HTN: metoprolol succinate 100mg PO daily, furosemide 40mg PO daily, amlodipine 5mg PO daily. Please continue to monitor BP (last 134/79), HR (last 68), potassium level (last 5.5 mmol/L), renal function, and swelling. 4. Recurrent DVT: Warfarin 2mg PO daily. Please continue to monitor INR (last 1.9) and for S/S of bleeding. 5. GERD: Famotidine 20mg PO daily. Please continue to monitor for increased S/S of GERD. 6. Gout: Allopurinol 300mg PO daily. Please continue to monitor renal function and uric acid levels (last 5.1 mg/dL). 7. Overactive bladder: Tolterodine 2mg PO daily. Please continue to monitor for anticholinergic effects (dry mouth, constipation, dizziness) and renal function. 8. Hypomagnesemia: magnesium chloride 64mg PO daily. Please continue to monitor for S/S of hypomagnesemia and magnesium level (last 2.7 mg/dL). 9. Insomnia: melatonin 3mg PO QHS PRN insomnia. Please continue to monitor for daytime drowsiness. If patient is still unable to fall asleep, administer melatonin 3mg PO 2 hours prior to bedtime before adjusting dose. 10. Vitamin B deficiency: Vitamin B complex 1T PO daily. Please continue to monitor for S/S of low vitamin B. Psychotropic Medications: None Unnecessary Medications: None Bowel Regimen: Miralax 17gm PO daily, senna/docusate 2T PO BID, MOM 30mL PO daily PRN constipation, bisacodyl 10mg RC daily PRN constipation. Please continue to monitor for constipation and PRN usage. Date of Note:: 10/07/20 - Provider Comments Provider responsibility: Provider responsible to enter orders to implement rec ommendations <Nima Gamez Chi - Last Filed: 10/07/20 16:49> Progress Note - Pharmacy Subjective: [] Objective: Allergies No Known Allergies Allergy (Verified 10/07/20 08:35) Current Medications Generic Name Dose Route Start Last Admin Trade Name Freq PRN Reason Stop Dose Admin Acetaminophen 1,000 mg 10/04/20 14:55 10/06/20 19:42 Acetaminophen 500 Mg Tablet PO 1,000 mg Q6H PRN PRN Administration Pain Score 1-3 Al Hydroxide/Mg Hydroxide 30 ml 10/04/20 13:16 Mag Hydrox/Al Hydrox/Simeth 30 Ml Udc PO Q6H PRN PRN Gastric Burning Allopurinol 300 mg 10/05/20 06:00 10/07/20 07:04 Allopurinol 300 Mg Tablet PO 300 mg DAILY DENIZ Administration Amlodipine Besylate 5 mg 10/05/20 06:00 10/07/20 07:03 Amlodipine 5 Mg Tablet PO 5 mg DAILY DENIZ Administration Bisacodyl 10 mg 10/04/20 14:46 Bisacodyl 10 Mg Suppository RC DAILY PRN Constipation Famotidine 20 mg 10/05/20 06:00 10/07/20 07:03 Famotidine 20 Mg Tablet PO 20 mg DAILY DENIZ Administration Furosemide 40 mg 10/07/20 06:00 10/07/20 07:03 Furosemide 40 Mg Tablet PO 40 mg DAILY DENIZ Administration Cefepime HCl 2 gm/ Sodium 100 mls @ 200 mls/hr 10/08/20 06:00 Chloride IV 11/13/20 06:01 DAILY [facility] Magnesium Chloride 64 mg 10/05/20 06:00 10/07/20 07:04 Magnesium Chloride 64 Mg Delay Rel.Tablet PO 64 mg DAILY DENIZ Administration Magnesium Hydroxide 30 ml 10/04/20 14:45 10/05/20 18:19 Magnesium Hydroxide 30 Ml Udc PO 30 ml DAILY PRN Administration Constipation Melatonin 3 mg 10/04/20 13:16 Melatonin 3 Mg Tablet PO QHS PRN PRN INSOMNIA Metoprolol Succinate 100 mg 10/05/20 06:00 10/07/20 07:03 Metoprolol(Xl)Succ 100 Mg Tablet PO 100 mg DAILY [facility] Administration Multivitamins 1 capsule 10/05/20 06:00 10/07/20 07:03 Vitamin B Comp W-C Capsule PO 1 capsule DAILY DENIZ Administration Nutritional Formula (Lactose Free) 120 ml 10/05/20 07:45 10/07/20 13:59 Glucerna Shake 120 Ml Liquid PO Not Given TIDCM [facility] Oxycodone HCl 5 mg 10/04/20 13:16 10/07/20 01:20 Oxycodone 5 Mg Tablet PO 5 mg Q4H PRN PRN Administration Pain Score 4-10 Polyethylene Glycol 17 gm 10/05/20 06:00 10/07/20 07:04 Polyethylene Glycol 3350 17 Gm Packet PO Not Given DAILY DENIZ Senna/Docusate Sodium 2 tablet 10/04/20 18:00 10/07/20 07:03 Senna/Docusate Sodium 1 Tablet PO 2 tablet BID DENIZ Administration Tolterodine Tartrate 2 mg 10/05/20 06:00 10/07/20 07:03 Tolterodine Tartrate 2 Mg Cap.Sa PO 2 mg DAILY DENIZ Administration Tuberculin PPD 5 tu 10/12/20 10:00 Tuberculin,Purif.Prot.Deriv. 50 Tu/Ml Vial ID 10/12/20 10:01 X1 ONE Warfarin Sodium 2 mg 10/04/20 17:00 10/06/20 18:00 Jantoven 2 Mg Tablet PO 2 mg DAILY@1700 DENIZ Administration Problem List (Last Reviewed 10/07/20 @ 16:[address] 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) Venous stasis dermatitis (Chronic) Atrial fibrillation (Chronic) Hypertension (Chronic) Chronic diastolic congestive heart failure (Chronic) Diabetes mellitus (Chronic) Gout (Chronic) Hypomagnesemia (Chronic) Overactive bladder (Chronic) Hypokalemia (Chronic) Hyperlipidemia (Chronic) COPD (chronic obstructive pulmonary disease) (Chronic) Vital Signs Temp Pulse Resp BP Pulse Ox 97.4 F L 68 18 134/79 H 95 10/07/20 06:59 10/07/20 07:03 10/07/20 06:59 10/07/20 07:03 10/07/20 06:59 Oxygen Flow Rate (L/min) 4 Oxygen Delivery Method Nasal Cannula Weight: 115.212 kg Body Mass Index (BMI) 37.5 Finger Stick Blood Glucose 196 Sodium 130 mmol/L (136-145) L 10/07/20 05:30 Potassium 5.5 mmol/L (3.5-5.1) H 10/07/20 05:30 Chloride 99 mmol/L (98-107) 10/07/20 05:30 Carbon Dioxide 24.0 mmol/L (21.0-32.0) 10/07/20 05:30 Anion Gap 7 (5-15) 10/07/20 05:30 BUN 68 mg/dL (7-18) H 10/07/20 05:30 Creatinine 2.85 mg/dL (0.70-1.30) H 10/07/20 05:30 Est GFR (MDRD) Af Amer 28 mL/min (>60) L 10/07/20 05:30 Est GFR (MDRD) Non-Af 23 mL/min (>60) L 10/07/20 05:30 BUN/Creatinine Ratio 23.9 RATIO (10-20) H 10/07/20 05:30 Glucose 148 mg/dL (74-106) H 10/07/20 05:30 Assessment/Plan: Psychotropic Medications: Unnecessary Medications: Bowel Regimen: - Provider Comments Provider responsibility: Provider responsible to enter orders to implement recommendations Provider Comments to Recommendations by Pharmacy: Agree
[2020-10-07 13:51] LABS: Bedside Glucose 133 mg/dL (70-110)
--- NOTE | 2020-10-07 14:15 | PCM.PN.ID ---
Patient Problems: Active and Suspected Problems (Last Reviewed 09/19/20 @ 09:29 by Mey Holloway PA, PA) Debility (Acute) Infection of prosthetic right knee joint (Acute) - Physical Exam Vitals/I&O's: Vital Signs Temp Pulse Resp BP Pulse Ox 97.4 F L 68 18 134/79 H 95 10/07/20 06:59 10/07/20 07:03 10/07/20 06:59 10/07/20 07:03 10/07/20 06:59 Oxygen Flow Rate (L/min) 4 Oxygen Delivery Method Nasal Cannula Weight: 115.212 kg Body Mass Index (BMI) 37.5 Finger Stick Blood Glucose 196 Intake and Output for Last 24 Hours 10/05/20 10/06/20 10/07/20 23:59 23:59 23:59 Intake Total 680 / 680 920 / 920 1000 / 1000 Output Total 50 / 50 Balance 680 / 680 870 / 870 1000 / 1000 Laboratory Results 10/05/20 05:18: COVID-19 ([facility]) Not Detected 10/07/20 05:30: PT 21.0 H, INR 1.9 10/07/20 05:30: Sodium 130 L, Potassium 5.5 H, Chloride 99, Carbon Dioxide 24.0, Anion Gap 7, BUN 68 H, Creatinine 2.85 H, Estim Creat Clear Calc 19.98, Est GFR (MDRD) Af Amer 28 L, Est GFR (MDRD) Non-Af 23 L, BUN/Creatinine Ratio 23.9 H, Glucose 148 H, Calcium 8.5 10/07/20 06:19: POC Glucose 148 H 10/07/20 13:42: POC Glucose 133 H Current Medications Acetaminophen (Acetaminophen 500 Mg Tablet) 1,000 mg PO Q6H PRN PRN PRN Reason: Pain Score 1-3 Last Admin: 10/06/20 19:42 Dose: 1,000 mg Documented by: Al Hydroxide/Mg Hydroxide (Mag Hydrox/Al Hydrox/Simeth 30 Ml Udc) 30 ml PO Q6H PRN PRN PRN Reason: Gastric Burning Allopurinol (Allopurinol 300 Mg Tablet) 300 mg PO DAILY [facility] Last Admin: 10/07/20 07:04 Dose: 300 mg Documented by: Amlodipine Besylate (Amlodipine 5 Mg Tablet) 5 mg PO DAILY [facility] Last Admin: 10/07/20 07:03 Dose: 5 mg Documented by: Bisacodyl (Bisacodyl 10 Mg Suppository) 10 mg RC DAILY PRN PRN Reason: Constipation Famotidine (Famotidine 20 Mg Tablet) 20 mg PO DAILY [facility] Last Admin: 10/07/20 07:03 Dose: 20 mg Documented by: Furosemide (Furosemide 40 Mg Tablet) 40 mg PO DAILY [facility] Last Admin: 10/07/20 07:03 Dose: 40 mg Documented by: Heparin Sodium (Beef Lung) (Heparin Pf Lock 10 Units/Ml 50 Units/5 Ml Syringe) 50 units IV UD PRN PRN Reason: PICC Line Heparin Flush Sodium Chloride () 250 mls @ 15 mls/hr IV .[id number] PRN PRN Reason: Saline Flush Sodium Chloride () 250 mls @ 15 mls/hr IV .[id number] PRN PRN Reason: Additional IVPB Infusion Cefepime HCl 2 gm/ Sodium (Chloride) 100 mls @ 200 mls/hr IV DAILY [facility] Stop: 11/13/20 06:01 Magnesium Chloride (Magnesium Chloride 64 Mg Delay Rel.Tablet) 64 mg PO DAILY [facility] Last Admin: 10/07/20 07:04 Dose: 64 mg Documented by: Magnesium Hydroxide (Magnesium Hydroxide 30 Ml Udc) 30 ml PO DAILY PRN PRN Reason: Constipation Last Admin: 10/05/20 18:19 Dose: 30 ml Documented by: Melatonin (Melatonin 3 Mg Tablet) 3 mg PO QHS PRN PRN PRN Reason: INSOMNIA Metoprolol Succinate (Metoprolol(Xl)Succ 100 Mg Tablet) 100 mg PO DAILY [facility] Last Admin: 10/07/20 07:03 Dose: 100 mg Documented by: Multivitamins (Vitamin B Comp W-C Capsule) 1 capsule PO DAILY [facility] Last Admin: 10/07/20 07:03 Dose: 1 capsule Documented by: Nutritional Formula (Lactose Free) (Glucerna Shake 120 Ml Liquid) 120 ml PO TIDCM [facility] Last Admin: 10/07/20 13:59 Dose: Not Given Documented by: Oxycodone HCl (Oxycodone 5 Mg Tablet) 5 mg PO Q4H PRN PRN PRN Reason: Pain Score 4-10 Last Admin: 10/07/20 01:20 Dose: 5 mg Documented by: Polyethylene Glycol (Polyethylene Glycol 3350 17 Gm Packet) 17 gm PO DAILY [facility] Last Admin: 10/07/20 07:04 Dose: Not Given Documented by: Senna/Docusate Sodium (Senna/Docusate Sodium 1 Tablet) 2 tablet PO BID [facility] Last Admin: 10/07/20 07:03 Dose: 2 tablet Documented by: Sodium Chloride (0.9% Saline Lock 10 Ml Syringe) 10 - 40 ml IV UD PRN PRN Reason: Open End PICC Flush Last Admin: 10/05/20 17:20 Dose: 20 ml Documented by: Sodium Chloride (0.9% Saline Lock 10 Ml Syringe) 10 - 40 ml IV UD PRN PRN Reason: Open End PICC Flush Sodium Chloride (0.9 % Nacl (Sterile) Posiflush 10 Ml) 10 - 40 ml IV UD PRN PRN Reason: Port access or dressing change Tolterodine Tartrate (Tolterodine Tartrate 2 Mg Cap.Sa) 2 mg PO DAILY [facility] Last Admin: 10/07/20 07:03 Dose: 2 mg Documented by: Tuberculin PPD (Tuberculin,Purif.Prot.Deriv. 50 Tu/Ml Vial) 5 tu ID X1 ONE Stop: 10/12/20 10:01 Warfarin Sodium (Jantoven 2 Mg Tablet) 2 mg PO DAILY@1700 [facility] Last Admin: 10/06/20 18:00 Dose: 2 mg Documented by: Medical Necessity - Tobacco Use Smoking Status: Current every day smoker Tobacco Use: Cigarettes, Pipe Route of nutrition/ use of supplements: [] Nutritional Intake: [] IV Site: [] Anne Catheter: [] - Assessment/Plan Antibiotics: [] Assessment/Plan: [] Active and Suspected Problems (Last Reviewed 09/19/20 @ 09:29 by Mey JOHNSON, PA) Debility (Acute) Infection of prosthetic right knee joint (Acute) Pt gone from room, will continue cefepime as planned. Will follow, thank you
--- NOTE | 2020-10-07 15:43 | NURSING ---
Updated that pt was in ER and was sent over to PCU.
[2020-10-07 18:31] LABS: Bedside Glucose 137 mg/dL (70-110)
--- NOTE | 2020-10-07 19:14 | DCINST_ITS ---
- Discharge Diagnoses Current Active Problems: Current Active and Chronic Problems (Last Reviewed 10/07/20 @ 16:[address] 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) Venous stasis dermatitis (Chronic) Atrial fibrillation (Chronic) Hypertension (Chronic) Chronic diastolic congestive heart failure (Chronic) Diabetes mellitus (Chronic) Gout (Chronic) Hypomagnesemia (Chronic) Overactive bladder (Chronic) Hypokalemia (Chronic) Hyperlipidemia (Chronic) COPD (chronic obstructive pulmonary disease) (Chronic) You will use the following diet at home:: No restrictions, Regular Your food should be the consistency of: Regular Your liquids should be the consistency of: Regular/Thin Discharge Activity: Return to Normal Activity, May Shower, Use Walker Weight Bearing Status: Weight bearing as tolerated Call your doctor if you observe: Fever of 101 or Higher, Inability to urinate, Inability to have a bowel movement, Shortness of breath, Chest pain, Unco ntrolled pain Allergies/Adverse Reactions: Allergies No Known Allergies Allergy (Verified 10/07/20 08:35) Medications to take at Discharge metFORMIN HCl [Glucophage] 500 mg PO BIDCM 07/23/15 Amlodipine [Norvasc] 5 mg PO DAILY 03/21/18 Metoprolol(XL)Succ [Toprol Xl (Beta Zeina)] 100 mg PO DAILY 02/20/19 allopurinol 300 mg tablet 300 mg PO DAILY 02/27/19 magnesium 250 mg tablet 250 mg PO DAILY 02/28/19 oxybutynin chloride 5 mg tablet,extended release 24 hr 5 mg PO BID tab 07/23/20 furosemide 40 mg tablet 40 mg PO BID tab 09/19/20 potassium chloride 20 mEq tablet,extended release(part/cryst) 20 meq PO BID tab 09/19/20 Vitamin B Complex 1 tab PO DAILY 09/30/20 Warfarin Sodium 2 mg PO DAILY 09/30/20 Acetaminophen [Tylenol Tablet] 650 mg PO Q6H PRN PRN tab 10/04/20 Cefepime HCl [Maxipime] 2 gm IV Q8 10/04/20 Famotidine [Pepcid] 20 mg PO DAILY 10/04/20 Insulin Lispro [Humalog KwikPen] See Protocol SC ACHS 10/04/20 Mag Hydrox/Al Hydrox/Simeth [Mylanta II] 30 ml PO Q6H PRN PRN udc 10/04/20 Melatonin 3 mg PO QHS PRN PRN tab 10/04/20 Oxycodone [Oxyir] 5 mg PO Q4H PRN PRN 5 Days #20 tab 10/04/20 Senna/Docusate Sodium [Senokot-S] 2 tab PO BID PRN PRN tab 10/04/20 Primary Care Physician: Man Cha MD [Primary Care Provider] - Please follow up with your Primary Care Physician in: 1 week. Test Results: Test results from this visit will be discussed in further detail at your follow- up appointment, if applicable. Please Follow Up With: Arik Cohen DO When: 1 week. Please Follow Up With: Barbra Flores DO When: 1 week. Please Follow Up With: Man Cha MD When: 3-5 days after Discharge Proposed Discharge Date: 10/07/20
--- NOTE | 2020-10-07 19:16 | PCM.DC.SUM ---
Discharge Date and Diagnosis Date of Admission: 10/07/20 Date of Discharge: 10/07/20 - Secondary Discharge Diagnosis Chronic Problems: Chronic Problems (Last Reviewed 10/07/20 @ 16:[address] 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) Venous stasis dermatitis (Chronic) Atrial fibrillation (Chronic) Hypertension (Chronic) Chronic diastolic congestive heart failure (Chronic) Diabetes mellitus (Chronic) Gout (Chronic) Hypomagnesemia (Chronic) Overactive bladder (Chronic) Hypokalemia (Chronic) Atrial flutter (Chronic) Hyperlipidemia (Chronic) Essential hypertension (Chronic) Paroxysmal atrial fibrillation (Chronic) COPD (chronic obstructive pulmonary disease) (Chronic) Chronic diastolic heart failure (Chronic) Hospital Course and Treatment Imaging Results: 10/04/20 13:29 Diet: Cardiac - Heart Healthy Food consistency:: Regular Liquid Consistency:: Regular/Thin Dietary Modifications:: Cardiac / Heart Healthy Is pt able to select menu?: Yes Diet Comments: 1800 calorie Diet Clinical Impression(s) from Imaging Studies KUB X-Ray 10/06/20 07:23 IMPRESSION: Nonspecific bowel gas pattern. Electronically Signed: Saul Maldonado MD at 8:51 EST Tel , Service support , Chest X-Ray 10/06/20 14:16 IMPRESSION: Poor inspiration with some bibasilar atelectasis. Right upper extremity PICC which is unchanged. Electronically Signed: Saul Maldonado MD at 14:46 EST Tel , Service support , ADDENDUM: 10/06/20 1608 Labs (Last 48 Hours) 10/05/20 10/06/20 10/06/20 05:18 06:02 06:06 PT INR Sodium 133 L Potassium 4.8 Chloride 100 Carbon Dioxide 28.0 Anion Gap 5 BUN 60 H Creatinine 2.56 H Estim Creat Clear Calc 22.25 Est GFR (MDRD) Af Amer 31 L Est GFR (MDRD) Non-Af 26 L BUN/Creatinine Ratio 23.4 H Glucose 135 H Calcium 8.9 COVID-19 ([facility]HEL) Not Detected POC Glucose 142 H 10/07/20 10/07/20 10/07/20 05:30 05:30 06:19 PT 21.0 H INR 1.9 Sodium 130 L Potassium 5.5 H Chloride 99 Carbon Dioxide 24.0 Anion Gap 7 BUN 68 H Creatinine 2.85 H Estim Creat Clear Calc 19.98 Est GFR (MDRD) Af Amer 28 L Est GFR (MDRD) Non-Af 23 L BUN/Creatinine Ratio 23.9 H Glucose 148 H Calcium 8.5 COVID-19 (RAHEL) POC Glucose 148 H 10/07/20 10/07/20 13:42 18:21 PT INR Sodium Potassium Chloride Carbon Dioxide Anion Gap BUN Creatinine Estim Creat Clear Calc Est GFR (MDRD) Af Amer Est GFR (MDRD) Non-Af BUN/Creatinine Ratio Glucose Calcium COVID-19 ([facility]HEL) POC Glucose 133 H 137 H Operations: None, - - OR 10/02/[address] Cohen for I&D and poly exchange. Procedures: None Summary of Care Provided: The patient is a 80 year old Male with below past medical history hospitalized for Pseudomonas prosthetic joint infection right knee, underwent incision & drainage, polyethylene exchange 10/02/2020, admitted to TCU with debility, here for rehabilitation, strengthening, intravenous antibiotics, wound care, prior to discharge home with . 10/07/2020 Resident had change in mental status, worsening acute on chronic kidney failure, hyperkalemia, worsening hypoxia, worsening right prosthetic knee infection (Right knee draining blood). Discharge to [facility] Emergency Department for evaluation, admission to [facility]. - Physical Exam Vitals/I&O's: Vital Signs Temp Pulse Resp BP Pulse Ox 97.4 F L 68 18 134/79 H 95 10/07/20 06:59 10/07/20 07:03 10/07/20 06:59 10/07/20 07:03 10/07/20 06:59 Oxygen Flow Rate (L/min) 4 Oxygen Delivery Method Nasal Cannula Weight: 115.212 kg Body Mass Index (BMI) 37.5 Finger Stick Blood Glucose 196 Intake and Output for Last 24 Hours 10/05/20 10/06/20 10/07/20 23:59 23:59 23:59 Intake Total 680 / 680 920 / 920 1000 / 1000 Output Total 50 / 50 Balance 680 / 680 870 / 870 1000 / 1000 Laboratory Results 10/07/20 05:30: PT 21.0 H, INR 1.9 10/07/20 05:30: Sodium 130 L, Potassium 5.5 H, Chloride 99, Carbon Dioxide 24.0, Anion Gap 7, BUN 68 H, Creatinine 2.85 H, Estim Creat Clear Calc 19.98, Est GFR (MDRD) Af Amer 28 L, Est GFR (MDRD) Non-Af 23 L, BUN/Creatinine Ratio 23.9 H, Glucose 148 H, Calcium 8.5 10/07/20 06:19: POC Glucose 148 H 10/07/20 13:42: POC Glucose 133 H 10/07/20 18:21: POC Glucose 137 H Current Medications Acetaminophen (Acetaminophen 500 Mg Tablet) 1,000 mg PO Q6H PRN PRN PRN Reason: Pain Score 1-3 Last Admin: 10/06/20 19:42 Dose: 1,000 mg Documented by: Al Hydroxide/Mg Hydroxide (Mag Hydrox/Al Hydrox/Simeth 30 Ml Udc) 30 ml PO Q6H PRN PRN PRN Reason: Gastric Burning Allopurinol (Allopurinol 300 Mg Tablet) 300 mg PO DAILY [facility] Last Admin: 10/07/20 07:04 Dose: 300 mg Documented by: Amlodipine Besylate (Amlodipine 5 Mg Tablet) 5 mg PO DAILY [facility] Last Admin: 10/07/20 07:03 Dose: 5 mg Documented by: Bisacodyl (Bisacodyl 10 Mg Suppository) 10 mg RC DAILY PRN PRN Reason: Constipation Famotidine (Famotidine 20 Mg Tablet) 20 mg PO DAILY [facility] Last Admin: 10/07/20 07:03 Dose: 20 mg Documented by: Furosemide (Furosemide 40 Mg Tablet) 40 mg PO DAILY [facility] Last Admin: 10/07/20 07:03 Dose: 40 mg Documented by: Cefepime HCl 2 gm/ Sodium (Chloride) 100 mls @ 200 mls/hr IV DAILY [facility] Stop: 11/13/20 06:01 Magnesium Chloride (Magnesium Chloride 64 Mg Delay Rel.Tablet) 64 mg PO DAILY [facility] Last Admin: 10/07/20 07:04 Dose: 64 mg Documented by: Magnesium Hydroxide (Magnesium Hydroxide 30 Ml Udc) 30 ml PO DAILY PRN PRN Reason: Constipation Last Admin: 10/05/20 18:19 Dose: 30 ml Documented by: Melatonin (Melatonin 3 Mg Tablet) 3 mg PO QHS PRN PRN PRN Reason: INSOMNIA Metoprolol Succinate (Metoprolol(Xl)Succ 100 Mg Tablet) 100 mg PO DAILY [facility] Last Admin: 10/07/20 07:03 Dose: 100 mg Documented by: Multivitamins (Vitamin B Comp W-C Capsule) 1 capsule PO DAILY [facility] Last Admin: 10/07/20 07:03 Dose: 1 capsule Documented by: Nutritional Formula (Lactose Free) (Glucerna Shake 120 Ml Liquid) 120 ml PO TIDCM [facility] Last Admin: 10/07/20 17:25 Dose: Not Given Documented by: Oxycodone HCl (Oxycodone 5 Mg Tablet) 5 mg PO Q4H PRN PRN PRN Reason: Pain Score 4-10 Last Admin: 10/07/20 01:20 Dose: 5 mg Documented by: Polyethylene Glycol (Polyethylene Glycol 3350 17 Gm Packet) 17 gm PO DAILY [facility] Last Admin: 10/07/20 07:04 Dose: Not Given Documented by: Senna/Docusate Sodium (Senna/Docusate Sodium 1 Tablet) 2 tablet PO BID [facility] Last Admin: 10/07/20 17:25 Dose: Not Given Documented by: Tolterodine Tartrate (Tolterodine Tartrate 2 Mg Cap.Sa) 2 mg PO DAILY [facility] Last Admin: 10/07/20 07:03 Dose: 2 mg Documented by: Tuberculin PPD (Tuberculin,Purif.Prot.Deriv. 50 Tu/Ml Vial) 5 tu ID [id number] Stop: 10/12/20 10:01 Warfarin Sodium (Jantoven 2 Mg Tablet) 2 mg PO DAILY@1700 [facility] Last Admin: 10/07/20 17:25 Dose: Not Given Documented by: Discharge Diet: No Restrictions Discharge Activity: Return to Normal Activity, May Shower, Use Walker Weight Bearing Status: Weight bearing as tolerated Call your doctor if you observe: Fever of 101 or Higher, Inability to urinate, Inability to have a bowel movement, Shortness of breath, Chest pain, Uncontrolled pain Home Medications: Medications to take at Discharge metFORMIN HCl [Glucophage] 500 mg PO BID 07/23/15 Amlodipine [Norvasc] 5 mg PO DAILY 03/21/18 Metoprolol(XL)Succ [Toprol Xl (Beta Zeina)] 100 mg PO DAILY 02/20/19 allopurinol 300 mg tablet 300 mg PO DAILY 02/27/19 magnesium 250 mg tablet 250 mg PO DAILY 02/28/19 oxybutynin chloride 5 mg tablet,extended release 24 hr 5 mg PO BID tab 07/23/20 furosemide 40 mg tablet 40 mg PO BID tab 09/19/20 potassium chloride 20 mEq tablet,extended release(part/cryst) 20 meq PO BID tab 09/19/20 Vitamin B Complex 1 tab PO DAILY 09/30/20 Warfarin Sodium 2 mg PO DAILY 09/30/20 Acetaminophen [Tylenol Tablet] 650 mg PO Q6H PRN PRN tab 10/04/20 Cefepime HCl [Maxipime] 2 gm IV Q8 10/04/20 Famotidine [Pepcid] 20 mg PO DAILY 10/04/20 Insulin Lispro [Humalog KwikPen] See Protocol SC ACHS 10/04/20 Mag Hydrox/Al Hydrox/Simeth [Mylanta II] 30 ml PO Q6H PRN PRN udc 10/04/20 Melatonin 3 mg PO QHS PRN PRN tab 10/04/20 Oxycodone [Oxyir] 5 mg PO Q4H PRN PRN 5 Days #20 tab 10/04/20 Senna/Docusate Sodium [Senokot-S] 2 tab PO BID PRN PRN tab 10/04/20 Primary Care Physician: Man Cha MD [Primary Care Provider] - Please follow up with your Primary Care Physician in: 1 week. Please Follow Up With: Arik Cohen DO When: 1 week. Please Follow Up With: Barbra Flores DO When: 1 week. Please Follow Up With: Man Cha MD When: 3-5 days after Discharge Disposition: Acute care Hospital Minutes spent on discharge:: 30 Patient Condition:: Guarded Medical Necessity - Tobacco Use Smoking Status: Current every day smoker Tobacco Use: Cigarettes, Pipe Meaningful Use Info Meaningful Use Diagnoses (Choose all that apply): None applicable
[2020-10-08 10:27] VITALS: O2SAT 96
--- NOTE | 2020-10-15 09:45 | MDS.RN ---
Information for the mds was obtained from review of the clinical record, interview of resident, staff, and direct observation of resident's care.
== END 2020-10-07 09:04 | disposition short-term general hospital (02) | DRG 949 ==
PROVIDERS: Admitting Provider Family Medicine Geriatric Medicine; PCP Family Medicine; Visit Provider Family Medicine Geriatric Medicine
DX: T84.53XD Infection and inflammatory reaction due to internal right knee prosthesis, subsequent encounter (principal); I50.32 Chronic diastolic (congestive) heart failure; I13.0 Hypertensive heart and chronic kidney disease with heart failure and stage 1 through stage 4 chronic kidney disease, or unspecified chronic kidney disease; N17.9 Acute kidney failure, unspecified; Y83.1 Surgical operation with implant of artificial internal device as the cause of abnormal reaction of the patient, or of later complication, without mention of misadventure at the time of the procedure; E78.5 Hyperlipidemia, unspecified; M19.90 Unspecified osteoarthritis, unspecified site; I48.0 Paroxysmal atrial fibrillation; J44.9 Chronic obstructive pulmonary disease, unspecified; M10.9 Gout, unspecified; F17.210 Nicotine dependence, cigarettes, uncomplicated; E11.40 Type 2 diabetes mellitus with diabetic neuropathy, unspecified; K21.9 Gastro-esophageal reflux disease without esophagitis; N32.81 Overactive bladder; E11.22 Type 2 diabetes mellitus with diabetic chronic kidney disease; N18.9 Chronic kidney disease, unspecified; E87.6 Hypokalemia; E53.9 Vitamin B deficiency, unspecified; E87.5 Hyperkalemia; R09.02 Hypoxemia; R41.82 Altered mental status, unspecified
CPT/HCPCS: 71045; 71046; 74018; 80048; 82962; 85025; 85610; 85652; 87635; 97110; 97163; 97167; 99406; J7030; U0005; A4216; U0003

== ENCOUNTER 2020-10-07 08:22 | Inpatient (IN) | payer MEDICARE, OTHER, SELFPAY ==
[2020-10-04 13:04] VITALS: BMI 37.5
[2020-10-07] VITALS (15 sets, daily range): BP systolic 122–151; BP diastolic 76–99; PULSE 62–107; RESP 16–20; TEMP 36.2–36.7; O2SAT 91–97; BMI 38.9; BMI 38.4
--- NOTE | 2020-10-07 08:34 | RAD_ITS ---
STUDY: X-RAY CHEST REASON FOR EXAM: Male, 80 years old. altered mental status, sob. 94 on 4L per tcu staff. rt knee infection TECHNIQUE: Single AP portable view of the chest. COMPARISON: 10/06/2020 FINDINGS: Right upper extremity PICC which is unchanged. Poor inspiration with some bibasilar atelectasis. There is no demonstrated pleural abnormality. There is moderate cardiac enlargement. Normal mediastinum and amauri. Normal visualized pulmonary arteries. Normal visualized aortic arch and descending thoracic aorta. Normal visualized thoracic spine. Status post left shoulder reverse arthroplasty. There is no demonstrated abnormality of the visualized soft tissue structures of the upper abdomen. RAD/Chest 1 View (Portable) IMPRESSION: Poor inspiration with some bibasilar atelectasis. Electronically Signed: Saul Maldonado MD at 8:59 EST Tel , Service support ,
--- NOTE | 2020-10-07 08:34 | EKG12_ITS ---
Test Reason : ALTERED MENTAL Blood Pressure : / mmHG Vent. Rate : 079 BPM Atrial Rate : 076 BPM P-R Int : 000 ms QRS Dur : 098 ms QT Int : 410 ms P-R-T Axes : 000 024 085 degrees QTc Int : 470 ms Atrial fibrillation Low voltage QRS Nonspecific T wave abnormality Prolonged QT Abnormal ECG Confirmed by BHARTI LOPES, LAURA ([id number]), video news editor NANCY CALDERON ([id number]) on 10/10/2020 1:39:35 PM Referred By: ELINA Confirmed By:LAURA HAY MD
--- NOTE | 2020-10-07 08:40 | ED.DCSUM_ITS ---
- ER Visit Summary Date of Service: 10/07/20 Chief Complaint: Shortness of breath History of Present Illness: The patient is a 80 M presenting from TCU for shortness of breath and altered mental status. Patient states he has been short of breath over the last few days. He was admitted to the hospital on 09/30/2020 for septic knee. He had surgery per Dr. Cohen. He was transferred to TCU on 10/04/2020. He denies chest pain. Denies recent fever. Physical Examination: Vitals are stable. Patient is afebrile. Alert no acute distress. Pulse ox 95% on nasal cannula HEENT exam is unremarkable. Neck is supple. Lungs are diminished bilaterally. Heart is irregularly irregular Abdomen is soft nontender nondistended. Extremities right knee dressing clean dry and intact Skin is warm and dry. No focal neurologic deficit. Remainder of exam is unremarkable. Emergency Department Course and Treatment: Patient falls asleep frequently during exam but answers questions appropriately when awakened. Chest x-ray read by myself and radiology shows poor inspiration with some bibasilar atelectasis. CBC shows white count 14.4, hemoglobin 10.9, platelet 455. Chemistries show sodium 130, potassium 5.8, glucose 141, BUN 69, creatinine 3.03. Troponin 0.076. D-dimer is elevated. Upon further review patient is on Coumadin and INR this morning was 1.9. Rapid Covid is negative. Patient remains hemodynamically stable. He is alert and answers questions appropriately. Will discuss with the hospitalist for admission Disposition: Admission Impression: Dyspnea, LUIS EDUARDO, recent septic knee This note was generated with [employer] dictation software. It may contain incorrect words, spelling, and punctuation that were not noted in review of the chart prior to signing ED Disposition - Plan for ED Patient: Referrals: Man Cha MD [Primary Care Provider] -
[2020-10-07 08:47] LABS: Absolute Lymphocyte Count 0.67 X10^3/uL (0.83-4.51); Absolute Neutrophil Count 12.1 X10^3/uL (2.0-7.7); Basophil# 0.08 X10^3/uL; Basophil% 0.6 % (0-1); Eosinophil# 0.04 X10^3/uL; Eosinophils% 0.3 % (0-5); Hematocrit 33.8 % (40-54); Hemoglobin 10.9 g/dL (13.0-16.5); Lymphocyte # 0.67 X10^3/ul (4.0); Lymphocyte % 4.7 % (19-41); Mean Corp Hgb Conc 32.2 g/dL (32-36); Mean Corpuscular Hgb 31.8 pg (27.0-32.0); Mean Corpuscular Volume 98.5 fL (80-94); Mean Platelet Vol. 8.9 fl (6.2-12.0); NRBC Flagged by Analyzer 0.1 % (0-5); Neutrophil # 12.06 X10^3/uL (2.7-7.7); Neutrophil % 83.7 % (47-70); Platelet Count 455 K/mm3 (150-450); RBC Distribution Width CV 14.4 % (11.6-14.6); RBC Distribution Width SD 52.2 fl (35.1-43.9); Red Blood Count 3.43 M/mm3 (4.6-6.2); White Blood Count 14.4 K/mm3 (4.4-11.0)
[2020-10-07 09:01] LABS: ALB/GLOB Ratio 0.7 RATIO (0.9-2.4); AST(SGOT) 52 U/L (15-37); Alanine Aminotransfer ALT/SGPT 49 U/L (16-61); Albumin, Serum 2.9 g/dL (3.2-5.0); Alkaline Phosphatase 184 U/L (45-117); Anion Gap 6 (5-15); BUN 69 mg/dL (7-18); BUN/Creat Ratio 22.8 RATIO (10-20); Calcium,Total 8.6 mg/dL (8.5-10.1); Chloride 99 mmol/L (98-107); Creatinine, Serum 3.03 mg/dL (0.70-1.30); EST Glomerular Filtration Rate 21 mL/min (>60); Est Glom Filt Rate - Afr Amer 26 mL/min (>60); Estimated Creatinine Clearance 19.41 ml/min; Glucose 141 mg/dL (74-106); Lactic Acid 1.3 mmol/L (0.4-1.9); Potassium 5.8 mmol/L (3.5-5.1); Protein, Total 6.9 g/dL (6.4-8.2); Sodium Level 130 mmol/L (136-145)
[2020-10-07 09:08] LABS: BNP,B-Type NATRIURETIC PEPTIDE 854.4 pg/mL (0-100)
[2020-10-07 09:11] LABS: Allen Test Positive; Base Excess -1 mmol/L (-2 to +2); Bicarbonate 26.1 mmol/L (22-26); Blood Gas Specimen Type ART; O2 Delivery Device Cannula; PO2 92 mmHG (75-100); SITE L Radial; SO2 96 % (95-99); Total Carbon Dioxide 28 mmol/L; pCO2 55.7 mmHg (35-45); pH 7.28 (7.35-7.45)
[2020-10-07 09:29] LABS: D-Dimer Quantitative (DVT/PE) 4.33 FEU/ug/m (0.27-0.49)
--- NOTE | 2020-10-07 11:17 | ECHOD_ITS ---
Reason For Study: ELEVATED TROPONIN Procedure This was a limited 2D transthoracic echocardiogram. The study was technically limited. Limited views were obtained. Pt is confused with involuntary jerks/movements. Unable to aide with image improvement by holding breath. Exam performed portable in patient room. Left Ventricle Normal LV size. The estimated ejection fraction is 50 %. No regional wall motion abnormalities noted. Right Ventricle Normal RV size. Normal systolic function. Atria The left atrium is mildly enlarged. The right atrium is not well visualized. Mitral Valve Normal mitral valve. Tricuspid Valve Normal tricuspid valve. Mild to moderate (1-2+) tricuspid valve insufficiency. Pulmonary artery systolic pressure is 42 mmHg. Aortic Valve Trisinus/trileaflet aortic valve. Pulmonic Valve The pulmonic valve is not well visualized. Great Vessels Normal aortic root. Pericardium/Pleural No pericardial effusion. Small left pleural effusion. MMode/2D Measurements & Calculations LVIDd: 4.4 cm IVSd: 1.4 cm Ao root diam: 3.8 cm LVIDs: 3.7 cm LVPWd: 1.5 cm RVDd: 4.0 cm FS: 15.7 % LA dimension(2D): 4.3 cm RA A4 area: 24.3 cm2 Time Measurements MV dec time: 0.22 sec Doppler Measurements & Calculations MV E max mary: 104.0 cm/sec PA V2 max: 65.4 cm/sec TR max mary: 309.1 cm/sec TR max P.2 mmHg Interpretation Summary Pulmonary artery systolic pressure is 42 mmHg. Normal LV size. The estimated ejection fraction is 50 %. Contrast injection was performed. The study was technically limited. The study was technically difficult. Ordering Physician: Donnie Billings Referring Physician: SHARON ORTEGA Performed By: Jennifer Adair, JUDE, RVT
--- NOTE | 2020-10-07 11:44 | CASEMGMT ---
Patient came from [facility]. SW will verify that his plan is to return to TCU. Seble SPENCER MSW
--- NOTE | 2020-10-07 12:06 | CASEMGMT ---
LW/General POA forms both in echart, will be printed and placed in chart to be scanned into summary tab at discharge. Milagro Floyd is listed as General POA, and this document does include some healthcare provisions as well. NOBLE Bunch
[2020-10-07] MEDS: Sodium Polystyrene Sulfonate 15 GM/60 ML UDC PO (13:34)
--- NOTE | 2020-10-07 16:15 | HP.PCM_ITS ---
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 Qualifiers: Encounter type: subsequent encounter Qualified Code(s): T84.53XD - Infection and inflammatory reaction due to internal right knee prosthesis, subsequent encounter (9) Venous stasis dermatitis Status: Chronic (10) Atrial fibrillation Status: Chronic (11) Hypertension Status: Chronic (12) Chronic diastolic congestive heart failure Status: Chronic (13) Diabetes mellitus Status: Chronic (14) Gout Status: Chronic (15) Hypomagnesemia Status: Chronic (16) Overactive bladder Status: Chronic (17) Hypokalemia Status: Chronic (18) Atrial flutter Status: Chronic Qualifiers: (19) Hyperlipidemia Status: Chronic Qualifiers: (20) Essential hypertension Status: Chronic (21) Paroxysmal atrial fibrillation Status: Chronic (22) COPD (chronic obstructive pulmonary disease) Status: Chronic (23) Chronic diastolic heart failure Status: Chronic History of Present Illness Date of Admission: 10/07/20 Chief Complaint: dyspnea The patient is a 80 year old M who is at the transitional care unit for right septic knee presents with increasing shortness of breath and change in mental status. Patient is confused and unable to provide any history so history is obtained through the emergency room physician. In the emergency room, patient had abnormal blood work with a potassium of 5.8, worsening creatinine of 3.03, D-dimer of 4.33, troponin elevation of 0.076 and white count elevation of 14.4. [] Past Medical History Past Medical History (Chronic Problems): Chronic Problems (Last Reviewed 09/19/20 @ 09:29 by Mey Holloway PA, PA) Septic arthritis of knee, right (Chronic) Debility (Chronic) Infection of prosthetic right knee joint (Chronic) Venous stasis dermatitis (Chronic) Atrial fibrillation (Chronic) Hypertension (Chronic) Chronic diastolic congestive heart failure (Chronic) Diabetes mellitus (Chronic) Gout (Chronic) Hypomagnesemia (Chronic) Overactive bladder (Chronic) Hypokalemia (Chronic) Atrial flutter (Chronic) Hyperlipidemia (Chronic) Essential hypertension (Chronic) Paroxysmal atrial fibrillation (Chronic) COPD (chronic obstructive pulmonary disease) (Chronic) Chronic diastolic heart failure (Chronic) Medical History: Medical History (Last Reviewed 10/07/20 @ 16:[address] Donnie Billings, DO) Atrial flutter (Chronic) I48.92 Hyperlipidemia (Chronic) E78.5 Essential hypertension (Chronic) I10 Paroxysmal atrial fibrillation (Chronic) I48.0 COPD (chronic obstructive pulmonary disease) (Chronic) J44.9 Chronic diastolic heart failure (Chronic) I50.32 Anticoagulated on Coumadin Z79.01 Colon polyps K63.5 Diabetic neuropathy E11.40 Gout M10.9 History of spinal stenosis Z87.39 OAB (overactive bladder) N32.81 Osteoarthritis M19.90 Type 2 diabetes mellitus without complication E11.9 Acute hemorrhagic colitis (Resolved) K52.9 Black tarry stools (Resolved) K92.1 Kidney stones N20.0 Rectal bleeding (Resolved) K62.5 Right rotator cuff tear arthropathy M75.101, M12.811 Allergies No Known Allergies Allergy (Verified 10/07/20 08:35) Home Medications: Ambulatory Orders Medication Instructions Recorded metFORMIN HCl [Glucophage] 500 mg PO BIDCM 07/23/15 Amlodipine [Norvasc] 5 mg PO DAILY 03/21/18 Metoprolol(XL)Succ [Toprol Xl 100 mg PO DAILY 02/20/19 (Beta Zeina)] allopurinol 300 mg tablet 300 mg PO DAILY 02/27/19 magnesium 250 mg tablet 250 mg PO DAILY 02/28/19 oxybutynin chloride 5 mg 5 mg PO BID tab 07/23/20 tablet,extended release 24 hr furosemide 40 mg tablet 40 mg PO BID tab 09/19/20 potassium chloride 20 mEq 20 meq PO BID tab 09/19/20 tablet,extended release(part/cryst) Vitamin B Complex 1 tab PO DAILY 09/30/20 Warfarin Sodium 2 mg PO DAILY 09/30/20 Acetaminophen [Tylenol Tablet] 650 mg PO Q6H PRN PRN tab 10/04/20 Cefepime HCl [Maxipime] 2 gm IV Q8 10/04/20 Famotidine [Pepcid] 20 mg PO DAILY 10/04/20 Insulin Lispro [Humalog KwikPen] See Protocol SC ACHS 10/04/20 Mag Hydrox/Al Hydrox/Simeth 30 ml PO Q6H PRN PRN udc 10/04/20 [Mylanta II] Melatonin 3 mg PO QHS PRN PRN tab 10/04/20 Oxycodone [Oxyir] 5 mg PO Q4H PRN PRN 5 Days #20 tab 10/04/20 Senna/Docusate Sodium [Senokot-S] 2 tab PO BID PRN PRN tab 10/04/20 Surgical History: Surgical History (Last Reviewed 10/07/20 @ 16:[address] Donnie Billings DO) History of back surgery Z98.890 History of bilateral knee replacement Z96.653 History of carpal tunnel release of both wrists Z98.890 Hx of shoulder surgery Z98.890 Left Hx of umbilical hernia repair Z98.890, Z87.19 Surgical History: herniorrhaphy - Umbilical., total knee arthroplasty - Bilateral., - - Right wrist fracture, Kidney stones, Bilateral carpal tunnel release, back surgery. Psychiatric History: No pertinent psych hx Smoking Status: Current every day smoker - *Family History Maternal Family History: Family History (Last Reviewed 10/07/20 @ 16:[address] Donnie Billings DO) Brother Diabetes Sister Cancer Grandfather Heart disease Sister Alzheimers disease Sister Parkinson disease History Items: No pertinent history Paternal Family History: Family History (Last Reviewed 10/07/20 @ 16:[address] Donnie iBllings DO) Brother Diabetes Sister Cancer Grandfather Heart disease Sister Alzheimers disease Sister Parkinson disease History Items: No pertinent history Sibling Family History: Family History (Last Reviewed 10/07/20 @ 16:[address] Donnie Billings DO) Brother Diabetes Sister Cancer Grandfather Heart disease Sister Alzheimers disease Sister Parkinson disease History Items: Cancer, Diabetes, Heart Disease Review of Systems Comment: Patient confused and unable to provide any history VTE Information - Inpt Only VTE Present on Admission: No VTE Mechan Device Prophylaxis: None VTE Pharm Prophylaxis ordered?: No Reason prophylaxis not ordered:: Treatment Not Indicated - Physical Exam Vitals/I&O's: Vital Signs Temp Pulse Resp BP Pulse Ox 36.4 C L 66 18 126/76 H 93 10/07/20 12:45 10/07/20 14:40 10/07/20 12:45 10/07/20 12:45 10/07/20 14:40 Oxygen Flow Rate (L/min) 3 Oxygen Delivery Method Nasal Cannula Weight: 123 kg Body Mass Index (BMI) 38.9 Finger Stick Blood Glucose 196 General: Confused HEENT: Atraumatic, Normocephalic Oral: Moist Mucosa, No Gingival or Mucosal Lesions/ Ulcerations Neck: No Nodes, Thyroid Normal Size and Texture Lungs: Normal air movement, - - Coarse breath sounds bilaterally Cardiovascular: Regular rate, Regular Rhythm, Normal S1, Normal S2, No murmurs Abdomen: Bowel Sounds Present, Soft, Non Tender, Non-Distended, No Hepato- splenomegaly Extremities: No edema, No Calf Tenderness Skin: Ulcer/ Wound, - - The incision is well approximated. Some blood noted medially but no hematoma noted. Musculoskeletal: No Muscle Wasting Neurological: Muscle tone normal, - - No clonus Psych/Mental Status: Agitated, - - Confused Microbiology Past 72 Hours 10/07/20 08:40 Mucosa - Nose SARS-CoV-2 Antigen (Rapid) - Final Laboratory Results 10/07/20 08:25: WBC 14.4 H, RBC 3.43 L, Hgb 10.9 L, Hct 33.8 L, MCV 98.5 H, MCH 31.8, MCHC 32.2, RDW Std Deviation 52.2 H, RDW Coeff of [place] 14.4, Plt Count 455 H, MPV 8.9, Immature Gran % (Auto) 1.700 H, Neut % (Auto) 83.7 H, Lymph % (Auto) 4.7 L, [place] % (Auto) 9.0, Eos % (Auto) 0.3, Baso % (Auto) 0.6, Absolute Neuts (auto) 12.1 H, Absolute Lymphs (auto) 0.67 L, Nucleated RBC % 0.1 10/07/20 08:25: D-Dimer Quant (PE/DVT) 4.33 H* 10/07/20 08:25: Sodium 130 L, Potassium 5.8 H, Chloride 99, Carbon Dioxide 25.0, Anion Gap 6, BUN 69 H, Creatinine 3.03 H, Estim Creat Clear Calc 19.41, Est GFR (MDRD) Af Amer 26 L, Est GFR (MDRD) Non-Af 21 L, BUN/Creatinine Ratio 22.8 H, Glucose 141 H, Calcium 8.6, Total Bilirubin 1.20 H, AST 52 H, ALT 49, Alkaline Phosphatase 184 H, Troponin I 0.076 H, Total Protein 6.9, Albumin 2.9 L, Globulin 4.0, Albumin/Globulin Ratio 0.7 L 10/07/20 08:25: Lactic Acid 1.3 10/07/20 08:25: B-Natriuretic Peptide 854.4 H 10/07/20 09:00: Specimen Type ART, Sample Site L Radial, pH 7.28 L, Bicarbonate Actual 26.1 H, Total CO2 28, Base Excess -1, O2 Saturation 96, ABG pCO2 55.7 H, ABG pO2 92, Foster Test Positive, O2 Delivery Device Cannula, Liter Flow 3.0 10/07/20 12:20: Troponin I 0.075 H 10/07/20 14:40: Troponin I 0.074 H Echo reviewed and showed pulmonary artery systolic pressure of 42 mmHg. Normal LV size. EF of 50%. Chest x-ray poor quality due to poor inspiratory effort increased lung markings as compared to previous. Current Medications Al Hydroxide/Mg Hydroxide (Mag Hydrox/Al Hydrox/Simeth 30 Ml Udc) 30 ml PO Q6H PRN PRN PRN Reason: Gastric Burning Allopurinol (Allopurinol 100 Mg Tablet) 100 mg PO DAILYCM [facility] Amlodipine Besylate (Amlodipine 5 Mg Tablet) 5 mg PO DAILY [facility] Heparin Sodium (Beef Lung) (Heparin Pf Lock 10 Units/Ml 50 Units/5 Ml Syringe) 50 units IV UD PRN PRN Reason: PICC Line Heparin Flush Cefepime HCl 2 gm/ Sodium (Chloride) 100 mls @ 200 mls/hr IV Q12 DENIZ Stop: 11/13/20 22:29 Sodium Chloride () 250 mls @ 15 mls/hr IV .[id number] PRN PRN Reason: Saline Flush Sodium Chloride () 250 mls @ 15 mls/hr IV .[id number] PRN PRN Reason: Additional IVPB Infusion Insulin Human Lispro (Insulin Lispro 100 Unit/Ml Insuln.Pen) 0 unit SC ACHS [facility]; Protocol Last Admin: 10/07/20 13:43 Dose: Not Given Documented by: Melatonin (Melatonin 3 Mg Tablet) 3 mg PO QHS PRN PRN PRN Reason: INSOMNIA Metoprolol Succinate (Metoprolol(Xl)Succ 100 Mg Tablet) 100 mg PO DAILY [facility] Ondansetron HCl (Ondansetron 4 Mg/2 Ml Vial) 4 mg IV Q8H PRN PRN PRN Reason: NAUSEA/VOMITING Senna/Docusate Sodium (Senna/Docusate Sodium 1 Tablet) 2 tablet PO BID PRN PRN PRN Reason: Constipation Sodium Chloride (0.9% Saline Lock 10 Ml Syringe) 10 - 40 ml IV UD PRN PRN Reason: Open End PICC Flush Sodium Chloride (0.9 % Nacl (Sterile) Posiflush 10 Ml) 10 - 40 ml IV UD PRN PRN Reason: Port access or dressing change Tolterodine Tartrate (Tolterodine Tartrate 2 Mg Cap.Sa) 2 mg PO DAILY [facility] Warfarin Sodium (Jantoven 2 Mg Tablet) 2 mg PO DAILY@1700 [facility] Assessment/Plan All Active Problems (Last Reviewed 09/19/20 @ 09:29 by Mey Holloway PA, PA) Dyspnea (Acute) Elevated troponin (Acute) LUIS EDUARDO (acute kidney injury) (Acute) Hyperkalemia (Acute) Encephalopathy (Acute) Acute hemorrhagic colitis (Resolved) Black tarry stools (Resolved) Rectal bleeding (Resolved) 1. Acute kidney injury * And has been steadily going up since around October 02. At that time, his creatinine was 1.39 and now it is 3.03. * Check urine studies. * Hold furosemide, Metformin * Consider renal ultrasound if continues to worsen 2. Hyperkalemia * Likely secondary to acute kidney injury * Received Kayexalate * hold potassium 3. elevated troponin * EF down to 50% from 60% in 2018 * start ASA * slight elevation may be from LUIS EDUARDO and demand * consult cardiology for input 4. Encephalopathy * no focal deficits * may be from oxycodone, which is being held * check head CT to r/o acute process. 5. septic arthritis * pseudomonal * on cefepime * ID to continue to follow 6. dyspnea * has been on oxygen since 10/02 * wean oxygen as tolerated * CXR poor quality * already on abx for septic arthritis * previously negative for COVID 19 on the * consider diuresis as weight is up overall from 09/30, though I doubt the accuracy of the weight today (123kg). But will hold for now given worsening k idney function. 7. afib * continue warfarin * metoprolol succinate 8. DM2 * fair control at this time * hold metformin given LUIS EDUARDO * continue SSI 9. VTE prophylaxsi: * anticoagulation Advanced care planning: Spent an additional 16 minutes discussing with the patient's about advanced directives. Explained DNR Comfort Care arrest and full CODE STATUS with her. She would wish for him to be DNR Comfort Care arrest at this time. I did advise her that she could certainly change this decision at any point. Inpatient E&M: 71661 Init Hosp L3 Procedures: 21562 Advncd Care Plan 30 Min
--- NOTE | 2020-10-07 16:37 | CT_ITS ---
STUDY: CT BRAIN WITHOUT CONTRAST REASON FOR EXAM: Male, 80 years old. ENCEPHALOPATHY, ALTERED MENTAL STATUS, SEPSIS, A-FIB, CHF, COPD, HTN, DB RADIATION DOSAGE (If Supplied By Facility): CTDIvol = ( 44.99 ) mGy, DLP = ( 863.6 ) mGycm TECHNIQUE: Transaxial CT imaging of the brain was performed without administration of intravenous contrast material. Individualized dose optimization techniques were used for this CT. COMPARISON: No relevant priors. FINDINGS: Normal soft tissue structures. Normal calvarium. There is moderate cerebral atrophy with widening of the extra-axial spaces and ventricular dilatation. There are areas of decreased attenuation within the white matter tracts of the supratentorial brain, consistent with microvascular disease changes. There are small punctate calcifications of the basal ganglia which are seen in the aging brain as a normal variant. Normal brainstem. Normal cerebellum. There is no intracranial hemorrhage. There are no findings of an acute ischemic infarction. Normal visualized paranasal sinuses. CT/Brain/Head without Contrast IMPRESSION: Chronic involutional changes of the brain. Electronically Signed: Saul Maldonado MD at 17:37 EST Tel , Service support ,
--- NOTE | 2020-10-07 17:40 | CON.PCM_ITS ---
Reason for Consult Date of Consultation: 10/07/20 Reason for Consultation: Evaluation of cardiac status with abnormal cardiac enzymes History of Present Illness: The patient is a 80 year old M with a history of hypertension, paroxysmal atrial fibrillation who was recently admitted and underwent surgery for a septic knee. He was subsequently sent to the transitional care unit for recuperation. Today he was noted to be more confused and sent back to the emergency room where he had blood work performed which demonstrated an elevated creatinine, mildly elevated troponin necessitating admission to the progressive care unit. An echocardiogram was performed today which demonstrated an ejection fraction of approximately 50% with global hypokinesis which was a change from his previous echocardiogram of 60%. He was noted to be in atrial fibrillation and the above appears to be persistent at this time. He denies any chest pain or paroxysmal nocturnal dyspnea or pedal edema. He has had no neck arm or jaw discomfort to suggest angina. He is just coming back from CAT scan. He appears to be minimally confused. [] Past Medical History Allergies/Adverse Reactions: Allergies No Known Allergies Allergy (Verified 10/07/20 08:35) Home Medications: Ambulatory Orders Medication Instructions Recorded metFORMIN HCl [Glucophage] 500 mg PO BIDCM 07/23/15 Amlodipine [Norvasc] 5 mg PO DAILY 03/21/18 Metoprolol(XL)Succ [Toprol Xl 100 mg PO DAILY 02/20/19 (Beta Zeina)] allopurinol 300 mg tablet 300 mg PO DAILY 02/27/19 magnesium 250 mg tablet 250 mg PO DAILY 02/28/19 oxybutynin chloride 5 mg 5 mg PO BID tab 07/23/20 tablet,extended release 24 hr furosemide 40 mg tablet 40 mg PO BID tab 09/19/20 potassium chloride 20 mEq 20 meq PO BID tab 09/19/20 tablet,extended release(part/cryst) Vitamin B Complex 1 tab PO DAILY 09/30/20 Warfarin Sodium 2 mg PO DAILY 09/30/20 Acetaminophen [Tylenol Tablet] 650 mg PO Q6H PRN PRN tab 10/04/20 Cefepime HCl [Maxipime] 2 gm IV Q8 10/04/20 Famotidine [Pepcid] 20 mg PO DAILY 10/04/20 Insulin Lispro [Humalog KwikPen] See Protocol SC ACHS 10/04/20 Mag Hydrox/Al Hydrox/Simeth 30 ml PO Q6H PRN PRN udc 10/04/20 [Mylanta II] Melatonin 3 mg PO QHS PRN PRN tab 10/04/20 Oxycodone [Oxyir] 5 mg PO Q4H PRN PRN 5 Days #20 tab 10/04/20 Senna/Docusate Sodium [Senokot-S] 2 tab PO BID PRN PRN tab 10/04/20 Past Medical History (Chronic Problems): Chronic Problems (Last Reviewed 10/07/20 @ 16:[address] 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) Venous stasis dermatitis (Chronic) Atrial fibrillation (Chronic) Hypertension (Chronic) Chronic diastolic congestive heart failure (Chronic) Diabetes mellitus (Chronic) Gout (Chronic) Hypomagnesemia (Chronic) Overactive bladder (Chronic) Hypokalemia (Chronic) Atrial flutter (Chronic) Hyperlipidemia (Chronic) Essential hypertension (Chronic) Paroxysmal atrial fibrillation (Chronic) COPD (chronic obstructive pulmonary disease) (Chronic) Chronic diastolic heart failure (Chronic) Surgical History: herniorrhaphy - Umbilical., total knee arthroplasty - Bilateral., - - Right wrist fracture, Kidney stones, Bilateral carpal tunnel release, back surgery. Psychiatric History: No pertinent psych hx - *Family History Maternal Family History: Family History (Last Reviewed 10/07/20 @ 16:[address] Donnie Billings DO) Brother Diabetes Sister Cancer Grandfather Heart disease Sister Alzheimers disease Sister Parkinson disease History Items: No pertinent history Paternal Family History: Family History (Last Reviewed 10/07/20 @ 16:[address] Donnie Billings DO) Brother Diabetes Sister Cancer Grandfather Heart disease Sister Alzheimers disease Sister Parkinson disease History Items: No pertinent history Sibling Family History: Family History (Last Reviewed 10/07/20 @ 16:[address] Donnie Billings DO) Brother Diabetes Sister Cancer Grandfather Heart disease Sister Alzheimers disease Sister Parkinson disease History Items: Cancer, Diabetes, Heart Disease Smoking Status: Current every day smoker Review of Systems - Review of Systems General: Reports: Fatigue, Malaise. Denies: Fever, Night Sweats Cardiovascular: Denies: Chest Discomfort, Shortness of Breath, Orthopnea, PND, Peripheral Edema, Palpitations, Lightheadedness, Dizziness, Near Syncope, Syncope Respiratory: Denies: Cough, Sputum Production, Hemoptysis Gastrointestinal: Denies: Hematemesis, Hematochezia, Melena Genitourinary: Denies: Dysuria, Hematuria Skin: Denies: Rash Neurological: Reports: Confusion, Decreased Coordination Psychiatric: Denies: Anxiety Endocrine: Denies: Unexplained Weight Loss Hematologic/ Lymphatic: Reports: Anemia Subjectve: Elderly gentleman in no distress Objective: Vital Signs Temp Pulse Resp BP Pulse Ox 97.6 F L 66 18 126/76 H 93 10/07/20 12:45 10/07/20 14:40 10/07/20 12:45 10/07/20 12:45 10/07/20 14:40 Oxygen Flow Rate (L/min) 3 Oxygen Delivery Method Nasal Cannula Weight: 271 lb 2.697 oz Body Mass Index (BMI) 38.9 Finger Stick Blood Glucose 196 General: Awake, Alert, Oriented x 3 HEENT: PERRL, EOMI, Sclera Non Icteric Neck: Supple, Good ROM, No Lymph Node Enlargement Lungs: Clear to auscultation Cardiovascular: Irregular Rhythm, Normal S1, Normal S2, No Murmurs, No Rubs, No Gallops Vascular: No Carotid Bruits, Normal Femoral Pulses, Normal Radial Pulses, Normal Dorsalis Pedal Pulse, Normal Posterior Tibial Pulses Abdomen: Bowel Sounds Present, Soft, Non Tender, No HSM, No Organomegaly Extremities: No Cyanosis, No Clubbing, No edema Musculoskeletal: No Erythema Skin: No Rashes Neurological: No Focal Motor or Sensory Deficit 10/07/20 08:25: WBC 14.4 H, RBC 3.43 L, Hgb 10.9 L, Hct 33.8 L, MCV 98.5 H, MCH 31.8, MCHC 32.2, Plt Count 455 H, MPV 8.9, Immature Gran % (Auto) 1.700 H, Neut % (Auto) 83.7 H, Lymph % (Auto) 4.7 L, [place] % (Auto) 9.0, Eos % (Auto) 0.3, Baso % (Auto) 0.6, Absolute Neuts (auto) 12.1 H, Nucleated RBC % 0.1 10/07/20 08:25: D-Dimer Quant (PE/DVT) 4.33 H* 10/07/20 08:25: Sodium 130 L, Potassium 5.8 H, Chloride 99, Carbon Dioxide 25.0, Anion Gap 6, BUN 69 H, Creatinine 3.03 H, Est GFR (MDRD) Af Amer 26 L, Est GFR (MDRD) Non-Af 21 L, BUN/Creatinine Ratio 22.8 H, Glucose 141 H, Calcium 8.6, Total Bilirubin 1.20 H, Troponin I 0.076 H 10/07/20 08:25: Lactic Acid 1.3 10/07/20 08:25: B-Natriuretic Peptide 854.4 H 10/07/20 09:00: pH 7.28 L, Bicarbonate Actual 26.1 H, Base Excess -1, O2 Saturation 96, ABG pCO2 55.7 H, ABG pO2 92, [place] Test Positive 10/07/20 12:20: Troponin I 0.075 H 10/07/20 14:40: Troponin I 0.074 H Rhythm: EKG: Atrial fibrillation with a controlled ventricular response rate ECHO: Global left ventricular systolic dysfunction estimated EF 50% Stress Test: Cardiac Cath: PCI: CT Surgery: Holter monitor: EPS: PPM: CXR: Chest CT Scan: Assessment/Plan 1. Atrial fibrillation * The above appears to be rate controlled and is persistent at this time. Would recommend continuing anticoagulation with warfarin. At this time there are no plans to perform any DC cardioversion. * 2. Abnormal cardiac enzymes * Patient appears to have mildly abnormal cardiac enzymes. The above is likely secondary to demand ischemia though underlying coronary artery disease cannot be completely excluded. I would recommend that we obtain a pharmacologic myocardial perfusion stress test before he is discharged. * At this time no major testing will be undertaken. * 3. Left ventricular systolic dysfunction * He does have global left ventricular systolic dysfunction. 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 I would recommend that we continue him on the beta-zeina. He does not appear to be in overt heart failure though his natruretic peptide is elevated and his diuretics can be held for now for his renal function to improve. * I wonder whether he became globally amnestic because of hypotension. * Further elucidation of the etiology of his left ventricular systolic dysfunction would be made based on the results of his stress test in the next 24 to 48 hours. * * 4. Hypertension * His blood pressure appears to be normal for now and I will not recommend we make any other changes. He will continue on the amlodipine as well as the beta-zeina. * Thank you for allowing me to participate in the care of your patient. Please don't hesitate to call if any issues arise.
[2020-10-07] MEDS: Aspirin 325 MG Tablet PO (18:31)
[2020-10-07] MEDS: Jantoven 2 MG Tablet PO (18:32)
[2020-10-07 19:26] LABS: Bacteria 0 SEEN /hpf (None Seen); Mucous, Urine 0 SEEN /hpf (<or=2+); White Blood Cells 0 SEEN /hpf (0-5)
[2020-10-07 19:39] LABS: Anion Gap 6 (5-15); BUN 70 mg/dL (7-18); BUN/Creat Ratio 23.4 RATIO (10-20); Calcium,Total 8.9 mg/dL (8.5-10.1); Chloride 99 mmol/L (98-107); Creatinine, Serum 2.99 mg/dL (0.70-1.30); EST Glomerular Filtration Rate 22 mL/min (>60); Est Glom Filt Rate - Afr Amer 26 mL/min (>60); Estimated Creatinine Clearance 19.05 ml/min; Glucose 139 mg/dL (74-106); Potassium 5.1 mmol/L (3.5-5.1); Sodium Level 132 mmol/L (136-145)
[2020-10-07 19:40] LABS: Urea Nitrogen, Urine 316 mg/dL (NO RANGE EST.)
[2020-10-07 19:45] LABS: Color, Urine Yellow (Yellow); Glucose, Dipstick Normal (Normal); Ketone-Dipstick Negative (Negative); Leukocyte Esterase-Dipstick Negative /ul (Negative); Nitrite-Dipstick Negative (Negative); Occult Blood-Urine 50 /ul (Negative); Protein-Dipstick 30 mg/dl (Negative); Specific Gravity, Urine 1.015 (1.002-1.030); Urine Bilirubin Dipstick Negative (Negative); Urine Clarity Sl. Cloudy (Clear); Urine Urobilinogen Normal (Normal)
[2020-10-07 19:57] LABS: Red Blood Cells-Urine 0-5 SEEN /hpf (0-5); Squamous Epithelial Cells - UA 0-5 SEEN /hpf (0-5)
[2020-10-07 22:56] LABS: Bedside Glucose 181 mg/dL (70-110)
[2020-10-08] VITALS (10 sets, daily range): BP systolic 116–128; BP diastolic 74–88; PULSE 64–81; RESP 18–20; TEMP 36.1–36.3; O2SAT 94–95
--- NOTE | 2020-10-08 01:38 | NURSING ---
Pt. repeatedly kept pulling on catheter and yelling in pain. Urine was pink colored. When told to stop patient replied that it was a habit and continued to pull. See charting for catheter removal.
[2020-10-08 05:11] LABS: Absolute Neutrophil Count 15.9 X10^3/uL (2.0-7.7); Basophil# 0.06 X10^3/uL; Basophil% 0.3 % (0-1); Eosinophil# 0.04 X10^3/uL; Eosinophils% 0.2 % (0-5); Hemoglobin 10.7 g/dL (13.0-16.5); Lymphocyte % 3.3 % (19-41); Mean Corp Hgb Conc 31.5 g/dL (32-36); Mean Corpuscular Hgb 31.2 pg (27.0-32.0); Mean Corpuscular Volume 99.1 fL (80-94); Mean Platelet Vol. 9.1 fl (6.2-12.0); Monocyte# 1.46 X10^3/uL; NRBC Flagged by Analyzer 0.2 % (0-5); Neutrophil % 86.7 % (47-70); POSITIVE DIFFERENTIAL YES; Platelet Count 454 K/mm3 (150-450); RBC Distribution Width CV 14.5 % (11.6-14.6); RBC Distribution Width SD 52.2 fl (35.1-43.9); Red Blood Count 3.43 M/mm3 (4.6-6.2); White Blood Count 18.3 K/mm3 (4.4-11.0)
[2020-10-08 05:16] LABS: Differential Indicated SCAN CRITERIA MET
[2020-10-08 05:19] LABS: International Normalized Ratio 2.3; Prothrombin Time (Protime)PT. 24.7 SECONDS (11.7-14.9)
[2020-10-08 05:38] LABS: ALB/GLOB Ratio 0.6 RATIO (0.9-2.4); AST(SGOT) 52 U/L (15-37); Alanine Aminotransfer ALT/SGPT 43 U/L (16-61); Albumin, Serum 2.7 g/dL (3.2-5.0); Alkaline Phosphatase 185 U/L (45-117); Anion Gap 9 (5-15); BUN 77 mg/dL (7-18); BUN/Creat Ratio 22.8 RATIO (10-20); Calcium,Total 8.5 mg/dL (8.5-10.1); Chloride 102 mmol/L (98-107); Creatinine, Serum 3.38 mg/dL (0.70-1.30); EST Glomerular Filtration Rate 19 mL/min (>60); Est Glom Filt Rate - Afr Amer 23 mL/min (>60); Estimated Creatinine Clearance 16.85 ml/min; Globulin 4.2 g/dL (2.2-4.2); Glucose 155 mg/dL (74-106); Potassium 5.3 mmol/L (3.5-5.1); Protein, Total 6.9 g/dL (6.4-8.2); Sodium Level 133 mmol/L (136-145)
[2020-10-08 06:35] LABS: Bedside Glucose 138 mg/dL (70-110)
--- NOTE | 2020-10-08 07:42 | US_ITS ---
STUDY: RENAL ULTRASOUND - COMPLETE REASON FOR EXAM: Male, 80 years old. LUIS EDUARDO TECHNIQUE: Ultrasound evaluation of the kidneys was performed with real-time and static haines-scale imaging. COMPARISON: None. FINDINGS: RIGHT KIDNEY: Normal location of the right kidney, which is normal in size. The right kidney measures 12.5 cm. Increased echogenicity renal cortex consistent with chronic medical renal disease or advanced age. The renal cortex measures 1.4 cm. 4 cm cyst in the lower pole the right kidney. 1.8 cm cyst in the midsection right kidney. There are no right renal calculi. There is no right hydronephrosis. DISTAL RIGHT URETER: There is non-visualization of the distal right ureter. There is no demonstrated right ureterovesical junction calculus. There is a visualized right ureteral jet. LEFT KIDNEY: Not visualized. DISTAL LEFT URETER: Not visualized. BLADDER: The distended urinary bladder has a volume of 24 ml. The empty urinary bladder has a volume of ml. There is a normal wall thickness of the distended urinary bladder. There is no demonstrated mass within the urinary bladder. There are no demonstrated bladder calculi. Small amount of free fluid. US/Kidney and Bladder IMPRESSION: 1. Nonvisualization of the left kidney. 2. Chronic medical renal disease the right kidney but no hydronephrosis to suggest obstruction. 3. Small amount of ascites. 4. Left-sided pleural effusion. Electronically Signed: Saul Maldonado MD at 10:23 EST Tel , Service support ,
[2020-10-08] MEDS: amLODIPine 5 MG Tablet PO (08:23)
[2020-10-08] MEDS: Allopurinol 100 MG Tablet PO (08:23)
[2020-10-08] MEDS: Tolterodine Tartrate 2 MG CAP.SA PO (08:23)
[2020-10-08] MEDS: Aspirin 81 MG TAB.CHEW PO (08:23)
[2020-10-08] MEDS: Metoprolol(XL)Succ 100 MG Tablet PO (08:23)
[2020-10-08] MEDS: 0.9% Saline Lock 10 ML Syringe IV (08:37)
--- NOTE | 2020-10-08 10:44 | PCM.PN.ID ---
Patient Problems: Active and Suspected Problems (Last Reviewed 10/07/20 @ 16:[address] Donnie Billings, DO) Dyspnea (Acute) Elevated troponin (Acute) LUIS EDUARDO (acute kidney injury) (Acute) Hyperkalemia (Acute) Encephalopathy (Acute) - Physical Exam Vitals/I&O's: Vital Signs Temp Pulse Resp BP Pulse Ox 97.3 F L 65 20 H 122/84 H 94 10/08/20 08:19 10/08/20 08:23 10/08/20 08:19 10/08/20 08:23 10/08/20 08:19 Oxygen Flow Rate (L/min) 2 Oxygen Delivery Method Nasal Cannula Weight: 118.1 kg Body Mass Index (BMI) 38.4 Finger Stick Blood Glucose 196 Intake and Output for Last 24 Hours 10/06/20 10/07/20 10/08/20 23:59 23:59 23:59 Intake Total 340 / 340 Output Total 600 / 600 Balance 340 / -210 -600 / -600 Microbiology Past 72 Hours 10/07/20 08:40 Mucosa - Nose SARS-CoV-2 Antigen (Rapid) - Final Laboratory Results 10/07/20 12:20: Troponin I 0.075 H 10/07/20 14:40: Troponin I 0.074 H 10/07/20 18:30: Sodium 132 L, Potassium 5.1, Chloride 99, Carbon Dioxide 27.0, Anion Gap 6, BUN 70 H, Creatinine 2.99 H, Estim Creat Clear Calc 19.05, Est GFR (MDRD) Af Amer 26 L, Est GFR (MDRD) Non-Af 22 L, BUN/Creatinine Ratio 23.4 H, Glucose 139 H, Calcium 8.9 10/07/20 18:35: Urine Color Yellow, Urine Clarity Sl. Cloudy, Urine pH 5.0, Ur Specific Guin 1.015, Urine Protein 30 H, Urine Glucose (UA) Normal, Urine Ketones Negative, Urine Occult Blood 50 H, Urine Nitrite Negative, Urine Bilirubin Negative, Urine Urobilinogen Normal, Ur Leukocyte Esterase Negative, Urine RBC 0-5 SEEN, Urine WBC 0 SEEN, Ur Squamous Epith Cells 0-5 SEEN, Urine Bacteria 0 SEEN, Urine Mucus 0 SEEN 10/07/20 18:35: Urine Creatinine 39.80, Urine Urea Nitrogen 316 10/07/20 22:37: POC Glucose 181 H 10/08/20 05:00: WBC 18.3 H, RBC 3.43 L, Hgb 10.7 L, Hct 34.0 L, MCV 99.1 H, MCH 31.2, MCHC 31.5 L, RDW Std Deviation 52.2 H, RDW Coeff of Willard 14.5, Plt Count 454 H, MPV 9.1, Immature Gran % (Auto) 1.500 H, Neut % (Auto) 86.7 H, Lymph % (Auto) 3.3 L, Bertie % (Auto) 8.0, Eos % (Auto) 0.2, Baso % (Auto) 0.3, Absolute Neuts (auto) 15.9 H, Absolute Lymphs (auto) 0.60 L, Nucleated RBC % 0.2 10/08/20 05:00: Sodium 133 L, Potassium 5.3 H, Chloride 102, Carbon Dioxide 22.0, Anion Gap 9, BUN 77 H, Creatinine 3.38 H, Estim Creat Clear Calc 16.85, Est GFR (MDRD) Af Amer 23 L, Est GFR (MDRD) Non-Af 19 L, BUN/Creatinine Ratio 22.8 H, Glucose 155 H, Calcium 8.5, Total Bilirubin 1.00, AST 52 H, ALT 43, Alkaline Phosphatase 185 H, Total Protein 6.9, Albumin 2.7 L, Globulin 4.2, Albumin/Globulin Ratio 0.6 L 10/08/20 05:00: PT 24.7 H, INR 2.3 10/08/20 06:29: POC Glucose 138 H Current Medications Al Hydroxide/Mg Hydroxide (Mag Hydrox/Al Hydrox/Simeth 30 Ml Udc) 30 ml PO Q6H PRN PRN PRN Reason: Gastric Burning [facility] ([facility] 100 Mg [facility]) [facility] Admin: 10/08/20 08:23 Dose: 100 mg Documented by: Amlodipine Besylate (Amlodipine 5 Mg Tablet) 5 mg PO DAILY [facility] Last Admin: 10/08/20 08:23 Dose: 5 mg Documented by: Aspirin (Aspirin 81 Mg Tab.Chew) 81 mg PO DAILY@0800 [facility] Last Admin: 10/08/20 08:23 Dose: 81 mg Documented by: Heparin Sodium (Beef Lung) (Heparin Pf Lock 10 Units/Ml 50 Units/5 Ml Syringe) 50 units IV UD PRN PRN Reason: PICC Line Heparin Flush Cefepime HCl 2 gm/ Sodium (Chloride) 100 mls @ 200 mls/hr IV Q12 [facility] Stop: 11/13/20 22:29 Last Admin: 10/08/20 08:54 Dose: 200 mls/hr Documented by: Sodium Chloride () 250 mls @ 15 mls/hr IV .[id number] PRN PRN Reason: Saline Flush Sodium Chloride () 250 mls @ 15 mls/hr IV .[id number] PRN PRN Reason: Additional IVPB Infusion Insulin Human Lispro (Insulin Lispro 100 Unit/Ml Insuln.Pen) 0 unit SC ACHS [facility]; Protocol Last Admin: 10/08/20 06:32 Dose: Not Given Documented by: Melatonin (Melatonin 3 Mg Tablet) 3 mg PO QHS PRN PRN PRN Reason: INSOMNIA Metoprolol Succinate (Metoprolol(Xl)Succ 100 Mg Tablet) 100 mg PO DAILY [facility] Last Admin: 10/08/20 08:23 Dose: 100 mg Documented by: Ondansetron HCl (Ondansetron 4 Mg/2 Ml Vial) 4 mg IV Q8H PRN PRN PRN Reason: NAUSEA/VOMITING Senna/Docusate Sodium (Senna/Docusate Sodium 1 Tablet) 2 tablet PO BID PRN PRN PRN Reason: Constipation Sodium Chloride (0.9% Saline Lock 10 Ml Syringe) 10 - 40 ml IV UD PRN PRN Reason: Open End PICC Flush Last Admin: 10/08/20 08:37 Dose: 10 ml Documented by: Sodium Chloride (0.9 % Nacl (Sterile) Posiflush 10 Ml) 10 - 40 ml IV UD PRN PRN Reason: Port access or dressing change Tolterodine Tartrate (Tolterodine Tartrate 2 Mg Cap.Sa) 2 mg PO DAILY [facility] Last Admin: 10/08/20 08:23 Dose: 2 mg Documented by: Warfarin Sodium (Jantoven 2 Mg Tablet) 2 mg PO DAILY@1700 [facility] Last Admin: 10/07/20 18:32 Dose: 2 mg Documented by: Medical Necessity - Tobacco Use Smoking Status: Current every day smoker Route of nutrition/ use of supplements: [] Nutritional Intake: [] IV Site: [] Anne Catheter: [] - Assessment/Plan Antibiotics: [] Assessment/Plan: [] Active and Suspected Problems (Last Reviewed 10/07/20 @ 16:[address] Donnie Billings, DO) Dyspnea (Acute) Elevated troponin (Acute) LUIS EDUARDO (acute kidney injury) (Acute) Hyperkalemia (Acute) Encephalopathy (Acute) Pt gone this AM from room. On cefepime, worsening LUIS EDUARDO. Will check urine eos. D/w primary team, will follow
[2020-10-08] MEDS: Insulin Lispro 100 UNIT/ML INSULN.PEN SC ×2 (11:11→21:40)
[2020-10-08 11:16] LABS: Bedside Glucose 152 mg/dL (70-110)
--- NOTE | 2020-10-08 13:09 | NURSING ---
wound photo: left forearm
--- NOTE | 2020-10-08 13:09 | NURSING ---
wound photo: left lower leg
--- NOTE | 2020-10-08 13:10 | NURSING ---
wound photo: left lower leg
--- NOTE | 2020-10-08 13:11 | NURSING ---
wound photo: right leg
--- NOTE | 2020-10-08 15:26 | PN_ITS ---
<Dagoberto Moralesssica [employer] - Last Filed: 10/08/20 15:36> Patient Problems: Active and Suspected Problems (Last Reviewed 10/07/20 @ 16:[address] Donnie mohan DO) Dyspnea (Acute) Elevated troponin (Acute) LUIS EDUARDO (acute kidney injury) (Acute) Hyperkalemia (Acute) Encephalopathy (Acute) Subjective: Patient seen and examined. Encephalopathy appears to be improving. Patient was able to state month and converse appropriately. However, nursing does report intermittent confusion. Patient denies any specific complaints. - Physical Exam Vitals/I&O's: Vital Signs Temp Pulse Resp BP Pulse Ox 97.0 F L 67 18 116/88 H 94 10/08/20 14:15 10/08/20 15:00 10/08/20 14:15 10/08/20 14:15 10/08/20 14:15 Oxygen Flow Rate (L/min) 2 Oxygen Delivery Method Nasal Cannula Weight: 260 lb 5.855 oz Body Mass Index (BMI) 38.4 Finger Stick Blood Glucose 196 Intake and Output for Last 24 Hours 10/06/20 10/07/20 10/08/20 23:59 23:59 23:59 Intake Total 340 / 340 580 / 580 Output Total 600 / 600 Balance 340 / -210 -20 / -20 General: Alert, Oriented x3, Cooperative, No apparent distress HEENT: Atraumatic, PERRLA, EOMI, Normocephalic Neck: Supple, No JVD, Negative Carotid Bruits Lungs: Clear to auscultation, Diminished Cardiovascular: Regular rate, No murmurs Abdomen: Bowel Sounds Present, Soft, Non Tender, Non-Distended Extremities: No clubbing, No cyanosis, No edema, Capillary Refill Less than 3 Seconds Skin: No rashes, No breakdown, - - Right lower extremity dressing intact. Musculoskeletal: No Tenderness to Palpation of Joints or Extremities Neurological: Cranial nerves II-XII grossly intact, Neuro grossly intact Psych/Mental Status: Normal Affect Microbiology Past 72 Hours 10/07/20 08:40 Mucosa - Nose SARS-CoV-2 Antigen (Rapid) - Final Laboratory Results 10/07/20 18:30: Sodium 132 L, Potassium 5.1, Chloride 99, Carbon Dioxide 27.0, Anion Gap 6, BUN 70 H, Creatinine 2.99 H, Estim Creat Clear Calc 19.05, Est GFR (MDRD) Af Amer 26 L, Est GFR (MDRD) Non-Af 22 L, BUN/Creatinine Ratio 23.4 H, Glucose 139 H, Calcium 8.9 10/07/20 18:35: Urine Color Yellow, Urine Clarity Sl. Cloudy, Urine pH 5.0, Ur Specific [place] 1.015, Urine Protein 30 H, Urine Glucose (UA) Normal, Urine Ketones Negative, Urine Occult Blood 50 H, Urine Nitrite Negative, Urine Bilirubin Negative, Urine Urobilinogen Normal, Ur Leukocyte Esterase Negative, Urine RBC 0-5 SEEN, Urine WBC 0 SEEN, Ur Squamous Epith Cells 0-5 SEEN, Urine Bacteria 0 SEEN, Urine Mucus 0 SEEN 10/07/20 18:35: Urine Creatinine 39.80, Urine Urea Nitrogen 316 10/07/20 22:37: POC Glucose 181 H 10/08/20 05:00: WBC 18.3 H, RBC 3.43 L, Hgb 10.7 L, Hct 34.0 L, MCV 99.1 H, MCH 31.2, MCHC 31.5 L, RDW Std Deviation 52.2 H, RDW Coeff of [place] 14.5, Plt Count 454 H, MPV 9.1, Immature Gran % (Auto) 1.500 H, Neut % (Auto) 86.7 H, Lymph % (Auto) 3.3 L, Swift % (Auto) 8.0, Eos % (Auto) 0.2, Baso % (Auto) 0.3, Absolute Neuts (auto) 15.9 H, Absolute Lymphs (auto) 0.60 L, Nucleated RBC % 0.2 10/08/20 05:00: Sodium 133 L, Potassium 5.3 H, Chloride 102, Carbon Dioxide 22.0, Anion Gap 9, BUN 77 H, Creatinine 3.38 H, Estim Creat Clear Calc 16.85, Est GFR (MDRD) Af Amer 23 L, Est GFR (MDRD) Non-Af 19 L, BUN/Creatinine Ratio 22.8 H, Glucose 155 H, Calcium 8.5, Total Bilirubin 1.00, AST 52 H, ALT 43, Alkaline Phosphatase 185 H, Total Protein 6.9, Albumin 2.7 L, Globulin 4.2, Albumin/Globulin Ratio 0.6 L 10/08/20 05:00: PT 24.7 H, INR 2.3 10/08/20 06:29: POC Glucose 138 H 10/08/20 11:09: POC Glucose 152 H Current Medications Al Hydroxide/Mg Hydroxide (Mag Hydrox/Al Hydrox/Simeth 30 Ml Udc) 30 ml PO Q6H PRN PRN PRN Reason: Gastric Burning Allopurinol ([facility] 100 Mg Tablet) [facility] Last Admin: 10/08/20 08:23 Dose: 100 mg Documented by: Amlodipine Besylate (Amlodipine 5 Mg Tablet) 5 mg PO DAILY [facility] Last Admin: 10/08/20 08:23 Dose: 5 mg Documented by: Aspirin (Aspirin 81 Mg Tab.Chew) 81 mg PO DAILY@0800 [facility] Last Admin: 10/08/20 08:23 Dose: 81 mg Documented by: Heparin Sodium (Beef Lung) (Heparin Pf Lock 10 Units/Ml 50 Units/5 Ml Syringe) 50 units IV UD PRN PRN Reason: PICC Line Heparin Flush Sodium Chloride () 250 mls @ 15 mls/hr IV .[id number] PRN PRN Reason: Saline Flush Sodium Chloride () 250 mls @ 15 mls/hr IV .[id number] PRN PRN Reason: Additional IVPB Infusion Cefepime HCl 2 gm/ Sodium (Chloride) 100 mls @ 200 mls/hr IV DAILY [facility] Stop: 11/13/20 10:01 Insulin Human Lispro (Insulin Lispro 100 Unit/Ml Insuln.Pen) 0 unit SC ACHS [facility]; Protocol Last Admin: 10/08/20 11:11 Dose: 2 u Documented by: Melatonin (Melatonin 3 Mg Tablet) 3 mg PO QHS PRN PRN PRN Reason: INSOMNIA Metoprolol Succinate (Metoprolol(Xl)Succ 100 Mg Tablet) 100 mg PO DAILY [facility] Last Admin: 10/08/20 08:23 Dose: 100 mg Documented by: Ondansetron HCl (Ondansetron 4 Mg/2 Ml Vial) 4 mg IV Q8H PRN PRN PRN Reason: NAUSEA/VOMITING Senna/Docusate Sodium (Senna/Docusate Sodium 1 Tablet) 2 tablet PO BID PRN PRN PRN Reason: Constipation Sodium Chloride (0.9% Saline Lock 10 Ml Syringe) 10 - 40 ml IV UD PRN PRN Reason: Open End PICC Flush Last Admin: 10/08/20 08:37 Dose: 10 ml Documented by: Sodium Chloride (0.9 % Nacl (Sterile) Posiflush 10 Ml) 10 - 40 ml IV UD PRN PRN Reason: Port access or dressing change Tolterodine Tartrate (Tolterodine Tartrate 2 Mg Cap.Sa) 2 mg PO DAILY [facility] Last Admin: 10/08/20 08:23 Dose: 2 mg Documented by: Warfarin Sodium (Jantoven 2 Mg Tablet) 2 mg PO DAILY@1700 [facility] Last Admin: 10/07/20 18:32 Dose: 2 mg Documented by: Medical Necessity - Tobacco Use Smoking Status: Current every day smoker Assessment/Plan All Active Problems (Last Reviewed 10/07/20 @ 16:[address] Donnie Billings DO) Dyspnea (Acute) Elevated troponin (Acute) LUIS EDUARDO (acute kidney injury) (Acute) Hyperkalemia (Acute) Encephalopathy (Acute) Acute hemorrhagic colitis (Resolved) Black tarry stools (Resolved) Rectal bleeding (Resolved) 1. Acute kidney injury with hyperkalemia-nephrology consulted. Hold nephrotoxic regimen. Renal ultra sound shows chronic medical renal disease, no hydronephrosis. Patient received Kayexalate. 2. Abnormal troponin-cardiology following. Echocardiogram demonstrates an EF of 50%, pulmonary artery systolic pressure 42 mmHg. Plan for stress test in the next 24 to 48 hours. Continue aspirin, metoprolol. 3. Recent right knee Pseudomonas septic arthritis-on IV cefepime. Dressing changes as ordered. Wound RN consult. ID consulted. 4. Acute metabolic encephalopathy-suspect multifactorial secondary to #1/#3 as well as narcotic regimen for pain. Treatment per above. Hold narcotic regimen. Brain CT negative. 5. Type 2 diabetes macwznzh-[id number] with sliding scale insulin. 6. Paroxysmal atrial fibrillation-continue metoprolol, Coumadin. 7. Chronic bilateral stasis ulcers-wound RN consult. 8. Hypertension-stable, continue amlodipine, metoprolol. 9. Hyperlipidemia-not on statin. 10. Obesity-encourage diet and lifestyle modifications. 11. Gout-on allopurinol. DVT prophylaxis-Coumadin. This patient was seen by JOSE Dickerson under the supervision of Dr. Billings. <Donnie Billings - Last Filed: 10/08/20 16:21> - Physical Exam Vitals/I&O's: Vital Signs Temp Pulse Resp BP Pulse Ox 36.1 C L 67 18 116/88 H 94 10/08/20 14:15 10/08/20 15:00 10/08/20 14:15 10/08/20 14:15 10/08/20 14:15 Oxygen Flow Rate (L/min) 2 Oxygen Delivery Method Nasal Cannula Weight: 118.1 kg Body Mass Index (BMI) 38.4 Finger Stick Blood Glucose 196 Intake and Output for Last 24 Hours 10/06/20 10/07/20 10/08/20 23:59 23:59 23:59 Intake Total 340 / 340 580 / 580 Output Total 600 / 600 Balance 340 / -210 - -20 General: - - more alert today, but still confused HEENT: Atraumatic, Normocephalic Lungs: Clear to auscultation, Normal air movement, No rhonchi, No wheeze Cardiovascular: Regular rate, Regular Rhythm, Normal S1, Normal S2, No murmurs Abdomen: Bowel Sounds Present, Soft, Non Tender, Non-Distended Extremities: No clubbing, No edema Skin: No rashes, No breakdown, - Musculoskeletal: No Tenderness to Palpation of Joints or Extremities Microbiology Past 72 Hours 10/07/20 08:40 Mucosa - Nose SARS-CoV-2 Antigen (Rapid) - Final Laboratory Results 10/07/20 18:30: Sodium 132 L, Potassium 5.1, Chloride 99, Carbon Dioxide 27.0, Anion Gap 6, BUN 70 H, Creatinine 2.99 H, Estim Creat Clear Calc 19.05, Est GFR (MDRD) Af Amer 26 L, Est GFR (MDRD) Non-Af 22 L, BUN/Creatinine Ratio 23.4 H, Glucose 139 H, Calcium 8.9 10/07/20 18:35: Urine Color Yellow, Urine Clarity Sl. Cloudy, Urine pH 5.0, Ur Specific [place] 1.015, Urine Protein 30 H, Urine Glucose (UA) Normal, Urine Ketones Negative, Urine Occult Blood 50 H, Urine Nitrite Negative, Urine Bilirubin Negative, Urine Urobilinogen Normal, Ur Leukocyte Esterase Negative, Urine RBC 0-5 SEEN, Urine WBC 0 SEEN, Ur Squamous Epith Cells 0-5 SEEN, Urine Bacteria 0 SEEN, Urine Mucus 0 SEEN 10/07/20 18:35: Urine Creatinine 39.80, Urine Urea Nitrogen 316 10/07/20 22:37: POC Glucose 181 H 10/08/20 05:00: WBC 18.3 H, RBC 3.43 L, Hgb 10.7 L, Hct 34.0 L, MCV 99.1 H, MCH 31.2, MCHC 31.5 L, RDW Std Deviation 52.2 H, RDW Coeff of [place] 14.5, Plt Count 454 H, MPV 9.1, Immature Gran % (Auto) 1.500 H, Neut % (Auto) 86.7 H, Lymph % (Auto) 3.3 L, [place] % (Auto) 8.0, Eos % (Auto) 0.2, Baso % (Auto) 0.3, Absolute Neuts (auto) 15.9 H, Absolute Lymphs (auto) 0.60 L, Nucleated RBC % 0.2 10/08/20 05:00: Sodium 133 L, Potassium 5.3 H, Chloride 102, Carbon Dioxide 22.0, Anion Gap 9, BUN 77 H, Creatinine 3.38 H, Estim Creat Clear Calc 16.85, Est GFR (MDRD) Af Amer 23 L, Est GFR (MDRD) Non-Af 19 L, BUN/Creatinine Ratio 22.8 H, Glucose 155 H, Calcium 8.5, Total Bilirubin 1.00, AST 52 H, ALT 43, Alkaline Phosphatase 185 H, Total Protein 6.9, Albumin 2.7 L, Globulin 4.2, Albumin/Globulin Ratio 0.6 L 10/08/20 05:00: PT 24.7 H, INR 2.3 10/08/20 06:29: POC Glucose 138 H 10/08/20 11:09: POC Glucose 152 H 10/08/20 15:45: Eos Smear Total Cells Pending 10/08/20 15:45: U Random Total Protein 150.0 H, Ur Random Sodium 6, Urine Creatinine 101.00 Current Medications Al Hydroxide/Mg Hydroxide (Mag Hydrox/Al Hydrox/Simeth 30 Ml Udc) 30 ml PO Q6H PRN PRN PRN Reason: Gastric Burning Allopurinol ([facility] 100 Mg Tablet) [facility] Last Admin: 10/08/20 08:23 Dose: 100 mg Documented by: Amlodipine Besylate (Amlodipine 5 Mg Tablet) 5 mg PO DAILY [facility] Last Admin: 10/08/20 08:23 Dose: 5 mg Documented by: Aspirin (Aspirin 81 Mg Tab.Chew) 81 mg PO DAILY@0800 [facility] Last Admin: 10/08/20 08:23 Dose: 81 mg Documented by: Heparin Sodium (Beef Lung) (Heparin Pf Lock 10 Units/Ml 50 Units/5 Ml Syringe) 50 units IV UD PRN PRN Reason: PICC Line Heparin Flush Sodium Chloride () 250 mls @ 15 mls/hr IV .[id number] PRN PRN Reason: Saline Flush Sodium Chloride () 250 mls @ 15 mls/hr IV .[id number] PRN PRN Reason: Additional IVPB Infusion Cefepime HCl 2 gm/ Sodium (Chloride) 100 mls @ 200 mls/hr IV DAILY [facility] Stop: 11/13/20 10:01 Insulin Human Lispro (Insulin Lispro 100 Unit/Ml Insuln.Pen) 0 unit SC ACHS [facility]; Protocol Last Admin: 10/08/20 11:11 Dose: 2 u Documented by: Melatonin (Melatonin 3 Mg Tablet) 3 mg PO QHS PRN PRN PRN Reason: INSOMNIA Metoprolol Succinate (Metoprolol(Xl)Succ 100 Mg Tablet) 100 mg PO DAILY [facility] Last Admin: 10/08/20 08:23 Dose: 100 mg Documented by: Ondansetron HCl (Ondansetron 4 Mg/2 Ml Vial) 4 mg IV Q8H PRN PRN PRN Reason: NAUSEA/VOMITING Senna/Docusate Sodium (Senna/Docusate Sodium 1 Tablet) 2 tablet PO BID PRN PRN PRN Reason: Constipation Sodium Chloride (0.9% Saline Lock 10 Ml Syringe) 10 - 40 ml IV UD PRN PRN Reason: Open End PICC Flush Last Admin: 10/08/20 08:37 Dose: 10 ml Documented by: Sodium Chloride (0.9 % Nacl (Sterile) Posiflush 10 Ml) 10 - 40 ml IV UD PRN PRN Reason: Port access or dressing change Warfarin Sodium (Jantoven 2 Mg Tablet) 2 mg PO DAILY@1700 [facility] Last Admin: 10/07/20 18:32 Dose: 2 mg Documented by: Assessment/Plan Patient seen and examined independently. Data reviewed. I agree with the above note by the nurse practitioner. 1. Acute kidney injury And has been steadily going up since around October 02. At that time, his creatinine was 1.39 and now it is 3.38. FEUrea 355.2% Hold furosemide, Metformin Renal US showed medical renal dz Nephrology following. 2. Hyperkalemia improved Likely secondary to acute kidney injury Received Kayexalate hold potassium 3. elevated troponin EF down to 50% from 60% in 2018 start ASA slight elevation may be from LUIS EDUARDO and demand cardiology following 4. Encephalopathy no focal deficits may be from oxycodone, which is being held check head CT to r/o acute process. 5. septic arthritis pseudomonal on cefepime ID to continue to follow 6. dyspnea has been on oxygen since 10/02 wean oxygen as tolerated CXR poor quality already on abx for septic arthritis previously negative for COVID 19 on the consider diuresis as weight is up overall from 09/30, though I doubt the accuracy of the weight today (123kg). But will hold for now given worsening kidney function. 7. afib continue warfarin metoprolol succinate 8. DM2 fair control at this time hold metformin given LUIS EDUARDO continue SSI 9. VTE prophylaxsi: anticoagulation Inpatient E&M: [id number] Subs Hosp L3
--- NOTE | 2020-10-08 15:28 | CON.PCM_ITS ---
Consultation - Renal 10/08/20 PCP/ Referring MD: Requesting physician: [] Primary care physician: Dr. Man Cha MD Reason for Consultation:: acute on CKD stage 3 - History of Present Illness History of Present Illness: The patient is a 80 year old M readmitted to [facility] on 10/07/20 for progressive renal failure with septic rt knee, elevated WBC. He is s/p bilateral TKA, developed septic knee with aspirate growing pseudomonas on 10/01 treated with vanco/ceftriaxone s/p irrigation and arthroplasty with polyethylene exchanger on 10/02. Creatinine was 1.4 to 1.57 during hospiitalization 10/01 to 10/04. Subsequently transferred to TCU for rehab on iv cefepime managed by ID. Creatinine continued to rise to 2.56 eGFR 26cc/min on 10/06, transferred back to [facility] with creatinine 3.03, potassium 5.8 on 10/07/20 with increased bloody drainage, swelling of right knee. Creatinine now 3.38 eGFR 19cc/min. He is restless, confused. at bedside to provide history. He has respiratory acidosis with CO2 retention on ABG. Extensive chart review. Baseline creatinine was 1.5 eGFR 50cc/min in July 2020 while on lasix 40mg twice a day for history of CHF, chronic afib on chronic anticoagulation, history of COPD, smokes a pipe. He was on metformin for diabetes now discontinued. He has chronic essential tremor. He is confused, poor historian. Echo on 10/07/20 LVEF 50%, moderate TR, pulmonary hypertension, mild LAE, small left pleural effusion. Renal US on 10/08/20 showed RK 12.5cm with increased echogenic kidneys, cysts in mid and lower pole RK. LK was not visible. No hydronephrosis noted. CT abdomen from 01/25/2019 showed multiple hepatic cysts with 1cm cyst in upper pole LK with 2 cysts on right. His is not aware of PCKD in family. His niece has CKD close to dialysis. UA showed min proteinuria, no leukocytes, no RBC's, no bacteria. UCr 39 with sp.gr. 1.015. CBC with diff without eosinophils. Urine output not recorded. Pt morales removed yesterday due to restlessness, pulling on tubing. Repeat Saumya 6, UCr 101. BNP 854, albumin 2.7. - Allergies Allergies: Allergies No Known Allergies Allergy (Verified 10/07/20 08:35) - Current Medications Current Medications: Current Medications Al Hydroxide/Mg Hydroxide (Mag Hydrox/Al Hydrox/Simeth 30 Ml Udc) 30 ml PO Q6H PRN PRN PRN Reason: Gastric Burning Allopurinol ([facility] 100 Mg Tablet) [facility] Last Admin: 10/08/20 08:23 Dose: 100 mg Documented by: Amlodipine Besylate (Amlodipine 5 Mg Tablet) 5 mg PO DAILY [facility] Last Admin: 10/08/20 08:23 Dose: 5 mg Documented by: Aspirin (Aspirin 81 Mg Tab.Chew) 81 mg PO DAILY@0800 [facility] Last Admin: 10/08/20 08:23 Dose: 81 mg Documented by: Heparin Sodium (Beef Lung) (Heparin Pf Lock 10 Units/Ml 50 Units/5 Ml Syringe) 50 units IV UD PRN PRN Reason: PICC Line Heparin Flush Sodium Chloride () 250 mls @ 15 mls/hr IV .[id number] PRN PRN Reason: Saline Flush Sodium Chloride () 250 mls @ 15 mls/hr IV .[id number] PRN PRN Reason: Additional IVPB Infusion Cefepime HCl 2 gm/ Sodium (Chloride) 100 mls @ 200 mls/hr IV DAILY [facility] Stop: 11/13/20 10:01 Insulin Human Lispro (Insulin Lispro 100 Unit/Ml Insuln.Pen) 0 unit SC ACHS [facility]; Protocol Last Admin: 10/08/20 11:11 Dose: 2 u Documented by: Melatonin (Melatonin 3 Mg Tablet) 3 mg PO QHS PRN PRN PRN Reason: INSOMNIA Metoprolol Succinate (Metoprolol(Xl)Succ 100 Mg Tablet) 100 mg PO DAILY [facility] Last Admin: 10/08/20 08:23 Dose: 100 mg Documented by: Ondansetron HCl (Ondansetron 4 Mg/2 Ml Vial) 4 mg IV Q8H PRN PRN PRN Reason: NAUSEA/VOMITING Senna/Docusate Sodium (Senna/Docusate Sodium 1 Tablet) 2 tablet PO BID PRN PRN PRN Reason: Constipation Sodium Chloride (0.9% Saline Lock 10 Ml Syringe) 10 - 40 ml IV UD PRN PRN Reason: Open End PICC Flush Last Admin: 10/08/20 08:37 Dose: 10 ml Documented by: Sodium Chloride (0.9 % Nacl (Sterile) Posiflush 10 Ml) 10 - 40 ml IV UD PRN PRN Reason: Port access or dressing change Warfarin Sodium (Jantoven 2 Mg Tablet) 2 mg PO DAILY@1700 [facility] Last Admin: 10/07/20 18:32 Dose: 2 mg Documented by: - Past Medical History Past Medical History (Chronic Problems): Chronic Problems (Last Reviewed 10/07/20 @ 16:[address] 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) Venous stasis dermatitis (Chronic) Atrial fibrillation (Chronic) Hypertension (Chronic) Chronic diastolic congestive heart failure (Chronic) Diabetes mellitus (Chronic) Gout (Chronic) Hypomagnesemia (Chronic) Overactive bladder (Chronic) Hypokalemia (Chronic) Atrial flutter (Chronic) Hyperlipidemia (Chronic) Essential hypertension (Chronic) Paroxysmal atrial fibrillation (Chronic) COPD (chronic obstructive pulmonary disease) (Chronic) Chronic diastolic heart failure (Chronic) - Past Surgical History Surgical History: herniorrhaphy - Umbilical., total knee arthroplasty - Bilateral., - - Right wrist fracture, Kidney stones, Bilateral carpal tunnel release, back surgery. - Social History Smoking Status: Current every day smoker - Family History Maternal Family History: Family History (Last Reviewed 10/07/20 @ 16:[address] Donnie Billings DO) Brother Diabetes Sister Cancer Grandfather Heart disease Sister Alzheimers disease Sister Parkinson disease History Items: No pertinent history Paternal Family History: Family History (Last Reviewed 10/07/20 @ 16:[address] Donnie Billings DO) Brother Diabetes Sister Cancer Grandfather Heart disease Sister Alzheimers disease Sister Parkinson disease History Items: No pertinent history Sibling Family History: Family History (Last Reviewed 10/07/20 @ 16:[address] Donnie Billings DO) Brother Diabetes Sister Cancer Grandfather Heart disease Sister Alzheimers disease Sister Parkinson disease History Items: Cancer, Diabetes, Heart Disease Review of Systems Constitutional: Reports: Anorexia, Malaise, Weakness, Fatigue. Denies: Chills, Fever HEENT: Denies: Head Aches Cardiovascular: Reports: Edema, - - hx chronic afib. Denies: Chest Pain Respiratory: Reports: - - hx COPD. Denies: Cough, Shortness of Breath Gastrointestinal: Denies: Abdominal Pain, Constipation, Diarrhea, Nausea, Vomiting Genitourinary: Reports: - - morales removed due to trauma Musculoskeletal: Reports: - - right knee pain, swelling, drainage, infection s/p arthroplasty, aspiration with septic knee, antibiotic spacer placement Neurological: Reports: Tremor - chronic myotonic jerking. Denies: Seizures Psychiatric: Denies: Anxiety, Depression Hematologic/ Lymphatic: Reports: Anemia, Easy Bleeding - on anticoagulation. Denies: Hx of blood clot Patient Problems: Active and Suspected Problems (Last Reviewed 10/07/20 @ 16:[address] Donnie Billings, DO) Dyspnea (Acute) Elevated troponin (Acute) LUIS EDUARDO (acute kidney injury) (Acute) Hyperkalemia (Acute) Encephalopathy (Acute) - Physical Exam Vitals/I&O's: Vital Signs Temp Pulse Resp BP Pulse Ox 97.0 F L 67 18 116/88 H 94 10/08/20 14:15 10/08/20 15:00 10/08/20 14:15 10/08/20 14:15 10/08/20 14:15 Oxygen Flow Rate (L/min) 2 Oxygen Delivery Method Nasal Cannula Weight: 118.1 kg Body Mass Index (BMI) 38.4 Finger Stick Blood Glucose 196 Intake and Output for Last 24 Hours 10/06/20 10/07/20 10/08/20 23:59 23:59 23:59 Intake Total 340 / 340 580 / 580 Output Total 600 / 600 Balance 340 / -210 -20 / -20 General: Confused, - - poor historian, encephalopathic Neck: Negative Carotid Bruits Lungs: Diminished Cardiovascular: Irregular Rate - afib Abdomen: Non Tender, Hypoactive Bowel Sounds, Distended, Obese, - - anasarca Extremities: Edema, - - legs wrapped BLE, rt knee pain, swelling, reported drainage and redness Musculoskeletal: No Muscle Wasting Neurological: - - myotonic jerking Psych/Mental Status: Agitated, Restless Microbiology Past 72 Hours 10/07/20 08:40 Mucosa - Nose SARS-CoV-2 Antigen (Rapid) - Final Laboratory Results 10/07/20 18:30: Sodium 132 L, Potassium 5.1, Chloride 99, Carbon Dioxide 27.0, Anion Gap 6, BUN 70 H, Creatinine 2.99 H, Estim Creat Clear Calc 19.05, Est GFR (MDRD) Af Amer 26 L, Est GFR (MDRD) Non-Af 22 L, BUN/Creatinine Ratio 23.4 H, Glucose 139 H, Calcium 8.9 10/07/20 18:35: Urine Color Yellow, Urine Clarity Sl. Cloudy, Urine pH 5.0, Ur Specific [place] 1.015, Urine Protein 30 H, Urine Glucose (UA) Normal, Urine Ketones Negative, Urine Occult Blood 50 H, Urine Nitrite Negative, Urine Bilirubin Negative, Urine Urobilinogen Normal, Ur Leukocyte Esterase Negative, Urine RBC 0-5 SEEN, Urine WBC 0 SEEN, Ur Squamous Epith Cells 0-5 SEEN, Urine Bacteria 0 SEEN, Urine Mucus 0 SEEN 10/07/20 18:35: Urine Creatinine 39.80, Urine Urea Nitrogen 316 10/07/20 22:37: POC Glucose 181 H 10/08/20 05:00: WBC 18.3 H, RBC 3.43 L, Hgb 10.7 L, Hct 34.0 L, MCV 99.1 H, MCH 31.2, MCHC 31.5 L, RDW Std Deviation 52.2 H, RDW Coeff of [place]ard 14.5, Plt Count 454 H, MPV 9.1, Immature Gran % (Auto) 1.500 H, Neut % (Auto) 86.7 H, Lymph % (Auto) 3.3 L, [place] % (Auto) 8.0, Eos % (Auto) 0.2, Baso % (Auto) 0.3, Absolute Neuts (auto) 15.9 H, Absolute Lymphs (auto) 0.60 L, Nucleated RBC % 0.2 10/08/20 05:00: Sodium 133 L, Potassium 5.3 H, Chloride 102, Carbon Dioxide 22.0, Anion Gap 9, BUN 77 H, Creatinine 3.38 H, Estim Creat Clear Calc 16.85, Est GFR (MDRD) Af Amer 23 L, Est GFR (MDRD) Non-Af 19 L, BUN/Creatinine Ratio 22.8 H, Glucose 155 H, Calcium 8.5, Total Bilirubin 1.00, AST 52 H, ALT 43, Alkaline Phosphatase 185 H, Total Protein 6.9, Albumin 2.7 L, Globulin 4.2, Albumin/Globulin Ratio 0.6 L 10/08/20 05:00: PT 24.7 H, INR 2.3 10/08/20 06:29: POC Glucose 138 H 10/08/20 11:09: POC Glucose 152 H Clinical Impression(s) from Imaging Studies Chest X-Ray 10/07/20 08:34 IMPRESSION: Poor inspiration with some bibasilar atelectasis. Electronically Signed: Saul Maldonado MD at 8:59 EST Tel , Service support , Brain CT 10/07/20 16:37 IMPRESSION: Chronic involutional changes of the brain. Electronically Signed: Saul Maldonado MD at 17:37 EST Tel , Service support , Renal Ultrasound 10/08/20 07:42 IMPRESSION: 1. Nonvisualization of the left kidney. 2. Chronic medical renal disease the right kidney but no hydronephrosis to suggest obstruction. 3. Small amount of ascites. 4. Left-sided pleural effusion. Electronically Signed: Saul Maldonado MD at 10:23 EST Tel , Service support , Current Medications Al Hydroxide/Mg Hydroxide (Mag Hydrox/Al Hydrox/Simeth 30 Ml Udc) 30 ml PO Q6H PRN PRN PRN Reason: Gastric Burning Allopurinol (Allopurinol 100 Mg Tablet) [facility] Last Admin: 10/08/20 08:23 Dose: 100 mg Documented by: Amlodipine Besylate (Amlodipine 5 Mg Tablet) 5 mg PO DAILY [facility] Last Admin: 10/08/20 08:23 Dose: 5 mg Documented by: Aspirin (Aspirin 81 Mg Tab.Chew) 81 mg PO DAILY@0800 [facility] Last Admin: 10/08/20 08:23 Dose: 81 mg Documented by: Heparin Sodium (Beef Lung) (Heparin Pf Lock 10 Units/Ml 50 Units/5 Ml Syringe) 50 units IV UD PRN PRN Reason: PICC Line Heparin Flush Sodium Chloride () 250 mls @ 15 mls/hr IV .[id number] PRN PRN Reason: Saline Flush Sodium Chloride () 250 mls @ 15 mls/hr IV .[id number] PRN PRN Reason: Additional IVPB Infusion Cefepime HCl 2 gm/ Sodium (Chloride) 100 mls @ 200 mls/hr IV DAILY [facility] Stop: 11/13/20 10:01 Insulin Human Lispro (Insulin Lispro 100 Unit/Ml Insuln.Pen) 0 unit SC ACHS [facility]; Protocol Last Admin: 10/08/20 11:11 Dose: 2 u Documented by: Melatonin (Melatonin 3 Mg Tablet) 3 mg PO QHS PRN PRN PRN Reason: INSOMNIA Metoprolol Succinate (Metoprolol(Xl)Succ 100 Mg Tablet) 100 mg PO DAILY [facility] Last Admin: 10/08/20 08:23 Dose: 100 mg Documented by: Ondansetron HCl (Ondansetron 4 Mg/2 Ml Vial) 4 mg IV Q8H PRN PRN PRN Reason: NAUSEA/VOMITING Senna/Docusate Sodium (Senna/Docusate Sodium 1 Tablet) 2 tablet PO BID PRN PRN PRN Reason: Constipation Sodium Chloride (0.9% Saline Lock 10 Ml Syringe) 10 - 40 ml IV UD PRN PRN Reason: Open End PICC Flush Last Admin: 10/08/20 08:37 Dose: 10 ml Documented by: Sodium Chloride (0.9 % Nacl (Sterile) Posiflush 10 Ml) 10 - 40 ml IV UD PRN PRN Reason: Port access or dressing change Warfarin Sodium (Jantoven 2 Mg Tablet) 2 mg PO DAILY@1700 [facility] Last Admin: 10/07/20 18:32 Dose: 2 mg Documented by: Assessment/Plan All Active Problems (Last Reviewed 10/07/20 @ 16:[address] Donnie Billings, DO) Pulmonary hypertension (Acute) Dyspnea (Acute) Elevated troponin (Acute) LUIS EDUARDO (acute kidney injury) (Acute) Hyperkalemia (Acute) Encephalopathy (Acute) Acute hemorrhagic colitis (Resolved) Black tarry stools (Resolved) Rectal bleeding (Resolved) 1. Acute on CKD Stage 3 due to septic knee. Baseline creatinine 1.5 eGFR 50cc/min in July 2020, now with creatinine 3.38 eGFR 19cc/min from 1.34 on 10/01 on antibiotics for septic knee since 10/01/20 with progressive renal failure. FeNa <1% suspect early ATN vs hemodynamic changes from chronic afib, poor intake, diuretics, and infection. Stop detrol to avoid urinary retention. Avoid nephrotoxins, iv contrast, NSAIDs. Pt with bilateral renal cysts, echogenic kidneys from CKD with liver cysts suggest PCKD. No FH of PCKD that they are aware of. Morales to CD for accurate I/O's. Luis Eduardo potentially reversible if underlying septic knee clears. Otherwise, pt may need temporary hemodialysis if renal function continues to decline. This was discussed with pt spouse at bedside. 2. DM2 avoid metformin. 3. Septic rt knee s/p arthroplasty, polyethylene exchanger iv antibx. Leukocytosis persists. ID following 4. Hyperkalemia stop KCL, add low K diet 5. Chronic afib on anticoagulation 6. COPD 7. Pulmonary hypertension 8. Anemia, check iron studies. 9. Confusion, hypercapnia. Cautious use of narcotics. 10 Morbid obesity
[2020-10-08] MEDS: Furosemide 40 MG/4 ML Vial IV (15:56)
[2020-10-08 16:17] LABS: Urine Sodium 6 mmol/L (Not Establ.)
[2020-10-08 16:55] LABS: Bedside Glucose 148 mg/dL (70-110)
[2020-10-08] MEDS: Jantoven 2 MG Tablet PO (17:35)
[2020-10-08 23:15] LABS: Bedside Glucose 151 mg/dL (70-110)
[2020-10-09] VITALS (12 sets, daily range): BP systolic 114–133; BP diastolic 74–88; PULSE 61–88; RESP 12–22; TEMP 35.7–36.2; O2SAT 93–97
[2020-10-09 06:41] LABS: Bedside Glucose 144 mg/dL (70-110)
[2020-10-09 07:28] LABS: Absolute Lymphocyte Count 0.74 X10^3/uL (0.83-4.51); Absolute Neutrophil Count 16.6 X10^3/uL (2.0-7.7); Basophil# 0.06 X10^3/uL; Basophil% 0.3 % (0-1); Eosinophil# 0.01 X10^3/uL; Eosinophils% 0.1 % (0-5); Hematocrit 35.7 % (40-54); Hemoglobin 11.1 g/dL (13.0-16.5); Lymphocyte # 0.74 X10^3/ul (4.0); Lymphocyte % 3.9 % (19-41); Mean Corp Hgb Conc 31.1 g/dL (32-36); Mean Corpuscular Hgb 31.4 pg (27.0-32.0); Mean Corpuscular Volume 100.8 fL (80-94); Mean Platelet Vol. 9.2 fl (6.2-12.0); Monocyte# 1.26 X10^3/uL; Monocyte% 6.6 % (0-10); NRBC Flagged by Analyzer 0.3 % (0-5); Neutrophil # 16.58 X10^3/uL (2.7-7.7); Neutrophil % 87.1 % (47-70); Platelet Count 462 K/mm3 (150-450); RBC Distribution Width CV 14.7 % (11.6-14.6); RBC Distribution Width SD 55.2 fl (35.1-43.9); Red Blood Count 3.54 M/mm3 (4.6-6.2)
[2020-10-09 08:03] LABS: Albumin, Serum 3.1 g/dL (3.2-5.0); BUN 88 mg/dL (7-18); Calcium,Total 8.9 mg/dL (8.5-10.1); Chloride 97 mmol/L (98-107); Creatinine, Serum 3.67 mg/dL (0.70-1.30); EST Glomerular Filtration Rate 17 mL/min (>60); Est Glom Filt Rate - Afr Amer 21 mL/min (>60); Estimated Creatinine Clearance 15.52 ml/min; Ferritin 312 ng/mL (26-388); Glucose 142 mg/dL (74-106); Iron 57 ug/dL (65-175); Iron Binding Capacity,Total 414 ug/dL (250-450); PERCENT IRON SATURATION 13.8 % (15.0-55.0); Phosphorus 6.8 mg/dL (2.5-4.9); Potassium 5.4 mmol/L (3.5-5.1); Sodium Level 129 mmol/L (136-145)
[2020-10-09 08:16] LABS: International Normalized Ratio 2.6; Prothrombin Time (Protime)PT. 27.7 SECONDS (11.7-14.9)
[2020-10-09] MEDS: Metoprolol(XL)Succ 100 MG Tablet PO (08:48)
[2020-10-09] MEDS: amLODIPine 5 MG Tablet PO (08:48)
[2020-10-09] MEDS: Aspirin 81 MG TAB.CHEW PO (08:48)
[2020-10-09] MEDS: Allopurinol 100 MG Tablet PO (08:48)
[2020-10-09] MEDS: 0.9% Saline Lock 10 ML Syringe IV (08:53)
[2020-10-09 11:25] LABS: Bedside Glucose 159 mg/dL (70-110)
--- NOTE | 2020-10-09 11:50 | PCM.PN.REN ---
Patient Problems: Active and Suspected Problems (Last Reviewed 10/07/20 @ 16:[address] Donnie Billings, DO) Dyspnea (Acute) Elevated troponin (Acute) LUIS EDUARDO (acute kidney injury) (Acute) Hyperkalemia (Acute) Encephalopathy (Acute) Subjective: worsening renal function, more lethargy, confusion. Urine dark, scant in morales bag. Rt knee with bloody drainage. - Physical Exam Vitals/I&O's: Vital Signs Temp Pulse Resp BP Pulse Ox 96.2 F L 72 18 128/75 H 94 10/09/20 08:20 10/09/20 08:48 10/09/20 08:20 10/09/20 08:48 10/09/20 08:20 Oxygen Flow Rate (L/min) 1.5 Oxygen Delivery Method Nasal Cannula Weight: 118.1 kg Body Mass Index (BMI) 38.4 Finger Stick Blood Glucose 196 Intake and Output for Last 24 Hours 10/07/20 10/08/20 10/09/20 23:59 23:59 23:59 Intake Total 340 / 340 820 / 820 100 / 100 Output Total 800 / 925 275 / 275 Balance 340 / -210 20 / -105 -175 / -175 General: Confused, Disoriented, Lethargic Lungs: Diminished Cardiovascular: Irregular Rate - afib Abdomen: Bowel Sounds Present, Non Tender, Distended, Obese Extremities: Edema - mild, rt knee mild swelling, berhane in place, legs wrapped Skin: - - rt knee infection, minimal erythema Musculoskeletal: No Muscle Wasting Neurological: - - unable to assess due to lethargy Psych/Mental Status: - - confused, encephalopathic Microbiology Past 72 Hours 10/07/20 08:40 Mucosa - Nose SARS-CoV-2 Antigen (Rapid) - Final Laboratory Results 10/08/20 15:45: Eos Smear Total Cells Pending 10/08/20 15:45: U Random Total Protein 150.0 H, Ur Random Sodium 6, Urine Creatinine 101.00 10/08/20 16:51: POC Glucose 148 H 10/08/20 21:38: POC Glucose 151 H 10/09/20 05:53: POC Glucose 144 H 10/09/20 06:25: WBC 19.0 H, RBC 3.54 L, Hgb 11.1 L, Hct 35.7 L, MCV 100.8 H, MCH 31.4, MCHC 31.1 L, RDW Std Deviation 55.2 H, RDW Coeff of [place]ard 14.7 H, Plt Count 462 H, MPV 9.2, Immature Gran % (Auto) 2.000 H, Neut % (Auto) 87.1 H, Lymph % (Auto) 3.9 L, [place] % (Auto) 6.6, Eos % (Auto) 0.1, Baso % (Auto) 0.3, Absolute Neuts (auto) 16.6 H, Absolute Lymphs (auto) 0.74 L, Nucleated RBC % 0.3 10/09/20 06:25: Sodium 129 L, Potassium 5.4 H, Chloride 97 L, Carbon Dioxide 23.0, BUN 88 H, Creatinine 3.67 H, Estim Creat Clear Calc 15.52, Est GFR (MDRD) Af Amer 21 L, Est GFR (MDRD) Non-Af 17 L, BUN/Creatinine Ratio 24.0 H, Glucose 142 H, Calcium 8.9, Phosphorus 6.8 H, Iron 57 L, TIBC 414, Iron Saturation 13.8 L, Ferritin 312, Albumin 3.1 L 10/09/20 06:25: PT 27.7 H, INR 2.6 10/09/20 10:57: POC Glucose 159 H Current Medications Al Hydroxide/Mg Hydroxide (Mag Hydrox/Al Hydrox/Simeth 30 Ml Udc) 30 ml PO Q6H PRN PRN PRN Reason: Gastric Burning Allopurinol ([facility] 100 Mg Tablet) [facility] Last Admin: 10/09/20 08:48 Dose: 100 mg Documented by: Amlodipine Besylate (Amlodipine 5 Mg Tablet) 5 mg PO DAILY [facility] Last Admin: 10/09/20 08:48 Dose: 5 mg Documented by: Aspirin (Aspirin 81 Mg Tab.Chew) 81 mg PO DAILY@0800 [facility] [place] Last Admin: 10/09/20 08:48 Dose: 81 mg Documented by: Heparin Sodium (Beef Lung) (Heparin Pf Lock 10 Units/Ml 50 Units/5 Ml Syringe) 50 units IV UD PRN PRN Reason: PICC Line Heparin Flush Sodium Chloride () 250 mls @ 15 mls/hr IV .[id number] PRN PRN Reason: Saline Flush Sodium Chloride () 250 mls @ 15 mls/hr IV .[id number] PRN PRN Reason: Additional IVPB Infusion Cefepime HCl 2 gm/ Sodium (Chloride) 100 mls @ 200 mls/hr IV DAILY [facility] [place] Stop: 11/13/20 10:01 Last Infusion: 10/09/20 10:08 Dose: Infused Documented by: Sodium Chloride () 1,000 mls @ 75 mls/hr IV .[id number] [facility] Insulin Human Lispro (Insulin Lispro 100 Unit/Ml Insuln.Pen) 0 unit SC ACHS [facility] [place]; Protocol Last Admin: 10/09/20 06:03 Dose: Not Given Documented by: Melatonin (Melatonin 3 Mg Tablet) 3 mg PO QHS PRN PRN PRN Reason: INSOMNIA Metoprolol Succinate (Metoprolol(Xl)Succ 100 Mg Tablet) 100 mg PO DAILY [facility] [place] Last Admin: 10/09/20 08:48 Dose: 100 mg Documented by: Ondansetron HCl (Ondansetron 4 Mg/2 Ml Vial) 4 mg IV Q8H PRN PRN PRN Reason: NAUSEA/VOMITING Senna/Docusate Sodium (Senna/Docusate Sodium 1 Tablet) 2 tablet PO BID PRN PRN PRN Reason: Constipation Sodium Chloride (0.9% Saline Lock 10 Ml Syringe) 10 - 40 ml IV UD PRN PRN Reason: Open End PICC Flush Last Admin: 10/09/20 08:53 Dose: 10 ml Documented by: Sodium Chloride (0.9 % Nacl (Sterile) Posiflush 10 Ml) 10 - 40 ml IV UD PRN PRN Reason: Port access or dressing change Sodium Chloride (0.9% Saline Lock 10 Ml Syringe) 10 - 40 ml IV UD PRN PRN Reason: SALINE FLUSH Warfarin Sodium (Jantoven 2 Mg Tablet) 2 mg PO DAILY@1700 [facility] [place] Last Admin: 10/08/20 17:35 Dose: 2 mg Documented by: Medical Necessity - Tobacco Use Smoking Status: Current every day smoker Assessment/Plan All Active Problems (Last Reviewed 10/07/20 @ 16:[address] Donnie Billings, DO) Pulmonary hypertension (Acute) Dyspnea (Acute) Elevated troponin (Acute) LUIS EDUARDO (acute kidney injury) (Acute) Hyperkalemia (Acute) Encephalopathy (Acute) Acute hemorrhagic colitis (Resolved) Black tarry stools (Resolved) Rectal bleeding (Resolved) 1. Acute on CKD Stage 3 due to septic knee. Creatinine continues to rise with increased leukocytosis. 2. altered mental status, confusion. Check ABG to evaluate for hypercapnea. Hold on pain meds 3. Septic rt knee s/p arthroplasty, polyethylene exchanger iv antibx. Leukocytosis persists. ID following. May need antibx renal dosed. Consult Ortho. 4. Hyperkalemia stop KCL, add low K diet 5. Chronic afib on anticoagulation 6. Hyponatremia with urine sodium low at 9. Start gentle hydration NSS at 75cc/hr 7. Pulmonary hypertension 8. Anemia, iron studies low. Hold on replacement due to acute infectious process. 9. DM2 stable. DW primary service.
--- NOTE | 2020-10-09 11:59 | RAD_ITS ---
STUDY: X-RAY CHEST REASON FOR EXAM: Male, 80 years old. [place] TECHNIQUE: Single AP portable view of the chest. COMPARISON: Comparison is made with prior study dated 10/07/2020. FINDINGS: EKG electrodes are seen. The previously seen right-sided PICC line catheter is not seen at this time. Increased markings at the left lung base suggestive of a left basilar atelectasis and/or early infiltrate. Blunting of both costophrenic angles. There is mild cardiac enlargement. Normal mediastinum and amauri. Normal visualized pulmonary arteries. Normal visualized aortic arch and descending thoracic aorta. There are diffuse degenerative changes of the visualized thoracic spine. Status post left shoulder replacement. Osteoarthritis of the right shoulder joint. There is no demonstrated abnormality of the visualized soft tissue structures of the upper abdomen. RAD/Chest 1 View (Portable) IMPRESSION: Stable examination. Electronically Signed: Dong Multani MD at 12:59 EST , Service support ,
--- NOTE | 2020-10-09 12:57 | PN.ID_ITS ---
Patient Problems: Active and Suspected Problems (Last Reviewed 10/07/20 @ 16:[address] Donnie Billings, DO) Dyspnea (Acute) Elevated troponin (Acute) LUIS EDUARDO (acute kidney injury) (Acute) Hyperkalemia (Acute) Encephalopathy (Acute) Subjective: No fever, decreased mental status - Physical Exam Vitals/I&O's: Vital Signs Temp Pulse Resp BP Pulse Ox 96.2 F L 72 18 128/75 H 94 10/09/20 08:20 10/09/20 08:48 10/09/20 08:20 10/09/20 08:48 10/09/20 08:20 Oxygen Flow Rate (L/min) 1.5 Oxygen Delivery Method Nasal Cannula Weight: 118.1 kg Body Mass Index (BMI) 38.4 Finger Stick Blood Glucose 196 Intake and Output for Last 24 Hours 10/07/20 10/08/20 10/09/20 23:59 23:59 23:59 Intake Total 340 / 340 820 / 820 150 / 150 Output Total 800 / 925 375 / 375 Balance 340 / -210 20 / -105 -225 / -225 General: No apparent distress, Lethargic Lungs: Clear to auscultation, Normal air movement Cardiovascular: Regular rate, Regular Rhythm Abdomen: Soft, Non Tender, Distended Extremities: Edema Skin: Ulcer/ Wound - R knee wrapped Microbiology Past 72 Hours 10/07/20 08:40 Mucosa - Nose SARS-CoV-2 Antigen (Rapid) - Final Laboratory Results 10/08/20 15:45: Eos Smear Total Cells Pending 10/08/20 15:45: U Random Total Protein 150.0 H, Ur Random Sodium 6, Urine Creatinine 101.00 10/08/20 16:51: POC Glucose 148 H 10/08/20 21:38: POC Glucose 151 H 10/09/20 05:53: POC Glucose 144 H 10/09/20 06:25: WBC 19.0 H, RBC 3.54 L, Hgb 11.1 L, Hct 35.7 L, MCV 100.8 H, MCH 31.4, MCHC 31.1 L, RDW Std Deviation 55.2 H, RDW Coeff of Willard 14.7 H, Plt Count 462 H, MPV 9.2, Immature Gran % (Auto) 2.000 H, Neut % (Auto) 87.1 H, Lymph % (Auto) 3.9 L, [place] % (Auto) 6.6, Eos % (Auto) 0.1, Baso % (Auto) 0.3, Absolute Neuts (auto) 16.6 H, Absolute Lymphs (auto) 0.74 L, Nucleated RBC % 0.3 10/09/20 06:25: Sodium 129 L, Potassium 5.4 H, Chloride 97 L, Carbon Dioxide 23.0, BUN 88 H, Creatinine 3.67 H, Estim Creat Clear Calc 15.52, Est GFR (MDRD) Af Amer 21 L, Est GFR (MDRD) Non-Af 17 L, BUN/Creatinine Ratio 24.0 H, Glucose 142 H, Calcium 8.9, Phosphorus 6.8 H, Iron 57 L, TIBC 414, Iron Saturation 13.8 L, Ferritin 312, Albumin 3.1 L 10/09/20 06:25: PT 27.7 H, INR 2.6 10/09/20 10:57: POC Glucose 159 H 10/09/20 12:40: Lactic Acid Pending Current Medications Al Hydroxide/Mg Hydroxide (Mag Hydrox/Al Hydrox/Simeth 30 Ml Udc) 30 ml PO Q6H PRN PRN PRN Reason: Gastric Burning Allopurinol (Allopurinol 100 Mg Tablet) [facility] Last Admin: 10/09/20 08:48 Dose: 100 mg Documented by: Aspirin (Aspirin 81 Mg Tab.Chew) 81 mg PO DAILY@0800 [facility] Last Admin: 10/09/20 08:48 Dose: 81 mg Documented by: Heparin Sodium (Beef Lung) (Heparin Pf Lock 10 Units/Ml 50 Units/5 Ml Syringe) 50 units IV UD PRN PRN Reason: PICC Line Heparin Flush Sodium Chloride () 250 mls @ 15 mls/hr IV .[id number] PRN PRN Reason: Saline Flush Sodium Chloride () 250 mls @ 15 mls/hr IV .[id number] PRN PRN Reason: Additional IVPB Infusion Cefepime HCl 2 gm/ Sodium (Chloride) 100 mls @ 200 mls/hr IV DAILY [facility] Stop: 11/13/20 10:01 Last Infusion: 10/09/20 10:08 Dose: Infused Documented by: Sodium Chloride () 1,000 mls @ 75 mls/hr IV .[id number] [facility] Insulin Human Lispro (Insulin Lispro 100 Unit/Ml Insuln.Pen) 0 unit SC [facility]; Protocol Last Admin: 10/09/20 12:21 Dose: Not Given Documented by: Melatonin (Melatonin 3 Mg Tablet) 3 mg PO QHS PRN PRN PRN Reason: INSOMNIA Metoprolol Succinate (Metoprolol(Xl)Succ 100 Mg Tablet) 100 mg PO DAILY [facility] Last Admin: 10/09/20 08:48 Dose: 100 mg Documented by: Ondansetron HCl (Ondansetron 4 Mg/2 Ml Vial) 4 mg IV Q8H PRN PRN PRN Reason: NAUSEA/VOMITING Senna/Docusate Sodium (Senna/Docusate Sodium 1 Tablet) 2 tablet PO BID PRN PRN PRN Reason: Constipation Sodium Chloride (0.9% Saline Lock 10 Ml Syringe) 10 - 40 ml IV UD PRN PRN Reason: Open End PICC Flush Last Admin: 10/09/20 08:53 Dose: 10 ml Documented by: Sodium Chloride (0.9 % Nacl (Sterile) Posiflush 10 Ml) 10 - 40 ml IV UD PRN PRN Reason: Port access or dressing change Sodium Chloride (0.9% Saline Lock 10 Ml Syringe) 10 - 40 ml IV UD PRN PRN Reason: SALINE FLUSH Warfarin Sodium (Jantoven 2 Mg Tablet) 2 mg PO DAILY@1700 [facility] Last Admin: 10/08/20 17:35 Dose: 2 mg Documented by: Medical Necessity - Tobacco Use Smoking Status: Current every day smoker Route of nutrition/ use of supplements: [] Nutritional Intake: [] IV Site: [] Anne Catheter: [] - Assessment/Plan Antibiotics: [] Assessment/Plan: [] Active and Suspected Problems (Last Reviewed 10/07/20 @ 16:[address] Donnie Billings, DO) Dyspnea (Acute) Elevated troponin (Acute) LUIS EDUARDO (acute kidney injury) (Acute) Hyperkalemia (Acute) Encephalopathy (Acute) PsA R knee PJI. On cefepime, worsening LUIS EDUARDO. Will change to meropenem in case cefepime was contributing to LUIS EDUARDO. will follow
[2020-10-09 13:09] LABS: Lactic Acid 1.9 mmol/L (0.4-1.9)
[2020-10-09 14:06] LABS: Allen Test Positive; Base Excess -2 mmol/L (-2 to +2); Bicarbonate 25.5 mmol/L (22-26); Blood Gas Specimen Type ART; O2 Delivery Device Cannula; PO2 61 mmHG (75-100); SITE R Brach; SO2 85 % (95-99); Total Carbon Dioxide 28 mmol/L; pCO2 63.4 mmHg (35-45); pH 7.21 (7.35-7.45)
[2020-10-09] MEDS: 0.9% Normal Saline 1,000 ML 75 ML IV (14:50)
--- NOTE | 2020-10-09 14:50 | PCM.PROGNOTE ---
<Terri Morales [employer] - Last Filed: 10/09/20 14:58> Patient Problems: Active and Suspected Problems (Last Reviewed 10/07/20 @ 16:[address] Donnie Billings DO) Dyspnea (Acute) Elevated troponin (Acute) LUIS EDUARDO (acute kidney injury) (Acute) Hyperkalemia (Acute) Encephalopathy (Acute) Subjective: Patient seen and examined. Lethargic today, appears tachypneic. Minimal urine output. Afebrile. - Physical Exam Vitals/I&O's: Vital Signs Temp Pulse Resp BP Pulse Ox 96.2 F L 72 18 128/75 H 94 10/09/20 08:20 10/09/20 08:48 10/09/20 08:20 10/09/20 08:48 10/09/20 08:20 Oxygen Flow Rate (L/min) 1.5 Oxygen Delivery Method Nasal Cannula Weight: 260 lb 5.855 oz Body Mass Index (BMI) 38.4 Finger Stick Blood Glucose 196 Intake and Output for Last 24 Hours 10/07/20 10/08/20 10/09/20 23:59 23:59 23:59 Intake Total 340 / 340 820 / 820 150 / 150 Output Total 800 / 925 375 / 375 Balance 340 / -210 20 / -105 -225 / -225 General: Lethargic HEENT: Atraumatic, PERRLA, EOMI, Normocephalic Neck: Supple, No JVD, Negative Carotid Bruits Lungs: Clear to auscultation, Diminished, Tachypneic Cardiovascular: - - Atrial fibrillation, rate controlled Abdomen: Bowel Sounds Present, Soft, Non Tender, Non-Distended, Obese Extremities: No clubbing, No cyanosis, No edema, Capillary Refill Less than 3 Seconds Skin: No rashes, No breakdown, - - Right knee dressing intact Musculoskeletal: No Tenderness to Palpation of Joints or Extremities Neurological: Cranial nerves II-XII grossly intact, Neuro grossly intact Psych/Mental Status: Normal Affect, Appropriate Microbiology Past 72 Hours 10/07/20 08:40 Mucosa - Nose SARS-CoV-2 Antigen (Rapid) - Final Laboratory Results 10/08/20 15:45: Eos Smear Total Cells Pending 10/08/20 15:45: U Random Total Protein 150.0 H, Ur Random Sodium 6, Urine Creatinine 101.00 10/08/20 16:51: POC Glucose 148 H 10/08/20 21:38: POC Glucose 151 H 10/09/20 05:53: POC Glucose 144 H 10/09/20 06:25: WBC 19.0 H, RBC 3.54 L, Hgb 11.1 L, Hct 35.7 L, MCV 100.8 H, MCH 31.4, MCHC 31.1 L, RDW Std Deviation 55.2 H, RDW Coeff of Willard 14.7 H, Plt Count 462 H, MPV 9.2, Immature Gran % (Auto) 2.000 H, Neut % (Auto) 87.1 H, Lymph % (Auto) 3.9 L, Person % (Auto) 6.6, Eos % (Auto) 0.1, Baso % (Auto) 0.3, Absolute Neuts (auto) 16.6 H, Absolute Lymphs (auto) 0.74 L, Nucleated RBC % 0.3 10/09/20 06:25: Sodium 129 L, Potassium 5.4 H, Chloride 97 L, Carbon Dioxide 23.0, BUN 88 H, Creatinine 3.67 H, Estim Creat Clear Calc 15.52, Est GFR (MDRD) Af Amer 21 L, Est GFR (MDRD) Non-Af 17 L, BUN/Creatinine Ratio 24.0 H, Glucose 142 H, Calcium 8.9, Phosphorus 6.8 H, Iron 57 L, TIBC 414, Iron Saturation 13.8 L, Ferritin 312, Albumin 3.1 L 10/09/20 06:25: PT 27.7 H, INR 2.6 10/09/20 10:57: POC Glucose 159 H 10/09/20 12:40: Lactic Acid 1.9 10/09/20 13:59: Specimen Type ART, Sample Site R Brach, pH 7.21 L, Bicarbonate Actual 25.5, Total CO2 28, Base Excess -2, O2 Saturation 85 L, ABG pCO2 63.4 H, ABG pO2 61 L, Foster Test Positive, O2 Delivery Device Cannula, Liter Flow 2.0 Current Medications Al Hydroxide/Mg Hydroxide (Mag Hydrox/Al Hydrox/Simeth 30 Ml Udc) 30 ml PO Q6H PRN PRN PRN Reason: Gastric Burning Allopurinol ([facility] 100 Mg Tablet) [facility] Last Admin: 10/09/20 08:48 Dose: 100 mg Documented by: Aspirin (Aspirin 81 Mg Tab.Chew) 81 mg PO DAILY@0800 [facility] Last Admin: 10/09/20 08:48 Dose: 81 mg Documented by: Heparin Sodium (Beef Lung) (Heparin Pf Lock 10 Units/Ml 50 Units/5 Ml Syringe) 50 units IV UD PRN PRN Reason: PICC Line Heparin Flush Sodium Chloride () 250 mls @ 15 mls/hr IV .[id number] PRN PRN Reason: Saline Flush Sodium Chloride () 250 mls @ 15 mls/hr IV .[id number] PRN PRN Reason: Additional IVPB Infusion Sodium Chloride () 1,000 mls @ 75 mls/hr IV .[id number] [facility] Meropenem 500 mg/ Sodium (Chloride) 60 mls @ 100 mls/hr IV DAILY@2200 [facility] Insulin Human Lispro (Insulin Lispro 100 Unit/Ml Insuln.Pen) 0 unit [facility]; Protocol Last Admin: 10/09/20 12:21 Dose: Not Given Documented by: Melatonin (Melatonin 3 Mg Tablet) 3 mg PO QHS PRN PRN PRN Reason: INSOMNIA Metoprolol Succinate (Metoprolol(Xl)Succ 100 Mg Tablet) 100 mg PO DAILY [facility] Last Admin: 10/09/20 08:48 Dose: 100 mg Documented by: Ondansetron HCl (Ondansetron 4 Mg/2 Ml Vial) 4 mg IV Q8H PRN PRN PRN Reason: NAUSEA/VOMITING Senna/Docusate Sodium (Senna/Docusate Sodium 1 Tablet) 2 tablet PO BID PRN PRN PRN Reason: Constipation Sodium Chloride (0.9% Saline Lock 10 Ml Syringe) 10 - 40 ml IV UD PRN PRN Reason: Open End PICC Flush Last Admin: 10/09/20 08:53 Dose: 10 ml Documented by: Sodium Chloride (0.9 % Nacl (Sterile) Posiflush 10 Ml) 10 - 40 ml IV UD PRN PRN Reason: Port access or dressing change Sodium Chloride (0.9% Saline Lock 10 Ml Syringe) 10 - 40 ml IV UD PRN PRN Reason: SALINE FLUSH Warfarin Sodium (Jantoven 2 Mg Tablet) 2 mg PO DAILY@1700 [facility] Last Admin: 10/08/20 17:35 Dose: 2 mg Documented by: Medical Necessity - Tobacco Use Smoking Status: Current every day smoker Assessment/Plan All Active Problems (Last Reviewed 10/07/20 @ 16:[address] Donnie Billings DO) Pulmonary hypertension (Acute) Dyspnea (Acute) Elevated troponin (Acute) LUIS EDUARDO (acute kidney injury) (Acute) Hyperkalemia (Acute) Encephalopathy (Acute) Acute hemorrhagic colitis (Resolved) Black tarry stools (Resolved) Rectal bleeding (Resolved) 1. Acute kidney injury with hyperkalemia-nephrology consulted. Hold nephrotoxic regimen. Renal ultra sound shows chronic medical renal disease, no hydronephrosis. Will repeat Kayexalate. May need temporary hemodialysis if renal function continues to decline. 2. Abnormal troponin-cardiology following. Echocardiogram demonstrates an EF of 50%, pulmonary artery systolic pressure 42 mmHg. Plan for stress test when patient is stable medically. Continue aspirin, metoprolol. 3. Recent right knee Pseudomonas septic arthritis-on IV meropenem. Dressing changes as ordered. Wound RN consult. ID consulted. Ortho consulted. 4. Acute metabolic encephalopathy-suspect multifactorial secondary to #1/#3/#5 as well as narcotic regimen for pain. Treatment per above. Hold narcotic regimen. Brain CT negative. 5. Respiratory acidosis, hypercapnia- BIPAP ordered. 6. Type 2 diabetes [id number] with sliding scale insulin. 7. Paroxysmal atrial fibrillation-continue metoprolol, Coumadin. 8. Chronic bilateral stasis ulcers-wound RN consult. 9. Hypertension-stable, continue amlodipine, metoprolol. 10. Hyperlipidemia-not on statin. 11. Obesity-encourage diet and lifestyle modifications. 12. Gout-on allopurinol. DVT prophylaxis-Coumadin. This patient was seen by JOSE Dickerson under the supervision of Dr. Billings. <Donnie Billings - Last Filed: 10/09/20 15:54> - Physical Exam Vitals/I&O's: Vital Signs Temp Pulse Resp BP Pulse Ox 35.7 C L 88 18 114/74 93 10/09/20 14:40 10/09/20 15:34 10/09/20 15:34 10/09/20 14:40 10/09/20 15:34 Oxygen Flow Rate (L/min) 1.5 Oxygen Delivery Method Nasal Cannula Weight: 118.1 kg Body Mass Index (BMI) 38.4 Finger Stick Blood Glucose 196 Intake and Output for Last 24 Hours 10/07/20 10/08/20 10/09/20 23:59 23:59 23:59 Intake Total 340 / 340 820 / 820 150 / 150 Output Total 800 / 925 375 / 375 Balance 340 / -210 20 / -105 -225 / -225 General: Confused, Lethargic HEENT: Atraumatic, PERRLA, EOMI, Normocephalic Neck: Supple, No JVD, Negative Carotid Bruits Lungs: Clear to auscultation, Diminished, Tachypneic Cardiovascular: - Abdomen: Bowel Sounds Present, Soft, Non Tender, Non-Distended, Obese Extremities: No clubbing, No cyanosis, No edema, Capillary Refill Less than 3 Seconds Skin: No rashes, No breakdown, - Neurological: Cranial nerves II-XII grossly intact, Neuro grossly intact Psych/Mental Status: Normal Affect, Appropriate Microbiology Past 72 Hours 10/07/20 08:40 Mucosa - Nose SARS-CoV-2 Antigen (Rapid) - Final Laboratory Results 10/08/20 15:45: Eos Smear Total Cells Pending 10/08/20 15:45: U Random Total Protein 150.0 H, Ur Random Sodium 6, Urine Creatinine 101.00 10/08/20 16:51: POC Glucose 148 H 10/08/20 21:38: POC Glucose 151 H 10/09/20 05:53: POC Glucose 144 H 10/09/20 06:25: WBC 19.0 H, RBC 3.54 L, Hgb 11.1 L, Hct 35.7 L, MCV 100.8 H, MCH 31.4, MCHC 31.1 L, RDW Std Deviation 55.2 H, RDW Coeff of Willard 14.7 H, Plt Count 462 H, MPV 9.2, Immature Gran % (Auto) 2.000 H, Neut % (Auto) 87.1 H, Lymph % (Auto) 3.9 L, Person % (Auto) 6.6, Eos % (Auto) 0.1, Baso % (Auto) 0.3, Absolute Neuts (auto) 16.6 H, Absolute Lymphs (auto) 0.74 L, Nucleated RBC % 0.3 10/09/20 06:25: Sodium 129 L, Potassium 5.4 H, Chloride 97 L, Carbon Dioxide 23.0, BUN 88 H, Creatinine 3.67 H, Estim Creat Clear Calc 15.52, Est GFR (MDRD) Af Amer 21 L, Est GFR (MDRD) Non-Af 17 L, BUN/Creatinine Ratio 24.0 H, Glucose 142 H, Calcium 8.9, Phosphorus 6.8 H, Iron 57 L, TIBC 414, Iron Saturation 13.8 L, Ferritin 312, Albumin 3.1 L 10/09/20 06:25: PT 27.7 H, INR 2.6 10/09/20 10:57: POC Glucose 159 H 10/09/20 12:40: Lactic Acid 1.9 10/09/20 13:59: Specimen Type ART, Sample Site R Brach, pH 7.21 L, Bicarbonate Actual 25.5, Total CO2 28, Base Excess -2, O2 Saturation 85 L, ABG pCO2 63.4 H, ABG pO2 61 L, Foster Test Positive, O2 Delivery Device Cannula, Liter Flow 2.0 Current Medications Al Hydroxide/Mg Hydroxide (Mag Hydrox/Al Hydrox/Simeth 30 Ml Udc) 30 ml PO Q6H PRN PRN PRN Reason: Gastric Burning Allopurinol ([facility] 100 Mg Tablet) [facility] Last Admin: 10/09/20 08:48 Dose: 100 mg Documented by: Aspirin (Aspirin 81 Mg Tab.Chew) 81 mg PO DAILY@0800 [facility] Last Admin: 10/09/20 08:48 Dose: 81 mg Documented by: Heparin Sodium (Beef Lung) (Heparin Pf Lock 10 Units/Ml 50 Units/5 Ml Syringe) 50 units IV UD PRN PRN Reason: PICC Line Heparin Flush Sodium Chloride () 250 mls @ 15 mls/hr IV .[id number] PRN PRN Reason: Saline Flush Sodium Chloride () 250 mls @ 15 mls/hr IV .[id number] PRN PRN Reason: Additional IVPB Infusion Sodium Chloride () 1,000 mls @ 75 mls/hr IV .[id number] [facility] Last Admin: 10/09/20 14:50 Dose: 75 mls/hr Documented by: Meropenem 500 mg/ Sodium (Chloride) 60 mls @ 100 mls/hr IV DAILY@2200 [facility] Insulin Human Lispro (Insulin Lispro 100 Unit/Ml Insuln.Pen) 0 unit SC [facility]; Protocol Last Admin: 10/09/20 12:21 Dose: Not Given Documented by: Melatonin (Melatonin 3 Mg Tablet) 3 mg PO QHS PRN PRN PRN Reason: INSOMNIA Metoprolol Succinate (Metoprolol(Xl)Succ 100 Mg Tablet) 100 mg PO DAILY [facility] Last Admin: 10/09/20 08:48 Dose: 100 mg Documented by: Ondansetron HCl (Ondansetron 4 Mg/2 Ml Vial) 4 mg IV Q8H PRN PRN PRN Reason: NAUSEA/VOMITING Senna/Docusate Sodium (Senna/Docusate Sodium 1 Tablet) 2 tablet PO BID PRN PRN PRN Reason: Constipation Sodium Chloride (0.9% Saline Lock 10 Ml Syringe) 10 - 40 ml IV UD PRN PRN Reason: Open End PICC Flush Last Admin: 10/09/20 08:53 Dose: 10 ml Documented by: Sodium Chloride (0.9 % Nacl (Sterile) Posiflush 10 Ml) 10 - 40 ml IV UD PRN PRN Reason: Port access or dressing change Sodium Chloride (0.9% Saline Lock 10 Ml Syringe) 10 - 40 ml IV UD PRN PRN Reason: SALINE FLUSH Warfarin Sodium (Jantoven 2 Mg Tablet) 2 mg PO DAILY@1700 [facility] Last Admin: 10/08/20 17:35 Dose: 2 mg Documented by: Assessment/Plan Patient seen and examined independently. Data reviewed. I agree with the above note by the nurse practitioner. 1. Acute kidney injury And has been steadily going up since around October 02. At that time, his creatinine was 1.39 and now it is 3.38. FEUrea 355.2% Hold furosemide, Metformin Renal US showed medical renal dz Nephrology following. 2. Hyperkalemia improved Likely secondary to acute kidney injury Received Kayexalate hold potassium 3. elevated troponin EF down to 50% from 60% in 2018 start ASA slight elevation may be from LUIS EDUARDO and demand cardiology following 4. Encephalopathy ongoing no focal deficits may be from oxycodone, which is being held check head CT to r/o acute process. check NH3 5. septic arthritis pseudomonal ID and ortho on consult 10/09: cefepime changed to meropenam in case LUIS EDUARDO from cefepime 6. respiratory acidosis has been on oxygen since 10/02 wean oxygen as tolerated CXR poor quality already on abx for septic arthritis previously negative for COVID 19 on the consider diuresis as weight is up overall from 09/30, though I doubt the accuracy of the weight today (123kg). But will hold for now given worsening kidney function. 10/09: BiPAP 7. afib continue warfarin metoprolol succinate 8. DM2 fair control at this time hold metformin given LUIS EDUARDO continue SSI 9. VTE prophylaxsi: anticoagulation Inpatient E&M: 19515 Subs Hosp L3
--- NOTE | 2020-10-09 16:04 | PCM.CONS.GEN ---
Reason for Consult Date of Consultation: 10/09/20 Reason for Consultation: Right knee septic joint History of Present Illness: The patient is a 80 year old M known to me for recent Pseudomonas growth on 2 separate cultures status post irrigation and debridement with polyethylene exchange 10/02/20. On cefepime per infectious disease. Recently admitted for acute renal insufficiency and altered mental status. Patient has chronic lower extremity edema with superficial ulcerations that were weeping upon initial evaluation on 09/30/2020. These openings in the skin were likely the source of bacteria. No other known infection. Patient is seen with at bedside is currently on BiPAP. He denies having any significant pain in the right knee. He has not ambulated in the past 2 days according to Past Medical History Past Medical History (Chronic Problems): Chronic Problems (Last Reviewed 10/07/20 @ 16:[address] 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 Donnie Billings DO) Atrial flutter (Chronic) I48.92 Hyperlipidemia (Chronic) E78.5 Essential hypertension (Chronic) I10 Paroxysmal atrial fibrillation (Chronic) I48.0 COPD (chronic obstructive pulmonary disease) (Chronic) J44.9 Chronic diastolic heart failure (Chronic) I50.32 Anticoagulated on Coumadin Z79.01 Colon polyps K63.5 Diabetic neuropathy E11.40 Gout M10.9 History of spinal stenosis Z87.39 OAB (overactive bladder) N32.81 Osteoarthritis M19.90 Type 2 diabetes mellitus without complication E11.9 Acute hemorrhagic colitis (Resolved) K52.9 Black tarry stools (Resolved) K92.1 Kidney stones N20.0 Rectal bleeding (Resolved) K62.5 Right rotator cuff tear arthropathy M75.101, M12.811 Allergies No Known Allergies Allergy (Verified 10/07/20 08:35) Home Medications: Ambulatory Orders Medication Instructions Recorded metFORMIN HCl [Glucophage] 500 mg PO BIDCM 07/23/15 Amlodipine [Norvasc] 5 mg PO DAILY 03/21/18 Metoprolol(XL)Succ [Toprol Xl 100 mg PO DAILY 02/20/19 (Beta Zeina)] allopurinol 300 mg tablet 300 mg PO DAILY 02/27/19 magnesium 250 mg tablet 250 mg PO DAILY 02/28/19 oxybutynin chloride 5 mg 5 mg PO BID tab 07/23/20 tablet,extended release 24 hr furosemide 40 mg tablet 40 mg PO BID tab 09/19/20 potassium chloride 20 mEq 20 meq PO BID tab 09/19/20 tablet,extended release(part/cryst) Vitamin B Complex 1 tab PO DAILY 09/30/20 Warfarin Sodium 2 mg PO DAILY 09/30/20 Acetaminophen [Tylenol Tablet] 650 mg PO Q6H PRN PRN tab 10/04/20 Cefepime HCl [Maxipime] 2 gm IV Q8 10/04/20 Famotidine [Pepcid] 20 mg PO DAILY 10/04/20 Insulin Lispro [Humalog KwikPen] See Protocol SC ACHS 10/04/20 Mag Hydrox/Al Hydrox/Simeth 30 ml PO Q6H PRN PRN udc 10/04/20 [Mylanta II] Melatonin 3 mg PO QHS PRN PRN tab 10/04/20 Oxycodone [Oxyir] 5 mg PO Q4H PRN PRN 5 Days #20 tab 10/04/20 Senna/Docusate Sodium [Senokot-S] 2 tab PO BID PRN PRN tab 10/04/20 Surgical History: Surgical History (Last Reviewed 10/07/20 @ 16:[address] Donnie Billings, DO) History of back surgery Z98.890 History of bilateral knee replacement Z96.653 History of carpal tunnel release of both wrists Z98.890 Hx of shoulder surgery Z98.890 Left Hx of umbilical hernia repair Z98.890, Z87.19 Surgical History: herniorrhaphy - Umbilical., total knee arthroplasty - Bilateral., - - Right wrist fracture, Kidney stones, Bilateral carpal tunnel release, back surgery. Psychiatric History: No pertinent psych hx Smoking Status: Current every day smoker - *Family History Maternal Family History: Family History (Last Reviewed 10/07/20 @ 16:[address] Donnie Billings DO) Brother Diabetes Sister Cancer Grandfather Heart disease Sister Alzheimers disease Sister Parkinson disease History Items: No pertinent history Paternal Family History: Family History (Last Reviewed 10/07/20 @ 16:[address] Donnie Billings DO) Brother Diabetes Sister Cancer Grandfather Heart disease Sister Alzheimers disease Sister Parkinson disease History Items: No pertinent history Sibling Family History: Family History (Last Reviewed 10/07/20 @ 16:[address] Donnie Billings DO) Brother Diabetes Sister Cancer Grandfather Heart disease Sister Alzheimers disease Sister Parkinson disease History Items: Cancer, Diabetes, Heart Disease Patient Problems: Active and Suspected Problems (Last Reviewed 10/07/20 @ 16:[address] Donnie Billings DO) Dyspnea (Acute) Elevated troponin (Acute) LUIS EDUARDO (acute kidney injury) (Acute) Hyperkalemia (Acute) Encephalopathy (Acute) - Physical Exam Vitals/I&O's: Vital Signs Temp Pulse Resp BP Pulse Ox 96.2 F L 88 18 114/74 93 10/09/20 14:40 10/09/20 15:34 10/09/20 15:34 10/09/20 14:40 10/09/20 15:34 Oxygen Flow Rate (L/min) 1.5 Oxygen Delivery Method Nasal Cannula Weight: 260 lb 5.855 oz Body Mass Index (BMI) 38.4 Finger Stick Blood Glucose 196 Intake and Output for Last 24 Hours 10/07/20 10/08/20 10/09/20 23:59 23:59 23:59 Intake Total 340 / 340 820 / 820 150 / 150 Output Total 800 / 925 375 / 375 Balance 340 / -210 20 / -105 -225 / -225 General: Confused - On CPAP Extremities: - - Right knee incision well approximated there is faint serous drainage. No erythema no significant joint effusion swelling has improved. Chronic lower extremity edema much improved. Microbiology Past 72 Hours 10/07/20 08:40 Mucosa - Nose SARS-CoV-2 Antigen (Rapid) - Final Laboratory Results 10/08/20 15:45: U Random Total Protein 150.0 H, Ur Random Sodium 6, Urine Creatinine 101.00 10/08/20 16:51: POC Glucose 148 H 10/08/20 21:38: POC Glucose 151 H 10/09/20 05:53: POC Glucose 144 H 10/09/20 06:25: WBC 19.0 H, RBC 3.54 L, Hgb 11.1 L, Hct 35.7 L, MCV 100.8 H, MCH 31.4, MCHC 31.1 L, RDW Std Deviation 55.2 H, RDW Coeff of Willard 14.7 H, Plt Count 462 H, MPV 9.2, Immature Gran % (Auto) 2.000 H, Neut % (Auto) 87.1 H, Lymph % (Auto) 3.9 L, [place] % (Auto) 6.6, Eos % (Auto) 0.1, Baso % (Auto) 0.3, Absolute Neuts (auto) 16.6 H, Absolute Lymphs (auto) 0.74 L, Nucleated RBC % 0.3 10/09/20 06:25: Sodium 129 L, Potassium 5.4 H, Chloride 97 L, Carbon Dioxide 23.0, BUN 88 H, Creatinine 3.67 H, Estim Creat Clear Calc 15.52, Est GFR (MDRD) Af Amer 21 L, Est GFR (MDRD) Non-Af 17 L, BUN/Creatinine Ratio 24.0 H, Glucose 142 H, Calcium 8.9, Phosphorus 6.8 H, Iron 57 L, TIBC 414, Iron Saturation 13.8 L, Ferritin 312, Albumin 3.1 L 10/09/20 06:25: PT 27.7 H, INR 2.6 10/09/20 10:57: POC Glucose 159 H 10/09/20 12:40: Lactic Acid 1.9 10/09/20 13:59: Specimen Type ART, Sample Site R Brach, pH 7.21 L, Bicarbonate Actual 25.5, Total CO2 28, Base Excess -2, O2 Saturation 85 L, ABG pCO2 63.4 H, ABG pO2 61 L, Foster Test Positive, O2 Delivery Device Cannula, Liter Flow 2.0 Current Medications Al Hydroxide/Mg Hydroxide (Mag Hydrox/Al Hydrox/Simeth 30 Ml Udc) 30 ml PO Q6H PRN PRN PRN Reason: Gastric Burning All[facility] ([facility] 100 Mg [facility]) [facility] Last Admin: 10/09/20 08:48 Dose: 100 mg Documented by: Aspirin (Aspirin 81 Mg Tab.Chew) 81 mg PO DAILY@0800 [facility] Last Admin: 10/09/20 08:48 Dose: 81 mg Documented by: Heparin Sodium (Beef Lung) (Heparin Pf Lock 10 Units/Ml 50 Units/5 Ml Syringe) 50 units IV UD PRN PRN Reason: PICC Line Heparin Flush Sodium Chloride () 250 mls @ 15 mls/hr IV .[id number] PRN PRN Reason: Saline Flush Sodium Chloride () 250 mls @ 15 mls/hr IV .[id number] PRN PRN Reason: Additional IVPB Infusion Sodium Chloride () 1,000 mls @ 75 mls/hr IV .[id number] [facility] Last Admin: 10/09/20 14:50 Dose: 75 mls/hr Documented by: Meropenem 500 mg/ Sodium (Chloride) 60 mls @ 100 mls/hr IV DAILY@2200 [facility] Insulin Human Lispro (Insulin Lispro 100 Unit/Ml Insuln.Pen) 0 unit SC [facility]; Protocol Last Admin: 10/09/20 12:21 Dose: Not Given Documented by: Melatonin (Melatonin 3 Mg Tablet) 3 mg PO QHS PRN PRN PRN Reason: INSOMNIA Metoprolol Succinate (Metoprolol(Xl)Succ 100 Mg Tablet) 100 mg PO DAILY [facility] Last Admin: 10/09/20 08:48 Dose: 100 mg Documented by: Ondansetron HCl (Ondansetron 4 Mg/2 Ml Vial) 4 mg IV Q8H PRN PRN PRN Reason: NAUSEA/VOMITING Senna/Docusate Sodium (Senna/Docusate Sodium 1 Tablet) 2 tablet PO BID PRN PRN PRN Reason: Constipation Sodium Chloride (0.9% Saline Lock 10 Ml Syringe) 10 - 40 ml IV UD PRN PRN Reason: Open End PICC Flush Last Admin: 10/09/20 08:53 Dose: 10 ml Documented by: Sodium Chloride (0.9 % Nacl (Sterile) Posiflush 10 Ml) 10 - 40 ml IV UD PRN PRN Reason: Port access or dressing change Sodium Chloride (0.9% Saline Lock 10 Ml Syringe) 10 - 40 ml IV UD PRN PRN Reason: SALINE FLUSH Warfarin Sodium (Jantoven 2 Mg Tablet) 2 mg PO DAILY@1700 [facility] Last Admin: 10/08/20 17:35 Dose: 2 mg Documented by: Assessment/Plan All Active Problems (Last Reviewed 10/07/20 @ 16:[address] Donnie Billings, DO) Pulmonary hypertension (Acute) Dyspnea (Acute) Elevated troponin (Acute) LUIS EDUARDO (acute kidney injury) (Acute) Hyperkalemia (Acute) Encephalopathy (Acute) Acute hemorrhagic colitis (Resolved) Black tarry stools (Resolved) Rectal bleeding (Resolved) Serous drainage in this patient at this point is not unexpected. Patient on appropriate antibiotics will be managed by infectious disease in light of recent acute kidney injury may have adjustments. Continue with daily dressing change compression stockings and elevation. No further acute orthopedic intervention at this time. PT/OT WBAT when medically able. anticoagulation per primary.
[2020-10-09] MEDS: Sodium Polystyrene Sulfonate 15 GM/60 ML UDC 30 GM PO (16:30)
[2020-10-09] MEDS: Jantoven 2 MG Tablet PO (16:31)
[2020-10-09 17:00] LABS: Bedside Glucose 165 mg/dL (70-110)
[2020-10-09] MEDS: Haloperidol Lactate 5 MG/ML Vial 2 MG IV ×2 (20:55→22:17)
[2020-10-09] MEDS: Insulin Lispro 100 UNIT/ML INSULN.PEN SC (22:36)
[2020-10-09 22:41] LABS: Bedside Glucose 161 mg/dL (70-110)
[2020-10-09] MEDS: Haloperidol Lactate 5 MG/ML Vial 4 MG IV (23:12)
[2020-10-10] VITALS (22 sets, daily range): BP systolic 103–130; BP diastolic 60–82; PULSE 60–74; RESP 12–27; TEMP 35.9–36.6; O2SAT 94–98
[2020-10-10 00:06] LABS: Allen Test Positive; Base Excess -2 mmol/L (-2 to +2); Bicarbonate 25.4 mmol/L (22-26); Blood Gas Specimen Type ART; O2 Delivery Device Cannula; PO2 88 mmHG (75-100); SITE L Radial; SO2 94 % (95-99); Total Carbon Dioxide 27 mmol/L; pH 7.23 (7.35-7.45)
--- NOTE | 2020-10-10 00:30 | CPS ---
Blood Gas results read to via telephone. Physician aware of results.
[2020-10-10] MEDS: OLANZapine 5 MG/TAB TAB.RAPDIS 10 MG PO (00:40)
--- NOTE | 2020-10-10 01:09 | NURSING ---
Called patient's at [phone] to update on patient condition and to confirm patient code status. Confirmed that patient is [id number] with intubation. Updated that patient was increasingly confused and agitated, restless, wanting to take off bipap mask. Medications given were not effective. Awaiting lab results and patient may need to be intubated. At 1230, notified patient's lab results came back and at this point patient will not be intubated. Patient is still confused and agitated, restless, and wanting to take off bipap mask. A sitter is now at the bedside.
[2020-10-10] MEDS: LORazepam 2 MG/ML Syringe IV (01:43)
[2020-10-10 05:11] LABS: Hemoglobin 10.6 g/dL (13.0-16.5); Mean Corp Hgb Conc 31.2 g/dL (32-36); Mean Corpuscular Hgb 30.6 pg (27.0-32.0); Mean Corpuscular Volume 98.3 fL (80-94); Mean Platelet Vol. 8.9 fl (6.2-12.0); Platelet Count 354 K/mm3 (150-450); RBC Distribution Width CV 14.6 % (11.6-14.6); RBC Distribution Width SD 52.3 fl (35.1-43.9); Red Blood Count 3.46 M/mm3 (4.6-6.2); White Blood Count 17.3 K/mm3 (4.4-11.0)
[2020-10-10 05:21] LABS: International Normalized Ratio 3.9
[2020-10-10 05:32] LABS: Albumin, Serum 2.5 g/dL (3.2-5.0); BUN 101 mg/dL (7-18); BUN/Creat Ratio 25.2 RATIO (10-20); Calcium,Total 8.4 mg/dL (8.5-10.1); Chloride 100 mmol/L (98-107); Creatinine, Serum 4.01 mg/dL (0.70-1.30); EST Glomerular Filtration Rate 15 mL/min (>60); Est Glom Filt Rate - Afr Amer 19 mL/min (>60); Glucose 121 mg/dL (74-106); Phosphorus 7.5 mg/dL (2.5-4.9); Potassium 5.4 mmol/L (3.5-5.1); Sodium Level 132 mmol/L (136-145)
[2020-10-10] MEDS: 0.9% Normal Saline 1,000 ML 75 ML IV (06:25)
[2020-10-10 07:00] LABS: Bedside Glucose 125 mg/dL (70-110)
[2020-10-10 08:45] LABS: Base Excess -3 mmol/L (-2 to +2); Bicarbonate 24.1 mmol/L (22-26); Blood Gas Specimen Type ART; FI02 30; Mode BiLevel; O2 Delivery Device BiPAP; PO2 80 mmHG (75-100); SITE R Brach; SO2 93 % (95-99); Total Carbon Dioxide 26 mmol/L; pCO2 55.5 mmHg (35-45); pH 7.25 (7.35-7.45)
--- NOTE | 2020-10-10 09:56 | PN_ITS ---
Patient Problems: Active and Suspected Problems (Last Reviewed 10/07/20 @ 16:[address] Donnie Billings, DO) Dyspnea (Acute) Elevated troponin (Acute) LUIS EDUARDO (acute kidney injury) (Acute) Hyperkalemia (Acute) Encephalopathy (Acute) Subjective: Agitated overnight requiring olanazapine and haloperidol. BiPAP started 10/09 and sats have remained in mid90s. Vitals/I&O's: Vital Signs Temp Pulse Resp BP Pulse Ox 36.2 C L 62 21 H 111/76 98 10/10/20 06:53 10/10/20 07:20 10/10/20 07:20 10/10/20 06:53 10/10/20 07:36 Oxygen Flow Rate (L/min) 6 Oxygen Delivery Method Bi-pap Weight: 118.1 kg Body Mass Index (BMI) 38.4 Finger Stick Blood Glucose 196 Intake and Output for Last 24 Hours 10/08/20 10/09/20 10/10/20 23:59 23:59 23:59 Intake Total 820 / 820 210 / 210 1000 / 1000 Output Total 800 / 925 475 / 575 175 / 175 Balance 20 / -105 -265 / -365 825 / 825 General: No apparent distress, - - somnlonet. does not awake to verbal or physical stimuli, but turns away. On BiPAP. No tachypnea. HEENT: Atraumatic, Normocephalic Neck: No Nodes, Thyroid Normal Size and Texture Lungs: Clear to auscultation, Normal air movement, No rhonchi, No wheeze, No rales Cardiovascular: Regular rate, Regular Rhythm, Normal S1, Normal S2, No murmurs Abdomen: Non Tender, Distended - but not taught, Obese Extremities: Edema, - - right knee bandaged, did not remove. Musculoskeletal: No Muscle Wasting Neurological: Muscle tone normal, - - moves all extremities spontaneously Psych/Mental Status: Normal Affect, Appropriate Microbiology Past 72 Hours 10/07/20 08:40 Mucosa - Nose SARS-CoV-2 Antigen (Rapid) - Final Laboratory Results 10/09/20 10:57: POC Glucose 159 H 10/09/20 12:40: Lactic Acid 1.9 10/09/20 13:59: Specimen Type ART, Sample Site R Brach, pH 7.21 L, Bicarbonate Actual 25.5, Total CO2 28, Base Excess -2, O2 Saturation 85 L, ABG pCO2 63.4 H, ABG pO2 61 L, Foster Test Positive, O2 Delivery Device Cannula, Liter Flow 2.0 10/09/20 16:05: POC Glucose 165 H 10/09/20 16:15: Ammonia 32.0 10/09/20 22:34: POC Glucose 161 H 10/09/20 23:59: Specimen Type ART, Sample Site L Radial, pH 7.23 L, Bicarbonate Actual 25.4, Total CO2 27, Base Excess -2, O2 Saturation 94 L, ABG pCO2 61.0 H, ABG pO2 88, Foster Test Positive, O2 Delivery Device Cannula, Liter Flow 6.0 10/10/20 05:04: Sodium 132 L, Potassium 5.4 H, Chloride 100, Carbon Dioxide 24.0, BUN 101 H*, Creatinine 4.01 H, Estim Creat Clear Calc 14.20, Est GFR (MDRD) Af Amer 19 L, Est GFR (MDRD) Non-Af 15 L, BUN/Creatinine Ratio 25.2 H, Glucose 121 H, Calcium 8.4 L, Phosphorus 7.5 H, Albumin 2.5 L 10/10/20 05:04: WBC 17.3 H, RBC 3.46 L, Hgb 10.6 L, Hct 34.0 L, MCV 98.3 H, MCH 30.6, MCHC 31.2 L, RDW Std Deviation 52.3 H, RDW Coeff of Willard 14.6, Plt Count 354, MPV 8.9 10/10/20 05:04: PT 38.0 H, INR 3.9 H* 10/10/20 06:52: POC Glucose 125 H 10/10/20 08:11: Specimen Type GRZEGORZ, Sample Site R Brach, VBG pH 7.25 L, VBG pO2 46 H, VBG HCO3 20 L, VBG Total CO2 21 L, VBG O2 Sat (Calc) 74 H, VBG Base Excess -7 L, POC Mix VBG pCO2 Pt Tmp 45.3, O2 Delivery Device BiPAP, POC PEEP 8 10/10/20 08:42: Specimen Type ART, Sample Site R Brach, pH 7.25 L, Bicarbonate Actual 24.1, Total CO2 26, Base Excess -3 L, O2 Saturation 93 L, O2 % 30, ABG pCO2 55.5 H, ABG pO2 80, O2 Delivery Device BiPAP, Vent Mode BiLevel Current Medications Al Hydroxide/Mg Hydroxide (Mag Hydrox/Al Hydrox/Simeth 30 Ml Udc) 30 ml PO Q6H PRN PRN PRN Reason: Gastric Burning Aspirin (Aspirin 81 Mg Tab.Chew) 81 mg PO DAILY@0800 [facility] Last Admin: 10/09/20 08:48 Dose: 81 mg Documented by: Haloperidol Lactate (Haloperidol Lactate 5 Mg/Ml Vial) 2 mg IV Q4H PRN PRN PRN Reason: AGITATION Last Admin: 10/09/20 22:17 Dose: 2 mg Documented by: Heparin Sodium (Beef Lung) (Heparin Pf Lock 10 Units/Ml 50 Units/5 Ml Syringe) 50 units IV UD PRN PRN Reason: PICC Line Heparin Flush Sodium Chloride () 250 mls @ 15 mls/hr IV .[id number] PRN PRN Reason: Saline Flush Sodium Chloride () 250 mls @ 15 mls/hr IV .[id number] PRN PRN Reason: Additional IVPB Infusion Sodium Chloride () 1,000 mls @ 75 mls/hr IV .[id number] [facility] Last Admin: 10/10/20 06:25 Dose: 75 mls/hr Documented by: Meropenem 500 mg/ Sodium (Chloride) 60 mls @ 100 mls/hr IV DAILY@2200 [facility] Last Infusion: 10/09/20 23:35 Dose: Infused Documented by: Insulin Human Lispro (Insulin Lispro 100 Unit/Ml Insuln.Pen) 0 unit SC [facility]; Protocol Last Admin: 10/10/20 06:55 Dose: Not Given Documented by: Melatonin (Melatonin 3 Mg Tablet) 3 mg PO QHS PRN PRN PRN Reason: INSOMNIA Metoprolol Succinate (Metoprolol(Xl)Succ 100 Mg Tablet) 100 mg PO DAILY [facility] Last Admin: 10/09/20 08:48 Dose: 100 mg Documented by: Ondansetron HCl (Ondansetron 4 Mg/2 Ml Vial) 4 mg IV Q8H PRN PRN PRN Reason: NAUSEA/VOMITING Senna/Docusate Sodium (Senna/Docusate Sodium 1 Tablet) 2 tablet PO BID PRN PRN PRN Reason: Constipation Sodium Chloride (0.9% Saline Lock 10 Ml Syringe) 10 - 40 ml IV UD PRN PRN Reason: Open End PICC Flush Last Admin: 10/09/20 08:53 Dose: 10 ml Documented by: Sodium Chloride (0.9 % Nacl (Sterile) Posiflush 10 Ml) 10 - 40 ml IV UD PRN PRN Reason: Port access or dressing change Sodium Chloride (0.9% Saline Lock 10 Ml Syringe) 10 - 40 ml IV UD PRN PRN Reason: SALINE FLUSH STROKE Vital Signs/Narrative: Vital Signs Temp Pulse Resp BP Pulse Ox 10/10/20 07:36 98 10/10/20 07:20 62 21 H 97 10/10/20 07:17 65 10/10/20 06:53 36.2 C L 62 19 H 111/76 94 10/10/20 06:22 36.1 C L 66 21 H 126/60 H 95 Medical Necessity - Tobacco Use Smoking Status: Current every day smoker Assessment/Plan All Active Problems (Last Reviewed 10/07/20 @ 16:[address] Donnie Billings, DO) Pulmonary hypertension (Acute) Dyspnea (Acute) Elevated troponin (Acute) LUIS EDUARDO (acute kidney injury) (Acute) Hyperkalemia (Acute) Encephalopathy (Acute) Acute hemorrhagic colitis (Resolved) Black tarry stools (Resolved) Rectal bleeding (Resolved) 1. Acute kidney injury * continues to worsen * oliguric * And has been steadily going up since around October 02. At that time, his creatinine was 1.39 and now it is 4.01. * FEUrea 355.2% * Hold furosemide, Metformin * Renal US showed medical renal dz * Nephrology following. * 10/10: CINDY Gaviria, plan is to continue IVF and observe. If no evidence of recovery 10/11, then may start HD. 2. Hyperkalemia * overall improved, but still up. continue to monitor * Likely secondary to acute kidney injury 3. elevated troponin * EF down to 50% from 60% in 2018 * start ASA * slight elevation may be from LUIS EDUARDO and demand * cardiology following 4. Encephalopathy * suspected metabolic * ongoing * no focal deficits * Initially felt to be due to oxycodone, which was held on admit, no significant change since * head CT showed involutional changes, but no acute process. * NH3 normal, so not hepatic encephalopathy 5. septic arthritis * pseudomonal * ID and ortho on consult * 10/09: cefepime changed to meropenem in case LUIS EDUARDO from cefepime * Seen by orthopaedics, no plans for intervention at this time. 6. acute hypoxic and hypercapnic respiratory failure * has been on oxygen since 10/02 * wean oxygen as tolerated * currently stable on BiPAP, but high risk for decompensation * already on abx for septic arthritis * 10/09: BiPAP started * unable to perform diuresis at this time given LUIS EDUARDO * pulm consult 7. afib * warfarin held given supratherapeutic INR * will give a dose of vitamin K in anticipation for needing HD catheter 10/11 * metoprolol succinate 8. DM2 * fair control at this time * hold metformin given LUIS EDUARDO * continue SSI 9. VTE prophylaxsi: anticoagulated 10. Prognosis: guarded. Inpatient E&M: 48034 Subs Hosp L3
--- NOTE | 2020-10-10 09:58 | PCM.PN.REN ---
Patient Problems: Active and Suspected Problems (Last Reviewed 10/07/20 @ 16:[address] Donnie Billings, DO) Dyspnea (Acute) Elevated troponin (Acute) LUIS EDUARDO (acute kidney injury) (Acute) Hyperkalemia (Acute) Encephalopathy (Acute) Subjective: pt remains on BIPAP, lethargic. Rising creatinine. WBC improved after started on meropenem. PT spouse at bedside. Discussed option of dialysis. She is to discuss with family. - Physical Exam Vitals/I&O's: Vital Signs Temp Pulse Resp BP Pulse Ox 97.2 F L 62 21 H 111/76 98 10/10/20 06:53 10/10/20 07:20 10/10/20 07:20 10/10/20 06:53 10/10/20 07:36 Oxygen Flow Rate (L/min) 6 Oxygen Delivery Method Bi-pap Weight: 118.1 kg Body Mass Index (BMI) 38.4 Finger Stick Blood Glucose 196 Intake and Output for Last 24 Hours 10/08/20 10/09/20 10/10/20 23:59 23:59 23:59 Intake Total 820 / 820 210 / 210 1000 / 1000 Output Total 800 / 925 475 / 575 175 / 175 Balance 20 / -105 -265 / -365 825 / 825 General: Lethargic, - - on BIPAP Lungs: Diminished Cardiovascular: Regular rate Abdomen: Soft, Non Tender, Hypoactive Bowel Sounds, Obese Extremities: No edema Skin: - - skin discoloration, hyperpigmentation BLE due to venous stasis Musculoskeletal: No Muscle Wasting Neurological: - - lethargic Psych/Mental Status: - - lethargic Microbiology Past 72 Hours 10/07/20 08:40 Mucosa - Nose SARS-CoV-2 Antigen (Rapid) - Final Laboratory Results 10/09/20 10:57: POC Glucose 159 H 10/09/20 12:40: Lactic Acid 1.9 10/09/20 13:59: Specimen Type ART, Sample Site R Brach, pH 7.21 L, Bicarbonate Actual 25.5, Total CO2 28, Base Excess -2, O2 Saturation 85 L, ABG pCO2 63.4 H, ABG pO2 61 L, Foster Test Positive, O2 Delivery Device Cannula, Liter Flow 2.0 10/09/20 16:05: POC Glucose 165 H 10/09/20 16:15: Ammonia 32.0 02/17/21 22:34: POC Glucose 161 H 10/09/20 23:59: Specimen Type ART, Sample Site L Radial, pH 7.23 L, Bicarbonate Actual 25.4, Total CO2 27, Base Excess -2, O2 Saturation 94 L, ABG pCO2 61.0 H, ABG pO2 88, Foster Test Positive, O2 Delivery Device Cannula, Liter Flow 6.0 10/10/20 05:04: Sodium 132 L, Potassium 5.4 H, Chloride 100, Carbon Dioxide 24.0, BUN 101 H*, Creatinine 4.01 H, Estim Creat Clear Calc 14.20, Est GFR (MDRD) Af Amer 19 L, Est GFR (MDRD) Non-Af 15 L, BUN/Creatinine Ratio 25.2 H, Glucose 121 H, Calcium 8.4 L, Phosphorus 7.5 H, Albumin 2.5 L 10/10/20 05:04: WBC 17.3 H, RBC 3.46 L, Hgb 10.6 L, Hct 34.0 L, MCV 98.3 H, MCH 30.6, MCHC 31.2 L, RDW Std Deviation 52.3 H, RDW Coeff of Willard 14.6, Plt Count 354, MPV 8.9 10/10/20 05:04: PT 38.0 H, INR 3.9 H* 10/10/20 06:52: POC Glucose 125 H 10/10/20 08:11: Specimen Type GRZEGORZ, Sample Site R Brach, VBG pH 7.25 L, VBG pO2 46 H, VBG HCO3 20 L, VBG Total CO2 21 L, VBG O2 Sat (Calc) 74 H, VBG Base Excess -7 L, POC Mix VBG pCO2 Pt Tmp 45.3, O2 Delivery Device BiPAP, POC PEEP 8 10/10/20 08:42: Specimen Type ART, Sample Site R Brach, pH 7.25 L, Bicarbonate Actual 24.1, Total CO2 26, Base Excess -3 L, O2 Saturation 93 L, O2 % 30, ABG pCO2 55.5 H, ABG pO2 80, O2 Delivery Device BiPAP, Vent Mode BiLevel Current Medications Al Hydroxide/Mg Hydroxide (Mag Hydrox/Al Hydrox/Simeth 30 Ml Udc) 30 ml PO Q6H PRN PRN PRN Reason: Gastric Burning Aspirin (Aspirin 81 Mg Tab.Chew) 81 mg PO DAILY@0800 [facility] Last Admin: 10/09/20 08:48 Dose: 81 mg Documented by: Haloperidol Lactate (Haloperidol Lactate 5 Mg/Ml Vial) 2 mg IV Q4H PRN PRN PRN Reason: AGITATION Last Admin: 10/09/20 22:17 Dose: 2 mg Documented by: Heparin Sodium (Beef Lung) (Heparin Pf Lock 10 Units/Ml 50 Units/5 Ml Syringe) 50 units IV UD PRN PRN Reason: PICC Line Heparin Flush Sodium Chloride () 250 mls @ 15 mls/hr IV .[id number] PRN PRN Reason: Saline Flush Sodium Chloride () 250 mls @ 15 mls/hr IV .[id number] PRN PRN Reason: Additional IVPB Infusion Sodium Chloride () 1,000 mls @ 75 mls/hr IV .[id number] [facility] Last Admin: 10/10/20 06:25 Dose: 75 mls/hr Documented by: Meropenem 500 mg/ Sodium (Chloride) 60 mls @ 100 mls/hr IV DAILY@2200 [facility] Last Infusion: 10/09/20 23:35 Dose: Infused Documented by: Insulin Human Lispro (Insulin Lispro 100 Unit/Ml Insuln.Pen) 0 unit SC [facility]; Protocol Last Admin: 10/10/20 06:55 Dose: Not Given Documented by: Melatonin (Melatonin 3 Mg Tablet) 3 mg PO QHS PRN PRN PRN Reason: INSOMNIA Metoprolol Succinate (Metoprolol(Xl)Succ 100 Mg Tablet) 100 mg PO DAILY [facility] Last Admin: 10/09/20 08:48 Dose: 100 mg Documented by: Ondansetron HCl (Ondansetron 4 Mg/2 Ml Vial) 4 mg IV Q8H PRN PRN PRN Reason: NAUSEA/VOMITING Senna/Docusate Sodium (Senna/Docusate Sodium 1 Tablet) 2 tablet PO BID PRN PRN PRN Reason: Constipation Sodium Chloride (0.9% Saline Lock 10 Ml Syringe) 10 - 40 ml IV UD PRN PRN Reason: Open End PICC Flush Last Admin: 10/09/20 08:53 Dose: 10 ml Documented by: Sodium Chloride (0.9 % Nacl (Sterile) Posiflush 10 Ml) 10 - 40 ml IV UD PRN PRN Reason: Port access or dressing change Sodium Chloride (0.9% Saline Lock 10 Ml Syringe) 10 - 40 ml IV UD PRN PRN Reason: SALINE FLUSH Medical Necessity - Tobacco Use Smoking Status: Current every day smoker Assessment/Plan All Active Problems (Last Reviewed 10/07/20 @ 16:[address] Donnie Billings, DO) Pulmonary hypertension (Acute) Dyspnea (Acute) Elevated troponin (Acute) LUIS EDUARDO (acute kidney injury) (Acute) Hyperkalemia (Acute) Encephalopathy (Acute) Acute hemorrhagic colitis (Resolved) Black tarry stools (Resolved) Rectal bleeding (Resolved) 1. Acute on CKD Stage 3 due to septic knee. Creatinine continues to rise. Discussed dialysis option. Pt spouse to have family conversation. Will increase iv fluid requirement. Overall prognosis poor. Multiple comorbid conditions. 2. altered mental status, confusion on BIPAP for hypercapnea, hypoventilatory state. 3. Septic rt knee s/p arthroplasty, polyethylene exchanger iv antibx. Leukocytosis improved. ID following. 4. Hyperkalemia off KCL, 5. Chronic afib on anticoagulation 6. Hyponatremia improving with iv fluids, increase iv fluid rate to 125cc/hr 7. Pulmonary hypertension 8. Anemia hgb stable 9. DM2 stable. DW primary service.
[2020-10-10 12:01] LABS: Bedside Glucose 115 mg/dL (70-110)
[2020-10-10 13:44] LABS: International Normalized Ratio 3.8; Prothrombin Time (Protime)PT. 37.3 SECONDS (11.7-14.9)
[2020-10-10] MEDS: Haloperidol Lactate 5 MG/ML Vial IV (15:15)
--- NOTE | 2020-10-10 15:48 | PCM.CON.CC ---
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 Qualifiers: Encounter type: subsequent encounter Qualified Code(s): T84.53XD - Infection and inflammatory reaction due to internal right knee prosthesis, subsequent encounter (3) Venous stasis dermatitis Status: Chronic (4) Atrial fibrillation Status: Chronic (5) Hypertension Status: Chronic (6) Chronic diastolic congestive heart failure Status: Chronic (7) Diabetes mellitus Status: Chronic (8) Overactive bladder Status: Chronic (9) LUIS EDUARDO (acute kidney injury) Status: Acute (10) Encephalopathy Status: Acute (11) Essential hypertension Status: Chronic (12) COPD (chronic obstructive pulmonary disease) Status: Chronic (13) Chronic diastolic heart failure Status: Chronic Reason for Consult Date of Consultation: 10/10/20 Reason for Consultation: Respiratory failure History of Present Illness: The patient is an 80 year old M, with past medical history listed below, who presented to [facility] on 10/07/2020 secondary to shortness of breath and altered mental status. Patient reportedly had presented from the TCU with a 2 to 3-day history of progressive shortness of breath. Patient was originally admitted to the hospital on 09/30/2020 for a septic knee and had surgery by Dr. Cohen. Patient was transferred to TCU on 10/04/2020 and reportedly had not complained of fever or chest pain. In the ER, patient was noted to be in atrial fibrillation with decreased mental status. Patient reportedly was falling asleep frequently during his exam. CBC showed a leukocytosis of 14.4, chemistries with a potassium of 5.8, glucose of 141 and creatinine of 3.03. D-dimer was elevated and INR was 1.9. Patient was hemodynamically stable, so was transferred to the PCU for further evaluation. Over the course of patient's hospital stay, renal function has continued to deteriorate along with respiratory function. Patient is now requiring BiPAP to maintain saturations. On my evaluation, patient's children and are at the bedside. Patient was not able to provide any additional information. Patient reportedly had been agitated last night and was given Haldol and Ativan, but had not been interacting with the family in over 24 hours. Patient reportedly has had decreased mobility recently requiring a walker and other assistive devices secondary to orthopedic issues. Unable to obtain a review of systems secondary to patient's mental status Past Medical History Past Medical History (Chronic Problems): Chronic Problems (Last Reviewed 10/07/20 @ 16:[address] Donnie Billings, ) Septic arthritis of knee, right (Chronic) Debility (Chronic) Infection of prosthetic right knee joint (Chronic) Venous stasis dermatitis (Chronic) Atrial fibrillation (Chronic) Hypertension (Chronic) Chronic diastolic congestive heart failure (Chronic) Diabetes mellitus (Chronic) Gout (Chronic) Hypomagnesemia (Chronic) Overactive bladder (Chronic) Hypokalemia (Chronic) Atrial flutter (Chronic) Hyperlipidemia (Chronic) Essential hypertension (Chronic) Paroxysmal atrial fibrillation (Chronic) COPD (chronic obstructive pulmonary disease) (Chronic) Chronic diastolic heart failure (Chronic) Medical History: Medical History (Last Reviewed 10/07/20 @ 16:[address] Donnie Billings, ) Atrial flutter (Chronic) I48.92 Hyperlipidemia (Chronic) E78.5 Essential hypertension (Chronic) I10 Paroxysmal atrial fibrillation (Chronic) I48.0 COPD (chronic obstructive pulmonary disease) (Chronic) J44.9 Chronic diastolic heart failure (Chronic) I50.32 Anticoagulated on Coumadin Z79.01 Colon polyps K63.5 Diabetic neuropathy E11.40 Gout M10.9 History of spinal stenosis Z87.39 OAB (overactive bladder) N32.81 Osteoarthritis M19.90 Type 2 diabetes mellitus without complication E11.9 Acute hemorrhagic colitis (Resolved) K52.9 Black tarry stools (Resolved) K92.1 Kidney stones N20.0 Rectal bleeding (Resolved) K62.5 Right rotator cuff tear arthropathy M75.101, M12.811 Allergies No Known Allergies Allergy (Verified 10/07/20 08:35) Home Medications: Ambulatory Orders Medication Instructions Recorded metFORMIN HCl [Glucophage] 500 mg PO BIDCM 07/23/15 Amlodipine [Norvasc] 5 mg PO DAILY 03/21/18 Metoprolol(XL)Succ [Toprol Xl 100 mg PO DAILY 02/20/19 (Beta Zeina)] allopurinol 300 mg tablet 300 mg PO DAILY 02/27/19 magnesium 250 mg tablet 250 mg PO DAILY 02/28/19 oxybutynin chloride 5 mg 5 mg PO BID tab 07/23/20 tablet,extended release 24 hr furosemide 40 mg tablet 40 mg PO BID tab 09/19/20 potassium chloride 20 mEq 20 meq PO BID tab 09/19/20 tablet,extended release(part/cryst) Vitamin B Complex 1 tab PO DAILY 09/30/20 Warfarin Sodium 2 mg PO DAILY 09/30/20 Acetaminophen [Tylenol Tablet] 650 mg PO Q6H PRN PRN tab 10/04/20 Cefepime HCl [Maxipime] 2 gm IV Q8 10/04/20 Famotidine [Pepcid] 20 mg PO DAILY 10/04/20 Insulin Lispro [Humalog KwikPen] See Protocol SC ACHS 10/04/20 Mag Hydrox/Al Hydrox/Simeth 30 ml PO Q6H PRN PRN udc 10/04/20 [Mylanta II] Melatonin 3 mg PO QHS PRN PRN tab 10/04/20 Oxycodone [Oxyir] 5 mg PO Q4H PRN PRN 5 Days #20 tab 10/04/20 Senna/Docusate Sodium [Senokot-S] 2 tab PO BID PRN PRN tab 10/04/20 Surgical History: Surgical History (Last Reviewed 10/07/20 @ 16:[address] Donnie Billings DO) History of back surgery Z98.890 History of bilateral knee replacement Z96.653 History of carpal tunnel release of both wrists Z98.890 Hx of shoulder surgery Z98.890 Left Hx of umbilical hernia repair Z98.890, Z87.19 Surgical History: herniorrhaphy - Umbilical., total knee arthroplasty - Bilateral., - - Right wrist fracture, Kidney stones, Bilateral carpal tunnel release, back surgery. Psychiatric History: No pertinent psych hx Smoking Status: Current every day smoker - *Family History Maternal Family History: Family History (Last Reviewed 10/07/20 @ 16:[address] Donnie Billings DO) Brother Diabetes Sister Cancer Grandfather Heart disease Sister Alzheimers disease Sister Parkinson disease History Items: No pertinent history Paternal Family History: Family History (Last Reviewed 10/07/20 @ 16:[address] Donnie Billings DO) Brother Diabetes Sister Cancer Grandfather Heart disease Sister Alzheimers disease Sister Parkinson disease History Items: No pertinent history Sibling Family History: Family History (Last Reviewed 10/07/20 @ 16:[address] Donnie Billings DO) Brother Diabetes Sister Cancer Grandfather Heart disease Sister Alzheimers disease Sister Parkinson disease History Items: Cancer, Diabetes, Heart Disease Review of Systems Comment: See HPI Patient Problems: Active and Suspected Problems (Last Reviewed 10/07/20 @ 16:[address] Donnie Billings DO) Dyspnea (Acute) Elevated troponin (Acute) LUIS EDUARDO (acute kidney injury) (Acute) Hyperkalemia (Acute) Encephalopathy (Acute) Objective: All imaging was personally reviewed and I agree with formal interpretation. Patient did have significant pleural effusions on recent CT of the abdomen. Recent echocardiogram showed an EF of 50% with no regional wall motion abnormality, but elevated pulmonary artery pressures at 42 mmHg. No pulmonary function tests are available for review. - Physical Exam Vitals/I&O's: Vital Signs Temp Pulse Resp BP Pulse Ox 36.1 C L 69 17 109/68 97 10/10/20 11:51 10/10/20 15:25 10/10/20 11:51 10/10/20 11:51 10/10/20 11:51 Oxygen Flow Rate (L/min) 6 Oxygen Delivery Method Bi-pap Weight: 118.1 kg Body Mass Index (BMI) 38.4 Finger Stick Blood Glucose 196 Intake and Output for Last 24 Hours 10/08/20 10/09/20 10/10/20 23:59 23:59 23:59 Intake Total 820 / 820 210 / 210 1373.0 / 1373.0 Output Total 800 / 925 475 / 575 300 / 300 Balance 20 / -105 -265 / -365 1073.0 / 1073.0 General: Lethargic, Non-Cooperative, - - Obese. Anasarca. HEENT: Atraumatic, PERRLA, EOMI, Normocephalic, - - On BiPAP therapy. Leak controlled. Oral: No Gingival or Mucosal Lesions/ Ulcerations, Dry Mucosa Neck: Supple, No Nodes, Trachea Midline, JVD, Right Lungs: No rhonchi, No wheeze, Diminished, Rales, - - Dullness to percussion at the lateral bases Cardiovascular: Normal S1, Normal S2, No murmurs, Irregular Rate, No rub noted, No Gallop Abdomen: Bowel Sounds Present, Soft, Non Tender, Non-Distended, Obese Extremities: No clubbing, No cyanosis, Edema Skin: - - Multiple bandages noted. Anasarca with some weeping noted. Musculoskeletal: No Tenderness to Palpation of Joints or Extremities Lymphatic: No Cervical, Supraclavicular, or Inguinal Adenopathy Neurological: - - Not following commands. Nonfocal neurologic exam, but not following directions. Unable to assess dysarthria or aphasia. Pupils are responsive and reacts to painful stimuli Psych/Mental Status: Impulsive, Restless Laboratory Results 10/09/20 16:05: POC Glucose 165 H 10/09/20 16:15: Ammonia 32.0 10/09/20 22:34: POC Glucose 161 H 10/09/20 23:59: Specimen Type ART, Sample Site L Radial, pH 7.23 L, Bicarbonate Actual 25.4, Total CO2 27, Base Excess -2, O2 Saturation 94 L, ABG pCO2 61.0 H, ABG pO2 88, Foster Test Positive, O2 Delivery Device Cannula, Liter Flow 6.0 10/10/20 05:04: Sodium 132 L, Potassium 5.4 H, Chloride 100, Carbon Dioxide 24.0, BUN 101 H*, Creatinine 4.01 H, Estim Creat Clear Calc 14.20, Est GFR (MDRD) Af Amer 19 L, Est GFR (MDRD) Non-Af 15 L, BUN/Creatinine Ratio 25.2 H, Glucose 121 H, Calcium 8.4 L, Phosphorus 7.5 H, Albumin 2.5 L 10/10/20 05:04: WBC 17.3 H, RBC 3.46 L, Hgb 10.6 L, Hct 34.0 L, MCV 98.3 H, MCH 30.6, MCHC 31.2 L, RDW Std Deviation 52.3 H, RDW Coeff of Willard 14.6, Plt Count 354, MPV 8.9 10/10/20 05:04: PT 38.0 H, INR 3.9 H* 10/10/20 06:52: POC Glucose 125 H 10/10/20 08:11: Specimen Type Cancelled, Sample Site Cancelled, O2 % Cancelled, VBG pH Cancelled, VBG pH (Temp Correct) Cancelled, VBG pCO2 (Temp Corrct Cancelled, VBG pO2 Cancelled, VBG HCO3 Cancelled, VBG Total CO2 Cancelled, VBG O2 Sat (Calc) Cancelled, VBG Base Excess Cancelled, POC Mix VBG pCO2 Pt Tmp Cancelled, Respiration Rate Cancelled, O2 Delivery Device Cancelled, Liter Flow Cancelled, Minute Volume Cancelled, Inspiratory Time Cancelled, Expiratory Time Cancelled, Tidal Volume Cancelled, POC PEEP Cancelled, POC Pressure Suppt Cancelled, Pressure Control Cancelled, EPAP Cancelled, IPAP Cancelled, Blood Gas Comments Cancelled, Blood Gas Notified Whom Cancelled, Blood Gas Notified Time Cancelled 10/10/20 08:42: Specimen Type ART, Sample Site R Brach, pH 7.25 L, Bicarbonate Actual 24.1, Total CO2 26, Base Excess -3 L, O2 Saturation 93 L, O2 % 30, ABG pCO2 55.5 H, ABG pO2 80, O2 Delivery Device BiPAP, Vent Mode BiLevel 10/10/20 11:55: POC Glucose 115 H 10/10/20 13:08: PT 37.3 H, INR 3.8 H* Current Medications Al Hydroxide/Mg Hydroxide (Mag Hydrox/Al Hydrox/Simeth 30 Ml Udc) 30 ml PO Q6H PRN PRN PRN Reason: Gastric Burning Aspirin (Aspirin 81 Mg Tab.Chew) 81 mg PO DAILY@0800 [facility] Last Admin: 10/10/20 11:28 Dose: Not Given Documented by: Fentanyl Citrate (Fentanyl 100 Mcg/2 Ml Ampul) 50 mcg IV X1 ONE Stop: 10/10/20 15:44 Haloperidol Lactate (Haloperidol Lactate 5 Mg/Ml Vial) 2 mg IV Q4H PRN PRN PRN Reason: AGITATION Last Admin: 10/09/20 22:17 Dose: 2 mg Documented by: Heparin Sodium (Beef Lung) (Heparin Pf Lock 10 Units/Ml 50 Units/5 Ml Syringe) 50 units IV UD PRN PRN Reason: PICC Line Heparin Flush Sodium Chloride () 250 mls @ 15 mls/hr IV .[id number] PRN PRN Reason: Saline Flush Sodium Chloride () 250 mls @ 15 mls/hr IV .[id number] PRN PRN Reason: Additional IVPB Infusion Meropenem 500 mg/ Sodium (Chloride) 60 mls @ 100 mls/hr IV DAILY@2200 [facility] Last Infusion: 10/09/20 23:35 Dose: Infused Documented by: Sodium Chloride () 1,000 mls @ 125 mls/hr IV .Q8H [facility] Insulin Human Lispro (Insulin Lispro 100 Unit/Ml Insuln.Pen) 0 unit SC ACHS [facility]; Protocol Last Admin: 10/10/20 12:09 Dose: Not Given Documented by: Melatonin (Melatonin 3 Mg Tablet) 3 mg PO QHS PRN PRN PRN Reason: INSOMNIA Metoprolol Succinate (Metoprolol(Xl)Succ 100 Mg Tablet) 100 mg PO DAILY [facility] Last Admin: 10/10/20 11:28 Dose: Not Given Documented by: Ondansetron HCl (Ondansetron 4 Mg/2 Ml Vial) 4 mg IV Q8H PRN PRN PRN Reason: NAUSEA/VOMITING Senna/Docusate Sodium (Senna/Docusate Sodium 1 Tablet) 2 tablet PO BID PRN PRN PRN Reason: Constipation Sodium Chloride (0.9% Saline Lock 10 Ml Syringe) 10 - 40 ml IV UD PRN PRN Reason: Open End PICC Flush Last Admin: 10/09/20 08:53 Dose: 10 ml Documented by: Sodium Chloride (0.9 % Nacl (Sterile) Posiflush 10 Ml) 10 - 40 ml IV UD PRN PRN Reason: Port access or dressing change Sodium Chloride (0.9% Saline Lock 10 Ml Syringe) 10 - 40 ml IV UD PRN PRN Reason: SALINE FLUSH Assessment/Plan Active and Suspected Problems (Last Reviewed 10/07/20 @ 16:[address] Donnie Billings, DO) Dyspnea (Acute) Elevated troponin (Acute) LUIS EDUARDO (acute kidney injury) (Acute) Hyperkalemia (Acute) Encephalopathy (Acute) RECOMMENDATIONS: 1. Transition CODE STATUS to DNR Comfort Care arrest without intubation 2. Okay to continue with IV fluids tonight 3. Reassess renal function tomorrow 4. No ABG or intubation per family wishes IMPRESSIONS: 1. Acute combined respiratory failure Exact etiology is unclear. Patient with significant acidosis despite BiPAP therapy and appears to be obtunded on my evaluation. Long discussion with the patient's family about goals of therapy. They understood the patient will need an ABG and possible intubation if aggressive measures were to be taken. After extensive conversation, family had decided the patient would not want to be intubated for any reason. They will continue with IV fluids overnight to see if this would help with the renal function, but may decide to use comfort measures tomorrow if not improving. Patient's family is okay with BiPAP for now at the current settings. 2. Acute kidney injury with hyperkalemia Nephrology following. Patient's renal function has not significantly improved. Clinical suspicion for an element of pleural effusion, pulmonary edema and obstructive sleep apnea leading to current findings. Patient also has decreased mental status secondary to uremia. Family is stating they would not be open to dialysis at this time. 3. Metabolic encephalopathy Patient appears to be obtunded on my evaluation. Patient likely has an element of CO2 retention that is inadequately addressed with BiPAP. Given family's goals of therapy, will continue with current therapy. No ABG at this time. 4. Septic arthritis/A. fib/anticoagulated/diabetes mellitus type 2/advanced age/debility/obesity Complicates care, management, recovery and prognosis. Patient does have a supratherapeutic INR at this time. Family has stated they do not want aggressive measures such as dialysis. Metformin is appropriately held secondary to acute kidney injury. Cover with sliding scale insulin. Patient likely has an element of CARLENE, but is getting current tidal volume goals with settings. TIME: 40 minutes critical care time spent addressing patient's acute combined respiratory failure, acute kidney injury, metabolic encephalopathy, addressing CODE STATUS, review of all data and collaboration with care team (2 PM to 4 PM) [id number] Critical care first hour
[2020-10-10] MEDS: 0.9% Normal Saline 1,000 ML 125 ML IV (16:01)
[2020-10-10] MEDS: fentaNYL 100 MCG/2 ML Ampul 50 MCG IV (16:02)
[2020-10-10 16:40] LABS: Bedside Glucose 109 mg/dL (70-110)
[2020-10-10 21:56] LABS: Bedside Glucose 87 mg/dL (70-110)
[2020-10-10 22:41] LABS: Eosinophil Ct. Urine No Eosinophils Seen % (.)
[2020-10-11] VITALS (9 sets, daily range): BP systolic 117–127; BP diastolic 68–76; PULSE 63–79; RESP 12–20; TEMP 36.4–36.6; O2SAT 92–98
[2020-10-11 00:11] LABS: Bedside Glucose 90 mg/dL (70-110)
[2020-10-11] MEDS: 0.9% Normal Saline 1,000 ML 125 ML IV ×2 (01:31→09:23)
[2020-10-11 06:14] LABS: Absolute Lymphocyte Count 0.54 X10^3/uL (0.83-4.51); Absolute Neutrophil Count 16.3 X10^3/uL (2.0-7.7); Basophil# 0.03 X10^3/uL; Basophil% 0.2 % (0-1); Eosinophil# 0.04 X10^3/uL; Eosinophils% 0.2 % (0-5); Hematocrit 33.7 % (40-54); Hemoglobin 10.7 g/dL (13.0-16.5); Lymphocyte # 0.54 X10^3/ul (4.0); Lymphocyte % 2.9 % (19-41); Mean Corp Hgb Conc 31.8 g/dL (32-36); Mean Corpuscular Hgb 31.6 pg (27.0-32.0); Mean Corpuscular Volume 99.4 fL (80-94); Mean Platelet Vol. 8.7 fl (6.2-12.0); Monocyte# 1.33 X10^3/uL; Monocyte% 7.2 % (0-10); NRBC Flagged by Analyzer 0.3 % (0-5); Neutrophil # 16.31 X10^3/uL (2.7-7.7); Neutrophil % 88.5 % (47-70); POSITIVE DIFFERENTIAL YES; Platelet Count 381 K/mm3 (150-450); RBC Distribution Width CV 15.1 % (11.6-14.6); RBC Distribution Width SD 53.7 fl (35.1-43.9); Red Blood Count 3.39 M/mm3 (4.6-6.2); White Blood Count 18.4 K/mm3 (4.4-11.0)
[2020-10-11 06:34] LABS: International Normalized Ratio 1.6; Prothrombin Time (Protime)PT. 18.4 SECONDS (11.7-14.9)
[2020-10-11 06:38] LABS: ALB/GLOB Ratio 0.7 RATIO (0.9-2.4); AST(SGOT) 48 U/L (15-37); Alanine Aminotransfer ALT/SGPT 41 U/L (16-61); Albumin, Serum 2.6 g/dL (3.2-5.0); Alkaline Phosphatase 169 U/L (45-117); Anion Gap 10 (5-15); BUN 100 mg/dL (7-18); BUN/Creat Ratio 23.5 RATIO (10-20); Calcium,Total 8.2 mg/dL (8.5-10.1); Chloride 104 mmol/L (98-107); Creatinine, Serum 4.25 mg/dL (0.70-1.30); EST Glomerular Filtration Rate 14 mL/min (>60); Est Glom Filt Rate - Afr Amer 17 mL/min (>60); Globulin 3.9 g/dL (2.2-4.2); Glucose 77 mg/dL (74-106); Phosphorus 6.9 mg/dL (2.5-4.9); Potassium 5.1 mmol/L (3.5-5.1); Protein, Total 6.5 g/dL (6.4-8.2); Sodium Level 135 mmol/L (136-145)
[2020-10-11 06:50] LABS: Bedside Glucose 77 mg/dL (70-110)
[2020-10-11 06:58] LABS: Differential Indicated SCAN CRITERIA MET
[2020-10-11 07:13] LABS: Differential Comment SCANNED
--- NOTE | 2020-10-11 08:35 | PCM.PN.PUL ---
Patient Problems: Active and Suspected Problems (Last Reviewed 10/07/20 @ 16:[address] Donnie Billings, DO) Pulmonary hypertension (Acute) Dyspnea (Acute) Elevated troponin (Acute) LUIS EDUARDO (acute kidney injury) (Acute) Hyperkalemia (Acute) Encephalopathy (Acute) Subjective: Patient has essentially been dependent on BiPAP overnight. Patient continues to be confused and agitated. No family were at the bedside during my evaluation. - Physical Exam Vitals/I&O's: Vital Signs Temp Pulse Resp BP Pulse Ox 36.4 C L 69 16 127/76 H 94 10/11/20 04:00 10/11/20 07:50 10/11/20 07:20 10/11/20 04:00 10/11/20 07:20 Oxygen Flow Rate (L/min) 6 Oxygen Delivery Method Bi-pap Weight: 120.4 kg Body Mass Index (BMI) 38.4 Finger Stick Blood Glucose 196 Intake and Output for Last 24 Hours 10/09/20 10/10/20 10/11/20 23:59 23:59 23:59 Intake Total 210 / 210 2110.5 / 2110.5 1000 / 1000 Output Total 475 / 575 450 / 600 325 / 325 Balance -265 / -365 1660.5 / 1510.5 675 / 675 General: Confused, Disoriented, Non-Cooperative, - - Spontaneously moving, but not following directions. Anasarca. HEENT: Atraumatic, PERRLA, EOMI, Normocephalic, - - Scleral edema and injection noted. Oral: Moist Mucosa, No Gingival or Mucosal Lesions/ Ulcerations Neck: Supple, No Nodes, Trachea Midline, - - Difficult to assess JVD secondary to body habitus Lungs: No rhonchi, No wheeze, Diminished, Rales, - - Symmetric expansion Cardiovascular: Normal S1, Normal S2, No murmurs, Irregular Rate, No rub noted, No Gallop Abdomen: Bowel Sounds Present, Soft, Non Tender, Non-Distended, Obese Extremities: No cyanosis, Edema Skin: - - Some weeping of the skin Musculoskeletal: No Tenderness to Palpation of Joints or Extremities Lymphatic: No Cervical, Supraclavicular, or Inguinal Adenopathy Neurological: - - Nonfocal neurologic exam. Not following commands. Localizes to sensation. Psych/Mental Status: Impulsive, Restless Microbiology Past 72 Hours 10/09/20 13:02 Blood Culture (Wb) - Left Hand Blood Culture - Preliminary No growth in 48 hours. Laboratory Results 10/08/20 15:45: Eos Smear Total Cells No Eosinophils Seen 10/10/20 08:11: Specimen Type Cancelled, Sample Site Cancelled, O2 % Cancelled, VBG pH Cancelled, VBG pH (Temp Correct) Cancelled, VBG pCO2 (Temp Corrct Cancelled, VBG pO2 Cancelled, VBG HCO3 Cancelled, VBG Total CO2 Cancelled, VBG O2 Sat (Calc) Cancelled, VBG Base Excess Cancelled, POC Mix VBG pCO2 Pt Tmp Cancelled, Respiration Rate Cancelled, O2 Delivery Device Cancelled, Liter Flow Cancelled, Minute Volume Cancelled, Inspiratory Time Cancelled, Expiratory Time Cancelled, Tidal Volume Cancelled, POC PEEP Cancelled, POC Pressure Suppt Cancelled, Pressure Control Cancelled, EPAP Cancelled, IPAP Cancelled, Blood Gas Comments Cancelled, Blood Gas Notified Whom Cancelled, Blood Gas Notified Time Cancelled 10/10/20 08:42: Specimen Type ART, Sample Site R Brach, pH 7.25 L, Bicarbonate Actual 24.1, Total CO2 26, Base Excess -3 L, O2 Saturation 93 L, O2 % 30, ABG pCO2 55.5 H, ABG pO2 80, O2 Delivery Device BiPAP, Vent Mode BiLevel 10/10/20 11:55: POC Glucose 115 H 10/10/20 13:08: PT 37.3 H, INR 3.8 H* 10/10/20 16:05: POC Glucose 109 10/10/20 21:48: POC Glucose 87 10/11/20 00:08: POC Glucose 90 10/11/20 06:00: Sodium 135 L, Potassium 5.1, Chloride 104, Carbon Dioxide 21.0, Anion Gap 10, BUN 100 H, Creatinine 4.25 H, Estim Creat Clear Calc 13.40, Est GFR (MDRD) Af Amer 17 L, Est GFR (MDRD) Non-Af 14 L, BUN/Creatinine Ratio 23.5 H, Glucose 77, Calcium 8.2 L, Phosphorus 6.9 H, Total Bilirubin 1.00, AST 48 H, ALT 41, Alkaline Phosphatase 169 H, Total Protein 6.5, Albumin 2.6 L, Globulin 3.9, Albumin/Globulin Ratio 0.7 L 10/11/20 06:00: WBC 18.4 H, RBC 3.39 L, Hgb 10.7 L, Hct 33.7 L, MCV 99.4 H, MCH 31.6, MCHC 31.8 L, RDW Std Deviation 53.7 H, RDW Coeff of Willard 15.1 H, Plt Count 381, MPV 8.7, Immature Gran % (Auto) 1.000 H, Neut % (Auto) 88.5 H, Lymph % (Auto) 2.9 L, [place] % (Auto) 7.2, Eos % (Auto) 0.2, Baso % (Auto) 0.2, Absolute Neuts (auto) 16.3 H, Absolute Lymphs (auto) 0.54 L, Nucleated RBC % 0.3, Differential Comment SCANNED 10/11/20 06:00: PT 18.4 H, INR 1.6 10/11/20 06:44: POC Glucose 77 Current Medications Al Hydroxide/Mg Hydroxide (Mag Hydrox/Al Hydrox/Simeth 30 Ml Udc) 30 ml PO Q6H PRN PRN PRN Reason: Gastric Burning Aspirin (Aspirin 81 Mg Tab.Chew) 81 mg PO DAILY@0800 [facility] Last Admin: 10/10/20 11:28 Dose: Not Given Documented by: Haloperidol Lactate (Haloperidol Lactate 5 Mg/Ml Vial) 2 mg IV Q4H PRN PRN PRN Reason: AGITATION Last Admin: 10/09/20 22:17 Dose: 2 mg Documented by: Heparin Sodium (Beef Lung) (Heparin Pf Lock 10 Units/Ml 50 Units/5 Ml Syringe) 50 units IV UD PRN PRN Reason: PICC Line Heparin Flush Sodium Chloride () 250 mls @ 15 mls/hr IV .[id number] PRN PRN Reason: Saline Flush Sodium Chloride () 250 mls @ 15 mls/hr IV .[id number] PRN PRN Reason: Additional IVPB Infusion Meropenem 500 mg/ Sodium (Chloride) 60 mls @ 100 mls/hr IV DAILY@2200 [facility] Last Infusion: 10/10/20 22:20 Dose: Infused Documented by: Sodium Chloride () 1,000 mls @ 125 mls/hr IV .Q8H [facility] Last Admin: 10/11/20 01:31 Dose: 125 mls/hr Documented by: Insulin Human Lispro (Insulin Lispro 100 Unit/Ml Insuln.Pen) 0 unit SC ACHS [facility]; Protocol Last Admin: 10/11/20 06:47 Dose: Not Given Documented by: Melatonin (Melatonin 3 Mg Tablet) 3 mg PO QHS PRN PRN PRN Reason: INSOMNIA Metoprolol Succinate (Metoprolol(Xl)Succ 100 Mg Tablet) 100 mg PO DAILY [facility] Last Admin: 10/10/20 11:28 Dose: Not Given Documented by: Ondansetron HCl (Ondansetron 4 Mg/2 Ml Vial) 4 mg IV Q8H PRN PRN PRN Reason: NAUSEA/VOMITING Senna/Docusate Sodium (Senna/Docusate Sodium 1 Tablet) 2 tablet PO BID PRN PRN PRN Reason: Constipation Sodium Chloride (0.9% Saline Lock 10 Ml Syringe) 10 - 40 ml IV UD PRN PRN Reason: Open End PICC Flush Last Admin: 10/09/20 08:53 Dose: 10 ml Documented by: Sodium Chloride (0.9 % Nacl (Sterile) Posiflush 10 Ml) 10 - 40 ml IV UD PRN PRN Reason: Port access or dressing change Sodium Chloride (0.9% Saline Lock 10 Ml Syringe) 10 - 40 ml IV UD PRN PRN Reason: SALINE FLUSH Medical Necessity - Tobacco Use Smoking Status: Current every day smoker Assessment/Plan All Active Problems (Last Reviewed 10/07/20 @ 16:[address] Donnie Billings, DO) Pulmonary hypertension (Acute) Dyspnea (Acute) Elevated troponin (Acute) LUIS EDUARDO (acute kidney injury) (Acute) Hyperkalemia (Acute) Encephalopathy (Acute) Acute hemorrhagic colitis (Resolved) Black tarry stools (Resolved) Rectal bleeding (Resolved) RECOMMENDATIONS: 1. Discuss with family about hospice measures 2. Consider addition of pain and anxiety medications 3. Await family decision 4. No ABG or intubation per family wishes IMPRESSIONS: 1. Acute combined respiratory failure Exact etiology is unclear. Given discussion with family yesterday, there is likely patient will receive palliative measures later today. No family was at bedside to discuss. Still requiring BiPAP therapy to maintain saturations, but renal function is deteriorating despite IV fluids. Without control of fluid status with dialysis or improved renal function, intubation would likely only prolong life temporarily without allowing for significant improvement in survival. 2. Acute kidney injury with hyperkalemia Nephrology following. Patient's renal function has not significantly improved. Clinical suspicion for an element of pleural effusion, pulmonary edema and obstructive sleep apnea leading to current findings. Patient also has decreased mental status secondary to uremia. Family is stating they would not be open to dialysis at this time. 3. Metabolic encephalopathy Patient appears to be obtunded on my evaluation. Patient likely has an element of CO2 retention that is inadequately addressed with BiPAP. Given family's goals of therapy, will continue with current therapy. No ABG at this time. 4. Septic arthritis/A. fib/anticoagulated/diabetes mellitus type 2/advanced age/debility/obesity Complicates care, management, recovery and prognosis. Patient does have a supratherapeutic INR at this time. Family has stated they do not want aggressive measures such as dialysis. Metformin is appropriately held secondary to acute kidney injury. Cover with sliding scale insulin. Patient likely has an element of CARLENE, but is getting current tidal volume goals with settings. Inpatient E&M: [id number] [facility] L[facility]
--- NOTE | 2020-10-11 10:11 | CASEMGMT ---
Per physician patient and family would like [facility] and possibly their inpatient unit (IPU). SW met with family, introduced self and role at [facility]. SW confirmed they would like [facility] and possible IPU. Patient's is aware Hospice will be calling her. SW called Hospice and spoke with George regarding referral. SW also faxed information. Seble SPENCER MSW
--- NOTE | 2020-10-11 10:13 | NURSING ---
family @ bedside , they have decided on Hospice, changed to nc @ 6l pulse ox 92%
--- NOTE | 2020-10-11 10:21 | NURSING ---
Dr Billings had been in and talked with family about pt's condition. family opted for Hospice and patient will be transferred to the inpatient unit today.
--- NOTE | 2020-10-11 10:48 | PN.ORTHO_ITS ---
Patient Problems: Active and Suspected Problems (Last Reviewed 10/07/20 @ 16:[address] Donnie Billings, DO) Pulmonary hypertension (Acute) Dyspnea (Acute) Elevated troponin (Acute) LUIS EDUARDO (acute kidney injury) (Acute) Hyperkalemia (Acute) Encephalopathy (Acute) Subjective: Patient states he does not having knee pain although he is confused family at bedside - Physical Exam Vitals/I&O's: Vital Signs Temp Pulse Resp BP Pulse Ox 97.9 F 63 20 H 122/71 H 92 10/11/20 09:17 10/11/20 09:57 10/11/20 09:17 10/11/20 09:17 10/11/20 09:57 Oxygen Flow Rate (L/min) 6 Oxygen Delivery Method Nasal Cannula Weight: 265 lb 6.985 oz Body Mass Index (BMI) 38.4 Finger Stick Blood Glucose 196 Intake and Output for Last 24 Hours 10/09/20 10/10/20 10/11/20 23:59 23:59 23:59 Intake Total 210 / 210 2110.5 / 2110.5 1982.33 / 1982.33 Output Total 475 / 575 450 / 600 325 / 325 Balance -265 / -365 1660.5 / 1510.5 1658.33 / 1658.33 General: Cooperative, Confused Extremities: - - There is increased serous drainage on dressing today compared to the it has been changed daily no erythema. Microbiology Past 72 Hours 10/09/20 13:02 Blood Culture (Wb) - Left Hand Blood Culture - Preliminary No growth in 48 hours. Laboratory Results 10/08/20 15:45: Eos Smear Total Cells No Eosinophils Seen 10/10/20 08:11: Specimen Type Cancelled, Sample Site Cancelled, O2 % Cancelled, VBG pH Cancelled, VBG pH (Temp Correct) Cancelled, VBG pCO2 (Temp Corrct Cancelled, VBG pO2 Cancelled, VBG HCO3 Cancelled, VBG Total CO2 Cancelled, VBG O2 Sat (Calc) Cancelled, VBG Base Excess Cancelled, POC Mix VBG pCO2 Pt Tmp Cancelled, Respiration Rate Cancelled, O2 Delivery Device Cancelled, Liter Flow Cancelled, Minute Volume Cancelled, Inspiratory Time Cancelled, Expiratory Time Cancelled, Tidal Volume Cancelled, POC PEEP Cancelled, POC Pressure Suppt Cancelled, Pressure Control Cancelled, EPAP Cancelled, IPAP Cancelled, Blood Gas Comments Cancelled, Blood Gas Notified Whom Cancelled, Blood Gas Notified Time Cancelled 10/10/20 11:55: POC Glucose 115 H 10/10/20 13:08: PT 37.3 H, INR 3.8 H* 10/10/20 16:05: POC Glucose 109 10/10/20 21:48: POC Glucose 87 10/11/20 00:08: POC Glucose 90 10/11/20 06:00: Sodium 135 L, Potassium 5.1, Chloride 104, Carbon Dioxide 21.0, Anion Gap 10, BUN 100 H, Creatinine 4.25 H, Estim Creat Clear Calc 13.40, Est GFR (MDRD) Af Amer 17 L, Est GFR (MDRD) Non-Af 14 L, BUN/Creatinine Ratio 23.5 H , Glucose 77, Calcium 8.2 L, Phosphorus 6.9 H, Total Bilirubin 1.00, AST 48 H, ALT 41, Alkaline Phosphatase 169 H, Total Protein 6.5, Albumin 2.6 L, Globulin 3.9, Albumin/Globulin Ratio 0.7 L 10/11/20 06:00: WBC 18.4 H, RBC 3.39 L, Hgb 10.7 L, Hct 33.7 L, MCV 99.4 H, MCH 31.6, MCHC 31.8 L, RDW Std Deviation 53.7 H, RDW Coeff of Willard 15.1 H, Plt Count 381, MPV 8.7, Immature Gran % (Auto) 1.000 H, Neut % (Auto) 88.5 H, Lymph % (Auto) 2.9 L, [place] % (Auto) 7.2, Eos % (Auto) 0.2, Baso % (Auto) 0.2, Absolute Neuts (auto) 16.3 H, Absolute Lymphs (auto) 0.54 L, Nucleated RBC % 0.3, Differential Comment SCANNED 10/11/20 06:00: PT 18.4 H, INR 1.6 10/11/20 06:44: POC Glucose 77 Current Medications Al Hydroxide/Mg Hydroxide (Mag Hydrox/Al Hydrox/Simeth 30 Ml Udc) 30 ml PO Q6H PRN PRN PRN Reason: Gastric Burning Haloperidol Lactate (Haloperidol Lactate 5 Mg/Ml Vial) 2 mg IV Q4H PRN PRN PRN Reason: AGITATION Last Admin: 10/09/20 22:17 Dose: 2 mg Documented by: Sodium Chloride () 250 mls @ 15 mls/hr IV .[id number] PRN PRN Reason: Saline Flush Sodium Chloride () 250 mls @ 15 mls/hr IV .[id number] PRN PRN Reason: Additional IVPB Infusion Lorazepam (Lorazepam 2 Mg/Ml Bottle) 1 mg PO Q4H PRN PRN PRN Reason: ANXIETY/AGITATION Melatonin (Melatonin 3 Mg Tablet) 3 mg PO QHS PRN PRN PRN Reason: INSOMNIA Morphine Sulfate (Morphine (Oral Solution) 10mg/0.5ml Syringe) 10 mg SL/PO Q1H PRN PRN PRN Reason: dyspnea, pain Ondansetron HCl (Ondansetron 4 Mg/2 Ml Vial) 4 mg IV Q8H PRN PRN PRN Reason: NAUSEA/VOMITING Senna/Docusate Sodium (Senna/Docusate Sodium 1 Tablet) 2 tablet PO BID PRN PRN PRN Reason: Constipation Sodium Chloride (0.9% Saline Lock 10 Ml Syringe) 10 - 40 ml IV UD PRN PRN Reason: Open End PICC Flush Last Admin: 10/09/20 08:53 Dose: 10 ml Documented by: Sodium Chloride (0.9 % Nacl (Sterile) Posiflush 10 Ml) 10 - 40 ml IV UD PRN PRN Reason: Port access or dressing change Sodium Chloride (0.9% Saline Lock 10 Ml Syringe) 10 - 40 ml IV UD PRN PRN Reason: SALINE FLUSH Medical Necessity - Tobacco Use Smoking Status: Current every day smoker Assessment/Plan All Active Problems (Last Reviewed 10/07/20 @ 16:[address] Donnie Billings, DO) Pulmonary hypertension (Acute) Dyspnea (Acute) Elevated troponin (Acute) LUIS EDUARDO (acute kidney injury) (Acute) Hyperkalemia (Acute) Encephalopathy (Acute) Acute hemorrhagic colitis (Resolved) Black tarry stools (Resolved) Rectal bleeding (Resolved) discussed with family about considering further surgery for removal of hardware and antibiotic spacer if infection not cleared however they do not wish any further surgical intervention and are moving forward with hospice. Which is to be removed 3 weeks postop, and be done in hospice facility.
[2020-10-11 11:06] LABS: Bedside Glucose 85 mg/dL (70-110)
--- NOTE | 2020-10-11 12:01 | DCINST_ITS ---
- Discharge Diagnoses Current Active Problems: Current Active and Chronic Problems (Last Reviewed 10/07/20 @ 16:[address] 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) Venous stasis dermatitis (Chronic) Atrial fibrillation (Chronic) Hypertension (Chronic) Chronic diastolic congestive heart failure (Chronic) Diabetes mellitus (Chronic) Gout (Chronic) Hypomagnesemia (Chronic) Overactive bladder (Chronic) Hypokalemia (Chronic) Dyspnea (Acute) Elevated troponin (Acute) LUIS EDUARDO (acute kidney injury) (Acute) Hyperkalemia (Acute) Encephalopathy (Acute) Atrial flutter (Chronic) Hyperlipidemia (Chronic) Essential hypertension (Chronic) Paroxysmal atrial fibrillation (Chronic) COPD (chronic obstructive pulmonary disease) (Chronic) Chronic diastolic heart failure (Chronic) Allergies/Adverse Reactions: Allergies No Known Allergies Allergy (Verified 10/07/20 08:35) Medications to take at Discharge metFORMIN HCl [Glucophage] 500 mg PO BIDCM 07/23/15 Amlodipine [Norvasc] 5 mg PO DAILY 03/21/18 Metoprolol(XL)Succ [Toprol Xl (Beta Zeina)] 100 mg PO DAILY 02/20/19 allopurinol 300 mg tablet 300 mg PO DAILY 02/27/19 magnesium 250 mg tablet 250 mg PO DAILY 02/28/19 oxybutynin chloride 5 mg tablet,extended release 24 hr 5 mg PO BID tab 07/23/20 furosemide 40 mg tablet 40 mg PO BID tab 09/19/20 potassium chloride 20 mEq tablet,extended release(part/cryst) 20 meq PO BID tab 09/19/20 Vitamin B Complex 1 tab PO DAILY 09/30/20 Warfarin Sodium 2 mg PO DAILY 09/30/20 Acetaminophen [Tylenol Tablet] 650 mg PO Q6H PRN PRN tab 10/04/20 Cefepime HCl [Maxipime] 2 gm IV Q8 10/04/20 Famotidine [Pepcid] 20 mg PO DAILY 10/04/20 Insulin Lispro [Humalog KwikPen] See Protocol SC ACHS 10/04/20 Mag Hydrox/Al Hydrox/Simeth [Mylanta II] 30 ml PO Q6H PRN PRN udc 10/04/20 Melatonin 3 mg PO QHS PRN PRN tab 10/04/20 Oxycodone [Oxyir] 5 mg PO Q4H PRN PRN 5 Days #20 tab 10/04/20 Senna/Docusate Sodium [Senokot-S] 2 tab PO BID PRN PRN tab 10/04/20 Lorazepam Intensol [Ativan Intensol] 1 mg PO Q4H PRN PRN bottle 10/11/20 morphine solution (IR) [Roxanol (IR oral solution)] 10 mg SL/PO Q1H PRN PRN 1 Days #1 po.syringe 10/11/20 Primary Care Physician: Man Cha MD [Primary Care Provider] - Test Results: Test results from this visit will be discussed in further detail at your follow- up appointment, if applicable. Proposed Discharge Date: 10/11/20
--- NOTE | 2020-10-11 12:36 | CASEMGMT ---
Addendum entered by Seble Mcmahon 10/11/20 13:26: Patient's transport was changed to 1500 by [facility]. SW notified patient's , RNAriana at Hospice, and secretary book keeper. Plan: d/c to [facility] Inpatient Unit. Seble HANSON Original Note: Hospice spoke with patient's family and they agreed to have him go to the inpatient unit at Hospice. SW also received a call from George at [facility] and patient has been approved to go to their inpatient unit. SW will need to set up transportation. SW faxed DNR, HCPOA, and Living Will to Hospice. FRANKLYN arranged for patient to get picked up via cot by [facility] at 1430. As soon as [facility] verifies this time SW will notify RN, secretary book keeper, family, and Hospice. Plan: d/c to [facility]patient Unit. [facility] will transport via cot. Seble AHNSON
--- NOTE | 2020-10-11 13:23 | PN.RENAL_ITS ---
Patient Problems: Active and Suspected Problems (Last Reviewed 10/07/20 @ 16:[address] Donnie Billings, DO) Pulmonary hypertension (Acute) Dyspnea (Acute) Elevated troponin (Acute) LUIS EDUARDO (acute kidney injury) (Acute) Hyperkalemia (Acute) Encephalopathy (Acute) Subjective: remains confused, encephalopathic. Elevated WBC persists, creatinine continues to rise. Family ( and 2 children) at bedside. Decided on hospice, comfort care which is appropriate. Answered questions to their satisfaction. Will sign off. - Physical Exam Vitals/I&O's: Vital Signs Temp Pulse Resp BP Pulse Ox 97.9 F 79 18 117/68 92 10/11/20 09:17 10/11/20 11:53 10/11/20 11:50 10/11/20 11:50 10/11/20 11:50 Oxygen Flow Rate (L/min) 6 Oxygen Delivery Method Nasal Cannula Weight: 120.4 kg Body Mass Index (BMI) 38.4 Finger Stick Blood Glucose 196 Intake and Output for Last 24 Hours 10/09/20 10/10/20 10/11/20 23:59 23:59 23:59 Intake Total 210 / 210 2110.5 / 2110.5 1982.33 / 1982.33 Output Total 475 / 575 450 / 600 325 / 325 Balance -265 / -365 1660.5 / 1510.5 1658.33 / 1658.33 Microbiology Past 72 Hours 10/09/20 13:02 Blood Culture (Wb) - Left Hand Blood Culture - Preliminary No growth in 48 hours. Laboratory Results 10/08/20 15:45: Eos Smear Total Cells No Eosinophils Seen 10/10/20 13:08: PT 37.3 H, INR 3.8 H* 10/10/20 16:05: POC Glucose 109 10/10/20 21:48: POC Glucose 87 10/11/20 00:08: POC Glucose 90 10/11/20 06:00: Sodium 135 L, Potassium 5.1, Chloride 104, Carbon Dioxide 21.0, Anion Gap 10, BUN 100 H, Creatinine 4.25 H, Estim Creat Clear Calc 13.40, Est GFR (MDRD) Af Amer 17 L, Est GFR (MDRD) Non-Af 14 L, BUN/Creatinine Ratio 23.5 H , Glucose 77, Calcium 8.2 L, Phosphorus 6.9 H, Total Bilirubin 1.00, AST 48 H, ALT 41, Alkaline Phosphatase 169 H, Total Protein 6.5, Albumin 2.6 L, Globulin 3.9, Albumin/Globulin Ratio 0.7 L 10/11/20 06:00: WBC 18.4 H, RBC 3.39 L, Hgb 10.7 L, Hct 33.7 L, MCV 99.4 H, MCH 31.6, MCHC 31.8 L, RDW Std Deviation 53.7 H, RDW Coeff of Willard 15.1 H, Plt Count 381, MPV 8.7, Immature Gran % (Auto) 1.000 H, Neut % (Auto) 88.5 H, Lymph % (Auto) 2.9 L, [place] % (Auto) 7.2, Eos % (Auto) 0.2, Baso % (Auto) 0.2, Absolute Neuts (auto) 16.3 H, Absolute Lymphs (auto) 0.54 L, Nucleated RBC % 0.3, Diffe rential Comment SCANNED 10/11/20 06:00: PT 18.4 H, INR 1.6 10/11/20 06:44: POC Glucose 77 10/11/20 11:00: POC Glucose 85 Current Medications Al Hydroxide/Mg Hydroxide (Mag Hydrox/Al Hydrox/Simeth 30 Ml Udc) 30 ml PO Q6H PRN PRN PRN Reason: Gastric Burning Haloperidol Lactate (Haloperidol Lactate 5 Mg/Ml Vial) 2 mg IV Q4H PRN PRN PRN Reason: AGITATION Last Admin: 10/09/20 22:17 Dose: 2 mg Documented by: Sodium Chloride () 250 mls @ 15 mls/hr IV .[id number] PRN PRN Reason: Saline Flush Sodium Chloride () 250 mls @ 15 mls/hr IV .[id number] PRN PRN Reason: Additional IVPB Infusion Lorazepam (Lorazepam 2 Mg/Ml Bottle) 1 mg PO Q4H PRN PRN PRN Reason: ANXIETY/AGITATION Melatonin (Melatonin 3 Mg Tablet) 3 mg PO QHS PRN PRN PRN Reason: INSOMNIA Morphine Sulfate (Morphine (Oral Solution) 10mg/0.5ml Syringe) 10 mg SL/PO Q1H PRN PRN PRN Reason: dyspnea, pain Ondansetron HCl (Ondansetron 4 Mg/2 Ml Vial) 4 mg IV Q8H PRN PRN PRN Reason: NAUSEA/VOMITING Senna/Docusate Sodium (Senna/Docusate Sodium 1 Tablet) 2 tablet PO BID PRN PRN PRN Reason: Constipation Sodium Chloride (0.9% Saline Lock 10 Ml Syringe) 10 - 40 ml IV UD PRN PRN Reason: Open End PICC Flush Last Admin: 10/09/20 08:53 Dose: 10 ml Documented by: Sodium Chloride (0.9 % Nacl (Sterile) Posiflush 10 Ml) 10 - 40 ml IV UD PRN PRN Reason: Port access or dressing change Sodium Chloride (0.9% Saline Lock 10 Ml Syringe) 10 - 40 ml IV UD PRN PRN Reason: SALINE FLUSH Medical Necessity - Tobacco Use Smoking Status: Current every day smoker Assessment/Plan All Active Problems (Last Reviewed 10/07/20 @ 16:[address] Donnie Billings, DO) Pulmonary hypertension (Acute) Dyspnea (Acute) Elevated troponin (Acute) LUIS EDUARDO (acute kidney injury) (Acute) Hyperkalemia (Acute) Encephalopathy (Acute) Acute hemorrhagic colitis (Resolved) Black tarry stools (Resolved) Rectal bleeding (Resolved)
--- NOTE | 2020-10-11 14:08 | NURSING ---
report called to Hospice Inpatient Unit [phone], planned pick-up 1500, family remains @ bedside
--- NOTE | 2020-10-11 14:37 | DS.PCM_ITS ---
Discharge Date and Diagnosis - Problem List Patient Problems: Active and Suspected Problems (Last Reviewed 10/07/20 @ 16:[address] Donnie Billings DO) Pulmonary hypertension (Acute) Dyspnea (Acute) Elevated troponin (Acute) LUIS EDUARDO (acute kidney injury) (Acute) Hyperkalemia (Acute) Encephalopathy (Acute) Date of Admission: 10/07/20 Date of Discharge: 10/11/20 - Primary Discharge Diagnosis Acute Problems: Active Problems (Last Reviewed 10/07/20 @ 16:[address] Donnie Billings DO) Pulmonary hypertension (Acute) Dyspnea (Acute) Elevated troponin (Acute) LUIS EDUARDO (acute kidney injury) (Acute) Hyperkalemia (Acute) Encephalopathy (Acute) - Secondary Discharge Diagnosis Chronic Problems: Chronic Problems (Last Reviewed 10/07/20 @ 16:[address] 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) Venous stasis dermatitis (Chronic) Atrial fibrillation (Chronic) Hypertension (Chronic) Chronic diastolic congestive heart failure (Chronic) Diabetes mellitus (Chronic) Gout (Chronic) Hypomagnesemia (Chronic) Overactive bladder (Chronic) Hypokalemia (Chronic) Atrial flutter (Chronic) Hyperlipidemia (Chronic) Essential hypertension (Chronic) Paroxysmal atrial fibrillation (Chronic) COPD (chronic obstructive pulmonary disease) (Chronic) Chronic diastolic heart failure (Chronic) Hospital Course and Treatment Imaging Results: Clinical Impression(s) from Imaging Studies Chest X-Ray 10/07/20 08:34 IMPRESSION: Poor inspiration with some bibasilar atelectasis. Electronically Signed: Saul Maldonado MD at 8:59 EST Tel , Service support , Brain CT 10/07/20 16:37 IMPRESSION: Chronic involutional changes of the brain. Electronically Signed: Saul Maldonado MD at 17:37 EST Tel , Service support , Renal Ultrasound 10/08/20 07:42 IMPRESSION: 1. Nonvisualization of the left kidney. 2. Chronic medical renal disease the right kidney but no hydronephrosis to suggest obstruction. 3. Small amount of ascites. 4. Left-sided pleural effusion. Electronically Signed: Saul Maldonado MD at 10:23 EST Tel , Service support , Chest X-Ray 10/09/20 11:59 IMPRESSION: Stable examination. 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 Cohen for I&D and poly exchange. Procedures: 2-D Echocardiogram Summary of Care Provided: The patient is a 80 year old M presents with confusion and worsening renal failure and shortness of breath. Patient's confusion is that she felt to be related to narcotics which were immediately held however did persist. Patient's renal failure has continued to worsen despite IV fluids and changing his antibiotics from cefepime to meropenem. Conversations were held with patient's family and the options of aggressive medical treatment, including dialysis and intubation versus comfort measures were offered to them. They feel that the patient would not want aggressive intervention and wished to proceed with hospice. Hospice services were contacted and I spoke with the hospice physician today and the patient will be transferred to the inpatient hospice unit in guarded but stable condition. Patient was taken off BiPAP and monitored and remained stable. Discussed with the hospice physician and patient will be discharged. 1. Acute kidney injury * continues to worsen * oliguric * And has been steadily going up since around October 02. At that time, his creatinine was 1.39 and now it is 4.25. * FEUrea 355.2% * Hold furosemide, Metformin * Renal US showed medical renal dz * Nephrology following. * 10/10: DW Dr. Gaviria, plan is to continue IVF and observe. If no evidence of recovery 10/11, then may start HD. * 10/11: family does not feel patient would want HD and are choosing hospice 2. Hyperkalemia * overall improved, but still up. continue to monitor * Likely secondary to acute kidney injury 3. elevated troponin * EF down to 50% from 60% in 2018 * start ASA * slight elevation may be from LUIS EDUARDO and demand * cardiology following 4. Encephalopathy * suspected metabolic * ongoing * no focal deficits * Initially felt to be due to oxycodone, which was held on admit, no significant change since * head CT showed involutional changes, but no acute process. * NH3 normal, so not hepatic encephalopathy 5. septic arthritis * pseudomonal * ID and ortho on consult * 10/09: cefepime changed to meropenem in case LUIS EDUARDO from cefepime * Seen by orthopaedics, no plans for intervention at this time. 6. acute hypoxic and hypercapnic respiratory failure * has been on oxygen since 10/02 * wean oxygen as tolerated * currently stable on BiPAP, but high risk for decompensation * already on abx for septic arthritis * 10/09: BiPAP started * unable to perform diuresis at this time given LUIS EDUARDO * pulm consult * 10/12: hospice decided upon. DC bipap 7. afib * warfarin held given supratherapeutic INR * will give a dose of vitamin K in anticipation for needing HD catheter 10/11 * metoprolol succinate 8. DM2 * fair control at this time * hold metformin given LUIS EDUARDO * continue SSI [] Patient Problems: Active and Suspected Problems (Last Reviewed 10/07/20 @ 16:[address] Donnie Billings, DO) Pulmonary hypertension (Acute) Dyspnea (Acute) Elevated troponin (Acute) LUIS EDUARDO (acute kidney injury) (Acute) Hyperkalemia (Acute) Encephalopathy (Acute) - Physical Exam Vitals/I&O's: Vital Signs Temp Pulse Resp BP Pulse Ox 36.6 C 79 18 117/68 92 10/11/20 09:17 10/11/20 11:53 10/11/20 11:50 10/11/20 11:50 10/11/20 11:50 Oxygen Flow Rate (L/min) 6 Oxygen Delivery Method Nasal Cannula Weight: 120.4 kg Body Mass Index (BMI) 38.4 Finger Stick Blood Glucose 196 Intake and Output for Last 24 Hours 10/09/20 10/10/20 10/11/20 23:59 23:59 23:59 Intake Total 210 / 210 2110.5 / 2110.5 1982.33 / 1982.33 Output Total 475 / 575 450 / 600 325 / 325 Balance -265 / -365 1660.5 / 1510.5 1658.33 / 1658.33 General: Confused, - - Mumbling incoherently though was able to tell me his name. HEENT: Atraumatic, Normocephalic Oral: Moist Mucosa, No Gingival or Mucosal Lesions/ Ulcerations Neck: No Nodes, Thyroid Normal Size and Texture Lungs: Diminished, - - coarse breath sounds Cardiovascular: Regular rate, Regular Rhythm, Normal S1, Normal S2, No murmurs Abdomen: Bowel Sounds Present, Soft, Non Tender, No Hepato-splenomegaly, Distended Psych/Mental Status: Normal Affect, Appropriate Microbiology Past 72 Hours 10/09/20 13:02 Blood Culture (Wb) - Left Hand Blood Culture - Preliminary No growth in 48 hours. Laboratory Results 10/08/20 15:45: Eos Smear Total Cells No Eosinophils Seen 10/10/20 16:05: POC Glucose 109 10/10/20 21:48: POC Glucose 87 10/11/20 00:08: POC Glucose 90 10/11/20 06:00: Sodium 135 L, Potassium 5.1, Chloride 104, Carbon Dioxide 21.0, Anion Gap 10, BUN 100 H, Creatinine 4.25 H, Estim Creat Clear Calc 13.40, Est GFR (MDRD) Af Amer 17 L, Est GFR (MDRD) Non-Af 14 L, BUN/Creatinine Ratio 23.5 H , Glucose 77, Calcium 8.2 L, Phosphorus 6.9 H, Total Bilirubin 1.00, AST 48 H, ALT 41, Alkaline Phosphatase 169 H, Total Protein 6.5, Albumin 2.6 L, Globulin 3.9, Albumin/Globulin Ratio 0.7 L 10/11/20 06:00: WBC 18.4 H, RBC 3.39 L, Hgb 10.7 L, Hct 33.7 L, MCV 99.4 H, MCH 31.6, MCHC 31.8 L, RDW Std Deviation 53.7 H, RDW Coeff of [place] 15.1 H, Plt Count 381, MPV 8.7, Immature Gran % (Auto) 1.000 H, Neut % (Auto) 88.5 H, Lymph % (Au to) 2.9 L, [place] % (Auto) 7.2, Eos % (Auto) 0.2, Baso % (Auto) 0.2, Absolute Neuts (auto) 16.3 H, Absolute Lymphs (auto) 0.54 L, Nucleated RBC % 0.3, Differential Comment SCANNED 10/11/20 06:00: PT 18.4 H, INR 1.6 10/11/20 06:44: POC Glucose 77 10/11/20 11:00: POC Glucose 85 Current Medications Al Hydroxide/Mg Hydroxide (Mag Hydrox/Al Hydrox/Simeth 30 Ml Udc) 30 ml PO Q6H PRN PRN PRN Reason: Gastric Burning Haloperidol Lactate (Haloperidol Lactate 5 Mg/Ml Vial) 2 mg IV Q4H PRN PRN PRN Reason: AGITATION Last Admin: 10/09/20 22:17 Dose: 2 mg Documented by: Sodium Chloride () 250 mls @ 15 mls/hr IV .[id number] PRN PRN Reason: Saline Flush Sodium Chloride () 250 mls @ 15 mls/hr IV .[id number] PRN PRN Reason: Additional IVPB Infusion Lorazepam (Lorazepam 2 Mg/Ml Bottle) 1 mg PO Q4H PRN PRN PRN Reason: ANXIETY/AGITATION Melatonin (Melatonin 3 Mg Tablet) 3 mg PO QHS PRN PRN PRN Reason: INSOMNIA Morphine Sulfate (Morphine (Oral Solution) 10mg/0.5ml Syringe) 10 mg SL/PO Q1H PRN PRN PRN Reason: dyspnea, pain Ondansetron HCl (Ondansetron 4 Mg/2 Ml Vial) 4 mg IV Q8H PRN PRN PRN Reason: NAUSEA/VOMITING Senna/Docusate Sodium (Senna/Docusate Sodium 1 Tablet) 2 tablet PO BID PRN PRN PRN Reason: Constipation Sodium Chloride (0.9% Saline Lock 10 Ml Syringe) 10 - 40 ml IV UD PRN PRN Reason: Open End PICC Flush Last Admin: 10/09/20 08:53 Dose: 10 ml Documented by: Sodium Chloride (0.9 % Nacl (Sterile) Posiflush 10 Ml) 10 - 40 ml IV UD PRN PRN Reason: Port access or dressing change Sodium Chloride (0.9% Saline Lock 10 Ml Syringe) 10 - 40 ml IV UD PRN PRN Reason: SALINE FLUSH Home Medications: Medications to take at Discharge metFORMIN HCl [Glucophage] 500 mg PO BIDCM 07/23/15 Amlodipine [Norvasc] 5 mg PO DAILY 03/21/18 Metoprolol(XL)Succ [Toprol Xl (Beta Zeina)] 100 mg PO DAILY 02/20/19 allopurinol 300 mg tablet 300 mg PO DAILY 02/27/19 magnesium 250 mg tablet 250 mg PO DAILY 02/28/19 oxybutynin chloride 5 mg tablet,extended release 24 hr 5 mg PO BID tab 07/23/20 furosemide 40 mg tablet 40 mg PO BID tab 09/19/20 potassium chloride 20 mEq tablet,extended release(part/cryst) 20 meq PO BID tab 09/19/20 Vitamin B Complex 1 tab PO DAILY 09/30/20 Warfarin Sodium 2 mg PO DAILY 09/30/20 Acetaminophen [Tylenol Tablet] 650 mg PO Q6H PRN PRN tab 10/04/20 Cefepime HCl [Maxipime] 2 gm IV Q8 10/04/20 Famotidine [Pepcid] 20 mg PO DAILY 10/04/20 Insulin Lispro [Humalog KwikPen] See Protocol SC ACHS 10/04/20 Mag Hydrox/Al Hydrox/Simeth [Mylanta II] 30 ml PO Q6H PRN PRN udc 10/04/20 Melatonin 3 mg PO QHS PRN PRN tab 10/04/20 Oxycodone [Oxyir] 5 mg PO Q4H PRN PRN 5 Days #20 tab 10/04/20 Senna/Docusate Sodium [Senokot-S] 2 tab PO BID PRN PRN tab 10/04/20 Lorazepam Intensol [Ativan Intensol] 1 mg PO Q4H PRN PRN bottle 10/11/20 morphine solution (IR) [Roxanol (IR oral solution)] 10 mg SL/PO Q1H PRN PRN 1 Days #1 po.syringe 10/11/20 Primary Care Physician: Man Cha MD [Primary Care Provider] - Disposition: Hospice Medical Facility Minutes spent on discharge:: 45 Patient Condition:: Poor Medical Necessity - Tobacco Use Smoking Status: Current every day smoker Meaningful Use Info Meaningful Use Diagnoses (Choose all that apply): None applicable Inpatient E&M: 13312 [facility]
--- NOTE | 2020-10-11 15:56 | NURSING ---
transport here to transfer to Hospice, belongings taken by family
== END 2020-10-11 15:54 | disposition hospice, inpatient (51) | DRG 559 ==
LOC: ED 08:54 → PCU 10:35
PROVIDERS: Internal Medicine Infectious Disease; Internal Medicine Nephrology; Nurse Practitioner Family; Emergency Provider Emergency Medicine; PCP Family Medicine
DX: T84.53XA Infection and inflammatory reaction due to internal right knee prosthesis, initial encounter (principal); G93.41 Metabolic encephalopathy; J96.01 Acute respiratory failure with hypoxia; J96.02 Acute respiratory failure with hypercapnia; N17.9 Acute kidney failure, unspecified; I13.0 Hypertensive heart and chronic kidney disease with heart failure and stage 1 through stage 4 chronic kidney disease, or unspecified chronic kidney disease; I50.32 Chronic diastolic (congestive) heart failure; I48.92 Unspecified atrial flutter; L97.909 Non-pressure chronic ulcer of unspecified part of unspecified lower leg with unspecified severity; E87.2 Acidosis; E87.1 Hypo-osmolality and hyponatremia; I27.20 Pulmonary hypertension, unspecified; E87.5 Hyperkalemia; Y83.1 Surgical operation with implant of artificial internal device as the cause of abnormal reaction of the patient, or of later complication, without mention of misadventure at the time of the procedure; N18.30 Chronic kidney disease, stage 3 unspecified; I48.0 Paroxysmal atrial fibrillation; E11.40 Type 2 diabetes mellitus with diabetic neuropathy, unspecified; E11.22 Type 2 diabetes mellitus with diabetic chronic kidney disease; M10.9 Gout, unspecified; E78.5 Hyperlipidemia, unspecified; J44.9 Chronic obstructive pulmonary disease, unspecified; N32.81 Overactive bladder; M19.90 Unspecified osteoarthritis, unspecified site; B96.5 Pseudomonas (aeruginosa) (mallei) (pseudomallei) as the cause of diseases classified elsewhere; I83.009 Varicose veins of unspecified lower extremity with ulcer of unspecified site; F17.290 Nicotine dependence, other tobacco product, uncomplicated; G25.0 Essential tremor; E66.01 Morbid (severe) obesity due to excess calories; Z68.38 Body mass index [BMI] 38.0-38.9, adult
CPT/HCPCS: 36415; 36592; 36600; 70450; 71045; 76770; 80048; 80053; 80069; 81001; 82140; 82570; 82728; 82803; 82962; 83540; 83550; 83605; 83880; 84156; 84300; 84484; 84540; 85025; 85027; 85379; 85610; 87040; 87205; 87426; 93005; 93306; 94002; 94003; 94762; 97162; 97166; 99285; 99406; J2185; J7030; Q9957; A4216; J1940; J3490